=== PATIENT | male | born 1945 | race African-American/Black ===

== ENCOUNTER 2016-03-03 12:49 | Emergency (ER) | payer MEDICARE, OTHER ==
[~2016-03-03] VITALS: Ht 175.3 cm; Wt 78.0 kg
[~2016-03-03 12:49] MED LIST: ACETAMINOPHEN650 M2 ORAL; ATIVAN0.5 MG ORAL; KEPPRA1000 MG ORAL; METOPROLOL SUCC25 MG ORAL; NORCO 10-325 T1 EACH ORAL; XANAX0.25 MG ORAL
[2016-03-03 13:57] VITALS: BP 158/88
[2016-03-03] MEDS ORDERED: NORCO 5-325 TA1 EAC1 ORAL (14:16)
[2016-03-03] MEDS ORDERED: KEPPRA1000 MG ORAL (14:16)
[2016-03-03 14:42] VITALS: BP 158/88
[2016-03-03] MEDS ORDERED: Norco 5mg/325mg tab ORAL ONE (14:45)
--- NOTE | 2016-03-03 19:37 | Emergency Room Report ---
History of Present Illness General Chief Complaint: Pain Source: Patient Present Illness HPI The patient is a 70-year-old male with a history of seizures and chronic right leg pain presenting for medication refill. The patient states that he has run out of medications and is unable to make an appointment with his primary care physician in the meantime. The leg pain is described as a 10 out of 10 dull ache. The patient states that he usually takes [place] for the pain and has run out. The patient denies recent injury. The patient denies any other symptoms including chest pain, shortness of breath , altered level of consciousness, dizziness, blurred vision, headache, nausea, vomiting, numbness or tingling Allergies: Coded Allergies: HALOPERIDOL (Verified Allergy, Mild, 01/13/16) Makes him irritable. THIORIDAZINE (Verified Allergy, Mild, 01/13/16) Makes him violent TRAZODONE (Verified Allergy, Mild, 01/13/16) Too strong; inability to move. Uncoded Allergies: PSYCHOTROPIC MEDICATION (Allergy, Mild, 08/13/14) Patient History Past Medical History: see triage record Pertinent Family History: none Reviewed Nursing Documentation: PMH: Agreed, PSxH: Agreed Nursing Documentation-PMH Hx Cardiac Problems: Yes Hx Hypertension: Yes Hx Cancer: Yes - HX OF PROSTATE Hx Gastrointestinal Problems: No Hx Neurological Problems: Yes Hx Seizures: Yes Review of Systems All Other Systems: negative except mentioned in HPI Physical Exam Vital Signs Date Time Temp Pulse Resp B/P Pulse Ox O2 Delivery O2 Flow Rate FiO2 03/03/16 12:55 97.9 89 20 165/90 100 Room Air Sp02 EP Interpretation: reviewed, normal General Appearance: no apparent distress, alert, GCS 15, non-toxic Head: normocephalic, atraumatic Eyes: bilateral eye PERRL, bilateral eye normal inspection Neck: full range of motion, supple/symm/no masses Respiratory: chest non-tender, lungs clear, normal breath sounds, speaking full sentences Cardiovascular #1: regular rate, rhythm, no edema Musculoskeletal: back normal, normal range of motion, tender - TTP over R hip and knee Neurologic: alert, oriented x3, responsive, motor strength/tone normal, sensory intact, speech normal Psychiatric: judgement/insight normal, memory normal, mood/affect normal, no suicidal/homicidal ideation Skin: normal color, no rash, warm/dry, well hydrated Medical Decision Making PA Attestation Dr. Castaneda is my supervising physician. Patient management was discussed with my supervising physician Diagnostic Impression: Primary Impression: Chronic low back pain Additional Impression: Seizure disorder ER Course The patient is a 70-year-old male with a history of seizures and chronic right leg pain presenting for medication refill. Differential diagnosis considered: Chronic pain, fracture, sprain, contusion Physical exam: The patient is hypertensive. Afebrile. Otherwise vitals within normal limits. No apparent distress There is tenderness to palpation over the entire right hip and knee. Full active range of motion. Slow ambulation. No ecchymosis. No obvious deformity. The patient was given [place] for pain. Patient discharged home with a refill of medications for [place] and Keppra. The patient states that he will walk across the street to make appointment with his primary care physician as discussed. ER precautions given Last Vital Signs Date Time Temp Pulse Resp B/P Pulse Ox O2 Delivery O2 Flow Rate FiO2 03/03/16 14:42 97.9 83 20 158/88 100 Room Air Status: improved Disposition: HOME, SELF-CARE Condition: Improved Scripts Hydrocodone Bit/Acetaminophen 5-325* (NORCO 5-325 TABLET*) 1 Each Tablet 1 TAB ORAL Q6HR Y for For Pain, #15 TAB Prov: ALAN IZAGUIRRE 03/03/16 Levetiracetam (KEPPRA) 1,000 Mg Tablet 1000 MG ORAL BID, #30 TAB 0 Refills Prov: ALAN IZAGUIRRE 03/03/16 Referrals: YU GARZA (PCP) Patient Instructions: Chronic Pain Additional Instructions: I discussed my findings with the patient. All questions and concerns have been answered. Treatment and medication compliance have been addressed. I advised the patient that they need to follow up with PMD in 3-5 days. Return to ED if symptoms worsen, new symptoms arise, or if needed for any reason. Patient verbalized understanding of discharge instructions. The patient is advised he needs to followup with pain management for further care ALAN IZAGUIRRE Mar 03, 2016 19:37
== END 2016-03-03 14:43 | disposition home or self-care (01) ==
LOC: EMR 13:59
DX: M54.5 Low back pain (principal); G89.29 Other chronic pain; Z76.0 Encounter for issue of repeat prescription; G40.909 Epilepsy, unspecified, not intractable, without status epilepticus; I10 Essential (primary) hypertension; Z85.46 Personal history of malignant neoplasm of prostate; Z88.8 Allergy status to other drugs, medicaments and biological substances
CPT/HCPCS: 99282

== ENCOUNTER 2016-03-23 17:14 | Emergency (ER) | payer MEDICARE, OTHER ==
[~2016-03-23] VITALS: Ht 175.3 cm; Wt 77.6 kg
[~2016-03-23 17:14] MED LIST changes: +NORCO 5-325 TA1 EAC1 ORAL
[2016-03-23] MEDS ORDERED: Methocarbamol 750mg tab ORAL ONE (18:30)
[2016-03-23] MEDS ORDERED: ROBAXIN-750750 MG PO (18:30)
[2016-03-23] MEDS ORDERED: Ketorolac 60mg Inj IM ONE (18:30)
--- NOTE | 2016-03-23 18:38 | Emergency Room Report ---
History of Present Illness General Chief Complaint: Pain Source: Patient Present Illness HPI 70 YO M with chronic lower back pain. Pain worse with movement, bending/ stretching. Denies assoc lower extremity weakness, urinary/fecal incontinence, fever/chills, dysuria, history of IVDU or malignancy. Specific request made for [place]. 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 "Nothing else works." Allergies: Coded Allergies: HALOPERIDOL (Verified Allergy, Mild, 01/13/16) Makes him irritable. THIORIDAZINE (Verified Allergy, Mild, 01/13/16) Makes him violent TRAZODONE (Verified Allergy, Mild, 01/13/16) Too strong; inability to move. Uncoded Allergies: PSYCHOTROPIC MEDICATION (Allergy, Mild, 08/13/14) Patient History Past Medical History: none Past Surgical History: none Pertinent Family History: none Social History: Denies: alcohol use, drug use, smoking Immunizations: UTD Reviewed Nursing Documentation: PMH: Agreed, PSxH: Agreed Nursing Documentation-PMH Past Medical History: No History, Except For Hx Cardiac Problems: Yes Hx Hypertension: Yes Hx Cancer: Yes - HX OF PROSTATE Hx Gastrointestinal Problems: No Hx Neurological Problems: Yes Hx Seizures: Yes Review of Systems All Other Systems: negative except mentioned in HPI Physical Exam Vital Signs Date Time Temp Pulse Resp B/P Pulse Ox O2 Delivery O2 Flow Rate FiO2 03/23/16 17:23 98.2 72 19 163/97 98 Room Air Sp02 EP Interpretation: reviewed, normal General Appearance: normal inspection, well appearing, no apparent distress, alert, GCS 15, non-toxic Head: normocephalic, atraumatic Eyes: bilateral eye EOMI, bilateral eye PERRL ENT: normal ENT inspection, hearing grossly normal, normal voice Neck: normal inspection, full range of motion, supple, no bony tend Respiratory: normal inspection, chest non-tender, lungs clear, normal breath sounds Cardiovascular #1: regular rate, rhythm, no edema Gastrointestinal: normal inspection, normal bowel sounds, non tender, soft, no guarding, no hernia Genitourinary: no CVA tenderness Musculoskeletal: normal inspection, back normal, normal range of motion, non- tender, Lilian's Sign negative Neurologic: normal inspection, alert, oriented x3, responsive, turf manager III-XII nml as tested, motor strength/tone normal, speech normal Psychiatric: normal inspection, judgement/insight normal, mood/affect normal Skin: normal inspection, normal color, no rash Lymphatic: normal inspection Medical Decision Making Diagnostic Impression: Primary Impression: Lumbar degenerative disc disease Additional Impressions: Chronic low back pain Qualified Codes: M54.5 - Low back pain; G89.29 - Other chronic pain Drug-seeking behavior ER Course A: low suspicion for cord compression given well appearance, paravertebral ttp, no focal neuro deficits, absence of midline ttp/masses and pain worse with movement with known exacerbating activity IM toradol given in ED DC with Robaxin Advised PMD and Pain Mgmt followup Likely drug seeking behavior Last Vital Signs Date Time Temp Pulse Resp B/P Pulse Ox O2 Delivery O2 Flow Rate FiO2 03/23/16 17:23 98.2 72 19 163/97 98 Room Air Status: improved Disposition: HOME, SELF-CARE Scripts Methocarbamol* (ROBAXIN-750*) 750 Mg Tablet 750 MG PO TID for 30 Days, #60 TAB 0 Refills Prov: STEVE MANUEL M.D. 03/23/16 Patient Instructions: Chronic Pain Additional Instructions: - Take Robaxin as prescribed up to 3x a day - it may take a few days to work. - Followup with the Orthopedist for your right knee as you have been told to do so STEVE MANUEL M.D. Mar 23, 2016 18:38
[2016-03-23 19:11] VITALS: BP 158/95
[2016-03-23 19:25] VITALS: BP 158/95
== END 2016-03-23 19:27 | disposition home or self-care (01) ==
LOC: EMR 18:35
DX: M51.36 Other intervertebral disc degeneration, lumbar region (principal); G89.29 Other chronic pain; Z76.5 Malingerer [conscious simulation]; I10 Essential (primary) hypertension; Z85.46 Personal history of malignant neoplasm of prostate
CPT/HCPCS: 96372; 99283

== ENCOUNTER 2016-05-04 15:19 | Emergency (ER) | payer MEDICARE, OTHER ==
[~2016-05-04] VITALS: Ht 175.3 cm; Wt 78.9 kg
[~2016-05-04 15:19] MED LIST changes: +ROBAXIN-750750 MG PO
[2016-05-04 16:31] VITALS: BP 144/98
[2016-05-04 16:32] VITALS: BP 144/98
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
== END 2016-05-04 18:00 | disposition home or self-care (01) ==
LOC: EMR 17:30
DX: G89.29 Other chronic pain (principal); F41.9 Anxiety disorder, unspecified; Z88.8 Allergy status to other drugs, medicaments and biological substances; I10 Essential (primary) hypertension; Z85.46 Personal history of malignant neoplasm of prostate
CPT/HCPCS: 99282

== ENCOUNTER 2016-07-05 15:30 | Inpatient (IN) | payer MEDICARE, OTHER ==
[~2016-07-05] VITALS: Ht 175.3 cm; Wt 78.9 kg
[2016-07-05 15:49] VITALS: BP 165/96
[2016-07-05] MEDS ORDERED: Famotidine 20 MG/ 2ML VIAL IVP ONE (16:00)
[2016-07-05] MEDS ORDERED: LORazepam Inj 2mg/ml 1ml IV ONE (16:00)
--- NOTE | 2016-07-05 16:13 | Emergency Room Report ---
History of Present Illness General Chief Complaint: General Complaint Source: Patient Present Illness HPI Patient presents with complaints of general body weakness Patient reports that he was recently discharged from [facility] Patient had multiple seizures and describes being intubated He feels some soreness in his throat Denies any chest pain at this time Patient denies any vomiting however he does have increased epigastric burning And reflux sensation Denies any flank pain however he has pain in his upper shoulders pelvic area and lower extremities Denies any focal weakness Allergies: Coded Allergies: HALOPERIDOL (Verified Allergy, Mild, [place] really bad, 07/05/16) Makes him irritable. THIORIDAZINE (Verified Allergy, Mild, [place] really bad, 07/05/16) Makes him violent TRAZODONE (Verified Allergy, Mild, [place] really bad, 07/05/16) Too strong; inability to move. Uncoded Allergies: PSYCHOTROPIC MEDICATION (Allergy, Mild, 08/13/14) Patient History Past Medical History: see triage record Pertinent Family History: none Reviewed Nursing Documentation: PMH: Agreed, PSxH: Agreed Nursing Documentation-PMH Past Medical History: No History, Except For Hx Cardiac Problems: Yes Hx Hypertension: Yes Hx Cancer: Yes - HX OF PROSTATE Hx Gastrointestinal Problems: Yes - reflux Hx Neurological Problems: Yes Hx Seizures: Yes Review of Systems All Other Systems: negative except mentioned in HPI Physical Exam Vital Signs Date Time Temp Pulse Resp B/P Pulse Ox O2 Delivery O2 Flow Rate FiO2 07/05/16 15:36 97.9 82 18 165/96 98 Room Air Sp02 EP Interpretation: reviewed, normal General Appearance: no apparent distress Head: normocephalic, atraumatic Eyes: bilateral eye EOMI, bilateral eye PERRL ENT: hearing grossly normal, normal pharynx, TMs + canals normal, uvula midline Neck: full range of motion, supple, no meningismus, no bony tend Respiratory: lungs clear, normal breath sounds, no rhonchi, no respiratory distress, no retraction, no accessory muscle use Cardiovascular #1: normal peripheral pulses, regular rate, rhythm, no edema, no gallop, no JVD, no murmur Gastrointestinal: normal bowel sounds, non tender, soft, no mass, no organomegaly, non-distended, no guarding, no hernia, no pulsatile mass, no rebound Genitourinary: no CVA tenderness Musculoskeletal: normal inspection Neurologic: oriented x3, responsive, copper plater III-XII nml as tested, motor strength/ tone normal, sensory intact Psychiatric: mood/affect normal Skin: normal color, no rash, warm/dry, palpation normal Lymphatic: normal inspection, no adenopathy Medical Decision Making Diagnostic Impression: Primary Impression: Seizure disorder Additional Impressions: Clonic seizures, intractable Weakness Myalgia ER Course Patient has recent multiple seizures Feels unstable Patient is complex requiring blood work and imaging studies Baseline blood work appear normal thus far Patient continues to feel better At this time requires further inpatient care Labs Test 07/05/16 16:05 White Blood Count 4.0 K/UL (4.8-10.8) Red Blood Count 4.07 M/UL (4.70-6.10) Hemoglobin 12.3 G/DL (14.2-18.0) Hematocrit 37.9 % (42.0-52.0) Mean Corpuscular Volume 93 FL (80-99) Mean Corpuscular Hemoglobin 30.1 PG (27.0-31.0) Mean Corpuscular Hemoglobin Concent 32.4 G/DL (32.0-36.0) Red Cell Distribution Width 21.1 % (11.6-14.8) Platelet Count 238 K/UL (150-450) Mean Platelet Volume 7.0 FL (6.5-10.1) Neutrophils (%) (Auto) 64.7 % (45.0-75.0) Lymphocytes (%) (Auto) 20.5 % (20.0-45.0) Monocytes (%) (Auto) 11.5 % (1.0-10.0) Eosinophils (%) (Auto) 1.4 % (0.0-3.0) Basophils (%) (Auto) 2.0 % (0.0-2.0) Sodium Level 141 mEQ/L (135-145) Potassium Level 3.8 mEQ/L (3.4-4.9) Chloride Level 102 mEQ/L (98-107) Carbon Dioxide Level 24 mEQ/L (20-30) Anion Gap 15 (5-15) Blood Urea Nitrogen 20 mg/dL (7-23) Creatinine 1.4 mg/dL (0.7-1.2) Estimat Glomerular Filtration Rate > 60 mL/min (>60) Glucose Level 101 mg/dL (74-106) Calcium Level 9.4 mg/dL (8.6-10.2) Total Bilirubin 0.5 mg/dL (0.0-1.2) Aspartate Amino Transf (AST/SGOT) 21 U/L (5-40) Alanine Aminotransferase (ALT/SGPT) 15 U/L (3-41) Alkaline Phosphatase 74 U/L (40-129) Total Creatine Kinase 42 U/L (38-174) Creatine Kinase MB < 1.5 ng/mL (< 6.7) Creatine Kinase MB Relative Index Troponin I < 0.30 ng/mL (<=0.30) Total Protein 7.5 g/dL (6.6-8.7) Albumin 4.1 g/dL (3.5-5.2) Globulin 3.4 g/dL Albumin/Globulin Ratio 1.2 (1.0-2.7) Lipase 70 U/L (< 60) Rhythm Strip Diag. Results EP Interpretation: yes Rate: 66 Rhythm: NSR, no PVC's, no ectopy Chest X-Ray Diagnostic Results EP Interpretation: Yes Findings: no consolidation, no effusion, no pneumothorax Number of Views: 1 Last Vital Signs Date Time Temp Pulse Resp B/P Pulse Ox O2 Delivery O2 Flow Rate FiO2 07/05/16 15:49 97.9 18 165/96 98 Room Air 07/05/16 15:36 82 Status: improved Disposition: ADMITTED INPATIENT Condition: Serious LIZ ROCHA D.O. July 05, 2016 16:13
[2016-07-05 16:39] LABS: EOSINOPHILS % (AUTO) 1.4 % (0.0-3.0); LYMPHOCYTES % (AUTO) 20.5 % (20.0-45.0); MEAN CORPUSCULAR HEMOGLOBIN 30.1 PG (27.0-31.0); MEAN CORPUSCULAR HGB CONC 32.4 G/DL (32.0-36.0); MEAN CORPUSCULAR VOLUME 93 FL (80-99); MONOCYTES % (AUTO) 11.5 % (1.0-10.0); NEUTROPHILS % (AUTO) 64.7 % (45.0-75.0); PLATELET COUNT 238 K/UL (150-450); RED BLOOD COUNT 4.07 M/UL (4.70-6.10); RED CELL DISTRIBUTION WIDTH 21.1 % (11.6-14.8)
[2016-07-05 16:50] LABS: TROPONIN I < 0.30 ng/mL (<=0.30)
[2016-07-05 16:51] LABS: ALANINE AMINOTRANSFERASE 15 U/L (3-41); ALBUMIN/GLOBULIN RATIO 1.2 (1.0-2.7); ANION GAP 15 (5-15); ASPARTATE AMINO TRANSFERASE 21 U/L (5-40); CALCIUM 9.4 mg/dL (8.6-10.2); CARBON DIOXIDE 24 mEQ/L (20-30); CHLORIDE 102 mEQ/L (98-107); CREATININE 1.4 mg/dL (0.7-1.2); GLOMERULAR FILTRATION RATE > 60 mL/min (>60); HEMOLYSIS 8; LIPASE 70 U/L (< 60); POTASSIUM 3.8 mEQ/L (3.4-4.9); SODIUM 141 mEQ/L (135-145); TOTAL PROTEIN 7.5 g/dL (6.6-8.7)
[2016-07-05 17:02] LABS: CKMB < 1.5 ng/mL (< 6.7)
[2016-07-05 18:28] VITALS: BP 147/81
[2016-07-05] MEDS ORDERED: XANAX1 MG ORAL (19:00)
[2016-07-05] MEDS ORDERED: KEPPRA750 MG ORAL (19:08)
[2016-07-05] MEDS ORDERED: CARVEDILOL6.25 MG ORAL (19:16)
[2016-07-05] MEDS ORDERED: ATORVASTATIN CA20 MG ORAL (19:16)
[2016-07-05] MEDS ORDERED: LISINOPRIL10 MG ORAL (19:16)
[2016-07-05] MEDS ORDERED: FAMOTIDINE20 MG ORAL (19:16)
[2016-07-05] MEDS ORDERED: OMEPRAZOLE40 M1 ORAL (19:16)
[2016-07-05] MEDS ORDERED: Miralax 17gm pkt ORAL PRN (19:30)
[2016-07-05] MEDS ORDERED: Mylanta II UD 30ml ORAL PRN (19:30)
[2016-07-05] MEDS ORDERED: LORazepam Inj 2mg/ml 1ml IV PRN (19:30)
[2016-07-05 19:54] VITALS: BP 133/88
[2016-07-05] MEDS: Atorvastatin 20mg tab ORAL SCH (20:48)
[2016-07-05] MEDS: Carvedilol 6.25mg Tab ORAL SCH (20:48)
[2016-07-05] MEDS: Heparin 5000 units/ml inj SUBQ SCH (20:55)
[2016-07-05] MEDS: Morphine Sulfate 2mg/ml Inj IVP PRN (21:20)
[2016-07-05 23:59] VITALS: BP 127/82
[2016-07-06 04:00] VITALS: BP 131/74
[2016-07-06] MEDS: Morphine Sulfate 2mg/ml Inj IVP PRN ×3 (05:56→17:51)
[2016-07-06 07:04] LABS: EOSINOPHILS % (AUTO) 0.9 % (0.0-3.0); LYMPHOCYTES % (AUTO) 13.3 % (20.0-45.0); MEAN CORPUSCULAR HEMOGLOBIN 27.8 PG (27.0-31.0); MEAN CORPUSCULAR HGB CONC 31.1 G/DL (32.0-36.0); MEAN CORPUSCULAR VOLUME 89 FL (80-99); MEAN PLATELET VOLUME 7.3 FL (6.5-10.1); MONOCYTES % (AUTO) 10.9 % (1.0-10.0); NEUTROPHILS % (AUTO) 73.9 % (45.0-75.0); PLATELET COUNT 259 K/UL (150-450); RED BLOOD COUNT 4.29 M/UL (4.70-6.10); RED CELL DISTRIBUTION WIDTH 21.6 % (11.6-14.8); WHITE BLOOD COUNT 5.2 K/UL (4.8-10.8)
[2016-07-06 07:26] LABS: ALANINE AMINOTRANSFERASE 17 U/L (3-41); ALBUMIN/GLOBULIN RATIO 1.1 (1.0-2.7); ANION GAP 13 (5-15); ASPARTATE AMINO TRANSFERASE 21 U/L (5-40); CALCIUM 9.2 mg/dL (8.6-10.2); CARBON DIOXIDE 23 mEQ/L (20-30); CHLORIDE 105 mEQ/L (98-107); CREATININE 1.2 mg/dL (0.7-1.2); GLOMERULAR FILTRATION RATE > 60 mL/min (>60); HEMOLYSIS 4; POTASSIUM 3.6 mEQ/L (3.4-4.9); SODIUM 141 mEQ/L (135-145); TOTAL PROTEIN 7.1 g/dL (6.6-8.7)
[2016-07-06 08:03] VITALS: BP 122/73
--- NOTE | 2016-07-06 08:28 | General Progress Note ---
Assessment/Plan Assessment/Plan (1) Lumbar DDD (2) Lumbar Spondylosis (3) Lumbar Radiculopathy (4) Lumbar Herniated disc (5) Multiple Joint OA (6) B/L knee pain Pt will be continued on [place] and Morphine. Pt was d/w Dr. Link and he concurred. Thank you for the courtesy of this consultation. Subjective Date patient seen: July 06, 2016 Time patient seen: 07:30 - am Allergies: Coded Allergies: HALOPERIDOL (Verified Allergy, Mild, [place] really bad, 07/05/16) Makes him irritable. THIORIDAZINE (Verified Allergy, Mild, [place] really bad, 07/05/16) Makes him violent TRAZODONE (Verified Allergy, Mild, [place] really bad, 07/05/16) Too strong; inability to move. Uncoded Allergies: PSYCHOTROPIC MEDICATION (Allergy, Mild, 08/13/14) Subjective Constitutional: Reports: weakness, Denies: chills, diaphoresis, fever, malaise , no symptoms, other HEENT: Denies: blurred vision, double vision, ear discharge, ear pain, eye pain , mouth pain, mouth swelling, no symptoms, nose congestion, nose pain, other, tearing, throat pain, throat swelling Cardiovascular: Denies: chest pain, edema, irregular heart rate, lightheadedness, no symptoms, other, palpitations, syncope Respiratory: Denies: SOB at rest, SOB with excertion, cough, no symptoms, orthopnea, other, shortness of breath, sputum, stridor, wheezing Gastrointestinal/Abdominal: Denies: abdomen distended, abdominal pain, black stools, blood in stool, constipated, diarrhea, difficulty swallowing, nausea, no symptoms, other, poor appetite, poor fluid intake, rectal bleeding, tarry stools, vomiting Genitourinary: Denies: burning, discharge, flank pain, frequency, hematuria, incontinence, no symptoms, other, pain, urgency Neurologic/Psychiatric: Reports: weakness, Denies: anxiety, depressed, emotional problems, headache, no symptoms, numbness, other, paresthesia, pre- existing deficit, seizure, tingling, tremors Endocrine: Denies: excessive sweating, flushing, increased hunger, increased thirst, increased urine, intolerance to cold, intolerance to heat, no symptoms, other, unexplained weight gain, unexplained weight loss Hematologic/Lymphatic: Denies: anemia, easy bleeding, easy bruising, no symptoms, other Subjective Patient has been seen in the past on prior admissions admitted due to seizure. He continues to c/o pain in his back and joints. Started on Morphine and [place]. Objective Last 24 Hour Vital Signs Date Time Temp Pulse Resp B/P Pulse Ox O2 Delivery O2 Flow Rate FiO2 07/06/16 08:03 96.6 66 18 122/73 100 Room Air 07/06/16 04:00 97.9 86 18 131/74 99 Room Air 07/05/16 23:59 98.0 69 18 127/82 100 Room Air 07/05/16 22:14 99.0 07/05/16 20:48 74 133/88 07/05/16 19:54 97.7 74 20 133/88 99 Room Air 07/05/16 18:29 97.9 72 18 147/81 98 Room Air 07/05/16 18:28 72 18 147/81 98 Room Air 07/05/16 15:49 97.9 18 165/96 98 Room Air 07/05/16 15:36 97.9 82 18 165/96 98 Room Air Intake and Output 07/05/16 07/06/16 19:00 07:00 Intake Total 500 ml 200 ml Balance 500 ml 200 ml Intake Oral 0 ml 200 ml IV Total 500 ml # Voids 3 # Bowel Movements 1 1 Laboratory Tests 07/05/16 16:05: White Blood Count 4.0L, Red Blood Count 4.07L, Hemoglobin 12.3L, Hematocrit 37.9L, Mean Corpuscular Volume 93, Mean Corpuscular Hemoglobin 30.1, Mean Corpuscular Hemoglobin Concent 32.4, Red Cell Distribution Width 21.1H, Platelet Count 238, Mean Platelet Volume 7.0, Neutrophils (%) (Auto) 64.7, Lymphocytes (%) (Auto) 20.5, Monocytes (%) (Auto) 11.5H, Eosinophils (%) (Auto) 1.4, Basophils (%) (Auto) 2.0, Sodium Level 141, Potassium Level 3.8, Chloride Level 102, Carbon Dioxide Level 24, Anion Gap 15, Blood Urea Nitrogen 20, Creatinine 1.4H, Estimat Glomerular Filtration Rate > 60, Glucose Level 101, Calcium Level 9.4, Total Bilirubin 0.5, Aspartate Amino Transf (AST/SGOT) 21, Alanine Aminotransferase (ALT/SGPT) 15, Alkaline Phosphatase 74, Total Creatine Kinase 42, Creatine Kinase MB < 1.5, Creatine Kinase MB Relative Index , Troponin I < 0.30, Total Protein 7.5, Albumin 4.1, Globulin 3.4, Albumin/ Globulin Ratio 1.2, Lipase 70H 07/06/16 04:50: White Blood Count 5.2, Red Blood Count 4.29L, Hemoglobin 11.9L, Hematocrit 38.4L , Mean Corpuscular Volume 89, Mean Corpuscular Hemoglobin 27.8, Mean Corpuscular Hemoglobin Concent 31.1L, Red Cell Distribution Width 21.6H, Platelet Count 259, Mean Platelet Volume 7.3, Neutrophils (%) (Auto) 73.9, Lymphocytes (%) (Auto) 13.3L, Monocytes (%) (Auto) 10.9H, Eosinophils (%) (Auto ) 0.9, Basophils (%) (Auto) 1.0, Sodium Level 141, Potassium Level 3.6, Chloride Level 105, Carbon Dioxide Level 23, Anion Gap 13, Blood Urea Nitrogen 18, Creatinine 1.2, Estimat Glomerular Filtration Rate > 60, Glucose Level 97, Calcium Level 9.2, Total Bilirubin 0.3, Aspartate Amino Transf (AST/SGOT) 21, Alanine Aminotransferase (ALT/SGPT) 17, Alkaline Phosphatase 84, Total Protein 7.1, Albumin 3.8, Globulin 3.3, Albumin/Globulin Ratio 1.1 Height (Feet): 5 Height (Inches): 9.00 Weight (Pounds): 174 Objective General Appearance: no apparent distress, alert EENT: PERRL/EOMI, normal ENT inspection Neck: non-tender, normal alignment Cardiovascular: normal rate, regular rhythm Respiratory/Chest: decreased breath sounds Abdomen: non tender, soft Extremities: non-tender Edema: no edema noted Arm (L), no edema noted Arm (R), no edema noted Leg (L), no edema noted Leg (R), no edema noted Pedal (L), no edema noted Pedal (R), no edema noted Generalized Neurologic: alert, oriented x 3 Skin: warm/dry VICTOR M FLORES N. P.Gigi July 06, 2016 08:28
[2016-07-06] MEDS: Carvedilol 6.25mg Tab ORAL SCH ×2 (09:53→20:46)
[2016-07-06] MEDS: Heparin 5000 units/ml inj SUBQ SCH ×2 (09:53→20:54)
[2016-07-06] MEDS: Lisinopril 10mg tab ORAL SCH (09:53)
--- NOTE | 2016-07-06 10:55 | Diagnostic Imaging Report ---
Indication: CP shortness of breath Technique: One view of the chest Comparison: none Findings: Lungs and pleural spaces are clear. Heart size is normal. Again demonstrated is scalloping of the right hemidiaphragm Impression: No acute process
--- NOTE | 2016-07-06 11:30 | Consultation ---
Consult Note Consult Note PODIATRY CONSULTATION DATE OF CONSULTATION: 07/06/16 REASON FOR CONSULT: Right foot pain CONSULTING PHYSICIAN: Jori Sharp DPM COVERING FOR: Edward Wayne DPM HISTORY OF PRESENT ILLNESS: Patient states 3 month history of progressively worsening right foot pain. He states a history of previous bilateral bunion surgery with recurrence of the right foot bunion. He mentions that he has a difficult time finding shoes that are comfortable secondary the bunion deformity. No history of ulceration or drainage noted at the area. No current nausea, vomiting, fevers, or chills reported. Patient has difficulty ambulating secondary to right knee pain. ALLERGIES: Haloperidol, psychotropic medication, thioridazine, and trazodone PAST MEDICAL HISTORY: Prostate cancer, seizure disorder, low back pain, and right knee osteoarthritis SURGICAL HISTORY: Bilateral foot bunionectomy in 2006 and prostate resection SOCIAL HISTORY: Patient states no current tobacco, alcohol, or illicit drug use. Patient states that he quit illicit drug use in his 20s. He is currently homeless. He has one son and 3 daughters. FAMILY HISTORY: Non contributory MEDICATIONS: Reviewed. Please refer to chart for details Last 24 Hour Vital Signs Date Time Temp Pulse Resp B/P Pulse Ox O2 Delivery O2 Flow Rate FiO2 07/06/16 09:53 122/73 07/06/16 09:53 66 122/73 07/06/16 08:03 96.6 66 18 122/73 100 Room Air 07/06/16 04:00 97.9 86 18 131/74 99 Room Air 07/05/16 23:59 98.0 69 18 127/82 100 Room Air 07/05/16 22:14 99.0 07/05/16 20:48 74 133/88 07/05/16 19:54 97.7 74 20 133/88 99 Room Air 07/05/16 18:29 97.9 72 18 147/81 98 Room Air 07/05/16 18:28 72 18 147/81 98 Room Air 07/05/16 15:49 97.9 18 165/96 98 Room Air 07/05/16 15:36 97.9 82 18 165/96 98 Room Air Laboratory Tests Test 07/05/16 16:05 07/06/16 04:50 White Blood Count 4.0 K/UL (4.8-10.8) L 5.2 K/UL (4.8-10.8) Red Blood Count 4.07 M/UL (4.70-6.10) L 4.29 M/UL (4.70-6.10) L Hemoglobin 12.3 G/DL (14.2-18.0) L 11.9 G/DL (14.2-18.0) L Hematocrit 37.9 % (42.0-52.0) L 38.4 % (42.0-52.0) L Mean Corpuscular Volume 93 FL (80-99) 89 FL (80-99) Mean Corpuscular Hemoglobin 30.1 PG (27.0-31.0) 27.8 PG (27.0-31.0) Mean Corpuscular Hemoglobin Concent 32.4 G/DL (32.0-36.0) 31.1 G/DL (32.0-36.0) L Red Cell Distribution Width 21.1 % (11.6-14.8) H 21.6 % (11.6-14.8) H Platelet Count 238 K/UL (150-450) 259 K/UL (150-450) Mean Platelet Volume 7.0 FL (6.5-10.1) 7.3 FL (6.5-10.1) Neutrophils (%) (Auto) 64.7 % (45.0-75.0) 73.9 % (45.0-75.0) Lymphocytes (%) (Auto) 20.5 % (20.0-45.0) 13.3 % (20.0-45.0) L Monocytes (%) (Auto) 11.5 % (1.0-10.0) H 10.9 % (1.0-10.0) H Eosinophils (%) (Auto) 1.4 % (0.0-3.0) 0.9 % (0.0-3.0) Basophils (%) (Auto) 2.0 % (0.0-2.0) 1.0 % (0.0-2.0) Sodium Level 141 mEQ/L (135-145) 141 mEQ/L (135-145) Potassium Level 3.8 mEQ/L (3.4-4.9) 3.6 mEQ/L (3.4-4.9) Chloride Level 102 mEQ/L (98-107) 105 mEQ/L (98-107) Carbon Dioxide Level 24 mEQ/L (20-30) 23 mEQ/L (20-30) Anion Gap 15 (5-15) 13 (5-15) Blood Urea Nitrogen 20 mg/dL (7-23) 18 mg/dL (7-23) Creatinine 1.4 mg/dL (0.7-1.2) H 1.2 mg/dL (0.7-1.2) Estimat Glomerular Filtration Rate > 60 mL/min (>60) > 60 mL/min (>60) Glucose Level 101 mg/dL (74-106) 97 mg/dL (74-106) Calcium Level 9.4 mg/dL (8.6-10.2) 9.2 mg/dL (8.6-10.2) Total Bilirubin 0.5 mg/dL (0.0-1.2) 0.3 mg/dL (0.0-1.2) Aspartate Amino Transf (AST/SGOT) 21 U/L (5-40) 21 U/L (5-40) Alanine Aminotransferase (ALT/SGPT) 15 U/L (3-41) 17 U/L (3-41) Alkaline Phosphatase 74 U/L (40-129) 84 U/L (40-129) Total Creatine Kinase 42 U/L (38-174) Creatine Kinase MB < 1.5 ng/mL (< 6.7) Creatine Kinase MB Relative Index Troponin I < 0.30 ng/mL (<=0.30) Total Protein 7.5 g/dL (6.6-8.7) 7.1 g/dL (6.6-8.7) Albumin 4.1 g/dL (3.5-5.2) 3.8 g/dL (3.5-5.2) Globulin 3.4 g/dL 3.3 g/dL Albumin/Globulin Ratio 1.2 (1.0-2.7) 1.1 (1.0-2.7) Lipase 70 U/L (< 60) H PHYSICAL EXAM: DERM: Hyperkeratosis noted at the medial aspect of the right foot 1st metatarsal head. Pain with palpation of the area and with attempted range of motion of the 1st metatarsophalangeal joint. Surrounding edema present. Old well healed surgical scars of bilateral feet VASC: Pedal pulses palpable NEURO: Sensation in tact to light touch MSK: Right foot hallux valgus with bunion. Hammertoe deformity of toes 3-5 on the left and 2-5 on the right. Muscle strength appropriate for age. Pain with palpation at the medial head of the right foot 1st metatarsal head and with range of motion of the 1st metatarsophalangeal joint . Assessment/Plan - Right foot pain at the medial 1st metatarsal head as well as at the 1st metatarsophalangeal joint. Patient has a bunion with possible bursitis and osteoarthritis. Ordered right foot xray and uric acid levels. Patient to use a post op shoe - Bilateral foot hammertoe deformities. Instructed patient to use shoes that are able to accommodate his foot deformities. Jori Sharp DPM July 06, 2016 11:30
[2016-07-06 11:55] VITALS: BP 127/89
--- NOTE | 2016-07-06 12:16 | Neurology Progress Note ---
Objective Physical Exam Last Vital Signs Date Time Temp Pulse Resp B/P Pulse Ox O2 Delivery O2 Flow Rate FiO2 07/06/16 11:55 97.6 71 18 127/89 100 Room Air Laboratory Tests Test 07/05/16 16:05 07/06/16 04:50 White Blood Count 4.0 K/UL (4.8-10.8) L 5.2 K/UL (4.8-10.8) Red Blood Count 4.07 M/UL (4.70-6.10) L 4.29 M/UL (4.70-6.10) L Hemoglobin 12.3 G/DL (14.2-18.0) L 11.9 G/DL (14.2-18.0) L Hematocrit 37.9 % (42.0-52.0) L 38.4 % (42.0-52.0) L Mean Corpuscular Volume 93 FL (80-99) 89 FL (80-99) Mean Corpuscular Hemoglobin 30.1 PG (27.0-31.0) 27.8 PG (27.0-31.0) Mean Corpuscular Hemoglobin Concent 32.4 G/DL (32.0-36.0) 31.1 G/DL (32.0-36.0) L Red Cell Distribution Width 21.1 % (11.6-14.8) H 21.6 % (11.6-14.8) H Platelet Count 238 K/UL (150-450) 259 K/UL (150-450) Mean Platelet Volume 7.0 FL (6.5-10.1) 7.3 FL (6.5-10.1) Neutrophils (%) (Auto) 64.7 % (45.0-75.0) 73.9 % (45.0-75.0) Lymphocytes (%) (Auto) 20.5 % (20.0-45.0) 13.3 % (20.0-45.0) L Monocytes (%) (Auto) 11.5 % (1.0-10.0) H 10.9 % (1.0-10.0) H Eosinophils (%) (Auto) 1.4 % (0.0-3.0) 0.9 % (0.0-3.0) Basophils (%) (Auto) 2.0 % (0.0-2.0) 1.0 % (0.0-2.0) Sodium Level 141 mEQ/L (135-145) 141 mEQ/L (135-145) Potassium Level 3.8 mEQ/L (3.4-4.9) 3.6 mEQ/L (3.4-4.9) Chloride Level 102 mEQ/L (98-107) 105 mEQ/L (98-107) Carbon Dioxide Level 24 mEQ/L (20-30) 23 mEQ/L (20-30) Anion Gap 15 (5-15) 13 (5-15) Blood Urea Nitrogen 20 mg/dL (7-23) 18 mg/dL (7-23) Creatinine 1.4 mg/dL (0.7-1.2) H 1.2 mg/dL (0.7-1.2) Estimat Glomerular Filtration Rate > 60 mL/min (>60) > 60 mL/min (>60) Glucose Level 101 mg/dL (74-106) 97 mg/dL (74-106) Calcium Level 9.4 mg/dL (8.6-10.2) 9.2 mg/dL (8.6-10.2) Total Bilirubin 0.5 mg/dL (0.0-1.2) 0.3 mg/dL (0.0-1.2) Aspartate Amino Transf (AST/SGOT) 21 U/L (5-40) 21 U/L (5-40) Alanine Aminotransferase (ALT/SGPT) 15 U/L (3-41) 17 U/L (3-41) Alkaline Phosphatase 74 U/L (40-129) 84 U/L (40-129) Total Creatine Kinase 42 U/L (38-174) Creatine Kinase MB < 1.5 ng/mL (< 6.7) Creatine Kinase MB Relative Index Troponin I < 0.30 ng/mL (<=0.30) Total Protein 7.5 g/dL (6.6-8.7) 7.1 g/dL (6.6-8.7) Albumin 4.1 g/dL (3.5-5.2) 3.8 g/dL (3.5-5.2) Globulin 3.4 g/dL 3.3 g/dL Albumin/Globulin Ratio 1.2 (1.0-2.7) 1.1 (1.0-2.7) Lipase 70 U/L (< 60) H Uric Acid 4.6 mg/dL (3.0-7.5) Impression/Recommendations Problems: (1) chronic pain, opiate and benzo dependent (2) exacerbation of seizure d/o 2/2 noncompliance (3) posttraumatic seizure disorder (4) Prostate cancer, primary, 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
--- NOTE | 2016-07-06 14:28 | Diagnostic Imaging Report ---
Indication: Pain Comparison: None Findings: 3 views of the right foot were obtained. The bones are osteopenic. There is a moderate to severe osteoarthrosis of the first MTP joint which is narrowed with osteophytes. Hallux valgus and subluxation noted. This degenerative joint disease also noted within the metatarsal tarsal joints and several interphalangeal joints. There is no fracture or obvious traumatic injury identified. Vascular calcifications are noted. Impression: Degenerative changes as described above.
--- NOTE | 2016-07-06 15:42 | Infectious Diseases Prog Note ---
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 THIORIDAZINE (Verified Allergy, Mild, [place] really bad, 07/05/16) Makes him violent TRAZODONE (Verified Allergy, Mild, [place] really bad, 07/05/16) Too strong; inability to move. Uncoded Allergies: PSYCHOTROPIC MEDICATION (Allergy, Mild, 08/13/14) Objective Vital Signs Last 24 Hour Vital Signs Date Time Temp Pulse Resp B/P Pulse Ox O2 Delivery O2 Flow Rate FiO2 07/06/16 11:55 97.6 71 18 127/89 100 Room Air 07/06/16 09:53 122/73 07/06/16 09:53 66 122/73 07/06/16 08:03 96.6 66 18 122/73 100 Room Air 07/06/16 04:00 97.9 86 18 131/74 99 Room Air 07/05/16 23:59 98.0 69 18 127/82 100 Room Air 07/05/16 22:14 99.0 07/05/16 20:48 74 133/88 07/05/16 19:54 97.7 74 20 133/88 99 Room Air 07/05/16 18:29 97.9 72 18 147/81 98 Room Air 07/05/16 18:28 72 18 147/81 98 Room Air 07/05/16 15:49 97.9 18 165/96 98 Room Air Height (Feet): 5 Height (Inches): 9.00 Weight (Pounds): 174 Laboratory Tests Test 07/05/16 16:05 07/06/16 04:50 White Blood Count 4.0 K/UL (4.8-10.8) L 5.2 K/UL (4.8-10.8) Red Blood Count 4.07 M/UL (4.70-6.10) L 4.29 M/UL (4.70-6.10) L Hemoglobin 12.3 G/DL (14.2-18.0) L 11.9 G/DL (14.2-18.0) L Hematocrit 37.9 % (42.0-52.0) L 38.4 % (42.0-52.0) L Mean Corpuscular Volume 93 FL (80-99) 89 FL (80-99) Mean Corpuscular Hemoglobin 30.1 PG (27.0-31.0) 27.8 PG (27.0-31.0) Mean Corpuscular Hemoglobin Concent 32.4 G/DL (32.0-36.0) 31.1 G/DL (32.0-36.0) L Red Cell Distribution Width 21.1 % (11.6-14.8) H 21.6 % (11.6-14.8) H Platelet Count 238 K/UL (150-450) 259 K/UL (150-450) Mean Platelet Volume 7.0 FL (6.5-10.1) 7.3 FL (6.5-10.1) Neutrophils (%) (Auto) 64.7 % (45.0-75.0) 73.9 % (45.0-75.0) Lymphocytes (%) (Auto) 20.5 % (20.0-45.0) 13.3 % (20.0-45.0) L Monocytes (%) (Auto) 11.5 % (1.0-10.0) H 10.9 % (1.0-10.0) H Eosinophils (%) (Auto) 1.4 % (0.0-3.0) 0.9 % (0.0-3.0) Basophils (%) (Auto) 2.0 % (0.0-2.0) 1.0 % (0.0-2.0) Sodium Level 141 mEQ/L (135-145) 141 mEQ/L (135-145) Potassium Level 3.8 mEQ/L (3.4-4.9) 3.6 mEQ/L (3.4-4.9) Chloride Level 102 mEQ/L (98-107) 105 mEQ/L (98-107) Carbon Dioxide Level 24 mEQ/L (20-30) 23 mEQ/L (20-30) Anion Gap 15 (5-15) 13 (5-15) Blood Urea Nitrogen 20 mg/dL (7-23) 18 mg/dL (7-23) Creatinine 1.4 mg/dL (0.7-1.2) H 1.2 mg/dL (0.7-1.2) Estimat Glomerular Filtration Rate > 60 mL/min (>60) > 60 mL/min (>60) Glucose Level 101 mg/dL (74-106) 97 mg/dL (74-106) Calcium Level 9.4 mg/dL (8.6-10.2) 9.2 mg/dL (8.6-10.2) Total Bilirubin 0.5 mg/dL (0.0-1.2) 0.3 mg/dL (0.0-1.2) Aspartate Amino Transf (AST/SGOT) 21 U/L (5-40) 21 U/L (5-40) Alanine Aminotransferase (ALT/SGPT) 15 U/L (3-41) 17 U/L (3-41) Alkaline Phosphatase 74 U/L (40-129) 84 U/L (40-129) Total Creatine Kinase 42 U/L (38-174) Creatine Kinase MB < 1.5 ng/mL (< 6.7) Creatine Kinase MB Relative Index Troponin I < 0.30 ng/mL (<=0.30) Total Protein 7.5 g/dL (6.6-8.7) 7.1 g/dL (6.6-8.7) Albumin 4.1 g/dL (3.5-5.2) 3.8 g/dL (3.5-5.2) Globulin 3.4 g/dL 3.3 g/dL Albumin/Globulin Ratio 1.2 (1.0-2.7) 1.1 (1.0-2.7) Lipase 70 U/L (< 60) H Uric Acid 4.6 mg/dL (3.0-7.5) Current Medications Medications (Trade) Dose Ordered Sig/Jesi Route PRN Reason Start Time Stop Time Status Last Admin Dose Admin Acetaminophen (Tylenol) 650 mg Q4H PRN ORAL fever 07/05/16 19:30 08/04/16 19:29 Acetaminophen/ Hydrocodone Bitart ([place] 10/325) 1 ea Q4H PRN ORAL Moderate Pain (Pain Scale 4-6) 07/05/16 19:30 07/12/16 19:29 Al Hydroxide/Mg Hydroxide (Mylanta II) 30 ml Q6H PRN ORAL dyspepsia 07/05/16 19:30 08/04/16 19:29 07/06/16 05:29 Atorvastatin Calcium (Lipitor) 20 mg BEDTIME ORAL 07/05/16 21:00 08/04/16 20:59 07/05/16 20:48 Carvedilol (Coreg) 6.25 mg EVERY 12 HOURS ORAL 07/05/16 21:00 08/04/16 20:59 07/06/16 09:53 Dextrose (Dextrose 50%) STAT PRN IV Hypoglycemia 07/05/16 19:30 08/04/16 19:29 Heparin Sodium (Porcine) (Heparin 5000 units/ml) 5,000 units EVERY 12 HOURS SUBQ 07/05/16 21:00 08/04/16 20:59 07/06/16 09:53 Levetiracetam (Keppra) 1,500 mg Q12HR ORAL 07/06/16 21:00 08/05/16 20:59 Lisinopril (Zestril) 10 mg DAILY ORAL 07/06/16 09:00 08/05/16 08:59 07/06/16 09:53 Lorazepam (Ativan 2mg/ml 1ml) 2 mg Q1H PRN IV seizures 07/05/16 19:30 07/12/16 19:29 Morphine Sulfate (Morphine Sulfate) 1 mg Q4H PRN IVP Severe Pain (Pain Scale 7-10) 07/05/16 19:30 07/12/16 19:29 07/06/16 10:40 Ondansetron HCl (Zofran) 4 mg Q6H PRN IVP Nausea & Vomiting 07/05/16 19:30 08/04/16 19:29 Pantoprazole (Protonix) 40 mg EVERY 12 HOURS ORAL 07/06/16 12:00 08/05/16 11:59 07/06/16 11:50 Polyethylene Glycol (Miralax) 17 gm HSPRN PRN ORAL Constipation 07/05/16 19:30 08/04/16 19:29 Zolpidem Tartrate (Ambien) 5 mg HSPRN PRN ORAL Insomnia 07/05/16 19:30 08/04/16 19:29 Lizzy Rothman M.D. July 06, 2016 15:42
[2016-07-06 15:57] VITALS: BP 153/80
[2016-07-06] MEDS ORDERED: FAMOTIDINE20 MG ORAL (17:10)
[2016-07-06] MEDS: Famotidine 20 MG/ 2ML VIAL IVP SCH (17:44)
--- NOTE | 2016-07-06 18:07 | Consultation ---
History of Present Illness General Date patient seen: July 06, 2016 Chief Complaint: General Complaint Referring physician: Dr. Soto Reason for Consultation: inpatient management Present Illness HPI 70 year old male with hx of prostate cancer presented to ER with complaints of general body weakness Patient reports that he was recently discharged from [facility], he had multiple seizures and describes being intubated C/O intractable pain in lower extremities. Allergies: Coded Allergies: HALOPERIDOL (Verified Allergy, Mild, [place] really bad, 07/05/16) Makes him irritable. THIORIDAZINE (Verified Allergy, Mild, [place] really bad, 07/05/16) Makes him violent TRAZODONE (Verified Allergy, Mild, [place] really bad, 07/05/16) Too strong; inability to move. Uncoded Allergies: PSYCHOTROPIC MEDICATION (Allergy, Mild, 08/13/14) Medication History Scheduled Alprazolam* (Xanax*), 1 TAB ORAL TWICE A DAY, (Reported) Atorvastatin Calcium* (Atorvastatin Calcium*), 20 MG ORAL BEDTIME, (Reported) Carvedilol* (Carvedilol*), 6.25 MG ORAL EVERY 12 HOURS, (Reported) Famotidine (Famotidine), 20 MG ORAL TID, (Reported) Levetiracetam (Keppra), 750 MG ORAL TWICE A DAY, (Reported) Lisinopril* (Lisinopril*), 10 MG ORAL DAILY, (Reported) Omeprazole (Omeprazole), 40 MG ORAL DAILY, (Reported) Scheduled PRN Hydrocodone Bit/Acetaminophen 10-325* ([place] 10-325*), 1 TAB ORAL Q4H PRN for For Pain, (Reported) Discontinued Medications Acetaminophen (Acetaminophen 8 Hour), Unknown Dose ORAL Q6H, (Reported) Discontinued Reason: Pt stopped taking med Alprazolam* (Xanax*), Unknown Dose ORAL THREE TIMES A DAY, (Reported) Discontinued Reason: Prescription changed Hydrocodone Bit/Acetaminophen 5-325* ([place] 5-325 Tablet*), 1 TAB ORAL Q6HR PRN for For Pain Discontinued Reason: Pt stopped taking med Levetiracetam (Keppra), 1,000 MG ORAL BID Discontinued Reason: Pt stopped taking med Lorazepam* (Ativan*), MG ORAL for For Anxiety, (Reported) Discontinued Reason: Pt stopped taking med Methocarbamol* (Robaxin-750*), 750 MG PO TID Discontinued Reason: Therapy completed Metoprolol Succinate* (Metoprolol Succinate*), 50 MG ORAL BID, (Reported) Discontinued Reason: Pt stopped taking med Patient History Healthcare decision maker Resuscitation status Full Code Advanced Directive on File Past Medical/Surgical History Past Medical/Surgical History: (1) Drug abuse (2) Lumbar spondylosis (3) Chronic low back pain (4) Prostate cancer, primary, 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 site (5) Chronic pain Review of Systems All Other Systems: negative except mentioned in HPI Physical Exam General Appearance: cachetic Lines, tubes and drains: peripheral HEENT: normocephalic Neck: non-tender, normal alignment, supple Respiratory/Chest: chest wall non-tender, lungs clear Cardiovascular/Chest: normal peripheral pulses, normal rate Last 24 Hour Vital Signs Date Time Temp Pulse Resp B/P Pulse Ox O2 Delivery O2 Flow Rate FiO2 07/06/16 15:57 97.8 57 18 153/80 100 Room Air 07/06/16 11:55 97.6 71 18 127/89 100 Room Air 07/06/16 09:53 122/73 07/06/16 09:53 66 122/73 07/06/16 08:03 96.6 66 18 122/73 100 Room Air 07/06/16 04:00 97.9 86 18 131/74 99 Room Air 07/05/16 23:59 98.0 69 18 127/82 100 Room Air 07/05/16 22:14 99.0 07/05/16 20:48 74 133/88 07/05/16 19:54 97.7 74 20 133/88 99 Room Air 07/05/16 18:29 97.9 72 18 147/81 98 Room Air 07/05/16 18:28 72 18 147/81 98 Room Air Intake and Output 07/05/16 07/06/16 19:00 07:00 Intake Total 500 ml 200 ml Balance 500 ml 200 ml Intake Oral 0 ml 200 ml IV Total 500 ml # Voids 3 # Bowel Movements 1 1 Laboratory Tests Test 07/06/16 04:50 White Blood Count 5.2 K/UL (4.8-10.8) Red Blood Count 4.29 M/UL (4.70-6.10) L Hemoglobin 11.9 G/DL (14.2-18.0) L Hematocrit 38.4 % (42.0-52.0) L Mean Corpuscular Volume 89 FL (80-99) Mean Corpuscular Hemoglobin 27.8 PG (27.0-31.0) Mean Corpuscular Hemoglobin Concent 31.1 G/DL (32.0-36.0) L Red Cell Distribution Width 21.6 % (11.6-14.8) H Platelet Count 259 K/UL (150-450) Mean Platelet Volume 7.3 FL (6.5-10.1) Neutrophils (%) (Auto) 73.9 % (45.0-75.0) Lymphocytes (%) (Auto) 13.3 % (20.0-45.0) L Monocytes (%) (Auto) 10.9 % (1.0-10.0) H Eosinophils (%) (Auto) 0.9 % (0.0-3.0) Basophils (%) (Auto) 1.0 % (0.0-2.0) Sodium Level 141 mEQ/L (135-145) Potassium Level 3.6 mEQ/L (3.4-4.9) Chloride Level 105 mEQ/L (98-107) Carbon Dioxide Level 23 mEQ/L (20-30) Anion Gap 13 (5-15) Blood Urea Nitrogen 18 mg/dL (7-23) Creatinine 1.2 mg/dL (0.7-1.2) Estimat Glomerular Filtration Rate > 60 mL/min (>60) Glucose Level 97 mg/dL (74-106) Uric Acid 4.6 mg/dL (3.0-7.5) Calcium Level 9.2 mg/dL (8.6-10.2) Total Bilirubin 0.3 mg/dL (0.0-1.2) Aspartate Amino Transf (AST/SGOT) 21 U/L (5-40) Alanine Aminotransferase (ALT/SGPT) 17 U/L (3-41) Alkaline Phosphatase 84 U/L (40-129) Total Protein 7.1 g/dL (6.6-8.7) Albumin 3.8 g/dL (3.5-5.2) Globulin 3.3 g/dL Albumin/Globulin Ratio 1.1 (1.0-2.7) Height (Feet): 5 Height (Inches): 9.00 Weight (Pounds): 174 Medications Current Medications Medications (Trade) Dose Ordered Sig/Jesi Route PRN Reason Start Time Stop Time Status Last Admin Dose Admin Acetaminophen (Tylenol) 650 mg Q4H PRN ORAL fever 07/05/16 19:30 08/04/16 19:29 Acetaminophen/ Hydrocodone Bitart ([place] 10/325) 1 ea Q4H PRN ORAL Moderate Pain (Pain Scale 4-6) 07/05/16 19:30 07/12/16 19:29 Al Hydroxide/Mg Hydroxide (Mylanta II) 30 ml Q6H PRN ORAL dyspepsia 07/05/16 19:30 08/04/16 19:29 07/06/16 05:29 Atorvastatin Calcium (Lipitor) 20 mg BEDTIME ORAL 07/05/16 21:00 08/04/16 20:59 07/05/16 20:48 Carvedilol (Coreg) 6.25 mg EVERY 12 HOURS ORAL 07/05/16 21:00 08/04/16 20:59 07/06/16 09:53 Dextrose (Dextrose 50%) STAT PRN IV Hypoglycemia 07/05/16 19:30 08/04/16 19:29 Famotidine (Pepcid I.v.) 20 mg Q12HR IVP 07/06/16 18:00 08/05/16 17:59 07/06/16 17:44 Heparin Sodium (Porcine) (Heparin 5000 units/ml) 5,000 units EVERY 12 HOURS SUBQ 07/05/16 21:00 08/04/16 20:59 07/06/16 09:53 Levetiracetam (Keppra) 1,500 mg Q12HR ORAL 07/06/16 21:00 08/05/16 20:59 Lisinopril (Zestril) 10 mg DAILY ORAL 07/06/16 09:00 08/05/16 08:59 07/06/16 09:53 Lorazepam (Ativan 2mg/ml 1ml) 2 mg Q1H PRN IV seizures 07/05/16 19:30 07/12/16 19:29 Morphine Sulfate (Morphine Sulfate) 1 mg Q4H PRN IVP Severe Pain (Pain Scale 7-10) 07/05/16 19:30 07/12/16 19:29 07/06/16 17:51 Ondansetron HCl (Zofran) 4 mg Q6H PRN IVP Nausea & Vomiting 07/05/16 19:30 08/04/16 19:29 Pantoprazole (Protonix) 40 mg EVERY 12 HOURS ORAL 07/06/16 12:00 08/05/16 11:59 07/06/16 11:50 Polyethylene Glycol (Miralax) 17 gm HSPRN PRN ORAL Constipation 07/05/16 19:30 08/04/16 19:29 Zolpidem Tartrate (Ambien) 5 mg HSPRN PRN ORAL Insomnia 07/05/16 19:30 08/04/16 19:29 Assessment/Plan Problem List: (1) Leg pain ICD Codes: M79.606 - Pain in leg, unspecified SNOMED: 61496551 (2) Prostate cancer, primary, 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
[2016-07-06] MEDS: Atorvastatin 20mg tab ORAL SCH (20:44)
--- NOTE | 2016-07-06 20:46 | Consultation ---
DATE OF CONSULTATION: 07/06/2016 NEUROLOGICAL CONSULTATION CONSULTING PHYSICIAN: Selvin Alonso M.D. REFERRING PHYSICIAN: Bobby Isbell D.O. HISTORY OF PRESENT ILLNESS: The patient is a 70-year-old gentleman who is seen in neurological consultation to evaluate the exacerbation of seizure activities. The patient is known to have chronic seizure disorder. He is successfully maintained on Keppra 1000 mg b.i.d. but five days ago he ran out of the medication, he had five generalized clonic-tonic seizure episodes for which he was taken to [facility] where temporarily was intubated. He was stabilized and was extubated subsequently discharged to the hospital and readmitted to this facility after developing generalized body weakness in right leg, increased epigastric burning, abnormal gait, right knee and left foot pain. Vital signs included blood pressure 165/96. He was afebrile. Imaging studies included chest x-ray revealed no acute process. Lab work was obtained, this revealed a mild anemia, hemoglobin 12.2, hematocrit 37.9. Chemistry panel with creatinine 1.4, otherwise normal including normal troponin. Since admission till present, there was no paroxysmal event noted. The patient has been seen for neurological assessment in December of last year, CAT scan of the brain revealed multiple areas of encephalomalacia including bifrontal, left anterior temporal, left parietal most likely posttraumatic, chronic appearing. The patient has a history of previous multiple head trauma following which he developed seizure disorder. He was maintained on Keppra 1000 mg twice a day, which well controlling his seizures but apparently exacerbation was often. The patient has a history of hypertension, prostate CA with bone metastases, history of chronic pain syndrome, opiate dependent. He is on Xanax 2 mg twice a day for the last year. His most recent EEG study was negative. ALLERGIES: Haldol, trazodone, and some psychotropic medications. MEDICATIONS: Treatment prior to admission also included famotidine, carvedilol, atorvastatin, [place], lisinopril, and omeprazole. FAMILY HISTORY: Noncontributory. SOCIAL HISTORY: Denies alcohol or drug abuse. REVIEW OF SYMPTOMS: Persistent pain in his right knee, left ankle, difficulty ambulation. Denies chest pain or palpitations. No respiratory problems. Denies abdominal pain or discomfort. No urine or bowel incontinence. PHYSICAL EXAMINATION: GENERAL: A well-developed, well-nourished man, no acute distress. VITAL SIGNS: Now stable. Blood pressure was 122/73, temperature 96.6. HEENT: Head, normocephalic. There is no otorrhea. No rhinorrhea. NECK: Supple. No meningeal signs. MUSCULOSKELETAL: Swollen tender right knee Peripheral pulses 1+ symmetric. MENTAL STATUS: The patient is alert and oriented x3 with no evidence of aphasia or apraxia. Cognitive function appropriate although somewhat forgetful on recent events. CRANIAL NERVE II: Pupils both responding to light and accommodation. Extraocular movement intact. No nystagmus. CRANIAL NERVE V: Normal corneal responses. CRANIAL NERVE VII: No facial asymmetry. CRANIAL NERVE VIII: Normal hearing. CRANIAL NERVE IX THROUGH XII: Tongue is in midline. Symmetric palate elevation. MOTOR EXAMINATION: Normal muscle tone. Strength 5/5 in all extremities. No involuntary movement. Deep tendon reflexes 1+ bilaterally symmetric. Plantar response is flexor. Sensory examination normal to pinprick and light touch. Gait limping to the left. IMPRESSION: 1. Posttraumatic chronic seizure disorder exacerbation due to noncompliance. 2. Chronic pain syndrome opiate/benzodiazepine dependent. 3. History of hypertension. 4. History of chronic psychiatric disorder. 5. History of multiple head trauma with traumatic encephalopathy. RECOMMENDATION: 1. Increase Keppra 1500 mg b.i.d. 2. Observe for any paroxysmal events. 3. X-ray of right knee. 4. Psychiatry assessment to address issue of benzodiazepine dependency substituting with antidepressant and antianxiety medications of nonaddictive. Thank you for allowing me to see this interesting patient in neurological consultation. Selvin Alonso M.D. DR: Georgiana JOB#: [id number] CC:
[2016-07-06] MEDS: Zolpidem 5mg tab ORAL PRN (20:55)
[2016-07-06 21:00] VITALS: BP 127/82
--- NOTE | 2016-07-06 21:16 | History and Physical Report ---
DATE OF ADMISSION: 07/06/2016 TIME SEEN: 1 p.m. CONSULTANTS: 1. Isaiah Link M.D. 2. Maria E Shine M.D. 3. Dr. Rodas. 4. Edward Wayne D.P.M. 5. Selvin Alonso M.D. 6. Jj Gill M.D. CHIEF COMPLAINT: History of recurrent seizure, foot wound, and chronic pain, getting worse. BRIEF HISTORY: The patient is a 70-year-old male, who lives at home, presented to [facility] last night with the above-mentioned diagnoses and admitted to medical floor for further treatment. He is slightly anxious, in bed. He complains of general pain. No complaints otherwise. PAST MEDICAL HISTORY: Includes chronic pain, seizure, foot wound, and prostate CA. PAST SURGICAL HISTORY: Bunionectomy and prostate surgery. MEDICATIONS: Keppra, Protonix, Restoril, Lipitor, Coreg, heparin, [place], Mylanta, Ambien, Ativan, and Zofran. ALLERGIES: He stated Haldol, Thorazine, and trazodone. SOCIAL HISTORY: No smoke. Occasional alcohol. No intravenous drug abuse. FAMILY HISTORY: Noncontributory. REVIEW OF SYSTEMS: No chest pain. Slight short of breath. No nausea, vomiting, or diarrhea. PHYSICAL EXAMINATION: GENERAL: Calm in bed, oriented x3, and in no acute distress. VITAL SIGNS: Temperature 97 degrees, pulse 81, respiratory rate 18, and blood pressure 127/89. CARDIOVASCULAR: No murmurs. LUNGS: Distant and clear. ABDOMEN: Bowel sounds positive. Nontender and nondistended. EXTREMITIES: No cyanosis, clubbing, or edema. In ankle area, was 0.5 x 0.5 inch wound, dry and clean. NEUROLOGIC: Cranial nerves II through XII are grossly intact. Deep tendon reflexes 2+/4. Muscle strength 5/5. LABORATORY AND DIAGNOSTIC DATA: Hemoglobin 11.9, otherwise CBC is normal. BMP is normal. ASSESSMENT: 1. History of recurrent seizure. 2. Chronic pain. 3. Anemia. 4. Foot wound. 5. Prostate cancer. PLAN: Continue pre-medications. OT/PT. Dietary followup. Wound care. CBC and BMP in the morning. Seizure and pain control. Resume home medications. Dr. Link, Dr. Shine, Dr. Rodas, Dr. Wayne, Dr. Alonso, and Dr. Gill to consult. We will continue to follow this patient. Bobby Isbell D.O. DR: DOC JOB#: [id number] CC:
--- NOTE | 2016-07-06 21:16 | Consultation ---
DATE OF CONSULTATION: INFECTIOUS DISEASE CONSULTATION REQUESTING PHYSICIAN: Bobby Isbell D.O. REASON FOR CONSULTATION: Bilateral thigh boils, recommendation for antibiotics treatment. HISTORY OF PRESENT ILLNESS: The patient is a 70-year-old male with past medical history of seizure disorder, noncompliance, hypertension and cardiac disease with prostatic cancer and metastases presented to the hospital with recurrent episodes of seizure. The patient is found to have a bilateral thigh boils. He is not sure how they started. Denied any trauma to the thigh. No previous history of skin abscess or skin disease. They started draining on their own. So, he did not seek any medical treatment for his skin lesions and today, he was seen in the emergency room for his recurrent seizure and was found to have boils on both legs. So, I was consulted by the primary provider for antibiotics treatment. PAST MEDICAL HISTORY: Significant for cardiac disease, hypertension, and prostate cancer with metastases. MEDICATIONS: He is on multiple seizure medications. For further details, please refer to the MAR. ALLERGIES: He is allergic to haloperidol, and trazodone. SOCIAL HISTORY: Denied using any drugs, tobacco or alcohol. FAMILY HISTORY: Noncontributory. PHYSICAL EXAMINATION: GENERAL: The patient is a middle age male, up in bed, awake, alert and oriented, not in distress. VITAL SIGNS: Temperature 97.6 degrees, pulse 71, respirations 18, blood pressure 127/89, and saturation 100% on room air. HEENT: Normocephalic and atraumatic. Pupils reactive to light. Dry oral mucosa. NECK: Supple. No lymphadenopathy. CARDIOVASCULAR: Regular rate and rhythm. No murmur. LUNGS: Clear bilaterally. No wheezing or rhonchi. ABDOMEN: Soft, nontender, and nondistended. EXTREMITIES: He had callus on the right foot medial aspect and bilateral thigh boils, some of them dry and open. LABORATORY AND DIAGNOSTIC DATA: Lab showed white count of 5.2, hemoglobin of 11.9, and platelet count of 259,000. BUN of 18 and creatinine of 1.2. Imaging, chest x-ray shows no acute disease. Foot x-ray showed degenerative joint disease. ASSESSMENT AND RECOMMENDATION: 1. Boils of the thigh. The patient will be started on Keflex empiric treatment and continue local wound care. 2. Right foot callus. Grit Removal Operator is following, may need surgical resection. 3. Recurrent seizure due to noncompliance. Continue seizure medications. Neurology is following. Thank you. Lizzy Rothman M.D. DR: JEANNIE JOB#: [id number] CC:
[2016-07-06 23:44] VITALS: BP 132/81
[2016-07-07 04:00] VITALS: BP 129/78
[2016-07-07] MEDS: Norco 10mg/325mg tab ORAL PRN ×2 (05:58→16:13)
[2016-07-07 06:56] LABS: MEAN CORPUSCULAR HEMOGLOBIN 27.7 PG (27.0-31.0); MEAN CORPUSCULAR HGB CONC 31.1 G/DL (32.0-36.0); MEAN CORPUSCULAR VOLUME 89 FL (80-99); MEAN PLATELET VOLUME 7.3 FL (6.5-10.1); PLATELET COUNT 222 K/UL (150-450); RED BLOOD COUNT 4.24 M/UL (4.70-6.10); RED CELL DISTRIBUTION WIDTH 20.5 % (11.6-14.8); WHITE BLOOD COUNT 2.7 K/UL (4.8-10.8)
[2016-07-07 07:15] LABS: ANION GAP 13 (5-15); CALCIUM 9.1 mg/dL (8.6-10.2); CARBON DIOXIDE 25 mEQ/L (20-30); CHLORIDE 102 mEQ/L (98-107); CREATININE 1.2 mg/dL (0.7-1.2); GLOMERULAR FILTRATION RATE > 60 mL/min (>60); HEMOLYSIS 0; POTASSIUM 3.9 mEQ/L (3.4-4.9); SODIUM 140 mEQ/L (135-145)
[2016-07-07 08:08] VITALS: BP 105/76
--- NOTE | 2016-07-07 08:46 | General Progress Note ---
Assessment/Plan Assessment/Plan (1) Lumbar DDD (2) Lumbar Spondylosis (3) Lumbar Radiculopathy (4) Lumbar Herniated disc (5) Multiple Joint OA (6) B/L knee pain Pt will be continued on [place] and Morphine. Pt was d/w Dr. Link and he concurred. Subjective Date patient seen: July 07, 2016 Time patient seen: 07:00 - am Allergies: Coded Allergies: HALOPERIDOL (Verified Allergy, Mild, [place] really bad, 07/05/16) Makes him irritable. THIORIDAZINE (Verified Allergy, Mild, [place] really bad, 07/05/16) Makes him violent TRAZODONE (Verified Allergy, Mild, [place] really bad, 07/05/16) Too strong; inability to move. Uncoded Allergies: PSYCHOTROPIC MEDICATION (Allergy, Mild, 08/13/14) Subjective Constitutional: Reports: weakness, Denies: chills, diaphoresis, fever, malaise , no symptoms, other HEENT: Denies: blurred vision, double vision, ear discharge, ear pain, eye pain , mouth pain, mouth swelling, no symptoms, nose congestion, nose pain, other, tearing, throat pain, throat swelling Cardiovascular: Denies: chest pain, edema, irregular heart rate, lightheadedness, no symptoms, other, palpitations, syncope Respiratory: Denies: SOB at rest, SOB with excertion, cough, no symptoms, orthopnea, other, shortness of breath, sputum, stridor, wheezing Gastrointestinal/Abdominal: Denies: abdomen distended, abdominal pain, black stools, blood in stool, constipated, diarrhea, difficulty swallowing, nausea, no symptoms, other, poor appetite, poor fluid intake, rectal bleeding, tarry stools, vomiting Genitourinary: Denies: burning, discharge, flank pain, frequency, hematuria, incontinence, no symptoms, other, pain, urgency Neurologic/Psychiatric: Reports: weakness, Denies: anxiety, depressed, emotional problems, headache, no symptoms, numbness, other, paresthesia, pre- existing deficit, seizure, tingling, tremors Endocrine: Denies: excessive sweating, flushing, increased hunger, increased thirst, increased urine, intolerance to cold, intolerance to heat, no symptoms, other, unexplained weight gain, unexplained weight loss Hematologic/Lymphatic: Denies: anemia, easy bleeding, easy bruising, no symptoms, other Subjective Pain is stable on the [place] and Morphine as needed. Objective Last 24 Hour Vital Signs Date Time Temp Pulse Resp B/P Pulse Ox O2 Delivery O2 Flow Rate FiO2 07/07/16 08:08 97.5 76 18 105/76 100 Room Air 07/07/16 04:00 97.7 63 18 129/78 99 Room Air 07/06/16 23:44 97.9 65 18 132/81 100 Room Air 07/06/16 21:00 97.7 89 18 127/82 100 Room Air 07/06/16 20:46 89 127/82 07/06/16 15:57 97.8 57 18 153/80 100 Room Air 07/06/16 11:55 97.6 71 18 127/89 100 Room Air 07/06/16 09:53 122/73 07/06/16 09:53 66 122/73 Intake and Output 07/06/16 07/07/16 19:00 07:00 Intake Total 1200 ml 250 ml Balance 1200 ml 250 ml Intake Oral 1200 ml 250 ml # Voids 5 2 Laboratory Tests 07/07/16 05:10: White Blood Count 2.7L, Red Blood Count 4.24L, Hemoglobin 11.7L, Hematocrit 37.7L, Mean Corpuscular Volume 89, Mean Corpuscular Hemoglobin 27.7, Mean Corpuscular Hemoglobin Concent 31.1L, Red Cell Distribution Width 20.5H, Platelet Count 222, Mean Platelet Volume 7.3, Neutrophils (%) (Auto) , Lymphocytes (%) (Auto) , Monocytes (%) (Auto) , Eosinophils (%) (Auto) , Basophils (%) (Auto) , Neutrophils % (Manual) [Pending], Lymphocytes % (Manual) [Pending], Platelet Estimate [Pending], Platelet Morphology [Pending], Sodium Level 140, Potassium Level 3.9, Chloride Level 102, Carbon Dioxide Level 25, Anion Gap 13, Blood Urea Nitrogen 15, Creatinine 1.2, Estimat Glomerular Filtration Rate > 60, Glucose Level 96, Calcium Level 9.1 Height (Feet): 5 Height (Inches): 9.00 Weight (Pounds): 174 Objective General Appearance: no apparent distress, alert EENT: PERRL/EOMI, normal ENT inspection Neck: non-tender, normal alignment Cardiovascular: normal rate, regular rhythm Respiratory/Chest: decreased breath sounds Abdomen: non tender, soft Extremities: non-tender Edema: no edema noted Arm (L), no edema noted Arm (R), no edema noted Leg (L), no edema noted Leg (R), no edema noted Pedal (L), no edema noted Pedal (R), no edema noted Generalized Neurologic: alert, oriented x 3 Skin: warm/dry VICTOR M FLORES July 07, 2016 08:46
[2016-07-07] MEDS: Lisinopril 10mg tab ORAL SCH (09:26)
[2016-07-07] MEDS: Carvedilol 6.25mg Tab ORAL SCH ×2 (09:26→21:00)
[2016-07-07] MEDS: Famotidine 20 MG/ 2ML VIAL IVP SCH ×2 (09:26→21:10)
[2016-07-07] MEDS: Heparin 5000 units/ml inj SUBQ SCH ×2 (09:27→21:06)
[2016-07-07 11:17] LABS: ANISOCYTOSIS 2+; BAND NEUTROPHILS % (MANUAL) 0 % (0-8); BASOPHILS % (MANUAL) 0 % (0-2); EOSINOPHILS % (MANUAL) 2 % (0-3); HYPOCHROMASIA 1+; LYMPHOCYTES % (MANUAL) 41 % (20-45); NEUTROPHILS % (MANUAL) 50 % (45-75); PLATELET ESTIMATE ADEQUATE; PLATELET MORPHOLOGY NORMAL; TOTAL CELLS COUNTED 100
[2016-07-07 12:00] VITALS: BP 117/78
--- NOTE | 2016-07-07 13:01 | General Progress Note ---
Assessment/Plan Problem List: (1) Anemia ICD Codes: D64.9 - Anemia, unspecified SNOMED: 844542519 (2) Left ankle acute pain/numbness/swelling r/o Cellulitis (3) chronic pain, opiate and benzo dependent (4) exacerbation of seizure d/o 2/2 noncompliance Status: stable, progressing, tolerating diet Assessment/Plan ot pt diet pain control wound care cbc bmp am dc plan snf Subjective Constitutional: Reports: weakness Allergies: Coded Allergies: HALOPERIDOL (Verified Allergy, Mild, [place] really bad, 07/05/16) Makes him irritable. THIORIDAZINE (Verified Allergy, Mild, [place] really bad, 07/05/16) Makes him violent TRAZODONE (Verified Allergy, Mild, [place] really bad, 07/05/16) Too strong; inability to move. Uncoded Allergies: PSYCHOTROPIC MEDICATION (Allergy, Mild, 08/13/14) All Systems: reviewed and negative except above Subjective anxious c/o gen pain Objective Last 24 Hour Vital Signs Date Time Temp Pulse Resp B/P Pulse Ox O2 Delivery O2 Flow Rate FiO2 07/07/16 12:00 97.8 68 18 117/78 100 Room Air 07/07/16 09:26 105/76 07/07/16 09:26 76 105/76 07/07/16 08:08 97.5 76 18 105/76 100 Room Air 07/07/16 04:00 97.7 63 18 129/78 99 Room Air 07/06/16 23:44 97.9 65 18 132/81 100 Room Air 07/06/16 21:00 97.7 89 18 127/82 100 Room Air 07/06/16 20:46 89 127/82 07/06/16 15:57 97.8 57 18 153/80 100 Room Air Intake and Output 07/06/16 07/07/16 19:00 07:00 Intake Total 1200 ml 250 ml Balance 1200 ml 250 ml Intake Oral 1200 ml 250 ml # Voids 5 2 Laboratory Tests 07/07/16 05:10: White Blood Count 2.7L, Red Blood Count 4.24L, Hemoglobin 11.7L, Hematocrit 37.7L, Mean Corpuscular Volume 89, Mean Corpuscular Hemoglobin 27.7, Mean Corpuscular Hemoglobin Concent 31.1L, Red Cell Distribution Width 20.5H, Platelet Count 222, Mean Platelet Volume 7.3, Neutrophils (%) (Auto) , Lymphocytes (%) (Auto) , Monocytes (%) (Auto) , Eosinophils (%) (Auto) , Basophils (%) (Auto) , Differential Total Cells Counted 100, Neutrophils % ( Manual) 50, Lymphocytes % (Manual) 41, Monocytes % (Manual) 7, Eosinophils % ( Manual) 2, Basophils % (Manual) 0, Band Neutrophils 0, Platelet Estimate Adequate, Platelet Morphology Normal, Hypochromasia 1+, Anisocytosis 2+, Sodium Level 140, Potassium Level 3.9, Chloride Level 102, Carbon Dioxide Level 25, Anion Gap 13, Blood Urea Nitrogen 15, Creatinine 1.2, Estimat Glomerular Filtration Rate > 60, Glucose Level 96, Calcium Level 9.1 Height (Feet): 5 Height (Inches): 9.00 Weight (Pounds): 174 General Appearance: lethargic EENT: normal ENT inspection Neck: normal alignment Cardiovascular: normal peripheral pulses, normal rate, regular rhythm Respiratory/Chest: chest wall non-tender, lungs clear, normal breath sounds Abdomen: normal bowel sounds, non tender Extremities: normal inspection Edema: no edema noted Arm (L), no edema noted Arm (R), no edema noted Leg (L), no edema noted Leg (R), no edema noted Pedal (L), no edema noted Pedal (R), no edema noted Generalized Neurologic: responsive, motor weakness Skin: normal pigmentation, warm/dry YU GARZA July 07, 2016 13:01
[2016-07-07] MEDS: ALPRAZolam 0.5mg tab ORAL PRN (13:19)
--- NOTE | 2016-07-07 15:12 | Pulmonology Progress Note ---
Assessment/Plan Problems: (1) Leg pain (2) Prostate cancer, primary, 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 site (3) posttraumatic seizure disorder Assessment/Plan pain consult pt/ot anemia w/u creatinine better dc planning Subjective ROS Limited/Unobtainable: No Constitutional: Reports: no symptoms HEENT: Repors: no symptoms Respiratory: Reports: no symptoms Allergies: Coded Allergies: HALOPERIDOL (Verified Allergy, Mild, [place] really bad, 07/05/16) Makes him irritable. THIORIDAZINE (Verified Allergy, Mild, [place] really bad, 07/05/16) Makes him violent TRAZODONE (Verified Allergy, Mild, [place] really bad, 07/05/16) Too strong; inability to move. Uncoded Allergies: PSYCHOTROPIC MEDICATION (Allergy, Mild, 08/13/14) Objective Last 24 Hour Vital Signs Date Time Temp Pulse Resp B/P Pulse Ox O2 Delivery O2 Flow Rate FiO2 07/07/16 12:00 97.8 68 18 117/78 100 Room Air 07/07/16 09:26 105/76 07/07/16 09:26 76 105/76 07/07/16 08:08 97.5 76 18 105/76 100 Room Air 07/07/16 04:00 97.7 63 18 129/78 99 Room Air 07/06/16 23:44 97.9 65 18 132/81 100 Room Air 07/06/16 21:00 97.7 89 18 127/82 100 Room Air 07/06/16 20:46 89 127/82 07/06/16 15:57 97.8 57 18 153/80 100 Room Air Intake and Output 07/06/16 07/07/16 19:00 07:00 Intake Total 1200 ml 250 ml Balance 1200 ml 250 ml Intake Oral 1200 ml 250 ml # Voids 5 2 General Appearance: WD/WN HEENT: normocephalic, atraumatic Respiratory/Chest: chest wall non-tender, lungs clear Cardiovascular: normal peripheral pulses, normal rate Abdomen: normal bowel sounds, soft, non tender Genitourinary: normal external genitalia Extremities: no cyanosis Skin: no rash 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 Complete Laboratory Tests 07/07/16 05:10: White Blood Count 2.7L, Red Blood Count 4.24L, Hemoglobin 11.7L, Hematocrit 37.7L, Mean Corpuscular Volume 89, Mean Corpuscular Hemoglobin 27.7, Mean Corpuscular Hemoglobin Concent 31.1L, Red Cell Distribution Width 20.5H, Platelet Count 222, Mean Platelet Volume 7.3, Neutrophils (%) (Auto) , Lymphocytes (%) (Auto) , Monocytes (%) (Auto) , Eosinophils (%) (Auto) , Basophils (%) (Auto) , Differential Total Cells Counted 100, Neutrophils % ( Manual) 50, Lymphocytes % (Manual) 41, Monocytes % (Manual) 7, Eosinophils % ( Manual) 2, Basophils % (Manual) 0, Band Neutrophils 0, Platelet Estimate Adequate, Platelet Morphology Normal, Hypochromasia 1+, Anisocytosis 2+, Sodium Level 140, Potassium Level 3.9, Chloride Level 102, Carbon Dioxide Level 25, Anion Gap 13, Blood Urea Nitrogen 15, Creatinine 1.2, Estimat Glomerular Filtration Rate > 60, Glucose Level 96, Calcium Level 9.1 Current Medications Medications (Trade) Dose Ordered Sig/Jesi Route PRN Reason Start Time Stop Time Status Last Admin Dose Admin Acetaminophen (Tylenol) 650 mg Q4H PRN ORAL fever 07/05/16 19:30 08/04/16 19:29 Acetaminophen/ Hydrocodone Bitart ([place] 10/325) 1 ea Q4H PRN ORAL Moderate Pain (Pain Scale 4-6) 07/05/16 19:30 07/12/16 19:29 07/07/16 05:58 Al Hydroxide/Mg Hydroxide (Mylanta II) 30 ml Q6H PRN ORAL dyspepsia 07/05/16 19:30 08/04/16 19:29 07/06/16 05:29 Alprazolam (Xanax) 1 mg BID PRN ORAL For Anxiety 07/07/16 10:30 07/14/16 10:29 07/07/16 13:19 Atorvastatin Calcium (Lipitor) 20 mg BEDTIME ORAL 07/05/16 21:00 08/04/16 20:59 07/06/16 20:44 Carvedilol (Coreg) 6.25 mg EVERY 12 HOURS ORAL 07/05/16 21:00 08/04/16 20:59 07/07/16 09:26 Dextrose (Dextrose 50%) STAT PRN IV Hypoglycemia 07/05/16 19:30 08/04/16 19:29 Famotidine (Pepcid I.v.) 20 mg Q12HR IVP 07/06/16 18:00 08/05/16 17:59 07/07/16 09:26 Heparin Sodium (Porcine) (Heparin 5000 units/ml) 5,000 units EVERY 12 HOURS SUBQ 07/05/16 21:00 08/04/16 20:59 07/07/16 09:27 Levetiracetam (Keppra) 1,500 mg Q12HR ORAL 07/06/16 21:00 08/05/16 20:59 07/07/16 09:26 Lisinopril (Zestril) 10 mg DAILY ORAL 07/06/16 09:00 08/05/16 08:59 07/07/16 09:26 Lorazepam (Ativan 2mg/ml 1ml) 2 mg Q1H PRN IV seizures 07/05/16 19:30 07/12/16 19:29 Morphine Sulfate (Morphine Sulfate) 1 mg Q4H PRN IVP Severe Pain (Pain Scale 7-10) 07/05/16 19:30 07/12/16 19:29 07/06/16 17:51 Ondansetron HCl (Zofran) 4 mg Q6H PRN IVP Nausea & Vomiting 07/05/16 19:30 08/04/16 19:29 Pantoprazole (Protonix) 40 mg EVERY 12 HOURS ORAL 07/06/16 12:00 08/05/16 11:59 07/07/16 09:26 Polyethylene Glycol (Miralax) 17 gm HSPRN PRN ORAL Constipation 07/05/16 19:30 08/04/16 19:29 Zolpidem Tartrate (Ambien) 5 mg HSPRN PRN ORAL Insomnia 07/05/16 19:30 08/04/16 19:29 07/06/16 20:55 LAQUITA VZAQUEZ July 07, 2016 15:12
--- NOTE | 2016-07-07 15:14 | Infectious Diseases Prog Note ---
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 THIORIDAZINE (Verified Allergy, Mild, [place] really bad, 07/05/16) Makes him violent TRAZODONE (Verified Allergy, Mild, [place] really bad, 07/05/16) Too strong; inability to move. Uncoded Allergies: PSYCHOTROPIC MEDICATION (Allergy, Mild, 08/13/14) Objective Vital Signs Last 24 Hour Vital Signs Date Time Temp Pulse Resp B/P Pulse Ox O2 Delivery O2 Flow Rate FiO2 07/07/16 12:00 97.8 68 18 117/78 100 Room Air 07/07/16 09:26 105/76 07/07/16 09:26 76 105/76 07/07/16 08:08 97.5 76 18 105/76 100 Room Air 07/07/16 04:00 97.7 63 18 129/78 99 Room Air 07/06/16 23:44 97.9 65 18 132/81 100 Room Air 07/06/16 21:00 97.7 89 18 127/82 100 Room Air 07/06/16 20:46 89 127/82 07/06/16 15:57 97.8 57 18 153/80 100 Room Air Height (Feet): 5 Height (Inches): 9.00 Weight (Pounds): 174 General Appearance: WD/WN, no acute distress HEENT: normocephalic, atraumatic, anicteric, mucous membranes moist Respiratory/Chest: chest wall non-tender, lungs clear, normal breath sounds, no respiratory distress, no accessory muscle use Cardiovascular: normal peripheral pulses, normal rate, regular rhythm, no gallop/murmur, no JVD Abdomen: normal bowel sounds, soft, non tender, no organomegaly, non distended , no mass Extremities: no cyanosis, no clubbing, other - right knee tenderness Skin: no rash, ulcers, other - right foot callus Microbiology Date/Time Source Procedure Growth Status 07/05/16 16:49 Nasal Nares MRSA Culture - Final NO METHICILLIN RESISTANT STAPH AUREUS... Complete Laboratory Tests Test 07/07/16 05:10 White Blood Count 2.7 K/UL (4.8-10.8) L Red Blood Count 4.24 M/UL (4.70-6.10) L Hemoglobin 11.7 G/DL (14.2-18.0) L Hematocrit 37.7 % (42.0-52.0) L Mean Corpuscular Volume 89 FL (80-99) Mean Corpuscular Hemoglobin 27.7 PG (27.0-31.0) Mean Corpuscular Hemoglobin Concent 31.1 G/DL (32.0-36.0) L Red Cell Distribution Width 20.5 % (11.6-14.8) H Platelet Count 222 K/UL (150-450) Mean Platelet Volume 7.3 FL (6.5-10.1) Neutrophils (%) (Auto) % (45.0-75.0) Lymphocytes (%) (Auto) % (20.0-45.0) Monocytes (%) (Auto) % (1.0-10.0) Eosinophils (%) (Auto) % (0.0-3.0) Basophils (%) (Auto) % (0.0-2.0) Differential Total Cells Counted 100 Neutrophils % (Manual) 50 % (45-75) Lymphocytes % (Manual) 41 % (20-45) Monocytes % (Manual) 7 % (1-10) Eosinophils % (Manual) 2 % (0-3) Basophils % (Manual) 0 % (0-2) Band Neutrophils 0 % (0-8) Platelet Estimate Adequate Platelet Morphology Normal Hypochromasia 1+ Anisocytosis 2+ Sodium Level 140 mEQ/L (135-145) Potassium Level 3.9 mEQ/L (3.4-4.9) Chloride Level 102 mEQ/L (98-107) Carbon Dioxide Level 25 mEQ/L (20-30) Anion Gap 13 (5-15) Blood Urea Nitrogen 15 mg/dL (7-23) Creatinine 1.2 mg/dL (0.7-1.2) Estimat Glomerular Filtration Rate > 60 mL/min (>60) Glucose Level 96 mg/dL (74-106) Calcium Level 9.1 mg/dL (8.6-10.2) Current Medications Medications (Trade) Dose Ordered Sig/Jesi Route PRN Reason Start Time Stop Time Status Last Admin Dose Admin Acetaminophen (Tylenol) 650 mg Q4H PRN ORAL fever 07/05/16 19:30 08/04/16 19:29 Acetaminophen/ Hydrocodone Bitart ([place] 10325) 1 ea Q4H PRN ORAL Moderate Pain (Pain Scale 4-6) 07/05/16 19:30 07/12/16 19:29 07/07/16 05:58 Al Hydroxide/Mg Hydroxide (Mylanta II) 30 ml Q6H PRN ORAL dyspepsia 07/05/16 19:30 08/04/16 19:29 07/06/16 05:29 Alprazolam (Xanax) 1 mg BID PRN ORAL For Anxiety 07/07/16 10:30 07/14/16 10:29 07/07/16 13:19 Atorvastatin Calcium (Lipitor) 20 mg BEDTIME ORAL 07/05/16 21:00 08/04/16 20:59 07/06/16 20:44 Carvedilol (Coreg) 6.25 mg EVERY 12 HOURS ORAL 07/05/16 21:00 08/04/16 20:59 07/07/16 09:26 Dextrose (Dextrose 50%) STAT PRN IV Hypoglycemia 07/05/16 19:30 08/04/16 19:29 Famotidine (Pepcid I.v.) 20 mg Q12HR IVP 07/06/16 18:00 08/05/16 17:59 07/07/16 09:26 Heparin Sodium (Porcine) (Heparin 5000 units/ml) 5,000 units EVERY 12 HOURS SUBQ 07/05/16 21:00 08/04/16 20:59 07/07/16 09:27 Levetiracetam (Keppra) 1,500 mg Q12HR ORAL 07/06/16 21:00 08/05/16 20:59 07/07/16 09:26 Lisinopril (Zestril) 10 mg DAILY ORAL 07/06/16 09:00 08/05/16 08:59 07/07/16 09:26 Lorazepam (Ativan 2mg/ml 1ml) 2 mg Q1H PRN IV seizures 07/05/16 19:30 07/12/16 19:29 Morphine Sulfate (Morphine Sulfate) 1 mg Q4H PRN IVP Severe Pain (Pain Scale 7-10) 07/05/16 19:30 07/12/16 19:29 07/06/16 17:51 Ondansetron HCl (Zofran) 4 mg Q6H PRN IVP Nausea & Vomiting 07/05/16 19:30 08/04/16 19:29 Pantoprazole (Protonix) 40 mg EVERY 12 HOURS ORAL 07/06/16 12:00 08/05/16 11:59 07/07/16 09:26 Polyethylene Glycol (Miralax) 17 gm HSPRN PRN ORAL Constipation 07/05/16 19:30 08/04/16 19:29 Zolpidem Tartrate (Ambien) 5 mg HSPRN PRN ORAL Insomnia 07/05/16 19:30 08/04/16 19:29 07/06/16 20:55 Lizzy Rothman M.D. July 07, 2016 15:14
[2016-07-07 16:00] VITALS: BP 156/89
--- NOTE | 2016-07-07 16:32 | Consultation ---
DATE OF CONSULTATION: 07/06/2016 PSYCHOTHERAPY CONSULTATION PROGRESS NOTE CONSULTING PHYSICIAN: Harpal Ledesma M.D. TREATING ATTENDING PHYSICIAN: Bobby Isbell M.D. HISTORY OF PRESENT ILLNESS: This patient is a 70-year-old male patient admitted to the hospital with generalized weakness and intractable seizures. The patient lives independently. The patient has a history of schizophrenia. The patient states that his left him six months ago. The patient states that he has been feeling anxious and depressed as a result. He does not know where she is and he has been feeling very hopeless. The patient still complaining of pain. Due to his feelings of depression, anxiety, major depression, psychotherapy consulted. The patient denies suicidal or homicidal thoughts of ideation. Denies auditory or visual hallucinations, however, states that he is feeling depressed and his . PAST MEDICAL HISTORY: Includes history of seizures, prostate cancer, and chronic pain. ALLERGIES: , Haldol, Thorazine, and trazodone. SUBSTANCE ABUSE HISTORY: The patient denies history of alcohol use or illicit substance use. No smoking. He states that he drinks alcohol occasionally and has no abused alcohol. PSYCHIATRIC HISTORY: The patient has a history of paranoid schizophrenia. He states he has had treatment with psychotropic medications in the past. SOCIAL HISTORY: The patient is a 70-year-old male, who lives independently. Financially sustained through Medicare at this time. MENTAL STATUS EXAMINATION: The patient is alert and oriented x4 to person, place, and time. Mood is anxious. Affect is congruent. Thought process disorganized. The patient has poor attention and concentration. Poor insight, judgment, and impulse control. DIAGNOSES: [place] I Paranoid schizophrenia. [place] II Deferred. [place] III Per History and Physical. [place] IV Problem with social environment. PLAN: This clinician assessed this patient. Provided the patient with supportive psychotherapy, reality orientation, and coping skills. Encouraging the patient to participate in treatment and milieu, anxiety and depression. Continue with medication management and behavioral management. This clinician has reviewed the patient's chart and discussed the treatment with nursing staff. Harpal Ledesma PsyD. DR: Jean Pierre JOB#: [id number] CC:
--- NOTE | 2016-07-07 18:11 | Podiatric Progress Note ---
Assessment/Plan Patient Min Porras Jr is a 70 year old male who was admitted on July 05, 2016 at 16:15 with generalized weakness and seizure disorder Problems: (1) Foot pain, right (2) Foot ulcer with fat layer exposed (3) Callus of foot Assessment/Plan - The patient was consented and a excisional wound debridement was performed down to the level of subcutaneous tissue - Cultures were obtained - Start daily dressing changes - Offload the area with wearing post op shoe Subjective Reason for consult Right foot painful bunion Allergies: Coded Allergies: HALOPERIDOL (Verified Allergy, Mild, [place] really bad, 07/05/16) Makes him irritable. THIORIDAZINE (Verified Allergy, Mild, [place] really bad, 07/05/16) Makes him violent TRAZODONE (Verified Allergy, Mild, [place] really bad, 07/05/16) Too strong; inability to move. Uncoded Allergies: PSYCHOTROPIC MEDICATION (Allergy, Mild, 08/13/14) Subjective No reports of nausea, vomiting, fevers, or chills reported. Patient continues to to have pain on the right foot medial 1st metatarsal head Objective Exam Last 24 Hour Vital Signs Date Time Temp Pulse Resp B/P Pulse Ox O2 Delivery O2 Flow Rate FiO2 07/07/16 16:00 97.9 64 18 156/89 97 Room Air 07/07/16 12:00 97.8 68 18 117/78 100 Room Air 07/07/16 09:26 105/76 07/07/16 09:26 76 105/76 07/07/16 08:08 97.5 76 18 105/76 100 Room Air 07/07/16 04:00 97.7 63 18 129/78 99 Room Air 07/06/16 23:44 97.9 65 18 132/81 100 Room Air 07/06/16 21:00 97.7 89 18 127/82 100 Room Air 07/06/16 20:46 89 127/82 Laboratory Tests Test 07/07/16 05:10 White Blood Count 2.7 K/UL (4.8-10.8) L Red Blood Count 4.24 M/UL (4.70-6.10) L Hemoglobin 11.7 G/DL (14.2-18.0) L Hematocrit 37.7 % (42.0-52.0) L Mean Corpuscular Volume 89 FL (80-99) Mean Corpuscular Hemoglobin 27.7 PG (27.0-31.0) Mean Corpuscular Hemoglobin Concent 31.1 G/DL (32.0-36.0) L Red Cell Distribution Width 20.5 % (11.6-14.8) H Platelet Count 222 K/UL (150-450) Mean Platelet Volume 7.3 FL (6.5-10.1) Neutrophils (%) (Auto) % (45.0-75.0) Lymphocytes (%) (Auto) % (20.0-45.0) Monocytes (%) (Auto) % (1.0-10.0) Eosinophils (%) (Auto) % (0.0-3.0) Basophils (%) (Auto) % (0.0-2.0) Differential Total Cells Counted 100 Neutrophils % (Manual) 50 % (45-75) Lymphocytes % (Manual) 41 % (20-45) Monocytes % (Manual) 7 % (1-10) Eosinophils % (Manual) 2 % (0-3) Basophils % (Manual) 0 % (0-2) Band Neutrophils 0 % (0-8) Platelet Estimate Adequate Platelet Morphology Normal Hypochromasia 1+ Anisocytosis 2+ Sodium Level 140 mEQ/L (135-145) Potassium Level 3.9 mEQ/L (3.4-4.9) Chloride Level 102 mEQ/L (98-107) Carbon Dioxide Level 25 mEQ/L (20-30) Anion Gap 13 (5-15) Blood Urea Nitrogen 15 mg/dL (7-23) Creatinine 1.2 mg/dL (0.7-1.2) Estimat Glomerular Filtration Rate > 60 mL/min (>60) Glucose Level 96 mg/dL (74-106) Calcium Level 9.1 mg/dL (8.6-10.2) Microbiology Date/Time Source Procedure Growth Status 07/05/16 16:49 Nasal Nares MRSA Culture - Final NO METHICILLIN RESISTANT STAPH AUREUS... Complete Exam Narrative Right foot medial 1st metatarsal head with what appears to be a blister surrounded by hyperkeratotic tissue. Pain with palpation. IMAGING STUDIES: Procedure: XRAY Foot Complete R Indication: Pain Comparison: None 07/07/16 Findings: 3 views of the right foot were obtained. The bones are osteopenic. There is a moderate to severe osteoarthrosis of the first MTP joint which is narrowed with osteophytes. Hallux valgus and subluxation noted. This degenerative joint disease also noted within the metatarsal tarsal joints and several interphalangeal joints. There is no fracture or obvious traumatic injury identified. Vascular calcifications are noted. Impression: Degenerative changes as described above. Jori Sharp DPM July 07, 2016 18:11
[2016-07-07] MEDS: Cephalexin 500mg cap ORAL SCH ×2 (18:57→20:59)
[2016-07-07 19:42] VITALS: BP 129/66
[2016-07-07] MEDS: Atorvastatin 20mg tab ORAL SCH (21:00)
[2016-07-07] MEDS: Zolpidem 5mg tab ORAL PRN (21:26)
[2016-07-08] VITALS: BP 138/80
[2016-07-08 04:00] VITALS: BP 142/72
[2016-07-08 07:13] LABS: MEAN CORPUSCULAR HGB CONC 31.7 G/DL (32.0-36.0); MEAN CORPUSCULAR VOLUME 88 FL (80-99); MEAN PLATELET VOLUME 8.1 FL (6.5-10.1); PLATELET COUNT 204 K/UL (150-450); RED BLOOD COUNT 4.02 M/UL (4.70-6.10); RED CELL DISTRIBUTION WIDTH 21.1 % (11.6-14.8); WHITE BLOOD COUNT 2.5 K/UL (4.8-10.8)
[2016-07-08 07:22] LABS: ANION GAP 15 (5-15); CALCIUM 8.9 mg/dL (8.6-10.2); CARBON DIOXIDE 22 mEQ/L (20-30); CHLORIDE 102 mEQ/L (98-107); CREATININE 1.2 mg/dL (0.7-1.2); GLOMERULAR FILTRATION RATE > 60 mL/min (>60); HEMOLYSIS 3; SODIUM 139 mEQ/L (135-145)
[2016-07-08 08:15] VITALS: BP 118/87
[2016-07-08] MEDS: Lisinopril 10mg tab ORAL SCH (08:52)
[2016-07-08] MEDS: Carvedilol 6.25mg Tab ORAL SCH (08:52)
[2016-07-08] MEDS: Cephalexin 500mg cap ORAL SCH ×2 (08:52→14:04)
[2016-07-08] MEDS: Norco 10mg/325mg tab ORAL PRN (08:53)
[2016-07-08] MEDS: Famotidine 20 MG/ 2ML VIAL IVP SCH (08:53)
[2016-07-08] MEDS: ALPRAZolam 0.5mg tab ORAL PRN (08:53)
[2016-07-08] MEDS: Heparin 5000 units/ml inj SUBQ SCH (08:54)
[2016-07-08 09:41] LABS: BAND NEUTROPHILS % (MANUAL) 0 % (0-8); BASOPHILS % (MANUAL) 2 % (0-2); EOSINOPHILS % (MANUAL) 5 % (0-3); LYMPHOCYTES % (MANUAL) 26 % (20-45); NEUTROPHILS % (MANUAL) 61 % (45-75); PLATELET ESTIMATE ADEQUATE; PLATELET MORPHOLOGY NORMAL; TOTAL CELLS COUNTED 100
[2016-07-08 09:42] LABS: ANISOCYTOSIS 1+; HYPOCHROMASIA 1+
--- NOTE | 2016-07-08 10:26 | General Progress Note ---
Assessment/Plan Assessment/Plan (1) Lumbar DDD (2) Lumbar Spondylosis (3) Lumbar Radiculopathy (4) Lumbar Herniated disc (5) Multiple Joint OA (6) B/L knee pain Pt will be continued on [place] and Morphine. Pt was d/w Dr. Link and he concurred. Subjective Date patient seen: July 08, 2016 Time patient seen: 08:45 - am Allergies: Coded Allergies: HALOPERIDOL (Verified Allergy, Mild, [place] really bad, 07/05/16) Makes him irritable. THIORIDAZINE (Verified Allergy, Mild, [place] really bad, 07/05/16) Makes him violent TRAZODONE (Verified Allergy, Mild, [place] really bad, 07/05/16) Too strong; inability to move. Uncoded Allergies: PSYCHOTROPIC MEDICATION (Allergy, Mild, 08/13/14) Subjective Constitutional: Reports: weakness, Denies: chills, diaphoresis, fever, malaise , no symptoms, other HEENT: Denies: blurred vision, double vision, ear discharge, ear pain, eye pain , mouth pain, mouth swelling, no symptoms, nose congestion, nose pain, other, tearing, throat pain, throat swelling Cardiovascular: Denies: chest pain, edema, irregular heart rate, lightheadedness, no symptoms, other, palpitations, syncope Respiratory: Denies: SOB at rest, SOB with excertion, cough, no symptoms, orthopnea, other, shortness of breath, sputum, stridor, wheezing Gastrointestinal/Abdominal: Denies: abdomen distended, abdominal pain, black stools, blood in stool, constipated, diarrhea, difficulty swallowing, nausea, no symptoms, other, poor appetite, poor fluid intake, rectal bleeding, tarry stools, vomiting Genitourinary: Denies: burning, discharge, flank pain, frequency, hematuria, incontinence, no symptoms, other, pain, urgency Neurologic/Psychiatric: Reports: weakness, Denies: anxiety, depressed, emotional problems, headache, no symptoms, numbness, other, paresthesia, pre- existing deficit, seizure, tingling, tremors Endocrine: Denies: excessive sweating, flushing, increased hunger, increased thirst, increased urine, intolerance to cold, intolerance to heat, no symptoms, other, unexplained weight gain, unexplained weight loss Hematologic/Lymphatic: Denies: anemia, easy bleeding, easy bruising, no symptoms, other Subjective He continued to c/o generalized body pain which has been tolerated on the medication. Patient has no new pain complaints. Objective Last 24 Hour Vital Signs Date Time Temp Pulse Resp B/P Pulse Ox O2 Delivery O2 Flow Rate FiO2 07/08/16 08:52 118/87 07/08/16 08:52 130 118/87 07/08/16 08:15 97.7 130 20 118/87 100 Room Air 07/08/16 04:00 97.7 62 20 142/72 98 Room Air 07/08/16 00:00 97.9 59 20 138/80 97 Room Air 07/07/16 21:00 66 129/66 07/07/16 19:42 97.9 66 20 129/66 98 Room Air 07/07/16 16:00 97.9 64 18 156/89 97 Room Air 07/07/16 12:00 97.8 68 18 117/78 100 Room Air Intake and Output 07/07/16 07/08/16 19:00 07:00 Intake Total 1150 ml 240 ml Balance 1150 ml 240 ml Intake Oral 1150 ml 240 ml # Voids 1 # Bowel Movements 2 Laboratory Tests 07/08/16 04:43: Sodium Level 139, Potassium Level 4.0, Chloride Level 102, Carbon Dioxide Level 22, Anion Gap 15, Blood Urea Nitrogen 20, Creatinine 1.2, Estimat Glomerular Filtration Rate > 60, Glucose Level 95, Calcium Level 8.9 07/08/16 04:45: White Blood Count 2.5L, Red Blood Count 4.02L, Hemoglobin 11.2L, Hematocrit 35.5L, Mean Corpuscular Volume 88, Mean Corpuscular Hemoglobin 28.0, Mean Corpuscular Hemoglobin Concent 31.7L, Red Cell Distribution Width 21.1H, Platelet Count 204, Mean Platelet Volume 8.1, Neutrophils (%) (Auto) , Lymphocytes (%) (Auto) , Monocytes (%) (Auto) , Eosinophils (%) (Auto) , Basophils (%) (Auto) , Differential Total Cells Counted 100, Neutrophils % ( Manual) 61, Lymphocytes % (Manual) 26, Monocytes % (Manual) 6, Eosinophils % ( Manual) 5H, Basophils % (Manual) 2, Band Neutrophils 0, Platelet Estimate Adequate, Platelet Morphology Normal, Hypochromasia 1+, Anisocytosis 1+ Height (Feet): 5 Height (Inches): 9.00 Weight (Pounds): 174 Objective General Appearance: no apparent distress, alert EENT: PERRL/EOMI, normal ENT inspection Neck: non-tender, normal alignment Cardiovascular: normal rate, regular rhythm Respiratory/Chest: decreased breath sounds Abdomen: non tender, soft Extremities: non-tender Edema: no edema noted Arm (L), no edema noted Arm (R), no edema noted Leg (L), no edema noted Leg (R), no edema noted Pedal (L), no edema noted Pedal (R), no edema noted Generalized Neurologic: alert, oriented x 3 Skin: warm/dry VICTOR M FLORES July 08, 2016 10:26
[2016-07-08] MEDS: Morphine Sulfate 2mg/ml Inj IVP PRN (11:16)
[2016-07-08] MEDS ORDERED: NUCYNTA75 MG PO (11:47)
[2016-07-08 11:52] VITALS: BP 127/84
--- NOTE | 2016-07-08 13:48 | General Progress Note ---
Assessment/Plan Problem List: (1) Anemia ICD Codes: D64.9 - Anemia, unspecified SNOMED: 381011086 (2) Left ankle acute pain/numbness/swelling r/o Cellulitis (3) chronic pain, opiate and benzo dependent (4) exacerbation of seizure d/o 2/2 noncompliance Status: stable, progressing, tolerating diet Assessment/Plan ot pt diet pain control wound care dc home w Subjective Allergies: Coded Allergies: HALOPERIDOL (Verified Allergy, Mild, [place] really bad, 07/05/16) Makes him irritable. THIORIDAZINE (Verified Allergy, Mild, [place] really bad, 07/05/16) Makes him violent TRAZODONE (Verified Allergy, Mild, [place] really bad, 07/05/16) Too strong; inability to move. Uncoded Allergies: PSYCHOTROPIC MEDICATION (Allergy, Mild, 08/13/14) All Systems: reviewed and negative except above Subjective anxious c/o gen pain Objective Last 24 Hour Vital Signs Date Time Temp Pulse Resp B/P Pulse Ox O2 Delivery O2 Flow Rate FiO2 07/08/16 11:52 98.1 71 20 127/84 100 Room Air 07/08/16 08:52 118/87 07/08/16 08:52 130 118/87 07/08/16 08:15 97.7 98 20 118/87 100 Room Air 07/08/16 04:00 97.7 62 20 142/72 98 Room Air 07/08/16 00:00 97.9 59 20 138/80 97 Room Air 07/07/16 21:00 66 129/66 07/07/16 19:42 97.9 66 20 129/66 98 Room Air 07/07/16 16:00 97.9 64 18 156/89 97 Room Air Intake and Output 07/07/16 07/08/16 19:00 07:00 Intake Total 1150 ml 240 ml Balance 1150 ml 240 ml Intake Oral 1150 ml 240 ml # Voids 1 # Bowel Movements 2 Laboratory Tests 07/08/16 04:43: Sodium Level 139, Potassium Level 4.0, Chloride Level 102, Carbon Dioxide Level 22, Anion Gap 15, Blood Urea Nitrogen 20, Creatinine 1.2, Estimat Glomerular Filtration Rate > 60, Glucose Level 95, Calcium Level 8.9 07/08/16 04:45: White Blood Count 2.5L, Red Blood Count 4.02L, Hemoglobin 11.2L, Hematocrit 35.5L, Mean Corpuscular Volume 88, Mean Corpuscular Hemoglobin 28.0, Mean Corpuscular Hemoglobin Concent 31.7L, Red Cell Distribution Width 21.1H, Platelet Count 204, Mean Platelet Volume 8.1, Neutrophils (%) (Auto) , Lymphocytes (%) (Auto) , Monocytes (%) (Auto) , Eosinophils (%) (Auto) , Basophils (%) (Auto) , Differential Total Cells Counted 100, Neutrophils % ( Manual) 61, Lymphocytes % (Manual) 26, Monocytes % (Manual) 6, Eosinophils % ( Manual) 5H, Basophils % (Manual) 2, Band Neutrophils 0, Platelet Estimate Adequate, Platelet Morphology Normal, Hypochromasia 1+, Anisocytosis 1+ Height (Feet): 5 Height (Inches): 9.00 Weight (Pounds): 174 General Appearance: alert EENT: normal ENT inspection Neck: normal alignment Cardiovascular: normal peripheral pulses, normal rate, regular rhythm Respiratory/Chest: chest wall non-tender, lungs clear, normal breath sounds Abdomen: normal bowel sounds, non tender, soft Extremities: normal inspection Edema: no edema noted Arm (L), no edema noted Arm (R), no edema noted Leg (L), no edema noted Leg (R), no edema noted Pedal (L), no edema noted Pedal (R), no edema noted Generalized Neurologic: responsive, motor weakness Skin: normal pigmentation, warm/dry YU GARZA July 08, 2016 13:48
[2016-07-08] MEDS ORDERED: CEPHALEXIN500 MG ORAL (15:43)
[2016-07-08] MEDS ORDERED: LEVETIRACETAM500 M1 ORAL (15:45)
--- NOTE | 2016-07-08 15:54 | Infectious Diseases Prog Note ---
Assessment/Plan Problems: (1) Boil of lower extremity Assessment & Plan: on keflex for 7 days (2) Callus of foot Assessment & Plan: cigarette seller is following (3) exacerbation of seizure d/o 2/2 noncompliance Assessment & Plan: continue meds, neurology is following Subjective Constitutional: Reports: no symptoms HEENT: Reports: no symptoms Respiratory: Reports: no symptoms Cardiovascular: Reports: no symptoms Gastrointestinal/Abdominal: Reports: no symptoms Genitourinary: Reports: no symptoms Neurologic: Reports: no symptoms Psychiatric: Reports: no symptoms Skin: Reports: other - boils Endocrine: Reports: no symptoms Hematologic: Reports: no symptoms Musculoskeletal: Reports: pain Allergies: Coded Allergies: HALOPERIDOL (Verified Allergy, Mild, [place] really bad, 07/05/16) Makes him irritable. THIORIDAZINE (Verified Allergy, Mild, [place] really bad, 07/05/16) Makes him violent TRAZODONE (Verified Allergy, Mild, [place] really bad, 07/05/16) Too strong; inability to move. Uncoded Allergies: PSYCHOTROPIC MEDICATION (Allergy, Mild, 08/13/14) Objective Vital Signs Last 24 Hour Vital Signs Date Time Temp Pulse Resp B/P Pulse Ox O2 Delivery O2 Flow Rate FiO2 07/08/16 11:52 98.1 71 20 127/84 100 Room Air 07/08/16 08:52 118/87 07/08/16 08:52 130 118/87 07/08/16 08:15 97.7 98 20 118/87 100 Room Air 07/08/16 04:00 97.7 62 20 142/72 98 Room Air 07/08/16 00:00 97.9 59 20 138/80 97 Room Air 07/07/16 21:00 66 129/66 07/07/16 19:42 97.9 66 20 129/66 98 Room Air 07/07/16 16:00 97.9 64 18 156/89 97 Room Air Height (Feet): 5 Height (Inches): 9.00 Weight (Pounds): 174 General Appearance: WD/WN, no acute distress HEENT: normocephalic, atraumatic, anicteric, mucous membranes moist Respiratory/Chest: chest wall non-tender, lungs clear, normal breath sounds, no respiratory distress, no accessory muscle use Cardiovascular: normal peripheral pulses, normal rate, regular rhythm, no gallop/murmur Abdomen: normal bowel sounds, soft, non tender, no organomegaly, no mass, no scars Extremities: no clubbing Skin: no rash Microbiology Date/Time Source Procedure Growth Status 07/05/16 16:49 Nasal Nares MRSA Culture - Final NO METHICILLIN RESISTANT STAPH AUREUS... Complete 07/07/16 17:50 Foot Right Gram Stain - Final Resulted 07/07/16 17:50 Foot Right Wound Culture Pending Resulted Laboratory Tests Test 07/08/16 04:43 07/08/16 04:45 Sodium Level 139 mEQ/L (135-145) Potassium Level 4.0 mEQ/L (3.4-4.9) Chloride Level 102 mEQ/L (98-107) Carbon Dioxide Level 22 mEQ/L (20-30) Anion Gap 15 (5-15) Blood Urea Nitrogen 20 mg/dL (7-23) Creatinine 1.2 mg/dL (0.7-1.2) Estimat Glomerular Filtration Rate > 60 mL/min (>60) Glucose Level 95 mg/dL (74-106) Calcium Level 8.9 mg/dL (8.6-10.2) White Blood Count 2.5 K/UL (4.8-10.8) L Red Blood Count 4.02 M/UL (4.70-6.10) L Hemoglobin 11.2 G/DL (14.2-18.0) L Hematocrit 35.5 % (42.0-52.0) L Mean Corpuscular Volume 88 FL (80-99) Mean Corpuscular Hemoglobin 28.0 PG (27.0-31.0) Mean Corpuscular Hemoglobin Concent 31.7 G/DL (32.0-36.0) L Red Cell Distribution Width 21.1 % (11.6-14.8) H Platelet Count 204 K/UL (150-450) Mean Platelet Volume 8.1 FL (6.5-10.1) Neutrophils (%) (Auto) % (45.0-75.0) Lymphocytes (%) (Auto) % (20.0-45.0) Monocytes (%) (Auto) % (1.0-10.0) Eosinophils (%) (Auto) % (0.0-3.0) Basophils (%) (Auto) % (0.0-2.0) Differential Total Cells Counted 100 Neutrophils % (Manual) 61 % (45-75) Lymphocytes % (Manual) 26 % (20-45) Monocytes % (Manual) 6 % (1-10) Eosinophils % (Manual) 5 % (0-3) H Basophils % (Manual) 2 % (0-2) Band Neutrophils 0 % (0-8) Platelet Estimate Adequate Platelet Morphology Normal Hypochromasia 1+ Anisocytosis 1+ Current Medications Medications (Trade) Dose Ordered Sig/Jesi Route PRN Reason Start Time Stop Time Status Last Admin Dose Admin Acetaminophen (Tylenol) 650 mg Q4H PRN ORAL fever 07/05/16 19:30 08/04/16 19:29 Acetaminophen/ Hydrocodone Bitart ([place] 10/325) 1 ea Q4H PRN ORAL Moderate Pain (Pain Scale 4-6) 07/05/16 19:30 07/12/16 19:29 07/08/16 08:53 Al Hydroxide/Mg Hydroxide (Mylanta II) 30 ml Q6H PRN ORAL dyspepsia 07/05/16 19:30 08/04/16 19:29 07/06/16 05:29 Alprazolam (Xanax) 1 mg BID PRN ORAL For Anxiety 07/07/16 10:30 07/14/16 10:29 07/08/16 08:53 Atorvastatin Calcium (Lipitor) 20 mg BEDTIME ORAL 07/05/16 21:00 08/04/16 20:59 07/07/16 21:00 Carvedilol (Coreg) 6.25 mg EVERY 12 HOURS ORAL 07/05/16 21:00 08/04/16 20:59 07/08/16 08:52 Cephalexin (Keflex) 500 mg FOUR TIMES A DAY ORAL 07/07/16 18:00 07/14/16 17:59 07/08/16 14:04 Dextrose (Dextrose 50%) STAT PRN IV Hypoglycemia 07/05/16 19:30 08/04/16 19:29 Famotidine (Pepcid I.v.) 20 mg Q12HR IVP 07/06/16 18:00 08/05/16 17:59 07/08/16 08:53 Heparin Sodium (Porcine) (Heparin 5000 units/ml) 5,000 units EVERY 12 HOURS SUBQ 07/05/16 21:00 08/04/16 20:59 07/08/16 08:54 Levetiracetam (Keppra) 1,500 mg Q12HR ORAL 07/06/16 21:00 08/05/16 20:59 07/08/16 08:53 Lisinopril (Zestril) 10 mg DAILY ORAL 07/06/16 09:00 08/05/16 08:59 07/08/16 08:52 Lorazepam (Ativan 2mg/ml 1ml) 2 mg Q1H PRN IV seizures 07/05/16 19:30 07/12/16 19:29 Morphine Sulfate (Morphine Sulfate) 1 mg Q4H PRN IVP Severe Pain (Pain Scale 7-10) 07/05/16 19:30 07/12/16 19:29 07/08/16 11:16 Ondansetron HCl (Zofran) 4 mg Q6H PRN IVP Nausea & Vomiting 07/05/16 19:30 08/04/16 19:29 Pantoprazole (Protonix) 40 mg EVERY 12 HOURS ORAL 07/06/16 12:00 08/05/16 11:59 07/08/16 08:52 Polyethylene Glycol (Miralax) 17 gm HSPRN PRN ORAL Constipation 07/05/16 19:30 08/04/16 19:29 Zolpidem Tartrate (Ambien) 5 mg HSPRN PRN ORAL Insomnia 07/05/16 19:30 08/04/16 19:29 07/07/16 21:26 Lizzy Rothman M.D. July 08, 2016 15:54
[2016-07-08 16:02] VITALS: BP 129/79
--- NOTE | 2016-07-08 22:33 | Pulmonology Progress Note ---
Assessment/Plan Problems: (1) Leg pain (2) Prostate cancer, primary, 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 site (3) posttraumatic seizure disorder Assessment/Plan pain consult pt/ot anemia w/u creatinine better dc planning Subjective Allergies: Coded Allergies: HALOPERIDOL (Verified Allergy, Mild, [place] really bad, 07/05/16) Makes him irritable. THIORIDAZINE (Verified Allergy, Mild, [place] really bad, 07/05/16) Makes him violent TRAZODONE (Verified Allergy, Mild, [place] really bad, 07/05/16) Too strong; inability to move. Uncoded Allergies: PSYCHOTROPIC MEDICATION (Allergy, Mild, 08/13/14) Objective Last 24 Hour Vital Signs Date Time Temp Pulse Resp B/P Pulse Ox O2 Delivery O2 Flow Rate FiO2 07/08/16 16:02 97.4 73 20 129/79 100 Room Air 07/08/16 11:52 98.1 71 20 127/84 100 Room Air 07/08/16 08:52 118/87 07/08/16 08:52 130 118/87 07/08/16 08:15 97.7 98 20 118/87 100 Room Air 07/08/16 04:00 97.7 62 20 142/72 98 Room Air 07/08/16 00:00 97.9 59 20 138/80 97 Room Air Intake and Output 07/07/16 07/08/16 19:00 07:00 Intake Total 1150 ml 240 ml Balance 1150 ml 240 ml Intake Oral 1150 ml 240 ml # Voids 1 # Bowel Movements 2 Microbiology Date/Time Source Procedure Growth Status 07/07/16 17:50 Foot Right Gram Stain - Final Resulted 07/07/16 17:50 Foot Right Wound Culture Pending Resulted Laboratory Tests 07/08/16 04:43: Sodium Level 139, Potassium Level 4.0, Chloride Level 102, Carbon Dioxide Level 22, Anion Gap 15, Blood Urea Nitrogen 20, Creatinine 1.2, Estimat Glomerular Filtration Rate > 60, Glucose Level 95, Calcium Level 8.9 07/08/16 04:45: White Blood Count 2.5L, Red Blood Count 4.02L, Hemoglobin 11.2L, Hematocrit 35.5L, Mean Corpuscular Volume 88, Mean Corpuscular Hemoglobin 28.0, Mean Corpuscular Hemoglobin Concent 31.7L, Red Cell Distribution Width 21.1H, Platelet Count 204, Mean Platelet Volume 8.1, Neutrophils (%) (Auto) , Lymphocytes (%) (Auto) , Monocytes (%) (Auto) , Eosinophils (%) (Auto) , Basophils (%) (Auto) , Differential Total Cells Counted 100, Neutrophils % ( Manual) 61, Lymphocytes % (Manual) 26, Monocytes % (Manual) 6, Eosinophils % ( Manual) 5H, Basophils % (Manual) 2, Band Neutrophils 0, Platelet Estimate Adequate, Platelet Morphology Normal, Hypochromasia 1+, Anisocytosis 1+ LAQUITA VAZQUEZ July 08, 2016 22:33
--- NOTE | 2016-07-11 10:30 | Consultation ---
DATE OF CONSULTATION: 07/09/2016 POOR AUDIO QUALITY PSYCHOTHERAPY CONSULTATION PROGRESS NOTE CONSULTING PHYSICIAN: Harpal Ledesma M.D. TREATING ATTENDING PHYSICIAN: Bobby Isbell D.O. History Of Present Illness: The patient is a 70-year-old male patient, who is currently evaluated for 00:23__ poor insight and judgment 00:33 past history of anxiety as well twice. This clinician assessed the patient and provided the patient with supportive psychotherapy, reality orientation, and coping skills. medication management and behavioral management. This clinician has reviewed the patient's chart. Discussed the treatment with nursing staff. 01:02. Harpal Ledesma PsyD. DR: Jean Pierre JOB#: [id number] CC:
--- NOTE | 2016-07-12 13:43 | Discharge Summary ---
Discharge Summary Hospital Course Date of Admission July 05, 2016 at 16:15 Date of Discharge July 08, 2016 at 17:20 Admitting Diagnosis general weakness, intractible seizures HPI Min Porras is a 70 year old male who was admitted on July 05, 2016 at 16:15 for General Weakness,Intractable Seizure Hospital Course dc summary #[id number] Discharge Medications Continued Medications: Alprazolam* (Xanax*) 1 Mg Tablet 1 TAB ORAL TWICE A DAY for For Anxiety, TAB 0 Refills Atorvastatin Calcium* (Atorvastatin Calcium*) 20 Mg Tablet 20 MG ORAL BEDTIME, TAB Carvedilol* (Carvedilol*) 6.25 Mg Tablet 6.25 MG ORAL EVERY 12 HOURS, TAB Cephalexin* (Keflex*) 500 Mg Capsule 500 MG ORAL QID for 5 Days, #14 CAP 0 Refills Hydrocodone Bit/Acetaminophen 10-325* ([place] 10-325*) 1 Each Tablet 1 TAB ORAL Q4H PRN for For Pain, TAB 0 Refills Patient takes it three times a day. Levetiracetam (Levetiracetam) 500 Mg Tab.er.24h 1500 MG ORAL Q12HR, #30 TAB 0 Refills Lisinopril* (Lisinopril*) 10 Mg Tablet 10 MG ORAL DAILY, TAB Omeprazole (Omeprazole) 40 Mg Capsule.dr 40 MG ORAL DAILY, CAP Tapentadol Hcl (Nucynta) 75 Mg Tablet 75 MG PO Q8HR PRN for For Pain, TAB Discontinued Medications: Levetiracetam (Keppra) 750 Mg Tablet 750 MG ORAL TWICE A DAY, TAB Discharge Condition Upon Discharge: stable Discharge Disposition Patient was discharged to Home with Home Health(06) Discharge Diagnoses: Discharge Instructions Discharge Instructions Special Instructions I have been assigned to complete a D/C Summary on this account. I was not involved in the patient management Sharla Mandujano NP ([place]) July 12, 2016 13:43
--- NOTE | 2016-07-13 00:45 | Discharge Summary 2 SIG ---
DATE OF ADMISSION: 07/05/2016 DATE OF DISCHARGE: 07/08/2016 REASON FOR ADMISSION: 70-year-old male with history of prostate cancer with metastasis, chronic pain syndrome and seizure disorder presented with complaint of generalized body weakness. The patient was recently discharged from [facility]. The patient had a history of seizure and required intubation. The patient was noncompliant with medications at home. Workup in the emergency room revealed stable blood work. No leukocytosis. Blood pressure slightly elevated 165/96. Pulse oximetry stable on room air. Stable electrolytes, creatinine -1.4. Troponin negative. LFT stable. Lipase slightly elevated at 70. EKG showed normal sinus rhythm. No ischemic changes. Chest x-ray showed no consolidation, no effusion, and no pneumothorax. The patient admitted. ADMITTING DIAGNOSES: 1. Seizure disorder exacerbation. 2. Intractable chronic seizure. 3. Prostate cancer with metastasis. 4. Right foot bunion pain. 5. Chronic pain syndrome. HOSPITAL COURSE: The patient admitted. Neurology, ID, Podiatry, Pulmonary, Pain management and Psychiatric consults was requested. Per neurologist, Keppra was increased to 1500 mg twice a day. According to neurologist, this patient had a seizure disorder exacerbation secondary to noncompliance along with posttraumatic chronic seizure disorder. The patient also had a chronic pain syndrome, opiate and benzodiazepine dependence. He recommended to remove the patient from opiates and benzodiazepines, pain consult was requested. capital markets specialist seen and evaluated the patient and optimized analgesic regimen. The patient was hydrated. Fall precautions were maintained. The patient started to work with physical and occupational therapists. DVT and GI prophylaxis provided. ID seen the patient for right foot ulcer and boils on the thigh. The patient was on empiric IV antibiotics which changed to oral prior to discharge. Wound culture revealed Staph coagulase-negative. Blood pressure was managed with the beta-michele and MARY inhibitor, and was stable. Statin was continued. Supplemental oxygen and pulmonary toilet provided as needed. Pulse oximetry stable on room air. With intravenous hydration, creatinine down to 1.2. Shaper Set Up Operator seen the patient. The patient undergone debridement of the right foot ulcer. Wound care was done with daily dressing changes. Again, the patient was on antibiotics, which changed to oral upon discharge. Wound care would be done by home health after discharge. For bilateral foot hammertoe deformities, solution consultant recommended to use shoes to accommodate his foot deformity. For the right foot bunion pain, he recommended to use postoperative shoe. Shaper Set Up Operator ordered x-ray to rule out bursitis versus osteoarthritis. X-ray showed chronic degenerative changes, but no evidence of fracture and no other evidence of traumatic injury. Psychologist seen and evaluated the patient, diagnosed with paranoid schizophrenia. The patient was provided with supportive psychotherapy, reality orientation, and copying skills. Psychologist recommended to continue medication management, behavioral management and encouraged the patient to participate in treatment. The patient was stable for discharge home with home health. DISCHARGE DIAGNOSES: 1. Posttraumatic chronic seizure disorder exacerbation secondary to noncompliance. 2. Chronic pain syndrome, opiates and benzodiazepine dependent. 3. Hypertension. 4. Paranoid schizophrenia. 5. History of multiple head trauma with traumatic encephalopathy. 6. Prostate cancer with metastasis. 7. Right foot ulcer 8. Status post ulcer debridement. 9. Bilateral foot hammertoe deformities. 10. Lumbar degenerative disk disease. 11. Lumbar spondylosis. 12. Lumbar radiculopathy. 13. Lumbar herniated disc. 14. Multiple joint osteoarthritis. 15. Bilateral knee pain. 16. Lower extremity boils DISCHARGE MEDICATIONS: See medication reconciliation list. Continue seven more days of Keflex upon discharge. DISCHARGE INSTRUCTIONS: The patient discharged home with home health services for wound care. Follow up with the primary medical doctor. Bobby Isbell D.O. I have been assigned to dictate discharge summary on this account and I was not involved in the patient's management. Sharla GilVassar Brothers Medical Centeradenike N.PKar DR: MANA JOB#: [id number] CC: GEOFF
== END 2016-07-08 17:20 | disposition home health service (06) | DRG 41 ==
LOC: EMR 16:14 → 4E 16:15 → EDBEDREQ 16:21
PROC: 0JBQ0ZZ Excision of Right Foot Subcutaneous Tissue and Fascia, Open Approach (ICD-10-PCS; principal; 2016-07-07)
DX: R56.1 Post traumatic seizures (principal); C79.51 Secondary malignant neoplasm of bone; C61 Malignant neoplasm of prostate; F11.20 Opioid dependence, uncomplicated; F13.20 Sedative, hypnotic or anxiolytic dependence, uncomplicated; L02.429 Furuncle of limb, unspecified; F20.0 Paranoid schizophrenia; I10 Essential (primary) hypertension; D64.9 Anemia, unspecified; Z91.14 Patient's other noncompliance with medication regimen; Z59.0 Homelessness; M20.42 Other hammer toe(s) (acquired), left foot; M20.41 Other hammer toe(s) (acquired), right foot; M20.11 Hallux valgus (acquired), right foot; M21.611 Bunion of right foot; L98.499 Non-pressure chronic ulcer of skin of other sites with unspecified severity; M47.816 Spondylosis without myelopathy or radiculopathy, lumbar region; G89.4 Chronic pain syndrome; L02.426 Furuncle of left lower limb; L02.425 Furuncle of right lower limb; M51.16 Intervertebral disc disorders with radiculopathy, lumbar region; M19.90 Unspecified osteoarthritis, unspecified site; L84 Corns and callosities; Z87.820 Personal history of traumatic brain injury
CPT/HCPCS: 36415; 71010; 80048; 80053; 80299; 82550; 82553; 83690; 84484; 84550; 85007; 85025; 87070; 87081; 87205; 93005; 97803

== ENCOUNTER 2016-08-18 17:35 | Inpatient (IN) | payer MEDICARE, OTHER ==
[~2016-08-18] VITALS: Ht 165.1 cm; Wt 75.7 kg
[~2016-08-18 17:35] MED LIST changes: +ATORVASTATIN CA20 MG ORAL; +CARVEDILOL6.25 MG ORAL; +CEPHALEXIN500 MG ORAL; +FAMOTIDINE20 MG ORAL; +KEPPRA750 MG ORAL; +LEVETIRACETAM500 M1 ORAL; +LISINOPRIL10 MG ORAL; +NUCYNTA75 MG PO; +OMEPRAZOLE40 M1 ORAL; +XANAX1 MG ORAL
[2016-08-18 17:49] VITALS: BP 93/67
--- NOTE | 2016-08-18 18:33 | Emergency Room Report ---
History of Present Illness General Chief Complaint: Seizure Source: Patient, Medical Record, PMD Present Illness HPI 70YOM walk-in with cane with concern for seizures and chronic pain. States last seizure 08/08 at [facility]. Compliant with keppra 1500mg BID - took AM dose. No seizures since. Per PMD Dr Isbell, patient is under chronic pain mgmt. PMD states patient was at clinic and BP was 70/40 so they were unable to provide additional Rx analgesia there. However patient states his doctor "wasnt there" so he came to ED. States ran out of [place]. Multiple requests made for narcotics here and for Rx C/o chronic leg pain, R>L. No recent trauma otherwise denies chest pain, SOB, abd pain, headache, urinary complaints, fever/ chills. Allergies: Coded Allergies: HALOPERIDOL (Verified Allergy, Mild, [place] really bad, 07/05/16) Makes him irritable. THIORIDAZINE (Verified Allergy, Mild, [place] really bad, 07/05/16) Makes him violent TRAZODONE (Verified Allergy, Mild, [place] really bad, 07/05/16) Too strong; inability to move. Uncoded Allergies: PSYCHOTROPIC MEDICATION (Allergy, Mild, 08/13/14) Patient History Past Medical History: seizures Pertinent Family History: none Social History: Denies: alcohol use, drug use, smoking Immunizations: UTD Reviewed Nursing Documentation: PMH: Agreed, PSxH: Agreed Nursing Documentation-PMH Past Medical History: No History, Except For Hx Cardiac Problems: Yes Hx Hypertension: Yes Hx Cancer: Yes Hx Gastrointestinal Problems: Yes Hx Neurological Problems: Yes Hx Seizures: Yes - Last seizure: 07/26/16 Review of Systems All Other Systems: negative except mentioned in HPI Physical Exam Vital Signs Date Time Temp Pulse Resp B/P Pulse Ox O2 Delivery O2 Flow Rate FiO2 08/18/16 17:39 97.5 85 14 93/67 97 Room Air Sp02 EP Interpretation: reviewed, normal General Appearance: normal inspection, well appearing, no apparent distress, alert, GCS 15, non-toxic, other - Well appearing elderly male sitting upright in stretcher Head: normocephalic, atraumatic Eyes: bilateral eye EOMI, bilateral eye PERRL ENT: normal ENT inspection, hearing grossly normal, normal voice Neck: normal inspection, full range of motion, supple, no bony tend Respiratory: normal inspection, lungs clear, normal breath sounds, no respiratory distress, no retraction, no wheezing Cardiovascular #1: regular rate, rhythm, no edema Gastrointestinal: normal inspection, normal bowel sounds, non tender, soft, no guarding, no hernia Genitourinary: no CVA tenderness Musculoskeletal: normal inspection, back normal, normal range of motion, Lilian' s Sign negative Neurologic: normal inspection, alert, oriented x3, responsive, employment office clerk III-XII nml as tested, motor strength/tone normal, speech normal Psychiatric: normal inspection, judgement/insight normal, mood/affect normal Skin: normal inspection, normal color, no rash Lymphatic: normal inspection Medical Decision Making Diagnostic Impression: Primary Impression: Leg pain Qualified Codes: M79.604 - Pain in right leg Additional Impressions: chronic pain, opiate and benzo dependent GERSON (acute kidney injury) Leukocytosis Qualified Codes: D72.829 - Elevated white blood cell count, unspecified Hypotension Qualified Codes: I95.9 - Hypotension, unspecified ER Course Hypotension - Initial BP was 93/67, was done with extra-large adult cuff. Much improved from 70/40 allegedly at PMD's office - Afebrile. No complaints. No signs of sepsis. Very well appearing - Elevated Leuks 12K. Hb also 8.9, acutely low from previous - Blood Cx pending. Empiric Abx given - BP improved with 1L NS - CXR does not show PNA. Patient has not provided urine at time of admission. - Might be multifactorial from infection plus acute blood loss. Not acutely low to warrant transfusion at this time. GERSON - Significant bump in serumCr 5.3 - Also with hypotension, definitely an acute dehdyration component as well Endorsed to Dr Isbell for tele admit at 742pm EKG Diagnostic Results Rate: normal Rhythm: NSR ST Segments: no acute changes ASA given to the pt in ED: No Rhythm Strip Diag. Results EP Interpretation: yes Rate: 70 Rhythm: NSR, no PVC's, no ectopy Chest X-Ray Diagnostic Results Chest X-Ray Diagnostic Results : Chest X-Ray Ordered: Yes # of Views/Limited/Complete: 1 View Indication: Chest Pain EP Interpretation: Yes Interpretation: no consolidation, no effusion, no pneumothorax, no acute cardiopulmonary disease Impression: No acute disease Interpreting ER Provider: Electronically signd by Dr Manuel Last Vital Signs Date Time Temp Pulse Resp B/P Pulse Ox O2 Delivery O2 Flow Rate FiO2 08/18/16 17:50 85 14 Room Air 08/18/16 17:49 97.5 93/67 97 Status: improved Disposition: ADMITTED INPATIENT Condition: Serious STEVE MANUEL M.D. Aug 18, 2016 18:33
[2016-08-18 19:00] VITALS: BP 98/48
[2016-08-18 19:03] LABS: BASOPHILS % (AUTO) 0.8 % (0.0-2.0); EOSINOPHILS % (AUTO) 0.2 % (0.0-3.0); LYMPHOCYTES % (AUTO) 4.7 % (20.0-45.0); MEAN CORPUSCULAR HEMOGLOBIN 28.1 PG (27.0-31.0); MEAN CORPUSCULAR HGB CONC 31.7 G/DL (32.0-36.0); MEAN CORPUSCULAR VOLUME 89 FL (80-99); MEAN PLATELET VOLUME 6.5 FL (6.5-10.1); MONOCYTES % (AUTO) 14.9 % (1.0-10.0); NEUTROPHILS % (AUTO) 79.4 % (45.0-75.0); PLATELET COUNT 197 K/UL (150-450); RED BLOOD COUNT 3.17 M/UL (4.70-6.10); WHITE BLOOD COUNT 12.4 K/UL (4.8-10.8)
[2016-08-18 19:05] VITALS: BP 106/52
[2016-08-18 19:25] LABS: ALBUMIN/GLOBULIN RATIO 1.1 (1.0-2.7); CALCIUM 8.4 mg/dL (8.6-10.2); CREATININE 5.3 mg/dL (0.7-1.2); GLOMERULAR FILTRATION RATE 13.1 mL/min (>60); POTASSIUM 4.9 mEQ/L (3.4-4.9); TOTAL PROTEIN 6.7 g/dL (6.6-8.7)
[2016-08-18 21:44] VITALS: BP 143/72
[2016-08-18 21:47] VITALS: BP 115/63
[2016-08-18] MEDS ORDERED: Miralax 17gm pkt ORAL PRN (22:30)
[2016-08-18] MEDS ORDERED: Zolpidem 5mg tab ORAL PRN (22:30)
[2016-08-18] MEDS ORDERED: Mylanta II UD 30ml ORAL PRN (22:30)
[2016-08-18] MEDS ORDERED: LORazepam Inj 2mg/ml 1ml IV PRN (22:30)
[2016-08-18 23:09] LABS: URIC ACID 8.1 mg/dL (3.0-7.5)
[2016-08-18] MEDS: LORazepam 1mg tab ORAL PRN (23:50)
[2016-08-18 23:54] VITALS: BP 117/64
[2016-08-19] MEDS: Morphine Sulfate 2mg/ml Inj IVP PRN ×2 (03:18→10:00)
[2016-08-19 04:04] VITALS: BP 128/78
[2016-08-19] MEDS ORDERED: CARDIZEM30 M1 PO (05:27)
[2016-08-19] MEDS ORDERED: ALPRAZOLAM1 MG ORAL (05:27)
[2016-08-19] MEDS ORDERED: PANTOPRAZOLE SO20 MG ORAL (05:27)
[2016-08-19] MEDS ORDERED: NAPROXEN500 M2 ORAL (05:27)
[2016-08-19] MEDS ORDERED: LISINOPRIL5 MG ORAL (05:27)
[2016-08-19] MEDS ORDERED: CARAFATE1 G1 ORAL (05:27)
[2016-08-19] MEDS ORDERED: BUSPIRONE HCL10 M1 ORAL (05:27)
[2016-08-19 07:08] LABS: BASOPHILS % (AUTO) 0.4 % (0.0-2.0); EOSINOPHILS % (AUTO) 1.4 % (0.0-3.0); LYMPHOCYTES % (AUTO) 11.8 % (20.0-45.0); MEAN CORPUSCULAR HEMOGLOBIN 28.4 PG (27.0-31.0); MEAN CORPUSCULAR HGB CONC 32.2 G/DL (32.0-36.0); MEAN CORPUSCULAR VOLUME 88 FL (80-99); MEAN PLATELET VOLUME 6.7 FL (6.5-10.1); MONOCYTES % (AUTO) 12.8 % (1.0-10.0); NEUTROPHILS % (AUTO) 73.6 % (45.0-75.0); PLATELET COUNT 179 K/UL (150-450); RED BLOOD COUNT 3.11 M/UL (4.70-6.10); RED CELL DISTRIBUTION WIDTH 16.2 % (11.6-14.8); WHITE BLOOD COUNT 6.3 K/UL (4.8-10.8)
[2016-08-19 07:47] LABS: ALBUMIN/GLOBULIN RATIO 1.2 (1.0-2.7); CALCIUM 8.5 mg/dL (8.6-10.2); CREATININE 2.9 mg/dL (0.7-1.2); GLOMERULAR FILTRATION RATE 26.3 mL/min (>60); TOTAL PROTEIN 6.4 g/dL (6.6-8.7)
[2016-08-19 08:29] LABS: ANISOCYTOSIS 1+; BAND NEUTROPHILS % (MANUAL) 0 % (0-8); BASOPHILS % (MANUAL) 0 % (0-2); EOSINOPHILS % (MANUAL) 0 % (0-3); HYPOCHROMASIA 1+; LYMPHOCYTES % (MANUAL) 20 % (20-45); NEUTROPHILS % (MANUAL) 72 % (45-75); PLATELET ESTIMATE ADEQUATE; PLATELET MORPHOLOGY NORMAL; TOTAL CELLS COUNTED 100
[2016-08-19 08:40] VITALS: BP 103/73
--- NOTE | 2016-08-19 08:47 | General Progress Note ---
Assessment/Plan Assessment/Plan (1) Lumbar DDD (2) Lumbar Spondylosis (3) Lumbar Radiculopathy (4) Lumbar Herniated disc (5) Multiple Joint OA (6) B/L knee pain Pt will be continued on Morphine and we will start [place] 10/325mg PO 1 tab Q4H PRN Moderate pain. Pt was d/w Dr. Link and he concurred. Thank you for the courtesy of this consultation. Subjective Date patient seen: Aug 19, 2016 Time patient seen: 07:00 - am Allergies: Coded Allergies: HALOPERIDOL (Verified Allergy, Mild, [place] really bad, 07/05/16) Makes him irritable. THIORIDAZINE (Verified Allergy, Mild, [place] really bad, 07/05/16) Makes him violent TRAZODONE (Verified Allergy, Mild, [place] really bad, 07/05/16) Too strong; inability to move. Uncoded Allergies: PSYCHOTROPIC MEDICATION (Allergy, Mild, 08/13/14) Subjective Constitutional: Reports: weakness, Denies: chills, diaphoresis, fever, malaise , no symptoms, other HEENT: Denies: blurred vision, double vision, ear discharge, ear pain, eye pain , mouth pain, mouth swelling, no symptoms, nose congestion, nose pain, other, tearing, throat pain, throat swelling Cardiovascular: Denies: chest pain, edema, irregular heart rate, lightheadedness, no symptoms, other, palpitations, syncope Respiratory: Denies: SOB at rest, SOB with excertion, cough, no symptoms, orthopnea, other, shortness of breath, sputum, stridor, wheezing Gastrointestinal/Abdominal: Denies: abdomen distended, abdominal pain, black stools, blood in stool, constipated, diarrhea, difficulty swallowing, nausea, no symptoms, other, poor appetite, poor fluid intake, rectal bleeding, tarry stools, vomiting Genitourinary: Denies: burning, discharge, flank pain, frequency, hematuria, incontinence, no symptoms, other, pain, urgency Neurologic/Psychiatric: Reports: weakness, Denies: anxiety, depressed, emotional problems, headache, no symptoms, numbness, other, paresthesia, pre- existing deficit, seizure, tingling, tremors Endocrine: Denies: excessive sweating, flushing, increased hunger, increased thirst, increased urine, intolerance to cold, intolerance to heat, no symptoms, other, unexplained weight gain, unexplained weight loss Hematologic/Lymphatic: Denies: anemia, easy bleeding, easy bruising, no symptoms, other Subjective Patient is a known patient from prior admissions. He has continued generalized body pain due to arthritis and lower back pain. At this time he was started on Morphine 1mg IV Q4H PRN which has allowed him to tolerate his pain. Objective Last 24 Hour Vital Signs Date Time Temp Pulse Resp B/P Pulse Ox O2 Delivery O2 Flow Rate FiO2 08/19/16 04:04 98.1 86 19 128/78 98 Room Air 08/19/16 04:00 89 08/19/16 00:00 74 08/18/16 23:54 98.6 72 20 117/64 95 Room Air 08/18/16 21:47 97.5 75 20 115/53 96 Room Air 08/18/16 21:47 97.5 75 20 115/63 96 Room Air 08/18/16 21:44 97.5 75 20 143/72 96 Room Air 08/18/16 21:41 77 08/18/16 19:05 97.5 88 14 106/52 97 Room Air 08/18/16 19:00 98/48 08/18/16 17:50 85 14 Room Air 08/18/16 17:49 97.5 14 93/67 97 Room Air 08/18/16 17:39 97.5 85 14 93/67 97 Room Air Intake and Output 08/18/16 08/19/16 19:00 07:00 Intake Total 0 ml Balance 0 ml Intake Oral 0 ml # Voids 2 # Bowel Movements 1 Laboratory Tests 08/18/16 18:45: White Blood Count 12.4H, Red Blood Count 3.17L, Hemoglobin 8.9L, Hematocrit 28.1L, Mean Corpuscular Volume 89, Mean Corpuscular Hemoglobin 28.1, Mean Corpuscular Hemoglobin Concent 31.7L, Red Cell Distribution Width 16.0H, Platelet Count 197, Mean Platelet Volume 6.5, Neutrophils (%) (Auto) 79.4H, Lymphocytes (%) (Auto) 4.7L, Monocytes (%) (Auto) 14.9H, Eosinophils (%) (Auto) 0.2, Basophils (%) (Auto) 0.8, Sodium Level 135, Potassium Level 4.9, Chloride Level 100, Carbon Dioxide Level 20, Anion Gap 15, Blood Urea Nitrogen 53H, Creatinine 5.3H, Estimat Glomerular Filtration Rate 13.1, Glucose Level 115H, Uric Acid 8.1H, Calcium Level 8.4L, Total Bilirubin 0.4, Aspartate Amino Transf (AST/SGOT) 24, Alanine Aminotransferase (ALT/SGPT) 19, Alkaline Phosphatase 76, Total Creatine Kinase 260H, Total Protein 6.7, Albumin 3.6, Globulin 3.1, Albumin/Globulin Ratio 1.1 08/19/16 03:00: Stool Occult Blood [Pending] 08/19/16 05:55: White Blood Count 6.3, Red Blood Count 3.11L, Hemoglobin 8.8L, Hematocrit 27.4L , Mean Corpuscular Volume 88, Mean Corpuscular Hemoglobin 28.4, Mean Corpuscular Hemoglobin Concent 32.2, Red Cell Distribution Width 16.2H, Platelet Count 179, Mean Platelet Volume 6.7, Neutrophils (%) (Auto) 73.6, Lymphocytes (%) (Auto) 11.8L, Monocytes (%) (Auto) 12.8H, Eosinophils (%) (Auto ) 1.4, Basophils (%) (Auto) 0.4, Sodium Level 139, Potassium Level 4.0, Chloride Level 107, Carbon Dioxide Level 20, Anion Gap 12, Blood Urea Nitrogen 45H, Creatinine 2.9H, Estimat Glomerular Filtration Rate 26.3, Glucose Level 92 , Calcium Level 8.5L, Total Bilirubin 0.2, Aspartate Amino Transf (AST/SGOT) 17 , Alanine Aminotransferase (ALT/SGPT) 16, Alkaline Phosphatase 76, Total Protein 6.4L, Albumin 3.5, Globulin 2.9, Albumin/Globulin Ratio 1.2, Differential Total Cells Counted 100, Neutrophils % (Manual) 72, Lymphocytes % ( Manual) 20, Monocytes % (Manual) 8, Eosinophils % (Manual) 0, Basophils % ( Manual) 0, Band Neutrophils 0, Platelet Estimate Adequate, Platelet Morphology Normal, Hypochromasia 1+, Anisocytosis 1+, Erythrocyte Sedimentation Rate [ Pending], Reticulocyte Count [Pending], Prothrombin Time 10.0, Prothromb Time International Ratio 1.0, Activated Partial Thromboplast Time 26, Iron Level 16L , Total Iron Binding Capacity 279, Percent Iron Saturation 6L, Unsaturated Iron Binding 263, Lactate Dehydrogenase 181, Carcinoembryonic Antigen 2.8, Vitamin B12 Level 353, Folate [Pending] Height (Feet): 5 Height (Inches): 9.00 Weight (Pounds): 167 Objective General Appearance: no apparent distress, alert EENT: PERRL/EOMI, normal ENT inspection Neck: non-tender, normal alignment Cardiovascular: normal rate, regular rhythm Respiratory/Chest: decreased breath sounds Abdomen: non tender, soft Extremities: non-tender Edema: no edema noted Arm (L), no edema noted Arm (R), no edema noted Leg (L), no edema noted Leg (R), no edema noted Pedal (L), no edema noted Pedal (R), no edema noted Generalized Neurologic: alert, oriented x 3 Skin: warm/dry VICTOR M FLORES Aug 19, 2016 08:47
[2016-08-19] MEDS ORDERED: Lisinopril 10mg tab ORAL SCH (09:00)
[2016-08-19] MEDS ORDERED: Heparin 5000 units/ml inj SUBQ SCH (09:00)
[2016-08-19] MEDS: LORazepam 1mg tab ORAL PRN (09:55)
--- NOTE | 2016-08-19 09:55 | Diagnostic Imaging Report ---
Indication: Dyspnea Comparison: 07/05/16 A single view chest radiograph was obtained. Findings: Cardiomediastinal appearance is within normal limits for age. Pulmonary vascularity is appropriate. The diaphragmatic contour is smooth and costophrenic angles are sharp. No pleural effusions are identified. The bones are osteopenic. Impression: No acute findings
[2016-08-19 09:58] LABS: ERYTHROCYTE SEDIMENTATION RATE 47 MM/HR (0-20); PATH BLOOD SMEAR/OMC SENT TO PATHOLOGIST; RETICULOCYTE COUNT 0.7 % (0.0-2.0)
[2016-08-19 11:02] LABS: APPEARANCE,URINE CLEAR; KETONES,URINE NEGATIVE (NEGATIVE); LEUKOCYTE ESTERASE ,URINE 1+ (NEGATIVE); NITRITE,URINE NEGATIVE (NEGATIVE); PH,URINE 6.5 (4.5-8.0); PROTEIN,URINE 2+ (NEGATIVE); UROBILINOGEN,URINE NORMAL MG/DL (0.0-1.0)
[2016-08-19 11:24] LABS: RBC,URINE 0-2 /HPF (0 - 0)
[2016-08-19 11:25] LABS: BACTERIA,URINE FEW /HPF; SQUAMOUS EPITHELIAL CELL,UR OCCASIONAL /LPF (NONE/OCC)
[2016-08-19 12:08] VITALS: BP 120/69
--- NOTE | 2016-08-19 12:19 | Neurology Progress Note ---
Objective Physical Exam Last Vital Signs Date Time Temp Pulse Resp B/P Pulse Ox O2 Delivery O2 Flow Rate FiO2 08/19/16 12:08 97.0 68 20 120/69 98 Room Air Laboratory Tests Test 08/18/16 18:45 08/19/16 03:00 08/19/16 05:55 08/19/16 10:40 White Blood Count 12.4 K/UL (4.8-10.8) H 6.3 K/UL (4.8-10.8) Red Blood Count 3.17 M/UL (4.70-6.10) L 3.11 M/UL (4.70-6.10) L Hemoglobin 8.9 G/DL (14.2-18.0) L 8.8 G/DL (14.2-18.0) L Hematocrit 28.1 % (42.0-52.0) L 27.4 % (42.0-52.0) L Mean Corpuscular Volume 89 FL (80-99) 88 FL (80-99) Mean Corpuscular Hemoglobin 28.1 PG (27.0-31.0) 28.4 PG (27.0-31.0) Mean Corpuscular Hemoglobin Concent 31.7 G/DL (32.0-36.0) L 32.2 G/DL (32.0-36.0) Red Cell Distribution Width 16.0 % (11.6-14.8) H 16.2 % (11.6-14.8) H Platelet Count 197 K/UL (150-450) 179 K/UL (150-450) Mean Platelet Volume 6.5 FL (6.5-10.1) 6.7 FL (6.5-10.1) Neutrophils (%) (Auto) 79.4 % (45.0-75.0) H 73.6 % (45.0-75.0) Lymphocytes (%) (Auto) 4.7 % (20.0-45.0) L 11.8 % (20.0-45.0) L Monocytes (%) (Auto) 14.9 % (1.0-10.0) H 12.8 % (1.0-10.0) H Eosinophils (%) (Auto) 0.2 % (0.0-3.0) 1.4 % (0.0-3.0) Basophils (%) (Auto) 0.8 % (0.0-2.0) 0.4 % (0.0-2.0) Sodium Level 135 mEQ/L (135-145) 139 mEQ/L (135-145) Potassium Level 4.9 mEQ/L (3.4-4.9) 4.0 mEQ/L (3.4-4.9) Chloride Level 100 mEQ/L (98-107) 107 mEQ/L (98-107) Carbon Dioxide Level 20 mEQ/L (20-30) 20 mEQ/L (20-30) Anion Gap 15 (5-15) 12 (5-15) Blood Urea Nitrogen 53 mg/dL (7-23) H 45 mg/dL (7-23) H Creatinine 5.3 mg/dL (0.7-1.2) H 2.9 mg/dL (0.7-1.2) H Estimat Glomerular Filtration Rate 13.1 mL/min (>60) 26.3 mL/min (>60) Glucose Level 115 mg/dL (74-106) H 92 mg/dL (74-106) Uric Acid 8.1 mg/dL (3.0-7.5) H Calcium Level 8.4 mg/dL (8.6-10.2) L 8.5 mg/dL (8.6-10.2) L Total Bilirubin 0.4 mg/dL (0.0-1.2) 0.2 mg/dL (0.0-1.2) Aspartate Amino Transf (AST/SGOT) 24 U/L (5-40) 17 U/L (5-40) Alanine Aminotransferase (ALT/SGPT) 19 U/L (3-41) 16 U/L (3-41) Alkaline Phosphatase 76 U/L (40-129) 76 U/L (40-129) Total Creatine Kinase 260 U/L (38-174) H Total Protein 6.7 g/dL (6.6-8.7) 6.4 g/dL (6.6-8.7) L Albumin 3.6 g/dL (3.5-5.2) 3.5 g/dL (3.5-5.2) Globulin 3.1 g/dL 2.9 g/dL Albumin/Globulin Ratio 1.1 (1.0-2.7) 1.2 (1.0-2.7) Stool Occult Blood Positive (NEGATIVE) Differential Total Cells Counted 100 Neutrophils % (Manual) 72 % (45-75) Lymphocytes % (Manual) 20 % (20-45) Monocytes % (Manual) 8 % (1-10) Eosinophils % (Manual) 0 % (0-3) Basophils % (Manual) 0 % (0-2) Band Neutrophils 0 % (0-8) Platelet Estimate Adequate Platelet Morphology Normal Hypochromasia 1+ Anisocytosis 1+ Erythrocyte Sedimentation Rate 47 MM/HR (0-20) H Reticulocyte Count 0.7 % (0.0-2.0) Prothrombin Time 10.0 SEC (9.30-11.50) Prothromb Time International Ratio 1.0 (0.9-1.1) Activated Partial Thromboplast Time 26 SEC (23-33) Iron Level 16 ug/dL (59-158) L Total Iron Binding Capacity 279 ug/dL (250-400) Percent Iron Saturation 6 % (15-50) L Unsaturated Iron Binding 263 ug/dL (112-346) Lactate Dehydrogenase 181 U/L (135-230) Carcinoembryonic Antigen 2.8 ng/mL Vitamin B12 Level 353 pg/mL (211-946) Folate Pending Urine Color Pale yellow Urine Appearance Clear Urine pH 6.5 (4.5-8.0) Urine Specific [place] 1.010 (1.005-1.035) Urine Protein 2+ (NEGATIVE) H Urine Glucose (UA) Negative (NEGATIVE) Urine Ketones Negative (NEGATIVE) Urine Occult Blood 1+ (NEGATIVE) H Urine Nitrite Negative (NEGATIVE) Urine Bilirubin Negative (NEGATIVE) Urine Urobilinogen Normal MG/DL (0.0-1.0) Urine Leukocyte Esterase 1+ (NEGATIVE) H Urine RBC 0-2 /HPF (0 - 0) H Urine WBC 2-4 /HPF (0 - 0) Urine Squamous Epithelial Cells Occasional /LPF Urine Bacteria Few /HPF (NONE) Urine Eosinophils Pending Urine Random Sodium 57 mmol/L Urine Potassium Timed 16 mmol/L Impression/Recommendations Recommendations #[id number] MAMADOU MCALLISTER Aug 19, 2016 12:19
--- NOTE | 2016-08-19 15:07 | Consultation ---
History of Present Illness General Date patient seen: Aug 19, 2016 Chief Complaint: Seizure Referring physician: Dr. Isbell Reason for Consultation: inpatient management Present Illness HPI 70 year old with hx of chronic pain, COPD, seizures walk-in with cane with concern for seizures and chronic pain. He was at a clinic and BP was 70/40 so they were unable to provide additional Rx analgesia there. C/o chronic leg pain , R>L. otherwise denies chest pain, SOB, abd pain, headache, urinary complaints , fever/chills. because of episode of hypotension, he is admitted to telemetry. Allergies: Coded Allergies: HALOPERIDOL (Verified Allergy, Mild, [place] really bad, 07/05/16) Makes him irritable. THIORIDAZINE (Verified Allergy, Mild, [place] really bad, 07/05/16) Makes him violent TRAZODONE (Verified Allergy, Mild, [place] really bad, 07/05/16) Too strong; inability to move. Uncoded Allergies: PSYCHOTROPIC MEDICATION (Allergy, Mild, 08/13/14) Medication History Scheduled Alprazolam* (Xanax*), 1 TAB ORAL TWICE A DAY, (Reported) Atorvastatin Calcium* (Atorvastatin Calcium*), 20 MG ORAL BEDTIME, (Reported) Buspirone Hcl* (Buspirone Hcl*), 10 MG ORAL TWICE A DAY, (Reported) Carvedilol* (Carvedilol*), 6.25 MG ORAL EVERY 12 HOURS, (Reported) Cephalexin* (Keflex*), 500 MG ORAL QID, (Reported) Diltiazem Hcl* (Cardizem*), 30 MG PO TID, (Reported) Levetiracetam (Levetiracetam), 1,500 MG ORAL Q12HR, (Reported) Lisinopril (Lisinopril*), 10 MG ORAL DAILY, (Reported) Lisinopril* (Lisinopril*), 10 MG ORAL DAILY, (Reported) Naproxen* (Naproxen*), 500 MG ORAL TWICE A DAY, (Reported) Omeprazole (Omeprazole), 40 MG ORAL DAILY, (Reported) Pantoprazole (Pantoprazole), 40 MG ORAL DAILY, (Reported) Sucralfate* (Carafate*), 1 GM ORAL QHS, (Reported) Scheduled PRN Alprazolam* (Xanax*), 1 MG ORAL TID PRN for For Anxiety, (Reported) Hydrocodone Bit/Acetaminophen 10-325* ([place] 10-325*), 1 TAB ORAL Q4H PRN for For Pain, (Reported) Tapentadol Hcl (Nucynta), 75 MG PO Q8HR PRN for For Pain, (Reported) Patient History Healthcare decision maker Resuscitation status Full Code Advanced Directive on File Past Medical/Surgical History Past Medical/Surgical History: (1) Prostate cancer (2) Lumbar degenerative disc disease (3) Anxiety (4) posttraumatic seizure disorder Review of Systems All Other Systems: negative except mentioned in HPI Physical Exam General Appearance: cachetic Lines, tubes and drains: peripheral HEENT: normocephalic, atraumatic Neck: non-tender, normal alignment Respiratory/Chest: chest wall non-tender, lungs clear Cardiovascular/Chest: normal peripheral pulses, normal rate Abdomen: normal bowel sounds, soft Genitourinary/Rectal: normal genital exam Extremities: normal range of motion Skin Exam: normal pigmentation 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 Last 24 Hour Vital Signs Date Time Temp Pulse Resp B/P Pulse Ox O2 Delivery O2 Flow Rate FiO2 08/19/16 12:08 97.0 68 20 120/69 98 Room Air 08/19/16 12:00 80 08/19/16 09:45 103/73 08/19/16 08:40 97.0 83 20 103/73 99 Room Air 08/19/16 08:00 74 08/19/16 04:04 98.1 86 19 128/78 98 Room Air 08/19/16 04:00 89 08/19/16 00:00 74 08/18/16 23:54 98.6 72 20 117/64 95 Room Air 08/18/16 21:47 97.5 75 20 115/53 96 Room Air 08/18/16 21:47 97.5 75 20 115/63 96 Room Air 08/18/16 21:44 97.5 75 20 143/72 96 Room Air 08/18/16 21:41 77 08/18/16 19:05 97.5 88 14 106/52 97 Room Air 08/18/16 19:00 98/48 08/18/16 17:50 85 14 Room Air 08/18/16 17:49 97.5 14 93/67 97 Room Air 08/18/16 17:39 97.5 85 14 97 Room Air Intake and Output 08/18/16 08/19/16 19:00 07:00 Intake Total 0 ml Balance 0 ml Intake Oral 0 ml # Voids 2 # Bowel Movements 1 Laboratory Tests Test 08/18/16 18:45 08/19/16 03:00 08/19/16 05:55 08/19/16 10:40 White Blood Count 12.4 K/UL (4.8-10.8) H 6.3 K/UL (4.8-10.8) Red Blood Count 3.17 M/UL (4.70-6.10) L 3.11 M/UL (4.70-6.10) L Hemoglobin 8.9 G/DL (14.2-18.0) L 8.8 G/DL (14.2-18.0) L Hematocrit 28.1 % (42.0-52.0) L 27.4 % (42.0-52.0) L Mean Corpuscular Volume 89 FL (80-99) 88 FL (80-99) Mean Corpuscular Hemoglobin 28.1 PG (27.0-31.0) 28.4 PG (27.0-31.0) Mean Corpuscular Hemoglobin Concent 31.7 G/DL (32.0-36.0) L 32.2 G/DL (32.0-36.0) Red Cell Distribution Width 16.0 % (11.6-14.8) H 16.2 % (11.6-14.8) H Platelet Count 197 K/UL (150-450) 179 K/UL (150-450) Mean Platelet Volume 6.5 FL (6.5-10.1) 6.7 FL (6.5-10.1) Neutrophils (%) (Auto) 79.4 % (45.0-75.0) H 73.6 % (45.0-75.0) Lymphocytes (%) (Auto) 4.7 % (20.0-45.0) L 11.8 % (20.0-45.0) L Monocytes (%) (Auto) 14.9 % (1.0-10.0) H 12.8 % (1.0-10.0) H Eosinophils (%) (Auto) 0.2 % (0.0-3.0) 1.4 % (0.0-3.0) Basophils (%) (Auto) 0.8 % (0.0-2.0) 0.4 % (0.0-2.0) Sodium Level 135 mEQ/L (135-145) 139 mEQ/L (135-145) Potassium Level 4.9 mEQ/L (3.4-4.9) 4.0 mEQ/L (3.4-4.9) Chloride Level 100 mEQ/L (98-107) 107 mEQ/L (98-107) Carbon Dioxide Level 20 mEQ/L (20-30) 20 mEQ/L (20-30) Anion Gap 15 (5-15) 12 (5-15) Blood Urea Nitrogen 53 mg/dL (7-23) H 45 mg/dL (7-23) H Creatinine 5.3 mg/dL (0.7-1.2) H 2.9 mg/dL (0.7-1.2) H Estimat Glomerular Filtration Rate 13.1 mL/min (>60) 26.3 mL/min (>60) Glucose Level 115 mg/dL (74-106) H 92 mg/dL (74-106) Uric Acid 8.1 mg/dL (3.0-7.5) H Calcium Level 8.4 mg/dL (8.6-10.2) L 8.5 mg/dL (8.6-10.2) L Total Bilirubin 0.4 mg/dL (0.0-1.2) 0.2 mg/dL (0.0-1.2) Aspartate Amino Transf (AST/SGOT) 24 U/L (5-40) 17 U/L (5-40) Alanine Aminotransferase (ALT/SGPT) 19 U/L (3-41) 16 U/L (3-41) Alkaline Phosphatase 76 U/L (40-129) 76 U/L (40-129) Total Creatine Kinase 260 U/L (38-174) H Total Protein 6.7 g/dL (6.6-8.7) 6.4 g/dL (6.6-8.7) L Albumin 3.6 g/dL (3.5-5.2) 3.5 g/dL (3.5-5.2) Globulin 3.1 g/dL 2.9 g/dL Albumin/Globulin Ratio 1.1 (1.0-2.7) 1.2 (1.0-2.7) Stool Occult Blood Positive (NEGATIVE) Differential Total Cells Counted 100 Neutrophils % (Manual) 72 % (45-75) Lymphocytes % (Manual) 20 % (20-45) Monocytes % (Manual) 8 % (1-10) Eosinophils % (Manual) 0 % (0-3) Basophils % (Manual) 0 % (0-2) Band Neutrophils 0 % (0-8) Platelet Estimate Adequate Platelet Morphology Normal Hypochromasia 1+ Anisocytosis 1+ Erythrocyte Sedimentation Rate 47 MM/HR (0-20) H Reticulocyte Count 0.7 % (0.0-2.0) Prothrombin Time 10.0 SEC (9.30-11.50) Prothromb Time International Ratio 1.0 (0.9-1.1) Activated Partial Thromboplast Time 26 SEC (23-33) Iron Level 16 ug/dL (59-158) L Total Iron Binding Capacity 279 ug/dL (250-400) Percent Iron Saturation 6 % (15-50) L Unsaturated Iron Binding 263 ug/dL (112-346) Lactate Dehydrogenase 181 U/L (135-230) Carcinoembryonic Antigen 2.8 ng/mL Vitamin B12 Level 353 pg/mL (211-946) Folate Pending Urine Color Pale yellow Urine Appearance Clear Urine pH 6.5 (4.5-8.0) Urine Specific [place] 1.010 (1.005-1.035) Urine Protein 2+ (NEGATIVE) H Urine Glucose (UA) Negative (NEGATIVE) Urine Ketones Negative (NEGATIVE) Urine Occult Blood 1+ (NEGATIVE) H Urine Nitrite Negative (NEGATIVE) Urine Bilirubin Negative (NEGATIVE) Urine Urobilinogen Normal MG/DL (0.0-1.0) Urine Leukocyte Esterase 1+ (NEGATIVE) H Urine RBC 0-2 /HPF (0 - 0) H Urine WBC 2-4 /HPF (0 - 0) Urine Squamous Epithelial Cells Occasional /LPF Urine Bacteria Few /HPF (NONE) Urine Eosinophils None seen Urine Random Sodium 57 mmol/L Urine Potassium Timed 16 mmol/L Height (Feet): 5 Height (Inches): 9.00 Weight (Pounds): 167 Medications Current Medications Medications (Trade) Dose Ordered Sig/Jesi Route PRN Reason Start Time Stop Time Status Last Admin Dose Admin Acetaminophen (Tylenol) 650 mg Q4H PRN ORAL fever 08/18/16 22:30 09/17/16 22:29 Al Hydroxide/Mg Hydroxide (Mylanta II) 30 ml Q6H PRN ORAL dyspepsia 08/18/16 22:30 09/17/16 22:29 Dextrose (Dextrose 50%) STAT PRN IV Hypoglycemia 08/18/16 21:45 09/17/16 21:44 Heparin Sodium (Porcine) (Heparin 5000 units/ml) 5,000 units EVERY 12 HOURS SUBQ 08/19/16 09:00 09/18/16 08:59 08/19/16 09:44 Levetiracetam (Keppra) 1,500 mg Q12HR ORAL 08/18/16 23:00 09/17/16 22:59 08/19/16 09:45 Levetiracetam (Keppra) 1,500 mg STAT ORAL 08/18/16 19:30 09/17/16 19:29 Lisinopril (Zestril) 10 mg DAILY ORAL 08/19/16 09:00 09/18/16 08:59 08/19/16 09:45 Lorazepam (Ativan 2mg/ml 1ml) 2 mg Q1H PRN IV seizures 08/18/16 22:30 08/25/16 22:29 Lorazepam (Ativan) 1 mg Q6H PRN ORAL For Anxiety 08/18/16 23:30 08/25/16 23:29 08/19/16 09:55 Morphine Sulfate (Morphine Sulfate) 1 mg Q4H PRN IVP For Pain 08/18/16 22:30 08/25/16 22:29 08/19/16 10:00 Ondansetron HCl (Zofran) 4 mg Q6H PRN IVP Nausea & Vomiting 08/18/16 22:30 09/17/16 22:29 Polyethylene Glycol (Miralax) 17 gm HSPRN PRN ORAL Constipation 08/18/16 22:30 09/17/16 22:29 Zolpidem Tartrate (Ambien) 5 mg HSPRN PRN ORAL Insomnia 08/18/16 22:30 09/17/16 22:29 Assessment/Plan Problem List: (1) Hypotension ICD Codes: I95.9 - Hypotension, unspecified SNOMED: 65160973, [id number] Qualifiers: Qualified Codes: I95.9 - Hypotension, unspecified (2) GERSON (acute kidney injury) ICD Codes: N17.9 - Acute kidney failure, unspecified SNOMED: 70042141, 383027316 (3) Anemia ICD Codes: D64.9 - Anemia, unspecified SNOMED: 051675195 (4) Prostate cancer ICD Codes: C61 - Prostate cancer SNOMED: 701343083 (5) Chronic low back pain ICD Codes: G89.29 - Other chronic pain; M54.5 - Chronic low back pain SNOMED: 357850043 (6) Seizure disorder ICD Codes: G40.909 - Epilepsy, unspecified, not intractable, without status epilepticus SNOMED: 852865355 Assessment/Plan iv fluids renal w/u check electrolytes pain management dvt prophylaxis LAQUITA VAZQUEZ Aug 19, 2016 15:07
[2016-08-19 16:33] VITALS: BP 99/70
--- NOTE | 2016-08-19 16:38 | Infectious Diseases Prog Note ---
Assessment/Plan Problems: (1) Sepsis Assessment & Plan: with leukocytosis and hypotension, will send blood culture and monitor WBC, no evidence of pneumonia or UTI so will hold off antibiotics for now (2) GERSON (acute kidney injury) Assessment & Plan: due to hypotension and dehydration, continue IVF for hydration, consult renal (3) Prostate cancer, primary, 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 site Assessment & Plan: recommend oncology consult and brain images to rule out mets (4) exacerbation of seizure d/o 2/2 noncompliance Assessment & Plan: continue neuro check , monitor drug level, consult neurology . (5) Hypotension Assessment & Plan: rule out sepsis, send blood culture, monitor vitals, continue hydration (6) Chronic low back pain Assessment & Plan: continue pain management as per primary Subjective Allergies: Coded Allergies: HALOPERIDOL (Verified Allergy, Mild, [place] really bad, 07/05/16) Makes him irritable. THIORIDAZINE (Verified Allergy, Mild, [place] really bad, 07/05/16) Makes him violent TRAZODONE (Verified Allergy, Mild, [place] really bad, 07/05/16) Too strong; inability to move. Uncoded Allergies: PSYCHOTROPIC MEDICATION (Allergy, Mild, 08/13/14) Objective Vital Signs Last 24 Hour Vital Signs Date Time Temp Pulse Resp B/P Pulse Ox O2 Delivery O2 Flow Rate FiO2 08/19/16 12:08 97.0 68 20 120/69 98 Room Air 08/19/16 12:00 80 08/19/16 09:45 103/73 08/19/16 08:40 97.0 83 20 103/73 99 Room Air 08/19/16 08:00 74 08/19/16 04:04 98.1 86 19 128/78 98 Room Air 08/19/16 04:00 89 08/19/16 00:00 74 08/18/16 23:54 98.6 72 20 117/64 95 Room Air 08/18/16 21:47 97.5 75 20 115/53 96 Room Air 08/18/16 21:47 97.5 75 20 115/63 96 Room Air 08/18/16 21:44 97.5 75 20 143/72 96 Room Air 08/18/16 21:41 77 08/18/16 19:05 97.5 88 14 106/52 97 Room Air 08/18/16 19:00 98/48 08/18/16 17:50 85 14 Room Air 08/18/16 17:49 97.5 14 97 Room Air 08/18/16 17:39 97.5 85 14 97 Room Air Height (Feet): 5 Height (Inches): 9.00 Weight (Pounds): 167 Laboratory Tests Test 08/18/16 18:45 08/19/16 03:00 08/19/16 05:55 08/19/16 10:40 White Blood Count 12.4 K/UL (4.8-10.8) H 6.3 K/UL (4.8-10.8) Red Blood Count 3.17 M/UL (4.70-6.10) L 3.11 M/UL (4.70-6.10) L Hemoglobin 8.9 G/DL (14.2-18.0) L 8.8 G/DL (14.2-18.0) L Hematocrit 28.1 % (42.0-52.0) L 27.4 % (42.0-52.0) L Mean Corpuscular Volume 89 FL (80-99) 88 FL (80-99) Mean Corpuscular Hemoglobin 28.1 PG (27.0-31.0) 28.4 PG (27.0-31.0) Mean Corpuscular Hemoglobin Concent 31.7 G/DL (32.0-36.0) L 32.2 G/DL (32.0-36.0) Red Cell Distribution Width 16.0 % (11.6-14.8) H 16.2 % (11.6-14.8) H Platelet Count 197 K/UL (150-450) 179 K/UL (150-450) Mean Platelet Volume 6.5 FL (6.5-10.1) 6.7 FL (6.5-10.1) Neutrophils (%) (Auto) 79.4 % (45.0-75.0) H 73.6 % (45.0-75.0) Lymphocytes (%) (Auto) 4.7 % (20.0-45.0) L 11.8 % (20.0-45.0) L Monocytes (%) (Auto) 14.9 % (1.0-10.0) H 12.8 % (1.0-10.0) H Eosinophils (%) (Auto) 0.2 % (0.0-3.0) 1.4 % (0.0-3.0) Basophils (%) (Auto) 0.8 % (0.0-2.0) 0.4 % (0.0-2.0) Sodium Level 135 mEQ/L (135-145) 139 mEQ/L (135-145) Potassium Level 4.9 mEQ/L (3.4-4.9) 4.0 mEQ/L (3.4-4.9) Chloride Level 100 mEQ/L (98-107) 107 mEQ/L (98-107) Carbon Dioxide Level 20 mEQ/L (20-30) 20 mEQ/L (20-30) Anion Gap 15 (5-15) 12 (5-15) Blood Urea Nitrogen 53 mg/dL (7-23) H 45 mg/dL (7-23) H Creatinine 5.3 mg/dL (0.7-1.2) H 2.9 mg/dL (0.7-1.2) H Estimat Glomerular Filtration Rate 13.1 mL/min (>60) 26.3 mL/min (>60) Glucose Level 115 mg/dL (74-106) H 92 mg/dL (74-106) Uric Acid 8.1 mg/dL (3.0-7.5) H Calcium Level 8.4 mg/dL (8.6-10.2) L 8.5 mg/dL (8.6-10.2) L Total Bilirubin 0.4 mg/dL (0.0-1.2) 0.2 mg/dL (0.0-1.2) Aspartate Amino Transf (AST/SGOT) 24 U/L (5-40) 17 U/L (5-40) Alanine Aminotransferase (ALT/SGPT) 19 U/L (3-41) 16 U/L (3-41) Alkaline Phosphatase 76 U/L (40-129) 76 U/L (40-129) Total Creatine Kinase 260 U/L (38-174) H Total Protein 6.7 g/dL (6.6-8.7) 6.4 g/dL (6.6-8.7) L Albumin 3.6 g/dL (3.5-5.2) 3.5 g/dL (3.5-5.2) Globulin 3.1 g/dL 2.9 g/dL Albumin/Globulin Ratio 1.1 (1.0-2.7) 1.2 (1.0-2.7) Stool Occult Blood Positive (NEGATIVE) Differential Total Cells Counted 100 Neutrophils % (Manual) 72 % (45-75) Lymphocytes % (Manual) 20 % (20-45) Monocytes % (Manual) 8 % (1-10) Eosinophils % (Manual) 0 % (0-3) Basophils % (Manual) 0 % (0-2) Band Neutrophils 0 % (0-8) Platelet Estimate Adequate Platelet Morphology Normal Hypochromasia 1+ Anisocytosis 1+ Erythrocyte Sedimentation Rate 47 MM/HR (0-20) H Reticulocyte Count 0.7 % (0.0-2.0) Prothrombin Time 10.0 SEC (9.30-11.50) Prothromb Time International Ratio 1.0 (0.9-1.1) Activated Partial Thromboplast Time 26 SEC (23-33) Iron Level 16 ug/dL (59-158) L Total Iron Binding Capacity 279 ug/dL (250-400) Percent Iron Saturation 6 % (15-50) L Unsaturated Iron Binding 263 ug/dL (112-346) Lactate Dehydrogenase 181 U/L (135-230) Carcinoembryonic Antigen 2.8 ng/mL Vitamin B12 Level 353 pg/mL (211-946) Folate Pending Urine Color Pale yellow Urine Appearance Clear Urine pH 6.5 (4.5-8.0) Urine Specific [place] 1.010 (1.005-1.035) Urine Protein 2+ (NEGATIVE) H Urine Glucose (UA) Negative (NEGATIVE) Urine Ketones Negative (NEGATIVE) Urine Occult Blood 1+ (NEGATIVE) H Urine Nitrite Negative (NEGATIVE) Urine Bilirubin Negative (NEGATIVE) Urine Urobilinogen Normal MG/DL (0.0-1.0) Urine Leukocyte Esterase 1+ (NEGATIVE) H Urine RBC 0-2 /HPF (0 - 0) H Urine WBC 2-4 /HPF (0 - 0) Urine Squamous Epithelial Cells Occasional /LPF Urine Bacteria Few /HPF (NONE) Urine Eosinophils None seen Urine Random Sodium 57 mmol/L Urine Potassium Timed 16 mmol/L Current Medications Medications (Trade) Dose Ordered Sig/Jesi Route PRN Reason Start Time Stop Time Status Last Admin Dose Admin Acetaminophen (Tylenol) 650 mg Q4H PRN ORAL fever 08/18/16 22:30 09/17/16 22:29 Al Hydroxide/Mg Hydroxide (Mylanta II) 30 ml Q6H PRN ORAL dyspepsia 08/18/16 22:30 09/17/16 22:29 Dextrose (Dextrose 50%) STAT PRN IV Hypoglycemia 08/18/16 21:45 09/17/16 21:44 Heparin Sodium (Porcine) (Heparin 5000 units/ml) 5,000 units EVERY 12 HOURS SUBQ 08/19/16 09:00 09/18/16 08:59 08/19/16 09:44 Levetiracetam (Keppra) 1,500 mg Q12HR ORAL 08/18/16 23:00 09/17/16 22:59 08/19/16 09:45 Levetiracetam (Keppra) 1,500 mg STAT ORAL 08/18/16 19:30 09/17/16 19:29 Lisinopril (Zestril) 10 mg DAILY ORAL 08/19/16 09:00 09/18/16 08:59 08/19/16 09:45 Lorazepam (Ativan 2mg/ml 1ml) 2 mg Q1H PRN IV seizures 08/18/16 22:30 08/25/16 22:29 Lorazepam (Ativan) 1 mg Q6H PRN ORAL For Anxiety 08/18/16 23:30 08/25/16 23:29 08/19/16 09:55 Morphine Sulfate (Morphine Sulfate) 1 mg Q4H PRN IVP For Pain 08/18/16 22:30 08/25/16 22:29 08/19/16 10:00 Ondansetron HCl (Zofran) 4 mg Q6H PRN IVP Nausea & Vomiting 08/18/16 22:30 09/17/16 22:29 Polyethylene Glycol (Miralax) 17 gm HSPRN PRN ORAL Constipation 08/18/16 22:30 09/17/16 22:29 Zolpidem Tartrate (Ambien) 5 mg HSPRN PRN ORAL Insomnia 08/18/16 22:30 09/17/16 22:29 Lizzy Rothman M.D. Aug 19, 2016 16:38
--- NOTE | 2016-08-19 18:05 | Cardiology Progress Note ---
Assessment/Plan Assessment/Plan hypotesnion ? voluem related tachy narro complex resolved anemia arf black stool iron def ivf ekg echo telel [id number] Objective Last 24 Hour Vital Signs Date Time Temp Pulse Resp B/P Pulse Ox O2 Delivery O2 Flow Rate FiO2 08/19/16 16:33 97.0 86 20 99/70 98 Room Air 08/19/16 16:00 82 08/19/16 12:08 97.0 68 20 120/69 98 Room Air 08/19/16 12:00 80 08/19/16 09:45 103/73 08/19/16 08:40 97.0 83 20 103/73 99 Room Air 08/19/16 08:00 74 08/19/16 04:04 98.1 86 19 128/78 98 Room Air 08/19/16 04:00 89 08/19/16 00:00 74 08/18/16 23:54 98.6 72 20 117/64 95 Room Air 08/18/16 21:47 97.5 75 20 115/53 96 Room Air 08/18/16 21:47 97.5 75 20 115/63 96 Room Air 08/18/16 21:44 97.5 75 20 143/72 96 Room Air 08/18/16 21:41 77 08/18/16 19:05 97.5 88 14 106/52 97 Room Air 08/18/16 19:00 98/48 Intake and Output 08/18/16 08/19/16 19:00 07:00 Intake Total 0 ml Balance 0 ml Intake Oral 0 ml # Voids 2 # Bowel Movements 1 Laboratory Tests Test 08/18/16 18:45 08/19/16 03:00 08/19/16 05:55 08/19/16 10:40 White Blood Count 12.4 K/UL (4.8-10.8) H 6.3 K/UL (4.8-10.8) Red Blood Count 3.17 M/UL (4.70-6.10) L 3.11 M/UL (4.70-6.10) L Hemoglobin 8.9 G/DL (14.2-18.0) L 8.8 G/DL (14.2-18.0) L Hematocrit 28.1 % (42.0-52.0) L 27.4 % (42.0-52.0) L Mean Corpuscular Volume 89 FL (80-99) 88 FL (80-99) Mean Corpuscular Hemoglobin 28.1 PG (27.0-31.0) 28.4 PG (27.0-31.0) Mean Corpuscular Hemoglobin Concent 31.7 G/DL (32.0-36.0) L 32.2 G/DL (32.0-36.0) Red Cell Distribution Width 16.0 % (11.6-14.8) H 16.2 % (11.6-14.8) H Platelet Count 197 K/UL (150-450) 179 K/UL (150-450) Mean Platelet Volume 6.5 FL (6.5-10.1) 6.7 FL (6.5-10.1) Neutrophils (%) (Auto) 79.4 % (45.0-75.0) H 73.6 % (45.0-75.0) Lymphocytes (%) (Auto) 4.7 % (20.0-45.0) L 11.8 % (20.0-45.0) L Monocytes (%) (Auto) 14.9 % (1.0-10.0) H 12.8 % (1.0-10.0) H Eosinophils (%) (Auto) 0.2 % (0.0-3.0) 1.4 % (0.0-3.0) Basophils (%) (Auto) 0.8 % (0.0-2.0) 0.4 % (0.0-2.0) Sodium Level 135 mEQ/L (135-145) 139 mEQ/L (135-145) Potassium Level 4.9 mEQ/L (3.4-4.9) 4.0 mEQ/L (3.4-4.9) Chloride Level 100 mEQ/L (98-107) 107 mEQ/L (98-107) Carbon Dioxide Level 20 mEQ/L (20-30) 20 mEQ/L (20-30) Anion Gap 15 (5-15) 12 (5-15) Blood Urea Nitrogen 53 mg/dL (7-23) H 45 mg/dL (7-23) H Creatinine 5.3 mg/dL (0.7-1.2) H 2.9 mg/dL (0.7-1.2) H Estimat Glomerular Filtration Rate 13.1 mL/min (>60) 26.3 mL/min (>60) Glucose Level 115 mg/dL (74-106) H 92 mg/dL (74-106) Uric Acid 8.1 mg/dL (3.0-7.5) H Calcium Level 8.4 mg/dL (8.6-10.2) L 8.5 mg/dL (8.6-10.2) L Total Bilirubin 0.4 mg/dL (0.0-1.2) 0.2 mg/dL (0.0-1.2) Aspartate Amino Transf (AST/SGOT) 24 U/L (5-40) 17 U/L (5-40) Alanine Aminotransferase (ALT/SGPT) 19 U/L (3-41) 16 U/L (3-41) Alkaline Phosphatase 76 U/L (40-129) 76 U/L (40-129) Total Creatine Kinase 260 U/L (38-174) H Total Protein 6.7 g/dL (6.6-8.7) 6.4 g/dL (6.6-8.7) L Albumin 3.6 g/dL (3.5-5.2) 3.5 g/dL (3.5-5.2) Globulin 3.1 g/dL 2.9 g/dL Albumin/Globulin Ratio 1.1 (1.0-2.7) 1.2 (1.0-2.7) Stool Occult Blood Positive (NEGATIVE) Differential Total Cells Counted 100 Neutrophils % (Manual) 72 % (45-75) Lymphocytes % (Manual) 20 % (20-45) Monocytes % (Manual) 8 % (1-10) Eosinophils % (Manual) 0 % (0-3) Basophils % (Manual) 0 % (0-2) Band Neutrophils 0 % (0-8) Platelet Estimate Adequate Platelet Morphology Normal Hypochromasia 1+ Anisocytosis 1+ Erythrocyte Sedimentation Rate 47 MM/HR (0-20) H Reticulocyte Count 0.7 % (0.0-2.0) Prothrombin Time 10.0 SEC (9.30-11.50) Prothromb Time International Ratio 1.0 (0.9-1.1) Activated Partial Thromboplast Time 26 SEC (23-33) Iron Level 16 ug/dL (59-158) L Total Iron Binding Capacity 279 ug/dL (250-400) Percent Iron Saturation 6 % (15-50) L Unsaturated Iron Binding 263 ug/dL (112-346) Lactate Dehydrogenase 181 U/L (135-230) Carcinoembryonic Antigen 2.8 ng/mL Vitamin B12 Level 353 pg/mL (211-946) Folate Pending Urine Color Pale yellow Urine Appearance Clear Urine pH 6.5 (4.5-8.0) Urine Specific [place] 1.010 (1.005-1.035) Urine Protein 2+ (NEGATIVE) H Urine Glucose (UA) Negative (NEGATIVE) Urine Ketones Negative (NEGATIVE) Urine Occult Blood 1+ (NEGATIVE) H Urine Nitrite Negative (NEGATIVE) Urine Bilirubin Negative (NEGATIVE) Urine Urobilinogen Normal MG/DL (0.0-1.0) Urine Leukocyte Esterase 1+ (NEGATIVE) H Urine RBC 0-2 /HPF (0 - 0) H Urine WBC 2-4 /HPF (0 - 0) Urine Squamous Epithelial Cells Occasional /LPF Urine Bacteria Few /HPF (NONE) Urine Eosinophils None seen Urine Random Sodium 57 mmol/L Urine Potassium Timed 16 mmol/L PAN PERDOMO Aug 19, 2016 18:05
[2016-08-19 20:00] VITALS: BP 123/71
[2016-08-19 21:00] VITALS: BP 134/71
[2016-08-19] MEDS ORDERED: LORazepam Inj 2mg/ml 1ml IV PRN (21:06)
[2016-08-19] MEDS ORDERED: Zolpidem 5mg tab ORAL PRN (21:07)
[2016-08-19] MEDS ORDERED: Miralax 17gm pkt ORAL PRN (21:07)
[2016-08-19] MEDS: Heparin 5000 units/ml inj SUBQ SCH (21:48)
--- NOTE | 2016-08-19 23:30 | Consultation ---
DATE OF CONSULTATION: 08/19/2016 NEUROLOGICAL CONSULTATION CONSULTING PHYSICIAN: Selvin Alonso M.D. REQUESTING PHYSICIAN: Bobby Isbell D.O. HISTORY OF PRESENT ILLNESS: This is a 70-year-old man seen in neurological consultation to evaluate the exacerbation of seizure disorder. Now, the patient has a chronic seizure disorder, presumably posttraumatic with a good control of seizures when he was on Keppra 1000 mg daily and since last few months Keppra 1500 mg b.i.d. The patient stated that he ran out of medication that caused this seizures. On arrival to the emergency room, he walked in with a cane expressing concern of having seizures and chronic pain. The patient apparently had hypotension with a blood pressure of 72/40, recommended to undergo reassessment in the emergency department. The patient made several request for having narcotics due to chronic pain. His vital signs on admission included blood pressure 93/67 and temperature 97.5. His imaging studies included a chest x-ray revealing no acute changes. Lab work was obtained with CBC study WBC 12.4, hemoglobin 8.9, hematocrit 28.1, sedimentation rate of 47. Normal coagulation panel. Urinalysis 1 to 2+ protein. Chemistry panel included an elevated BUN of 53, creatinine 5.3 and blood sugar 118 with uric acid elevated at 8.1. Calcium is 8.4. CPK is 260. Repeat study revealed some improvement with BUN down to 45 and creatinine 2.9. Since admission till present, there was no further paroxysmal event. PAST MEDICAL HISTORY: The patient has a history of chronic low back pain related of multiple joint arthritis, lumbar diskogenic disease, and other neuropathies. The patient is opiate dependent. History of hypertension, prostate CA with bone metastasis, and history of anxiety disorder. MEDICATIONS: Treatment prior to admission included Keppra 1500 mg b.i.d., Xanax 1 mg t.i.d. p.r.n. and 1 mg b.i.d. daily, atorvastatin, BuSpar 10 mg b.i.d., carvedilol, diltiazem, lisinopril, Naprosyn, omeprazole, pantoprazole, sucralfate, and Nucynta. ALLERGIES: Haldol, , and trazodone. SOCIAL HISTORY: Denies illicit drug abuse. FAMILY HISTORY: Noncontributory. REVIEW OF SYMPTOMS: Aches and pains in his lower extremities, having seizure activity recurring once in couple of weeks predominantly when running out of medicine. Denies headache or dizziness. No chest pain or palpitations. No respiratory problems. PHYSICAL EXAMINATION: GENERAL: The patient is a well-developed, well-nourished man, found to be asleep but arousable. VITAL SIGNS: Blood pressure 98/62 and respirations 18. HEENT: Head, normocephalic. No evidence of trauma. Eyes, ears, and throat are clear. NECK: Rigid in all directions. MUSCULOSKELETAL EXAMINATION: Arthritic changes in both knees. Peripheral pulses 1+ symmetric. MENTAL STATUS: Oriented x3 with no evidence of aphasia or apraxia. He is forgetful, emotional, labile, but follows command. No perceptional thought abnormalities noted. CRANIAL NERVE II: Pupils 2 mm responding to light and accommodation. Extraocular movement intact. Visual dodd are full to confrontation. Fundi benign. CRANIAL NERVE V: Normal corneal responses. CRANIAL NERVE VII: Minor facial asymmetry. CRANIAL NERVE VIII: Normal hearing. No positional vertigo. CRANIAL NERVE IX THROUGH XII: Normal palate elevation. Tongue is in midline. Normal sternocleidomastoids bilaterally. MOTOR EXAMINATION: Able to lift arms and legs against the gravity. Strength is 5/5. Deep tendon reflexes symmetric 1+ with no pathological responses. SENSORY EXAMINATION: Withdrawing to pin upper and lower extremities. Gait is stable, but with a limp to the left using cane. IMPRESSION: 1. History of posttraumatic chronic seizure disorder, exacerbating due to noncompliance. 2. Chronic pain syndrome, opiate and benzodiazepine dependence. 3. Chronic psychiatric disorder. 4. . 5. Prostate cancer, metastatic. 6. 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 RECOMMENDATION: 1. The patient will be seen by pain management to adjust opiates. 2. Recommend to be seen by psychiatrist to adjust large doses of benzodiazepines and initiate antidepressants. 3. Maintain Keppra 1500 mg b.i.d. 4. The patient has presented with a renal insufficiency. This will be addressed by attending physician. Thank you for allowing me to see this interesting patient in neurological consultation. Selvin Alonos M.D. DR: ANGELICA JOB#: [id number] CC:
[2016-08-20] VITALS: BP 136/68
--- NOTE | 2016-08-20 00:30 | History and Physical Report ---
DATE OF ADMISSION: 08/18/2016 TIME: 2 p.m. CONSULTANTS: 1. Logan Landrum M.D. 2. Maria E Sihne M.D. 3. Isaiah Link M.D. 4. Nilson Lau M.D. 5. Selvin Alonso M.D. 6. Jj Gill M.D. BRIEF HISTORY: This is a 70-year-old male presents to [facility] with history of low blood pressure, seizure, and intractable pain, was admitted for the above, admitted to the telemetry for further care, currently slightly anxious in bed, complaining of general pain, 08/22. PAST MEDICAL HISTORY: Seizure, chronic pain, renal insufficiency, anemia. PAST SURGICAL HISTORY: None. MEDICATIONS: Zestril, Ativan, Keppra, Mylanta, Ambien, Zofran, MiraLAX, morphine, . ALLERGIES: Denies. SOCIAL HISTORY: Positive smoking. Positive alcohol. No intravenous drug abuse. FAMILY HISTORY: Noncontributory. REVIEW OF SYSTEMS: No chest pain/shortness of breath. No nausea, vomiting or diarrhea. PHYSICAL EXAMINATION: GENERAL: Anxious in bed, oriented x3, in no acute distress. VITAL SIGNS: Temperature is 97 degrees, pulse 68, respiratory rate 20, and now blood pressure up to 120/69. CARDIOVASCULAR: No murmur. LUNGS: Distant and clear. ABDOMEN: Bowel sounds positive. Nontender and nondistended. EXTREMITIES: No cyanosis, clubbing, or edema. NEUROLOGIC: The patient moves all extremities, but slightly weak. LABORATORY AND DIAGNOSTIC DATA: White count show yesterday 12, hemoglobin and hematocrit 8 and 27, platelets 179,000. BMP show BUN and creatinine 45 and 2.9 otherwise BMP is normal. INR 1.0. Urinalysis 1+ leukocyte esterase. ASSESSMENT: 1. Weakness. 2. Urinary tract infection. 3. Sepsis. 4. Seizure. 5. Anemia. 6. History of shock. 7. Chronic pain. 8. Renal failure. PLAN: 1. Continue premeds. 2. Antibiotics per Infectious Disease. 3. Blood pressure and seizure control. 4. Dietary followup. 5. Pain control. 6. OT/PT. 7. Dietary evaluation. 8. CBC and BMP in the morning. Bobby Isbell D.O. DR: Christiane JOB#: [id number] CC:
--- NOTE | 2016-08-20 01:45 | Consultation ---
DATE OF CONSULTATION: 08/19/2016 INFECTIOUS DISEASE CONSULTATION CONSULTING PHYSICIAN: Lizzy Rothman M.D. REFERRING PHYSICIAN: Bobby Isbell D.O. REASON FOR CONSULTATION: Possible sepsis with leukocytosis, recommendation for antibiotics treatment. HISTORY OF PRESENT ILLNESS: The patient is a 70-year-old male with past medical history of seizure disorder, noncompliant with his medication, was recently admitted at [facility] august 08 for seizure breakthrough, now presented to [facility] for concern about a breakthrough seizure. The patient was started on Keppra at [facility] and he was admitted that he has been taking it on a regular basis, but he also takes pain medication for chronic pain management and he was found to be hypotensive at the clinic with blood pressure around 70/40. So, he was sent to [facility] emergency room for further evaluation and management of his hypotension. The patient has been on narcotics for long time and he had several requests for treatment and refill. Denied any loss of consciousness or head trauma. Denied any fall. No numbness. Denied any fever or chills. No cough or shortness of breath. No nausea or vomiting. No diarrhea. No dysuria or hematuria. REVIEW OF SYSTEMS: Fourteen points of systems reviewed were all negative apart from the one I mentioned above in my HPI. PAST MEDICAL HISTORY: Significant for coronary artery disease, hypertension, prostate cancer with mets, GERD, and seizure disorder. PAST SURGICAL HISTORY: Negative. FAMILY HISTORY: Noncontributory. ALLERGIES: He is allergic to haloperidol, thioridazine, and trazodone. MEDICATIONS: The patient received levofloxacin in the emergency room. For the rest of his medications, please refer to MAR. LABORATORY DATA: Labs showed white count of 6.3, hemoglobin of 8.8, and platelet count of 179,000. BUN of 45 and creatinine of 2.9. Urinalysis showed leukocyte esterase of +1, and WBC of 2 to 4. IMAGING: Chest x-ray showed no acute infiltration. PHYSICAL EXAMINATION: VITAL SIGNS: Temperature 97, pulse 68, respirations 20, blood pressure 120/69, and saturation 98% on room air. GENERAL: A middle-aged male, comfortable, lying in bed, alert, not in distress. HEENT: Normocephalic and atraumatic. Pupils are reactive to light. Moist oral mucosa. No exudate. NECK: Supple. No lymphadenopathy. CARDIOVASCULAR: Regular rate and rhythm. No murmur or gallop. LUNGS: Clear bilaterally. No wheezing or rhonchi. ABDOMEN: Soft, nontender, and nondistended. Positive bowel sounds. No hepatosplenomegaly or ascites. EXTREMITIES: No edema or cyanosis. SKIN: No rash or hives. NEUROLOGIC: Nonfocal with no sensory changes. ASSESSMENT AND RECOMMENDATIONS: 1. Possible sepsis with leukocytosis and hypotension. We will send blood culture and monitor WBC. The patient had no evidence of pneumonia or urinary tract infection at this point, and his blood pressure improved with hydration. So, we will hold off antibiotics for now pending blood culture results. 2. Acute kidney failure due to hypotension and dehydration. Continue IV fluid for hydration. Monitor urine output. Consult Renal. Monitor kidney function. 3. Prostate cancer with metastases. Recommend Oncology consult and brain image to rule out metastasis. 4. Exacerbation of seizure disorder due to noncompliance. Continue Keppra and neuro check. Monitor drug level. Consult Neurology. 5. Hypotension. Rule out sepsis. We will send blood culture. Continue hydration. Monitor vitals. 6. Chronic low back pain. Continue pain management as per primary. Lizzy Rothman M.D. DR: REYNA JOB#: [id number] CC: GEOFF
[2016-08-20 04:00] VITALS: BP 125/70
--- NOTE | 2016-08-20 04:00 | Consultation ---
DATE OF CONSULTATION: 08/19/2016 CARDIOLOGY CONSULTATION CONSULTING PHYSICIAN: Logan Landrum M.D. REFERRING PHYSICIAN: Bobby Isbell D.O. REASON FOR REFERRAL: Labile blood pressure and renal failure. HISTORY OF PRESENT ILLNESS: This is a middle-aged gentleman, who has history of multiple medical problems. The patient presents to the hospital because of seizure and chronic pain. Apparently, he had seizure back in probably 08/08/2016. He said he is compliant with Keppra. Anyway, he went to Dr. Isbell's office and noted to have a blood pressure of 70/40 and the patient was sent to the emergency room to [facility] and was admitted. At this time, the patient is on fluids . He denies any chest pain. Denies any PND or orthopnea. He has occasional palpitation, occasional dizziness on standing, but really not that ambulatory except for he uses a cane he says. There is no chest pain, pressure, tightness, or heaviness with activity or shortness of breath with activity also. PAST MEDICAL HISTORY: Positive for high blood pressure. Apparently, he has been up and down at times. Borderline diabetes. No heart attack. He has a history of prostate cancer. During resection of that, he had issues with bladder and he has had incontinence he says. He has had no heart attack, no stroke. No hepatitis or tuberculosis. No asthma or emphysema. No ulcers. He has had some renal issues. He has had some kind of thyroid problems before. No arthritis or blood clots or HIV. ALLERGIES: He is not allergic to any medications. SOCIAL HISTORY: He does not drink or use drugs. REVIEW OF SYSTEMS: GASTROINTESTINAL: He has had some nausea, vomiting, diarrhea, and dark stools. GENITOURINARY: Incontinent bladder. PULMONARY: Negative. CONSTITUTIONAL: Negative. No fever, chills, or night sweats. NEUROLOGIC: He is able to walk with a cane. PHYSICAL EXAMINATION: VITAL SIGNS: His blood pressure was documented initially in the emergency room was 93/67, 128/70 subsequently. His heart rate at this time is 86 and his oxygen saturation is 98% to 99% on room air. GENERAL: Shows to be elderly gentleman, in no respiratory distress. HEENT: Unremarkable. NECK: Supple. No jugular venous distention. LUNGS: Clear to auscultation and percussion. CARDIAC: S1 is normal. S2 is normal. Regular rate and rhythm. No heaves, thrills, or gallops noted. ABDOMEN: Soft and nontender. Positive bowel sounds. EXTREMITIES: No edema. No clubbing or cyanosis. NEUROLOGIC: He is awake, alert, responsive, and in no apparent respiratory distress. LABORATORY AND DIAGNOSTIC VALUES: Laboratories, white count of 6.3, down from 12.4 yesterday, hemoglobin 8.8, and a platelet count of 179,000. Those are apparently levels that were similar to yesterday, but lower than they were back in June. Sodium 139, potassium 4.0, chloride 107, bicarb 20, BUN of 45, creatinine 2.9, and a glucose of 92. His BUN was 53 and creatinine of 5.3 yesterday and on 05/08/2016, he had a BUN of 20 and creatinine of 1.2. His uric acid is 8.1. Iron level was low at 16 with 6% saturation. CK of 260. CEA of 2.3, B12 of 353, and albumin of 3.5. His coags, INR 1.2 and PTT of 26. Urinalysis shows 1+ leukocyte esterase, 0 to 2 RBCs, and 2 to 4 WBCs. No cultures are available at this time. His x-rays, chest x-ray shows no acute findings. His telemetry data shows sinus rhythm, that was part of the episode of tachycardia at a rate of 150, however, there are no electrocardiograms for review. ASSESSMENT: 1. Hypotension. 2. Episode of what appears to be supraventricular tachycardia at a rate of 150, spontaneously converted. 3. History of seizure disorder. 4. History of prostate cancer. 5. Anemia. 6. Renal failure. PLAN: Dr. Isbell, this patient was seen in cardiac consultation. The patient should be monitored overnight, continue receiving IV fluids. An echocardiogram has not been performed, so we ordered for evaluation. EKG will also be ordered. His blood tests show a degree of anemia, which he did not have. He is iron deficient as well. He should be continued on IV fluids and may require blood transfusions. The etiology of his iron deficiency as well as anemia should be for possibility of GI bleed. He probably should have stool for occult blood to evaluate it. Logan Landrum M.D. DR: EVA JOB#: [id number] CC:
[2016-08-20 08:00] VITALS: BP 139/85
[2016-08-20] MEDS: Lisinopril 10mg tab ORAL SCH (08:34)
[2016-08-20] MEDS: Heparin 5000 units/ml inj SUBQ SCH ×2 (08:35→20:39)
--- NOTE | 2016-08-20 08:40 | General Progress Note ---
Assessment/Plan Problem List: (1) Chronic pain ICD Codes: G89.29 - Other chronic pain SNOMED: 52036680 (2) GERSON (acute kidney injury) ICD Codes: N17.9 - Acute kidney failure, unspecified SNOMED: 84136094, 210273896 (3) Hypotension ICD Codes: I95.9 - Hypotension, unspecified SNOMED: 23482307, 935269080 Qualifiers: Qualified Codes: I95.9 - Hypotension, unspecified (4) Acute renal failure (ARF) ICD Codes: N17.9 - Acute renal failure (ARF) SNOMED: 80857005 (5) Anxiety ICD Codes: F41.9 - Anxiety disorder, unspecified SNOMED: 76865361 (6) Anemia ICD Codes: D64.9 - Anemia, unspecified SNOMED: 907400482 (7) Seizure disorder ICD Codes: G40.909 - Epilepsy, unspecified, not intractable, without status epilepticus SNOMED: 921442164 Status: stable, progressing, tolerating diet Assessment/Plan ot pt diet bp seizure pain control cbc bmp am Subjective Constitutional: Reports: weakness Allergies: Coded Allergies: HALOPERIDOL (Verified Allergy, Mild, [place] really bad, 07/05/16) Makes him irritable. THIORIDAZINE (Verified Allergy, Mild, [place] really bad, 07/05/16) Makes him violent TRAZODONE (Verified Allergy, Mild, [place] really bad, 07/05/16) Too strong; inability to move. Uncoded Allergies: PSYCHOTROPIC MEDICATION (Allergy, Mild, 08/13/14) All Systems: reviewed and negative except above Subjective sleepy calm Objective Last 24 Hour Vital Signs Date Time Temp Pulse Resp B/P Pulse Ox O2 Delivery O2 Flow Rate FiO2 08/20/16 08:34 139/85 08/20/16 04:00 97.9 60 18 125/70 Room Air 08/20/16 00:00 98.6 67 18 136/68 98 Room Air 08/19/16 21:00 98.1 67 18 134/71 98 Room Air 08/19/16 20:00 98.1 72 20 123/71 Room Air 08/19/16 18:27 75 73 87 08/19/16 16:33 97.0 86 20 99/70 98 Room Air 08/19/16 16:00 82 08/19/16 12:08 97.0 68 20 120/69 98 Room Air 08/19/16 12:00 80 08/19/16 09:45 103/73 08/19/16 08:40 97.0 83 20 103/73 99 Room Air Intake and Output 08/19/16 08/20/16 19:00 07:00 Intake Total 1080 ml 500 ml Output Total 200 ml Balance 880 ml 500 ml Intake Oral 1080 ml 500 ml Output Urine Total 200 ml # Voids 3 3 Laboratory Tests 08/19/16 10:40: Urine Color Pale yellow, Urine Appearance Clear, Urine pH 6.5, Urine Specific [place] 1.010, Urine Protein 2+H, Urine Glucose (UA) Negative, Urine Ketones Negative, Urine Occult Blood 1+H, Urine Nitrite Negative, Urine Bilirubin Negative, Urine Urobilinogen Normal, Urine Leukocyte Esterase 1+H, Urine RBC 0- 2H, Urine WBC 2-4, Urine Squamous Epithelial Cells Occasional, Urine Bacteria Few, Urine Eosinophils None seen, Urine Random Sodium 57, Urine Potassium Timed 16 08/20/16 06:50: White Blood Count [Pending], Red Blood Count [Pending], Hemoglobin [Pending], Hematocrit [Pending], Mean Corpuscular Volume [Pending], Mean Corpuscular Hemoglobin [Pending], Mean Corpuscular Hemoglobin Concent [Pending], Red Cell Distribution Width [Pending], Platelet Count [Pending], Mean Platelet Volume [ Pending], Neutrophils (%) (Auto) [Pending], Lymphocytes (%) (Auto) [Pending], Monocytes (%) (Auto) [Pending], Eosinophils (%) (Auto) [Pending], Basophils (%) (Auto) [Pending], Sodium Level [Pending], Potassium Level [Pending], Chloride Level [Pending], Carbon Dioxide Level [Pending], Blood Urea Nitrogen [Pending], Creatinine [Pending], Estimat Glomerular Filtration Rate [Pending], Glucose Level [Pending], Calcium Level [Pending], Cortisol AM Sample [Pending] Height (Feet): 5 Height (Inches): 9.00 Weight (Pounds): 167 General Appearance: lethargic EENT: normal ENT inspection Neck: normal alignment Cardiovascular: normal peripheral pulses, normal rate, regular rhythm Respiratory/Chest: chest wall non-tender, lungs clear, normal breath sounds Abdomen: normal bowel sounds, non tender, soft Extremities: normal inspection Edema: no edema noted Arm (L), no edema noted Arm (R), no edema noted Leg (L), no edema noted Leg (R), no edema noted Pedal (L), no edema noted Pedal (R), no edema noted Generalized Neurologic: responsive, motor weakness Skin: normal pigmentation, warm/dry YU GARZA Aug 20, 2016 08:40
[2016-08-20] MEDS: LORazepam 1mg tab ORAL PRN ×3 (08:47→22:56)
[2016-08-20 08:53] LABS: BASOPHILS % (AUTO) 0.6 % (0.0-2.0); EOSINOPHILS % (AUTO) 1.6 % (0.0-3.0); LYMPHOCYTES % (AUTO) 17.5 % (20.0-45.0); MEAN CORPUSCULAR HEMOGLOBIN 28.1 PG (27.0-31.0); MEAN CORPUSCULAR HGB CONC 31.9 G/DL (32.0-36.0); MEAN CORPUSCULAR VOLUME 88 FL (80-99); MEAN PLATELET VOLUME 6.8 FL (6.5-10.1); MONOCYTES % (AUTO) 17.9 % (1.0-10.0); NEUTROPHILS % (AUTO) 62.5 % (45.0-75.0); PLATELET COUNT 151 K/UL (150-450); RED BLOOD COUNT 2.97 M/UL (4.70-6.10); RED CELL DISTRIBUTION WIDTH 16.4 % (11.6-14.8); WHITE BLOOD COUNT 4.4 K/UL (4.8-10.8)
[2016-08-20 09:01] LABS: ANION GAP 12 (5-15); CALCIUM 8.8 mg/dL (8.6-10.2); CARBON DIOXIDE 19 mEQ/L (20-30); CHLORIDE 108 mEQ/L (98-107); CREATININE 1.3 mg/dL (0.7-1.2); GLOMERULAR FILTRATION RATE > 60 mL/min (>60); HEMOLYSIS 1; POTASSIUM 4.2 mEQ/L (3.4-4.9); SODIUM 139 mEQ/L (135-145)
[2016-08-20] MEDS: Morphine Sulfate 2mg/ml Inj IVP PRN ×3 (09:09→18:04)
[2016-08-20 12:00] VITALS: BP 147/81
--- NOTE | 2016-08-20 14:26 | Infectious Diseases Prog Note ---
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 (5) Hypotension Assessment & Plan: rule out sepsis, send blood culture, monitor vitals, continue hydration (6) Chronic low back pain Assessment & Plan: continue pain management as per primary Subjective Constitutional: Reports: no symptoms HEENT: Reports: no symptoms Respiratory: Reports: no symptoms Breasts: Reports: no symptoms Cardiovascular: Reports: no symptoms Gastrointestinal/Abdominal: Reports: no symptoms Genitourinary: Reports: no symptoms Neurologic: Reports: no symptoms Psychiatric: Reports: no symptoms Skin: Reports: no symptoms Endocrine: Reports: no symptoms Musculoskeletal: Reports: pain Allergies: Coded Allergies: HALOPERIDOL (Verified Allergy, Mild, [place] really bad, 07/05/16) Makes him irritable. THIORIDAZINE (Verified Allergy, Mild, [place] really bad, 07/05/16) Makes him violent TRAZODONE (Verified Allergy, Mild, [place] really bad, 07/05/16) Too strong; inability to move. Uncoded Allergies: PSYCHOTROPIC MEDICATION (Allergy, Mild, 08/13/14) Objective Vital Signs Last 24 Hour Vital Signs Date Time Temp Pulse Resp B/P Pulse Ox O2 Delivery O2 Flow Rate FiO2 08/20/16 13:40 97.2 08/20/16 12:00 97.2 63 18 147/81 100 Room Air 08/20/16 08:34 139/85 08/20/16 08:00 97.5 72 20 139/85 100 Room Air 08/20/16 04:00 97.9 60 18 125/70 Room Air 08/20/16 00:00 98.6 67 18 136/68 98 Room Air 08/19/16 21:00 98.1 67 18 134/71 98 Room Air 08/19/16 20:00 98.1 72 20 123/71 Room Air 08/19/16 18:27 75 73 87 08/19/16 16:33 97.0 86 20 99/70 98 Room Air 08/19/16 16:00 82 Height (Feet): 5 Height (Inches): 9.00 Weight (Pounds): 167 General Appearance: WD/WN, no acute distress HEENT: normocephalic, atraumatic, anicteric, mucous membranes moist, PERRL, EOMI, pharynx normal, supple Respiratory/Chest: chest wall non-tender, lungs clear, normal breath sounds, no respiratory distress, no accessory muscle use Cardiovascular: normal peripheral pulses, normal rate, regular rhythm, no gallop/murmur, no JVD Abdomen: normal bowel sounds, soft, non tender, no organomegaly, non distended , no mass, no scars Extremities: no cyanosis, no clubbing Skin: no rash, no lesions Lymphatic: no neck adenopathy, no groin adenopathy Musculoskeletal: normal muscle bulk, no effusion Microbiology Date/Time Source Procedure Growth Status 08/19/16 06:10 Blood Blood Culture - Preliminary NO GROWTH AFTER 24 HOURS Resulted 08/19/16 05:55 Blood Blood Culture - Preliminary NO GROWTH AFTER 24 HOURS Resulted 08/18/16 21:30 Nasal Nares MRSA Culture - Final NO METHICILLIN RESISTANT STAPH AUREUS... Complete Laboratory Tests Test 08/20/16 06:50 08/20/16 09:03 White Blood Count 4.4 K/UL (4.8-10.8) L Red Blood Count 2.97 M/UL (4.70-6.10) L Hemoglobin 8.3 G/DL (14.2-18.0) L Hematocrit 26.2 % (42.0-52.0) L Mean Corpuscular Volume 88 FL (80-99) Mean Corpuscular Hemoglobin 28.1 PG (27.0-31.0) Mean Corpuscular Hemoglobin Concent 31.9 G/DL (32.0-36.0) L Red Cell Distribution Width 16.4 % (11.6-14.8) H Platelet Count 151 K/UL (150-450) Mean Platelet Volume 6.8 FL (6.5-10.1) Neutrophils (%) (Auto) 62.5 % (45.0-75.0) Lymphocytes (%) (Auto) 17.5 % (20.0-45.0) L Monocytes (%) (Auto) 17.9 % (1.0-10.0) H Eosinophils (%) (Auto) 1.6 % (0.0-3.0) Basophils (%) (Auto) 0.6 % (0.0-2.0) Sodium Level 139 mEQ/L (135-145) Potassium Level 4.2 mEQ/L (3.4-4.9) Chloride Level 108 mEQ/L (98-107) H Carbon Dioxide Level 19 mEQ/L (20-30) L Anion Gap 12 (5-15) Blood Urea Nitrogen 25 mg/dL (7-23) H Creatinine 1.3 mg/dL (0.7-1.2) #H Estimat Glomerular Filtration Rate > 60 mL/min (>60) Glucose Level 95 mg/dL (74-106) Calcium Level 8.8 mg/dL (8.6-10.2) Cortisol AM Sample 20.3 ug/dL (6.0-20.0) H Urine Opiates Screen Negative (NEGATIVE) Urine Barbiturates Screen Negative (NEGATIVE) Phencyclidine (PCP) Screen Negative (NEGATIVE) Urine Amphetamines Screen Negative (NEGATIVE) Urine Benzodiazepines Screen Negative (NEGATIVE) Urine Cocaine Screen Negative (NEGATIVE) Urine Marijuana (THC) Screen Negative (NEGATIVE) Current Medications Medications (Trade) Dose Ordered Sig/Jesi Route PRN Reason Start Time Stop Time Status Last Admin Dose Admin Acetaminophen (Tylenol) 650 mg Q4H PRN ORAL fever 08/19/16 21:05 09/18/16 21:04 Al Hydroxide/Mg Hydroxide (Mylanta II) 30 ml Q6H PRN ORAL dyspepsia 08/19/16 21:05 09/18/16 21:04 Dextrose (Dextrose 50%) STAT PRN IV Hypoglycemia 08/19/16 21:06 09/18/16 21:05 Heparin Sodium (Porcine) (Heparin 5000 units/ml) 5,000 units EVERY 12 HOURS SUBQ 08/19/16 21:30 09/18/16 21:29 08/20/16 08:35 Levetiracetam (Keppra) 1,500 mg Q12HR ORAL 08/19/16 21:30 09/18/16 21:29 08/20/16 08:33 Lisinopril (Zestril) 10 mg DAILY ORAL 08/20/16 09:00 09/19/16 08:59 08/20/16 08:34 Lorazepam (Ativan 2mg/ml 1ml) 2 mg Q1H PRN IV seizures 08/19/16 21:06 08/26/16 21:05 08/19/16 22:20 Lorazepam (Ativan) 1 mg Q6H PRN ORAL For Anxiety 08/19/16 21:06 08/26/16 21:05 08/20/16 08:47 Morphine Sulfate (Morphine Sulfate) 1 mg Q4H PRN IVP For Pain 08/19/16 21:12 08/26/16 21:11 08/20/16 13:11 Ondansetron HCl (Zofran) 4 mg Q6H PRN IVP Nausea & Vomiting 08/19/16 21:07 09/18/16 21:06 Polyethylene Glycol (Miralax) 17 gm HSPRN PRN ORAL Constipation 08/19/16 21:07 09/18/16 21:06 Sodium Chloride (Sodium Chloride 1000ml bag) 1,000 ml @ 70 mls/hr [id number] IV 08/20/16 14:00 09/19/16 13:59 08/20/16 13:12 Zolpidem Tartrate 5 mg 5 mg HSPRN PRN ORAL Insomnia 08/19/16 21:07 09/18/16 21:06 Lizzy Rothman M.D. Aug 20, 2016 14:26
[2016-08-20 16:00] VITALS: BP 146/83
--- NOTE | 2016-08-20 16:45 | Cardiology Progress Note ---
Assessment/Plan Problem List: (1) Rhabdomyolysis (2) Hypernatremia (3) GERSON (acute kidney injury) (4) Hypotension (5) Seizure disorder Status: doing well, stable Status Narrative Mr. Porras is stable, transferred from telemetry today. No arrhythmia sx. Hx of SVT on adm BP slightly elevated, on lisinopril Assessment/Plan Continue current meds. Would avoid aggressive antihypertensive rx, as pt w/ hx of labile bps, hypotension in past. continue iv hydration - GERSON resolving. Subjective ROS Limited/Unobtainable: No Subjective Cardiology for Dr. Landrum Mr Porras has no c/o CP, palpitations or dyspnea. Objective Last 24 Hour Vital Signs Date Time Temp Pulse Resp B/P Pulse Ox O2 Delivery O2 Flow Rate FiO2 08/20/16 16:00 98.0 64 18 146/83 99 Room Air 08/20/16 13:40 97.2 08/20/16 12:00 97.2 63 18 147/81 100 Room Air 08/20/16 08:34 139/85 08/20/16 08:00 97.5 72 20 139/85 100 Room Air 08/20/16 04:00 97.9 60 18 125/70 Room Air 08/20/16 00:00 98.6 67 18 136/68 98 Room Air 08/19/16 21:00 98.1 67 18 134/71 98 Room Air 08/19/16 20:00 98.1 72 20 123/71 Room Air 08/19/16 18:27 75 73 87 General Appearance: WD/WN, no apparent distress, alert EENT: PERRL/EOMI, pharynx normal Neck: supple, no JVD Rhythm: NSR Cardiovascular: normal rate, regular rhythm, no gallop/murmur Respiratory/Chest: lungs clear Abdomen: non tender, soft Extremities: no swelling Intake and Output 08/19/16 08/20/16 19:00 07:00 Intake Total 1080 ml 500 ml Output Total 200 ml Balance 880 ml 500 ml Intake Oral 1080 ml 500 ml Output Urine Total 200 ml # Voids 3 3 Laboratory Tests Test 08/20/16 06:50 08/20/16 09:03 White Blood Count 4.4 K/UL (4.8-10.8) L Red Blood Count 2.97 M/UL (4.70-6.10) L Hemoglobin 8.3 G/DL (14.2-18.0) L Hematocrit 26.2 % (42.0-52.0) L Mean Corpuscular Volume 88 FL (80-99) Mean Corpuscular Hemoglobin 28.1 PG (27.0-31.0) Mean Corpuscular Hemoglobin Concent 31.9 G/DL (32.0-36.0) L Red Cell Distribution Width 16.4 % (11.6-14.8) H Platelet Count 151 K/UL (150-450) Mean Platelet Volume 6.8 FL (6.5-10.1) Neutrophils (%) (Auto) 62.5 % (45.0-75.0) Lymphocytes (%) (Auto) 17.5 % (20.0-45.0) L Monocytes (%) (Auto) 17.9 % (1.0-10.0) H Eosinophils (%) (Auto) 1.6 % (0.0-3.0) Basophils (%) (Auto) 0.6 % (0.0-2.0) Sodium Level 139 mEQ/L (135-145) Potassium Level 4.2 mEQ/L (3.4-4.9) Chloride Level 108 mEQ/L (98-107) H Carbon Dioxide Level 19 mEQ/L (20-30) L Anion Gap 12 (5-15) Blood Urea Nitrogen 25 mg/dL (7-23) H Creatinine 1.3 mg/dL (0.7-1.2) #H Estimat Glomerular Filtration Rate > 60 mL/min (>60) Glucose Level 95 mg/dL (74-106) Calcium Level 8.8 mg/dL (8.6-10.2) Cortisol AM Sample 20.3 ug/dL (6.0-20.0) H Urine Opiates Screen Negative (NEGATIVE) Urine Barbiturates Screen Negative (NEGATIVE) Phencyclidine (PCP) Screen Negative (NEGATIVE) Urine Amphetamines Screen Negative (NEGATIVE) Urine Benzodiazepines Screen Negative (NEGATIVE) Urine Cocaine Screen Negative (NEGATIVE) Urine Marijuana (THC) Screen Negative (NEGATIVE) Microbiology Date/Time Source Procedure Growth Status 08/19/16 06:10 Blood Blood Culture - Preliminary NO GROWTH AFTER 24 HOURS Resulted 08/19/16 05:55 Blood Blood Culture - Preliminary NO GROWTH AFTER 24 HOURS Resulted 08/18/16 21:30 Nasal Nares MRSA Culture - Final NO METHICILLIN RESISTANT STAPH AUREUS... Complete DENNIS ABDULLAHI Aug 20, 2016 16:45
[2016-08-20] MEDS: BusPIRone 10mg Tab ORAL SCH (18:17)
--- NOTE | 2016-08-20 19:16 | Pulmonology Progress Note ---
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 THIORIDAZINE (Verified Allergy, Mild, [place] really bad, 07/05/16) Makes him violent TRAZODONE (Verified Allergy, Mild, [place] really bad, 07/05/16) Too strong; inability to move. Uncoded Allergies: PSYCHOTROPIC MEDICATION (Allergy, Mild, 08/13/14) Objective Last 24 Hour Vital Signs Date Time Temp Pulse Resp B/P Pulse Ox O2 Delivery O2 Flow Rate FiO2 08/20/16 18:00 98.0 08/20/16 16:00 98.0 64 18 146/83 99 Room Air 08/20/16 12:00 97.2 63 18 147/81 100 Room Air 08/20/16 08:34 139/85 08/20/16 08:00 97.5 72 20 139/85 100 Room Air 08/20/16 04:00 97.9 60 18 125/70 Room Air 08/20/16 00:00 98.6 67 18 136/68 98 Room Air 08/19/16 21:00 98.1 67 18 134/71 98 Room Air 08/19/16 20:00 98.1 72 20 123/71 Room Air Intake and Output 08/19/16 08/20/16 19:00 07:00 Intake Total 1080 ml 500 ml Output Total 200 ml Balance 880 ml 500 ml Intake Oral 1080 ml 500 ml Output Urine Total 200 ml # Voids 3 3 Objective General Appearance: WD/WN HEENT: normocephalic Respiratory/Chest: chest wall non-tender, lungs clear Cardiovascular: normal peripheral pulses, normal rate Abdomen: normal bowel sounds, soft, non tender Extremities: no cyanosis, other - effusion in both knees Skin: no rash Microbiology Date/Time Source Procedure Growth Status 08/19/16 06:10 Blood Blood Culture - Preliminary NO GROWTH AFTER 24 HOURS Resulted 08/19/16 05:55 Blood Blood Culture - Preliminary NO GROWTH AFTER 24 HOURS Resulted 08/18/16 21:30 Nasal Nares MRSA Culture - Final NO METHICILLIN RESISTANT STAPH AUREUS... Complete Laboratory Tests 08/20/16 06:50: White Blood Count 4.4L, Red Blood Count 2.97L, Hemoglobin 8.3L, Hematocrit 26.2L , Mean Corpuscular Volume 88, Mean Corpuscular Hemoglobin 28.1, Mean Corpuscular Hemoglobin Concent 31.9L, Red Cell Distribution Width 16.4H, Platelet Count 151, Mean Platelet Volume 6.8, Neutrophils (%) (Auto) 62.5, Lymphocytes (%) (Auto) 17.5L, Monocytes (%) (Auto) 17.9H, Eosinophils (%) (Auto ) 1.6, Basophils (%) (Auto) 0.6, Sodium Level 139, Potassium Level 4.2, Chloride Level 108H, Carbon Dioxide Level 19L, Anion Gap 12, Blood Urea Nitrogen 25H, Creatinine 1.3#H, Estimat Glomerular Filtration Rate > 60, Glucose Level 95, Calcium Level 8.8, Cortisol AM Sample 20.3H 08/20/16 09:03: Urine Opiates Screen Negative, Urine Barbiturates Screen Negative, Phencyclidine (PCP) Screen Negative, Urine Amphetamines Screen Negative, Urine Benzodiazepines Screen Negative, Urine Cocaine Screen Negative, Urine Marijuana (THC) Screen Negative Current Medications Medications (Trade) Dose Ordered Sig/Jesi Route PRN Reason Start Time Stop Time Status Last Admin Dose Admin Acetaminophen (Tylenol) 650 mg Q4H PRN ORAL fever 08/19/16 21:05 09/18/16 21:04 Al Hydroxide/Mg Hydroxide (Mylanta II) 30 ml Q6H PRN ORAL dyspepsia 08/19/16 21:05 09/18/16 21:04 Alprazolam (Xanax) 2 mg Q12HR ORAL 08/20/16 21:00 08/27/16 20:59 Buspirone HCl (Buspar) 10 mg BID ORAL 08/20/16 18:00 09/19/16 17:59 08/20/16 18:17 Dextrose (Dextrose 50%) STAT PRN IV Hypoglycemia 08/19/16 21:06 09/18/16 21:05 Heparin Sodium (Porcine) (Heparin 5000 units/ml) 5,000 units EVERY 12 HOURS SUBQ 08/19/16 21:30 09/18/16 21:29 08/20/16 08:35 Levetiracetam (Keppra) 1,500 mg Q12HR ORAL 08/19/16 21:30 09/18/16 21:29 08/20/16 08:33 Lisinopril (Zestril) 10 mg DAILY ORAL 08/20/16 09:00 09/19/16 08:59 08/20/16 08:34 Lorazepam (Ativan 2mg/ml 1ml) 2 mg Q1H PRN IV seizures 08/19/16 21:06 08/26/16 21:05 08/19/16 22:20 Lorazepam (Ativan) 1 mg Q6H PRN ORAL For Anxiety 08/19/16 21:06 08/26/16 21:05 08/20/16 15:16 Morphine Sulfate (Morphine Sulfate) 1 mg Q4H PRN IVP For Pain 08/19/16 21:12 08/26/16 21:11 08/20/16 18:04 Ondansetron HCl (Zofran) 4 mg Q6H PRN IVP Nausea & Vomiting 08/19/16 21:07 09/18/16 21:06 Pantoprazole (Protonix) 40 mg DAILY ORAL 08/21/16 09:00 09/20/16 08:59 Polyethylene Glycol (Miralax) 17 gm HSPRN PRN ORAL Constipation 08/19/16 21:07 09/18/16 21:06 Sodium Chloride (Sodium Chloride 1000ml bag) 1,000 ml @ 70 mls/hr [id number] IV 08/20/16 14:00 09/19/16 13:59 08/20/16 13:12 Zolpidem Tartrate 5 mg 5 mg HSPRN PRN ORAL Insomnia 08/19/16 21:07 09/18/16 21:06 LAQUITA VAZQUEZ Aug 20, 2016 19:16
[2016-08-20 20:00] VITALS: BP 131/69
[2016-08-20] MEDS: ALPRAZolam 0.25mg tab ORAL SCH (20:38)
[2016-08-20] MEDS: Mylanta II UD 30ml ORAL PRN (22:56)
[2016-08-21] VITALS: BP 156/92
[2016-08-21 04:00] VITALS: BP 152/95
[2016-08-21 07:28] LABS: MEAN CORPUSCULAR HEMOGLOBIN 27.4 PG (27.0-31.0); MEAN CORPUSCULAR HGB CONC 30.7 G/DL (32.0-36.0); MEAN CORPUSCULAR VOLUME 89 FL (80-99); MEAN PLATELET VOLUME 6.8 FL (6.5-10.1); PLATELET COUNT 171 K/UL (150-450); RED BLOOD COUNT 3.11 M/UL (4.70-6.10); RED CELL DISTRIBUTION WIDTH 16.3 % (11.6-14.8); WHITE BLOOD COUNT 3.1 K/UL (4.8-10.8)
--- NOTE | 2016-08-21 07:31 | General Progress Note ---
Assessment/Plan Problem List: (1) Chronic pain ICD Codes: G89.29 - Other chronic pain SNOMED: 21179786 (2) GERSON (acute kidney injury) ICD Codes: N17.9 - Acute kidney failure, unspecified SNOMED: 44335883, 851120729 (3) Hypotension ICD Codes: I95.9 - Hypotension, unspecified SNOMED: 88264420, 332087106 Qualifiers: Qualified Codes: I95.9 - Hypotension, unspecified (4) Acute renal failure (ARF) ICD Codes: N17.9 - Acute renal failure (ARF) SNOMED: 32906127 (5) Anxiety ICD Codes: F41.9 - Anxiety disorder, unspecified SNOMED: 86304105 (6) Anemia ICD Codes: D64.9 - Anemia, unspecified SNOMED: 189268386 (7) Seizure disorder ICD Codes: G40.909 - Epilepsy, unspecified, not intractable, without status epilepticus SNOMED: 284406256 Status: stable, progressing, tolerating diet Assessment/Plan ot pt diet bp seizure pain control cbc bmp am hh eval Subjective Constitutional: Reports: weakness Allergies: Coded Allergies: HALOPERIDOL (Verified Allergy, Mild, [place] really bad, 07/05/16) Makes him irritable. THIORIDAZINE (Verified Allergy, Mild, [place] really bad, 07/05/16) Makes him violent TRAZODONE (Verified Allergy, Mild, [place] really bad, 07/05/16) Too strong; inability to move. Uncoded Allergies: PSYCHOTROPIC MEDICATION (Allergy, Mild, 08/13/14) All Systems: reviewed and negative except above Subjective anxious c/o sl gen pain Objective Last 24 Hour Vital Signs Date Time Temp Pulse Resp B/P Pulse Ox O2 Delivery O2 Flow Rate FiO2 08/21/16 04:00 97.0 57 20 152/95 100 Room Air 08/21/16 00:00 97.5 64 20 156/92 99 Room Air 08/20/16 20:00 98.1 72 20 131/69 99 Room Air 08/20/16 18:00 98.0 08/20/16 16:00 98.0 64 18 146/83 99 Room Air 08/20/16 12:00 97.2 63 18 147/81 100 Room Air 08/20/16 08:34 139/85 08/20/16 08:00 97.5 72 20 139/85 100 Room Air Intake and Output 08/20/16 08/21/16 19:00 07:00 Intake Total 1220 ml 630 ml Output Total 450 ml Balance 1220 ml 180 ml Intake Oral 800 ml IV Total 420 ml 630 ml Output Urine Total 450 ml # Voids 5 Laboratory Tests 08/20/16 09:03: Urine Opiates Screen Negative, Urine Barbiturates Screen Negative, Phencyclidine (PCP) Screen Negative, Urine Amphetamines Screen Negative, Urine Benzodiazepines Screen Negative, Urine Cocaine Screen Negative, Urine Marijuana (THC) Screen Negative 08/21/16 06:10: White Blood Count [Pending], Red Blood Count [Pending], Hemoglobin [Pending], Hematocrit [Pending], Mean Corpuscular Volume [Pending], Mean Corpuscular Hemoglobin [Pending], Mean Corpuscular Hemoglobin Concent [Pending], Red Cell Distribution Width [Pending], Platelet Count [Pending], Mean Platelet Volume [ Pending], Neutrophils (%) (Auto) [Pending], Lymphocytes (%) (Auto) [Pending], Monocytes (%) (Auto) [Pending], Eosinophils (%) (Auto) [Pending], Basophils (%) (Auto) [Pending], Sodium Level [Pending], Potassium Level [Pending], Chloride Level [Pending], Carbon Dioxide Level [Pending], Blood Urea Nitrogen [Pending], Creatinine [Pending], Estimat Glomerular Filtration Rate [Pending], Glucose Level [Pending], Calcium Level [Pending] Height (Feet): 5 Height (Inches): 9.00 Weight (Pounds): 167 General Appearance: alert EENT: normal ENT inspection Neck: normal alignment Cardiovascular: normal peripheral pulses, normal rate, regular rhythm Respiratory/Chest: chest wall non-tender, lungs clear, normal breath sounds Abdomen: normal bowel sounds, non tender, soft Extremities: normal inspection Edema: no edema noted Arm (L), no edema noted Arm (R), no edema noted Leg (L), no edema noted Leg (R), no edema noted Pedal (L), no edema noted Pedal (R), no edema noted Generalized Neurologic: responsive, motor weakness Skin: normal pigmentation, warm/dry YU GARZA Aug 21, 2016 07:31
[2016-08-21 07:49] LABS: ANION GAP 9 (5-15); CARBON DIOXIDE 23 mEQ/L (20-30); CHLORIDE 109 mEQ/L (98-107); CREATININE 1.2 mg/dL (0.7-1.2); GLOMERULAR FILTRATION RATE > 60 mL/min (>60); HEMOLYSIS 3; SODIUM 141 mEQ/L (135-145)
[2016-08-21 08:00] VITALS: BP 149/79
[2016-08-21] MEDS: ALPRAZolam 0.25mg tab ORAL SCH ×2 (08:27→21:21)
[2016-08-21] MEDS: BusPIRone 10mg Tab ORAL SCH ×2 (08:27→16:57)
[2016-08-21] MEDS: Lisinopril 10mg tab ORAL SCH (08:27)
[2016-08-21] MEDS: Heparin 5000 units/ml inj SUBQ SCH ×2 (08:38→21:24)
[2016-08-21 08:43] LABS: ANISOCYTOSIS 1+; BAND NEUTROPHILS % (MANUAL) 0 % (0-8); BASOPHILS % (MANUAL) 0 % (0-2); EOSINOPHILS % (MANUAL) 6 % (0-3); HYPOCHROMASIA 1+; LYMPHOCYTES % (MANUAL) 24 % (20-45); NEUTROPHILS % (MANUAL) 62 % (45-75); PLATELET ESTIMATE ADEQUATE; PLATELET MORPHOLOGY NORMAL; TOTAL CELLS COUNTED 100
--- NOTE | 2016-08-21 10:41 | Infectious Diseases Prog Note ---
Assessment/Plan Problems: (1) Sepsis Assessment & Plan: less likely, no more leukocytosis and hypotension resolved with hydration, blood culture is negative , monitor WBC, no evidence of pneumonia or UTI, keep off antibiotics for now (2) GERSON (acute kidney injury) Assessment & Plan: improved, due to hypotension and dehydration, continue IVF for hydration (3) Prostate cancer, primary, 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 site Assessment & Plan: recommend oncology consult and brain images to rule out mets (4) exacerbation of seizure d/o 2/2 noncompliance Assessment & Plan: continue neuro check , monitor drug level, follow up with neurology . (5) Chronic low back pain Assessment & Plan: continue pain management as per primary (6) Colonization with VRE (vancomycin-resistant enterococcus) Assessment & Plan: keep in contact isolation Subjective Constitutional: Reports: no symptoms HEENT: Reports: no symptoms Respiratory: Reports: no symptoms Breasts: Reports: no symptoms Cardiovascular: Reports: no symptoms Gastrointestinal/Abdominal: Reports: no symptoms Genitourinary: Reports: no symptoms Neurologic: Reports: no symptoms Psychiatric: Reports: no symptoms Skin: Reports: no symptoms Endocrine: Reports: no symptoms Hematologic: Reports: no symptoms Musculoskeletal: Reports: pain Allergies: Coded Allergies: HALOPERIDOL (Verified Allergy, Mild, [place] really bad, 07/05/16) Makes him irritable. THIORIDAZINE (Verified Allergy, Mild, [place] really bad, 07/05/16) Makes him violent TRAZODONE (Verified Allergy, Mild, [place] really bad, 07/05/16) Too strong; inability to move. Uncoded Allergies: PSYCHOTROPIC MEDICATION (Allergy, Mild, 08/13/14) Objective Vital Signs Last 24 Hour Vital Signs Date Time Temp Pulse Resp B/P Pulse Ox O2 Delivery O2 Flow Rate FiO2 08/21/16 08:27 152/95 08/21/16 08:00 97.7 65 18 149/79 100 Room Air 08/21/16 04:00 97.0 57 20 152/95 100 Room Air 08/21/16 00:00 97.5 64 20 156/92 99 Room Air 08/20/16 20:00 98.1 72 20 131/69 99 Room Air 08/20/16 18:00 98.0 08/20/16 16:00 98.0 64 18 146/83 99 Room Air 08/20/16 12:00 97.2 63 18 147/81 100 Room Air Height (Feet): 5 Height (Inches): 9.00 Weight (Pounds): 167 General Appearance: WD/WN, no acute distress HEENT: normocephalic, atraumatic, anicteric, mucous membranes moist, PERRL Respiratory/Chest: chest wall non-tender, lungs clear, normal breath sounds, no respiratory distress, no accessory muscle use Cardiovascular: normal peripheral pulses, normal rate, regular rhythm, no gallop/murmur, no JVD Abdomen: normal bowel sounds, soft, non tender, no organomegaly, non distended , no mass Extremities: no cyanosis, no clubbing Skin: no rash, no lesions Neurologic/Psychiatric: alert, oriented x 3 Lymphatic: no neck adenopathy, no groin adenopathy Microbiology Date/Time Source Procedure Growth Status 08/19/16 06:10 Blood Blood Culture - Preliminary NO GROWTH AFTER 48 HOURS Resulted 08/19/16 05:55 Blood Blood Culture - Preliminary NO GROWTH AFTER 48 HOURS Resulted 08/18/16 21:30 Nasal Nares MRSA Culture - Final NO METHICILLIN RESISTANT STAPH AUREUS... Complete Laboratory Tests Test 08/21/16 06:10 White Blood Count 3.1 K/UL (4.8-10.8) L Red Blood Count 3.11 M/UL (4.70-6.10) L Hemoglobin 8.5 G/DL (14.2-18.0) L Hematocrit 27.8 % (42.0-52.0) L Mean Corpuscular Volume 89 FL (80-99) Mean Corpuscular Hemoglobin 27.4 PG (27.0-31.0) Mean Corpuscular Hemoglobin Concent 30.7 G/DL (32.0-36.0) L Red Cell Distribution Width 16.3 % (11.6-14.8) H Platelet Count 171 K/UL (150-450) Mean Platelet Volume 6.8 FL (6.5-10.1) Neutrophils (%) (Auto) % (45.0-75.0) Lymphocytes (%) (Auto) % (20.0-45.0) Monocytes (%) (Auto) % (1.0-10.0) Eosinophils (%) (Auto) % (0.0-3.0) Basophils (%) (Auto) % (0.0-2.0) Differential Total Cells Counted 100 Neutrophils % (Manual) 62 % (45-75) Lymphocytes % (Manual) 24 % (20-45) Monocytes % (Manual) 8 % (1-10) Eosinophils % (Manual) 6 % (0-3) H Basophils % (Manual) 0 % (0-2) Band Neutrophils 0 % (0-8) Platelet Estimate Adequate Platelet Morphology Normal Hypochromasia 1+ Anisocytosis 1+ Sodium Level 141 mEQ/L (135-145) Potassium Level 4.0 mEQ/L (3.4-4.9) Chloride Level 109 mEQ/L (98-107) H Carbon Dioxide Level 23 mEQ/L (20-30) Anion Gap 9 (5-15) Blood Urea Nitrogen 17 mg/dL (7-23) Creatinine 1.2 mg/dL (0.7-1.2) Estimat Glomerular Filtration Rate > 60 mL/min (>60) Glucose Level 112 mg/dL (74-106) H Calcium Level 9.0 mg/dL (8.6-10.2) Current Medications Medications (Trade) Dose Ordered Sig/Jesi Route PRN Reason Start Time Stop Time Status Last Admin Dose Admin Acetaminophen (Tylenol) 650 mg Q4H PRN ORAL fever 08/19/16 21:05 09/18/16 21:04 Al Hydroxide/Mg Hydroxide (Mylanta II) 30 ml Q6H PRN ORAL dyspepsia 08/19/16 21:05 09/18/16 21:04 08/20/16 22:56 Alprazolam (Xanax) 2 mg Q12HR ORAL 08/20/16 21:00 08/27/16 20:59 08/21/16 08:27 Bisacodyl 20 mg 20 mg ONCE ONCE ORAL 08/21/16 12:00 08/21/16 12:01 Buspirone HCl (Buspar) 10 mg BID ORAL 08/20/16 18:00 09/19/16 17:59 08/21/16 08:27 Dextrose (Dextrose 50%) STAT PRN IV Hypoglycemia 08/19/16 21:06 09/18/16 21:05 Heparin Sodium (Porcine) (Heparin 5000 units/ml) 5,000 units EVERY 12 HOURS SUBQ 08/19/16 21:30 09/18/16 21:29 08/20/16 20:39 Iron Sucrose/ Sodium Chloride (Venofer/Sodium Chloride) 60 ml @ 240 mls/hr BEDTIME IVPB 08/21/16 21:00 08/25/16 21:14 Levetiracetam (Keppra) 1,500 mg Q12HR ORAL 08/19/16 21:30 09/18/16 21:29 08/21/16 08:28 Lisinopril (Zestril) 10 mg DAILY ORAL 08/20/16 09:00 09/19/16 08:59 08/21/16 08:27 Lorazepam (Ativan 2mg/ml 1ml) 2 mg Q1H PRN IV seizures 08/19/16 21:06 08/26/16 21:05 08/19/16 22:20 Lorazepam (Ativan) 1 mg Q6H PRN ORAL For Anxiety 08/19/16 21:06 08/26/16 21:05 08/20/16 22:56 Morphine Sulfate (Morphine Sulfate) 1 mg Q4H PRN IVP For Pain 08/19/16 21:12 08/26/16 21:11 08/20/16 18:04 Ondansetron HCl (Zofran) 4 mg Q6H PRN IVP Nausea & Vomiting 08/19/16 21:07 09/18/16 21:06 Pantoprazole (Protonix) 40 mg EVERY 12 HOURS ORAL 08/21/16 09:00 09/20/16 08:59 08/21/16 08:35 Polyethylene Glycol (Miralax) 17 gm HSPRN PRN ORAL Constipation 08/19/16 21:07 09/18/16 21:06 Polyethylene Glycol/ Electrolytes (Nulytely) 4,000 ml ONCE ONCE ORAL 08/21/16 15:00 08/21/16 15:01 Sodium Chloride (Sodium Chloride 1000ml bag) 1,000 ml @ 70 mls/hr [id number] IV 08/20/16 14:00 09/19/16 13:59 08/21/16 08:36 Zolpidem Tartrate 5 mg 5 mg HSPRN PRN ORAL Insomnia 08/19/16 21:07 09/18/16 21:06 08/20/16 22:56 Lizzy Rothman M.D. Aug 21, 2016 10:41
--- NOTE | 2016-08-21 10:50 | Nephrology Progress Note ---
Assessment/Plan Problem List: (1) GERSON (acute kidney injury) (2) Hypotension (3) Prostate cancer, primary, 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 site (4) exacerbation of seizure d/o 2/2 noncompliance (5) Chronic pain Plan cont IVF for now. monitor closely. check bladder scan for PVR. d/w Dr. Lau. Will follow. thanks. Subjective Subjective started on IVF yesterday. urinating ok. does c/o abdominal discomfort. Objective Objective Last 24 Hour Vital Signs Date Time Temp Pulse Resp B/P Pulse Ox O2 Delivery O2 Flow Rate FiO2 08/21/16 08:27 152/95 08/21/16 08:00 97.7 65 18 149/79 100 Room Air 08/21/16 04:00 97.0 57 20 152/95 100 Room Air 08/21/16 00:00 97.5 64 20 156/92 99 Room Air 08/20/16 20:00 98.1 72 20 131/69 99 Room Air 08/20/16 18:00 98.0 08/20/16 16:00 98.0 64 18 146/83 99 Room Air 08/20/16 12:00 97.2 63 18 147/81 100 Room Air Intake and Output 08/20/16 08/21/16 19:00 07:00 Intake Total 1220 ml 630 ml Output Total 450 ml Balance 1220 ml 180 ml Intake Oral 800 ml IV Total 420 ml 630 ml Output Urine Total 450 ml # Voids 5 Laboratory Tests 08/21/16 06:10: White Blood Count 3.1L, Red Blood Count 3.11L, Hemoglobin 8.5L, Hematocrit 27.8L , Mean Corpuscular Volume 89, Mean Corpuscular Hemoglobin 27.4, Mean Corpuscular Hemoglobin Concent 30.7L, Red Cell Distribution Width 16.3H, Platelet Count 171, Mean Platelet Volume 6.8, Neutrophils (%) (Auto) , Lymphocytes (%) (Auto) , Monocytes (%) (Auto) , Eosinophils (%) (Auto) , Basophils (%) (Auto) , Differential Total Cells Counted 100, Neutrophils % ( Manual) 62, Lymphocytes % (Manual) 24, Monocytes % (Manual) 8, Eosinophils % ( Manual) 6H, Basophils % (Manual) 0, Band Neutrophils 0, Platelet Estimate Adequate, Platelet Morphology Normal, Hypochromasia 1+, Anisocytosis 1+, Sodium Level 141, Potassium Level 4.0, Chloride Level 109H, Carbon Dioxide Level 23, Anion Gap 9, Blood Urea Nitrogen 17, Creatinine 1.2, Estimat Glomerular Filtration Rate > 60, Glucose Level 112H, Calcium Level 9.0 Height (Feet): 5 Height (Inches): 9.00 Weight (Pounds): 167 General Appearance: no apparent distress Cardiovascular: normal rate, regular rhythm Respiratory/Chest: lungs clear Abdomen: non tender, soft, no organomegaly Extremities: non-pitting Neurologic: alert, oriented x 3 RO HUTTON Aug 21, 2016 10:50
--- NOTE | 2016-08-21 11:18 | General Progress Note ---
Assessment/Plan Assessment/Plan (1) Lumbar DDD (2) Lumbar Spondylosis (3) Lumbar Radiculopathy (4) Lumbar Herniated disc (5) Multiple Joint OA (6) B/L knee pain Pt will be continued on Morphine and [place]. Pt was d/w Dr. Link and he concurred. Subjective Date patient seen: Aug 21, 2016 Time patient seen: 10:00 - am Allergies: Coded Allergies: HALOPERIDOL (Verified Allergy, Mild, [place] really bad, 07/05/16) Makes him irritable. THIORIDAZINE (Verified Allergy, Mild, [place] really bad, 07/05/16) Makes him violent TRAZODONE (Verified Allergy, Mild, [place] really bad, 07/05/16) Too strong; inability to move. Uncoded Allergies: PSYCHOTROPIC MEDICATION (Allergy, Mild, 08/13/14) Subjective Constitutional: Reports: weakness, Denies: chills, diaphoresis, fever, malaise , no symptoms, other HEENT: Denies: blurred vision, double vision, ear discharge, ear pain, eye pain , mouth pain, mouth swelling, no symptoms, nose congestion, nose pain, other, tearing, throat pain, throat swelling Cardiovascular: Denies: chest pain, edema, irregular heart rate, lightheadedness, no symptoms, other, palpitations, syncope Respiratory: Denies: SOB at rest, SOB with excertion, cough, no symptoms, orthopnea, other, shortness of breath, sputum, stridor, wheezing Gastrointestinal/Abdominal: Denies: abdomen distended, abdominal pain, black stools, blood in stool, constipated, diarrhea, difficulty swallowing, nausea, no symptoms, other, poor appetite, poor fluid intake, rectal bleeding, tarry stools, vomiting Genitourinary: Denies: burning, discharge, flank pain, frequency, hematuria, incontinence, no symptoms, other, pain, urgency Neurologic/Psychiatric: Reports: weakness, Denies: anxiety, depressed, emotional problems, headache, no symptoms, numbness, other, paresthesia, pre- existing deficit, seizure, tingling, tremors Endocrine: Denies: excessive sweating, flushing, increased hunger, increased thirst, increased urine, intolerance to cold, intolerance to heat, no symptoms, other, unexplained weight gain, unexplained weight loss Hematologic/Lymphatic: Denies: anemia, easy bleeding, easy bruising, no symptoms, other Subjective Patient is laying in bed no signs of pain or distress. His pain has been tolerated on the Morphine and [place]. Objective Last 24 Hour Vital Signs Date Time Temp Pulse Resp B/P Pulse Ox O2 Delivery O2 Flow Rate FiO2 08/21/16 08:27 152/95 08/21/16 08:00 97.7 65 18 149/79 100 Room Air 08/21/16 04:00 97.0 57 20 152/95 100 Room Air 08/21/16 00:00 97.5 64 20 156/92 99 Room Air 08/20/16 20:00 98.1 72 20 131/69 99 Room Air 08/20/16 18:00 98.0 08/20/16 16:00 98.0 64 18 146/83 99 Room Air 08/20/16 12:00 97.2 63 18 147/81 100 Room Air Intake and Output 08/20/16 08/21/16 19:00 07:00 Intake Total 1220 ml 630 ml Output Total 450 ml Balance 1220 ml 180 ml Intake Oral 800 ml IV Total 420 ml 630 ml Output Urine Total 450 ml # Voids 5 Laboratory Tests 08/21/16 06:10: White Blood Count 3.1L, Red Blood Count 3.11L, Hemoglobin 8.5L, Hematocrit 27.8L , Mean Corpuscular Volume 89, Mean Corpuscular Hemoglobin 27.4, Mean Corpuscular Hemoglobin Concent 30.7L, Red Cell Distribution Width 16.3H, Platelet Count 171, Mean Platelet Volume 6.8, Neutrophils (%) (Auto) , Lymphocytes (%) (Auto) , Monocytes (%) (Auto) , Eosinophils (%) (Auto) , Basophils (%) (Auto) , Differential Total Cells Counted 100, Neutrophils % ( Manual) 62, Lymphocytes % (Manual) 24, Monocytes % (Manual) 8, Eosinophils % ( Manual) 6H, Basophils % (Manual) 0, Band Neutrophils 0, Platelet Estimate Adequate, Platelet Morphology Normal, Hypochromasia 1+, Anisocytosis 1+, Sodium Level 141, Potassium Level 4.0, Chloride Level 109H, Carbon Dioxide Level 23, Anion Gap 9, Blood Urea Nitrogen 17, Creatinine 1.2, Estimat Glomerular Filtration Rate > 60, Glucose Level 112H, Calcium Level 9.0 Height (Feet): 5 Height (Inches): 9.00 Weight (Pounds): 167 Objective General Appearance: no apparent distress, alert EENT: PERRL/EOMI, normal ENT inspection Neck: non-tender, normal alignment Cardiovascular: normal rate, regular rhythm Respiratory/Chest: decreased breath sounds Abdomen: non tender, soft Extremities: non-tender Edema: no edema noted Arm (L), no edema noted Arm (R), no edema noted Leg (L), no edema noted Leg (R), no edema noted Pedal (L), no edema noted Pedal (R), no edema noted Generalized Neurologic: alert, oriented x 3 Skin: warm/dry VICTOR M FLORES Aug 21, 2016 11:18
[2016-08-21] MEDS ORDERED: Norco 10mg/325mg tab ORAL PRN (11:30)
[2016-08-21 12:00] VITALS: BP 142/79
[2016-08-21] MEDS ORDERED: Bisacodyl EC 5mg tab ORAL ONE (12:00)
[2016-08-21] MEDS: Mylanta II UD 30ml ORAL PRN (12:18)
[2016-08-21] MEDS: Morphine Sulfate 2mg/ml Inj IVP PRN (13:23)
[2016-08-21] MEDS: LORazepam 1mg tab ORAL PRN (14:22)
[2016-08-21] MEDS ORDERED: Nulytely 4L ORAL ONE (15:00)
--- NOTE | 2016-08-21 15:38 | Pulmonology Progress Note ---
Assessment/Plan Problems: (1) Hypotension (2) GERSON (acute kidney injury) (3) Anemia (4) Prostate cancer (5) Chronic low back pain (6) Seizure disorder Assessment/Plan GI w/u in [place] check electrolytes pain management pt/ot social insurance specialist all notes and labs reviewed renal function improving Subjective ROS Limited/Unobtainable: No Allergies: Coded Allergies: HALOPERIDOL (Verified Allergy, Mild, [place] really bad, 07/05/16) Makes him irritable. THIORIDAZINE (Verified Allergy, Mild, [place] really bad, 07/05/16) Makes him violent TRAZODONE (Verified Allergy, Mild, [place] really bad, 07/05/16) Too strong; inability to move. Uncoded Allergies: PSYCHOTROPIC MEDICATION (Allergy, Mild, 08/13/14) Objective Last 24 Hour Vital Signs Date Time Temp Pulse Resp B/P Pulse Ox O2 Delivery O2 Flow Rate FiO2 08/21/16 13:53 98.0 08/21/16 12:00 98.0 68 18 142/79 100 Room Air 08/21/16 08:27 152/95 08/21/16 08:00 97.7 65 18 149/79 100 Room Air 08/21/16 04:00 97.0 57 20 152/95 100 Room Air 08/21/16 00:00 97.5 64 20 156/92 99 Room Air 08/20/16 20:00 98.1 72 20 131/69 99 Room Air 08/20/16 18:00 98.0 08/20/16 16:00 98.0 64 18 146/83 99 Room Air Intake and Output 08/20/16 08/21/16 19:00 07:00 Intake Total 1220 ml 630 ml Output Total 450 ml Balance 1220 ml 180 ml Intake Oral 800 ml IV Total 420 ml 630 ml Output Urine Total 450 ml # Voids 5 Objective General Appearance: WD/WN HEENT: normocephalic Respiratory/Chest: chest wall non-tender, lungs clear Cardiovascular: normal peripheral pulses, normal rate Abdomen: normal bowel sounds, soft, non tender Extremities: no cyanosis, other - effusion in both knees Skin: no rash Microbiology Date/Time Source Procedure Growth Status 08/19/16 06:10 Blood Blood Culture - Preliminary NO GROWTH AFTER 48 HOURS Resulted 08/19/16 05:55 Blood Blood Culture - Preliminary NO GROWTH AFTER 48 HOURS Resulted 08/18/16 21:30 Nasal Nares MRSA Culture - Final NO METHICILLIN RESISTANT STAPH AUREUS... Complete 08/18/16 21:30 Rectum VRE Culture - Final Enterococcus Faecium - Vre Complete Laboratory Tests 08/21/16 06:10: White Blood Count 3.1L, Red Blood Count 3.11L, Hemoglobin 8.5L, Hematocrit 27.8L , Mean Corpuscular Volume 89, Mean Corpuscular Hemoglobin 27.4, Mean Corpuscular Hemoglobin Concent 30.7L, Red Cell Distribution Width 16.3H, Platelet Count 171, Mean Platelet Volume 6.8, Neutrophils (%) (Auto) , Lymphocytes (%) (Auto) , Monocytes (%) (Auto) , Eosinophils (%) (Auto) , Basophils (%) (Auto) , Differential Total Cells Counted 100, Neutrophils % ( Manual) 62, Lymphocytes % (Manual) 24, Monocytes % (Manual) 8, Eosinophils % ( Manual) 6H, Basophils % (Manual) 0, Band Neutrophils 0, Platelet Estimate Adequate, Platelet Morphology Normal, Hypochromasia 1+, Anisocytosis 1+, Sodium Level 141, Potassium Level 4.0, Chloride Level 109H, Carbon Dioxide Level 23, Anion Gap 9, Blood Urea Nitrogen 17, Creatinine 1.2, Estimat Glomerular Filtration Rate > 60, Glucose Level 112H, Calcium Level 9.0 Current Medications Medications (Trade) Dose Ordered Sig/Jesi Route PRN Reason Start Time Stop Time Status Last Admin Dose Admin Acetaminophen (Tylenol) 650 mg Q4H PRN ORAL fever 08/19/16 21:05 09/18/16 21:04 Acetaminophen/ Hydrocodone Bitart ([place] 10/325) 1 ea Q4H PRN ORAL For moderate Pain 08/21/16 11:30 08/28/16 11:29 Al Hydroxide/Mg Hydroxide (Mylanta II) 30 ml Q6H PRN ORAL dyspepsia 08/19/16 21:05 09/18/16 21:04 08/21/16 12:18 Alprazolam (Xanax) 2 mg Q12HR ORAL 08/20/16 21:00 08/27/16 20:59 08/21/16 08:27 Buspirone HCl 10 mg 10 mg BID ORAL 08/20/16 18:00 09/19/16 17:59 08/21/16 08:27 Dextrose (Dextrose 50%) STAT PRN IV Hypoglycemia 08/19/16 21:06 09/18/16 21:05 Heparin Sodium (Porcine) (Heparin 5000 units/ml) 5,000 units EVERY 12 HOURS SUBQ 08/19/16 21:30 09/18/16 21:29 08/20/16 20:39 Iron Sucrose/ Sodium Chloride (Venofer/Sodium Chloride) 60 ml @ 240 mls/hr BEDTIME IVPB 08/21/16 21:00 08/25/16 21:14 Levetiracetam (Keppra) 1,500 mg Q12HR ORAL 08/19/16 21:30 09/18/16 21:29 08/21/16 08:28 Lisinopril (Zestril) 10 mg DAILY ORAL 08/20/16 09:00 09/19/16 08:59 08/21/16 08:27 Lorazepam (Ativan 2mg/ml 1ml) 2 mg Q1H PRN IV seizures 08/19/16 21:06 08/26/16 21:05 08/19/16 22:20 Lorazepam (Ativan) 1 mg Q6H PRN ORAL For Anxiety 08/19/16 21:06 08/26/16 21:05 08/21/16 14:22 Morphine Sulfate (Morphine Sulfate) 1 mg Q4H PRN IVP For severe Pain 08/21/16 13:12 08/28/16 13:11 08/21/16 13:23 Ondansetron HCl (Zofran) 4 mg Q6H PRN IVP Nausea & Vomiting 08/19/16 21:07 09/18/16 21:06 Pantoprazole (Protonix) 40 mg EVERY 12 HOURS ORAL 08/21/16 09:00 09/20/16 08:59 08/21/16 08:35 Polyethylene Glycol (Miralax) 17 gm HSPRN PRN ORAL Constipation 08/19/16 21:07 09/18/16 21:06 Sodium Chloride (Sodium Chloride 1000ml bag) 1,000 ml @ 70 mls/hr [id number] IV 08/20/16 14:00 09/19/16 13:59 08/21/16 08:36 Zolpidem Tartrate 5 mg 5 mg HSPRN PRN ORAL Insomnia 08/19/16 21:07 09/18/16 21:06 08/20/16 22:56 LAQUITA VAZQUEZ Aug 21, 2016 15:38
[2016-08-21 16:00] VITALS: BP 142/79
--- NOTE | 2016-08-21 16:20 | Cardiology Progress Note ---
Assessment/Plan Problem List: (1) Rhabdomyolysis (2) Hypernatremia (3) GERSON (acute kidney injury) (4) Hypotension (5) Seizure disorder Status: stable, progressing Status Narrative Mr. Porras is stable, transferred from telemetry on 08/20 No arrhythmia sx. Hx of SVT on adm remains hypertensive Renal parameters improved w/ hydration Assessment/Plan Continue current meds. Would avoid aggressive antihypertensive rx, as pt w/ hypotension in past poss causing azotemia continue iv hydration Subjective ROS Limited/Unobtainable: No Subjective Cardiology for Dr. Landrum Mr Porras has no c/o CP, palpitations or dyspnea. Objective Last 24 Hour Vital Signs Date Time Temp Pulse Resp B/P Pulse Ox O2 Delivery O2 Flow Rate FiO2 08/21/16 13:53 98.0 08/21/16 12:00 98.0 68 18 142/79 100 Room Air 08/21/16 08:27 152/95 08/21/16 08:00 97.7 65 18 149/79 100 Room Air 08/21/16 04:00 97.0 57 20 152/95 100 Room Air 08/21/16 00:00 97.5 64 20 156/92 99 Room Air 08/20/16 20:00 98.1 72 20 131/69 99 Room Air 08/20/16 18:00 98.0 General Appearance: WD/WN, no apparent distress, alert Neck: no JVD Rhythm: NSR Cardiovascular: normal rate, regular rhythm, no gallop/murmur Respiratory/Chest: lungs clear Abdomen: non tender, soft, no mass Extremities: no swelling Intake and Output 08/20/16 08/21/16 19:00 07:00 Intake Total 1220 ml 630 ml Output Total 450 ml Balance 1220 ml 180 ml Intake Oral 800 ml IV Total 420 ml 630 ml Output Urine Total 450 ml # Voids 5 Laboratory Tests Test 08/21/16 06:10 White Blood Count 3.1 K/UL (4.8-10.8) L Red Blood Count 3.11 M/UL (4.70-6.10) L Hemoglobin 8.5 G/DL (14.2-18.0) L Hematocrit 27.8 % (42.0-52.0) L Mean Corpuscular Volume 89 FL (80-99) Mean Corpuscular Hemoglobin 27.4 PG (27.0-31.0) Mean Corpuscular Hemoglobin Concent 30.7 G/DL (32.0-36.0) L Red Cell Distribution Width 16.3 % (11.6-14.8) H Platelet Count 171 K/UL (150-450) Mean Platelet Volume 6.8 FL (6.5-10.1) Neutrophils (%) (Auto) % (45.0-75.0) Lymphocytes (%) (Auto) % (20.0-45.0) Monocytes (%) (Auto) % (1.0-10.0) Eosinophils (%) (Auto) % (0.0-3.0) Basophils (%) (Auto) % (0.0-2.0) Differential Total Cells Counted 100 Neutrophils % (Manual) 62 % (45-75) Lymphocytes % (Manual) 24 % (20-45) Monocytes % (Manual) 8 % (1-10) Eosinophils % (Manual) 6 % (0-3) H Basophils % (Manual) 0 % (0-2) Band Neutrophils 0 % (0-8) Platelet Estimate Adequate Platelet Morphology Normal Hypochromasia 1+ Anisocytosis 1+ Sodium Level 141 mEQ/L (135-145) Potassium Level 4.0 mEQ/L (3.4-4.9) Chloride Level 109 mEQ/L (98-107) H Carbon Dioxide Level 23 mEQ/L (20-30) Anion Gap 9 (5-15) Blood Urea Nitrogen 17 mg/dL (7-23) Creatinine 1.2 mg/dL (0.7-1.2) Estimat Glomerular Filtration Rate > 60 mL/min (>60) Glucose Level 112 mg/dL (74-106) H Calcium Level 9.0 mg/dL (8.6-10.2) Microbiology Date/Time Source Procedure Growth Status 08/19/16 06:10 Blood Blood Culture - Preliminary NO GROWTH AFTER 48 HOURS Resulted 08/19/16 05:55 Blood Blood Culture - Preliminary NO GROWTH AFTER 48 HOURS Resulted 08/18/16 21:30 Nasal Nares MRSA Culture - Final NO METHICILLIN RESISTANT STAPH AUREUS... Complete 08/18/16 21:30 Rectum VRE Culture - Final Enterococcus Faecium - Vre Complete DENNIS ABDULLAHI Aug 21, 2016 16:20
--- NOTE | 2016-08-21 17:05 | Cardiology Report ---
APPROVED REPORT EXAM: Two-dimensional and M-mode echocardiogram with Doppler and color Doppler. INDICATION Chest Pain M-Mode DIMENSIONS IVSd1.0 (0.7-1.1cm)Left Atrium (MM)4.3 (1.6-4.0cm) LVDd5.4 (3.5-5.6cm)Aortic Root3.0 (2.0-3.7cm) PWd1.2 (0.7-1.1cm)Aortic Cusp Exc.1.7 (1.5-2.0cm) LVDs3.6 (2.5-4.0cm) PWs1.3 cm Normal left ventricular chamber size, systolic function and wall motion. Left ventricular ejection fraction estimated to be 55-60%. No evidence of left ventricular hypertrophy. No evidence of pericardial fat or effusion. Mild bi-atrial enlargement by 2D. Mild focal aortic valve sclerosis with adequate cusp excursion Thickened mitral valve leaflets with normal excursion. Mitral annulus and aortic root calcification. Pulmonic valve is well visualized. Normal tricuspid valve structure. IVC is normal in size with physiologic collapse. A color flow and spectral Doppler study was performed and revealed: Trace aortic regurgitation. No mitral regurgitation. Normal left ventricular diastolic function. Mild tricuspid regurgitation. Tricuspid systolic velocities suggests peak right ventricular systolic pressure of 38 mmHg Consistent with mild pulmonary hypertension. Pulmonic regurgitation present.
--- NOTE | 2016-08-21 17:54 | Cardiology Report ---
APPROVED REPORT EKG Measurement Heart [id number] Normal sinus rhythm Anterior infarct, age undetermined Abnormal ECG
[2016-08-21 20:00] VITALS: BP 151/79
[2016-08-21] MEDS ORDERED: Iron Sucrose 100 MG in NS 55 ML IVPB SCH (21:00)
[2016-08-22] VITALS (10 sets, daily range): BP systolic 122–178; BP diastolic 73–91
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
[2016-08-22 07:25] LABS: MEAN CORPUSCULAR HEMOGLOBIN 27.3 PG (27.0-31.0); MEAN CORPUSCULAR VOLUME 88 FL (80-99); MEAN PLATELET VOLUME 6.8 FL (6.5-10.1); PLATELET COUNT 193 K/UL (150-450); RED BLOOD COUNT 3.26 M/UL (4.70-6.10); RED CELL DISTRIBUTION WIDTH 16.2 % (11.6-14.8); WHITE BLOOD COUNT 2.7 K/UL (4.8-10.8)
[2016-08-22 07:46] LABS: ANION GAP 11 (5-15); CALCIUM 9.3 mg/dL (8.6-10.2); CARBON DIOXIDE 22 mEQ/L (20-30); CHLORIDE 107 mEQ/L (98-107); CREATININE 1.1 mg/dL (0.7-1.2); GLOMERULAR FILTRATION RATE > 60 mL/min (>60); HEMOLYSIS 6; POTASSIUM 3.9 mEQ/L (3.4-4.9); SODIUM 140 mEQ/L (135-145)
--- NOTE | 2016-08-22 08:30 | General Progress Note ---
Assessment/Plan Assessment/Plan (1) Lumbar DDD (2) Lumbar Spondylosis (3) Lumbar Radiculopathy (4) Lumbar Herniated disc (5) Multiple Joint OA (6) B/L knee pain Pt will be continued on Morphine and Morgan. A RX for Morgan 10/325mg 20 tabs was written for patient in anticipation for discharge. Pt was d/w Dr. Link and he concurred. Subjective Date patient seen: Aug 22, 2016 Time patient seen: 06:15 - am Allergies: Coded Allergies: HALOPERIDOL (Verified Allergy, Mild, [place] really bad, 07/05/16) Makes him irritable. THIORIDAZINE (Verified Allergy, Mild, [place] really bad, 07/05/16) Makes him violent TRAZODONE (Verified Allergy, Mild, [place] really bad, 07/05/16) Too strong; inability to move. Uncoded Allergies: PSYCHOTROPIC MEDICATION (Allergy, Mild, 08/13/14) Subjective Constitutional: Reports: weakness, Denies: chills, diaphoresis, fever, malaise , no symptoms, other HEENT: Denies: blurred vision, double vision, ear discharge, ear pain, eye pain , mouth pain, mouth swelling, no symptoms, nose congestion, nose pain, other, tearing, throat pain, throat swelling Cardiovascular: Denies: chest pain, edema, irregular heart rate, lightheadedness, no symptoms, other, palpitations, syncope Respiratory: Denies: SOB at rest, SOB with excertion, cough, no symptoms, orthopnea, other, shortness of breath, sputum, stridor, wheezing Gastrointestinal/Abdominal: Denies: abdomen distended, abdominal pain, black stools, blood in stool, constipated, diarrhea, difficulty swallowing, nausea, no symptoms, other, poor appetite, poor fluid intake, rectal bleeding, tarry stools, vomiting Genitourinary: Denies: burning, discharge, flank pain, frequency, hematuria, incontinence, no symptoms, other, pain, urgency Neurologic/Psychiatric: Reports: weakness, Denies: anxiety, depressed, emotional problems, headache, no symptoms, numbness, other, paresthesia, pre- existing deficit, seizure, tingling, tremors Endocrine: Denies: excessive sweating, flushing, increased hunger, increased thirst, increased urine, intolerance to cold, intolerance to heat, no symptoms, other, unexplained weight gain, unexplained weight loss Hematologic/Lymphatic: Denies: anemia, easy bleeding, easy bruising, no symptoms, other Subjective Patient is reporting that his pain has been tolerated on the medication and is looking forward to being discharged home later today 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 Objective Last 24 Hour Vital Signs Date Time Temp Pulse Resp B/P Pulse Ox O2 Delivery O2 Flow Rate FiO2 08/22/16 07:58 97.4 56 19 146/82 98 Room Air 08/22/16 04:00 97.5 52 18 178/87 Room Air 08/22/16 00:00 97.7 63 18 135/79 100 Room Air 08/21/16 20:00 97.9 59 18 151/79 Room Air 08/21/16 16:00 98.0 70 18 142/79 99 Room Air 08/21/16 13:53 98.0 08/21/16 12:00 98.0 68 18 142/79 100 Room Air Bad tableLaboratory Tests 08/22/16 06:00: White Blood Count 2.7L, Red Blood Count 3.26L, Hemoglobin 8.9L, Hematocrit 28.8L , Mean Corpuscular Volume 88, Mean Corpuscular Hemoglobin 27.3, Mean Corpuscular Hemoglobin Concent 31.0L, Red Cell Distribution Width 16.2H, Platelet Count 193, Mean Platelet Volume 6.8, Neutrophils (%) (Auto) , Lymphocytes (%) (Auto) , Monocytes (%) (Auto) , Eosinophils (%) (Auto) , Basophils (%) (Auto) , Neutrophils % (Manual) [Pending], Lymphocytes % (Manual) [Pending], Platelet Estimate [Pending], Platelet Morphology [Pending], Sodium Level 140, Potassium Level 3.9, Chloride Level 107, Carbon Dioxide Level 22, Anion Gap 11, Blood Urea Nitrogen 12, Creatinine 1.1, Estimat Glomerular Filtration Rate > 60, Glucose Level 91, Calcium Level 9.3 Height (Feet): 5 Height (Inches): 5.00 Weight (Pounds): 167 Objective General Appearance: no apparent distress, alert EENT: PERRL/EOMI, normal ENT inspection Neck: non-tender, normal alignment Cardiovascular: normal rate, regular rhythm Respiratory/Chest: decreased breath sounds Abdomen: non tender, soft Extremities: non-tender Edema: no edema noted Arm (L), no edema noted Arm (R), no edema noted Leg (L), no edema noted Leg (R), no edema noted Pedal (L), no edema noted Pedal (R), no edema noted Generalized Neurologic: alert, oriented x 3 Skin: warm/dry VICTOR M FLORES Aug 22, 2016 08:30
[2016-08-22] MEDS: ALPRAZolam 0.25mg tab ORAL SCH (08:36)
[2016-08-22] MEDS: Lisinopril 10mg tab ORAL SCH (08:36)
[2016-08-22] MEDS: BusPIRone 10mg Tab ORAL SCH ×2 (08:36→18:15)
--- NOTE | 2016-08-22 08:39 | Diagnostic Imaging Report ---
Indications: Elevated renal function tests, acute renal failure Technique: Transabdominal real-time grayscale and duplex Doppler imaging of the kidneys, retroperitoneum, and urinary bladder was performed Findings: Comparison: None Right kidney measures 9.8 cm in length. Normal contour, echotexture, cortical thickness. The millimeters circumscribed anechoic focus lower pole cortex. Suggestion of small linear echogenic non-shadowing focus lower pole cortical that sinus junction. No additional focal lesions, hydronephrosis, or obvious perinephric abnormalities. Left kidney measures 10.1 cm in length. Normal contour, echotexture, cortical thickness. No stones, other focal lesions, hydronephrosis, or obvious perinephric abnormalities. The intrahepatic portion of inferior vena cava is patent and normal caliber. The urinary bladder is moderately distended. Prostate heterogeneous, estimated volume 71 mL.. IMPRESSION: Small right renal cortical cyst Questionable small right renal nonobstructing, non-shadowing stone versus other nonspecific specular reflector Otherwise sonographically unremarkable kidneys Prostate gland enlargement
[2016-08-22] MEDS: Heparin 5000 units/ml inj SUBQ SCH (09:00)
--- NOTE | 2016-08-22 09:15 | Consultation ---
DATE OF CONSULTATION: 08/19/2016 HISTORY OF PRESENT ILLNESS: This is a 70-year-old male patient, who was admitted to the hospital at [facility]. This patient was admitted to the hospital secondary to acute renal failure. However, the patient also has low blood pressure, intractable pain, and seizure disorder. He is actually seen in bed and he has seizure disorder, chronic renal insufficiency, but mostly low blood pressure, seizure disorder, and intractable pain was reason for admission. However, the patient is being psychiatric consultation requested. MEDICAL HISTORY: Seizure disorder, renal insufficiency, and anemia. ALLERGIES: No known drug allergies. SOCIAL HISTORY: The patient is financially supported by [employer] and Medicare. SUBSTANCE ABUSE HISTORY: He has history of alcohol use, but denies drug use. MENTAL STATUS EXAMINATION: The patient is a 70-year-old male with psychomotor agitation. Mood is irritable and agitated. Affect is guarded and restricted. Thought process is disorganized and logical. He . He denies any homicidal ideations. Insight and judgment is poor. DIAGNOSIS: Major depressive disorder, rule out generalized anxiety disorder. PLAN: Plan for this patient is to treat him with psychotropic medication regimen of Neurontin 300 mg three times a day as well as BuSpar 10 mg twice a day and Xanax 2 mg q.6 h. as needed. BuSpar and Ativan as needed and continued to be followed by Psychiatry throughout his hospital course. Chart is reviewed and discussed with staff. The patient is seen and assessed at bedside. I would like to thank, Dr. Bobby Isbell, for this interesting consultation. Chart reviewed and discussed with staff. Jj Gill M.D. DR: KENDRICK JOB#: [id number] CC:
--- NOTE | 2016-08-22 10:00 | Progress Note ---
DATE: 08/22/2016 SUBJECTIVE: The patient has clinically hypertension, pain disorder, and seizure disorder. Continue treatment with BuSpar 10 mg twice a day, Xanax 2 mg twice a day to reduce anxiety, but irritation. I am also going to add a dose of Neurontin 300 mg three times a day to reduce the patient's anxiety and also provide some pain prophylaxis and continued to be followed by Psychiatry throughout his hospital course. Chart reviewed and discussed with staff. Seen and assessed at the bedside. I would like to thank, Dr. Bobby Isbell, for this interesting consultation. . Jj Gill M.D. DR: KENDRICK JOB#: [id number] CC:
--- NOTE | 2016-08-22 10:00 | Progress Note ---
DATE: 08/20/2016 SUBJECTIVE: The patient has renal failure, hypertension, and pain disorder. Continue treatment with BuSpar 10 mg twice a day and Xanax 2 mg q.12 h. Chart is reviewed and discussed with staff. He was seen and assessed at bedside. Supportive therapy provided. Jj Gill M.D. DR: KENDRICK JOB#: [id number] CC:
[2016-08-22 10:04] LABS: ANISOCYTOSIS 1+; BAND NEUTROPHILS % (MANUAL) 0 % (0-8); BASOPHILS % (MANUAL) 0 % (0-2); EOSINOPHILS % (MANUAL) 2 % (0-3); HYPOCHROMASIA 1+; LYMPHOCYTES % (MANUAL) 30 % (20-45); NEUTROPHILS % (MANUAL) 61 % (45-75); PLATELET ESTIMATE ADEQUATE; PLATELET MORPHOLOGY NORMAL; TOTAL CELLS COUNTED 100
--- NOTE | 2016-08-22 10:30 | Progress Note ---
DATE: 08/21/2016 SUBJECTIVE: The patient has renal failure, hypertension, pain disorder, seizure disorder. Still has generalized anxiety. PLAN: Plan is to continue BuSpar 10 mg twice a day and Xanax 2 mg q.12 h. He was seen and assessed at bedside. Chart is reviewed and discussed with staff. Supportive therapy provided. Jj Gill M.D. DR: BRIE JOB#: [id number] CC:
--- NOTE | 2016-08-22 10:41 | Pre-Procedure Note/Attestation ---
Pre-Procedure Note/Attestation Complete Prior to Procedure Planned Procedure: not applicable Procedure Narrative: egd/colon Indications for Procedure Pre-Operative Diagnosis: anemia Attestation I attest that I discussed the nature of the procedure; its benefits; risks and complications; and alternatives (and the risks and benefits of such alternatives ), prior to the procedure, with the patient (or the patient's legal operations representative). I attest that, if there was a reasonable possibility of needing a blood transfusion, the patient (or the patient's legal operations representative) was given the [facility] standardized written summary, pursuant to the [place] Blood Safety Act ([place] Health and Safety Code # 1645, as amended). I attest that I re-evaluated the patient just prior to the surgery and that there has been no change in the patient's H&P, except as documented below: CHRIS TAO Aug 22, 2016 10:41
--- NOTE | 2016-08-22 11:16 | Anethesia Preoperative Eval ---
Anesthesia Pre-op PMH/ROS General Date of Evaluation: Aug 22, 2016 Time of Evaluation: 06:45 Anesthesiologist: janell ASA Score: ASA 3 Mallampati Score Class I : Soft palate, uvula, fauces, pillars visible Class II: Soft palate, uvula, fauces visible Class III: Soft palate, base of uvula visible Class IV: Only hard plate visible Mallampati Classification: Class II Surgeon: sherrell Diagnosis: anemia Surgical Procedure: egd/colonoscopy Anesthesia History: none Social History: smoking - nonsmoker Family History: no anesthesia problems Allergies: Coded Allergies: HALOPERIDOL (Verified Allergy, Mild, [place] really bad, 07/05/16) Makes him irritable. THIORIDAZINE (Verified Allergy, Mild, [place] really bad, 07/05/16) Makes him violent TRAZODONE (Verified Allergy, Mild, [place] really bad, 07/05/16) Too strong; inability to move. Uncoded Allergies: PSYCHOTROPIC MEDICATION (Allergy, Mild, 08/13/14) Medications: see eMAR Past Medical History Cardiovascular: Reports: HTN Pulmonary: Reports: asthma Gastrointestinal/Genitourinary: Reports: GERD Neurologic/Psychiatric: Reports: depression/anxiety, other - seizures Hematology/Immune: Reports: anemia Anesthesia Pre-op Phys. Exam Physician Exam Last Vital Signs Date Time Temp Pulse Resp B/P Pulse Ox O2 Delivery O2 Flow Rate FiO2 08/22/16 08:36 146/82 08/22/16 07:58 97.4 56 19 98 Room Air Constitutional: NAD Neurologic: other Cardiovascular: RRR Respiratory: CTA Gastrointestinal: S/NT/ND Airway Exam Mallampati Score: Class II MO: full Neck: supple TMD: 3fb ROM: full Teeth: intact Anesthesia Pre-op A/P Labs Hematology Test 08/22/16 06:00 White Blood Count 2.7 K/UL (4.8-10.8) L Red Blood Count 3.26 M/UL (4.70-6.10) L Hemoglobin 8.9 G/DL (14.2-18.0) L Hematocrit 28.8 % (42.0-52.0) L Mean Corpuscular Volume 88 FL (80-99) Mean Corpuscular Hemoglobin 27.3 PG (27.0-31.0) Mean Corpuscular Hemoglobin Concent 31.0 G/DL (32.0-36.0) L Red Cell Distribution Width 16.2 % (11.6-14.8) H Platelet Count 193 K/UL (150-450) Mean Platelet Volume 6.8 FL (6.5-10.1) Neutrophils (%) (Auto) % (45.0-75.0) Lymphocytes (%) (Auto) % (20.0-45.0) Monocytes (%) (Auto) % (1.0-10.0) Eosinophils (%) (Auto) % (0.0-3.0) Basophils (%) (Auto) % (0.0-2.0) Differential Total Cells Counted 100 Neutrophils % (Manual) 61 % (45-75) Lymphocytes % (Manual) 30 % (20-45) Monocytes % (Manual) 7 % (1-10) Eosinophils % (Manual) 2 % (0-3) Basophils % (Manual) 0 % (0-2) Band Neutrophils 0 % (0-8) Platelet Estimate Adequate Platelet Morphology Normal Hypochromasia 1+ Anisocytosis 1+ Chemistry Test 08/22/16 06:00 Sodium Level 140 mEQ/L (135-145) Potassium Level 3.9 mEQ/L (3.4-4.9) Chloride Level 107 mEQ/L (98-107) Carbon Dioxide Level 22 mEQ/L (20-30) Anion Gap 11 (5-15) Blood Urea Nitrogen 12 mg/dL (7-23) Creatinine 1.1 mg/dL (0.7-1.2) Estimat Glomerular Filtration Rate > 60 mL/min (>60) Glucose Level 91 mg/dL (74-106) Calcium Level 9.3 mg/dL (8.6-10.2) Risk Assessment & Plan Assessment: anemia Plan: egd/colonoscopy Status Change Before Surgery: No Pre-Antibiotics Drug: YANA Mcneil Aug 22, 2016 11:16
[2016-08-22] MEDS ORDERED: DiphenhydrAMINE 50mg/ml Inj IVP PRN (11:30)
[2016-08-22] MEDS ORDERED: Atropine Inj 1mg/10ml Syr IV PRN (11:30)
[2016-08-22] MEDS ORDERED: Hydromorphone 0.5mg/0.5ml inj IVP PRN (11:30)
[2016-08-22] MEDS ORDERED: Midazolam 2mg/2ml Inj IVP PRN (11:30)
--- NOTE | 2016-08-22 12:03 | Cardiology Report ---
APPROVED REPORT EKG Measurement Heart [id number] Normal sinus rhythm Normal ECG
--- NOTE | 2016-08-22 12:08 | Immediate Post-Op Evaluation ---
Immediate Post-Op Evalulation Immediate Post-Op Evalulation Procedure: egd/colonoscopy Date of Evaluation: Aug 22, 2016 Time of Evaluation: 11:45 IV Fluids: 0.9ns 150ml Blood Products: none Estimated Blood Loss: negligible Blood Pressure Systolic: 169 Blood Pressure Diastolic: 87 Pulse Rate: 48 Respiratory Rate: 18 O2 Sat by Pulse Oximetry: 100 Temperature (Fahrenheit): 97.4 Pain Score (1-10): 0 Nausea: No Vomiting: No Complications none Patient Status: awake, reacts, patent Hydration Status: adequate Drug: YANA Mcneil Aug 22, 2016 12:08
--- NOTE | 2016-08-22 12:54 | Endoscopy Procedure Note ---
Endoscopy Procedure Note Indication for Procedure: anemia Procedures Performed: EGD, colonoscopy Operative Findings/Diagnosis: gastritis, esophagitis Specimen: yes Pt Tolerated Procedure Well: Yes Estimated Blood Loss: none Anesthesiologist: fariba Anesthesia: MAC Implant(s) used?: No 50 yrs or older w/o bx or poly: Not Applicable 10yrs. F/U not recommended: Not Applicable CHRIS TAO Aug 22, 2016 12:54
[2016-08-22] MEDS: Sucralfate 1gm tab ORAL SCH ×2 (13:25→18:15)
[2016-08-22] MEDS: Morphine Sulfate 2mg/ml Inj IVP PRN (13:26)
--- NOTE | 2016-08-22 14:51 | Pulmonology Progress Note ---
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 THIORIDAZINE (Verified Allergy, Mild, [place] really bad, 07/05/16) Makes him violent TRAZODONE (Verified Allergy, Mild, [place] really bad, 07/05/16) Too strong; inability to move. Uncoded Allergies: PSYCHOTROPIC MEDICATION (Allergy, Mild, 08/13/14) Objective Last 24 Hour Vital Signs Date Time Temp Pulse Resp B/P Pulse Ox O2 Delivery O2 Flow Rate FiO2 08/22/16 12:20 97.8 68 20 150/86 97 Room Air 08/22/16 12:08 48 18 100 08/22/16 11:50 98.0 53 20 170/85 100 Room Air 08/22/16 11:48 48 20 169/87 100 Room Air 08/22/16 11:39 58 20 163/90 100 Nasal Cannula 3.0 08/22/16 11:34 58 20 141/86 100 Nasal Cannula 3.0 08/22/16 11:29 97.4 58 20 142/91 100 Nasal Cannula 3.0 08/22/16 08:36 146/82 08/22/16 07:58 97.4 56 19 146/82 98 Room Air 08/22/16 04:00 97.5 52 18 178/87 Room Air 08/22/16 00:00 97.7 63 18 135/79 100 Room Air 08/21/16 20:00 97.9 59 18 151/79 Room Air 08/21/16 16:00 98.0 70 18 142/79 99 Room Air Bad tableObjective General Appearance: WD/WN HEENT: normocephalic Respiratory/Chest: chest wall non-tender, lungs clear Cardiovascular: normal peripheral pulses, normal rate Abdomen: normal bowel sounds, soft, non tender Extremities: no cyanosis, other - effusion in both knees Skin: no rash Laboratory Tests 08/22/16 06:00: White Blood Count 2.7L, Red Blood Count 3.26L, Hemoglobin 8.9L, Hematocrit 28.8L , Mean Corpuscular Volume 88, Mean Corpuscular Hemoglobin 27.3, Mean Corpuscular Hemoglobin Concent 31.0L, Red Cell Distribution Width 16.2H, Platelet Count 193, Mean Platelet Volume 6.8, Neutrophils (%) (Auto) , Lymphocytes (%) (Auto) , Monocytes (%) (Auto) , Eosinophils (%) (Auto) , Basophils (%) (Auto) , Differential Total Cells Counted 100, Neutrophils % ( Manual) 61, Lymphocytes % (Manual) 30, Monocytes % (Manual) 7, Eosinophils % ( Manual) 2, Basophils % (Manual) 0, Band Neutrophils 0, Platelet Estimate Adequate, Platelet Morphology Normal, Hypochromasia 1+, Anisocytosis 1+, Sodium Level 140, Potassium Level 3.9, Chloride Level 107, Carbon Dioxide Level 22, Anion Gap 11, Blood Urea Nitrogen 12, Creatinine 1.1, Estimat Glomerular Filtration Rate > 60, Glucose Level 91, Calcium Level 9.3 Current Medications Medications (Trade) Dose Ordered Sig/Jesi Route PRN Reason Start Time Stop Time Status Last Admin Dose Admin Acetaminophen (Tylenol) 650 mg Q4H PRN ORAL fever 08/19/16 21:05 09/18/16 21:04 Acetaminophen/ Hydrocodone Bitart ([place] 10/325) 1 ea Q4H PRN ORAL For moderate Pain 08/21/16 11:30 08/28/16 11:29 Al Hydroxide/Mg Hydroxide (Mylanta II) 30 ml Q6H PRN ORAL dyspepsia 08/19/16 21:05 09/18/16 21:04 08/21/16 12:18 Al Hydroxide/Mg Hydroxide (Mylanta) 15 ml Q1H PRN ORAL gi upset 08/22/16 11:30 08/22/16 18:00 Alprazolam (Xanax) 2 mg Q12HR ORAL 08/20/16 21:00 08/27/16 20:59 08/22/16 08:36 Atropine Sulfate (Atropine) 0.5 mg Q5M PRN IV bpm less than 45 08/22/16 11:30 08/22/16 18:00 Buspirone HCl 10 mg 10 mg BID ORAL 08/20/16 18:00 09/19/16 17:59 08/22/16 08:36 Dextrose (Dextrose 50%) STAT PRN IV Hypoglycemia 08/19/16 21:06 09/18/16 21:05 Diphenhydramine HCl (Benadryl) 25 mg Q15M PRN IVP Itching 08/22/16 11:30 08/22/16 18:00 Gabapentin 300 mg 300 mg THREE TIMES A DAY ORAL 08/22/16 09:00 09/21/16 08:59 08/22/16 13:13 Heparin Sodium (Porcine) (Heparin 5000 units/ml) 5,000 units EVERY 12 HOURS SUBQ 08/19/16 21:30 09/18/16 21:29 08/21/16 21:24 Hydralazine HCl (Apresoline) 5 mg Q30M PRN IV SBP>160 OR___/DBP>90 OR___ 08/22/16 11:30 08/22/16 18:00 Hydromorphone HCl (Dilaudid) 0.5 mg Q15M PRN IVP Severe Pain (Pain Scale 7-10) 08/22/16 11:30 08/22/16 18:00 Iron Sucrose/ Sodium Chloride (Venofer/Sodium Chloride) 60 ml @ 240 mls/hr BEDTIME IVPB 08/21/16 21:00 08/25/16 21:14 08/21/16 21:19 Levetiracetam (Keppra) 1,500 mg Q12HR ORAL 08/19/16 21:30 09/18/16 21:29 08/22/16 08:36 Lisinopril (Zestril) 10 mg DAILY ORAL 08/20/16 09:00 09/19/16 08:59 08/22/16 08:36 Lorazepam (Ativan 2mg/ml 1ml) 2 mg Q1H PRN IV seizures 08/19/16 21:06 08/26/16 21:05 08/19/16 22:20 Lorazepam (Ativan) 1 mg Q6H PRN ORAL For Anxiety 08/19/16 21:06 08/26/16 21:05 08/21/16 14:22 Midazolam HCl (Versed 2mg/2ml vial) 1 mg Q15M PRN IVP For Anxiety 08/22/16 11:30 08/22/16 18:00 Morphine Sulfate (Morphine Sulfate) 1 mg Q4H PRN IVP For severe Pain 08/21/16 13:12 08/28/16 13:11 08/22/16 13:26 Ondansetron HCl (Zofran) 4 mg Q1H PRN IVP Nausea & Vomiting 08/22/16 11:30 08/22/16 18:00 Ondansetron HCl (Zofran) 4 mg Q6H PRN IVP Nausea & Vomiting 08/19/16 21:07 09/18/16 21:06 Pantoprazole (Protonix) 40 mg EVERY 12 HOURS ORAL 08/21/16 09:00 09/20/16 08:59 08/22/16 13:12 Polyethylene Glycol (Miralax) 17 gm HSPRN PRN ORAL Constipation 08/19/16 21:07 09/18/16 21:06 Sodium Chloride (Sodium Chloride 1000ml bag) 1,000 ml @ 10 mls/hr Q24H IVLG 08/22/16 13:00 08/22/16 18:00 Sodium Chloride (Sodium Chloride 1000ml bag) 1,000 ml @ 70 mls/hr [id number] IV 08/20/16 14:00 09/19/16 13:59 08/22/16 13:14 Sucralfate (Carafate) 1 gm FOUR TIMES A DAY ORAL 08/22/16 13:30 09/21/16 13:29 08/22/16 13:25 Zolpidem Tartrate 5 mg 5 mg HSPRN PRN ORAL Insomnia 08/19/16 21:07 09/18/16 21:06 08/20/16 22:56 LAQUITA VAZQUEZ Aug 22, 2016 14:51
--- NOTE | 2016-08-22 15:14 | General Progress Note ---
Assessment/Plan Problem List: (1) Chronic pain ICD Codes: G89.29 - Other chronic pain SNOMED: 75798159 (2) GERSON (acute kidney injury) ICD Codes: N17.9 - Acute kidney failure, unspecified SNOMED: 88939743, 588123141 (3) Hypotension ICD Codes: I95.9 - Hypotension, unspecified SNOMED: 31594136, 389037455 Qualifiers: Qualified Codes: I95.9 - Hypotension, unspecified (4) Acute renal failure (ARF) ICD Codes: N17.9 - Acute renal failure (ARF) SNOMED: 78516616 (5) Anxiety ICD Codes: F41.9 - Anxiety disorder, unspecified SNOMED: 70886098 (6) Anemia ICD Codes: D64.9 - Anemia, unspecified SNOMED: 112035053 (7) Seizure disorder ICD Codes: G40.909 - Epilepsy, unspecified, not intractable, without status epilepticus SNOMED: 868906430 Status: stable, progressing, tolerating diet Assessment/Plan ot pt diet bp seizure pain control cbc bmp am dc w hh Subjective Constitutional: Reports: weakness Allergies: Coded Allergies: HALOPERIDOL (Verified Allergy, Mild, [place] really bad, 07/05/16) Makes him irritable. THIORIDAZINE (Verified Allergy, Mild, [place] really bad, 07/05/16) Makes him violent TRAZODONE (Verified Allergy, Mild, [place] really bad, 07/05/16) Too strong; inability to move. Uncoded Allergies: PSYCHOTROPIC MEDICATION (Allergy, Mild, 08/13/14) All Systems: reviewed and negative except above Subjective anxious c/o sl gen pain Objective Last 24 Hour Vital Signs Date Time Temp Pulse Resp B/P Pulse Ox O2 Delivery O2 Flow Rate FiO2 08/22/16 12:20 97.8 68 20 150/86 97 Room Air 08/22/16 12:08 48 18 100 08/22/16 11:50 98.0 53 20 170/85 100 Room Air 08/22/16 11:48 48 20 169/87 100 Room Air 08/22/16 11:39 58 20 163/90 100 Nasal Cannula 3.0 08/22/16 11:34 58 20 141/86 100 Nasal Cannula 3.0 08/22/16 11:29 97.4 58 20 142/91 100 Nasal Cannula 3.0 08/22/16 08:36 146/82 08/22/16 07:58 97.4 56 19 146/82 98 Room Air 08/22/16 04:00 97.5 52 18 178/87 Room Air 08/22/16 00:00 97.7 63 18 135/79 100 Room Air 08/21/16 20:00 97.9 59 18 151/79 Room Air 08/21/16 16:00 98.0 70 18 142/79 99 Room Air Bad tableLaboratory Tests 08/22/16 06:00: White Blood Count 2.7L, Red Blood Count 3.26L, Hemoglobin 8.9L, Hematocrit 28.8L , Mean Corpuscular Volume 88, Mean Corpuscular Hemoglobin 27.3, Mean Corpuscular Hemoglobin Concent 31.0L, Red Cell Distribution Width 16.2H, Platelet Count 193, Mean Platelet Volume 6.8, Neutrophils (%) (Auto) , Lymphocytes (%) (Auto) , Monocytes (%) (Auto) , Eosinophils (%) (Auto) , Basophils (%) (Auto) , Differential Total Cells Counted 100, Neutrophils % ( Manual) 61, Lymphocytes % (Manual) 30, Monocytes % (Manual) 7, Eosinophils % ( Manual) 2, Basophils % (Manual) 0, Band Neutrophils 0, Platelet Estimate Adequate, Platelet Morphology Normal, Hypochromasia 1+, Anisocytosis 1+, Sodium Level 140, Potassium Level 3.9, Chloride Level 107, Carbon Dioxide Level 22, Anion Gap 11, Blood Urea Nitrogen 12, Creatinine 1.1, Estimat Glomerular Filtration Rate > 60, Glucose Level 91, Calcium Level 9.3 Height (Feet): 5 Height (Inches): 5.00 Weight (Pounds): 167 General Appearance: lethargic EENT: normal ENT inspection Neck: normal alignment Cardiovascular: normal peripheral pulses, normal rate, regular rhythm Respiratory/Chest: chest wall non-tender, lungs clear, normal breath sounds Abdomen: normal bowel sounds, non tender, soft Extremities: normal inspection Edema: no edema noted Arm (L), no edema noted Arm (R), no edema noted Leg (L), no edema noted Leg (R), no edema noted Pedal (L), no edema noted Pedal (R), no edema noted Generalized Neurologic: motor weakness Skin: normal pigmentation, warm/dry GARZAYU Aug 22, 2016 15:14
[2016-08-22] MEDS ORDERED: Lisinopril 2.5mg tab ORAL ONE (15:15)
--- NOTE | 2016-08-22 15:18 | Infectious Diseases Prog Note ---
Assessment/Plan Problems: (1) Sepsis Assessment & Plan: less likely, no more leukocytosis and hypotension resolved with hydration, blood culture is negative , monitor WBC, no evidence of pneumonia or UTI, keep off antibiotics for now (2) GERSON (acute kidney injury) Assessment & Plan: improved, due to hypotension and dehydration, continue IVF for hydration (3) Prostate cancer, primary, 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 site Assessment & Plan: recommend oncology consult and brain images to rule out mets (4) exacerbation of seizure d/o 2/2 noncompliance Assessment & Plan: continue neuro check , monitor drug level, follow up with neurology . (5) Chronic low back pain Assessment & Plan: continue pain management as per primary (6) Colonization with VRE (vancomycin-resistant enterococcus) Assessment & Plan: keep in contact isolation Subjective Constitutional: Reports: no symptoms HEENT: Reports: no symptoms Respiratory: Reports: no symptoms Breasts: Reports: no symptoms Cardiovascular: Reports: no symptoms Gastrointestinal/Abdominal: Reports: no symptoms Genitourinary: Reports: no symptoms Neurologic: Reports: no symptoms Psychiatric: Reports: no symptoms Skin: Reports: no symptoms Endocrine: Reports: no symptoms Hematologic: Reports: no symptoms Allergies: Coded Allergies: HALOPERIDOL (Verified Allergy, Mild, [place] really bad, 07/05/16) Makes him irritable. THIORIDAZINE (Verified Allergy, Mild, [place] really bad, 07/05/16) Makes him violent TRAZODONE (Verified Allergy, Mild, [place] really bad, 07/05/16) Too strong; inability to move. Uncoded Allergies: PSYCHOTROPIC MEDICATION (Allergy, Mild, 08/13/14) Objective Vital Signs Last 24 Hour Vital Signs Date Time Temp Pulse Resp B/P Pulse Ox O2 Delivery O2 Flow Rate FiO2 08/22/16 12:20 97.8 68 20 150/86 97 Room Air 08/22/16 12:08 48 18 100 08/22/16 11:50 98.0 53 20 170/85 100 Room Air 08/22/16 11:48 48 20 169/87 100 Room Air 08/22/16 11:39 58 20 163/90 100 Nasal Cannula 3.0 08/22/16 11:34 58 20 141/86 100 Nasal Cannula 3.0 08/22/16 11:29 97.4 58 20 142/91 100 Nasal Cannula 3.0 08/22/16 08:36 146/82 08/22/16 07:58 97.4 56 19 146/82 98 Room Air 08/22/16 04:00 97.5 52 18 178/87 Room Air 08/22/16 00:00 97.7 63 18 135/79 100 Room Air 08/21/16 20:00 97.9 59 18 151/79 Room Air 08/21/16 16:00 98.0 70 18 142/79 99 Room Air Height (Feet): 5 Height (Inches): 5.00 Weight (Pounds): 167 General Appearance: WD/WN, no acute distress HEENT: normocephalic, atraumatic, anicteric, mucous membranes moist, PERRL, supple, no JVD Respiratory/Chest: chest wall non-tender, lungs clear, normal breath sounds, no respiratory distress, no accessory muscle use Cardiovascular: normal peripheral pulses, normal rate, regular rhythm, no gallop/murmur, no JVD Abdomen: normal bowel sounds, soft, non tender, no organomegaly, non distended , no mass, no scars Extremities: no cyanosis, no clubbing Skin: no rash, no lesions, no ulcers Neurologic/Psychiatric: alert, oriented x 3 Lymphatic: no neck adenopathy, no groin adenopathy Musculoskeletal: normal muscle bulk Laboratory Tests Test 08/22/16 06:00 White Blood Count 2.7 K/UL (4.8-10.8) L Red Blood Count 3.26 M/UL (4.70-6.10) L Hemoglobin 8.9 G/DL (14.2-18.0) L Hematocrit 28.8 % (42.0-52.0) L Mean Corpuscular Volume 88 FL (80-99) Mean Corpuscular Hemoglobin 27.3 PG (27.0-31.0) Mean Corpuscular Hemoglobin Concent 31.0 G/DL (32.0-36.0) L Red Cell Distribution Width 16.2 % (11.6-14.8) H Platelet Count 193 K/UL (150-450) Mean Platelet Volume 6.8 FL (6.5-10.1) Neutrophils (%) (Auto) % (45.0-75.0) Lymphocytes (%) (Auto) % (20.0-45.0) Monocytes (%) (Auto) % (1.0-10.0) Eosinophils (%) (Auto) % (0.0-3.0) Basophils (%) (Auto) % (0.0-2.0) Differential Total Cells Counted 100 Neutrophils % (Manual) 61 % (45-75) Lymphocytes % (Manual) 30 % (20-45) Monocytes % (Manual) 7 % (1-10) Eosinophils % (Manual) 2 % (0-3) Basophils % (Manual) 0 % (0-2) Band Neutrophils 0 % (0-8) Platelet Estimate Adequate Platelet Morphology Normal Hypochromasia 1+ Anisocytosis 1+ Sodium Level 140 mEQ/L (135-145) Potassium Level 3.9 mEQ/L (3.4-4.9) Chloride Level 107 mEQ/L (98-107) Carbon Dioxide Level 22 mEQ/L (20-30) Anion Gap 11 (5-15) Blood Urea Nitrogen 12 mg/dL (7-23) Creatinine 1.1 mg/dL (0.7-1.2) Estimat Glomerular Filtration Rate > 60 mL/min (>60) Glucose Level 91 mg/dL (74-106) Calcium Level 9.3 mg/dL (8.6-10.2) Current Medications Medications (Trade) Dose Ordered Sig/Jesi Route PRN Reason Start Time Stop Time Status Last Admin Dose Admin Acetaminophen (Tylenol) 650 mg Q4H PRN ORAL fever 08/19/16 21:05 09/18/16 21:04 Acetaminophen/ Hydrocodone Bitart ([place] 10/325) 1 ea Q4H PRN ORAL For moderate Pain 08/21/16 11:30 08/28/16 11:29 Al Hydroxide/Mg Hydroxide (Mylanta II) 30 ml Q6H PRN ORAL dyspepsia 08/19/16 21:05 09/18/16 21:04 08/21/16 12:18 Al Hydroxide/Mg Hydroxide (Mylanta) 15 ml Q1H PRN ORAL gi upset 08/22/16 11:30 08/22/16 18:00 Alprazolam (Xanax) 2 mg Q12HR ORAL 08/20/16 21:00 08/27/16 20:59 08/22/16 08:36 Atropine Sulfate (Atropine) 0.5 mg Q5M PRN IV bpm less than 45 08/22/16 11:30 7/10/17 18:00 Buspirone HCl 10 mg 10 mg BID ORAL 08/20/16 18:00 09/19/16 17:59 08/22/16 08:36 Dextrose (Dextrose 50%) STAT PRN IV Hypoglycemia 08/19/16 21:06 09/18/16 21:05 Diphenhydramine HCl (Benadryl) 25 mg Q15M PRN IVP Itching 08/22/16 11:30 08/22/16 18:00 Gabapentin 300 mg 300 mg THREE TIMES A DAY ORAL 08/22/16 09:00 09/21/16 08:59 08/22/16 13:13 Heparin Sodium (Porcine) (Heparin 5000 units/ml) 5,000 units EVERY 12 HOURS SUBQ 08/19/16 21:30 09/18/16 21:29 08/21/16 21:24 Hydralazine HCl (Apresoline) 5 mg Q30M PRN IV SBP>160 OR___/DBP>90 OR___ 08/22/16 11:30 08/22/16 18:00 Hydromorphone HCl (Dilaudid) 0.5 mg Q15M PRN IVP Severe Pain (Pain Scale 7-10) 08/22/16 11:30 08/22/16 18:00 Iron Sucrose/ Sodium Chloride (Venofer/Sodium Chloride) 60 ml @ 240 mls/hr BEDTIME IVPB 08/21/16 21:00 08/25/16 21:14 08/21/16 21:19 Levetiracetam (Keppra) 1,500 mg Q12HR ORAL 08/19/16 21:30 09/18/16 21:29 08/22/16 08:36 Lisinopril (Zestril) 5 mg STAT ONCE ORAL 08/22/16 15:15 08/22/16 15:16 Lisinopril (Zestril) 15 mg DAILY ORAL 08/23/16 09:00 09/22/16 08:59 Lorazepam (Ativan 2mg/ml 1ml) 2 mg Q1H PRN IV seizures 08/19/16 21:06 08/26/16 21:05 08/19/16 22:20 Lorazepam (Ativan) 1 mg Q6H PRN ORAL For Anxiety 08/19/16 21:06 08/26/16 21:05 08/21/16 14:22 Midazolam HCl (Versed 2mg/2ml vial) 1 mg Q15M PRN IVP For Anxiety 08/22/16 11:30 08/22/16 18:00 Morphine Sulfate (Morphine Sulfate) 1 mg Q4H PRN IVP For severe Pain 08/21/16 13:12 08/28/16 13:11 08/22/16 13:26 Ondansetron HCl (Zofran) 4 mg Q1H PRN IVP Nausea & Vomiting 08/22/16 11:30 08/22/16 18:00 Ondansetron HCl (Zofran) 4 mg Q6H PRN IVP Nausea & Vomiting 08/19/16 21:07 09/18/16 21:06 Pantoprazole (Protonix) 40 mg EVERY 12 HOURS ORAL 08/21/16 09:00 09/20/16 08:59 08/22/16 13:12 Polyethylene Glycol (Miralax) 17 gm HSPRN PRN ORAL Constipation 08/19/16 21:07 09/18/16 21:06 Sodium Chloride (Sodium Chloride 1000ml bag) 1,000 ml @ 10 mls/hr Q24H IVLG 08/22/16 13:00 08/22/16 18:00 Sodium Chloride (Sodium Chloride 1000ml bag) 1,000 ml @ 70 mls/hr [id number] 08/20/16 14:00 09/19/16 13:59 08/22/16 13:14 Sucralfate (Carafate) 1 gm FOUR TIMES A DAY ORAL 08/22/16 13:30 09/21/16 13:29 08/22/16 13:25 Zolpidem Tartrate 5 mg 5 mg HSPRN PRN ORAL Insomnia 08/19/16 21:07 09/18/16 21:06 08/20/16 22:56 Lizzy Rothman M.D. Aug 22, 2016 15:18
[2016-08-22] MEDS ORDERED: Docusate 100mg cap ORAL PRN (18:30)
[2016-08-22] MEDS ORDERED: BUSPAR10 MG ORAL (18:52)
[2016-08-22] MEDS ORDERED: FERROUS SULFAT325 MG ORAL (18:53)
[2016-08-22] MEDS ORDERED: NEURONTIN100 MG ORAL (18:56)
[2016-08-22] MEDS ORDERED: HEPARIN SO5000 UNIT2 SUBQ (18:56)
[2016-08-22] MEDS ORDERED: CARAFATE1 G1 ORAL (18:59)
[2016-08-22] MEDS ORDERED: PROTONIX40 MG ORAL (18:59)
[2016-08-22] MEDS ORDERED: XANAX2 MG ORAL (19:01)
[2016-08-22] MEDS ORDERED: ACETAMINOPHEN325 M1 ORAL (19:03)
[2016-08-22] MEDS ORDERED: MAALOX MAXIMUM355 M1 PO (19:10)
[2016-08-22] MEDS ORDERED: ZOFRAN4 M3 ORAL (19:11)
[2016-08-22] MEDS ORDERED: COLACE100 MG ORAL (19:11)
[2016-08-22] MEDS ORDERED: MIRALAX17 G2 ORAL (19:12)
[2016-08-22] MEDS ORDERED: SENNA8.6 M2 PO (19:12)
[2016-08-22] MEDS ORDERED: NORCO 10-325 T1 EACH ORAL (19:13)
[2016-08-22] MEDS ORDERED: AMBIEN5 MG ORAL (19:15)
[2016-08-22] MEDS ORDERED: ATIVAN1 MG ORAL (19:15)
[2016-08-22] MEDS ORDERED: Propofol 10mg/ml 20ml IV ONE (19:59)
[2016-08-22] MEDS ORDERED: Lidocaine 1% MPF 10mg/ml 5ml ONE (19:59)
--- NOTE | 2016-08-22 20:45 | Procedure Note ---
PROCEDURE: Upper endoscopy with biopsy and colonoscopy. SURGEON: Mu Rubin M.D. ANESTHESIOLOGIST: Magdalena Jennings M.D. INSTRUMENT: Olympus adult flexible upper endoscope and colonoscope. INDICATION: Anemia. REASON FOR PROCEDURE: The procedure, risks, benefits, and possible consequences, including hemorrhage, aspiration, perforation and infection, and alternative treatments, were explained to the patient/legal guardian by Dr. Mu Rubin and the patient/legal guardian understood and accepted these risks. PROCEDURE: After informed consent was obtained and the patient was adequately sedated, Olympus upper endoscope was advanced from the mouth into the second portion of the duodenum and retroflexion was performed in the stomach. The patient has evidence of distal esophagitis with a little bit of narrowing at the GE junction from the esophagitis. The patient has color changes at the GE junction suspicious for either Hernandez's versus severe esophagitis, which was biopsied. The patient also had evidence of 3 cm hiatal hernia. In the stomach, there was diffuse gastritis. Random biopsy from antrum was obtained to rule out H. pylori infection. At this time, the upper endoscope was retrieved and the patient was turned over for colonoscopy. First, a rectal exam was performed, which was normal. Then, the scope was advanced from the rectum into the cecum the appendiceal orifice, ileocecal valve, and upper quadrant palpation. Quality of prep was fair. The patient had few diverticuli in the right and left colon. There was some evidence of inflammatory changes in the ascending colon and transverse colon of unknown significance, may be resolving ischemic colitis. These areas were biopsied. The rest of the examination grossly within normal limits. Retroflexion of rectum showed evidence of internal hemorrhoids. SUMMARY FINDINGS: 1. Esophagitis. 2. Hiatal hernia. 3. Gastritis. 4. Diverticulosis. 5. Internal hemorrhoids. 6. Nonischemic colitis. RECOMMENDATIONS: Followup biopsy results and treat accordingly. I want to thank, Dr. Bobby Isbell for this kind referral. Mu Rubin M.D. DR: MAURO JOB#: [id number] CC: Bobby Isbell D.O.
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
[2016-08-23] MEDS ORDERED: Lisinopril 10mg tab ORAL SCH (09:00)
--- NOTE | 2016-08-23 11:03 | Discharge Summary ---
Discharge Summary Hospital Course Date of Admission Aug 18, 2016 at 19:38 Date of Discharge Aug 22, 2016 at 20:00 Admitting Diagnosis renal failure HPI Min Porras Jr is a 70 year old male who was admitted on Aug 18, 2016 at 19:38 for Renal Failure Hospital Course dc summary #[id number] Discharge Medications Continued Medications: Acetaminophen* (Acetaminophen 325MG Tablet*) 325 Mg Tablet 650 MG ORAL Q4H PRN for Mild Pain/Temp > 100.5, TAB Alprazolam* (Xanax*) 2 Mg Tablet 2 MG ORAL EVERY 12 HOURS, #30 TAB 0 Refills Buspirone Hcl* (Buspar*) 10 Mg Tablet 10 MG ORAL BID, #15 TAB 0 Refills Docusate Sodium* (Colace*) 100 Mg Capsule 100 MG ORAL THREE TIMES A DAY PRN for Constipation, CAP Ferrous Sulfate* (Ferrous Sulfate*) 325 Mg Tablet 325 MG ORAL TWICE A DAY for 60 Days, #60 TAB 0 Refills Gabapentin* (Neurontin*) 100 Mg Capsule 300 MG ORAL THREE TIMES A DAY, #15 CAP 0 Refills Levetiracetam (Levetiracetam) 500 Mg Tab.er.24h 1500 MG ORAL Q12HR, #30 TAB 0 Refills Lisinopril (Lisinopril*) 5 Mg Tablet 10 MG ORAL DAILY, TAB Lorazepam* (Ativan*) 1 Mg Tablet 1 MG ORAL EVERY 6 HOURS PRN for For Anxiety, TAB Mag Hydrox/Al Hydrox/Simeth (Maalox Maximum Strength Susp) 355 Ml Oral.susp 30 ML PO EVERY 6 HOURS PRN for Abdominal cramps, ML Ondansetron* (Zofran*) 4 Mg Tablet 4 MG ORAL Q6H PRN for Nausea & Vomiting, TAB Polyethylene Glycol 3350* (Miralax*) 17 Gm Powd.pack 17 GM ORAL QHS PRN for Constipation, PACKET Sennosides (Senna) 8.6 Mg Tablet 8.6 MG PO DAILY PRN for Constipation, TAB Zolpidem Tartrate* (Ambien*) 5 Mg Tablet 5 MG ORAL BEDTIME PRN for Insomnia, TAB Discontinued Medications: Alprazolam* (Xanax*) 1 Mg Tablet 1 TAB ORAL TWICE A DAY for For Anxiety, TAB 0 Refills Alprazolam* (Xanax*) 1 Mg Tablet 1 MG ORAL TID PRN for For Anxiety, TAB Atorvastatin Calcium* (Atorvastatin Calcium*) 20 Mg Tablet 20 MG ORAL BEDTIME, TAB Carvedilol* (Carvedilol*) 6.25 Mg Tablet 6.25 MG ORAL EVERY 12 HOURS, TAB Cephalexin* (Keflex*) 500 Mg Capsule 500 MG ORAL QID for 5 Days, #14 CAP 0 Refills Diltiazem Hcl* (Cardizem*) 30 Mg Tablet 30 MG PO TID, TAB Heparin Sod (Porcine) (Heparin Sodium*) 5 000/1 Ml Vial 5000 UNITS SUBQ EVERY 12 HOURS, VIAL Lisinopril* (Lisinopril*) 10 Mg Tablet 10 MG ORAL DAILY, TAB Naproxen* (Naproxen*) 500 Mg Tablet 500 MG ORAL TWICE A DAY, TAB Omeprazole (Omeprazole) 40 Mg Capsule.dr 40 MG ORAL DAILY, CAP Discharge Condition Upon Discharge: stable Discharge Disposition Patient was discharged to Home with Home Health(06) Discharge Diagnoses: Discharge Instructions Discharge Instructions Special Instructions I have been assigned to complete a D/C Summary on this account. I was not involved in the patient management Sharla Mandujano NP (Vanchtein) Aug 23, 2016 11:03
--- NOTE | 2016-08-23 21:00 | Discharge Summary 2 SIG ---
DATE OF ADMISSION: 08/18/2016 DATE OF DISCHARGE: 08/22/2016 REASON FOR ADMISSION: 70 years old male with history of seizure disorder, chronic back and leg pain, hypertension, prostate cancer, presented to emergency room for evaluation. According to the patient, last seizure episode was last month and no seizure episode since then. The patient reported increased chronic pain of the low back and bilateral legs. The patient apparently ran out of the [place], but unable to get any prescription for medications since his blood pressure at that time was 70/40 , and the patient was sent to the emergency room for evaluation. In the emergency department, at this time, blood pressure was 93/63. The patient given IV fluids with improvement and the blood pressure improved even better. WBC-12.4, hemoglobin -8.9, and hematocrit - 28.1. Chest x-ray revealed no acute cardiopulmonary disease. Creatinine was -5.3. EKG revealed normal sinus rate. No acute ischemic changes. The patient was admitted for further management. ADMITTING DIAGNOSES: 1. Acute renal failure. 2. Dehydration. 3. Hypotension. 4. Anemia. 5. Seizure disorder exacerbation. 6. Prostate cancer. 7. Chronic low back and leg pain. 8. Chronic pain syndrome, opiate and benzodiazepine dependence. 9. Possible sepsis with leukocytosis HOSPITAL STAY: The patient admitted. Cardiology, GI, Nephrology and ID consults were requested. Blood culture came back negative. Leukocytosis resolved. Urinalysis with no evidence of urinary tract infection. Chest x-ray with no evidence of infection, sepsis was ruled out. Supplemental oxygen and pulmonary toilet provided as needed. Pulse oximetry was stable on room air. Neurologist seen and evaluated the patient. According to neurologist, the patient had posttraumatic chronic seizure disorder exacerbating due to the noncompliance. He recommended to be seen by interventional pain physician to adjust his analgesics along with the psychiatrist to adjust large doses of benzodiazepine and initiate antidepressant. The patient was kept on seizure precaution. Keppra increased to 1500 mg twice a day. The patient started initially on the IV fluids. Renal parameters and electrolytes were closely monitored. Nephrotoxics were avoided. Hospital Laboratory Technician followed. Renal ultrasound revealed enlarged prostate, questionable small right renal nonobstructive stones, otherwise sonographically unremarkable kidney. Urine toxicology screen was negative. Creatinine down to 1.1, prior to discharge. Acute renal failure likely precipitated by dehydration, resolved. Echocardiogram revealed ejection fraction of 55% to 60% and right ventricular systolic pressure of 38 consistent with mild pulmonary hypertension. Hemoglobin and hematocrit were closely monitored. GI consult was requested. Stool for occult blood was positive x1. The patient subsequently had undergone EGD and colonoscopy with finding of gastritis, s/p biopsy, esophagitis, hiatal hernia, diverticulosis, internal hemorrhoids, and nonischemic colitis. GI recommended to follow up with the biopsy and treat accordingly and start diet as tolerated. Monitor hemoglobin and hematocrit and treat symptomatically. Hematology consult was requested. Athletic Shoe Designer seen the patient and stated that the patient had anemia secondary to GI bleeding as well as anemia of iron deficiency. Peripheral blood smear review revealed normocytic normochromic anemia. No bands. No blasts. No specific morphological changes. Athletic Shoe Designer recommended to start iron sulfate as outpatient for replacement of iron. Blood pressure improved. DVT prophylaxis provided. Pain management was addressed. Pain specialist had seen the patient. Pain medication adjusted as per pain specialist recommendation. GI prophylaxis provided. Psychiatrist seen the patient and optimized psychiatric medication regimen. The patient was stable to discharge home with home health services. DISCHARGE DIAGNOSES: 1. Chronic seizure disorder exacerbation secondary to noncompliance. 2. Chronic low back and bilateral lower extremity pain. 3. Chronic pain syndrome, opiate and benzodiazepine dependent. 4. Acute renal failure secondary to dehydration, resolved. 5. Dehydration. 6. Hypotension, resolved. 7. Anemia secondary to gastrointestinal bleeding, 8. Iron deficiency anemia. 9. Status post EGD and colonoscopy. 10. Gastritis. 11. Esophagitis. 12. Diverticulosis. 13. Internal hemorrhoids. 14. Nonischemic colitis. DISCHARGE INSTRUCTIONS: The patient discharged home with home health services. Follow up with the primary medical doctor. DISCHARGE MEDICATIONS: See medication reconciliation list. Bobby Isbell D.O. I have been assigned to dictate discharge summary on this account and I was not involved in the patient's management. Sharla Mandujano (Vanchtein) N.P. DR: SAEID JOB#: [id number] CC: GEOFF
== END 2016-08-22 20:00 | disposition home or self-care (01) | DRG 683 ==
LOC: EMR 18:20 → 2E 19:38 → EDBEDREQ 19:40 → 2E 22:33 → 4E 08-19 21:28
PROC: 0DBK8ZX Excision of Ascending Colon, Via Natural or Artificial Opening Endoscopic, Diagnostic (ICD-10-PCS; principal; 2016-08-22 10:53)
PROC: 0DB68ZX Excision of Stomach, Via Natural or Artificial Opening Endoscopic, Diagnostic (ICD-10-PCS; principal; 2016-08-22 10:53)
PROC: 0DB58ZX Excision of Esophagus, Via Natural or Artificial Opening Endoscopic, Diagnostic (ICD-10-PCS; principal; 2016-08-22 10:53)
PROC: 0DBL8ZX Excision of Transverse Colon, Via Natural or Artificial Opening Endoscopic, Diagnostic (ICD-10-PCS; principal; 2016-08-22 10:53)
DX: N17.9 Acute kidney failure, unspecified (principal); M62.82 Rhabdomyolysis; E87.0 Hyperosmolality and hypernatremia; I27.2 Other secondary pulmonary hypertension; C79.9 Secondary malignant neoplasm of unspecified site; I95.9 Hypotension, unspecified; F11.20 Opioid dependence, uncomplicated; C61 Malignant neoplasm of prostate; K92.2 Gastrointestinal hemorrhage, unspecified; I47.1 Supraventricular tachycardia; N39.0 Urinary tract infection, site not specified; K20.9 Esophagitis, unspecified; G40.909 Epilepsy, unspecified, not intractable, without status epilepticus; G89.4 Chronic pain syndrome; K29.70 Gastritis, unspecified, without bleeding; F41.9 Anxiety disorder, unspecified; E86.0 Dehydration; Z91.14 Patient's other noncompliance with medication regimen; D50.0 Iron deficiency anemia secondary to blood loss (chronic); D50.9 Iron deficiency anemia, unspecified; K57.90 Diverticulosis of intestine, part unspecified, without perforation or abscess without bleeding; K64.8 Other hemorrhoids; K52.89 Other specified noninfective gastroenteritis and colitis; Z88.6 Allergy status to analgesic agent; Z88.8 Allergy status to other drugs, medicaments and biological substances; M51.36 Other intervertebral disc degeneration, lumbar region; F43.10 Post-traumatic stress disorder, unspecified; M19.90 Unspecified osteoarthritis, unspecified site; F32.9 Major depressive disorder, single episode, unspecified; I25.10 Atherosclerotic heart disease of native coronary artery without angina pectoris; K44.9 Diaphragmatic hernia without obstruction or gangrene; I10 Essential (primary) hypertension; M54.16 Radiculopathy, lumbar region; Z22.39 Carrier of other specified bacterial diseases; Z16.22 Resistance to vancomycin related antibiotics
CPT/HCPCS: 36415; 71010; 76775; 80048; 80053; 80299; 80300; 81001; 82270; 82378; 82533; 82550; 82607; 82746; 83540; 83550; 83615; 84133; 84300; 84550; 85007; 85025; 85044; 85060; 85610; 85651; 85730; 87040; 87081; 89050; 93005; 93306; 94003; 94150; 97803

== ENCOUNTER 2016-09-06 14:49 | Inpatient (IN) | payer MEDICARE, OTHER ==
[2016-09-06] VITALS: BP 150/69
[~2016-09-06] VITALS: Ht 175.3 cm; Wt 72.6 kg
[~2016-09-06 14:49] MED LIST changes: +ACETAMINOPHEN325 M1 ORAL; +ALPRAZOLAM1 MG ORAL; +AMBIEN5 MG ORAL; +ATIVAN1 MG ORAL; +BUSPAR10 MG ORAL; +BUSPIRONE HCL10 M1 ORAL; +CARAFATE1 G1 ORAL; +CARDIZEM30 M1 PO; +COLACE100 MG ORAL; +FERROUS SULFAT325 MG ORAL; +HEPARIN SO5000 UNIT2 SUBQ; +LISINOPRIL5 MG ORAL; +MAALOX MAXIMUM355 M1 PO; +MIRALAX17 G2 ORAL; +NAPROXEN500 M2 ORAL; +NEURONTIN100 MG ORAL; +PANTOPRAZOLE SO20 MG ORAL; +PROTONIX40 MG ORAL; +SENNA8.6 M2 PO; +XANAX2 MG ORAL; +ZOFRAN4 M3 ORAL
[2016-09-06] MEDS ORDERED: Morphine Sulfate 4mg/ml Inj IVP ONE (16:30)
[2016-09-06] MEDS ORDERED: Miralax 17gm pkt ORAL PRN (16:30)
[2016-09-06] MEDS ORDERED: Norco 10mg/325mg tab ORAL PRN (16:30)
[2016-09-06] MEDS ORDERED: Mylanta II UD 30ml ORAL PRN (16:30)
[2016-09-06] MEDS ORDERED: LORazepam Inj 2mg/ml 1ml IV PRN (16:30)
[2016-09-06] MEDS ORDERED: Zolpidem 5mg tab ORAL PRN (16:30)
[2016-09-06 16:45] LABS: EOSINOPHILS % (AUTO) 2.8 % (0.0-3.0); LYMPHOCYTES % (AUTO) 15.1 % (20.0-45.0); MEAN CORPUSCULAR HEMOGLOBIN 25.8 PG (27.0-31.0); MEAN CORPUSCULAR HGB CONC 29.6 G/DL (32.0-36.0); MEAN CORPUSCULAR VOLUME 87 FL (80-99); MEAN PLATELET VOLUME 5.5 FL (6.5-10.1); NEUTROPHILS % (AUTO) 67.1 % (45.0-75.0); PLATELET COUNT 479 K/UL (150-450); RED CELL DISTRIBUTION WIDTH 16.7 % (11.6-14.8); WHITE BLOOD COUNT 4.4 K/UL (4.8-10.8)
[2016-09-06 16:54] LABS: PROTHROMBIN TIME 10.4 SEC (9.30-11.50)
[2016-09-06 16:56] LABS: ACETAMINOPHEN < 10 ug/mL (10-30); ALANINE AMINOTRANSFERASE 55 U/L (3-41); ALBUMIN/GLOBULIN RATIO 1.2 (1.0-2.7); ALCOHOL < 10 mg/dL; ANION GAP 12 (5-15); ASPARTATE AMINO TRANSFERASE 34 U/L (5-40); CALCIUM 9.5 mg/dL (8.6-10.2); CARBON DIOXIDE 23 mEQ/L (20-30); CHLORIDE 108 mEQ/L (98-107); CREATININE 1.2 mg/dL (0.7-1.2); GLOMERULAR FILTRATION RATE > 60 mL/min (>60); HEMOLYSIS 1; SODIUM 143 mEQ/L (135-145); TOTAL PROTEIN 7.2 g/dL (6.6-8.7)
--- NOTE | 2016-09-06 17:38 | Emergency Room Report ---
History of Present Illness General Chief Complaint: General Complaint Source: Patient Present Illness HPI The patient is a 70 yo M with a history of metastatic prostate CA, seizure disorder and chronic back pain presenting for pain and recent seizure. The patient states he had 2 seizures last week and came to this ER for evaluation. When he was DC'ed home, he was unable to fill his prescription for Keppra due to insurance and financial issues. He denies a seizure since he was last seen. Pain described as a 10/10 dull ache to the mid lower back and radiates to the R leg. Worse with movement. He denies recent injury to this area. He denies any other symptoms including N, V, F, chills, abd pain, CP, SOB Allergies: Coded Allergies: HALOPERIDOL (Verified Allergy, Mild, [place] really bad, 07/05/16) Makes him irritable. THIORIDAZINE (Verified Allergy, Mild, [place] really bad, 07/05/16) Makes him violent TRAZODONE (Verified Allergy, Mild, [place] really bad, 07/05/16) Too strong; inability to move. Uncoded Allergies: PSYCHOTROPIC MEDICATION (Allergy, Mild, 08/13/14) Patient History Past Medical History: see triage record Pertinent Family History: none Reviewed Nursing Documentation: PMH: Agreed, PSxH: Agreed Nursing Documentation-PMH Hx Cardiac Problems: Yes Hx Hypertension: Yes Hx Asthma: Yes Hx Cancer: Yes Hx Gastrointestinal Problems: Yes Hx Neurological Problems: Yes Hx Seizures: Yes - Last seizure: 07/26/16 Review of Systems All Other Systems: negative except mentioned in HPI Physical Exam Vital Signs Date Time Temp Pulse Resp B/P Pulse Ox O2 Delivery O2 Flow Rate FiO2 09/06/16 14:55 97.9 82 18 136/79 100 Room Air Sp02 EP Interpretation: reviewed, normal General Appearance: no apparent distress, alert, GCS 15, non-toxic Head: normocephalic, atraumatic Eyes: bilateral eye PERRL, bilateral eye normal inspection ENT: hearing grossly normal, normal pharynx, no angioedema, normal voice Neck: full range of motion, supple/symm/no masses Respiratory: chest non-tender, lungs clear, normal breath sounds, no wheezing, speaking full sentences Cardiovascular #1: regular rate, rhythm, no edema Musculoskeletal: tender - diffusely over the lumbar spine Neurologic: alert, oriented x3, responsive, motor strength/tone normal, sensory intact, speech normal Psychiatric: judgement/insight normal, memory normal, mood/affect normal, no suicidal/homicidal ideation Skin: normal color, no rash, warm/dry, well hydrated Lymphatic: no adenopathy Medical Decision Making PA Attestation Dr. Terrell is my supervising physician. Patient management was discussed with my supervising physician Diagnostic Impression: Primary Impression: Chronic low back pain Qualified Codes: M54.5 - Low back pain; G89.29 - Other chronic pain Additional Impressions: Anemia Qualified Codes: D64.9 - Anemia, unspecified Seizure disorder ER Course The patient is a 70 yo M presenting for seizure disorder and chronic pain DDx considered but not limited to: seizure disorder, chronic pain, disc herniation, sciatica, noncompliance, among others PE: vitals WNL. NAD PERRL. EOMI. Normal mentation. RRR. No MRG Lungs CTA bilat Abdomen: Normal appearance. Non distended. No ecchymosis. Normal BS. Non TTP. Skin is warm and dry, no rashes. TTP diffusely to the lower back lumbar region. Blood work unremarkable for acute findings. Largely unchanged from recent visits. He is given morphine for pain with good relief and a dose of Keppra. I have spoken with Dr. Yu Garza who will be admitting this patient. The patient agrees with this plan. He is in stable condition. Laboratory Tests Test 09/06/16 16:10 White Blood Count 4.4 K/UL (4.8-10.8) L Red Blood Count 3.40 M/UL (4.70-6.10) L Hemoglobin 8.8 G/DL (14.2-18.0) L Hematocrit 29.6 % (42.0-52.0) L Mean Corpuscular Volume 87 FL (80-99) Mean Corpuscular Hemoglobin 25.8 PG (27.0-31.0) L Mean Corpuscular Hemoglobin Concent 29.6 G/DL (32.0-36.0) L Red Cell Distribution Width 16.7 % (11.6-14.8) H Platelet Count 479 K/UL (150-450) H Mean Platelet Volume 5.5 FL (6.5-10.1) L Neutrophils (%) (Auto) 67.1 % (45.0-75.0) Lymphocytes (%) (Auto) 15.1 % (20.0-45.0) L Monocytes (%) (Auto) 13.0 % (1.0-10.0) H Eosinophils (%) (Auto) 2.8 % (0.0-3.0) Basophils (%) (Auto) 2.0 % (0.0-2.0) Prothrombin Time 10.4 SEC (9.30-11.50) Prothrombin Time INR 1.0 (0.9-1.1) PTT 24 SEC (23-33) Sodium Level 143 mEQ/L (135-145) Potassium Level 4.0 mEQ/L (3.4-4.9) Chloride Level 108 mEQ/L (98-107) H Carbon Dioxide Level 23 mEQ/L (20-30) Anion Gap 12 (5-15) Blood Urea Nitrogen 26 mg/dL (7-23) H Creatinine 1.2 mg/dL (0.7-1.2) Estimate Glomerular Filtration Rate > 60 mL/min (>60) Glucose Level 100 mg/dL (74-106) Calcium Level 9.5 mg/dL (8.6-10.2) Total Bilirubin 0.3 mg/dL (0.0-1.2) Aspartate Amino Transferase (AST) 34 U/L (5-40) Alanine Aminotransferase (ALT) 55 U/L (3-41) H Alkaline Phosphatase 154 U/L (40-129) H Total Protein 7.2 g/dL (6.6-8.7) Albumin 4.0 g/dL (3.5-5.2) Globulin 3.2 g/dL Albumin/Globulin Ratio 1.2 (1.0-2.7) Salicylates Level < 1 mg/dL (10-30) L Urine Opiates Screen Negative (NEGATIVE) Acetaminophen Level < 10 ug/mL (10-30) L Urine Barbiturates Screen Negative (NEGATIVE) Levetiracetam Level Pending Phencyclidine (PCP) Screen Negative (NEGATIVE) Urine Amphetamines Screen Negative (NEGATIVE) Urine Benzodiazepines Screen Negative (NEGATIVE) Urine Cocaine Screen Negative (NEGATIVE) Urine Marijuana (THC) Screen Negative (NEGATIVE) Serum Alcohol < 10 mg/dL Lab Results Impression No leukocytosis. There is anemia unchanged from previous labs. CMP unremarkable. Last Vital Signs Date Time Temp Pulse Resp B/P Pulse Ox O2 Delivery O2 Flow Rate FiO2 09/06/16 14:55 97.9 82 18 136/79 100 Room Air Status: improved Disposition: ADMITTED INPATIENT Condition: Stable Referrals: YU GARZA (PCP) ALAN IZAGUIRRE Sep 06, 2016 17:38
[2016-09-06] MEDS ORDERED: DILTIAZEM HCL30 MG PO (18:18)
[2016-09-06 18:39] VITALS: BP 161/98
[2016-09-06] MEDS: BusPIRone 10mg Tab ORAL SCH (19:56)
[2016-09-06] MEDS: Heparin 5000 units/ml inj SUBQ SCH (19:57)
[2016-09-06 20:00] VITALS: BP 146/76
--- NOTE | 2016-09-06 23:11 | Pulmonology Progress Note ---
Assessment/Plan Problems: (1) UTI (urinary tract infection) (2) Sepsis (3) Iron deficiency anemia (4) Chronic pain (5) Seizure disorder Assessment/Plan lawson culture f/u urie pain management dvt prophylaxis all notes and meds reviewed Subjective ROS Limited/Unobtainable: No Allergies: Coded Allergies: HALOPERIDOL (Verified Allergy, Mild, [place] really bad, 07/05/16) Makes him irritable. THIORIDAZINE (Verified Allergy, Mild, [place] really bad, 07/05/16) Makes him violent TRAZODONE (Verified Allergy, Mild, [place] really bad, 07/05/16) Too strong; inability to move. Uncoded Allergies: PSYCHOTROPIC MEDICATION (Allergy, Mild, 08/13/14) Objective Last 24 Hour Vital Signs Date Time Temp Pulse Resp B/P Pulse Ox O2 Delivery O2 Flow Rate FiO2 09/06/16 20:00 97.3 71 16 146/76 96 Room Air 09/06/16 18:39 98.2 70 16 161/98 98 Room Air 09/06/16 18:39 70 16 161/98 98 Room Air 09/06/16 17:50 98.2 09/06/16 14:55 97.9 82 18 136/79 100 Room Air Objective General Appearance: WD/WN HEENT: normocephalic Respiratory/Chest: chest wall non-tender, lungs clear Breasts: no masses Cardiovascular: normal peripheral pulses Abdomen: normal bowel sounds, soft, non tender Genitourinary: normal external genitalia Skin: no rash Laboratory Tests 09/06/16 16:10: White Blood Count 4.4L, Red Blood Count 3.40L, Hemoglobin 8.8L, Hematocrit 29.6L , Mean Corpuscular Volume 87, Mean Corpuscular Hemoglobin 25.8L, Mean Corpuscular Hemoglobin Concent 29.6L, Red Cell Distribution Width 16.7H, Platelet Count 479H, Mean Platelet Volume 5.5L, Neutrophils (%) (Auto) 67.1, Lymphocytes (%) (Auto) 15.1L, Monocytes (%) (Auto) 13.0H, Eosinophils (%) (Auto ) 2.8, Basophils (%) (Auto) 2.0, Prothrombin Time 10.4, Prothromb Time International Ratio 1.0, Activated Partial Thromboplast Time 24, Sodium Level 143, Potassium Level 4.0, Chloride Level 108H, Carbon Dioxide Level 23, Anion Gap 12, Blood Urea Nitrogen 26H, Creatinine 1.2, Estimat Glomerular Filtration Rate > 60, Glucose Level 100, Calcium Level 9.5, Total Bilirubin 0.3, Aspartate Amino Transf (AST/SGOT) 34, Alanine Aminotransferase (ALT/SGPT) 55H, Alkaline Phosphatase 154H, Total Protein 7.2, Albumin 4.0, Globulin 3.2, Albumin/ Globulin Ratio 1.2, Salicylates Level < 1L, Urine Opiates Screen Negative, Acetaminophen Level < 10L, Urine Barbiturates Screen Negative, Levetiracetam ( Keppra) Level [Pending], Phencyclidine (PCP) Screen Negative, Urine Amphetamines Screen Negative, Urine Benzodiazepines Screen Negative, Urine Cocaine Screen Negative, Urine Marijuana (THC) Screen Negative, Serum Alcohol < 10 Current Medications Medications (Trade) Dose Ordered Sig/Jesi Route PRN Reason Start Time Stop Time Status Last Admin Dose Admin Acetaminophen (Tylenol) 650 mg Q4H PRN ORAL fever 09/06/16 16:30 10/06/16 16:29 Acetaminophen/ Hydrocodone Bitart ([place] 10/325) 1 ea Q4H PRN ORAL For Pain 4-6 09/06/16 16:30 09/13/16 16:29 Al Hydroxide/Mg Hydroxide (Mylanta II) 30 ml Q6H PRN ORAL dyspepsia 09/06/16 16:30 10/06/16 16:29 Buspirone HCl (Buspar) 10 mg TWICE A DAY ORAL 09/06/16 18:30 10/06/16 18:29 09/06/16 19:56 Dextrose (Dextrose 50%) STAT PRN IV Hypoglycemia 09/06/16 16:30 10/06/16 16:29 Gabapentin (Neurontin) 300 mg THREE TIMES A DAY ORAL 09/06/16 18:30 10/06/16 18:29 09/06/16 19:56 Heparin Sodium (Porcine) (Heparin 5000 units/ml) 5,000 units EVERY 12 HOURS SUBQ 09/06/16 21:00 10/06/16 20:59 09/06/16 19:57 Lisinopril (Zestril) 10 mg DAILY ORAL 09/07/16 09:00 10/07/16 08:59 Lorazepam (Ativan 2mg/ml 1ml) 2 mg Q1H PRN IV seizures 09/06/16 16:30 09/13/16 16:29 Morphine Sulfate (Morphine Sulfate) 1 mg Q4H PRN IVP For Pain -09/06/16 16:30 09/13/16 16:29 Ondansetron HCl (Zofran) 4 mg Q6H PRN IVP Nausea & Vomiting 09/06/16 16:30 10/06/16 16:29 Polyethylene Glycol (Miralax) 17 gm HSPRN PRN ORAL Constipation 09/06/16 16:30 10/06/16 16:29 Zolpidem Tartrate (Ambien) 5 mg HSPRN PRN ORAL Insomnia 09/06/16 16:30 10/06/16 16:29 LAQUITA VAZQUEZ Sep 06, 2016 23:11
[2016-09-07 00:01] VITALS: BP 137/90
[2016-09-07 04:14] VITALS: BP 124/78
[2016-09-07 06:51] LABS: BASOPHILS % (AUTO) 1.2 % (0.0-2.0); EOSINOPHILS % (AUTO) 4.5 % (0.0-3.0); LYMPHOCYTES % (AUTO) 26.1 % (20.0-45.0); MEAN CORPUSCULAR HEMOGLOBIN 26.6 PG (27.0-31.0); MEAN CORPUSCULAR HGB CONC 30.8 G/DL (32.0-36.0); MEAN CORPUSCULAR VOLUME 87 FL (80-99); MEAN PLATELET VOLUME 5.4 FL (6.5-10.1); MONOCYTES % (AUTO) 11.6 % (1.0-10.0); NEUTROPHILS % (AUTO) 56.5 % (45.0-75.0); PLATELET COUNT 421 K/UL (150-450); RED BLOOD COUNT 3.24 M/UL (4.70-6.10); RED CELL DISTRIBUTION WIDTH 16.2 % (11.6-14.8); WHITE BLOOD COUNT 4.2 K/UL (4.8-10.8)
[2016-09-07 07:08] LABS: ALANINE AMINOTRANSFERASE 43 U/L (3-41); ANION GAP 12 (5-15); ASPARTATE AMINO TRANSFERASE 23 U/L (5-40); CALCIUM 9.1 mg/dL (8.6-10.2); CARBON DIOXIDE 21 mEQ/L (20-30); CHLORIDE 110 mEQ/L (98-107); CREATININE 1.2 mg/dL (0.7-1.2); GLOMERULAR FILTRATION RATE > 60 mL/min (>60); HEMOLYSIS 0; SODIUM 143 mEQ/L (135-145); TOTAL PROTEIN 7.1 g/dL (6.6-8.7)
[2016-09-07 08:00] VITALS: BP 115/73
--- NOTE | 2016-09-07 08:18 | General Progress Note ---
Progress Note Progress Note [id number] full note dictated NATHANAEL ANN Sep 07, 2016 08:18
--- NOTE | 2016-09-07 08:30 | General Progress Note ---
Assessment/Plan Assessment/Plan (1) Lumbar DDD (2) Lumbar Spondylosis (3) Lumbar Radiculopathy (4) Lumbar Herniated disc (5) Multiple Joint OA (6) B/L knee pain Pt will be continued on Morphine 1mg IV Q4H PRN severe pain and [place] 10/325mg PO 1 tab Q4H PRN moderate pain .. Pt was d/w Dr. Link and he concurred. Subjective Date patient seen: Sep 07, 2016 Time patient seen: 07:15 - am Allergies: Coded Allergies: HALOPERIDOL (Verified Allergy, Mild, [place] really bad, 07/05/16) Makes him irritable. THIORIDAZINE (Verified Allergy, Mild, [place] really bad, 07/05/16) Makes him violent TRAZODONE (Verified Allergy, Mild, [place] really bad, 07/05/16) Too strong; inability to move. Uncoded Allergies: PSYCHOTROPIC MEDICATION (Allergy, Mild, 08/13/14) Subjective Constitutional: Reports: weakness, Denies: chills, diaphoresis, fever, malaise , no symptoms, other HEENT: Denies: blurred vision, double vision, ear discharge, ear pain, eye pain , mouth pain, mouth swelling, no symptoms, nose congestion, nose pain, other, tearing, throat pain, throat swelling Cardiovascular: Denies: chest pain, edema, irregular heart rate, lightheadedness, no symptoms, other, palpitations, syncope Respiratory: Denies: SOB at rest, SOB with excertion, cough, no symptoms, orthopnea, other, shortness of breath, sputum, stridor, wheezing Gastrointestinal/Abdominal: Denies: abdomen distended, abdominal pain, black stools, blood in stool, constipated, diarrhea, difficulty swallowing, nausea, no symptoms, other, poor appetite, poor fluid intake, rectal bleeding, tarry stools, vomiting Genitourinary: Denies: burning, discharge, flank pain, frequency, hematuria, incontinence, no symptoms, other, pain, urgency Neurologic/Psychiatric: Reports: weakness, Denies: anxiety, depressed, emotional problems, headache, no symptoms, numbness, other, paresthesia, pre- existing deficit, seizure, tingling, tremors Endocrine: Denies: excessive sweating, flushing, increased hunger, increased thirst, increased urine, intolerance to cold, intolerance to heat, no symptoms, other, unexplained weight gain, unexplained weight loss Hematologic/Lymphatic: Denies: anemia, easy bleeding, easy bruising, no symptoms, other Subjective Patient is a known patient from prior admission and returned due seizure disorder under the care of Dr Isbell and has continued pain. We were consulted so patient has adequate pain control while here in the hospital. Objective Last 24 Hour Vital Signs Date Time Temp Pulse Resp B/P Pulse Ox O2 Delivery O2 Flow Rate FiO2 09/07/16 08:00 97.9 92 19 115/73 95 Room Air 09/07/16 04:14 97.3 71 16 124/78 96 Room Air 09/07/16 00:01 97.3 70 16 137/90 96 Room Air 09/06/16 20:00 97.3 71 16 146/76 96 Room Air 09/06/16 18:39 98.2 70 16 161/98 98 Room Air 09/06/16 18:39 70 16 161/98 98 Room Air 09/06/16 17:50 98.2 09/06/16 14:55 97.9 82 18 136/79 100 Room Air Intake and Output 09/06/16 09/07/16 19:00 07:00 Output Total 200 ml 500 ml Balance -200 ml -500 ml Output Urine Total 200 ml 500 ml Laboratory Tests 09/06/16 16:10: White Blood Count 4.4L, Red Blood Count 3.40L, Hemoglobin 8.8L, Hematocrit 29.6L , Mean Corpuscular Volume 87, Mean Corpuscular Hemoglobin 25.8L, Mean Corpuscular Hemoglobin Concent 29.6L, Red Cell Distribution Width 16.7H, Platelet Count 479H, Mean Platelet Volume 5.5L, Neutrophils (%) (Auto) 67.1, Lymphocytes (%) (Auto) 15.1L, Monocytes (%) (Auto) 13.0H, Eosinophils (%) (Auto ) 2.8, Basophils (%) (Auto) 2.0, Prothrombin Time 10.4, Prothromb Time International Ratio 1.0, Activated Partial Thromboplast Time 24, Sodium Level 143, Potassium Level 4.0, Chloride Level 108H, Carbon Dioxide Level 23, Anion Gap 12, Blood Urea Nitrogen 26H, Creatinine 1.2, Estimat Glomerular Filtration Rate > 60, Glucose Level 100, Calcium Level 9.5, Total Bilirubin 0.3, Aspartate Amino Transf (AST/SGOT) 34, Alanine Aminotransferase (ALT/SGPT) 55H, Alkaline Phosphatase 154H, Total Protein 7.2, Albumin 4.0, Globulin 3.2, Albumin/ Globulin Ratio 1.2, Salicylates Level < 1L, Urine Opiates Screen Negative, Acetaminophen Level < 10L, Urine Barbiturates Screen Negative, Levetiracetam ( Keppra) Level [Pending], Phencyclidine (PCP) Screen Negative, Urine Amphetamines Screen Negative, Urine Benzodiazepines Screen Negative, Urine Cocaine Screen Negative, Urine Marijuana (THC) Screen Negative, Serum Alcohol < 10 09/07/16 04:40: White Blood Count 4.2L, Red Blood Count 3.24L, Hemoglobin 8.6L, Hematocrit 28.1L , Mean Corpuscular Volume 87, Mean Corpuscular Hemoglobin 26.6L, Mean Corpuscular Hemoglobin Concent 30.8L, Red Cell Distribution Width 16.2H, Platelet Count 421, Mean Platelet Volume 5.4L, Neutrophils (%) (Auto) 56.5, Lymphocytes (%) (Auto) 26.1, Monocytes (%) (Auto) 11.6H, Eosinophils (%) (Auto) 4.5H, Basophils (%) (Auto) 1.2, Sodium Level 143, Potassium Level 4.0, Chloride Level 110H, Carbon Dioxide Level 21, Anion Gap 12, Blood Urea Nitrogen 21, Creatinine 1.2, Estimat Glomerular Filtration Rate > 60, Glucose Level 95, Calcium Level 9.1, Total Bilirubin 0.3, Aspartate Amino Transf (AST/SGOT) 23, Alanine Aminotransferase (ALT/SGPT) 43H, Alkaline Phosphatase 140H, Total Protein 7.1, Albumin 3.6, Globulin 3.5, Albumin/Globulin Ratio 1.0 Height (Feet): 5 Height (Inches): 9.00 Weight (Pounds): 160 Objective General Appearance: no apparent distress, alert EENT: PERRL/EOMI, normal ENT inspection Neck: non-tender, normal alignment Cardiovascular: normal rate, regular rhythm Respiratory/Chest: decreased breath sounds Abdomen: non tender, soft Extremities: non-tender Edema: no edema noted Arm (L), no edema noted Arm (R), no edema noted Leg (L), no edema noted Leg (R), no edema noted Pedal (L), no edema noted Pedal (R), no edema noted Generalized Neurologic: alert, oriented x 3 Skin: warm/dry VICTOR M FLORES Sep 07, 2016 08:30
[2016-09-07] MEDS ORDERED: Lisinopril 10mg tab ORAL SCH (09:00)
[2016-09-07] MEDS: BusPIRone 10mg Tab ORAL SCH ×2 (09:21→17:46)
[2016-09-07] MEDS: Lisinopril 20mg tab ORAL SCH (09:22)
[2016-09-07] MEDS: Heparin 5000 units/ml inj SUBQ SCH ×2 (09:24→20:36)
--- NOTE | 2016-09-07 11:02 | Consultation ---
DATE OF CONSULTATION: 09/07/2016 NEPHROLOGY CONSULTATION REFERRING PHYSICIAN: Bobby Isbell D.O. REASON FOR CONSULTATION: Acute renal failure and hypertension. HISTORY OF PRESENT ILLNESS: The patient is a 70-year-old male with past medical history significant for history of seizure disorder. He was diagnosed about a year ago and he had been taking Keppra 1000 mg twice a day. Apparently, the patient ran out of medication and came to the emergency room, filled his medication for a couple of days, but went home and had an acute tonic-clonic grand mal seizure. He was sent back home and was admitted in the surgical unit. I was called for management of renal disease and electrolyte imbalance. PAST MEDICAL HISTORY: 1. History of acute renal failure in the past. 2. History of seizure disorder. 3. History of chronic pain. 4. History of hypertension. PAST SURGICAL HISTORY: None. MEDICATIONS: Home medications are includin. Zestril. 2. Ativan. 3. Keppra. 4. Zofran. 5. Maalox. 6. Morphine. ALLERGIES: The patient is allergic to haloperidol, trazodone, and thioridazine. SOCIAL HISTORY: Denies any history of current tobacco, alcohol, or drug use. FAMILY HISTORY: Significant for history of diabetes and malignancy in first-degree relatives. REVIEW OF SYSTEMS: General: He complained of generalized weakness. Denies any fever, chills, or night sweats. Head And Neck: Denies any dysphagia, odynophagia, blurry vision, headache, or neck stiffness. Pulmonary: No shortness of breath, cough, or sputum. Cardiovascular: Complained of chest pain, but is mostly bone pain. Gastrointestinal: Denies any nausea, vomiting, diarrhea, hematemesis, or hematochezia. Genitourinary: Denies any dysuria, frequency, or hematuria. Musculoskeletal: He complained of generalized weakness and generalized pain all over his body. Otherwise, denies any localized weakness or numbness. PHYSICAL EXAMINATION: VITAL SIGNS: The patient had temperature of 98, blood pressure is 160/98, pulse rate of 98, and respiratory rate of 18. HEAD AND NECK: No JVP. No LAD. No thyromegaly. Extraocular movement intact. Pupils are reactive to light and accommodation. LUNGS: Clear to auscultation. CARDIAC: Regular rate and rhythm. S1 and S2. No murmur. No rub. ABDOMEN: Soft, nontender, and nondistended. EXTREMITIES: No edema. No clubbing. No cyanosis. LABORATORY VALUES: The patient has sodium of 143, potassium 4, 108 chloride, 23 bicarb, BUN of 26, creatinine of 1.2, glucose of 100, and calcium of 9.5. AST of 34, ALT of 55, and alkaline phosphatase of 154. Total protein of 7.2. CBC reveal WBC count of 4.2, hemoglobin of 8.6, hematocrit of 28, and platelet count of 421,000. There is no UA. ASSESSMENT: 1. Acute renal failure, prerenal azotemia. 2. Breakthrough seizure, most likely due to noncompliant with medication. 3. Anemia. 4. Uncontrolled hypertension. PLAN: Plan for the patient is to increase lisinopril to 20 mg. Obtain UA. Check the random urine protein creatinine ratio to calculate the proteinuria. Goal of blood pressure less than 130/75. Avoid any NSAID or nephrotoxic. Check the CPK level for possible rhabdo due to grand mal seizure. Again, I would like to thank Dr. Bobby Isbell, for allowing me to participate in the care of this patient. Claire Diaz JOB#: [id number] CC:
[2016-09-07 11:52] VITALS: BP 134/80
--- NOTE | 2016-09-07 12:29 | Neurology Progress Note ---
Objective Physical Exam Last Vital Signs Date Time Temp Pulse Resp B/P Pulse Ox O2 Delivery O2 Flow Rate FiO2 09/07/16 11:52 97.6 65 20 134/80 100 Room Air Laboratory Tests Test 09/06/16 16:10 09/07/16 04:40 White Blood Count 4.4 K/UL (4.8-10.8) L 4.2 K/UL (4.8-10.8) L Red Blood Count 3.40 M/UL (4.70-6.10) L 3.24 M/UL (4.70-6.10) L Hemoglobin 8.8 G/DL (14.2-18.0) L 8.6 G/DL (14.2-18.0) L Hematocrit 29.6 % (42.0-52.0) L 28.1 % (42.0-52.0) L Mean Corpuscular Volume 87 FL (80-99) 87 FL (80-99) Mean Corpuscular Hemoglobin 25.8 PG (27.0-31.0) L 26.6 PG (27.0-31.0) L Mean Corpuscular Hemoglobin Concent 29.6 G/DL (32.0-36.0) L 30.8 G/DL (32.0-36.0) L Red Cell Distribution Width 16.7 % (11.6-14.8) H 16.2 % (11.6-14.8) H Platelet Count 479 K/UL (150-450) H 421 K/UL (150-450) Mean Platelet Volume 5.5 FL (6.5-10.1) L 5.4 FL (6.5-10.1) L Neutrophils (%) (Auto) 67.1 % (45.0-75.0) 56.5 % (45.0-75.0) Lymphocytes (%) (Auto) 15.1 % (20.0-45.0) L 26.1 % (20.0-45.0) Monocytes (%) (Auto) 13.0 % (1.0-10.0) H 11.6 % (1.0-10.0) H Eosinophils (%) (Auto) 2.8 % (0.0-3.0) 4.5 % (0.0-3.0) H Basophils (%) (Auto) 2.0 % (0.0-2.0) 1.2 % (0.0-2.0) Prothrombin Time 10.4 SEC (9.30-11.50) Prothromb Time International Ratio 1.0 (0.9-1.1) Activated Partial Thromboplast Time 24 SEC (23-33) Sodium Level 143 mEQ/L (135-145) 143 mEQ/L (135-145) Potassium Level 4.0 mEQ/L (3.4-4.9) 4.0 mEQ/L (3.4-4.9) Chloride Level 108 mEQ/L (98-107) H 110 mEQ/L (98-107) H Carbon Dioxide Level 23 mEQ/L (20-30) 21 mEQ/L (20-30) Anion Gap 12 (5-15) 12 (5-15) Blood Urea Nitrogen 26 mg/dL (7-23) H 21 mg/dL (7-23) Creatinine 1.2 mg/dL (0.7-1.2) 1.2 mg/dL (0.7-1.2) Estimat Glomerular Filtration Rate > 60 mL/min (>60) > 60 mL/min (>60) Glucose Level 100 mg/dL (74-106) 95 mg/dL (74-106) Calcium Level 9.5 mg/dL (8.6-10.2) 9.1 mg/dL (8.6-10.2) Total Bilirubin 0.3 mg/dL (0.0-1.2) 0.3 mg/dL (0.0-1.2) Aspartate Amino Transf (AST/SGOT) 34 U/L (5-40) 23 U/L (5-40) Alanine Aminotransferase (ALT/SGPT) 55 U/L (3-41) H 43 U/L (3-41) H Alkaline Phosphatase 154 U/L (40-129) H 140 U/L (40-129) H Total Protein 7.2 g/dL (6.6-8.7) 7.1 g/dL (6.6-8.7) Albumin 4.0 g/dL (3.5-5.2) 3.6 g/dL (3.5-5.2) Globulin 3.2 g/dL 3.5 g/dL Albumin/Globulin Ratio 1.2 (1.0-2.7) 1.0 (1.0-2.7) Salicylates Level < 1 mg/dL (10-30) L Urine Opiates Screen Negative (NEGATIVE) Acetaminophen Level < 10 ug/mL (10-30) L Urine Barbiturates Screen Negative (NEGATIVE) Levetiracetam (Keppra) Level Pending Phencyclidine (PCP) Screen Negative (NEGATIVE) Urine Amphetamines Screen Negative (NEGATIVE) Urine Benzodiazepines Screen Negative (NEGATIVE) Urine Cocaine Screen Negative (NEGATIVE) Urine Marijuana (THC) Screen Negative (NEGATIVE) Serum Alcohol < 10 mg/dL Impression/Recommendations Recommendations #[id number] MAMADOU MCALLISTER Sep 07, 2016 12:29
[2016-09-07] MEDS: Morphine Sulfate 2mg/ml Inj IVP PRN ×2 (13:00→17:46)
[2016-09-07 16:07] VITALS: BP 130/75
--- NOTE | 2016-09-07 17:01 | Consultation ---
DATE OF CONSULTATION: 09/07/2016 NEUROLOGICAL CONSULTATION CONSULTING PHYSICIAN: Selvin Alonso M.D. REQUESTING PHYSICIAN: Bobby Isbell D.O. HISTORY OF PRESENT ILLNESS: This is a 70-year-old man, who was seen in neurological consultation two months ago for exacerbation of seizures caused by not being able to take on time medications. At this time, the patient is admitted for similar issues. He was not able to obtain his prescribed previously Keppra 1000 b.i.d. due to insurance and different financial issues. As a result, he developed two generalized seizures. He was seen initially in the emergency room and also presenting with severe pain, which he stated as 10/10. Pain in his sternum region, right knee, and right ankle region. The patient was brought and he was admitted to this facility. His vital signs were stable. Blood pressure 136/79. He was afebrile. Laboratory work was obtained with evidence of anemia, hemoglobin 8.8 and hematocrit 29.6. Coagulation panel was normal. Toxicology panel was negative. Chemistry panel with BUN of 26 and creatinine 1.2. ALT 55 and alkaline phosphatase 154. The patient has chronic seizure disorder, which is apparently well controlled when he is on Keppra 1000 mg b.i.d. Exacerbation of seizures occur when he is off medication. He has a history of chronic pain syndrome, which is opiate dependent, history of anxiety disorder, prostate CA with bone metastasis, chronic anemia, and lumbar spondylosis with radiculopathic pain. The patient has a history of head trauma in the past with the previous CT of the brain revealing several areas of chronic encephalomalacia. He has a history of hypertension. MEDICATIONS: The patient's reconcile list of medications included BuSpar 10 mg b.i.d., diltiazem, gabapentin 300 mg t.i.d., and [place] 10 mg q.4 p.r.n. He is on Keppra 1000 b.i.d., lisinopril, and pantoprazole. Currently, morphine sulfate was added to the regimen to be given p.r.n. ALLERGIES: Haldol, psychotropic medications, thioridazine, and trazodone. SOCIAL HISTORY: The patient lives with his brother in [facility]. He denies alcohol or drug abuse. FAMILY HISTORY: Unavailable. REVIEW OF SYMPTOMS: Severe pain in his sternal region, upper back, right knee, and right foot. The patient indicated recently seen by Orthopedic surgery, who recommended him to undergo right knee surgery. No headache. No dizziness. No respiratory problems. No urine or bowel incontinence. PHYSICAL EXAMINATION: GENERAL: A well-developed and well-nourished man, not in acute distress, sitting at the bedside, and having his lunch. VITAL SIGNS: Now, stable. HEENT: Head normocephalic. No evidence of acute injury. No otorrhea. No rhinorrhea. NECK: Supple. No meningeal signs. MUSCULOSKELETAL EXAMINATION: He has deformities of right knee and right ankle. There is a palpable tenderness in the sternal region. Peripheral pulses 1+ symmetric. MENTAL STATUS: Fully alert and oriented x3 with no evidence of aphasia or apraxia. Cognitive function normal. CRANIAL NERVE II: Pupils both responding to light and accommodation. Extraocular movement intact. No nystagmus. CRANIAL NERVE V: Normal corneal responses. CRANIAL NERVE VII: No facial asymmetry. CRANIAL NERVE VIII: Normal hearing. CRANIAL NERVES IX THROUGH XII: Within normal limits. MOTOR EXAMINATION: Normal muscle tone. Able to move arms and legs against the gravity. Peripheral pulses 1+ symmetric. SENSORY EXAM: Normal to pinprick and light touch. GAIT: Limping. IMPRESSION: 1. Chronic seizure disorder exacerbation due to noncompliance. 2. Chronic pain syndrome, opiate dependent. 3. Prostate cancer, metastatic. 4. Anxiety syndrome. RECOMMENDATIONS: 1. Restart on Keppra 1000 mg b.i.d. 2. Pain management. 3. Increase Neurontin up to 600 mg t.i.d. 4. client services vice president for placement. Thank you for allowing me to see this interesting patient in neurological consultation. Selvin Alonso M.D. DR: EDEL JOB#: [id number] CC:
[2016-09-07 17:20] LABS: APPEARANCE,URINE CLOUDY; KETONES,URINE NEGATIVE (NEGATIVE); LEUKOCYTE ESTERASE ,URINE 3+ (NEGATIVE); NITRITE,URINE NEGATIVE (NEGATIVE); PH,URINE 9 (4.5-8.0); PROTEIN,URINE 3+ (NEGATIVE); UROBILINOGEN,URINE NORMAL MG/DL (0.0-1.0)
[2016-09-07 17:30] LABS: BACTERIA,URINE MANY /HPF; RBC,URINE 15-20 /HPF (0 - 0); WBC,URINE 20-30 /HPF (0 - 0)
[2016-09-07 17:31] LABS: AMORPHOUS SEDIMENT,UR FEW /LPF
[2016-09-07 17:32] LABS: CREATININE, RANDOM URINE 73.7 mg/dL
[2016-09-07 20:00] VITALS: BP 124/79
--- NOTE | 2016-09-07 22:16 | History and Physical Report ---
DATE OF ADMISSION: 09/07/2016 TIME SEEN: 2 p.m. CONSULTANTS: 1. Maria E Shine M.D. 2. Isaiah Link M.D. 3. Selvin Alonso M.D. 4. Ginna Ware M.D. 5. Jj Gill M.D. CHIEF COMPLAINT: Recurrent seizure, chronic pain, renal failure, and encephalopathy. HISTORY OF PRESENT ILLNESS: This is a 70-year-old male, who currently is homeless, came to my office with the above-mentioned diagnoses, transferred to [facility], diagnosed with the above, and admitted to [facility] floor for further treatment. Currently, slightly anxious in bed and complaining of general pain, 6/10. No complaint. PAST MEDICAL HISTORY: Includes seizure, chronic pain, encephalopathy, and renal failure. PAST SURGICAL HISTORY: The patient denies. MEDICATIONS: Include Neurontin, Keppra, Prinivil, heparin, BuSpar, Fred, dextrose, Mylanta, Ambien, Ativan, and Zofran. ALLERGIES: The patient is allergic to Haldol, thioridazine, and trazodone. SOCIAL HISTORY: No smoking. No alcohol. No intravenous drug abuse. FAMILY HISTORY: Noncontributory. REVIEW OF SYSTEMS: No chest pain. No shortness of breath. No nausea, vomiting, or diarrhea. PHYSICAL EXAMINATION: GENERAL: Slightly anxious in bed, oriented x3, in no acute distress. VITAL SIGNS: Show temperature is 97 degrees, pulse 65, respiratory rate 20, and blood pressure 134/80. CARDIOVASCULAR: No murmurs. LUNGS: Distant and clear. ABDOMEN: Bowel sound positive. Nontender and nondistended. EXTREMITIES: No cyanosis, clubbing, or edema. NEUROLOGIC: The patient moves all extremities, but slightly weak. LABORATORY AND DIAGNOSTIC DATA: Lab exam show white count 4.2, hemoglobin and hematocrit 8.6 and 28, and platelets 421,000. Chloride 110. ALT 43 and alkaline phosphatase 140. Otherwise, CMP is normal. INR is 1.0 and PTT is 24. Urine tox is, salicylate less than 1 and Tylenol less than 10, others are negative. ASSESSMENT: 1. Seizure. 2. Chronic pain. 3. Anemia. 4. Encephalopathy. 5. Renal failure. PLAN: 1. Continue premedications. 2. Pain control. 3. Nephrology followup. 4. Seizure control. 5. OT, PT, and dietary evaluation. 6. CBC and BMP in the morning. 7. Discharge plan to SNF when the patient clears. 8. We will continue to follow this patient. Bobby Isbell D.O. DR: DOC JOB#: [id number] CC:
[2016-09-08] VITALS (7 sets, daily range): BP systolic 88–141; BP diastolic 55–83
[2016-09-08 07:21] LABS: LYMPHOCYTES % (AUTO) 30.4 % (20.0-45.0); MEAN CORPUSCULAR HEMOGLOBIN 26.3 PG (27.0-31.0); MEAN CORPUSCULAR HGB CONC 30.1 G/DL (32.0-36.0); MEAN CORPUSCULAR VOLUME 87 FL (80-99); MEAN PLATELET VOLUME 5.7 FL (6.5-10.1); MONOCYTES % (AUTO) 13.2 % (1.0-10.0); NEUTROPHILS % (AUTO) 50.4 % (45.0-75.0); PLATELET COUNT 443 K/UL (150-450); RED BLOOD COUNT 3.49 M/UL (4.70-6.10); RED CELL DISTRIBUTION WIDTH 16.4 % (11.6-14.8); WHITE BLOOD COUNT 3.5 K/UL (4.8-10.8)
[2016-09-08 07:38] LABS: ANION GAP 10 (5-15); CALCIUM 9.6 mg/dL (8.6-10.2); CARBON DIOXIDE 21 mEQ/L (20-30); CHLORIDE 109 mEQ/L (98-107); GLOMERULAR FILTRATION RATE > 60 mL/min (>60); HEMOLYSIS 2; POTASSIUM 4.2 mEQ/L (3.4-4.9); SODIUM 140 mEQ/L (135-145)
[2016-09-08] MEDS: Lisinopril 20mg tab ORAL SCH (08:09)
[2016-09-08] MEDS: BusPIRone 10mg Tab ORAL SCH ×2 (08:09→17:29)
[2016-09-08] MEDS: Heparin 5000 units/ml inj SUBQ SCH ×2 (08:10→20:38)
[2016-09-08] MEDS: Morphine Sulfate 2mg/ml Inj IVP PRN (08:11)
--- NOTE | 2016-09-08 08:40 | General Progress Note ---
Assessment/Plan Assessment/Plan (1) Lumbar DDD (2) Lumbar Spondylosis (3) Lumbar Radiculopathy (4) Lumbar Herniated disc (5) Multiple Joint OA (6) B/L knee pain Pt will be continued on Morphine and [place]. Pt was d/w Dr. Link and he concurred. Subjective Date patient seen: Sep 08, 2016 Time patient seen: 07:30 - am Allergies: Coded Allergies: HALOPERIDOL (Verified Allergy, Mild, [place] really bad, 07/05/16) Makes him irritable. THIORIDAZINE (Verified Allergy, Mild, [place] really bad, 07/05/16) Makes him violent TRAZODONE (Verified Allergy, Mild, [place] really bad, 07/05/16) Too strong; inability to move. Uncoded Allergies: PSYCHOTROPIC MEDICATION (Allergy, Mild, 08/13/14) Subjective Constitutional: Reports: weakness, Denies: chills, diaphoresis, fever, malaise , no symptoms, other HEENT: Denies: blurred vision, double vision, ear discharge, ear pain, eye pain , mouth pain, mouth swelling, no symptoms, nose congestion, nose pain, other, tearing, throat pain, throat swelling Cardiovascular: Denies: chest pain, edema, irregular heart rate, lightheadedness, no symptoms, other, palpitations, syncope Respiratory: Denies: SOB at rest, SOB with excertion, cough, no symptoms, orthopnea, other, shortness of breath, sputum, stridor, wheezing Gastrointestinal/Abdominal: Denies: abdomen distended, abdominal pain, black stools, blood in stool, constipated, diarrhea, difficulty swallowing, nausea, no symptoms, other, poor appetite, poor fluid intake, rectal bleeding, tarry stools, vomiting Genitourinary: Denies: burning, discharge, flank pain, frequency, hematuria, incontinence, no symptoms, other, pain, urgency Neurologic/Psychiatric: Reports: weakness, Denies: anxiety, depressed, emotional problems, headache, no symptoms, numbness, other, paresthesia, pre- existing deficit, seizure, tingling, tremors Endocrine: Denies: excessive sweating, flushing, increased hunger, increased thirst, increased urine, intolerance to cold, intolerance to heat, no symptoms, other, unexplained weight gain, unexplained weight loss Hematologic/Lymphatic: Denies: anemia, easy bleeding, easy bruising, no symptoms, other Subjective Pt is in bed no signs of distress or pain at this time. He reports that the pain is reduced on the Morphine and [place]. Objective Last 24 Hour Vital Signs Date Time Temp Pulse Resp B/P Pulse Ox O2 Delivery O2 Flow Rate FiO2 09/08/16 08:09 113/87 09/08/16 04:00 97.2 65 20 141/65 100 Room Air 09/08/16 00:00 97.7 78 18 121/75 99 Room Air 09/07/16 20:00 97.0 75 20 124/79 99 Room Air 09/07/16 16:07 98.0 70 20 130/75 100 Room Air 09/07/16 11:52 97.6 65 20 134/80 100 Room Air 09/07/16 09:22 115/73 Intake and Output 09/07/16 09/08/16 19:00 07:00 Intake Total 1320 ml Output Total 1150 ml 450 ml Balance 170 ml -450 ml Intake Oral 1320 ml Output Urine Total 1150 ml 450 ml # Voids 1 Laboratory Tests 09/07/16 13:30: Urine Color Pale yellow, Urine Appearance Cloudy, Urine pH 9, Urine Specific [place] 1.015, Urine Protein 3+H, Urine Glucose (UA) Negative, Urine Ketones Negative, Urine Occult Blood 4+H, Urine Nitrite Negative, Urine Bilirubin Negative, Urine Urobilinogen Normal, Urine Leukocyte Esterase 3+H, Urine RBC 15- 20H, Urine WBC 20-30H, Urine Squamous Epithelial Cells None, Urine Amorphous Sediment FewH, Urine Bacteria ManyH, Urine Eosinophils None seen, Urine Random Creatinine [Pending], Urine Random Microalbumin [Pending], Urine Random Total Protein 95, Urine Creatinine 73.7, Urine Microalbumin/Creatinine Ratio [Pending] 09/08/16 05:40: White Blood Count 3.5L, Red Blood Count 3.49L, Hemoglobin 9.2L, Hematocrit 30.4L , Mean Corpuscular Volume 87, Mean Corpuscular Hemoglobin 26.3L, Mean Corpuscular Hemoglobin Concent 30.1L, Red Cell Distribution Width 16.4H, Platelet Count 443, Mean Platelet Volume 5.7L, Neutrophils (%) (Auto) 50.4, Lymphocytes (%) (Auto) 30.4, Monocytes (%) (Auto) 13.2H, Eosinophils (%) (Auto) 5.0H, Basophils (%) (Auto) 1.0, Sodium Level 140, Potassium Level 4.2, Chloride Level 109H, Carbon Dioxide Level 21, Anion Gap 10, Blood Urea Nitrogen 15, Creatinine 1.0, Estimat Glomerular Filtration Rate > 60, Glucose Level 87, Calcium Level 9.6 Height (Feet): 5 Height (Inches): 9.00 Weight (Pounds): 160 Objective General Appearance: no apparent distress, alert EENT: PERRL/EOMI, normal ENT inspection Neck: non-tender, normal alignment Cardiovascular: normal rate, regular rhythm Respiratory/Chest: decreased breath sounds Abdomen: non tender, soft Extremities: non-tender Edema: no edema noted Arm (L), no edema noted Arm (R), no edema noted Leg (L), no edema noted Leg (R), no edema noted Pedal (L), no edema noted Pedal (R), no edema noted Generalized Neurologic: alert, oriented x 3 Skin: warm/dry VICTOR M FLORES PSonny Sep 08, 2016 08:40
--- NOTE | 2016-09-08 09:44 | Nephrology Progress Note ---
Assessment/Plan Assessment 1. Acute renal failure, prerenal azotemia. 2. Breakthrough seizure, most likely due to noncompliant with medication. 3. Anemia. 4. Uncontrolled hypertension. Plan plan to continue current meds pain management bp now is under controlled Subjective Constitutional: Reports: no symptoms HEENT: Reports: no symptoms Genitourinary: Reports: no symptoms Neurologic/Psychiatric: Reports: no symptoms Subjective alert and awake no seizure c/o body pain Objective Objective Last 24 Hour Vital Signs Date Time Temp Pulse Resp B/P Pulse Ox O2 Delivery O2 Flow Rate FiO2 09/08/16 08:15 97.2 87 14 113/60 100 09/08/16 08:09 113/87 09/08/16 04:00 97.2 65 20 141/65 100 Room Air 09/08/16 00:00 97.7 78 18 121/75 99 Room Air 09/07/16 20:00 97.0 75 20 124/79 99 Room Air 09/07/16 16:07 98.0 70 20 130/75 100 Room Air 09/07/16 11:52 97.6 65 20 134/80 100 Room Air Intake and Output 09/07/16 09/08/16 19:00 07:00 Intake Total 1320 ml Output Total 1150 ml 450 ml Balance 170 ml -450 ml Intake Oral 1320 ml Output Urine Total 1150 ml 450 ml # Voids 1 Laboratory Tests 09/07/16 13:30: Urine Color Pale yellow, Urine Appearance Cloudy, Urine pH 9, Urine Specific [place] 1.015, Urine Protein 3+H, Urine Glucose (UA) Negative, Urine Ketones Negative, Urine Occult Blood 4+H, Urine Nitrite Negative, Urine Bilirubin Negative, Urine Urobilinogen Normal, Urine Leukocyte Esterase 3+H, Urine RBC 15- 20H, Urine WBC 20-30H, Urine Squamous Epithelial Cells None, Urine Amorphous Sediment FewH, Urine Bacteria ManyH, Urine Eosinophils None seen, Urine Random Creatinine [Pending], Urine Random Microalbumin [Pending], Urine Random Total Protein 95, Urine Creatinine 73.7, Urine Microalbumin/Creatinine Ratio [Pending] 09/08/16 05:40: White Blood Count 3.5L, Red Blood Count 3.49L, Hemoglobin 9.2L, Hematocrit 30.4L , Mean Corpuscular Volume 87, Mean Corpuscular Hemoglobin 26.3L, Mean Corpuscular Hemoglobin Concent 30.1L, Red Cell Distribution Width 16.4H, Platelet Count 443, Mean Platelet Volume 5.7L, Neutrophils (%) (Auto) 50.4, Lymphocytes (%) (Auto) 30.4, Monocytes (%) (Auto) 13.2H, Eosinophils (%) (Auto) 5.0H, Basophils (%) (Auto) 1.0, Sodium Level 140, Potassium Level 4.2, Chloride Level 109H, Carbon Dioxide Level 21, Anion Gap 10, Blood Urea Nitrogen 15, Creatinine 1.0, Estimat Glomerular Filtration Rate > 60, Glucose Level 87, Calcium Level 9.6 Height (Feet): 5 Height (Inches): 9.00 Weight (Pounds): 160 Objective HEAD AND NECK: No JVP. No LAD. No thyromegaly. Extraocular movement intact. Pupils are reactive to light and accommodation. LUNGS: Clear to auscultation. CARDIAC: Regular rate and rhythm. S1 and S2. No murmur. No rub. ABDOMEN: Soft, nontender, and nondistended. EXTREMITIES: No edema. No clubbing. No cyanosis. NATHANAEL ANN Sep 08, 2016 09:44
--- NOTE | 2016-09-08 12:08 | General Progress Note ---
Assessment/Plan Problem List: (1) UTI (urinary tract infection) ICD Codes: N39.0 - Urinary tract infection, site not specified SNOMED: 26397882 (2) Renal insufficiency ICD Codes: N28.9 - Disorder of kidney and ureter, unspecified SNOMED: 489287953, 438919942 (3) Chronic pain ICD Codes: G89.29 - Other chronic pain SNOMED: 40383602 (4) Anemia ICD Codes: D64.9 - Anemia, unspecified SNOMED: 231875837 Qualifiers: Qualified Codes: D64.9 - Anemia, unspecified (5) Seizure disorder ICD Codes: G40.909 - Epilepsy, unspecified, not intractable, without status epilepticus SNOMED: 970159341 (6) Chronic low back pain ICD Codes: G89.29 - Other chronic pain; M54.5 - Chronic low back pain SNOMED: 960877900 Qualifiers: Qualified Codes: M54.5 - Low back pain; G89.29 - Other chronic pain Status: stable, progressing, tolerating diet Assessment/Plan ot pt abx pain seizure control cbc bmp am snf eval Subjective Constitutional: Reports: weakness Allergies: Coded Allergies: HALOPERIDOL (Verified Allergy, Mild, [place] really bad, 07/05/16) Makes him irritable. THIORIDAZINE (Verified Allergy, Mild, [place] really bad, 07/05/16) Makes him violent TRAZODONE (Verified Allergy, Mild, [place] really bad, 07/05/16) Too strong; inability to move. Uncoded Allergies: PSYCHOTROPIC MEDICATION (Allergy, Mild, 08/13/14) All Systems: reviewed and negative except above Subjective al anxious c/o gen pain Objective Last 24 Hour Vital Signs Date Time Temp Pulse Resp B/P Pulse Ox O2 Delivery O2 Flow Rate FiO2 09/08/16 08:15 97.2 87 14 113/60 100 09/08/16 08:09 113/87 09/08/16 04:00 97.2 65 20 141/65 100 Room Air 09/08/16 00:00 97.7 78 18 121/75 99 Room Air 09/07/16 20:00 97.0 75 20 124/79 99 Room Air 09/07/16 16:07 98.0 70 20 130/75 100 Room Air Intake and Output 09/07/16 09/08/16 19:00 07:00 Intake Total 1320 ml Output Total 1150 ml 450 ml Balance 170 ml -450 ml Intake Oral 1320 ml Output Urine Total 1150 ml 450 ml # Voids 1 Laboratory Tests 09/07/16 13:30: Urine Color Pale yellow, Urine Appearance Cloudy, Urine pH 9, Urine Specific [facility] 1.015, Urine Protein 3+H, Urine Glucose (UA) Negative, Urine Ketones Negative, Urine Occult Blood 4+H, Urine Nitrite Negative, Urine Bilirubin Negative, Urine Urobilinogen Normal, Urine Leukocyte Esterase 3+H, Urine RBC 15- 20H, Urine WBC 20-30H, Urine Squamous Epithelial Cells None, Urine Amorphous Sediment FewH, Urine Bacteria ManyH, Urine Eosinophils None seen, Urine Random Creatinine [Pending], Urine Random Microalbumin [Pending], Urine Random Total Protein 95, Urine Creatinine 73.7, Urine Microalbumin/Creatinine Ratio [Pending] 09/08/16 05:40: White Blood Count 3.5L, Red Blood Count 3.49L, Hemoglobin 9.2L, Hematocrit 30.4L , Mean Corpuscular Volume 87, Mean Corpuscular Hemoglobin 26.3L, Mean Corpuscular Hemoglobin Concent 30.1L, Red Cell Distribution Width 16.4H, Platelet Count 443, Mean Platelet Volume 5.7L, Neutrophils (%) (Auto) 50.4, Lymphocytes (%) (Auto) 30.4, Monocytes (%) (Auto) 13.2H, Eosinophils (%) (Auto) 5.0H, Basophils (%) (Auto) 1.0, Sodium Level 140, Potassium Level 4.2, Chloride Level 109H, Carbon Dioxide Level 21, Anion Gap 10, Blood Urea Nitrogen 15, Creatinine 1.0, Estimat Glomerular Filtration Rate > 60, Glucose Level 87, Calcium Level 9.6 Height (Feet): 5 Height (Inches): 9.00 Weight (Pounds): 160 General Appearance: lethargic EENT: normal ENT inspection Neck: normal alignment Cardiovascular: normal peripheral pulses, normal rate, regular rhythm Respiratory/Chest: chest wall non-tender, lungs clear, normal breath sounds Abdomen: normal bowel sounds, non tender, soft Extremities: normal inspection Edema: no edema noted Arm (L), no edema noted Arm (R), no edema noted Leg (L), no edema noted Leg (R), no edema noted Pedal (L), no edema noted Pedal (R), no edema noted Generalized Neurologic: responsive, motor weakness Skin: normal pigmentation, warm/dry YU GARZA Sep 08, 2016 12:08
[2016-09-08 12:17] LABS: CREATININE RANDOM URINE 67.1 mg/dL (Not Estab.); MICROALBUMIN/CREATININE RATIO 118.8 mg/g creat (0.0-30.0)
--- NOTE | 2016-09-08 12:40 | Neurology Progress Note ---
Interim History Interim History ROS Limited/Unobtainable: No Complaints: pain chest ,R knee/foot, urine incontinence Events: stable Objective Physical Exam Last Vital Signs Date Time Temp Pulse Resp B/P Pulse Ox O2 Delivery O2 Flow Rate FiO2 09/08/16 12:15 93.7 67 11 132/83 100 Room Air Laboratory Tests Test 09/07/16 13:30 09/08/16 05:40 Urine Color Pale yellow Urine Appearance Cloudy Urine pH 9 (4.5-8.0) Urine Specific [place] 1.015 (1.005-1.035) Urine Protein 3+ (NEGATIVE) H Urine Glucose (UA) Negative (NEGATIVE) Urine Ketones Negative (NEGATIVE) Urine Occult Blood 4+ (NEGATIVE) H Urine Nitrite Negative (NEGATIVE) Urine Bilirubin Negative (NEGATIVE) Urine Urobilinogen Normal MG/DL (0.0-1.0) Urine Leukocyte Esterase 3+ (NEGATIVE) H Urine RBC 15-20 /HPF (0 - 0) H Urine WBC 20-30 /HPF (0 - 0) H Urine Squamous Epithelial Cells None /LPF (NONE/OCC) Urine Amorphous Sediment Few /LPF (NONE) H Urine Bacteria Many /HPF (NONE) H Urine Eosinophils None seen Urine Random Creatinine 67.1 mg/dL (Not Estab.) Urine Random Microalbumin 79.7 ug/mL (Not Estab.) Urine Random Total Protein 95 mg/dL Urine Creatinine 73.7 mg/dL Urine Microalbumin/Creatinine Ratio 118.8 mg/g creat White Blood Count 3.5 K/UL (4.8-10.8) L Red Blood Count 3.49 M/UL (4.70-6.10) L Hemoglobin 9.2 G/DL (14.2-18.0) L Hematocrit 30.4 % (42.0-52.0) L Mean Corpuscular Volume 87 FL (80-99) Mean Corpuscular Hemoglobin 26.3 PG (27.0-31.0) L Mean Corpuscular Hemoglobin Concent 30.1 G/DL (32.0-36.0) L Red Cell Distribution Width 16.4 % (11.6-14.8) H Platelet Count 443 K/UL (150-450) Mean Platelet Volume 5.7 FL (6.5-10.1) L Neutrophils (%) (Auto) 50.4 % (45.0-75.0) Lymphocytes (%) (Auto) 30.4 % (20.0-45.0) Monocytes (%) (Auto) 13.2 % (1.0-10.0) H Eosinophils (%) (Auto) 5.0 % (0.0-3.0) H Basophils (%) (Auto) 1.0 % (0.0-2.0) Sodium Level 140 mEQ/L (135-145) Potassium Level 4.2 mEQ/L (3.4-4.9) Chloride Level 109 mEQ/L (98-107) H Carbon Dioxide Level 21 mEQ/L (20-30) Anion Gap 10 (5-15) Blood Urea Nitrogen 15 mg/dL (7-23) Creatinine 1.0 mg/dL (0.7-1.2) Estimat Glomerular Filtration Rate > 60 mL/min (>60) Glucose Level 87 mg/dL (74-106) Calcium Level 9.6 mg/dL (8.6-10.2) General: well developed, well nourished, no acute distress Head: normocophalic, atraumatic Neck: no rigidity Neurologic Exam Mental Status: awake, alert, oriented x4, normal cognition, good mathematical skills, normal recent memory, normal remote memory, preserved visuospatial function Speech: normal speech, no dysarthia Language: normal language, no aphasia Cranial Nerve II: fundus normal, visual dodd, no papilledema Cranial Nerves III, IV, : PERRLA, EOMI, pupils Cranial Nerve V: normal facial sensations, temporales function normal, masseters function normal, pterygoids function normal Cranial Nerve VII: no facial asymmetry, normal facial expressions Cranial Nerve VIII: normal hearing, no nystagmus Cranial Nerve IX: normal palate elevation, gag response Cranial Nerve X: no voice hoarseness Cranial Nerve XI: SCM symmetric, trapezii function normal Cranial Nerve XII: tongue midline, no tongue atrophy/fasciculations Motor System: normal muscle tone, no involuntary movement, no muscle wasting Sensory: normal pinprick, normal light touch, normal position sense Coordination: normal finger to nose bilaterally, normal heel to escalante bilaterally Deep Tendon Reflexes: 0 ankle (L), 0 ankle (R), 0 bicep (L), 0 bicep (R), 0 brachioradialis (L), 0 brachioradialis (R), 0 knee (L), 0 knee (R), 0 tricep (L) , 0 tricep (R) Reflexes: mute plantar (L), mute plantar (R) Stance: normal Gait: stable, normal regular, heel + toe gait Impression/Recommendations Problems: (1) Seizure disorder (2) exacerbation of seizure d/o 2/2 noncompliance (3) Anxiety (4) chronic pain, opiate and benzo dependent Status: stable, progressing, tolerating diet Recommendations #[id number] cont present rx placement MAMADOU MCALLISTER Sep 08, 2016 12:40
--- NOTE | 2016-09-08 15:17 | Infectious Diseases Prog Note ---
Assessment/Plan Problems: (1) UTI (urinary tract infection) Assessment & Plan: will start ceftriaxon and send urine culture (2) Prostate cancer, primary, 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 site Assessment & Plan: recommend oncology consult for evaluation and management (3) Acute renal failure (ARF) Assessment & Plan: suspect dehydration, continue ivf, consult renal (4) Colonization with VRE (vancomycin-resistant enterococcus) Assessment & Plan: keep in contact isolation (5) Seizure disorder Assessment & Plan: on keppra, continue neuro check (6) Chronic low back pain Assessment & Plan: continue pain meds Subjective Allergies: Coded Allergies: HALOPERIDOL (Verified Allergy, Mild, [place] really bad, 07/05/16) Makes him irritable. THIORIDAZINE (Verified Allergy, Mild, [place] really bad, 07/05/16) Makes him violent TRAZODONE (Verified Allergy, Mild, [place] really bad, 07/05/16) Too strong; inability to move. Uncoded Allergies: PSYCHOTROPIC MEDICATION (Allergy, Mild, 08/13/14) Objective Vital Signs Last 24 Hour Vital Signs Date Time Temp Pulse Resp B/P Pulse Ox O2 Delivery O2 Flow Rate FiO2 09/08/16 12:15 93.7 67 11 132/83 100 Room Air 09/08/16 08:15 97.2 87 14 113/60 100 09/08/16 08:09 113/87 09/08/16 04:00 97.2 65 20 141/65 100 Room Air 09/08/16 00:00 97.7 78 18 121/75 99 Room Air 09/07/16 20:00 97.0 75 20 124/79 99 Room Air 09/07/16 16:07 98.0 70 20 130/75 100 Room Air Height (Feet): 5 Height (Inches): 9.00 Weight (Pounds): 160 Microbiology Date/Time Source Procedure Growth Status 09/07/16 13:30 Urine,Clean Catch Urine Culture - Preliminary Gram Negative Bacillus 1 Resulted Laboratory Tests Test 09/08/16 05:40 White Blood Count 3.5 K/UL (4.8-10.8) L Red Blood Count 3.49 M/UL (4.70-6.10) L Hemoglobin 9.2 G/DL (14.2-18.0) L Hematocrit 30.4 % (42.0-52.0) L Mean Corpuscular Volume 87 FL (80-99) Mean Corpuscular Hemoglobin 26.3 PG (27.0-31.0) L Mean Corpuscular Hemoglobin Concent 30.1 G/DL (32.0-36.0) L Red Cell Distribution Width 16.4 % (11.6-14.8) H Platelet Count 443 K/UL (150-450) Mean Platelet Volume 5.7 FL (6.5-10.1) L Neutrophils (%) (Auto) 50.4 % (45.0-75.0) Lymphocytes (%) (Auto) 30.4 % (20.0-45.0) Monocytes (%) (Auto) 13.2 % (1.0-10.0) H Eosinophils (%) (Auto) 5.0 % (0.0-3.0) H Basophils (%) (Auto) 1.0 % (0.0-2.0) Sodium Level 140 mEQ/L (135-145) Potassium Level 4.2 mEQ/L (3.4-4.9) Chloride Level 109 mEQ/L (98-107) H Carbon Dioxide Level 21 mEQ/L (20-30) Anion Gap 10 (5-15) Blood Urea Nitrogen 15 mg/dL (7-23) Creatinine 1.0 mg/dL (0.7-1.2) Estimat Glomerular Filtration Rate > 60 mL/min (>60) Glucose Level 87 mg/dL (74-106) Calcium Level 9.6 mg/dL (8.6-10.2) Current Medications Medications (Trade) Dose Ordered Sig/Jesi Route PRN Reason Start Time Stop Time Status Last Admin Dose Admin Acetaminophen (Tylenol) 650 mg Q4H PRN ORAL fever 09/06/16 16:30 10/06/16 16:29 Acetaminophen/ Hydrocodone Bitart ([place] 10/325) 1 ea Q6H PRN ORAL For breakthrough pain 09/08/16 14:30 09/15/16 14:29 Al Hydroxide/Mg Hydroxide (Mylanta II) 30 ml Q6H PRN ORAL dyspepsia 09/06/16 16:30 10/06/16 16:29 Buspirone HCl (Buspar) 10 mg TWICE A DAY ORAL 09/06/16 18:30 10/06/16 18:29 09/08/16 08:09 Ceftriaxone Sodium/Dextrose (Rocephin/D5W) 55 ml @ 110 mls/hr Q24H IVPB 09/08/16 15:00 09/15/16 14:59 Dextrose (Dextrose 50%) STAT PRN IV Hypoglycemia 09/06/16 16:30 10/06/16 16:29 Gabapentin (Neurontin) 400 mg THREE TIMES A DAY ORAL 09/07/16 14:00 10/07/16 13:59 09/08/16 12:35 Heparin Sodium (Porcine) (Heparin 5000 units/ml) 5,000 units EVERY 12 HOURS SUBQ 09/06/16 21:00 10/06/16 20:59 09/08/16 08:10 Levetiracetam (Keppra) 1,500 mg Q12HR ORAL 09/07/16 14:00 10/07/16 13:59 09/08/16 08:09 Lisinopril (Prinivil) 20 mg DAILY ORAL 09/07/16 09:00 10/07/16 08:59 09/08/16 08:09 Lorazepam (Ativan 2mg/ml 1ml) 2 mg Q1H PRN IV seizures 09/06/16 16:30 09/13/16 16:29 Memantine 5 mg 5 mg BID ORAL 09/08/16 18:00 10/08/16 17:59 Morphine Sulfate (Morphine Sulfate) 1 mg Q4H PRN IVP For Pain 7-09/06/16 16:30 09/13/16 16:29 09/08/16 08:11 Ondansetron HCl (Zofran) 4 mg Q6H PRN IVP Nausea & Vomiting 09/06/16 16:30 10/06/16 16:29 Polyethylene Glycol (Miralax) 17 gm HSPRN PRN ORAL Constipation 09/06/16 16:30 10/06/16 16:29 Zolpidem Tartrate (Ambien) 5 mg HSPRN PRN ORAL Insomnia 09/06/16 16:30 10/06/16 16:29 Lizzy Rothman M.D. Sep 08, 2016 15:17
[2016-09-08] MEDS: cefTRIAXone 1 GM in D5W 55 ML IVPB SCH (15:22)
--- NOTE | 2016-09-08 16:16 | Consultation ---
DATE OF CONSULTATION: 09/07/2016 INITIAL PSYCHIATRIC CONSULTATION HISTORY OF PRESENT ILLNESS: This is a male patient, who continues to be confused and disorganized, poor cognition secondary to the progression of his medical illness. This patient came on to the unit, he came here with anxiety, generalized pain, seizure disorder, and he has no logical plan for his own self-care. He came with recurrent seizure and chronic pain, but he also has altered mental status secondary to the progression of his medical illness. Psychiatric consultation requested for this patient. Seen and assessed at bedside, he was confused and disorganized. MEDICAL HISTORY: Includes renal failure, chronic pain, and seizure disorder. ALLERGIES: Haldol, Navane, and trazodone. SOCIAL HISTORY: Financially supported by [employer] and Medicare. SUBSTANCE ABUSE HISTORY: Denies drug or alcohol use. SOCIAL HISTORY: The patient is homeless, but financially supported by [employer] and Medicare. MENTAL STATUS EXAMINATION: This is a 70-year-old male with psychomotor retardation. Mood is depressed. Affect guarded and restricted. Thought process disorganized and logical. Insight and judgment is poor. DIAGNOSIS: Paranoid schizophrenia with acute exacerbation. PLAN: My plan for this patient is I am going to treat this patient with psychotropic medication regimen consisting of Neurontin 300 mg three times a day, BuSpar 10 mg twice a day to control his anxiety, and Namenda 5 mg twice a day to prevent any decline in his cognition. He will continue to be followed by Psychiatry throughout hospital course. Chart reviewed and discussed with staff. The patient was seen and assessed at bedside. I would like to thank, Dr. Bobby Isbell, for this interesting consultation. Jj Gill M.D. DR: JOSE JOB#: [id number] CC:
--- NOTE | 2016-09-08 17:16 | Consultation ---
DATE OF CONSULTATION: 09/07/2016 PSYCHIATRIC CONSULTATION HISTORY OF PRESENT ILLNESS: This is a a male patient, who was admitted to the hospital at [facility]. He has seizure disorder, chronic pain, irritability, agitation, and mood lability. He has got no logical plan for his own self-care. Plan for this patient is to treat him with Neurontin 400 mg twice a day, BuSpar 10 mg twice a day, and Namenda 5 mg twice a day. He came in to the hospital because of seizures, chronic pain, metabolic encephalopathy. At home, he is very irritable, agitated, confused, and disorganized. That is why, there was a psychiatric consultation, but his cognition has declined below baseline. ALLERGIES: As far as his allergy history, he is allergic to Haldol, Navane, and trazodone. SOCIAL HISTORY: Currently homeless. Financially supported by [employer] and Medicare. SUBSTANCE ABUSE HISTORY: Denies drug and alcohol use. MENTAL STATUS EXAMINATION: The patient is a 70-year-old male with psychomotor retardation. Mood is depressed. Affect guarded and restricted. Thought process is disorganized and illogical. Denies any current suicidal or homicidal thoughts. Insight and judgment is poor. DIAGNOSIS: Paranoid schizophrenia with acute exacerbation. Rule out dementia with psychosis. PLAN: Treat him with Neurontin 400 mg three times a day, BuSpar 10 mg twice a day for anxiety, and Namenda 5 mg twice a day to prevent any further decline in his cognition. Chart reviewed and discussed with staff. Jj Gill M.D. DR: JIGNA JOB#: [id number] CC:
[2016-09-08] MEDS: Memantine 5 MG TAB ORAL SCH (17:29)
--- NOTE | 2016-09-08 18:46 | Cardiology Progress Note ---
Assessment/Plan Assessment/Plan The patient is seen and examined, full consult note is dictated. Objective Last 24 Hour Vital Signs Date Time Temp Pulse Resp B/P Pulse Ox O2 Delivery O2 Flow Rate FiO2 09/08/16 18:40 112/65 09/08/16 16:00 97.9 85 19 88/55 100 Room Air 09/08/16 12:15 93.7 67 11 132/83 100 Room Air 09/08/16 08:15 97.2 87 14 113/60 100 09/08/16 08:09 113/87 09/08/16 04:00 97.2 65 20 141/65 100 Room Air 09/08/16 00:00 97.7 78 18 121/75 99 Room Air 09/07/16 20:00 97.0 75 20 124/79 99 Room Air Intake and Output 09/07/16 09/08/16 19:00 07:00 Intake Total 1320 ml Output Total 1150 ml 450 ml Balance 170 ml -450 ml Intake Oral 1320 ml Output Urine Total 1150 ml 450 ml # Voids 1 Laboratory Tests Test 09/08/16 05:40 White Blood Count 3.5 K/UL (4.8-10.8) L Red Blood Count 3.49 M/UL (4.70-6.10) L Hemoglobin 9.2 G/DL (14.2-18.0) L Hematocrit 30.4 % (42.0-52.0) L Mean Corpuscular Volume 87 FL (80-99) Mean Corpuscular Hemoglobin 26.3 PG (27.0-31.0) L Mean Corpuscular Hemoglobin Concent 30.1 G/DL (32.0-36.0) L Red Cell Distribution Width 16.4 % (11.6-14.8) H Platelet Count 443 K/UL (150-450) Mean Platelet Volume 5.7 FL (6.5-10.1) L Neutrophils (%) (Auto) 50.4 % (45.0-75.0) Lymphocytes (%) (Auto) 30.4 % (20.0-45.0) Monocytes (%) (Auto) 13.2 % (1.0-10.0) H Eosinophils (%) (Auto) 5.0 % (0.0-3.0) H Basophils (%) (Auto) 1.0 % (0.0-2.0) Sodium Level 140 mEQ/L (135-145) Potassium Level 4.2 mEQ/L (3.4-4.9) Chloride Level 109 mEQ/L (98-107) H Carbon Dioxide Level 21 mEQ/L (20-30) Anion Gap 10 (5-15) Blood Urea Nitrogen 15 mg/dL (7-23) Creatinine 1.0 mg/dL (0.7-1.2) Estimat Glomerular Filtration Rate > 60 mL/min (>60) Glucose Level 87 mg/dL (74-106) Calcium Level 9.6 mg/dL (8.6-10.2) Microbiology Date/Time Source Procedure Growth Status 09/07/16 13:30 Urine,Clean Catch Urine Culture - Preliminary Gram Negative Bacillus 1 Resulted ALEXIS YANG Sep 08, 2016 18:46
--- NOTE | 2016-09-08 19:01 | Consultation ---
DATE OF CONSULTATION: INFECTIOUS DISEASE CONSULTATION REQUESTING PHYSICIAN: Bobby Isbell D.O. REASON FOR CONSULTATION: Urinary tract infection, recommendation for antibiotics therapy. HISTORY OF PRESENT ILLNESS: The patient is a 70-year-old male with metastatic prostate cancer, seizure disorder, and chronic back pain, who presented to the hospital for possible recurrent seizure episode and persistent low back pain. The patient was admitted two weeks ago to the emergency room with seizure disorder. He was started on Keppra and discharged home. He was unable to fill his prescription for Keppra due to insurance issue, so he was referred back to the emergency room by his primary care physician to be admitted again and to be continued on seizure medication and said he is able to obtain his outpatient medication from the pharmacy to prevent recurrent seizure. The patient is incontinent and complain of dysuria, but no hematuria. His urinalysis at the emergency room showed evidence of infection, so I was consulted by the primary provider for antibiotics treatment and further management. REVIEW OF SYSTEMS: A 12-point of system reviews were all negative apart from the one I mentioned above in my History and Physical. PAST MEDICAL HISTORY: Significant for coronary artery disease, hypertension, asthma, cancer, gastroesophageal reflux disease, and seizure disorder. PAST SURGICAL HISTORY: Negative. FAMILY HISTORY: Noncontributory. SOCIAL HISTORY: The patient is homeless, lives with his daughter sometimes. Denied using any drugs, tobacco, or alcohol. MEDICATIONS: He is on memantine, hydrocodone, gabapentin, Keppra, Prinivil, heparin, BuSpar, Mylanta, Ambien, Ativan, Zofran, MiraLax, and Tylenol. ALLERGIES: He is allergic thioridazine, and trazodone. LABORATORY DATA: Labs showed white count of 3.5 and hemoglobin of 9.2. BUN of 15 and creatinine of 1. Urinalysis showed +3 leukocyte esterase, WBC 20 to 50, and urine bacteria many. MICROBIOLOGY: Urine culture showed gram-negative bacillus. IMAGING: Not available at this point. PHYSICAL EXAMINATION: GENERAL: Middle-aged male, lying in bed, awake, alert, not in distress. VITAL SIGNS: Temperature is 93.7 degrees, pulse 67, respiration 11, blood pressure 132/83, and saturation 100% on room air. HEENT: Normocephalic and atraumatic. Pupils are reactive to light. Moist oral mucosa. No exudate. NECK: Supple. No lymphadenopathy. CARDIOVASCULAR: Regular rate and rhythm. No murmur or gallop. LUNGS: Clear bilaterally. No wheezing or rhonchi. ABDOMEN: Soft, nontender, and nondistended. Positive bowel sounds. No hepatosplenomegaly. EXTREMITIES: No edema or cyanosis. Degenerative joint disease in both knee joints. ASSESSMENT AND RECOMMENDATION: 1. Urinary tract infection. We will start the patient on ceftriaxone, empiric treatment, and send urine culture. 2. Seizure disorder, possible breakthrough. Continue Keppra. Continue neuro checks. Neurology is following. 3. Metastatic prostate cancer. Consult oncology for followup and management. 4. Coronary artery disease. Continue cardiac medications. Continue to monitor. Follow up with cardiology. 5. Asthma. Continue inhaler and oxygen treatment as needed. Lizzy Rothman M.D. DR: THALIA JOB#: [id number] CC:
[2016-09-08 19:08] LABS: TROPONIN I < 0.30 ng/mL (<=0.30)
--- NOTE | 2016-09-08 19:30 | Pulmonology Progress Note ---
Assessment/Plan Problems: (1) UTI (urinary tract infection) (2) Renal insufficiency (3) Chronic pain (4) Anemia Assessment/Plan [facility] cultures abx pain management check electrolytes all labs and notes reviewed. Subjective Interval Events: late note 09/07 Constitutional: Reports: no symptoms HEENT: Repors: no symptoms Respiratory: Reports: no symptoms Allergies: Coded Allergies: HALOPERIDOL (Verified Allergy, Mild, [place] really bad, 07/05/16) Makes him irritable. THIORIDAZINE (Verified Allergy, Mild, [place] really bad, 07/05/16) Makes him violent TRAZODONE (Verified Allergy, Mild, [place] really bad, 07/05/16) Too strong; inability to move. Uncoded Allergies: PSYCHOTROPIC MEDICATION (Allergy, Mild, 08/13/14) Objective Last 24 Hour Vital Signs Date Time Temp Pulse Resp B/P Pulse Ox O2 Delivery O2 Flow Rate FiO2 09/08/16 18:40 112/65 09/08/16 16:00 97.9 85 19 88/55 100 Room Air 09/08/16 12:15 93.7 67 11 132/83 100 Room Air 09/08/16 08:15 97.2 87 14 113/60 100 09/08/16 08:09 113/87 09/08/16 04:00 97.2 65 20 141/65 100 Room Air 09/08/16 00:00 97.7 78 18 121/75 99 Room Air 09/07/16 20:00 97.0 75 20 124/79 99 Room Air Intake and Output 09/07/16 09/08/16 19:00 07:00 Intake Total 1320 ml Output Total 1150 ml 450 ml Balance 170 ml -450 ml Intake Oral 1320 ml Output Urine Total 1150 ml 450 ml # Voids 1 Objective General Appearance: WD/WN HEENT: normocephalic, atraumatic Respiratory/Chest: chest wall non-tender, lungs clear Cardiovascular: normal peripheral pulses, normal rate Abdomen: normal bowel sounds, soft, non tender Extremities: no cyanosis, no clubbing Microbiology Date/Time Source Procedure Growth Status 09/07/16 13:30 Urine,Clean Catch Urine Culture - Preliminary Gram Negative Bacillus 1 Resulted Laboratory Tests 09/08/16 05:40: White Blood Count 3.5L, Red Blood Count 3.49L, Hemoglobin 9.2L, Hematocrit 30.4L , Mean Corpuscular Volume 87, Mean Corpuscular Hemoglobin 26.3L, Mean Corpuscular Hemoglobin Concent 30.1L, Red Cell Distribution Width 16.4H, Platelet Count 443, Mean Platelet Volume 5.7L, Neutrophils (%) (Auto) 50.4, Lymphocytes (%) (Auto) 30.4, Monocytes (%) (Auto) 13.2H, Eosinophils (%) (Auto) 5.0H, Basophils (%) (Auto) 1.0, Sodium Level 140, Potassium Level 4.2, Chloride Level 109H, Carbon Dioxide Level 21, Anion Gap 10, Blood Urea Nitrogen 15, Creatinine 1.0, Estimat Glomerular Filtration Rate > 60, Glucose Level 87, Calcium Level 9.6 09/08/16 18:15: Troponin I < 0.30 Current Medications Medications (Trade) Dose Ordered Sig/Jesi Route PRN Reason Start Time Stop Time Status Last Admin Dose Admin Acetaminophen (Tylenol) 650 mg Q4H PRN ORAL fever 09/06/16 16:30 10/06/16 16:29 Acetaminophen/ Hydrocodone Bitart ([place] 10/325) 1 ea Q6H PRN ORAL For breakthrough pain 09/08/16 14:30 09/15/16 14:29 Al Hydroxide/Mg Hydroxide (Mylanta II) 30 ml Q6H PRN ORAL dyspepsia 09/06/16 16:30 10/06/16 16:29 Buspirone HCl (Buspar) 10 mg TWICE A DAY ORAL 09/06/16 18:30 10/06/16 18:29 09/08/16 17:29 Ceftriaxone Sodium/Dextrose (Rocephin/D5W) 55 ml @ 110 mls/hr Q24H IVPB 09/08/16 15:00 09/15/16 14:59 09/08/16 15:22 Dextrose (Dextrose 50%) STAT PRN IV Hypoglycemia 09/06/16 16:30 10/06/16 16:29 Gabapentin (Neurontin) 400 mg THREE TIMES A DAY ORAL 09/07/16 14:00 10/07/16 13:59 09/08/16 17:29 Heparin Sodium (Porcine) (Heparin 5000 units/ml) 5,000 units EVERY 12 HOURS SUBQ 09/06/16 21:00 10/06/16 20:59 09/08/16 08:10 Levetiracetam (Keppra) 1,500 mg Q12HR ORAL 09/07/16 14:00 10/07/16 13:59 09/08/16 08:09 Lisinopril (Prinivil) 20 mg DAILY ORAL 09/07/16 09:00 10/07/16 08:59 09/08/16 08:09 Lorazepam (Ativan 2mg/ml 1ml) 2 mg Q1H PRN IV seizures 09/06/16 16:30 09/13/16 16:29 Memantine 5 mg 5 mg BID ORAL 09/08/16 18:00 10/08/16 17:59 09/08/16 17:29 Morphine Sulfate (Morphine Sulfate) 1 mg Q4H PRN IVP For Pain -09/06/16 16:30 09/13/16 16:29 09/08/16 08:11 Ondansetron HCl (Zofran) 4 mg Q6H PRN IVP Nausea & Vomiting 09/06/16 16:30 10/06/16 16:29 Polyethylene Glycol (Miralax) 17 gm HSPRN PRN ORAL Constipation 09/06/16 16:30 10/06/16 16:29 Zolpidem Tartrate (Ambien) 5 mg HSPRN PRN ORAL Insomnia 09/06/16 16:30 10/06/16 16:29 LAQUITA VAZQUEZ Sep 08, 2016 19:30
--- NOTE | 2016-09-08 19:31 | Pulmonology Progress Note ---
Assessment/Plan Problems: (1) UTI (urinary tract infection) (2) Renal insufficiency (3) Chronic pain (4) Anemia Assessment[facility] check electrolytes all labs and notes reviewed. Subjective ROS Limited/Unobtainable: No Constitutional: Reports: no symptoms HEENT: Repors: no symptoms Respiratory: Reports: no symptoms Cardiovascular: Reports: no symptoms Allergies: Coded Allergies: HALOPERIDOL (Verified Allergy, Mild, [place] really bad, 07/05/16) Makes him irritable. THIORIDAZINE (Verified Allergy, Mild, [place] really bad, 07/05/16) Makes him violent TRAZODONE (Verified Allergy, Mild, [place] really bad, 07/05/16) Too strong; inability to move. Uncoded Allergies: PSYCHOTROPIC MEDICATION (Allergy, Mild, 08/13/14) Objective Last 24 Hour Vital Signs Date Time Temp Pulse Resp B/P Pulse Ox O2 Delivery O2 Flow Rate FiO2 09/08/16 18:40 112/65 09/08/16 16:00 97.9 85 19 88/55 100 Room Air 09/08/16 12:15 93.7 67 11 132/83 100 Room Air 09/08/16 08:15 97.2 87 14 113/60 100 09/08/16 08:09 113/87 09/08/16 04:00 97.2 65 20 141/65 100 Room Air 09/08/16 00:00 97.7 78 18 121/75 99 Room Air 09/07/16 20:00 97.0 75 20 124/79 99 Room Air Intake and Output 09/07/16 09/08/16 19:00 07:00 Intake Total 1320 ml Output Total 1150 ml 450 ml Balance 170 ml -450 ml Intake Oral 1320 ml Output Urine Total 1150 ml 450 ml # Voids 1 Objective General Appearance: WD/WN HEENT: normocephalic, atraumatic Respiratory/Chest: chest wall non-tender, lungs clear Cardiovascular: normal peripheral pulses, normal rate Abdomen: normal bowel sounds, soft, non tender Extremities: no cyanosis, no clubbing Microbiology Date/Time Source Procedure Growth Status 09/07/16 13:30 Urine,Clean Catch Urine Culture - Preliminary Gram Negative Bacillus 1 Resulted Laboratory Tests 09/08/16 05:40: White Blood Count 3.5L, Red Blood Count 3.49L, Hemoglobin 9.2L, Hematocrit 30.4L , Mean Corpuscular Volume 87, Mean Corpuscular Hemoglobin 26.3L, Mean Corpuscular Hemoglobin Concent 30.1L, Red Cell Distribution Width 16.4H, Platelet Count 443, Mean Platelet Volume 5.7L, Neutrophils (%) (Auto) 50.4, Lymphocytes (%) (Auto) 30.4, Monocytes (%) (Auto) 13.2H, Eosinophils (%) (Auto) 5.0H, Basophils (%) (Auto) 1.0, Sodium Level 140, Potassium Level 4.2, Chloride Level 109H, Carbon Dioxide Level 21, Anion Gap 10, Blood Urea Nitrogen 15, Creatinine 1.0, Estimat Glomerular Filtration Rate > 60, Glucose Level 87, Calcium Level 9.6 09/08/16 18:15: Troponin I < 0.30 Current Medications Medications (Trade) Dose Ordered Sig/Jesi Route PRN Reason Start Time Stop Time Status Last Admin Dose Admin Acetaminophen (Tylenol) 650 mg Q4H PRN ORAL fever 09/06/16 16:30 10/06/16 16:29 Acetaminophen/ Hydrocodone Bitart ([place] 10/325) 1 ea Q6H PRN ORAL For breakthrough pain 09/08/16 14:30 09/15/16 14:29 Al Hydroxide/Mg Hydroxide (Mylanta II) 30 ml Q6H PRN ORAL dyspepsia 09/06/16 16:30 10/06/16 16:29 Buspirone HCl (Buspar) 10 mg TWICE A DAY ORAL 09/06/16 18:30 10/06/16 18:29 09/08/16 17:29 Ceftriaxone Sodium/Dextrose (Rocephin/D5W) 55 ml @ 110 mls/hr Q24H IVPB 09/08/16 15:00 09/15/16 14:59 09/08/16 15:22 Dextrose (Dextrose 50%) STAT PRN IV Hypoglycemia 09/06/16 16:30 10/06/16 16:29 Gabapentin (Neurontin) 400 mg THREE TIMES A DAY ORAL 09/07/16 14:00 10/07/16 13:59 09/08/16 17:29 Heparin Sodium (Porcine) (Heparin 5000 units/ml) 5,000 units EVERY 12 HOURS SUBQ 09/06/16 21:00 10/06/16 20:59 09/08/16 08:10 Levetiracetam (Keppra) 1,500 mg Q12HR ORAL 09/07/16 14:00 10/07/16 13:59 09/08/16 08:09 Lisinopril (Prinivil) 20 mg DAILY ORAL 09/07/16 09:00 10/07/16 08:59 09/08/16 08:09 Lorazepam (Ativan 2mg/ml 1ml) 2 mg Q1H PRN IV seizures 09/06/16 16:30 09/13/16 16:29 Memantine 5 mg 5 mg BID ORAL 09/08/16 18:00 10/08/16 17:59 09/08/16 17:29 Morphine Sulfate (Morphine Sulfate) 1 mg Q4H PRN IVP For Pain 7-09/06/16 16:30 09/13/16 16:29 09/08/16 08:11 Ondansetron HCl (Zofran) 4 mg Q6H PRN IVP Nausea & Vomiting 09/06/16 16:30 10/06/16 16:29 Polyethylene Glycol (Miralax) 17 gm HSPRN PRN ORAL Constipation 09/06/16 16:30 10/06/16 16:29 Zolpidem Tartrate (Ambien) 5 mg HSPRN PRN ORAL Insomnia 09/06/16 16:30 10/06/16 16:29 LAQUITA VAZQUEZ Sep 08, 2016 19:31
[2016-09-09 00:10] VITALS: BP 122/68
[2016-09-09 04:16] VITALS: BP 130/70
[2016-09-09 07:44] LABS: ANION GAP 12 (5-15); CALCIUM 9.4 mg/dL (8.6-10.2); CARBON DIOXIDE 21 mEQ/L (20-30); CHLORIDE 107 mEQ/L (98-107); GLOMERULAR FILTRATION RATE > 60 mL/min (>60); HEMOLYSIS 0; POTASSIUM 4.2 mEQ/L (3.4-4.9); SODIUM 140 mEQ/L (135-145)
[2016-09-09 07:48] LABS: BASOPHILS % (AUTO) 1.5 % (0.0-2.0); LYMPHOCYTES % (AUTO) 27.5 % (20.0-45.0); MEAN CORPUSCULAR HEMOGLOBIN 26.6 PG (27.0-31.0); MEAN CORPUSCULAR HGB CONC 30.8 G/DL (32.0-36.0); MEAN CORPUSCULAR VOLUME 87 FL (80-99); MONOCYTES % (AUTO) 10.6 % (1.0-10.0); NEUTROPHILS % (AUTO) 56.4 % (45.0-75.0); PLATELET COUNT 479 K/UL (150-450); RED CELL DISTRIBUTION WIDTH 16.2 % (11.6-14.8); WHITE BLOOD COUNT 3.7 K/UL (4.8-10.8)
[2016-09-09 08:13] LABS: LACTATE DEHYDROGENASE 147 U/L (135-230)
[2016-09-09 08:28] LABS: HEMOLYSIS 2; IRON 12 ug/dL (59-158); TOTAL IRON BINDING CAPACITY 313 ug/dL (250-400)
[2016-09-09 08:33] VITALS: BP 99/56
[2016-09-09] MEDS: Memantine 5 MG TAB ORAL SCH ×2 (08:52→17:39)
[2016-09-09] MEDS: BusPIRone 10mg Tab ORAL SCH ×2 (08:52→17:39)
[2016-09-09] MEDS: Heparin 5000 units/ml inj SUBQ SCH ×2 (08:53→20:30)
--- NOTE | 2016-09-09 08:53 | General Progress Note ---
Assessment/Plan Assessment/Plan (1) Lumbar DDD (2) Lumbar Spondylosis (3) Lumbar Radiculopathy (4) Lumbar Herniated disc (5) Multiple Joint OA (6) B/L knee pain Pt will be continued on Morphine and Lula. Rx for [place] 10/325mg 20 tabs was written for the patient. Pt was d/w Dr. Link and he concurred. Subjective Date patient seen: Sep 09, 2016 Time patient seen: 07:00 - am Allergies: Coded Allergies: HALOPERIDOL (Verified Allergy, Mild, [place] really bad, 07/05/16) Makes him irritable. THIORIDAZINE (Verified Allergy, Mild, [place] really bad, 07/05/16) Makes him violent TRAZODONE (Verified Allergy, Mild, [place] really bad, 07/05/16) Too strong; inability to move. Uncoded Allergies: PSYCHOTROPIC MEDICATION (Allergy, Mild, 08/13/14) Subjective Constitutional: Reports: weakness, Denies: chills, diaphoresis, fever, malaise , no symptoms, other HEENT: Denies: blurred vision, double vision, ear discharge, ear pain, eye pain , mouth pain, mouth swelling, no symptoms, nose congestion, nose pain, other, tearing, throat pain, throat swelling Cardiovascular: Denies: chest pain, edema, irregular heart rate, lightheadedness, no symptoms, other, palpitations, syncope Respiratory: Denies: SOB at rest, SOB with excertion, cough, no symptoms, orthopnea, other, shortness of breath, sputum, stridor, wheezing Gastrointestinal/Abdominal: Denies: abdomen distended, abdominal pain, black stools, blood in stool, constipated, diarrhea, difficulty swallowing, nausea, no symptoms, other, poor appetite, poor fluid intake, rectal bleeding, tarry stools, vomiting Genitourinary: Denies: burning, discharge, flank pain, frequency, hematuria, incontinence, no symptoms, other, pain, urgency Neurologic/Psychiatric: Reports: weakness, Denies: anxiety, depressed, emotional problems, headache, no symptoms, numbness, other, paresthesia, pre- existing deficit, seizure, tingling, tremors Endocrine: Denies: excessive sweating, flushing, increased hunger, increased thirst, increased urine, intolerance to cold, intolerance to heat, no symptoms, other, unexplained weight gain, unexplained weight loss Hematologic/Lymphatic: Denies: anemia, easy bleeding, easy bruising, no symptoms, other Subjective Pt continues to c/o body pain which as been tolerated on the medications. Objective Last 24 Hour Vital Signs Date Time Temp Pulse Resp B/P Pulse Ox O2 Delivery O2 Flow Rate FiO2 09/09/16 08:33 97.2 60 19 99/56 100 Room Air 09/09/16 04:16 98.1 80 19 130/70 96 Room Air 09/09/16 00:10 98.2 75 18 122/68 97 Room Air 09/08/16 20:21 98.1 74 18 105/58 100 Room Air 09/08/16 18:40 112/65 09/08/16 16:00 97.9 85 19 88/55 100 Room Air 09/08/16 12:15 93.7 67 11 132/83 100 Room Air Intake and Output 09/08/16 09/09/16 19:00 07:00 Intake Total 535 ml 240 ml Output Total 400 ml Balance 135 ml 240 ml Intake Oral 480 ml 240 ml IV Total 55 ml Output Urine Total 400 ml # Voids 3 Laboratory Tests 09/08/16 18:15: Troponin I < 0.30 09/09/16 05:15: White Blood Count 3.7L, Red Blood Count 3.50L, Hemoglobin 9.3L, Hematocrit 30.2L , Mean Corpuscular Volume 87, Mean Corpuscular Hemoglobin 26.6L, Mean Corpuscular Hemoglobin Concent 30.8L, Red Cell Distribution Width 16.2H, Platelet Count 479H, Mean Platelet Volume 6.0L, Neutrophils (%) (Auto) 56.4, Lymphocytes (%) (Auto) 27.5, Monocytes (%) (Auto) 10.6H, Eosinophils (%) (Auto) 4.0H, Basophils (%) (Auto) 1.5, Erythrocyte Sedimentation Rate [Pending], Reticulocyte Count [Pending], Prothrombin Time 10.0, Prothromb Time International Ratio 1.0, Activated Partial Thromboplast Time 26, Sodium Level 140, Potassium Level 4.2, Chloride Level 107, Carbon Dioxide Level 21, Anion Gap 12, Blood Urea Nitrogen 16, Creatinine 1.0, Estimat Glomerular Filtration Rate > 60, Glucose Level 88, Calcium Level 9.4, Iron Level 12L, Total Iron Binding Capacity 313, Percent Iron Saturation 4L, Unsaturated Iron Binding 301, Lactate Dehydrogenase 147, Carcinoembryonic Antigen 2.5, Vitamin B12 Level 439, Folate [Pending] Height (Feet): 5 Height (Inches): 9.00 Weight (Pounds): 160 Objective General Appearance: no apparent distress, alert EENT: PERRL/EOMI, normal ENT inspection Neck: non-tender, normal alignment Cardiovascular: normal rate, regular rhythm Respiratory/Chest: decreased breath sounds Abdomen: non tender, soft Extremities: non-tender Edema: no edema noted Arm (L), no edema noted Arm (R), no edema noted Leg (L), no edema noted Leg (R), no edema noted Pedal (L), no edema noted Pedal (R), no edema noted Generalized Neurologic: alert, oriented x 3 Skin: warm/dry VICTOR M FLORES Sep 09, 2016 08:53
[2016-09-09] MEDS: Lisinopril 20mg tab ORAL SCH (08:56)
[2016-09-09 09:17] LABS: ERYTHROCYTE SEDIMENTATION RATE 51 MM/HR (0-20)
[2016-09-09 10:22] LABS: PATH BLOOD SMEAR/OMC SENT TO PATHOLOGIST; RETICULOCYTE COUNT 0.7 % (0.0-2.0)
[2016-09-09 12:00] VITALS: BP 112/70
--- NOTE | 2016-09-09 12:16 | Nephrology Progress Note ---
Assessment/Plan Assessment 1. Acute renal failure, prerenal azotemia.resolved 2. Breakthrough seizure, most likely due to noncompliant with medication. 3. Anemia. iron deficiency 4. hypertension.now is better Plan plan to continue current meds pain management bp now is under controlled Subjective Constitutional: Reports: no symptoms HEENT: Reports: no symptoms Genitourinary: Reports: no symptoms Neurologic/Psychiatric: Reports: no symptoms Subjective alert and awake no seizure c/o body pain Objective Objective Last 24 Hour Vital Signs Date Time Temp Pulse Resp B/P Pulse Ox O2 Delivery O2 Flow Rate FiO2 09/09/16 08:56 99/56 09/09/16 08:33 97.2 60 19 99/56 100 Room Air 09/09/16 04:16 98.1 80 19 130/70 96 Room Air 09/09/16 00:10 98.2 75 18 122/68 97 Room Air 09/08/16 20:21 98.1 74 18 105/58 100 Room Air 09/08/16 18:40 112/65 09/08/16 16:00 97.9 85 19 88/55 100 Room Air Intake and Output 09/08/16 09/09/16 19:00 07:00 Intake Total 535 ml 240 ml Output Total 400 ml Balance 135 ml 240 ml Intake Oral 480 ml 240 ml IV Total 55 ml Output Urine Total 400 ml # Voids 3 Laboratory Tests 09/08/16 18:15: Troponin I < 0.30 09/09/16 05:15: White Blood Count 3.7L, Red Blood Count 3.50L, Hemoglobin 9.3L, Hematocrit 30.2L , Mean Corpuscular Volume 87, Mean Corpuscular Hemoglobin 26.6L, Mean Corpuscular Hemoglobin Concent 30.8L, Red Cell Distribution Width 16.2H, Platelet Count 479H, Mean Platelet Volume 6.0L, Neutrophils (%) (Auto) 56.4, Lymphocytes (%) (Auto) 27.5, Monocytes (%) (Auto) 10.6H, Eosinophils (%) (Auto) 4.0H, Basophils (%) (Auto) 1.5, Erythrocyte Sedimentation Rate 51H, Reticulocyte Count 0.7, Prothrombin Time 10.0, Prothromb Time International Ratio 1.0, Activated Partial Thromboplast Time 26, Sodium Level 140, Potassium Level 4.2, Chloride Level 107, Carbon Dioxide Level 21, Anion Gap 12, Blood Urea Nitrogen 16, Creatinine 1.0, Estimat Glomerular Filtration Rate > 60, Glucose Level 88, Calcium Level 9.4, Iron Level 12L, Total Iron Binding Capacity 313, Percent Iron Saturation 4L, Unsaturated Iron Binding 301, Lactate Dehydrogenase 147, Carcinoembryonic Antigen 2.5, Vitamin B12 Level 439, Folate [ Pending] Height (Feet): 5 Height (Inches): 9.00 Weight (Pounds): 160 Objective HEAD AND NECK: No JVP. No LAD. No thyromegaly. Extraocular movement intact. Pupils are reactive to light and accommodation. LUNGS: Clear to auscultation. CARDIAC: Regular rate and rhythm. S1 and S2. No murmur. No rub. ABDOMEN: Soft, nontender, and nondistended. EXTREMITIES: No edema. No clubbing. No cyanosis. NATHANAEL ANN Sep 09, 2016 12:16
--- NOTE | 2016-09-09 13:20 | General Progress Note ---
Assessment/Plan Problem List: (1) UTI (urinary tract infection) ICD Codes: N39.0 - Urinary tract infection, site not specified SNOMED: 73193823 (2) Renal insufficiency ICD Codes: N28.9 - Disorder of kidney and ureter, unspecified SNOMED: 911553115, 217593646 (3) Chronic pain ICD Codes: G89.29 - Other chronic pain SNOMED: 00538619 (4) Anemia ICD Codes: D64.9 - Anemia, unspecified SNOMED: 970645960 Qualifiers: Qualified Codes: D64.9 - Anemia, unspecified (5) Seizure disorder ICD Codes: G40.909 - Epilepsy, unspecified, not intractable, without status epilepticus SNOMED: 321559617 (6) Chronic low back pain ICD Codes: G89.29 - Other chronic pain; M54.5 - Chronic low back pain SNOMED: 552634319 Qualifiers: Qualified Codes: M54.5 - Low back pain; G89.29 - Other chronic pain Status: stable, progressing, tolerating diet Assessment/Plan ot pt abx pain seizure control dc to snf Subjective Constitutional: Reports: weakness Allergies: Coded Allergies: HALOPERIDOL (Verified Allergy, Mild, [place] really bad, 07/05/16) Makes him irritable. THIORIDAZINE (Verified Allergy, Mild, [place] really bad, 07/05/16) Makes him violent TRAZODONE (Verified Allergy, Mild, [place] really bad, 07/05/16) Too strong; inability to move. Uncoded Allergies: PSYCHOTROPIC MEDICATION (Allergy, Mild, 08/13/14) All Systems: reviewed and negative except above Subjective al anxious c/o gen pain Objective Last 24 Hour Vital Signs Date Time Temp Pulse Resp B/P Pulse Ox O2 Delivery O2 Flow Rate FiO2 09/09/16 08:56 99/56 09/09/16 08:33 97.2 60 19 99/56 100 Room Air 09/09/16 04:16 98.1 80 19 130/70 96 Room Air 09/09/16 00:10 98.2 75 18 122/68 97 Room Air 09/08/16 20:21 98.1 74 18 105/58 100 Room Air 09/08/16 18:40 112/65 09/08/16 16:00 97.9 85 19 88/55 100 Room Air Intake and Output 09/08/16 09/09/16 19:00 07:00 Intake Total 535 ml 240 ml Output Total 400 ml Balance 135 ml 240 ml Intake Oral 480 ml 240 ml IV Total 55 ml Output Urine Total 400 ml # Voids 3 Laboratory Tests 09/08/16 18:15: Troponin I < 0.30 09/09/16 05:15: White Blood Count 3.7L, Red Blood Count 3.50L, Hemoglobin 9.3L, Hematocrit 30.2L , Mean Corpuscular Volume 87, Mean Corpuscular Hemoglobin 26.6L, Mean Corpuscular Hemoglobin Concent 30.8L, Red Cell Distribution Width 16.2H, Platelet Count 479H, Mean Platelet Volume 6.0L, Neutrophils (%) (Auto) 56.4, Lymphocytes (%) (Auto) 27.5, Monocytes (%) (Auto) 10.6H, Eosinophils (%) (Auto) 4.0H, Basophils (%) (Auto) 1.5, Erythrocyte Sedimentation Rate 51H, Reticulocyte Count 0.7, Prothrombin Time 10.0, Prothromb Time International Ratio 1.0, Activated Partial Thromboplast Time 26, Sodium Level 140, Potassium Level 4.2, Chloride Level 107, Carbon Dioxide Level 21, Anion Gap 12, Blood Urea Nitrogen 16, Creatinine 1.0, Estimat Glomerular Filtration Rate > 60, Glucose Level 88, Calcium Level 9.4, Iron Level 12L, Total Iron Binding Capacity 313, Percent Iron Saturation 4L, Unsaturated Iron Binding 301, Lactate Dehydrogenase 147, Carcinoembryonic Antigen 2.5, Vitamin B12 Level 439, Folate [ Pending] Height (Feet): 5 Height (Inches): 9.00 Weight (Pounds): 160 YU GARZA Sep 09, 2016 13:20
[2016-09-09] MEDS ORDERED: NAMENDA5 MG ORAL (13:40)
[2016-09-09] MEDS ORDERED: NORCO 10-325 T1 EACH ORAL (13:40)
[2016-09-09] MEDS ORDERED: NEURONTIN400 MG ORAL (13:41)
[2016-09-09] MEDS ORDERED: KEPPRA1000 MG ORAL (13:41)
[2016-09-09] MEDS ORDERED: LISINOPRIL20 MG ORAL (13:41)
[2016-09-09] MEDS ORDERED: HEPARIN SO5000 UNIT2 SUBQ (13:41)
[2016-09-09] MEDS ORDERED: BUSPAR10 MG ORAL (13:41)
[2016-09-09] MEDS ORDERED: AMBIEN5 MG ORAL (13:42)
[2016-09-09] MEDS ORDERED: MYLANTA30 M1 ORAL (13:42)
[2016-09-09] MEDS ORDERED: LORAZEPAM2 MG IV (13:43)
[2016-09-09] MEDS ORDERED: ZOFRAN 4 MG4 MG/2 ML IV (13:43)
[2016-09-09] MEDS ORDERED: MORPHINE 22 MG/1 ML IV (13:44)
[2016-09-09] MEDS ORDERED: MIRALAX17 G2 ORAL (13:44)
[2016-09-09] MEDS ORDERED: TYLENOL EXTRA500 MG ORAL (13:44)
[2016-09-09] MEDS ORDERED: LEVAQUIN250 M1 ORAL (14:09)
[2016-09-09] MEDS ORDERED: LORAZEPAM2 MG ORAL (14:34)
--- NOTE | 2016-09-09 14:49 | GI Initial Consult Note ---
History of Present Illness General Date patient seen: Sep 09, 2016 Time patient seen: 14:42 Reason for Hospitalization: General Complaint Referring physician: YU GARZA Reason for Consultation: GERD Present Illness HPI The patient is a 70 yo M with a history of metastatic prostate CA, seizure disorder and chronic back pain presenting for pain and recent seizure. The patient states he had 2 seizures last week and came to this ER for evaluation. When he was DC'ed home, he was unable to fill his prescription for Keppra due to insurance and financial issues. He denies a seizure since he was last seen. Pain described as a 10/10 dull ache to the mid lower back and radiates to the R leg. Worse with movement. He denies recent injury to this area. He denies any other symptoms including N, V, F, chills, abd pain, CP, SOB GI consult. HPI as noted above. Gi consulted for c/o of GERD. Pt seen on floor, awake A&Ox4 NAD with no active s/sx of N/V/D. Presents today c/o of acid reflux requesting for prevacid to be ordered. Patient recently underwent an upper endoscopy and colonoscopy 2 weeks ago, see summary below. Presents today with anemia and iron deficiency. Endoscopy Procedure Note Indication for Procedure: anemia Procedures Performed: EGD, colonoscopy Operative Findings/Diagnosis: gastritis, esophagitis CHRIS TAO Aug 22, 2016 12:54 Home Meds Reported Medications Lorazepam* (LORAZEPAM*) 2 Mg Tablet, 2 MG ORAL Q1HR Y for seizures, TAB 09/09/16 Levofloxacin* (LEVAQUIN*) 250 Mg Tablet, 250 MG ORAL DAILY for 5 Days, TAB 09/09/16 Acetaminophen* (TYLENOL EXTRA STRENGTH*) 500 Mg Tablet, 500 MG ORAL Q6H Y for Mild Pain/Temp > 100.5, TAB 0 Refills 09/09/16 Polyethylene Glycol 3350* (MIRALAX*) 17 Gm Powd.pack, 17 GM ORAL DAILY Y for Constipation, PACKET 09/09/16 Ondansetron* (ZOFRAN*) 4 Mg/2 Ml Vial, 4 MG IV Q6H Y for Nausea & Vomiting, VIAL 09/09/16 Zolpidem Tartrate* (AMBIEN*) 5 Mg Tablet, 5 MG ORAL BEDTIME Y for Insomnia, TAB 09/09/16 Al Hydroxide/mg Hydroxide (Mag-Al Liquid) 30 Ml Oral.susp, 30 ML ORAL Y for gi upset, ML 09/09/16 Buspirone Hcl* (BUSPAR*) 10 Mg Tablet, 10 MG ORAL BID, #15 TAB 0 Refills 09/09/16 Heparin Sod (Porcine) (HEPARIN SODIUM*) 5 000/1 Ml Vial, 5000 UNITS SUBQ EVERY 12 HOURS, VIAL 09/09/16 Lisinopril (LISINOPRIL*) 20 Mg Tablet, 20 MG ORAL DAILY, TAB 09/09/16 Levetiracetam (KEPPRA) 1,000 Mg Tablet, 1500 MG ORAL Q12HR, #30 TAB 0 Refills 09/09/16 Gabapentin* (NEURONTIN*) 400 Mg Capsule, 400 MG ORAL THREE TIMES A DAY, #15 CAP 0 Refills 09/09/16 Hydrocodone Bit/Acetaminophen 10-325* ([place] 10-325*) 1 Each Tablet, 1 TAB ORAL Q6H Y for For Pain, #10 TAB 0 Refills PRN PAIN 09/09/16 Memantine Hcl* (NAMENDA*) 5 Mg Tablet, 5 MG ORAL TWICE A DAY, TAB 09/09/16 Buspirone Hcl* (BUSPIRONE HCL*) 10 Mg Tablet, 10 MG ORAL TWICE A DAY, #60 TAB 0 Refills 08/19/16 Discontinued Reported Medications Morphine Sulfate* (MORPHINE SULFATE*) 2 Mg/1 Ml Cartridge, 1 MG IV Q4HR Y for Pain Scale (6-10), EA 09/09/16 Lorazepam* (LORAZEPAM*) 2 Mg Tablet, 2 MG IV Q1HR Y for post seizure, TAB 09/09/16 Diltiazem Hcl (DILTIAZEM HCL) 30 Mg Tablet, 30 MG PO THREE TIMES A DAY, TAB 09/06/16 Hydrocodone Bit/Acetaminophen 10-325* ([place] 10-325*) 1 Each Tablet, 1 TAB ORAL Q4H Y for For Pain, TAB 0 Refills PRN PAIN 08/22/16 Gabapentin* (NEURONTIN*) 100 Mg Capsule, 300 MG ORAL THREE TIMES A DAY, #15 CAP 0 Refills 08/22/16 Buspirone Hcl* (BUSPAR*) 10 Mg Tablet, 10 MG ORAL BID, #15 TAB 0 Refills 08/22/16 Lisinopril (LISINOPRIL*) 5 Mg Tablet, 10 MG ORAL DAILY, TAB 08/19/16 Pantoprazole (PANTOPRAZOLE) 20 Mg Tablet.dr, 40 MG ORAL DAILY, #10 TAB 0 Refills 08/19/16 Levetiracetam (LEVETIRACETAM) 500 Mg Tab.er.24h, 2000 MG ORAL Q12HR, #30 TAB 0 Refills 07/08/16 Zolpidem Tartrate* (AMBIEN*) 5 Mg Tablet, 5 MG ORAL BEDTIME Y for Insomnia, TAB 08/22/16 Lorazepam* (ATIVAN*) 1 Mg Tablet, 1 MG ORAL EVERY 6 HOURS Y for For Anxiety, TAB 08/22/16 Sennosides (SENNA) 8.6 Mg Tablet, 8.6 MG PO DAILY Y for Constipation, TAB 08/22/16 Polyethylene Glycol 3350* (MIRALAX*) 17 Gm Powd.pack, 17 GM ORAL QHS Y for Constipation, PACKET 08/22/16 Ondansetron* (ZOFRAN*) 4 Mg Tablet, 4 MG ORAL Q6H Y for Nausea & Vomiting, TAB 08/22/16 Docusate Sodium* (COLACE*) 100 Mg Capsule, 100 MG ORAL THREE TIMES A DAY Y for Constipation, CAP 08/22/16 Mag Hydrox/Al Hydrox/Simeth (MAALOX MAXIMUM STRENGTH SUSP) 355 Ml Oral.susp, 30 ML PO EVERY 6 HOURS Y for Abdominal cramps, ML 08/22/16 Acetaminophen* (ACETAMINOPHEN 325MG TABLET*) 325 Mg Tablet, 650 MG ORAL Q4H Y for Mild Pain/Temp > 100.5, TAB 08/22/16 Alprazolam* (XANAX*) 2 Mg Tablet, 2 MG ORAL EVERY 12 HOURS, #30 TAB 0 Refills 08/22/16 Ferrous Sulfate* (FERROUS SULFATE*) 325 Mg Tablet, 325 MG ORAL TWICE A DAY for 60 Days, #60 TAB 0 Refills 08/22/16 Sucralfate* (CARAFATE*) 1 Gm Tablet, 1 GM ORAL QHS, TAB 08/19/16 Tapentadol Hcl (NUCYNTA) 75 Mg Tablet, 75 MG PO Q8HR Y for For Pain, TAB 07/08/16 Med list reviewed/reconciled: Yes Allergies: Coded Allergies: HALOPERIDOL (Verified Allergy, Mild, [place] really bad, 07/05/16) Makes him irritable. THIORIDAZINE (Verified Allergy, Mild, [place] really bad, 07/05/16) Makes him violent TRAZODONE (Verified Allergy, Mild, [place] really bad, 07/05/16) Too strong; inability to move. Uncoded Allergies: PSYCHOTROPIC MEDICATION (Allergy, Mild, 08/13/14) Patient History History Provided By: Patient, Medical Record PMH Narrative Past Medical History: see triage record Pertinent Family History: none Reviewed Nursing Documentation: PMH: Agreed, PSxH: Agreed Nursing Documentation-PMH Hx Cardiac Problems: Yes Hx Hypertension: Yes Hx Asthma: Yes Hx Cancer: Yes Hx Gastrointestinal Problems: Yes Hx Neurological Problems: Yes Hx Seizures: Yes - Last seizure: 07/26/16 Review of Systems All Other Systems: negative except mentioned in HPI Physical Exam Vital Signs Date Time Temp Pulse Resp B/P Pulse Ox O2 Delivery O2 Flow Rate FiO2 09/06/16 00:00 98.0 70 20 150/69 97 Room Air Sp02 EP Interpretation: reviewed Labs Laboratory Tests Test 09/08/16 18:15 09/09/16 05:15 Troponin I < 0.30 ng/mL (<=0.30) White Blood Count 3.7 K/UL (4.8-10.8) L Red Blood Count 3.50 M/UL (4.70-6.10) L Hemoglobin 9.3 G/DL (14.2-18.0) L Hematocrit 30.2 % (42.0-52.0) L Mean Corpuscular Volume 87 FL (80-99) Mean Corpuscular Hemoglobin 26.6 PG (27.0-31.0) L Mean Corpuscular Hemoglobin Concent 30.8 G/DL (32.0-36.0) L Red Cell Distribution Width 16.2 % (11.6-14.8) H Platelet Count 479 K/UL (150-450) H Mean Platelet Volume 6.0 FL (6.5-10.1) L Neutrophils (%) (Auto) 56.4 % (45.0-75.0) Lymphocytes (%) (Auto) 27.5 % (20.0-45.0) Monocytes (%) (Auto) 10.6 % (1.0-10.0) H Eosinophils (%) (Auto) 4.0 % (0.0-3.0) H Basophils (%) (Auto) 1.5 % (0.0-2.0) Erythrocyte Sedimentation Rate 51 MM/HR (0-20) H Reticulocyte Count 0.7 % (0.0-2.0) Prothrombin Time 10.0 SEC (9.30-11.50) Prothromb Time International Ratio 1.0 (0.9-1.1) Activated Partial Thromboplast Time 26 SEC (23-33) Sodium Level 140 mEQ/L (135-145) Potassium Level 4.2 mEQ/L (3.4-4.9) Chloride Level 107 mEQ/L (98-107) Carbon Dioxide Level 21 mEQ/L (20-30) Anion Gap 12 (5-15) Blood Urea Nitrogen 16 mg/dL (7-23) Creatinine 1.0 mg/dL (0.7-1.2) Estimat Glomerular Filtration Rate > 60 mL/min (>60) Glucose Level 88 mg/dL (74-106) Calcium Level 9.4 mg/dL (8.6-10.2) Iron Level 12 ug/dL (59-158) L Total Iron Binding Capacity 313 ug/dL (250-400) Percent Iron Saturation 4 % (15-50) L Unsaturated Iron Binding 301 ug/dL (112-346) Lactate Dehydrogenase 147 U/L (135-230) Carcinoembryonic Antigen 2.5 ng/mL Vitamin B12 Level 439 pg/mL (211-946) Folate Pending General Appearance: well appearing, no apparent distress, alert Head: normocephalic EENT: normal ENT inspection Neck: supple Respiratory: normal breath sounds, no rhonchi Cardiovascular: normal rate Gastrointestinal: normal inspection, non tender, soft Genitourinary: no CVA tenderness Musculoskeletal: normal inspection, back normal Neurologic: normal inspection, alert, oriented x3, responsive Psychiatric: normal inspection, judgement/insight normal, memory normal Skin: normal inspection, normal color, no rash, warm/dry Lymphatic: normal inspection, no adenopathy Current Medications Current Medications Medications (Trade) Dose Ordered Sig/Jesi Route PRN Reason Start Time Stop Time Status Last Admin Dose Admin Acetaminophen (Tylenol) 650 mg Q4H PRN ORAL fever 09/06/16 16:30 10/06/16 16:29 Acetaminophen/ Hydrocodone Bitart ([place] 10/325) 1 ea Q6H PRN ORAL For breakthrough pain 09/08/16 14:30 09/15/16 14:29 Al Hydroxide/Mg Hydroxide (Mylanta II) 30 ml Q6H PRN ORAL dyspepsia 09/06/16 16:30 10/06/16 16:29 09/09/16 10:44 Buspirone HCl (Buspar) 10 mg TWICE A DAY ORAL 09/06/16 18:30 10/06/16 18:29 09/09/16 08:52 Ceftriaxone Sodium/Dextrose (Rocephin/D5W) 55 ml @ 110 mls/hr Q24H IVPB 09/08/16 15:00 09/15/16 14:59 09/08/16 15:22 Dextrose (Dextrose 50%) STAT PRN IV Hypoglycemia 09/06/16 16:30 10/06/16 16:29 Gabapentin (Neurontin) 400 mg THREE TIMES A DAY ORAL 09/07/16 14:00 10/07/16 13:59 09/09/16 13:38 Heparin Sodium (Porcine) (Heparin 5000 units/ml) 5,000 units EVERY 12 HOURS SUBQ 09/06/16 21:00 10/06/16 20:59 09/09/16 08:53 Lansoprazole (Prevacid) 30 mg DAILY ORAL 09/09/16 16:00 10/09/16 15:59 Levetiracetam (Keppra) 1,500 mg Q12HR ORAL 09/07/16 14:00 10/07/16 13:59 09/09/16 08:52 Lisinopril (Prinivil) 20 mg DAILY ORAL 09/07/16 09:00 10/07/16 08:59 09/08/16 08:09 Lorazepam (Ativan 2mg/ml 1ml) 2 mg Q1H PRN IV seizures 09/06/16 16:30 09/13/16 16:29 Memantine 5 mg 5 mg BID ORAL 09/08/16 18:00 10/08/16 17:59 09/09/16 08:52 Morphine Sulfate (Morphine Sulfate) 1 mg Q4H PRN IVP For Pain 7-09/06/16 16:30 09/13/16 16:29 09/08/16 08:11 Ondansetron HCl (Zofran) 4 mg Q6H PRN IVP Nausea & Vomiting 09/06/16 16:30 10/06/16 16:29 Polyethylene Glycol (Miralax) 17 gm HSPRN PRN ORAL Constipation 09/06/16 16:30 10/06/16 16:29 Zolpidem Tartrate (Ambien) 5 mg HSPRN PRN ORAL Insomnia 09/06/16 16:30 10/06/16 16:29 GI: Plan Problems: (1) Gastritis (2) Esophagitis (3) Anemia (4) Iron deficiency anemia Plan Endoscopy Procedure Note Indication for Procedure: anemia Procedures Performed: EGD, colonoscopy Operative Findings/Diagnosis: gastritis, esophagitis CHRIS TAO - Aug 22, 2016 12:54 symptomatic treatment at this time regular diet PPI, consider H2B qhs if patient continues to c/o of reflux iron deficiency >> venofer prn transfusions bowel regime fu labs Discussed with Dr. Tao. Thank you for referring this patient, we will follow. Vero Verdin N.P. Sep 09, 2016 14:49
[2016-09-09] MEDS: cefTRIAXone 1 GM in D5W 55 ML IVPB SCH (15:29)
[2016-09-09 16:00] VITALS: BP 152/77
--- NOTE | 2016-09-09 17:50 | Infectious Diseases Prog Note ---
Assessment/Plan Problems: (1) UTI (urinary tract infection) Assessment & Plan: will start ceftriaxon and send urine culture (2) Prostate cancer, primary, 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 site Assessment & Plan: recommend oncology consult for evaluation and management (3) Acute renal failure (ARF) Assessment & Plan: suspect dehydration, continue ivf, consult renal (4) Colonization with VRE (vancomycin-resistant enterococcus) Assessment & Plan: keep in contact isolation (5) Seizure disorder Assessment & Plan: on keppra, continue neuro check (6) Chronic low back pain Assessment & Plan: continue pain meds Subjective Allergies: Coded Allergies: HALOPERIDOL (Verified Allergy, Mild, [place] really bad, 07/05/16) Makes him irritable. THIORIDAZINE (Verified Allergy, Mild, [place] really bad, 07/05/16) Makes him violent TRAZODONE (Verified Allergy, Mild, [place] really bad, 07/05/16) Too strong; inability to move. Uncoded Allergies: PSYCHOTROPIC MEDICATION (Allergy, Mild, 08/13/14) Objective Vital Signs Last 24 Hour Vital Signs Date Time Temp Pulse Resp B/P Pulse Ox O2 Delivery O2 Flow Rate FiO2 09/09/16 16:00 97.9 73 20 152/77 99 Room Air 09/09/16 12:00 97.7 73 19 112/70 98 Room Air 09/09/16 08:56 99/56 09/09/16 08:33 97.2 60 19 99/56 100 Room Air 09/09/16 04:16 98.1 80 19 130/70 96 Room Air 09/09/16 00:10 98.2 75 18 122/68 97 Room Air 09/08/16 20:21 98.1 74 18 105/58 100 Room Air 09/08/16 18:40 112/65 Height (Feet): 5 Height (Inches): 9.00 Weight (Pounds): 160 Microbiology Date/Time Source Procedure Growth Status 09/06/16 17:54 Nasal Nares MRSA Culture - Final NO METHICILLIN RESISTANT STAPH AUREUS... Complete 09/07/16 13:30 Urine,Clean Catch Urine Culture - Final Proteus Mirabilis Complete 09/06/16 17:54 Rectum VRE Culture - Final NO VANCOMYCIN RESISTANT ENTEROCOCCUS ... Complete Laboratory Tests Test 09/08/16 18:15 09/09/16 05:15 Troponin I < 0.30 ng/mL (<=0.30) White Blood Count 3.7 K/UL (4.8-10.8) L Red Blood Count 3.50 M/UL (4.70-6.10) L Hemoglobin 9.3 G/DL (14.2-18.0) L Hematocrit 30.2 % (42.0-52.0) L Mean Corpuscular Volume 87 FL (80-99) Mean Corpuscular Hemoglobin 26.6 PG (27.0-31.0) L Mean Corpuscular Hemoglobin Concent 30.8 G/DL (32.0-36.0) L Red Cell Distribution Width 16.2 % (11.6-14.8) H Platelet Count 479 K/UL (150-450) H Mean Platelet Volume 6.0 FL (6.5-10.1) L Neutrophils (%) (Auto) 56.4 % (45.0-75.0) Lymphocytes (%) (Auto) 27.5 % (20.0-45.0) Monocytes (%) (Auto) 10.6 % (1.0-10.0) H Eosinophils (%) (Auto) 4.0 % (0.0-3.0) H Basophils (%) (Auto) 1.5 % (0.0-2.0) Erythrocyte Sedimentation Rate 51 MM/HR (0-20) H Reticulocyte Count 0.7 % (0.0-2.0) Prothrombin Time 10.0 SEC (9.30-11.50) Prothromb Time International Ratio 1.0 (0.9-1.1) Activated Partial Thromboplast Time 26 SEC (23-33) Sodium Level 140 mEQ/L (135-145) Potassium Level 4.2 mEQ/L (3.4-4.9) Chloride Level 107 mEQ/L (98-107) Carbon Dioxide Level 21 mEQ/L (20-30) Anion Gap 12 (5-15) Blood Urea Nitrogen 16 mg/dL (7-23) Creatinine 1.0 mg/dL (0.7-1.2) Estimat Glomerular Filtration Rate > 60 mL/min (>60) Glucose Level 88 mg/dL (74-106) Calcium Level 9.4 mg/dL (8.6-10.2) Iron Level 12 ug/dL (59-158) L Total Iron Binding Capacity 313 ug/dL (250-400) Percent Iron Saturation 4 % (15-50) L Unsaturated Iron Binding 301 ug/dL (112-346) Lactate Dehydrogenase 147 U/L (135-230) Carcinoembryonic Antigen 2.5 ng/mL Vitamin B12 Level 439 pg/mL (211-946) Folate Pending Current Medications Medications (Trade) Dose Ordered Sig/Jesi Route PRN Reason Start Time Stop Time Status Last Admin Dose Admin Acetaminophen (Tylenol) 650 mg Q4H PRN ORAL fever 09/06/16 16:30 10/06/16 16:29 Acetaminophen/ Hydrocodone Bitart ([place] 10/325) 1 ea Q6H PRN ORAL For breakthrough pain 09/08/16 14:30 09/15/16 14:29 Al Hydroxide/Mg Hydroxide (Mylanta II) 30 ml Q6H PRN ORAL dyspepsia 09/06/16 16:30 10/06/16 16:29 09/09/16 10:44 Buspirone HCl (Buspar) 10 mg TWICE A DAY ORAL 09/06/16 18:30 10/06/16 18:29 09/09/16 17:39 Ceftriaxone Sodium/Dextrose (Rocephin/D5W) 55 ml @ 110 mls/hr Q24H IVPB 09/08/16 15:00 09/15/16 14:59 09/09/16 15:29 Dextrose (Dextrose 50%) STAT PRN IV Hypoglycemia 09/06/16 16:30 10/06/16 16:29 Gabapentin (Neurontin) 400 mg THREE TIMES A DAY ORAL 09/07/16 14:00 10/07/16 13:59 09/09/16 17:39 Heparin Sodium (Porcine) (Heparin 5000 units/ml) 5,000 units EVERY 12 HOURS SUBQ 09/06/16 21:00 10/06/16 20:59 09/09/16 08:53 Iron Sucrose/ Sodium Chloride (Venofer/Sodium Chloride) 60 ml @ 240 mls/hr BEDTIME IVPB 09/09/16 21:00 09/11/16 21:14 Lansoprazole 30 mg 30 mg DAILY ORAL 09/09/16 16:00 10/09/16 15:59 09/09/16 15:29 Levetiracetam (Keppra) 1,500 mg Q12HR ORAL 09/07/16 14:00 10/07/16 13:59 09/09/16 08:52 Lisinopril (Prinivil) 20 mg DAILY ORAL 09/07/16 09:00 10/07/16 08:59 09/08/16 08:09 Lorazepam (Ativan 2mg/ml 1ml) 2 mg Q1H PRN IV seizures 09/06/16 16:30 09/13/16 16:29 Memantine 5 mg 5 mg BID ORAL 09/08/16 18:00 10/08/16 17:59 09/09/16 17:39 Morphine Sulfate (Morphine Sulfate) 1 mg Q4H PRN IVP For Pain -09/06/16 16:30 09/13/16 16:29 09/08/16 08:11 Ondansetron HCl (Zofran) 4 mg Q6H PRN IVP Nausea & Vomiting 09/06/16 16:30 10/06/16 16:29 Polyethylene Glycol (Miralax) 17 gm HSPRN PRN ORAL Constipation 09/06/16 16:30 10/06/16 16:29 Zolpidem Tartrate (Ambien) 5 mg HSPRN PRN ORAL Insomnia 09/06/16 16:30 10/06/16 16:29 Lizzy Rothman M.D. Sep 09, 2016 17:50
[2016-09-09 20:00] VITALS: BP 129/81
--- NOTE | 2016-09-09 20:07 | Pulmonology Progress Note ---
Assessment/Plan Problems: (1) UTI (urinary tract infection) (2) Sepsis (3) Iron deficiency anemia (4) Chronic pain (5) Seizure disorder Assessment/Plan lawson culture f/u urie pain management dvt prophylaxis all notes and meds reviewed dc planning soon Subjective ROS Limited/Unobtainable: No Constitutional: Reports: no symptoms HEENT: Repors: no symptoms Respiratory: Reports: no symptoms Cardiovascular: Reports: no symptoms Gastrointestinal/Abdominal: Reports: no symptoms Genitourinary: Reports: no symptoms Allergies: Coded Allergies: HALOPERIDOL (Verified Allergy, Mild, [place] really bad, 07/05/16) Makes him irritable. THIORIDAZINE (Verified Allergy, Mild, [place] really bad, 07/05/16) Makes him violent TRAZODONE (Verified Allergy, Mild, [place] really bad, 07/05/16) Too strong; inability to move. Uncoded Allergies: PSYCHOTROPIC MEDICATION (Allergy, Mild, 08/13/14) Objective Last 24 Hour Vital Signs Date Time Temp Pulse Resp B/P Pulse Ox O2 Delivery O2 Flow Rate FiO2 09/09/16 16:00 97.9 73 20 152/77 99 Room Air 09/09/16 12:00 97.7 73 19 112/70 98 Room Air 09/09/16 08:56 99/56 09/09/16 08:33 97.2 60 19 99/56 100 Room Air 09/09/16 04:16 98.1 80 19 130/70 96 Room Air 09/09/16 00:10 98.2 75 18 122/68 97 Room Air 09/08/16 20:21 98.1 74 18 105/58 100 Room Air Intake and Output 09/08/16 09/09/16 19:00 07:00 Intake Total 535 ml 240 ml Output Total 400 ml Balance 135 ml 240 ml Intake Oral 480 ml 240 ml IV Total 55 ml Output Urine Total 400 ml # Voids 3 Objective General Appearance: WD/WN HEENT: normocephalic Respiratory/Chest: chest wall non-tender, lungs clear Breasts: no masses Cardiovascular: normal peripheral pulses Abdomen: normal bowel sounds, soft, non tender Genitourinary: normal external genitalia Skin: no rash Microbiology Date/Time Source Procedure Growth Status 09/07/16 13:30 Urine,Clean Catch Urine Culture - Final Proteus Mirabilis Complete Laboratory Tests 09/09/16 05:15: White Blood Count 3.7L, Red Blood Count 3.50L, Hemoglobin 9.3L, Hematocrit 30.2L , Mean Corpuscular Volume 87, Mean Corpuscular Hemoglobin 26.6L, Mean Corpuscular Hemoglobin Concent 30.8L, Red Cell Distribution Width 16.2H, Platelet Count 479H, Mean Platelet Volume 6.0L, Neutrophils (%) (Auto) 56.4, Lymphocytes (%) (Auto) 27.5, Monocytes (%) (Auto) 10.6H, Eosinophils (%) (Auto) 4.0H, Basophils (%) (Auto) 1.5, Erythrocyte Sedimentation Rate 51H, Reticulocyte Count 0.7, Prothrombin Time 10.0, Prothromb Time International Ratio 1.0, Activated Partial Thromboplast Time 26, Sodium Level 140, Potassium Level 4.2, Chloride Level 107, Carbon Dioxide Level 21, Anion Gap 12, Blood Urea Nitrogen 16, Creatinine 1.0, Estimat Glomerular Filtration Rate > 60, Glucose Level 88, Calcium Level 9.4, Iron Level 12L, Total Iron Binding Capacity 313, Percent Iron Saturation 4L, Unsaturated Iron Binding 301, Lactate Dehydrogenase 147, Carcinoembryonic Antigen 2.5, Vitamin B12 Level 439, Folate [ Pending] Current Medications Medications (Trade) Dose Ordered Sig/Jesi Route PRN Reason Start Time Stop Time Status Last Admin Dose Admin Acetaminophen (Tylenol) 650 mg Q4H PRN ORAL fever 09/06/16 16:30 10/06/16 16:29 Acetaminophen/ Hydrocodone Bitart ([place] 10/325) 1 ea Q6H PRN ORAL For breakthrough pain 09/08/16 14:30 09/15/16 14:29 Al Hydroxide/Mg Hydroxide (Mylanta II) 30 ml Q6H PRN ORAL dyspepsia 09/06/16 16:30 10/06/16 16:29 09/09/16 10:44 Buspirone HCl (Buspar) 10 mg TWICE A DAY ORAL 09/06/16 18:30 10/06/16 18:29 09/09/16 17:39 Ceftriaxone Sodium/Dextrose (Rocephin/D5W) 55 ml @ 110 mls/hr Q24H IVPB 09/08/16 15:00 09/15/16 14:59 09/09/16 15:29 Dextrose (Dextrose 50%) STAT PRN IV Hypoglycemia 09/06/16 16:30 10/06/16 16:29 Gabapentin (Neurontin) 400 mg THREE TIMES A DAY ORAL 09/07/16 14:00 10/07/16 13:59 09/09/16 17:39 Heparin Sodium (Porcine) (Heparin 5000 units/ml) 5,000 units EVERY 12 HOURS SUBQ 09/06/16 21:00 10/06/16 20:59 09/09/16 08:53 Iron Sucrose/ Sodium Chloride (Venofer/Sodium Chloride) 60 ml @ 240 mls/hr BEDTIME IVPB 09/09/16 21:00 09/11/16 21:14 Lansoprazole 30 mg 30 mg DAILY ORAL 09/09/16 16:00 10/09/16 15:59 09/09/16 15:29 Levetiracetam (Keppra) 1,500 mg Q12HR ORAL 09/07/16 14:00 10/07/16 13:59 09/09/16 08:52 Lisinopril (Prinivil) 20 mg DAILY ORAL 09/07/16 09:00 10/07/16 08:59 09/08/16 08:09 Lorazepam (Ativan 2mg/ml 1ml) 2 mg Q1H PRN IV seizures 09/06/16 16:30 09/13/16 16:29 Memantine 5 mg 5 mg BID ORAL 09/08/16 18:00 10/08/16 17:59 09/09/16 17:39 Morphine Sulfate (Morphine Sulfate) 1 mg Q4H PRN IVP For Pain 7-09/06/16 16:30 09/13/16 16:29 09/08/16 08:11 Ondansetron HCl (Zofran) 4 mg Q6H PRN IVP Nausea & Vomiting 09/06/16 16:30 10/06/16 16:29 Polyethylene Glycol (Miralax) 17 gm HSPRN PRN ORAL Constipation 09/06/16 16:30 10/06/16 16:29 Zolpidem Tartrate (Ambien) 5 mg HSPRN PRN ORAL Insomnia 09/06/16 16:30 10/06/16 16:29 LAQUITA VAZQUEZ Sep 09, 2016 20:07
[2016-09-09] MEDS: Norco 10mg/325mg tab ORAL PRN (20:33)
[2016-09-09] MEDS ORDERED: Iron Sucrose 100 MG in NS 55 ML IVPB SCH (21:00)
[2016-09-10] VITALS: BP 127/77
[2016-09-10 04:00] VITALS: BP 130/69
[2016-09-10 07:56] LABS: ANION GAP 10 (5-15); CALCIUM 9.2 mg/dL (8.6-10.2); CARBON DIOXIDE 23 mEQ/L (20-30); CHLORIDE 106 mEQ/L (98-107); CREATININE 1.1 mg/dL (0.7-1.2); GLOMERULAR FILTRATION RATE > 60 mL/min (>60); HEMOLYSIS 2; POTASSIUM 4.1 mEQ/L (3.4-4.9); SODIUM 139 mEQ/L (135-145)
[2016-09-10 08:01] LABS: BASOPHILS % (AUTO) 1.3 % (0.0-2.0); EOSINOPHILS % (AUTO) 2.8 % (0.0-3.0); LYMPHOCYTES % (AUTO) 26.8 % (20.0-45.0); MEAN CORPUSCULAR HEMOGLOBIN 26.9 PG (27.0-31.0); MEAN CORPUSCULAR HGB CONC 31.6 G/DL (32.0-36.0); MEAN CORPUSCULAR VOLUME 85 FL (80-99); MEAN PLATELET VOLUME 5.5 FL (6.5-10.1); MONOCYTES % (AUTO) 11.7 % (1.0-10.0); NEUTROPHILS % (AUTO) 57.4 % (45.0-75.0); PLATELET COUNT 461 K/UL (150-450); RED BLOOD COUNT 3.45 M/UL (4.70-6.10); RED CELL DISTRIBUTION WIDTH 16.3 % (11.6-14.8); WHITE BLOOD COUNT 3.9 K/UL (4.8-10.8)
[2016-09-10] MEDS: Memantine 5 MG TAB ORAL SCH (08:49)
[2016-09-10] MEDS: Lisinopril 20mg tab ORAL SCH (08:50)
[2016-09-10] MEDS: BusPIRone 10mg Tab ORAL SCH (08:50)
[2016-09-10] MEDS: Norco 10mg/325mg tab ORAL PRN (08:51)
[2016-09-10 08:54] VITALS: BP 104/63
[2016-09-10] MEDS: Heparin 5000 units/ml inj SUBQ SCH (08:55)
[2016-09-10] MEDS ORDERED: NS 275ml ONE (09:44)
[2016-09-10] MEDS ORDERED: Tubing IV Secondary IV ONE (09:44)
--- NOTE | 2016-09-12 03:30 | Progress Note ---
DATE: 09/09/2016 SUBJECTIVE: He has seizure disorder. He is a 70-year-old male. He also has altered mental status. PLAN: Treat him with Neurontin 400 mg three times a day to reduce anxiety and neuropathy, also BuSpar 10 mg twice a day to reduce anxiety, and Namenda 5 mg twice a day to prevent any further decline in his cognition. Seen and assessed at bedside. Chart reviewed and discussed with staff. Jj Gill M.D. DR: MARCEL JOB#: [id number] CC:
--- NOTE | 2016-09-13 07:42 | Discharge Summary ---
Discharge Summary Hospital Course Date of Admission Sep 06, 2016 at 15:52 Date of Discharge Sep 10, 2016 at 11:21 Admitting Diagnosis seizure disorders, chronic pain HPI Min Porras is a 70 year old male who was admitted on Sep 06, 2016 at 15:52 for Seizure Disorders,Chronic Pain Hospital Course dc summary #[id number] Discharge Medications Continued Medications: Acetaminophen* (Tylenol Extra Strength*) 500 Mg Tablet 500 MG ORAL Q6H PRN for Mild Pain/Temp > 100.5, TAB 0 Refills Al Hydroxide/mg Hydroxide (Mag-Al Liquid) 30 Ml Oral.susp 30 ML ORAL PRN for gi upset, ML Buspirone Hcl* (Buspirone Hcl*) 10 Mg Tablet 10 MG ORAL TWICE A DAY, #60 TAB 0 Refills Buspirone Hcl* (Buspar*) 10 Mg Tablet 10 MG ORAL BID, #15 TAB 0 Refills Gabapentin* (Neurontin*) 400 Mg Capsule 400 MG ORAL THREE TIMES A DAY, #15 CAP 0 Refills Heparin Sod (Porcine) (Heparin Sodium*) 5 000/1 Ml Vial 5000 UNITS SUBQ EVERY 12 HOURS, VIAL Hydrocodone Bit/Acetaminophen 10-325* ([place] 10-325*) 1 Each Tablet 1 TAB ORAL Q6H PRN for For Pain, #10 TAB 0 Refills PRN PAIN Levetiracetam (Keppra) 1,000 Mg Tablet 1500 MG ORAL Q12HR, #30 TAB 0 Refills Levofloxacin* (Levaquin*) 250 Mg Tablet 250 MG ORAL DAILY for 5 Days, TAB Lisinopril (Lisinopril*) 20 Mg Tablet 20 MG ORAL DAILY, TAB Lorazepam* (Lorazepam*) 2 Mg Tablet 2 MG ORAL Q1HR PRN for seizures, TAB Memantine Hcl* (Namenda*) 5 Mg Tablet 5 MG ORAL TWICE A DAY, TAB Ondansetron* (Zofran*) 4 Mg/2 Ml Vial 4 MG IV Q6H PRN for Nausea & Vomiting, VIAL Polyethylene Glycol 3350* (Miralax*) 17 Gm Powd.pack 17 GM ORAL DAILY PRN for Constipation, PACKET Zolpidem Tartrate* (Ambien*) 5 Mg Tablet 5 MG ORAL BEDTIME PRN for Insomnia, TAB Discontinued Medications: Buspirone Hcl* (Buspar*) 10 Mg Tablet 10 MG ORAL BID, #15 TAB 0 Refills Diltiazem Hcl (Diltiazem Hcl) 30 Mg Tablet 30 MG PO THREE TIMES A DAY, TAB Gabapentin* (Neurontin*) 100 Mg Capsule 300 MG ORAL THREE TIMES A DAY, #15 CAP 0 Refills Hydrocodone Bit/Acetaminophen 10-325* ([place] 10-325*) 1 Each Tablet 1 TAB ORAL Q4H PRN for For Pain, TAB 0 Refills PRN PAIN Levetiracetam (Levetiracetam) 500 Mg Tab.er.24h 2000 MG ORAL Q12HR, #30 TAB 0 Refills Lisinopril (Lisinopril*) 5 Mg Tablet 10 MG ORAL DAILY, TAB Lorazepam* (Lorazepam*) 2 Mg Tablet 2 MG IV Q1HR PRN for post seizure, TAB Morphine Sulfate* (Morphine Sulfate*) 2 Mg/1 Ml Cartridge 1 MG IV Q4HR PRN for Pain Scale (6-10), EA Pantoprazole (Pantoprazole) 20 Mg Tablet.dr 40 MG ORAL DAILY, #10 TAB 0 Refills Discharge Condition Upon Discharge: stable Discharge Disposition Patient was discharged to [facility] (04) Discharge Diagnoses: Discharge Instructions Discharge Instructions Special Instructions I have been assigned to complete a D/C Summary on this account. I was not involved in the patient management Sharla Mandujano NP ([facility]) Sep 13, 2016 07:42
--- NOTE | 2016-09-13 12:31 | Discharge Summary 2 SIG ---
DATE OF ADMISSION: 09/06/2016 DATE OF DISCHARGE: 09/10/2016 CONSULTANTS: 1. Maria E Shine M.D., Pulmonary Care and Critical Care. 2. Isaiah Link M.D., pain specialist. 3. Selvin Alonso M.D., neurologist. 4. Ginna Ware M.D., corporate specialist. 5. Jj Gill M.D., psychiatrist. 6. Mu Rubin M.D., GI. REASON FOR ADMISSION: 70-year-old male with metastatic prostate cancer, seizure disorder, chronic back pain, hypertension, and asthma, presented to emergency room complaining of recent seizures last week. He was unable to fill the prescription for Keppra due to insurance and financial issues and was not on any antiseizure medication. The patient also reported back pain with radiation to right leg. Described as a 10/10, dull, aching, worse with movement. He denied any recent injury or trauma. There was no chest pain. No shortness of breath. No nausea. No vomiting. No fever. No chills. Workup in the emergency room revealed no fever, no leukocytosis. BUN -26 and creatinine -1.2. Urine tox screen was negative. Hemoglobin - 8.8 and hematocrit-29.6. ADMITTING DIAGNOSIS: 1.Chronic seizure disease exacerbation 2.Acute renal failure 3.Anemia 4.Chronic back pain syndrome. BRIEF HOSPITAL STAY: Patient was admitted. Neurologist had seen and evaluated the patient. According to neurologist, the patient had chronic seizure disease exacerbation secondary to noncompliance. Keppra restarted, dose of Neurontin increased as per neurologist recommendations. No further seizure activity while in the hospital. GI specialist had seen and evaluated the patient and recommended symptomatic treatment at that time. The patient had a recent EGD and colonoscopy, which revealed gastritis and esophagitis. GI recommended to advance diet as tolerated, symptomatic treatment, and started patient on PPI , recommended to consider H2 michele at nighttime if the patient continued to complain of the reflux. Anemia workup revealed iron-deficiency anemia. Venofer given. Hemoglobin and hematocrit were closely monitored, at baseline, no need for transfusion, goal to keep hemoglobin above 7. Bowel regimen was instituted. CEA within normal limits 2.5. Pain specialist had seen and evaluated the patient. The patient had a known history of lumbar degenerative disk disease and lumbar radiculopathy. Pain management provided as per pain specialist recommendation. Pain management was addressed and managed. Pain was controlled. Preforms Laminator had seen and evaluated the patient secondary to acute renal failure, present on admission with creatinine -1.2. According to corporate specialist, the patient had prerenal azotemia. Acute renal failure resolved with IV hydration. Blood pressure initially was not well controlled. Antihypertensive medications regimen was optimized, with the goal for to keep blood pressure below 130/75. Renal parameters and electrolytes were closely monitored and replaced as needed. Preforms Laminator recommended to avoid nephrotoxics, particularly nonsteroid anti-inflammatory drugs. ID followed the patient. The patient was found to have UTI. Urine culture grew Proteus. The patient was on antibiotics. Psychiatrist had seen and evaluated the patient and diagnosed the patient with paranoid schizophrenia with acute exacerbation. Psychiatrist optimized psychiatric medication regimen. The patient mood was well controlled. Social service was found the placement at a alf facility. The patient was stable for discharge. The patient was discharged to [facility]. DISCHARGE DIAGNOSES: 1. Chronic seizure disorder exacerbation secondary to noncompliance. 2. Acute renal failure, resolved. 3. Iron-deficiency anemia. 4. Metastatic prostate cancer. 5. Urinary tract infection with Proteus mirabilis. 6. Chronic back pain syndrome, opiate dependent. 7. Lumbar degenerative disk disease. 8. Lumbar radiculopathy. 9. Paranoid schizophrenia with acute exacerbation. 10. Gastritis. 11. Esophagitis. DISCHARGE MEDICATIONS: See medication reconciliation list. DISCHARGE INSTRUCTIONS: The patient was discharged to alf facility. FOLLOWUP: Follow up with medical doctor at the facility. Bobby Isbell D.O. I have been assigned to dictate discharge summary on this account and I was not involved in the patient's management. Sharla Mandujano (Vanchtein) N.PKar DR: SAEID JOB#: [id number] CC: GEOFF
== END 2016-09-10 11:21 | DRG 101 ==
LOC: EMR 15:51 → 4W 15:52 → EDBEDREQ 16:50
DX: G40.909 Epilepsy, unspecified, not intractable, without status epilepticus (principal); N17.9 Acute kidney failure, unspecified; C79.51 Secondary malignant neoplasm of bone; N39.0 Urinary tract infection, site not specified; F11.20 Opioid dependence, uncomplicated; C61 Malignant neoplasm of prostate; B96.4 Proteus (mirabilis) (morganii) as the cause of diseases classified elsewhere; F20.0 Paranoid schizophrenia; I10 Essential (primary) hypertension; Z88.8 Allergy status to other drugs, medicaments and biological substances; Z91.14 Patient's other noncompliance with medication regimen; D50.9 Iron deficiency anemia, unspecified; G89.4 Chronic pain syndrome; M51.16 Intervertebral disc disorders with radiculopathy, lumbar region; K29.70 Gastritis, unspecified, without bleeding; K20.9 Esophagitis, unspecified; F41.9 Anxiety disorder, unspecified; Z59.0 Homelessness; I25.10 Atherosclerotic heart disease of native coronary artery without angina pectoris; M15.9 Polyosteoarthritis, unspecified; M47.896 Other spondylosis, lumbar region; R41.82 Altered mental status, unspecified; J45.909 Unspecified asthma, uncomplicated; K21.9 Gastro-esophageal reflux disease without esophagitis
CPT/HCPCS: 36415; 80048; 80053; 80299; 80300; 80329; 81001; 82043; 82044; 82378; 82570; 82607; 82746; 83540; 83550; 83615; 84484; 85025; 85044; 85060; 85610; 85651; 85730; 87081; 87086; 87181; 89050; 97803; J2405

== ENCOUNTER 2018-07-12 22:27 | Inpatient (IN) | payer MEDICARE, OTHER ==
[~2018-07-12] VITALS: Ht 182.9 cm; Wt 77.6 kg
[~2018-07-12 22:27] MED LIST changes: +DILTIAZEM HCL30 MG PO; +LEVAQUIN250 M1 ORAL; +LISINOPRIL20 MG ORAL; +LORAZEPAM2 MG IV; +LORAZEPAM2 MG ORAL; +MORPHINE 22 MG/1 ML IV; +MYLANTA30 M1 ORAL; +NAMENDA5 MG ORAL; +NEURONTIN400 MG ORAL; +TYLENOL EXTRA500 MG ORAL; +ZOFRAN 4 MG4 MG/2 ML IV
[2018-07-13] VITALS (31 sets, daily range): BP systolic 94–155; BP diastolic 59–90
--- NOTE | 2018-07-13 00:30 | NUR ---
NURSE NOTES: Patient received as direct admit transfer from [facility] ER. Patient is oral intubated 7.0/23cm at lower lip, AC 20, 600, 50% FiO2, peep 5. Patient has NGT connected to low intermittent suction. Blood glucose is 106 on admission. HR is 85 SR, BP is 130/90, 98.8F. Patient is restless and agitated at this time, bilateral soft wrist restraints applied. Patient has Sims and NGT already present from transferring hospital. L UA 22G and R EJ 18G both SL. NAD at this time.
--- NOTE | 2018-07-13 00:40 | NUR ---
RESPIRATORY NOTE: Called for this pt that's direct admit from [facility]. Pt arrived intubated w/ ETT 7.0 @ 23cm lipline, secured by anchorfast, connected to transport vent. Pt placed on ventilator w/ same settings: AC 20, 600VT, 50%, PEEP +5. MD Alfonzo ordered ABG to be drawn in AM. Pt currently on sedation, still responding to stimuli. B/S juan. rhonchi, sxn minimal amounts of thick, white secretions. Bite block in place as pt tends to bite down ETT. Both hands on soft restraints to prevent pt from self-extubation. Vent plugged into red outlet, ambubag at bedside. Pt in no apparent distress at this time. Will continue to monitor.
--- NOTE | 2018-07-13 00:45 | NUR ---
NURSE NOTES: Elizabeth Douglas @ Addendum: 07/13/18 at 0118 by OSCAR ROJAS RN was told that this is the wrong number
--- NOTE | 2018-07-13 01:00 | NUR ---
NURSE NOTES: Called Dr. Mejía for admission orders. Ordered for morning labs. Morning CXR, and ABG in the morning. ordered for Ativan gtt for sedation and seizures. intermittent suctioning ordered. NS with 20 mEq KCl at 75ml/hr. Seizure precautions.
--- NOTE | 2018-07-13 01:25 | Consultation ---
History of Present Illness General Date patient seen: July 13, 2018 Chief Complaint: AMS Referring physician: Dr. Will Mejía Present Illness HPI Min Porras Jr is a 72-year-old male with history of traumatic brain injury, seizure disorder, COPD, DMT2, CVA, GERD, renal failure and HTN is being admitted to [facility] ICU for chief complaint of intractable seizures. He is a resident of [facility] where he began to have uncontrolled seizure activity on July 12, 2018. He was first admitted to [facility] and has now been transferred to [facility] due to insurance coverage issues. PAST MEDICAL HISTORY: 1. Traumatic brain injury as above. 2. Seizure disorder. 3. Chronic obstructive pulmonary disease. 4. Metabolic encephalopathy. 5. Diabetes type 2. 6. Renal failure. 7. Hypertension. 8. Gastroesophageal reflux disease. 9. Coronary artery disease. 10. Anemia. 11. History of gastrointestinal hemorrhage. 12. Hypercholesterolemia. 13. Dysphagia, status post PEG placement. 14. Cerebrovascular disease, status post cerebrovascular accident. PAST SURGICAL HISTORY: Significant for PEG placement. CURRENT MEDICATIONS: From [facility]: 1. Cymbalta 30 mg p.o. daily. 2. Depakote 500 mg per G-tube daily. 3. Dilantin extended release 180 mg 1 per G-tube daily. 4. Keppra 750 mg per G-tube 2 tablets per G-tube twice daily. 5. Lipitor 20 mg per G-tube at bedtime. 6. Metoprolol 25 mg per G-tube twice daily. 7. [place] 10/325 mg one tablet p.o. q.6 h. p.r.n. 8. Tylenol 650 mg per G-tube q.4 h. p.r.n. 9. Vimpat 150 mg per G-tube twice daily. 10. Zantac 150 mg per G-tube at bedtime. Allergies: Coded Allergies: HALOPERIDOL (Verified Allergy, Mild, [place] really bad, 07/05/16) Makes him irritable. THIORIDAZINE (Verified Allergy, Mild, [place] really bad, 07/05/16) Makes him violent TRAZODONE (Verified Allergy, Mild, [place] really bad, 07/05/16) Too strong; inability to move. Uncoded Allergies: PSYCHOTROPIC MEDICATION (Allergy, Mild, 7/1/15) Medication History Scheduled Buspirone Hcl* (Buspirone Hcl*), 10 MG ORAL TWICE A DAY, (Reported) Buspirone Hcl* (Buspar*), 10 MG ORAL BID, (Reported) Gabapentin* (Neurontin*), 400 MG ORAL THREE TIMES A DAY, (Reported) Heparin Sod (Porcine) (Heparin Sodium*), 5,000 UNITS SUBQ EVERY 12 HOURS, ( Reported) Levetiracetam (Keppra), 1,500 MG ORAL Q12HR, (Reported) Levofloxacin* (Levaquin*), 250 MG ORAL DAILY, (Reported) Lisinopril (Lisinopril*), 20 MG ORAL DAILY, (Reported) Memantine Hcl* (Namenda*), 5 MG ORAL TWICE A DAY, (Reported) Scheduled PRN Acetaminophen* (Tylenol Extra Strength*), 500 MG ORAL Q6H PRN for Mild Pain/ Temp > 100.5, (Reported) Al Hydroxide/mg Hydroxide (Mag-Al Liquid), 30 ML ORAL for gi upset, (Reported) Hydrocodone Bit/Acetaminophen 10-325* ([place] 10-325*), 1 TAB ORAL Q6H PRN for For Pain, (Reported) Lorazepam* (Lorazepam*), 2 MG ORAL Q1HR PRN for seizures, (Reported) Ondansetron* (Zofran*), 4 MG IV Q6H PRN for Nausea & Vomiting, (Reported) Polyethylene Glycol 3350* (Miralax*), 17 GM ORAL DAILY PRN for Constipation, ( Reported) Zolpidem Tartrate* (Ambien*), 5 MG ORAL BEDTIME PRN for Insomnia, (Reported) Patient History Healthcare decision maker Resuscitation status Full Code Advanced Directive on File Review of Systems All Other Systems: negative except mentioned in HPI ROS Narrative Unable to obtain due to patient's LOC Physical Exam General Appearance: WD/WN, no apparent distress, other Lines, tubes and drains: peripheral, endotracheal tube HEENT: normocephalic, atraumatic, anicteric, mucous membranes moist, PERRL, EOMI, pharynx normal, supple, no JVD Neck: non-tender, normal alignment, supple, normal inspection Respiratory/Chest: no respiratory distress, no accessory muscle use Cardiovascular/Chest: normal rate, no JVD Extremities: non-pitting, no edema, no cyanosis Skin Exam: normal pigmentation, warm/dry, no diaphoresis Neurologic: disoriented, unresponsiveness, other Musculoskeletal: normal muscle bulk, no effusion Physical Exam Narrative Patient is intubated and does not open eyes to voice - he KAT x4 spontaneously - does not follow commands - W/D to noxious stimuli x 4- Pupils are briskly reactive and PERRL - His exam is non focal Last 24 Hour Vital Signs Date Time Temp Pulse Resp B/P (MAP) Pulse Ox O2 Delivery O2 Flow Rate FiO2 07/13/18 00:35 90 20 100 Mechanical Ventilator 50 07/13/18 00:33 90 20 50 Height (Feet): 6 Weight (Pounds): 177 Medications Current Medications Medications (Trade) Dose Ordered Sig/Jesi Route PRN Reason Start Time Stop Time Status Last Admin Dose Admin Dextrose (Dextrose 50%) 25 ml Q30M PRN IV Hypoglycemia 07/13/18 01:15 08/12/18 01:14 Dextrose (Dextrose 50%) 50 ml Q30M PRN IV Hypoglycemia 07/13/18 01:15 08/12/18 01:14 Famotidine (Pepcid I.v.) 20 mg Q12HR IVP 07/13/18 09:00 08/12/18 08:59 Insulin Aspart (NovoLOG) EVERY 6 HOURS SUBQ 07/13/18 06:00 08/12/18 05:59 Lorazepam 20 mg/ Sodium Chloride 100 ml @ 0 mls/hr Q24H IV 07/13/18 00:45 07/20/18 00:44 Potassium Chloride/Sodium Chloride 1,000 ml @ 75 mls/hr [id number] IV 07/13/18 02:00 08/12/18 01:59 Assessment/Plan Problem List: (1) Acute metabolic encephalopathy ICD Codes: G93.41 - Metabolic encephalopathy SNOMED: 97710186, 191345540 (2) Drug abuse ICD Codes: F19.10 - Drug abuse SNOMED: 37963503 (3) COPD (chronic obstructive pulmonary disease) ICD Codes: J44.9 - Chronic obstructive pulmonary disease, unspecified SNOMED: 20267953 (4) Anemia ICD Codes: D64.9 - Anemia, unspecified SNOMED: 646723848 (5) Diabetes mellitus ICD Codes: E11.9 - Type 2 diabetes mellitus without complications SNOMED: 98051367 (6) Acute respiratory failure ICD Codes: J96.00 - Acute respiratory failure, unspecified whether with hypoxia or hypercapnia SNOMED: 55304466 (7) Seizure disorder ICD Codes: G40.909 - Epilepsy, unspecified, not intractable, without status epilepticus SNOMED: 036351837 (8) UTI (urinary tract infection) ICD Codes: N39.0 - Urinary tract infection, site not specified SNOMED: 72828450 (9) Prostate cancer, primary, 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 site ICD Codes: C61 - Prostate cancer, primary, 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 site SNOMED: 957497457 (10) Iron deficiency anemia ICD Codes: D50.9 - Iron deficiency anemia SNOMED: 63000201 (11) Acute renal failure (ARF) ICD Codes: N17.9 - Acute renal failure (ARF) SNOMED: 69729791 Status: stable Assessment/Plan: Q2 Neuro Obs - report any seizure activity 1-2 mg Ativan IV PRN for seizure activity Check drug serum levels Keppra Consider addition of second AED if 1500mg BID Keppra dose and other neuroleptics on aren't suppressing seizure activity. EEG inpatient when able Na 135-145 Maintain Normothermia Maintain normoglycemia with ISS PEG tube feeding to start immediately Kenia Pompa N.P. July 13, 2018 01:25
--- NOTE | 2018-07-13 01:30 | NUR ---
NURSE NOTES: MRSA, VRE and CRE swabs done
[2018-07-13] MEDS ORDERED: LORazepam Inj 2mg/ml 1ml ONE ×5 (01:35→04:51)
[2018-07-13] MEDS: LORazepam 20 MG in NS 90 ML IV SCH ×5 (01:51→18:09)
[2018-07-13] MEDS: NS w/KCl 20mEq 1000ml 1,000 ML IV SCH ×2 (01:52→17:00)
--- NOTE | 2018-07-13 02:00 | NUR ---
NURSE NOTES: Ativan gtt was started earlier, patient continues to be agitated, restless and uncooperative. Need to increase Ativan gtt rate.
--- NOTE | 2018-07-13 04:00 | NUR ---
NURSE NOTES: Patient still restless and agitated. Ativan running at 10mg/hr. HR and BP remains stable even at this rate. No fever. Will continue to monitor.
--- NOTE | 2018-07-13 04:14 | NUR ---
NURSE NOTES: Called and left message for Aletha RAYMOND in regards to dosage for Keppra. Dosage needs to be clarified by
--- NOTE | 2018-07-13 04:16 | NUR ---
NURSE NOTES: Kenia Pompa called back with dosage to be 1500 mg of Keppra to me given
[2018-07-13] MEDS ORDERED: levETIRAcetam 1,000mg/NS100ml 100 ML IVPB SCH (05:00)
[2018-07-13] MEDS ORDERED: levETIRAcetam 500mg/NS100ml 100 ML IVPB SCH (05:00)
--- NOTE | 2018-07-13 05:30 | NUR ---
NURSE NOTES: Otilio FURNACE ERECTOR at bedside assessing patient/.
[2018-07-13 05:45] LABS: BASOPHILS % (AUTO) 0.4 % (0.0-2.0); HEMATOCRIT 36.5 % (42.0-52.0); HEMOGLOBIN 12.2 G/DL (14.2-18.0); LYMPHOCYTES % (AUTO) 9.6 % (20.0-45.0); MEAN CORPUSCULAR VOLUME 90 FL (80-99); NEUTROPHILS % (AUTO) 80.1 % (45.0-75.0); PLATELET COUNT 165 K/UL (150-450); RED BLOOD COUNT 4.08 M/UL (4.70-6.10); RED CELL DISTRIBUTION WIDTH 13.2 % (11.6-14.8)
[2018-07-13] MEDS: NovoLOG Insulin Flexpen SUBQ SCH ×5 (06:00→23:27)
[2018-07-13 06:09] LABS: ANION GAP 10 mmol/L (5-15); BLOOD UREA NITROGEN 19 mg/dL (7-18); CALCIUM 8.7 MG/DL (8.5-10.1); CARBON DIOXIDE 25 MMOL/L (21-32); CHLORIDE 106 MMOL/L (98-107); CREATININE 1.1 MG/DL (0.55-1.30); POTASSIUM 3.7 MMOL/L (3.5-5.1); SODIUM 141 MMOL/L (136-145)
--- NOTE | 2018-07-13 06:41 | NUR ---
RESPIRATORY NOTE: Received pt on AC 20-600ml-40%- PEEP 5. Pt is orally intubated with ETT size 7.0 @23cm lips line, secured by anchor fast. pt is sedated with Ativan drips due to agitation, is resting comfortably in the bed, no SOB or resp distress noted at this time. Walt rhonchi heard upon auscultation, suctioned small amount of thick clear white secretions without incidents. Bite block in place to prevent tube biting, walt soft wrist restraints to prevent self extubation. Alarms are set and audible, vent circuits and sxn tub are secured and out of the way, vent is plugged into the red outlet, ambu bag is at bedside. Will continue to monitor pt.
--- NOTE | 2018-07-13 08:02 | NUR ---
NURSE NOTES: Patient report received from RONI Meza. Patient received awake and restless.ETT 09/04 AC 20 Vt 600 FiO2 40% Peep 5.On Ativan drip at 10mg/hr. On seizure and fall precaution.Siderails pads. Low grade fever at this time and cooling measure applied.Bladder scan done and 403cc retained.F/C in place and flushed with return of 275cc.Will continue to monitor. NPO at this time, abdomen soft and non distended.Mouth care done,suctioned as tolerated, kept clean and dry. Will continue to monitor.
--- NOTE | 2018-07-13 08:44 | NUR ---
RADIOLOGY DEPT., CHEST AND ABDOMEN X-RAYS COMPLETED.-P.DYE
--- NOTE | 2018-07-13 09:21 | NUR ---
NURSE NOTES: Called Dr Mejía regarding the Mg and ABG level.Order to consult with Dr Shine.Noted and carried out
--- NOTE | 2018-07-13 09:25 | NUR ---
NURSE NOTES: ABG and Mg level relayed to Dr Shine, awaiting new order
--- NOTE | 2018-07-13 10:11 | NUR ---
NURSE NOTES: Remains on heparin drip,easily arousal tactile stimuli.Ativan drip running still noted with restless.Will continue to monitor
--- NOTE | 2018-07-13 11:05 | NUR ---
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
--- NOTE | 2018-07-13 11:08 | Diagnostic Imaging Report ---
Indication: Cough Comparison: 08/18/2016 A single view chest radiograph was obtained. Findings: Endotracheal tube is a about 2 cm above the saji in good position. There is an NG tube present which is in good position. The lungs are clear. Heart size is normal. IMPRESSION: No acute findings. Tubes satisfactory in position
--- NOTE | 2018-07-13 11:09 | Diagnostic Imaging Report ---
Indication: NG tube Comparison: None Single view of the abdomen obtained Findings: NG tube is present. The proximal and distal ports are projected over the stomach. Bowel gas pattern is nonobstructive. IMPRESSION: NG tube in good position
--- NOTE | 2018-07-13 11:40 | Pulmonolgy Critical Care Note ---
Critical Care - Asmt/Plan Problems: (1) Acute metabolic encephalopathy (2) Acute respiratory failure (3) Seizure disorder (4) COPD (chronic obstructive pulmonary disease) (5) Diabetes mellitus (6) Prostate cancer, primary, 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 site (7) Chronic low back pain Respiratory: monitor respiratory rate, adjust FIO2, CXR Cardiac: continue to monitor HR/BP Renal: F/U I&O, keep IV fluid, check electrolytes Infectious Disease: check cultures Gastrointestinal: continue feedings/current rate Endocrine: monitor blood sugar, check HgA1C Hematologic: monitor H/H, transfuse if hgb<8.5 Neurologic: PRN Ativan, PRN Morphine, keep patient comfortable Affect: PRN ativan Prophylaxis: Protonix, Heparin Time Spent (Minutes): 40 Notes Reviewed: machinist mechanic, cardio, renal Discussed with: nurses, consultants, case packer and sealervisual display manager - Objective Last 24 Hour Vital Signs Date Time Temp Pulse Resp B/P (MAP) Pulse Ox O2 Delivery O2 Flow Rate FiO2 07/13/18 11:13 87 21 30 07/13/18 11:10 83 18 104/71 100 Mechanical Ventilator 40 07/13/18 10:00 20 Mechanical Ventilator 30 07/13/18 10:00 85 20 106/68 100 Mechanical Ventilator 40 07/13/18 09:02 87 20 30 07/13/18 09:00 87 20 104/65 100 Mechanical Ventilator 40 07/13/18 09:00 16 Mechanical Ventilator 30 07/13/18 08:00 Mechanical Ventilator 07/13/18 08:00 89 07/13/18 08:00 20 Mechanical Ventilator 40 07/13/18 08:00 88 20 94/67 100 Mechanical Ventilator 40 07/13/18 08:00 40 07/13/18 07:00 99.6 89 20 109/78 100 Mechanical Ventilator 40 07/13/18 06:41 92 20 40 07/13/18 06:00 93 20 95/71 100 Mechanical Ventilator 40 07/13/18 06:00 20 Mechanical Ventilator 40 07/13/18 05:30 97 20 110/79 100 Mechanical Ventilator 40 07/13/18 05:14 100 20 40 07/13/18 05:02 20 Mechanical Ventilator 40 07/13/18 05:00 20 Mechanical Ventilator 40 07/13/18 05:00 97 21 110/69 100 Mechanical Ventilator 40 07/13/18 04:30 99 20 102/72 100 Mechanical Ventilator 40 07/13/18 04:00 Mechanical Ventilator 07/13/18 04:00 20 Mechanical Ventilator 40 07/13/18 04:00 40 07/13/18 04:00 103 07/13/18 04:00 99.1 101 20 121/77 100 Mechanical Ventilator 40 07/13/18 03:30 89 20 155/90 100 Mechanical Ventilator 40 07/13/18 03:11 95 24 40 07/13/18 03:00 20 Mechanical Ventilator 40 07/13/18 03:00 93 20 123/81 100 Mechanical Ventilator 40 07/13/18 02:30 96 20 136/89 100 Mechanical Ventilator 40 07/13/18 02:00 20 Mechanical Ventilator 40 07/13/18 02:00 50 07/13/18 02:00 93 19 129/77 100 Mechanical Ventilator 40 07/13/18 01:51 20 Mechanical Ventilator 50 07/13/18 01:30 91 19 132/83 99 Mechanical Ventilator 50 07/13/18 01:13 Mechanical Ventilator 07/13/18 01:00 98.5 90 20 141/89 100 Mechanical Ventilator 50 07/13/18 00:35 90 20 100 Mechanical Ventilator 50 07/13/18 00:33 90 20 50 07/13/18 00:30 85 Status: awake Condition: critical Neck: full ROM Lungs: clear, chest wall tender Abdomen: soft Extremities: no C/C/E Decubiti: location, stage Accucheck: 96 Critical Care - Subjective ROS Limited/Unobtainable: Yes ICU Day: 1 Intubation Day: 1 Interval Events: 72 year old male with hx of DM, COPD, prostate cancer, seizure disorder was taken to [facility] with seizures and respiratory failure. He was intubated in their ER and [place] [facility] [place]. FI02: 30 Vent Support Breath Rate: 20 Vent Support Mode: AC Vent Tidal Volume: 600 Sputum Amount: Scant PEEP: 5.0 PIP: 27 I&O: Intake and Output 07/12/18 07/13/18 19:00 07:00 Intake Total 775 ml Output Total 330 ml Balance 445 ml Intake IV Total 775 ml Output Urine Total 330 ml CXR: ET in good position ET-Tube: 7.0 ET Position: 23 Labs: Laboratory Tests Test 07/13/18 04:35 07/13/18 07:13 07/13/18 08:40 White Blood Count 10.0 K/UL (4.8-10.8) Red Blood Count 4.08 M/UL (4.70-6.10) L Hemoglobin 12.2 G/DL (14.2-18.0) L Hematocrit 36.5 % (42.0-52.0) L Mean Corpuscular Volume 90 FL (80-99) Mean Corpuscular Hemoglobin 29.9 PG (27.0-31.0) Mean Corpuscular Hemoglobin Concent 33.3 G/DL (32.0-36.0) Red Cell Distribution Width 13.2 % (11.6-14.8) Platelet Count 165 K/UL (150-450) Mean Platelet Volume 6.6 FL (6.5-10.1) Neutrophils (%) (Auto) 80.1 % (45.0-75.0) H Lymphocytes (%) (Auto) 9.6 % (20.0-45.0) L Monocytes (%) (Auto) 10.0 % (1.0-10.0) Eosinophils (%) (Auto) 0.0 % (0.0-3.0) Basophils (%) (Auto) 0.4 % (0.0-2.0) Activated Partial Thromboplast Time 27 SEC (23-33) Sodium Level 141 MMOL/L (136-145) Potassium Level 3.7 MMOL/L (3.5-5.1) Chloride Level 106 MMOL/L (98-107) Carbon Dioxide Level 25 MMOL/L (21-32) Anion Gap 10 mmol/L (5-15) Blood Urea Nitrogen 19 mg/dL (7-18) H Creatinine 1.1 MG/DL (0.55-1.30) Estimat Glomerular Filtration Rate mL/min (>60) Glucose Level 107 MG/DL (74-106) H Hemoglobin A1c 5.6 % (4.3-6.0) Calcium Level 8.7 MG/DL (8.5-10.1) Magnesium Level 1.6 MG/DL (1.8-2.4) L Levetiracetam (Keppra) Level Pending Arterial Blood pH 7.560 (7.350-7.450) Arterial Blood Partial Pressure CO2 24.2 mmHg (35.0-45.0) *L Arterial Blood Partial Pressure O2 202.6 mmHg (75.0-100.0) H Arterial Blood HCO3 21.2 mmol/L (22.0-26.0) L Arterial Blood Oxygen Saturation 99.1 % (95-100) Arterial Blood Base Excess 0.2 (-2-2) Sudhakar Test Positive Maria E Shine MD July 13, 2018 11:39
--- NOTE | 2018-07-13 11:46 | NUR ---
RD ASSESSMENT & RECOMMENDATIONS SEE CARE ACTIVITY FOR COMPLETE ASSESSMENT DAILY ESTIMATED NEEDS: Needs based on Critical care, 80kg 22-28 kcals/kg 1979-1026 total kcals 1-2 g protein/kg 80-160 g total protein 25-30 mL/kg 8427-4429 total fluid mLs NUTRITION DIAGNOSIS: Swallowing difficulty R/T respiratory status as evidenced by pt is orally intubated, currently NPO w/ NGT to LIS. CURRENT TF:NPO PO DIET RECOMMENDATIONS: PRECIPITATE WASHER evaluation post extubation ENTERAL NUTRITION RECOMMENDATIONS: [WHEN ABLE TO FEED VIA GI] Vital AF 1.2 @ 60ml/hr x 24 hrs to provide 1440ml, 1728kcal, 105g prot, 1167ml free water * WHEN ABLE TO FEED VIA GI AND MEDICALLY APPROPRIATE (PT W/ NGT TO LIS AT THIS TIME) -> Initiate Vital AF 1.2 @ 10ml/hr x 6 hrs, advance 10ml q 4-6 hrs as tolerated to goal rate. * HOB over 30 degrees/ water flush per MD ADDITIONAL RECOMMENDATIONS: * Obtain calibrated bedscale wt for accurate CBW * Monitor NPO status, ability to feed: w/ NGT to LIS at this time * Monitor lytes, replete as needed (low mag) .
--- NOTE | 2018-07-13 11:50 | NUR ---
NURSE NOTES: Seen by Dr Shine with new order and order to start feeding.Noted and carried out. Per Dr Shine follow up with neuro regarding Ativan .
--- NOTE | 2018-07-13 12:00 | NUR ---
NURSE NOTES: Message left for Jorje Verdin regarding EEG order
--- NOTE | 2018-07-13 12:17 | NUR ---
NURSE NOTES: Relayed to Dr Shine venous duplex result acute right leg dvt, start heparin drip.Noted and carried out
--- NOTE | 2018-07-13 12:17 | NUR ---
NURSE NOTES: Dr. Torres"s office notified of consult
--- NOTE | 2018-07-13 12:41 | NUR ---
NURSE NOTES: ABG relayed to Dr Shine with order to decrease AC to 14, order noted and carried out
--- NOTE | 2018-07-13 12:54 | NUR ---
RESPIRATORY NOTE: Changed the RR to [address] Shine's order. Pt is mercedes well the set. RONI Valdez made aware. Will continue to monitor.
[2018-07-13] MEDS ORDERED: Heparin 5000 units/ml inj IV SCH (13:00)
[2018-07-13] MEDS ORDERED: Heparin 25,000u/D5W 500ml 500 ML IV SCH (13:00)
[2018-07-13 13:21] LABS: BASOPHILS % (AUTO) 0.7 % (0.0-2.0); EOSINOPHILS % (AUTO) 1.1 % (0.0-3.0); HEMATOCRIT 36.1 % (42.0-52.0); HEMOGLOBIN 11.9 G/DL (14.2-18.0); LYMPHOCYTES % (AUTO) 14.5 % (20.0-45.0); MEAN CORPUSCULAR VOLUME 89 FL (80-99); MONOCYTES % (AUTO) 14.9 % (1.0-10.0); NEUTROPHILS % (AUTO) 68.8 % (45.0-75.0); PLATELET COUNT 128 K/UL (150-450); RED BLOOD COUNT 4.07 M/UL (4.70-6.10); RED CELL DISTRIBUTION WIDTH 13.1 % (11.6-14.8)
--- NOTE | 2018-07-13 14:02 | NUR ---
NURSE NOTES: Turned and repositioned.Heparin drip and feeding started.GT placement checked and intact , flushed as tolerated.Keeep HOB elevated at 35 degree to prevent aspiration.Will continue to monitor
--- NOTE | 2018-07-13 15:04 | NUR ---
Social Work This Sw met with patient who is currently sedated, intubated. Patient is from [facility]. Patient is know to this Sw from previous admissions and was homeless prior. This Sw contacted medical records at [facility] who will fax the POLST to ICU (stating POLST was signed by patient, requesting full code, full treatment). This Sw spoke with the Head Shipper, Delma @ [facility] who explained they had been in contact with patients brother, Giovanny Beck (cell: [phone] or [phone]) within the last six months, had visited patient in the halfway. This Sw made an attempt to locate brother. Cell phone was no longer in service, while [phone] rings , with no answer or voicemail available. SW to follow further, to locate family, as needed.
--- NOTE | 2018-07-13 16:04 | NUR ---
NURSE NOTES: Patient turned and repositioned.Mouth care done,kept clean dry and comfortable.Will continue to monitor
[2018-07-13] MEDS ORDERED: DEXTROSE IV SCH (17:00)
[2018-07-13] MEDS ORDERED: LEVETIRACETAM IV SCH (17:00)
--- NOTE | 2018-07-13 18:01 | NUR ---
NURSE NOTES: ADLS DONE, MOUTH CARE PREFORM ,TURNED AND REPOSITIONED.HOB ELEVATED TO PREVENT ASPIRATION.
[2018-07-13] MEDS: Morphine Sulfate 4mg/ml Inj (IV USE ONLY) IVP PRN (18:09)
--- NOTE | 2018-07-13 19:08 | NUR ---
HAND-OFF: Report given to RONI Meza.
--- NOTE | 2018-07-13 19:09 | NUR ---
RESPIRATORY NOTE: Received pt on AC 14, 600VT, 30%, PEEP +5. Pt intubated w/ ETT 7.0 @ 23cm lipline, secured by anchorfast. Pt currently sedated. B/S aminata segura minimal amounts of thick, gonzáles-brown secretions w/ occasional blood. Vent plugged into red outlet, ambubag at bedside. Pt in no apparent distress at this time. Will continue to monitor pt. Addendum: 07/13/18 at 1916 by ALTAF SAUCEDO RT Bite block in place as pt tends to bite down ETT. Both hands on soft restraints to prevent pt from self-extubation.
--- NOTE | 2018-07-13 19:18 | History & Physical ---
History and Physical History & Physicial Dictated for Int med-Dr Mejía no. [id number]. ICU Michael Rojo MD July 13, 2018 19:18
[2018-07-13] MEDS: Heparin 25,000u/D5W 500ml 500 ML IV SCH (19:36)
--- NOTE | 2018-07-13 20:00 | NUR ---
NURSE NOTES: Patient report received from RONI Valdez. Patient received awake and restless. ETT 09/04 AC 20 Vt 600 FiO2 30% Peep 5.On Ativan drip at 10mg/hr. On seizure and fall precaution.Siderails pads. Low grade fever at this time and cooling measure applied.F/C in place and flushed with return of 275cc.Will continue to monitor. NPO at this time, abdomen soft and non distended.Mouth care done,suctioned as tolerated, kept clean and dry. Will continue to monitor.
--- NOTE | 2018-07-13 20:30 | NUR ---
NURSE NOTES: Patients left upper arm IV line infiltrated. Only access right now is the Right EJ. Patient is a hard stick. Will continue to try to get a new IV access. Patient right now is calm and well sedated. Ativan gtt has been switched to Versed gtt. No acute distress at this time. BP has been sustaining within normal parameters and HR has been in the 90s SR. Oral care was done. Alot of oral clear secretions noted.
[2018-07-13] MEDS: Versed 50mg/D5W 100ml 100 ML IV PRN (21:13)
--- NOTE | 2018-07-13 22:00 | NUR ---
NURSE NOTES: Patient repositioned. Were still trying to get a new IV access, patient is a hard stick. Multiple attempts from different staff nurses have tried inserting an IV but was unsuccessful. BP and HR remains stable, patient was suctioned. Will continue to monitor.
--- NOTE | 2018-07-13 23:15 | History and Physical Report ---
DATE OF ADMISSION: 07/13/2018 CHIEF COMPLAINT: The patient is a 72-year-old male with history of traumatic brain injury and seizure disorder who is admitted with chief complaint of intractable seizures. HISTORY OF PRESENT ILLNESS: The patient is a resident of [facility]. The patient began to have seizure activity yesterday, 07/12/2018. The patient was initially transported to [facility]. The patient is transferred to [facility] for insurance purposes. The patient is admitted with intractable breakthrough seizure. REVIEW OF SYSTEMS: Unable to assess secondary to the patient's mental status. PAST MEDICAL HISTORY: 1. Traumatic brain injury as above. 2. Seizure disorder. 3. Chronic obstructive pulmonary disease. 4. Metabolic encephalopathy. 5. Diabetes type 2. 6. Renal failure. 7. Hypertension. 8. Gastroesophageal reflux disease. 9. Coronary artery disease. 10. Anemia. 11. History of gastrointestinal hemorrhage. 12. Hypercholesterolemia. 13. Dysphagia, status post PEG placement. 14. Cerebrovascular disease, status post cerebrovascular accident. PAST SURGICAL HISTORY: Significant for PEG placement. CURRENT MEDICATIONS: From [place]: 1. Cymbalta 30 mg p.o. daily. 2. Depakote 500 mg per G-tube daily. 3. Dilantin extended release 180 mg 1 per G-tube daily. 4. Keppra 750 mg per G-tube 2 tablets per G-tube twice daily. 5. Lipitor 20 mg per G-tube at bedtime. 6. Metoprolol 25 mg per G-tube twice daily. 7. [place] 10/325 mg one tablet p.o. q.6 h. p.r.n. 8. Tylenol 650 mg per G-tube q.4 h. p.r.n. 9. Vimpat 150 mg per G-tube twice daily. 10. Zantac 150 mg per G-tube at bedtime. ALLERGIES: No known drug allergies. PHYSICAL EXAMINATION: VITAL SIGNS: Temperature 98.2, respirations 16 to 18, pulse 89, and blood pressure 120/60. GENERAL: The patient is a thin-appearing male, in no apparent distress. The patient is intubated and sedated. HEENT: Eyes, pupils are equal and responsive to light and accommodation. Extraocular movements are intact. NECK: Supple. No lymphadenopathy. CHEST: Few expiratory wheezes bilaterally. Otherwise, without crackles or rales. CARDIOVASCULAR: Tachycardic, regular rate. S1 and S2 are normal without murmurs, rubs, or gallops. ABDOMEN: Soft, nontender, and nondistended. Positive bowel sounds. No evidence of hepatosplenomegaly. Currently, no rebound or guarding noted. EXTREMITIES: Negative for clubbing, cyanosis, or edema. RECTAL/GENITAL: Not performed. NEUROLOGICALLY: Unable to assess secondary to the patient's mental status. LABORATORY STUDIES: Sodium 139, potassium 4.2, chloride 104, CO2 29, BUN 20, creatinine 0.96, and glucose 113. WBC 4.4, hemoglobin 14.2, hematocrit 42.2, and platelets 164,000. A chest x-ray revealed increased haziness in the right upper lobe. ASSESSMENT: This is a 72-year-old male. 1. Intractable seizures. 2. Respiratory failure. 3. Probable pneumonia of the right upper lobe. 4. History of seizure disorder. 5. Chronic obstructive pulmonary disease. 6. Diabetes type 2. 7. Hypertension. 8. Metabolic encephalopathy. 9. Chronic obstructive pulmonary disease. 10. Chronic renal failure. 11. Traumatic brain injury. 12. Gastroesophageal reflux disease. 13. Coronary artery disease. 14. Anemia. 15. History of gastrointestinal hemorrhage. 16. Hypercholesteremia. 17. Cerebrovascular disease, status post cerebrovascular accident. 18. Dysphagia. TREATMENT: 1. Intractable seizure. A Neurology consultation has been obtained. The patient has been started on Ativan intravenously. We will follow recommendations of Neurology. Continue Keppra, Dilantin, and Depakote as above. 2. Respiratory failure. Pulmonary consultation has been obtained with Dr. Maria E Shine. The patient is currently intubated in the intensive care unit. We will follow recommendations of Pulmonary. 3. Chronic obstructive pulmonary disease. As above, a Pulmonary consultation has been obtained with Dr. Maria E Shine. 4. Diabetes type 2. The patient has been placed on a NovoLog sliding scale. 5. Hypertension. The patient is currently hypotensive. 6. Metabolic encephalopathy. 7. Renal failure. 8. Traumatic brain injury. 9. Gastroesophageal reflux disease. 10. Coronary artery disease. 11. Anemia. 12. Gastrointestinal hemorrhage. 13. Hypercholesterolemia. 14. Cerebrovascular disease. 15. Dysphagia, status post PEG placement. Michael Claire Rojo DR: ALIYA JOB#: [id number] CC:
[2018-07-14] VITALS (34 sets, daily range): BP systolic 93–152; BP diastolic 53–86
--- NOTE | 2018-07-14 00:25 | NUR ---
NURSE NOTES: Message left for Aletha RAYMOND at this time. Abnormal EEG reading. Awaiting call back.
[2018-07-14] MEDS ORDERED: Valproate Sodium INJ 1,000 MG in D5W 55 ML IV SCH (01:00)
--- NOTE | 2018-07-14 01:51 | NUR ---
NURSE NOTES: Aletha here to see the patient notified her that patient has only one IV access at this time. Heparin can not be stopped and Valporic sodium can not be given. Aletha ADVERTISING ACCOUNT REPRESENTATIVE said its okay to insert IV on left leg until central line is obtained, aware that patient has DVT on right leg.
--- NOTE | 2018-07-14 02:00 | NUR ---
NURSE NOTES: Patient repositioned and given oral care. Patient remains sedated. No agitated or combativeness. Oral secretions suctioned. BP remains stable, HR remains stable. No new changes.
--- NOTE | 2018-07-14 04:00 | NUR ---
NURSE NOTES: Patient was cleaned and repositioned. Versed gtt ongoing, maintenance fluids ongoing, feeds ongoing, no residual. Will continue to monitor.
[2018-07-14] MEDS: NS w/KCl 20mEq 1000ml 1,000 ML IV SCH ×2 (04:50→12:53)
[2018-07-14 05:41] LABS: BASOPHILS % (AUTO) 0.5 % (0.0-2.0); HEMATOCRIT 40.3 % (42.0-52.0); HEMOGLOBIN 13.3 G/DL (14.2-18.0); LYMPHOCYTES % (AUTO) 13.3 % (20.0-45.0); MEAN CORPUSCULAR VOLUME 92 FL (80-99); MONOCYTES % (AUTO) 13.3 % (1.0-10.0); PLATELET COUNT 130 K/UL (150-450); RED CELL DISTRIBUTION WIDTH 13.8 % (11.6-14.8); WHITE BLOOD COUNT 6.2 K/UL (4.8-10.8)
[2018-07-14] MEDS: NovoLOG Insulin Flexpen SUBQ SCH ×3 (06:00→17:17)
--- NOTE | 2018-07-14 06:00 | NUR ---
NURSE NOTES: Repositioned patient and given oral care. Hung new bag of heparin gtt. Vitals remains stable at this time, Accucheck this morning is 105. No BM the whole night.
[2018-07-14] MEDS: Heparin 25,000u/D5W 500ml 500 ML IV SCH (06:02)
[2018-07-14 06:13] LABS: ALANINE AMINOTRANSFERASE 109 U/L (12-78); ALBUMIN 3.1 G/DL (3.4-5.0); ALBUMIN/GLOBULIN RATIO 0.7 (1.0-2.7); ALKALINE PHOSPHATASE 179 U/L (46-116); ANION GAP 12 mmol/L (5-15); ASPARTATE AMINO TRANSFERASE 86 U/L (15-37); BILIRUBIN,TOTAL 0.5 MG/DL (0.2-1.0); BLOOD UREA NITROGEN 13 mg/dL (7-18); CALCIUM 8.8 MG/DL (8.5-10.1); CARBON DIOXIDE 22 MMOL/L (21-32); CHLORIDE 108 MMOL/L (98-107); CREATININE 1.1 MG/DL (0.55-1.30); POTASSIUM 3.9 MMOL/L (3.5-5.1); SODIUM 142 MMOL/L (136-145)
--- NOTE | 2018-07-14 07:01 | NUR ---
RESPIRATORY NOTE: Received patient on ordered vent settings. Airway is patent and secured. No resp distress noted. Suctioned patient PRN. Vent alarms are on and audible. Vent is plugged into red outlet. Will monitor patient progress.
--- NOTE | 2018-07-14 07:29 | NUR ---
NURSE NOTES: Report received Derrick TAMAYO. Pt is sleepy but arousable, confused and forgetful. Pt on monitoring manager, SR. Pt orally intubated ETT 7, 23 cm at the lipline, Ac 16, TV 400, 30% fiO2, PEEP 5. Right nare NGT noted and intact connected to glucerna 1.2 at 30 cc/hr . Sims noted and intact draining clear, yellow urine to gravity. Right EJ and Left foot IVs noted and intact. Versed drip at 4mg/hr. Heparin at 16u/kg/hr and D5NS + 20K at 75 cc/hr. Safety measures in place with bed locked and in lowest position, side rails x 3 up and bed alarm on. Will continue to monitor and continue plan of care.
--- NOTE | 2018-07-14 07:58 | Pulmonolgy Critical Care Note ---
Critical Care - Asmt/Plan Assessment/Plan: ASSESSMENT Acute respiratory failure requiring intubation Acute metabolic encephalopathy Acute DVT RLE COPD Seizure disorder with breakthrough episode ( prior to admission) Hx of traumatic brain injury Diabetes mellitus ? Prostate cancer Hypomagnesemia Anemia Transaminitis Hx of CVA PLAN OF CARE ICU heparin gtt venous duplex BLE with acute DVT RLE CF to popliteal veins Vent support pulmonary toilet f/up p with ABG and chest x-ray optimize settings as needed EEG neuro follows. seizure precaution, continue Keppra IV Mg replaced GI prophylaxis Versed gtt BS management with sliding scale /sensitive of insulin , hemoglobin A1c - 5.6 monitor H&H we will goal to keep hemoglobin above trend LFT, supportive care case discussed and evaluated by supervising physician Critical Care - Objective Last 24 Hour Vital Signs Date Time Temp Pulse Resp B/P (MAP) Pulse Ox O2 Delivery O2 Flow Rate FiO2 07/14/18 07:01 81 14 30 07/14/18 07:00 84 14 108/61 100 Mechanical Ventilator 30 07/14/18 06:00 86 14 104/61 100 Mechanical Ventilator 30 07/14/18 05:30 80 14 98/56 100 Mechanical Ventilator 30 07/14/18 05:15 85 14 30 07/14/18 05:00 82 14 101/61 100 Mechanical Ventilator 30 07/14/18 05:00 14 Mechanical Ventilator 30 07/14/18 04:30 87 14 109/65 100 Mechanical Ventilator 30 07/14/18 04:00 30 07/14/18 04:00 99.0 78 14 93/53 100 Mechanical Ventilator 30 07/14/18 04:00 14 Mechanical Ventilator 30 07/14/18 04:00 Mechanical Ventilator 07/14/18 04:00 77 07/14/18 03:30 82 14 112/63 100 Mechanical Ventilator 30 07/14/18 03:15 101 18 30 07/14/18 03:00 14 Mechanical Ventilator 30 07/14/18 03:00 98 14 109/73 100 Mechanical Ventilator 30 07/14/18 02:00 100.0 104 14 106/65 100 Mechanical Ventilator 30 07/14/18 02:00 14 Mechanical Ventilator 30 07/14/18 01:30 97 14 102/78 100 Mechanical Ventilator 30 07/14/18 01:05 98 19 30 07/14/18 01:00 99 14 121/63 100 Mechanical Ventilator 30 07/14/18 00:30 105 14 136/86 100 Mechanical Ventilator 30 07/14/18 00:00 105 07/14/18 00:00 99.7 101 14 120/70 100 Mechanical Ventilator 30 07/14/18 00:00 30 07/14/18 00:00 Mechanical Ventilator 07/13/18 23:04 99 14 30 07/13/18 23:00 14 Mechanical Ventilator 30 07/13/18 23:00 93 14 116/64 100 Mechanical Ventilator 30 07/13/18 22:30 101 14 102/59 100 Mechanical Ventilator 30 07/13/18 22:00 14 Mechanical Ventilator 30 07/13/18 22:00 100 15 114/61 100 Mechanical Ventilator 30 07/13/18 21:30 98 16 120/67 100 Mechanical Ventilator 30 07/13/18 21:13 14 Mechanical Ventilator 30 07/13/18 21:08 98 14 30 07/13/18 21:00 97 15 116/66 100 Mechanical Ventilator 30 07/13/18 20:30 93 14 102/62 100 Mechanical Ventilator 30 07/13/18 20:00 99.3 94 15 117/71 100 Mechanical Ventilator 30 07/13/18 20:00 30 07/13/18 20:00 97 07/13/18 20:00 Mechanical Ventilator 07/13/18 19:06 95 14 30 07/13/18 19:00 14 Mechanical Ventilator 30 07/13/18 19:00 90 14 122/64 100 Mechanical Ventilator 40 07/13/18 18:39 98.2 07/13/18 18:09 20 Mechanical Ventilator 30 07/13/18 18:00 16 Mechanical Ventilator 30 07/13/18 18:00 100 14 121/65 100 Mechanical Ventilator 40 07/13/18 17:00 95 14 129/66 100 Mechanical Ventilator 40 07/13/18 17:00 16 Mechanical Ventilator 30 07/13/18 16:43 94 16 30 07/13/18 16:00 87 07/13/18 16:00 30 07/13/18 16:00 18 Mechanical Ventilator 30 07/13/18 16:00 98.2 89 16 128/60 100 Mechanical Ventilator 40 07/13/18 16:00 Mechanical Ventilator 07/13/18 15:00 88 16 120/70 100 Mechanical Ventilator 40 07/13/18 15:00 14 Mechanical Ventilator 30 07/13/18 14:42 81 14 30 07/13/18 14:00 16 Mechanical Ventilator 30 07/13/18 14:00 79 18 108/62 100 Mechanical Ventilator 40 07/13/18 13:01 16 Mechanical Ventilator 30 07/13/18 13:00 85 18 102/65 100 Mechanical Ventilator 40 07/13/18 12:53 84 14 30 07/13/18 12:23 20 Mechanical Ventilator 30 07/13/18 12:00 30 07/13/18 12:00 Mechanical Ventilator 07/13/18 12:00 98.3 81 20 129/79 100 Mechanical Ventilator 40 07/13/18 12:00 87 07/13/18 11:13 87 21 30 07/13/18 11:10 83 18 104/71 100 Mechanical Ventilator 40 07/13/18 11:00 20 Mechanical Ventilator 30 07/13/18 10:00 20 Mechanical Ventilator 30 07/13/18 10:00 85 20 106/68 100 Mechanical Ventilator 40 07/13/18 09:02 87 20 30 07/13/18 09:00 87 20 104/65 100 Mechanical Ventilator 40 07/13/18 09:00 16 Mechanical Ventilator 30 07/13/18 08:00 Mechanical Ventilator 07/13/18 08:00 89 07/13/18 08:00 20 Mechanical Ventilator 40 07/13/18 08:00 88 20 94/67 100 Mechanical Ventilator 40 07/13/18 08:00 40 Status: sedated, other - intubated on Vent 600-14-30% Condition: critical HEENT: atraumatic, normocephalic, other - NGT with TF, secretions scant amount , gonzáles color, thick consistency , OP with ET in place, intact Lungs: clear Heart: HR/BP stable Abdomen: soft - mild distention, old healed abdominal scars, non-tender, active bowel sounds Extremities: no C/C/E Micro: Microbiology Date/Time Source Procedure Growth Status 07/13/18 04:00 Sputum Gram Stain - Final Resulted 07/13/18 04:00 Sputum Sputum Culture - Preliminary NORMAL UPPER RESPIRATORY TAI AT 24 ... Resulted 07/13/18 04:00 Straight Cath Urine Culture - Preliminary Staphylococcus Species Resulted Accucheck: 105 Critical Care - Subjective ROS Limited/Unobtainable: Yes Interval Events: remains intubated, no signs of respiratory distress on current settings afebrile, no leukocytosis Venous Duplex + acute DVT, on heparin gtt Condition: critical IV Access: peripheral EKG Rhythm: Sinus Rhythm FI02: 30 Vent Support Breath Rate: 14 Vent Support Mode: AC Vent Tidal Volume: 600 Sputum Amount: Scant PEEP: 5.0 PIP: 23 Fluids: NS + 20 KCL at 75 Drips: Versed gtt at 2 mg/hr, Heparin gtt per pharmacy dosing Tube Feeding Amount: 30 I&O: Intake and Output 07/13/18 07/14/18 18:59 06:59 Intake Total 1944.565 ml 1420.613 ml Output Total 785 ml 320 ml Balance 1159.565 ml 1100.613 ml Intake Free Water 200 ml 90 ml IV Total 1654.565 ml 940.613 ml Tube Feeding 90 ml 390 ml Output Urine Total 785 ml 320 ml CXR: CXR 07/14 - Lungs: Lungs are mildly hypoinflated. No definite airspace consolidation. Pleural spaces: Unremarkable. No pneumothorax. Heart: Cardiac silhouette is within normal limits. Mediastinum: Endotracheal tube unchanged in position with the tip approximately 2.8 cm above the saji. Enteric tube again seen with tip in the gastric lumen. Bones: Unremarkable. No acute fracture. ET-Tube: 7.0 ET Position: 23 Sharla Mandujano NP Jul 14, 2018 07:58
[2018-07-14] MEDS ORDERED: LEVETIRACETAM IV SCH ×2 (08:00→09:00)
[2018-07-14] MEDS ORDERED: DEXTROSE IV SCH ×2 (08:00→09:00)
[2018-07-14] MEDS ORDERED: Lidocaine 1% Plain 30 ml INJ PRN (08:48)
--- NOTE | 2018-07-14 09:03 | Diagnostic Imaging Report ---
EXAM: XR Chest, 1 View. CLINICAL HISTORY: DYSPNEA TECHNIQUE: Frontal view of the chest. COMPARISON: 07/13/18 at 0802 hrs. FINDINGS: Lungs: Lungs are mildly hypoinflated. No definite airspace consolidation. Pleural spaces: Unremarkable. No pneumothorax. Heart: Cardiac silhouette is within normal limits. Mediastinum: Endotracheal tube unchanged in position with the tip approximately 2.8 cm above the saji. Enteric tube again seen with tip in the gastric lumen. Bones: Unremarkable. No acute fracture. IMPRESSION: Stable exam.
--- NOTE | 2018-07-14 09:59 | NUR ---
NURSE NOTES: Sharla RAYMOND came to see pt on behalf of Dr Shine. PICC line insertion ordered. Obtained consent from of pt. VSS. Will continue to monitor.
[2018-07-14] MEDS ORDERED: NS 275ml ONE (10:10)
[2018-07-14] MEDS: Versed 50mg/D5W 100ml 100 ML IV PRN ×4 (10:36→22:14)
--- NOTE | 2018-07-14 11:30 | NUR ---
NURSE NOTES: Turned and repositioned pt. Suctioned pt. VSS. Will continue to monitor.
[2018-07-14] MEDS: Valproate Sodium INJ 1,000 MG in D5W 55 ML IV SCH (13:31)
[2018-07-14] MEDS: LORazepam Inj 2mg/ml 1ml IV PRN (13:41)
--- NOTE | 2018-07-14 13:43 | NUR ---
NURSE NOTES: Pt given ativan IV prn anxiety. Versed drip also increased. VSS. Will continue to monitor.
--- NOTE | 2018-07-14 14:14 | Internal Med Progress Note ---
Subjective Date of Service: Jul 14, 2018 Physician Name Michael Rojo Attending Physician Will Mejía MD Current Medications Medications (Trade) Dose Ordered Sig/Jesi Route PRN Reason Start Time Stop Time Status Last Admin Dose Admin Chlorhexidine Gluconate (Candie-Hex 2%) 1 applic DAILY@2000 TOPIC 07/14/18 20:00 08/13/18 19:59 Dextrose (Dextrose 50%) 25 ml Q30M PRN IV Hypoglycemia 07/13/18 01:15 08/12/18 01:14 Dextrose (Dextrose 50%) 50 ml Q30M PRN IV Hypoglycemia 07/13/18 01:15 08/12/18 01:14 Famotidine (Pepcid I.v.) 20 mg Q12HR IVP 07/13/18 09:00 08/12/18 08:59 07/14/18 08:09 Heparin Sodium/ Dextrose 500 ml @ 25.7 mls/hr ADJUST PER PROTOCOL IV 07/13/18 19:30 08/12/18 19:29 07/14/18 06:02 Insulin Aspart (NovoLOG) EVERY 6 HOURS SUBQ 07/14/18 00:00 08/12/18 12:29 Levetiracetam 1500 mg/Dextrose 110 ml @ 440 mls/hr Q12HR IV 07/14/18 09:00 08/13/18 08:59 07/14/18 08:09 Lidocaine HCl (Xylocaine 1% 30ml) 30 ml ONCE PRN INJ picc 07/14/18 08:48 07/14/18 23:59 Lorazepam (Ativan 2mg/ml 1ml) 2 mg Q4H PRN IV For Anxiety 07/13/18 11:45 07/20/18 11:44 07/14/18 13:41 Midazolam HCl 100 ml @ 0 mls/hr Q24H PRN IV Agitation 07/13/18 19:15 07/20/18 19:14 07/14/18 10:36 Morphine Sulfate (Morphine Sulfate) 4 mg Q4H PRN IVP For Pain 07/13/18 12:00 07/20/18 11:59 07/13/18 18:09 Potassium Chloride/Sodium Chloride 1,000 ml @ 75 mls/hr [id number] IV 07/13/18 02:00 08/12/18 01:59 07/14/18 12:53 Valproate Sodium 1000 mg/Dextrose 65 ml @ 32.5 mls/hr Q12HR@0100,1300 IV 07/14/18 13:00 08/13/18 12:59 07/14/18 13:31 Allergies: Coded Allergies: HALOPERIDOL (Verified Allergy, Mild, [place] really bad, 07/05/16) Makes him irritable. THIORIDAZINE (Verified Allergy, Mild, [place] really bad, 07/05/16) Makes him violent TRAZODONE (Verified Allergy, Mild, [place] really bad, 07/05/16) Too strong; inability to move. Uncoded Allergies: PSYCHOTROPIC MEDICATION (Allergy, Mild, 08/13/14) ROS Limited/Unobtainable: Yes Subjective 72 YO M admitted with breakthrough seizure. Now respiratory failure. Intubated and sedated. Cover for Int Connor-Dr Mejía Objective Last Vital Signs Date Time Temp Pulse Resp B/P (MAP) Pulse Ox O2 Delivery O2 Flow Rate FiO2 07/14/18 14:00 97 14 117/70 100 Mechanical Ventilator 30 07/14/18 12:00 98.0 Laboratory Tests Test 07/13/18 18:40 07/14/18 01:35 07/14/18 04:00 Activated Partial Thromboplast Time 100 SEC (23-33) H 66 SEC (23-33) H White Blood Count 6.2 K/UL (4.8-10.8) Red Blood Count 4.40 M/UL (4.70-6.10) L Hemoglobin 13.3 G/DL (14.2-18.0) L Hematocrit 40.3 % (42.0-52.0) L Mean Corpuscular Volume 92 FL (80-99) Mean Corpuscular Hemoglobin 30.2 PG (27.0-31.0) Mean Corpuscular Hemoglobin Concent 33.0 G/DL (32.0-36.0) Red Cell Distribution Width 13.8 % (11.6-14.8) Platelet Count 130 K/UL (150-450) L Mean Platelet Volume 7.4 FL (6.5-10.1) Neutrophils (%) (Auto) 72.0 % (45.0-75.0) Lymphocytes (%) (Auto) 13.3 % (20.0-45.0) L Monocytes (%) (Auto) 13.3 % (1.0-10.0) H Eosinophils (%) (Auto) 1.0 % (0.0-3.0) Basophils (%) (Auto) 0.5 % (0.0-2.0) Sodium Level 142 MMOL/L (136-145) Potassium Level 3.9 MMOL/L (3.5-5.1) Chloride Level 108 MMOL/L (98-107) H Carbon Dioxide Level 22 MMOL/L (21-32) Anion Gap 12 mmol/L (5-15) Blood Urea Nitrogen 13 mg/dL (7-18) Creatinine 1.1 MG/DL (0.55-1.30) Estimat Glomerular Filtration Rate mL/min (>60) Glucose Level 105 MG/DL (74-106) Calcium Level 8.8 MG/DL (8.5-10.1) Total Bilirubin 0.5 MG/DL (0.2-1.0) Aspartate Amino Transf (AST/SGOT) 86 U/L (15-37) H Alanine Aminotransferase (ALT/SGPT) 109 U/L (12-78) H Alkaline Phosphatase 179 U/L (46-116) H Total Protein 7.3 G/DL (6.4-8.2) Albumin 3.1 G/DL (3.4-5.0) L Globulin 4.2 g/dL Albumin/Globulin Ratio 0.7 (1.0-2.7) L Microbiology Date/Time Source Procedure Growth Status 07/13/18 04:00 Sputum Gram Stain - Final Resulted 07/13/18 04:00 Sputum Sputum Culture - Preliminary NORMAL UPPER RESPIRATORY TAI AT 24 ... Resulted 07/13/18 04:00 Straight Cath Urine Culture - Preliminary Staphylococcus Species Resulted Intake and Output 07/13/18 07/14/18 19:00 07:00 Intake Total 2058.478 ml 1236.7 ml Output Total 840 ml 250 ml Balance 1218.478 ml 986.7 ml Intake Free Water 200 ml 90 ml IV Total 1708.478 ml 786.7 ml Tube Feeding 150 ml 360 ml Output Urine Total 840 ml 250 ml Objective PHYSICAL EXAMINATION: GENERAL: The patient is a thin-appearing male, in no apparent distress. The patient is intubated and sedated. HEENT: Eyes, pupils are equal and responsive to light and accommodation. Extraocular movements are intact. NECK: Supple. No lymphadenopathy. CHEST: Mech vent; Few expiratory wheezes bilaterally. Otherwise, without crackles or rales. CARDIOVASCULAR: Tachycardic, regular rate. S1 and S2 are normal without murmurs, rubs, or gallops. ABDOMEN: Soft, nontender, and nondistended. Positive bowel sounds. No evidence of hepatosplenomegaly. Currently, no rebound or guarding noted. EXTREMITIES: Negative for clubbing, cyanosis, or edema. RECTAL/GENITAL: Not performed. NEUROLOGICALLY: Unable to assess secondary to the patient's mental status. Assessment/Plan Assessment/Plan ASSESSMENT: This is a 72-year-old male. 1. Intractable seizures. 2. Respiratory failure. 3. Probable pneumonia of the right upper lobe. 4. History of seizure disorder. 5. Chronic obstructive pulmonary disease. 6. Diabetes type 2. 7. Hypertension. 8. Metabolic encephalopathy. 9. Chronic obstructive pulmonary disease. 10. Chronic renal failure. 11. Traumatic brain injury. 12. Gastroesophageal reflux disease. 13. Coronary artery disease. 14. Anemia. 15. History of gastrointestinal hemorrhage. 16. Hypercholesteremia. 17. Cerebrovascular disease, status post cerebrovascular accident. 18. Dysphagia. 19. Prostate cancer with mets 20. UTI=staph species TREATMENT: 1. Intractable seizure. A Neurology consultation has been obtained. The patient has been started on Ativan intravenously. We will follow recommendations of Neurology. Continue Keppra, Dilantin, and Depakote as above. 2. Respiratory failure. Pulmonary consultation has been obtained with Dr. Maria E Shine. The patient is currently intubated in the intensive care unit. We will follow recommendations of Pulmonary. 3. Chronic obstructive pulmonary disease. As above, a Pulmonary consultation has been obtained with Dr. Maria E Shine. 4. Diabetes type 2. The patient has been placed on a NovoLog sliding scale. 5. Hypertension. The patient is currently hypotensive. 6. Metabolic encephalopathy. 7. Renal failure. 8. Traumatic brain injury. 9. Gastroesophageal reflux disease. 10. Coronary artery disease. 11. Anemia. 12. Gastrointestinal hemorrhage. 13. Hypercholesterolemia. 14. Cerebrovascular disease. 15. Dysphagia, status post PEG placement. 16. Start vanco for staph UTI; start zosyn for peumonia-await urine and sputum cultures 17. ID consult=Michael Caballero MD Jul 14, 2018 14:14
--- NOTE | 2018-07-14 15:13 | NUR ---
NURSE NOTES: Dr Rojo here to see pt. Dr marlee ramirez and vi. Dr also called Dr Torres to see pt. No acute distress. Will continue to monitor.
[2018-07-14] MEDS: Piperacillin/Tazobactam 3.375 GM in NS 110 ML IVPB SCH (16:15)
--- NOTE | 2018-07-14 17:07 | NUR ---
NURSE NOTES: P200 mattress put on bed. Pt suctioned. VSS. Will continue to monitor.
[2018-07-14] MEDS: Vancomycin 1gm/D5W 275ml IVPB SCH ×2 (18:01)
--- NOTE | 2018-07-14 19:15 | NUR ---
HAND-OFF: Report given to Shauna TAMAYO.
--- NOTE | 2018-07-14 19:30 | NUR ---
NURSE NOTES: Received report from Sahara TAMAYO. Pt is sleepy but arousable, confused and forgetful. Pt on patient monitor, SR. Pt orally intubated ETT 7, 23 cm at the lip line, Ac 16, TV 400, 30% fiO2, PEEP 5. Right nare NGT noted and intact connected to Glucerna 1.2 at 30 cc/hr . HOB elevated. Sims noted and intact draining clear, yellow urine to gravity. Right EJ and Left foot IVs noted and intact. Versed drip at 16mg/hr. Heparin at 16u/kg/hr and D5NS + 20K at 75 cc/hr. Safety measures in place with bed locked and in lowest position, side rails x 3 up and bed alarm on.Bilateral wrist restraint checked, pat with episode of pulling out tubing. Seizure precaution maintained and observed. Will continue to monitor and continue plan of care.
[2018-07-14] MEDS: Dyna-Hex 2% Top Sol 2oz TOPIC SCH ×2 (20:00→20:43)
[2018-07-14] MEDS ORDERED: levETIRAcetam 500mg/NS100ml IVPB SCH (20:15)
[2018-07-14] MEDS: Morphine Sulfate 4mg/ml Inj (IV USE ONLY) IVP PRN (20:49)
[2018-07-14] MEDS: levETIRAcetam 1,000mg/NS100ml IVPB SCH (20:58)
--- NOTE | 2018-07-14 21:30 | NUR ---
NURSE NOTES: Patient with episode of restlessness and moaning and facial grimaces, repositioned nad pillow support provided not effective. Morphine IVP given for pain effective. Seen and examined by Aletha RAYMOND.
[2018-07-14] MEDS: levETIRAcetam 500mg/NS100ml IVPB SCH (21:38)
--- NOTE | 2018-07-14 23:30 | NUR ---
NURSE NOTES: Patient in bed with episodes of sliding self down from the bed and pulling out tubing despite of bilateral soft wrist restraint. Reality orientation provided. No s/s of hypo/hyperglycemia. No bleeding. No episode of seizure. will continue plan of care.
--- NOTE | 2018-07-14 23:45 | Electroencephalogram ---
DATE OF PROCEDURE: 07/14/2018 REQUESTING PHYSICIAN: Dr. Abad East DATE OF TRACIN07/14/2018 HISTORY: This EEG was performed on a 72-year-old gentleman with a history of seizure disorder and an altered mental state. The purpose of this EEG was to evaluate the patient for the degree and type of cerebral dysfunction and to exclude ongoing ictal or interictal phenomena. TECHNICAL NOTE: This EEG was performed on a [employer] with electrodes placed on the scalp according to the International 10-20 system. [id number] and [id number] montages were used. The EEG was technically satisfactory and was performed while the patient was in a sedated sleep state with Versed and Ativan given to her. OBSERVATIONS: In the sedated state, the background activity consisted of low-amplitude theta and delta frequencies. A moderate amount of superimposed 16-18 Hz beta activity was also seen. Interspersed FP1-F3 sharp and slow wave discharges were seen and less frequent FP2-F4 sharp discharges were seen. No electrographic or clinical seizures were noted. IMPRESSION: This is an abnormal EEG characterized by: 1. Low-amplitude slow activity in the theta and delta range with superimposed fast beta activity. 2. Interspersed FP1-F3 and FP2-F4 sharp and slow wave discharges seen throughout the tracing with the left-sided discharges being more frequent. COMMENT: This study is consistent with: 1. A moderately severe encephalopathy with a definite toxic component as evidenced by the abundance of beta activity. 2. Left more active than right frontal polar and frontal epileptogenic foci. Clinical correlation is recommended. Jori Donahue M.D., M.S.P.H. DR: JAKUB JOB#: [id number] [facility]OSPITALDejan
[2018-07-15] VITALS (44 sets, daily range): BP systolic 36–145; BP diastolic 56–82
[2018-07-15] MEDS: Valproate Sodium INJ 1,000 MG in D5W 55 ML IV SCH ×2 (00:49→12:21)
[2018-07-15] MEDS: Piperacillin/Tazobactam 3.375 GM in NS 110 ML IVPB SCH ×2 (00:49→08:14)
[2018-07-15] MEDS: Versed 50mg/D5W 100ml 100 ML IV PRN ×7 (01:14→22:02)
[2018-07-15] MEDS: NS w/KCl 20mEq 1000ml 1,000 ML IV SCH ×2 (01:15→17:09)
[2018-07-15] MEDS: Heparin 25,000u/D5W 500ml 500 ML IV SCH ×2 (01:20→20:14)
--- NOTE | 2018-07-15 01:30 | NUR ---
NURSE NOTES: Pt is sleepy but arousable, confused and forgetful. Pt on rn cardiac cath, SR HR 89. Pt orally intubated ETT 7, 23 cm at the lip line, Ac 16, TV 400, 30% fiO2, PEEP 5. Right nare NGT noted and intact connected to Glucerna 1.2 at 30 cc/hr . HOB elevated. Sims noted and intact draining clear, yellow urine to gravity. Right EJ and Left foot IVs noted and intact. Versed drip at 16mg/hr. Heparin at 16u/kg/hr and D5NS + 20K at 75 cc/hr. No episode of seizure. will continue plan of care.
--- NOTE | 2018-07-15 03:30 | NUR ---
NURSE NOTES: Bed bath given. Right EJ and Left foot IVs noted and intact. Versed drip at 16mg/hr. Heparin at 16u/kg/hr and D5NS + 20 at 75 cc/hr. No episode of seizure. will continue plan of care.
[2018-07-15 04:55] LABS: BASOPHILS % (AUTO) 0.8 % (0.0-2.0); EOSINOPHILS % (AUTO) 2.1 % (0.0-3.0); HEMATOCRIT 30.3 % (42.0-52.0); HEMOGLOBIN 10.1 G/DL (14.2-18.0); MEAN CORPUSCULAR VOLUME 89 FL (80-99); MONOCYTES % (AUTO) 10.4 % (1.0-10.0); NEUTROPHILS % (AUTO) 71.9 % (45.0-75.0); PLATELET COUNT 128 K/UL (150-450); RED CELL DISTRIBUTION WIDTH 13.3 % (11.6-14.8); WHITE BLOOD COUNT 7.4 K/UL (4.8-10.8)
--- NOTE | 2018-07-15 05:20 | NUR ---
NURSE NOTES: PTT still pending will follow up
[2018-07-15 05:27] LABS: ALANINE AMINOTRANSFERASE 128 U/L (12-78); ALBUMIN 2.3 G/DL (3.4-5.0); ALBUMIN/GLOBULIN RATIO 0.6 (1.0-2.7); ALKALINE PHOSPHATASE 178 U/L (46-116); ANION GAP 9 mmol/L (5-15); ASPARTATE AMINO TRANSFERASE 86 U/L (15-37); BILIRUBIN,TOTAL 0.6 MG/DL (0.2-1.0); BLOOD UREA NITROGEN 7 mg/dL (7-18); CALCIUM 8.4 MG/DL (8.5-10.1); CARBON DIOXIDE 23 MMOL/L (21-32); CHLORIDE 112 MMOL/L (98-107); CREATININE 0.9 MG/DL (0.55-1.30); POTASSIUM 3.9 MMOL/L (3.5-5.1); SODIUM 144 MMOL/L (136-145)
--- NOTE | 2018-07-15 05:56 | NUR ---
NURSE NOTES: PTT result 87 will follow Heparin protocol, timed PTT 07/16 at 0400.
[2018-07-15] MEDS: NovoLOG Insulin Flexpen SUBQ SCH ×5 (06:00→23:21)
--- NOTE | 2018-07-15 07:06 | NUR ---
RESPIRATORY NOTE: Patient received mechanically ventilated on PB 840 with current ordered vent settings. Patient is orally intubated with ETT tube size 7.0 with 23cm at the lip line. There is an ambu bag available at the bedside and the vent is connected to a red outlet. Vent alarms are functional and audible. There are no signs/symptoms of respiratory distress or shortness of breath noted. Will continue to monitor.
--- NOTE | 2018-07-15 07:15 | NUR ---
HAND-OFF: Report given to Gabriela TAMAYO.
--- NOTE | 2018-07-15 07:40 | NUR ---
NURSE NOTES: Received report from RONI Villatoro. Pt is sedated, on versed, RASS -2. Patient is orally intubated ETT size 7.0, 23cm at lip line, vent settings: AC 16, TV 400, FIO2 30%, PEEP 5, O2 sat 100%. No acute distress noted. SR noted on the court recording monitor. Right nare NGT intact, running Glucerna 1.2 at 30ml/hr. HOB kept elevated. Sims cath intact, draining jolly urine by gravity. Right EJ 18G intact, running Heparin drip at 16units/kg/hr and versed at 16mg/hr, and Left foot 20G Intact, running D5NS with 20meq KCl at 75ml/hr. Patient on bilateral soft wrist restraints. No skin breakdown noted, pulses present. Bed in lowest position, locked, side rails upx3. On seizure precaution, Side rails are padded. Bed alarm on. Will continue to monitor. Addendum: 07/15/18 at 1238 by JULIA GARDINER RN vent setting: AC14
[2018-07-15] MEDS: Vancomycin 1gm/D5W 275ml IVPB SCH ×2 (08:06)
[2018-07-15] MEDS: levETIRAcetam 1,000mg/NS100ml IVPB SCH ×2 (08:13→20:13)
[2018-07-15] MEDS: levETIRAcetam 500mg/NS100ml IVPB SCH ×2 (08:14→20:12)
[2018-07-15] MEDS: LORazepam Inj 2mg/ml 1ml IV PRN (08:34)
--- NOTE | 2018-07-15 08:35 | Diagnostic Imaging Report ---
EXAM: XR Chest, 1 View CLINICAL HISTORY: SOB TECHNIQUE: Frontal view of the chest. COMPARISON: Chest x-ray, 07/14/18 808 FINDINGS: Lungs: Mild interstitial prominence. No focal infiltrate or consolidation. Pleural space: Unremarkable. No pneumothorax. Heart: Cardiomegaly. Mediastinum: Unremarkable. Bones/joints: Unremarkable. Tubes, lines and devices: Endotracheal tube and NG tube stable. IMPRESSION: 1. Endotracheal tube and NG tube stable. 2. Stable lungs. Mild interstitial prominence. No focal infiltrate or consolidation.
--- NOTE | 2018-07-15 08:50 | Pulmonolgy Critical Care Note ---
Critical Care - Asmt/Plan Assessment/Plan: ASSESSMENT Acute respiratory failure requiring intubation Acute metabolic encephalopathy Acute DVT RLE bacteriuria, possible UTI COPD Seizure disorder with breakthrough episode ( on admission to [facility]) Hx of traumatic brain injury Diabetes mellitus ? prostate Ca Hypomagnesemia Anemia Transaminitis Hx of CVA PLAN OF CARE ICU heparin gtt per pharmacy venous duplex BLE with acute DVT RLE CF to popliteal veins Vent support, pulmonary toilet f/up p with ABG and chest x-ray optimize settings as needed stable ABG this am empiric abx, sputum cx negative, urine cx + Staph haemolyticus , no UA prior collected, doubt UTI, probably bacteriuria, ID consult this am EEG neuro follows. seizure precaution, continue Keppra IV GI prophylaxis Versed gtt BS management with sliding scale /sensitive of insulin , hemoglobin A1c - 5.6 monitor H&H we will goal to keep hemoglobin above trend LFT, remain elevated hepatitis panel, abdominal US will get PSA in lieu of questionable hx of prostate Ca supportive care case discussed and evaluated by supervising physician Critical Care - Objective Last 24 Hour Vital Signs Date Time Temp Pulse Resp B/P (MAP) Pulse Ox O2 Delivery O2 Flow Rate FiO2 07/15/18 07:01 83 22 30 07/15/18 07:00 78 14 109/62 100 Endotracheal Tube 30 07/15/18 07:00 14 Endotracheal Tube 30 07/15/18 06:30 75 14 100/57 100 Endotracheal Tube 30 07/15/18 06:00 14 Endotracheal Tube 30 07/15/18 06:00 85 14 99/61 100 Endotracheal Tube 30 07/15/18 05:30 87 15 121/66 100 Endotracheal Tube 30 07/15/18 05:00 14 Endotracheal Tube 30 07/15/18 05:00 78 14 111/62 100 Endotracheal Tube 30 07/15/18 04:56 80 14 30 07/15/18 04:55 98.2 07/15/18 04:30 79 14 100/60 100 Endotracheal Tube 30 07/15/18 04:25 14 Endotracheal Tube 30 07/15/18 04:24 14 Endotracheal Tube 30 07/15/18 04:00 Mechanical Ventilator 07/15/18 04:00 30 07/15/18 04:00 14 Endotracheal Tube 30 07/15/18 04:00 98.2 79 14 97/60 100 Mechanical Ventilator 30 07/15/18 04:00 79 07/15/18 03:30 81 14 114/66 100 Mechanical Ventilator 30 07/15/18 03:20 84 16 30 07/15/18 03:00 14 Endotracheal Tube 30 07/15/18 03:00 79 14 91/62 100 Mechanical Ventilator 30 07/15/18 02:30 78 14 101/65 100 Mechanical Ventilator 30 07/15/18 02:01 79 14 92/60 100 Mechanical Ventilator 30 07/15/18 02:00 14 Endotracheal Tube 30 07/15/18 01:30 75 15 30 07/15/18 01:30 80 14 91/58 100 Mechanical Ventilator 30 07/15/18 01:14 14 Endotracheal Tube 30 07/15/18 01:00 14 Endotracheal Tube 30 07/15/18 01:00 75 14 98/66 100 Mechanical Ventilator 30 07/15/18 00:30 83 15 108/65 Mechanical Ventilator 30 07/15/18 00:00 Mechanical Ventilator 07/15/18 00:00 30 07/15/18 00:00 14 Endotracheal Tube 30 07/15/18 00:00 98.2 83 15 108/65 Mechanical Ventilator 30 07/15/18 00:00 83 07/14/18 23:30 81 14 116/68 Mechanical Ventilator 30 07/14/18 23:01 84 14 119/68 Mechanical Ventilator 30 07/14/18 23:00 14 Endotracheal Tube 30 07/14/18 22:57 77 14 30 07/14/18 22:30 82 14 96/56 100 Mechanical Ventilator 30 07/14/18 22:14 14 Endotracheal Tube 30 07/14/18 22:00 80 14 98/60 100 Mechanical Ventilator 30 07/14/18 22:00 14 Endotracheal Tube 30 07/14/18 21:30 87 14 101/58 100 Mechanical Ventilator 30 07/14/18 21:28 92 16 30 07/14/18 21:19 98.2 07/14/18 21:00 14 Endotracheal Tube 30 07/14/18 21:00 94 14 97/57 100 Mechanical Ventilator 30 07/14/18 20:30 97 14 102/60 100 Mechanical Ventilator 30 07/14/18 20:00 30 07/14/18 20:00 14 Endotracheal Tube 30 07/14/18 20:00 89 07/14/18 20:00 Mechanical Ventilator 07/14/18 20:00 94 16 130/62 100 Mechanical Ventilator 30 07/14/18 19:30 98.8 93 17 111/67 100 Mechanical Ventilator 30 07/14/18 19:29 95 16 30 07/14/18 19:00 93 17 101/61 100 Mechanical Ventilator 30 07/14/18 19:00 14 Endotracheal Tube 30 07/14/18 18:15 14 07/14/18 18:00 92 14 106/57 100 Mechanical Ventilator 30 07/14/18 17:00 14 Endotracheal Tube 07/14/18 17:00 93 14 126/73 100 Mechanical Ventilator 30 07/14/18 16:45 89 16 30 07/14/18 16:00 98.2 88 15 117/67 100 Mechanical Ventilator 30 07/14/18 16:00 91 07/14/18 16:00 Mechanical Ventilator 07/14/18 16:00 30 07/14/18 16:00 14 Endotracheal Tube 07/14/18 15:00 89 14 100/63 100 Mechanical Ventilator 30 07/14/18 15:00 16 Endotracheal Tube 07/14/18 14:58 92 16 30 07/14/18 14:49 14 Endotracheal Tube 07/14/18 14:00 97 14 117/70 100 Mechanical Ventilator 30 07/14/18 14:00 16 Endotracheal Tube 07/14/18 13:00 14 Endotracheal Tube 07/14/18 13:00 94 21 152/66 100 Mechanical Ventilator 30 07/14/18 12:49 91 16 30 07/14/18 12:00 Mechanical Ventilator 07/14/18 12:00 98.0 91 16 122/65 100 Mechanical Ventilator 07/14/18 12:00 93 07/14/18 12:00 30 07/14/18 12:00 16 Endotracheal Tube 07/14/18 11:00 82 14 117/68 100 Mechanical Ventilator 30 07/14/18 10:48 88 20 30 07/14/18 10:36 15 Endotracheal Tube 07/14/18 10:00 81 14 117/65 100 Mechanical Ventilator 30 07/14/18 09:12 92 18 30 07/14/18 09:00 97.9 89 14 100/62 100 Mechanical Ventilator 30 Objective: Status: sedated, intubated on Vent 600-14-30% Condition: critical HEENT: atraumatic, normocephalic, OP with ET in place, intact, NGT with TF, secretions scant amount, gonzáles color, thick consistency Lungs: clear Heart: HR/BP stable Abdomen: soft, mild distention, old healed abdominal scars, non-tender, active bowel sounds Extremities: no C/C/E Micro: Microbiology Date/Time Source Procedure Growth Status 07/13/18 04:00 Sputum Gram Stain - Final Complete 07/13/18 04:00 Sputum Sputum Culture - Final NORMAL UPPER RESPIRATORY TAI PRESENT Complete 07/13/18 04:00 Straight Cath Urine Culture - Final Staphylococcus Haemolyticus Complete 07/13/18 04:00 Rectum - Final NO CARBAPENEM-RESISTANT ENTEROBACTERI... Complete 07/13/18 04:00 Rectum VRE Culture - Final NO VANCOMYCIN RESISTANT ENTEROCOCCUS ... Complete Accucheck: 105 Critical Care - Subjective ROS Limited/Unobtainable: Yes Interval Events: sedated, intubated, no signs of resp distress on current vent settings remains afebrile,no leukocytosis, no further seizure activity Condition: critical EKG Rhythm: Sinus Rhythm FI02: 30 Vent Support Breath Rate: 14 Vent Support Mode: AC Vent Tidal Volume: 600 Sputum Amount: Scant PEEP: 5.0 PIP: 31 Fluids: NS+ 20 KCL at 75 Drips: Versed gtt heparin gtt Tube Feeding Amount: 30 I&O: Intake and Output 07/14/18 07/15/18 18:59 06:59 Intake Total 1741.0 ml 2382.74 ml Output Total 600 ml 1685 ml Balance 1141.0 ml 697.74 ml Intake Free Water 100 ml IV Total 1381.0 ml 1922.74 ml Tube Feeding 360 ml 360 ml Output Urine Total 600 ml 1685 ml CXR: CXR 07/15 - 1. Endotracheal tube and NG tube stable. 2. Stable lungs. Mild interstitial prominence. No focal infiltrate or consolidation. ET-Tube: 7.0 ET Position: 23 Sharla Mandujano NP Jul 15, 2018 08:49
[2018-07-15] MEDS ORDERED: Albuterol/Ipratropium 3ml neb HHN PRN (09:00)
--- NOTE | 2018-07-15 10:00 | NUR ---
NURSE NOTES: Patient was turned and repositioned. Patient kept clean and dry.
[2018-07-15] MEDS ORDERED: Tubing IV Secondary IV ONE ×3 (10:11→16:56)
[2018-07-15] MEDS ORDERED: NS 275ml ONE (10:13)
--- NOTE | 2018-07-15 10:59 | Consultation ---
History of Present Illness General Date patient seen: Jul 15, 2018 Reason for Consultation: PNA Present Illness HPI Mr. Porras is a 72 yomnale with PMHx of TBI, Seizure disorder, COPD, Encephalopathy, DM, HTN, CVA, Renal failure, CAD and Dysphagia s/p Peg who was fidencio to the ED on 07/12/18 with intractable seizures. On admission he was intubated and has been on a vent not following. He was afebrile and has had no leukocytosis. His CXR shows some mild interstitial prominence but no infiltrates or consolidations. History was obtained from the chart. ID consulted for PNA PMHx/PSHx TBI Seizure disorder COPD Encephalopathy DM HTN CVA Renal failure CAD Dysphagia s/p Peg SocHx Unable to obtain as patient intubated FamHx Unable to obtain as patient intubated Allergies: Coded Allergies: HALOPERIDOL (Verified Allergy, Mild, [place] really bad, 07/05/16) Makes him irritable. THIORIDAZINE (Verified Allergy, Mild, [place] really bad, 07/05/16) Makes him violent TRAZODONE (Verified Allergy, Mild, [place] really bad, 07/05/16) Too strong; inability to move. Uncoded Allergies: PSYCHOTROPIC MEDICATION (Allergy, Mild, 08/13/14) Medication History Scheduled Buspirone Hcl* (Buspirone Hcl*), 10 MG ORAL TWICE A DAY, (Reported) Buspirone Hcl* (Buspar*), 10 MG ORAL BID, (Reported) Gabapentin* (Neurontin*), 400 MG ORAL THREE TIMES A DAY, (Reported) Heparin Sod (Porcine) (Heparin Sodium*), 5,000 UNITS SUBQ EVERY 12 HOURS, ( Reported) Levetiracetam (Keppra), 1,500 MG ORAL Q12HR, (Reported) Levofloxacin* (Levaquin*), 250 MG ORAL DAILY, (Reported) Lisinopril (Lisinopril*), 20 MG ORAL DAILY, (Reported) Memantine Hcl* (Namenda*), 5 MG ORAL TWICE A DAY, (Reported) Scheduled PRN Acetaminophen* (Tylenol Extra Strength*), 500 MG ORAL Q6H PRN for Mild Pain/ Temp > 100.5, (Reported) Al Hydroxide/mg Hydroxide (Mag-Al Liquid), 30 ML ORAL for gi upset, (Reported) Hydrocodone Bit/Acetaminophen 10-325* ([place] 10-325*), 1 TAB ORAL Q6H PRN for For Pain, (Reported) Lorazepam* (Lorazepam*), 2 MG ORAL Q1HR PRN for seizures, (Reported) Ondansetron* (Zofran*), 4 MG IV Q6H PRN for Nausea & Vomiting, (Reported) Polyethylene Glycol 3350* (Miralax*), 17 GM ORAL DAILY PRN for Constipation, ( Reported) Zolpidem Tartrate* (Ambien*), 5 MG ORAL BEDTIME PRN for Insomnia, (Reported) Patient History Healthcare decision maker Resuscitation status Full Code Advanced Directive on File Review of Systems ROS Narrative Unable to obtain as patient intubated Physical Exam Last 24 Hour Vital Signs Date Time Temp Pulse Resp B/P (MAP) Pulse Ox O2 Delivery O2 Flow Rate FiO2 07/15/18 10:00 78 16 130/82 100 Endotracheal Tube 30 07/15/18 09:30 78 14 105/61 100 Endotracheal Tube 30 07/15/18 09:00 71 14 107/60 100 Endotracheal Tube 30 07/15/18 09:00 14 Endotracheal Tube 30 07/15/18 08:53 78 14 30 07/15/18 08:30 77 20 118/70 100 Endotracheal Tube 30 07/15/18 08:00 30 07/15/18 08:00 14 Endotracheal Tube 30 07/15/18 08:00 Mechanical Ventilator 07/15/18 08:00 98.9 80 15 114/69 100 Endotracheal Tube 30 07/15/18 07:01 83 22 30 07/15/18 07:00 78 14 109/62 100 Endotracheal Tube 30 07/15/18 07:00 14 Endotracheal Tube 30 07/15/18 06:30 75 14 100/57 100 Endotracheal Tube 30 07/15/18 06:00 14 Endotracheal Tube 30 07/15/18 06:00 85 14 99/61 100 Endotracheal Tube 30 07/15/18 05:30 87 15 121/66 100 Endotracheal Tube 30 07/15/18 05:00 14 Endotracheal Tube 30 07/15/18 05:00 78 14 111/62 100 Endotracheal Tube 30 07/15/18 04:56 80 14 30 07/15/18 04:55 98.2 07/15/18 04:30 79 14 100/60 100 Endotracheal Tube 30 07/15/18 04:25 14 Endotracheal Tube 30 07/15/18 04:24 14 Endotracheal Tube 30 07/15/18 04:00 Mechanical Ventilator 07/15/18 04:00 30 07/15/18 04:00 14 Endotracheal Tube 30 07/15/18 04:00 98.2 79 14 97/60 100 Mechanical Ventilator 30 07/15/18 04:00 79 07/15/18 03:30 81 14 114/66 100 Mechanical Ventilator 30 07/15/18 03:20 84 16 30 07/15/18 03:00 14 Endotracheal Tube 30 07/15/18 03:00 79 14 91/62 100 Mechanical Ventilator 30 07/15/18 02:30 78 14 101/65 100 Mechanical Ventilator 30 07/15/18 02:01 79 14 92/60 100 Mechanical Ventilator 30 07/15/18 02:00 14 Endotracheal Tube 30 07/15/18 01:30 75 15 30 07/15/18 01:30 80 14 91/58 100 Mechanical Ventilator 30 07/15/18 01:14 14 Endotracheal Tube 30 07/15/18 01:00 14 Endotracheal Tube 30 07/15/18 01:00 75 14 98/66 100 Mechanical Ventilator 30 07/15/18 00:30 83 15 108/65 Mechanical Ventilator 30 07/15/18 00:00 Mechanical Ventilator 07/15/18 00:00 30 07/15/18 00:00 14 Endotracheal Tube 30 07/15/18 00:00 98.2 83 15 108/65 Mechanical Ventilator 30 07/15/18 00:00 83 07/14/18 23:30 81 14 116/68 Mechanical Ventilator 30 07/14/18 23:01 84 14 119/68 Mechanical Ventilator 30 07/14/18 23:00 14 Endotracheal Tube 30 07/14/18 22:57 77 14 30 07/14/18 22:30 82 14 96/56 100 Mechanical Ventilator 30 07/14/18 22:14 14 Endotracheal Tube 30 07/14/18 22:00 80 14 98/60 100 Mechanical Ventilator 30 07/14/18 22:00 14 Endotracheal Tube 30 07/14/18 21:30 87 14 101/58 100 Mechanical Ventilator 30 07/14/18 21:28 92 16 30 07/14/18 21:19 98.2 07/14/18 21:00 14 Endotracheal Tube 30 07/14/18 21:00 94 14 97/57 100 Mechanical Ventilator 30 07/14/18 20:30 97 14 102/60 100 Mechanical Ventilator 30 07/14/18 20:00 30 07/14/18 20:00 14 Endotracheal Tube 30 07/14/18 20:00 89 07/14/18 20:00 Mechanical Ventilator 07/14/18 20:00 94 16 130/62 100 Mechanical Ventilator 30 07/14/18 19:30 98.8 93 17 111/67 100 Mechanical Ventilator 30 07/14/18 19:29 95 16 30 07/14/18 19:00 93 17 101/61 100 Mechanical Ventilator 30 07/14/18 19:00 14 Endotracheal Tube 30 07/14/18 18:15 14 07/14/18 18:00 92 14 106/57 100 Mechanical Ventilator 30 07/14/18 17:00 14 Endotracheal Tube 07/14/18 17:00 93 14 126/73 100 Mechanical Ventilator 30 07/14/18 16:45 89 16 30 07/14/18 16:00 98.2 88 15 117/67 100 Mechanical Ventilator 30 07/14/18 16:00 91 07/14/18 16:00 Mechanical Ventilator 07/14/18 16:00 30 07/14/18 16:00 14 Endotracheal Tube 07/14/18 15:00 89 14 100/63 100 Mechanical Ventilator 30 07/14/18 15:00 16 Endotracheal Tube 07/14/18 14:58 92 16 30 07/14/18 14:49 14 Endotracheal Tube 07/14/18 14:00 97 14 117/70 100 Mechanical Ventilator 30 07/14/18 14:00 16 Endotracheal Tube 07/14/18 13:00 14 Endotracheal Tube 07/14/18 13:00 94 21 152/66 100 Mechanical Ventilator 30 07/14/18 12:49 91 16 30 07/14/18 12:00 Mechanical Ventilator 07/14/18 12:00 98.0 91 16 122/65 100 Mechanical Ventilator 30 07/14/18 12:00 93 07/14/18 12:00 30 07/14/18 12:00 16 Endotracheal Tube 07/14/18 11:00 82 14 117/68 100 Mechanical Ventilator 30 Intake and Output 07/14/18 07/15/18 18:59 06:59 Intake Total 1741.0 ml 2382.74 ml Output Total 600 ml 1685 ml Balance 1141.0 ml 697.74 ml Intake Free Water 100 ml IV Total 1381.0 ml 1922.74 ml Tube Feeding 360 ml 360 ml Output Urine Total 600 ml 1685 ml Laboratory Tests Test 07/15/18 04:45 07/15/18 07:58 White Blood Count 7.4 K/UL (4.8-10.8) Red Blood Count 3.40 M/UL (4.70-6.10) L Hemoglobin 10.1 G/DL (14.2-18.0) L Hematocrit 30.3 % (42.0-52.0) L Mean Corpuscular Volume 89 FL (80-99) Mean Corpuscular Hemoglobin 29.8 PG (27.0-31.0) Mean Corpuscular Hemoglobin Concent 33.4 G/DL (32.0-36.0) Red Cell Distribution Width 13.3 % (11.6-14.8) Platelet Count 128 K/UL (150-450) L Mean Platelet Volume 6.8 FL (6.5-10.1) Neutrophils (%) (Auto) 71.9 % (45.0-75.0) Lymphocytes (%) (Auto) 15.0 % (20.0-45.0) L Monocytes (%) (Auto) 10.4 % (1.0-10.0) H Eosinophils (%) (Auto) 2.1 % (0.0-3.0) Basophils (%) (Auto) 0.8 % (0.0-2.0) Activated Partial Thromboplast Time 87 SEC (23-33) H Sodium Level 144 MMOL/L (136-145) Potassium Level 3.9 MMOL/L (3.5-5.1) Chloride Level 112 MMOL/L (98-107) H Carbon Dioxide Level 23 MMOL/L (21-32) Anion Gap 9 mmol/L (5-15) Blood Urea Nitrogen 7 mg/dL (7-18) Creatinine 0.9 MG/DL (0.55-1.30) Estimat Glomerular Filtration Rate mL/min (>60) Glucose Level 115 MG/DL (74-106) H Calcium Level 8.4 MG/DL (8.5-10.1) L Total Bilirubin 0.6 MG/DL (0.2-1.0) Aspartate Amino Transf (AST/SGOT) 86 U/L (15-37) H Alanine Aminotransferase (ALT/SGPT) 128 U/L (12-78) H Alkaline Phosphatase 178 U/L (46-116) H Total Protein 6.0 G/DL (6.4-8.2) L Albumin 2.3 G/DL (3.4-5.0) L Globulin 3.7 g/dL Albumin/Globulin Ratio 0.6 (1.0-2.7) L Arterial Blood pH 7.486 (7.350-7.450) Arterial Blood Partial Pressure CO2 28.1 mmHg (35.0-45.0) L Arterial Blood Partial Pressure O2 137.5 mmHg (75.0-100.0) H Arterial Blood HCO3 20.7 mmol/L (22.0-26.0) L Arterial Blood Oxygen Saturation 98.4 % (95-100) Arterial Blood Base Excess -1.7 (-2-2) Sudhakar Test Positive Height (Feet): 6 Weight (Pounds): 175 Medications Current Medications Medications (Trade) Dose Ordered Sig/Jesi Route PRN Reason Start Time Stop Time Status Last Admin Dose Admin Albuterol/ Ipratropium (Albuterol/ Ipratropium) 3 ml Q4H PRN HHN sob 07/15/18 09:00 07/20/18 08:59 Chlorhexidine Gluconate (Candie-Hex 2%) 1 applic DAILY@2000 TOPIC 07/14/18 20:00 08/13/18 19:59 Dextrose (Dextrose 50%) 25 ml Q30M PRN IV Hypoglycemia 07/13/18 01:15 08/12/18 01:14 Dextrose (Dextrose 50%) 50 ml Q30M PRN IV Hypoglycemia 07/13/18 01:15 08/12/18 01:14 Famotidine (Pepcid I.v.) 20 mg Q12HR IVP 07/13/18 09:00 08/12/18 08:59 07/15/18 08:12 Heparin Sodium/ Dextrose 500 ml @ 25.7 mls/hr ADJUST PER PROTOCOL IV 07/13/18 19:30 08/12/18 19:29 07/15/18 01:20 Insulin Aspart (NovoLOG) EVERY 6 HOURS SUBQ 07/14/18 00:00 08/12/18 12:29 Levetiracetam 100 ml @ 400 mls/hr Q12H IVPB 07/14/18 21:15 08/13/18 21:14 07/15/18 08:14 Levetiracetam 100 ml @ 400 mls/hr Q12HR IVPB 07/14/18 21:00 08/13/18 20:59 07/15/18 08:13 Lorazepam (Ativan 2mg/ml 1ml) 2 mg Q4H PRN IV For Anxiety 07/13/18 11:45 07/20/18 11:44 07/15/18 08:34 Midazolam HCl 100 ml @ 0 mls/hr Q24H PRN IV Agitation 07/13/18 19:15 07/20/18 19:14 07/15/18 09:00 Morphine Sulfate (Morphine Sulfate) 4 mg Q4H PRN IVP For Pain 07/13/18 12:00 07/20/18 11:59 07/14/18 20:49 Piperacillin Sod/ Tazobactam Sod 3.375 gm/Sodium Chloride 110 ml @ 27.5 mls/hr Q8H IVPB 07/14/18 16:00 07/21/18 15:59 07/15/18 08:14 Potassium Chloride/Sodium Chloride 1,000 ml @ 75 mls/hr [id number] IV 07/13/18 02:00 08/12/18 01:59 07/15/18 01:15 Valproate Sodium 1000 mg/Dextrose 65 ml @ 32.5 mls/hr Q12HR@0100,1300 IV 07/14/18 13:00 08/13/18 12:59 07/15/18 00:49 Vancomycin HCl (Vanco rx to dose) 1 ea DAILY PRN MISC Per rx protocol 07/14/18 14:15 08/13/18 14:14 Vancomycin HCl 1 gm/Dextrose 275 ml @ 183.708 mls/hr Q12HR@0700,1900 IVPB 07/14/18 19:00 07/19/18 18:59 07/15/18 08:06 Objective Narrative Gen: NAD, Intuabted on vent HEENT: DMM, PERRL, No Oral lesion, no scleral icterus NECK: supple, No LAD, No JVD LUNGS: CTAB, No W/C CARDS: RRR, S1, S2, No M/R/G, ABD: Soft, NT, ND, No R/G, + BS, No HSM, No Masses : Deferred Ext: C/C/E, Pulses 2+ B/L (DP, Rad): NEURO: Intubated on vent SKIN: Warm/dry, No rashes Assessment/Plan Diagnosis [place] I: 72 yo male with PMHx of TBI, Seizure disorder, COPD, Encephalopathy, DM, HTN, CVA, Renal failure, CAD and Dysphagia s/p Peg who was brought to the ED on with intractable seizures. Respiratory failure Most probably due to seizures Active PNA unlikely Sputum Cx 07/12/18 - NF Bacteriuria UTI unlikely UCx - Staph h. S/P 2 days Vancomycin DVT right leg On Heparin TBI Seizure disorder COPD Encephalopathy DM HTN CVA Renal failure CAD Dysphagia s/p Peg PLAN - Monitor off abx 07/15/18 S/P Vancomcyin and Zosyn #2 - Supportive care - Monitor CBC and Temps Thank you for this consult. We will continue to follow the patient during this hospitalization. Matteo Hunt MD Jul 15, 2018 10:59
--- NOTE | 2018-07-15 12:00 | NUR ---
NURSE NOTES: Suctioned, moderate white secretion noted. Oral care and hunter care provided. Patient tolerating tube feeding, no residual. HOB kept elevated.
--- NOTE | 2018-07-15 12:30 | NUR ---
NURSE NOTES: Pt tried to remove ETT, reinforced the restraints, no skin breakdown noted. IV versed bag was changed.
--- NOTE | 2018-07-15 14:30 | NUR ---
NURSE NOTES: Patient is resting in bed comfortably. No acute distress noted. VSS, afebrile. patient is sedated, on versed, RASS -2. Will continue to monitor.
--- NOTE | 2018-07-15 14:45 | Internal Med Progress Note ---
Subjective Date of Service: Jul 15, 2018 Physician Name Rojo,Michael Attending Physician Will Mejía MD Current Medications Medications (Trade) Dose Ordered Sig/Jesi Route PRN Reason Start Time Stop Time Status Last Admin Dose Admin Albuterol/ Ipratropium (Albuterol/ Ipratropium) 3 ml Q4H PRN HHN sob 07/15/18 09:00 07/20/18 08:59 Chlorhexidine Gluconate (Candie-Hex 2%) 1 applic DAILY@2000 TOPIC 07/14/18 20:00 08/13/18 19:59 Dextrose (Dextrose 50%) 25 ml Q30M PRN IV Hypoglycemia 07/13/18 01:15 08/12/18 01:14 Dextrose (Dextrose 50%) 50 ml Q30M PRN IV Hypoglycemia 07/13/18 01:15 08/12/18 01:14 Famotidine (Pepcid I.v.) 20 mg Q12HR IVP 07/13/18 09:00 08/12/18 08:59 07/15/18 08:12 Heparin Sodium/ Dextrose 500 ml @ 25.7 mls/hr ADJUST PER PROTOCOL IV 07/13/18 19:30 08/12/18 19:29 07/15/18 01:20 Insulin Aspart (NovoLOG) EVERY 6 HOURS SUBQ 07/14/18 00:00 08/12/18 12:29 Levetiracetam 100 ml @ 400 mls/hr Q12H IVPB 07/14/18 21:15 08/13/18 21:14 07/15/18 08:14 Levetiracetam 100 ml @ 400 mls/hr Q12HR IVPB 07/14/18 21:00 08/13/18 20:59 07/15/18 08:13 Lorazepam (Ativan 2mg/ml 1ml) 2 mg Q4H PRN IV For Anxiety 07/13/18 11:45 07/20/18 11:44 07/15/18 08:34 Midazolam HCl 100 ml @ 0 mls/hr Q24H PRN IV Agitation 07/13/18 19:15 07/20/18 19:14 07/15/18 12:20 Morphine Sulfate (Morphine Sulfate) 4 mg Q4H PRN IVP For Pain 07/13/18 12:00 07/20/18 11:59 07/14/18 20:49 Potassium Chloride/Sodium Chloride 1,000 ml @ 75 mls/hr [id number] IV 07/13/18 02:00 08/12/18 01:59 07/15/18 01:15 Valproate Sodium 1000 mg/Dextrose 65 ml @ 32.5 mls/hr Q12HR@0100,1300 IV 07/14/18 13:00 08/13/18 12:59 07/15/18 12:21 Allergies: Coded Allergies: HALOPERIDOL (Verified Allergy, Mild, [place] really bad, 07/05/16) Makes him irritable. THIORIDAZINE (Verified Allergy, Mild, [place] really bad, 07/05/16) Makes him violent TRAZODONE (Verified Allergy, Mild, [place] really bad, 07/05/16) Too strong; inability to move. Uncoded Allergies: PSYCHOTROPIC MEDICATION (Allergy, Mild, 08/13/14) ROS Limited/Unobtainable: Yes Subjective 72 YO M admitted with breakthrough seizure. Now respiratory failure. Intubated and sedated. Cover for Int Med-Dr Mejía. ICU Objective Last Vital Signs Date Time Temp Pulse Resp B/P (MAP) Pulse Ox O2 Delivery O2 Flow Rate FiO2 07/15/18 14:00 14 Mechanical Ventilator 30 07/15/18 14:00 76 93/56 100 07/15/18 12:00 98.6 Laboratory Tests Test 07/15/18 04:45 07/15/18 07:58 White Blood Count 7.4 K/UL (4.8-10.8) Red Blood Count 3.40 M/UL (4.70-6.10) L Hemoglobin 10.1 G/DL (14.2-18.0) L Hematocrit 30.3 % (42.0-52.0) L Mean Corpuscular Volume 89 FL (80-99) Mean Corpuscular Hemoglobin 29.8 PG (27.0-31.0) Mean Corpuscular Hemoglobin Concent 33.4 G/DL (32.0-36.0) Red Cell Distribution Width 13.3 % (11.6-14.8) Platelet Count 128 K/UL (150-450) L Mean Platelet Volume 6.8 FL (6.5-10.1) Neutrophils (%) (Auto) 71.9 % (45.0-75.0) Lymphocytes (%) (Auto) 15.0 % (20.0-45.0) L Monocytes (%) (Auto) 10.4 % (1.0-10.0) H Eosinophils (%) (Auto) 2.1 % (0.0-3.0) Basophils (%) (Auto) 0.8 % (0.0-2.0) Activated Partial Thromboplast Time 87 SEC (23-33) H Sodium Level 144 MMOL/L (136-145) Potassium Level 3.9 MMOL/L (3.5-5.1) Chloride Level 112 MMOL/L (98-107) H Carbon Dioxide Level 23 MMOL/L (21-32) Anion Gap 9 mmol/L (5-15) Blood Urea Nitrogen 7 mg/dL (7-18) Creatinine 0.9 MG/DL (0.55-1.30) Estimat Glomerular Filtration Rate mL/min (>60) Glucose Level 115 MG/DL (74-106) H Calcium Level 8.4 MG/DL (8.5-10.1) L Total Bilirubin 0.6 MG/DL (0.2-1.0) Aspartate Amino Transf (AST/SGOT) 86 U/L (15-37) H Alanine Aminotransferase (ALT/SGPT) 128 U/L (12-78) H Alkaline Phosphatase 178 U/L (46-116) H Total Protein 6.0 G/DL (6.4-8.2) L Albumin 2.3 G/DL (3.4-5.0) L Globulin 3.7 g/dL Albumin/Globulin Ratio 0.6 (1.0-2.7) L Arterial Blood pH 7.486 (7.350-7.450) Arterial Blood Partial Pressure CO2 28.1 mmHg (35.0-45.0) L Arterial Blood Partial Pressure O2 137.5 mmHg (75.0-100.0) H Arterial Blood HCO3 20.7 mmol/L (22.0-26.0) L Arterial Blood Oxygen Saturation 98.4 % (95-100) Arterial Blood Base Excess -1.7 (-2-2) Sudhakar Test Positive Microbiology Date/Time Source Procedure Growth Status 07/13/18 04:00 Nasal Nares MRSA Culture - Final NO METHICILLIN RESISTANT STAPH AUREUS... Complete 07/13/18 04:00 Sputum Gram Stain - Final Complete 07/13/18 04:00 Sputum Sputum Culture - Final NORMAL UPPER RESPIRATORY TAI PRESENT Complete 07/13/18 04:00 Straight Cath Urine Culture - Final Staphylococcus Haemolyticus Complete 07/13/18 04:00 Rectum - Final NO CARBAPENEM-RESISTANT ENTEROBACTERI... Complete 07/13/18 04:00 Rectum VRE Culture - Final NO VANCOMYCIN RESISTANT ENTEROCOCCUS ... Complete Intake and Output 07/14/18 07/15/18 19:00 07:00 Intake Total 1873.7 ml 2382.74 ml Output Total 680 ml 1735 ml Balance 1193.7 ml 647.74 ml Intake Free Water 100 ml IV Total 1513.7 ml 1922.74 ml Tube Feeding 360 ml 360 ml Output Urine Total 680 ml 1735 ml Objective PHYSICAL EXAMINATION: GENERAL: The patient is a thin-appearing male, in no apparent distress. The patient is intubated and sedated. HEENT: Eyes, pupils are equal and responsive to light and accommodation. Extraocular movements are intact. NECK: Supple. No lymphadenopathy. CHEST: Mech vent; Few expiratory wheezes bilaterally. Otherwise, without crackles or rales. CARDIOVASCULAR: Tachycardic, regular rate. S1 and S2 are normal without murmurs, rubs, or gallops. ABDOMEN: Soft, nontender, and nondistended. Positive bowel sounds. No evidence of hepatosplenomegaly. Currently, no rebound or guarding noted. EXTREMITIES: Negative for clubbing, cyanosis, or edema. RECTAL/GENITAL: Not performed. NEUROLOGICALLY: Unable to assess secondary to the patient's mental status. Assessment/Plan Assessment/Plan ASSESSMENT: This is a 72-year-old male. 1. Intractable seizures. 2. Respiratory failure. 3. Probable pneumonia of the right upper lobe. 4. History of seizure disorder. 5. Chronic obstructive pulmonary disease. 6. Diabetes type 2. 7. Hypertension. 8. Metabolic encephalopathy. 9. Chronic obstructive pulmonary disease. 10. Chronic renal failure. 11. Traumatic brain injury. 12. Gastroesophageal reflux disease. 13. Coronary artery disease. 14. Anemia. 15. History of gastrointestinal hemorrhage. 16. Hypercholesteremia. 17. Cerebrovascular disease, status post cerebrovascular accident. 18. Dysphagia. 19. Prostate cancer with mets 20. UTI=staph haemolyticus TREATMENT: 1. Intractable seizure. A Neurology consultation has been obtained. The patient has been started on Ativan intravenously. We will follow recommendations of Neurology. Continue Keppra, Dilantin, and Depakote as above. 2. Respiratory failure. Pulmonary consultation has been obtained with Dr. Maria E Shine. The patient is currently intubated in the intensive care unit. We will follow recommendations of Pulmonary. 3. Chronic obstructive pulmonary disease. As above, a Pulmonary consultation has been obtained with Dr. Maria E Shine. 4. Diabetes type 2. The patient has been placed on a NovoLog sliding scale. 5. Hypertension. The patient is currently hypotensive. 6. Metabolic encephalopathy. 7. Renal failure. 8. Traumatic brain injury. 9. Gastroesophageal reflux disease. 10. Coronary artery disease. 11. Anemia. 12. Gastrointestinal hemorrhage. 13. Hypercholesterolemia. 14. Cerebrovascular disease. 15. Dysphagia, status post PEG placement. 16. D/C vanco for staph UTI; D/C zosyn for peumonia-await urine and sputum cultures 17. ID consult=Michael Land MD Jul 15, 2018 14:45
--- NOTE | 2018-07-15 16:50 | NUR ---
NURSE NOTES: Patient was turned and repositioned. No seizure activity during this shift. Patient was kept clean and dry. VSS. Sims draining light jolly urine. Heparin drip running at 16unit/kg/hr. No active bleeding noted.
--- NOTE | 2018-07-15 19:00 | NUR ---
NURSE NOTES: Received report from RONI Morrow. Pt is sedated, on versed, RASS -2. Patient is orally intubated ETT size 7.0, 23cm at lip line, vent settings: AC 14, TV 400, FIO2 30%, PEEP 5, O2 sat 100%. No acute distress noted. SR noted on the surveillance system monitor. Right nare NGT intact, running Glucerna 1.2 at 30ml/hr. HOB kept elevated. Sims cath intact, draining jolly urine by gravity. Right EJ 18G intact, running Heparin drip at 16units/kg/hr and versed at 16mg/hr, and Left foot 20G Intact, running D5NS with 20meq KCl at 75ml/hr. Patient on bilateral soft wrist restraints. No skin breakdown noted, pulses present. Bed in lowest position, locked, side rails upx3. On seizure precaution, Side rails are padded. Bed alarm on. Will continue to monitor.
--- NOTE | 2018-07-15 19:05 | NUR ---
HAND-OFF: Report given to RONI Meza.
--- NOTE | 2018-07-15 20:00 | NUR ---
NURSE NOTES: Patient repositioned and given oral care. BP remains stable, HR at SR, afebrile. Patient is calm and collective at this time.
[2018-07-15] MEDS: Morphine Sulfate 4mg/ml Inj (IV USE ONLY) IVP PRN (20:12)
[2018-07-15] MEDS: Dyna-Hex 2% Top Sol 2oz TOPIC SCH (20:13)
--- NOTE | 2018-07-15 21:18 | Diagnostic Imaging Report ---
APPROVED REPORT CPT Code: 61383 Present Symptoms Shortness of breath RIGHT LEG: Venous imaging reveals acute thrombus in the common femoral to popliteal veins. Large collateral vein noted anterior to the superficial femoral artery. Remainder of the deep venous system within normal limits. No evidence of thrombus in the calf veins. Greater saphenous vein also within normal limits. LEFT LEG: Venous imaging reveals a patent deep venous system. There is no evidence of thrombus within the femoral, popliteal or tibial segments. Doppler indicates normal spontaneous flow within these segments. RONI Lucia was notified of abnormal results at 1200 hours.
--- NOTE | 2018-07-15 22:00 | NUR ---
NURSE NOTES: Patient repositioned. NAD at this time. BP remains stable and HR remains stable at this time. Patient has alot of oral secretions. Oral suctioning around the clock and PRN. Patient is slightly awake, still able to follow simple commands but sedated at the same time. IV lines remain working, asymptomatic. Will continue to monitor.
[2018-07-16] VITALS (29 sets, daily range): BP systolic 112–161; BP diastolic 62–101
--- NOTE | 2018-07-16 | Neurology Progress Note ---
Interim History Interim History ROS Limited/Unobtainable: Yes Complaints: AMS Events: Remains intubated in ICU Interim History This visit was performed on July 14, [address] Abad Iniguez. Review of Systems Neuro Review of Systems More alert today on exam but still not following commands. KAT x 4 spontaneously - need for increased stimuli on right side of body - possible sensory deficit. Seizures also noted by staff today - could not describe activity specifically but rhythmic motions were observed . Objective Physical Exam Last Vital Signs Date Time Temp Pulse Resp B/P (MAP) Pulse Ox O2 Delivery O2 Flow Rate FiO2 07/15/18 23:00 80 15 141/81 100 Mechanical Ventilator 30 07/15/18 20:00 99.5 Laboratory Tests Test 07/15/18 04:45 07/15/18 07:58 White Blood Count 7.4 K/UL (4.8-10.8) Red Blood Count 3.40 M/UL (4.70-6.10) L Hemoglobin 10.1 G/DL (14.2-18.0) L Hematocrit 30.3 % (42.0-52.0) L Mean Corpuscular Volume 89 FL (80-99) Mean Corpuscular Hemoglobin 29.8 PG (27.0-31.0) Mean Corpuscular Hemoglobin Concent 33.4 G/DL (32.0-36.0) Red Cell Distribution Width 13.3 % (11.6-14.8) Platelet Count 128 K/UL (150-450) L Mean Platelet Volume 6.8 FL (6.5-10.1) Neutrophils (%) (Auto) 71.9 % (45.0-75.0) Lymphocytes (%) (Auto) 15.0 % (20.0-45.0) L Monocytes (%) (Auto) 10.4 % (1.0-10.0) H Eosinophils (%) (Auto) 2.1 % (0.0-3.0) Basophils (%) (Auto) 0.8 % (0.0-2.0) Activated Partial Thromboplast Time 87 SEC (23-33) H Sodium Level 144 MMOL/L (136-145) Potassium Level 3.9 MMOL/L (3.5-5.1) Chloride Level 112 MMOL/L (98-107) H Carbon Dioxide Level 23 MMOL/L (21-32) Anion Gap 9 mmol/L (5-15) Blood Urea Nitrogen 7 mg/dL (7-18) Creatinine 0.9 MG/DL (0.55-1.30) Estimat Glomerular Filtration Rate mL/min (>60) Glucose Level 115 MG/DL (74-106) H Calcium Level 8.4 MG/DL (8.5-10.1) L Total Bilirubin 0.6 MG/DL (0.2-1.0) Aspartate Amino Transf (AST/SGOT) 86 U/L (15-37) H Alanine Aminotransferase (ALT/SGPT) 128 U/L (12-78) H Alkaline Phosphatase 178 U/L (46-116) H Total Protein 6.0 G/DL (6.4-8.2) L Albumin 2.3 G/DL (3.4-5.0) L Globulin 3.7 g/dL Albumin/Globulin Ratio 0.6 (1.0-2.7) L Arterial Blood pH 7.486 (7.350-7.450) Arterial Blood Partial Pressure CO2 28.1 mmHg (35.0-45.0) L Arterial Blood Partial Pressure O2 137.5 mmHg (75.0-100.0) H Arterial Blood HCO3 20.7 mmol/L (22.0-26.0) L Arterial Blood Oxygen Saturation 98.4 % (95-100) Arterial Blood Base Excess -1.7 (-2-2) Sudhakar Test Positive General: well developed, well nourished Head: normocophalic Neck: no rigidity EENT: benign Neurologic Exam Mental Status: other Speech: other Language: other Cranial Nerve II: fundus normal, visual dodd, no papilledema Cranial Nerves III, IV, : EOMI Cranial Nerve V: other Cranial Nerve VII: no facial asymmetry Cranial Nerve VIII: no nystagmus Cranial Nerve IX: gag response Cranial Nerve XI: other Cranial Nerve XII: other Motor System: normal muscle tone, no involuntary movement, no muscle wasting Sensory: other Coordination: other Deep Tendon Reflexes: 0 bicep (R), 0 tricep (R), 0 knee (R), 0 ankle (R); 1+ bicep (L), 1+ tricep (L), 1+ brachioradialis (L), 1+ knee (L), 1+ ankle (L) Reflexes: flexor plantar (L), flexor plantar (R); extensor plantar (L), extensor plantar (R) Objective Patient is intubated and does not open eyes to voice - he KAT x4 spontaneously - does not follow commands - W/D to noxious stimuli x 4- Pupils are briskly reactive and PERRL - His exam is non focal Impression/Recommendations Problems: (1) Acute metabolic encephalopathy (2) Acute encephalopathy (3) Drug abuse (4) COPD (chronic obstructive pulmonary disease) (5) Diabetes mellitus (6) Anemia (7) Acute respiratory failure (8) Seizure disorder (9) UTI (urinary tract infection) (10) Prostate cancer, primary, 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 site (11) Iron deficiency anemia (12) Acute renal failure (ARF) Status: stable Recommendations Abx as per ID EEG Done today Valproate 1000mg BID added to regimen for seizure control May continue with Ativan 1mg as eeded for seizure Kenia Pompa N.P. Jul 16, 2018 00:00
--- NOTE | 2018-07-16 | NUR ---
NURSE NOTES: Patient remains a bit agitated at times. increased sedation a bit to achieve RASS -2. Patient BP and HR remains stable. No fevers. Maintenance fluids ongoing. No new changes other than being restless and agitated at times. Oral care performed and repositioned to comfort. Will continue to monitor.
--- NOTE | 2018-07-16 | Neurology Progress Note ---
Interim History Interim History ROS Limited/Unobtainable: Yes Complaints: AMS Events: Remains intubated in ICU Interim History This visit was performed on July 15, 2018 with Abad Iniguez MD Objective Physical Exam Last Vital Signs Date Time Temp Pulse Resp B/P (MAP) Pulse Ox O2 Delivery O2 Flow Rate FiO2 07/15/18 23:00 80 15 141/81 100 Mechanical Ventilator 30 07/15/18 20:00 99.5 Laboratory Tests Test 07/15/18 04:45 07/15/18 07:58 White Blood Count 7.4 K/UL (4.8-10.8) Red Blood Count 3.40 M/UL (4.70-6.10) L Hemoglobin 10.1 G/DL (14.2-18.0) L Hematocrit 30.3 % (42.0-52.0) L Mean Corpuscular Volume 89 FL (80-99) Mean Corpuscular Hemoglobin 29.8 PG (27.0-31.0) Mean Corpuscular Hemoglobin Concent 33.4 G/DL (32.0-36.0) Red Cell Distribution Width 13.3 % (11.6-14.8) Platelet Count 128 K/UL (150-450) L Mean Platelet Volume 6.8 FL (6.5-10.1) Neutrophils (%) (Auto) 71.9 % (45.0-75.0) Lymphocytes (%) (Auto) 15.0 % (20.0-45.0) L Monocytes (%) (Auto) 10.4 % (1.0-10.0) H Eosinophils (%) (Auto) 2.1 % (0.0-3.0) Basophils (%) (Auto) 0.8 % (0.0-2.0) Activated Partial Thromboplast Time 87 SEC (23-33) H Sodium Level 144 MMOL/L (136-145) Potassium Level 3.9 MMOL/L (3.5-5.1) Chloride Level 112 MMOL/L (98-107) H Carbon Dioxide Level 23 MMOL/L (21-32) Anion Gap 9 mmol/L (5-15) Blood Urea Nitrogen 7 mg/dL (7-18) Creatinine 0.9 MG/DL (0.55-1.30) Estimat Glomerular Filtration Rate mL/min (>60) Glucose Level 115 MG/DL (74-106) H Calcium Level 8.4 MG/DL (8.5-10.1) L Total Bilirubin 0.6 MG/DL (0.2-1.0) Aspartate Amino Transf (AST/SGOT) 86 U/L (15-37) H Alanine Aminotransferase (ALT/SGPT) 128 U/L (12-78) H Alkaline Phosphatase 178 U/L (46-116) H Total Protein 6.0 G/DL (6.4-8.2) L Albumin 2.3 G/DL (3.4-5.0) L Globulin 3.7 g/dL Albumin/Globulin Ratio 0.6 (1.0-2.7) L Arterial Blood pH 7.486 (7.350-7.450) Arterial Blood Partial Pressure CO2 28.1 mmHg (35.0-45.0) L Arterial Blood Partial Pressure O2 137.5 mmHg (75.0-100.0) H Arterial Blood HCO3 20.7 mmol/L (22.0-26.0) L Arterial Blood Oxygen Saturation 98.4 % (95-100) Arterial Blood Base Excess -1.7 (-2-2) Sudhakar Test Positive Kenia Pompa N.PKar Jul 16, 2018 00:00
--- NOTE | 2018-07-16 00:01 | Neurology Progress Note ---
Interim History Interim History ROS Limited/Unobtainable: Yes Complaints: AMS Events: Remains intubated in ICU Interim History This visit was performed on July 16, [address] Abad Iniguez. Objective Physical Exam Last Vital Signs Date Time Temp Pulse Resp B/P (MAP) Pulse Ox O2 Delivery O2 Flow Rate FiO2 07/15/18 23:00 80 15 141/81 100 Mechanical Ventilator 30 07/15/18 20:00 99.5 Laboratory Tests Test 07/15/18 04:45 07/15/18 07:58 White Blood Count 7.4 K/UL (4.8-10.8) Red Blood Count 3.40 M/UL (4.70-6.10) L Hemoglobin 10.1 G/DL (14.2-18.0) L Hematocrit 30.3 % (42.0-52.0) L Mean Corpuscular Volume 89 FL (80-99) Mean Corpuscular Hemoglobin 29.8 PG (27.0-31.0) Mean Corpuscular Hemoglobin Concent 33.4 G/DL (32.0-36.0) Red Cell Distribution Width 13.3 % (11.6-14.8) Platelet Count 128 K/UL (150-450) L Mean Platelet Volume 6.8 FL (6.5-10.1) Neutrophils (%) (Auto) 71.9 % (45.0-75.0) Lymphocytes (%) (Auto) 15.0 % (20.0-45.0) L Monocytes (%) (Auto) 10.4 % (1.0-10.0) H Eosinophils (%) (Auto) 2.1 % (0.0-3.0) Basophils (%) (Auto) 0.8 % (0.0-2.0) Activated Partial Thromboplast Time 87 SEC (23-33) H Sodium Level 144 MMOL/L (136-145) Potassium Level 3.9 MMOL/L (3.5-5.1) Chloride Level 112 MMOL/L (98-107) H Carbon Dioxide Level 23 MMOL/L (21-32) Anion Gap 9 mmol/L (5-15) Blood Urea Nitrogen 7 mg/dL (7-18) Creatinine 0.9 MG/DL (0.55-1.30) Estimat Glomerular Filtration Rate mL/min (>60) Glucose Level 115 MG/DL (74-106) H Calcium Level 8.4 MG/DL (8.5-10.1) L Total Bilirubin 0.6 MG/DL (0.2-1.0) Aspartate Amino Transf (AST/SGOT) 86 U/L (15-37) H Alanine Aminotransferase (ALT/SGPT) 128 U/L (12-78) H Alkaline Phosphatase 178 U/L (46-116) H Total Protein 6.0 G/DL (6.4-8.2) L Albumin 2.3 G/DL (3.4-5.0) L Globulin 3.7 g/dL Albumin/Globulin Ratio 0.6 (1.0-2.7) L Arterial Blood pH 7.486 (7.350-7.450) Arterial Blood Partial Pressure CO2 28.1 mmHg (35.0-45.0) L Arterial Blood Partial Pressure O2 137.5 mmHg (75.0-100.0) H Arterial Blood HCO3 20.7 mmol/L (22.0-26.0) L Arterial Blood Oxygen Saturation 98.4 % (95-100) Arterial Blood Base Excess -1.7 (-2-2) Sudhakar Test Positive Kenia Pompa N.Patric Jul 16, 2018 00:01
[2018-07-16] MEDS: Versed 50mg/D5W 100ml 100 ML IV PRN ×3 (01:17→10:03)
[2018-07-16] MEDS: Valproate Sodium INJ 1,000 MG in D5W 55 ML IV SCH ×2 (01:17→13:21)
[2018-07-16] MEDS: Morphine Sulfate 4mg/ml Inj (IV USE ONLY) IVP PRN ×3 (01:18→18:12)
[2018-07-16] MEDS: LORazepam Inj 2mg/ml 1ml IV PRN ×2 (01:22→18:12)
--- NOTE | 2018-07-16 02:00 | NUR ---
NURSE NOTES: hung new Versed bag, patient remains stable at this time, no acute changes. lots of oral secretions suctioned. Oral care performed.
--- NOTE | 2018-07-16 04:00 | NUR ---
NURSE NOTES: PTT 90, repeat next PTT 07/17/18 @ 7916
--- NOTE | 2018-07-16 04:00 | NUR ---
NURSE NOTES: Patient repositioned and given oral care. Patient given bed bath and suctioned. No acute distress at this time. PTT was drawn and sent to lab. BP and HR stable, no fevers.
[2018-07-16 04:52] LABS: BASOPHILS % (AUTO) 0.6 % (0.0-2.0); EOSINOPHILS % (AUTO) 2.5 % (0.0-3.0); HEMATOCRIT 31.5 % (42.0-52.0); HEMOGLOBIN 10.4 G/DL (14.2-18.0); LYMPHOCYTES % (AUTO) 17.9 % (20.0-45.0); MEAN CORPUSCULAR VOLUME 90 FL (80-99); MONOCYTES % (AUTO) 11.5 % (1.0-10.0); NEUTROPHILS % (AUTO) 67.4 % (45.0-75.0); PLATELET COUNT 131 K/UL (150-450); RED CELL DISTRIBUTION WIDTH 13.6 % (11.6-14.8); WHITE BLOOD COUNT 5.6 K/UL (4.8-10.8)
[2018-07-16] MEDS: NovoLOG Insulin Flexpen SUBQ SCH ×3 (05:16→18:00)
[2018-07-16 05:51] LABS: ALANINE AMINOTRANSFERASE 119 U/L (12-78); ALBUMIN 2.4 G/DL (3.4-5.0); ALBUMIN/GLOBULIN RATIO 0.6 (1.0-2.7); ALKALINE PHOSPHATASE 199 U/L (46-116); ANION GAP 8 mmol/L (5-15); ASPARTATE AMINO TRANSFERASE 62 U/L (15-37); BILIRUBIN,TOTAL 0.4 MG/DL (0.2-1.0); BLOOD UREA NITROGEN 6 mg/dL (7-18); CALCIUM 8.4 MG/DL (8.5-10.1); CARBON DIOXIDE 24 MMOL/L (21-32); CHLORIDE 112 MMOL/L (98-107); CREATININE 0.8 MG/DL (0.55-1.30); POTASSIUM 3.6 MMOL/L (3.5-5.1); SODIUM 144 MMOL/L (136-145)
--- NOTE | 2018-07-16 06:00 | NUR ---
NURSE NOTES: Patient repositioned. Remains sedated, RASS -2. Patient BP and HR have remains stable for PM shift. Versed ongoing.
[2018-07-16] MEDS: NS w/KCl 20mEq 1000ml 1,000 ML IV SCH (06:30)
--- NOTE | 2018-07-16 07:26 | NUR ---
HAND-OFF: Report given to Courtney TAMAYO.
--- NOTE | 2018-07-16 08:02 | NUR ---
NURSE NOTES: Patient report received from RONI Meza. Awake when received with episode of drowsiness.Afebrile and ETT 09/04 AC 14 Vt 600 FiO2 30% Peep 5.On Versed drip at 16mg/hr. On seizure and fall precaution. Siderails pads.NPO at this time pending US abd.Abdomen soft and non distended.Mouth care done,large amount secretion thin and clear, suctioned as tolerated, kept clean and dry. Will continue to monitor.
[2018-07-16] MEDS ORDERED: Heparin1,000 units/500ml Premix(Conc:2 units/ml) IV PRN (08:30)
[2018-07-16] MEDS ORDERED: Lidocaine 1% Plain 30 ml INJ PRN (08:30)
--- NOTE | 2018-07-16 08:35 | NUR ---
RADIOLOGY DEPT. , CHEST X-RAY DONE.-P.DYE
[2018-07-16] MEDS: levETIRAcetam 1,000mg/NS100ml IVPB SCH ×2 (08:41→20:37)
[2018-07-16] MEDS: levETIRAcetam 500mg/NS100ml IVPB SCH ×2 (08:47→21:11)
--- NOTE | 2018-07-16 10:19 | Pulmonolgy Critical Care Note ---
Critical Care - Asmt/Plan Problems: (1) Acute metabolic encephalopathy (2) Acute respiratory failure (3) Seizure disorder (4) COPD (chronic obstructive pulmonary disease) (5) Diabetes mellitus (6) Prostate cancer, primary, 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 site (7) Chronic low back pain Respiratory: monitor respiratory rate, adjust FIO2, CXR Cardiac: continue pressors, continue to monitor HR/BP Renal: F/U I&O, check electrolytes Infectious Disease: check cultures, continue antibiotics Gastrointestinal: hold feedings Endocrine: monitor blood sugar, check TSH, check HgA1C Hematologic: transfuse if hgb<8.5 Neurologic: keep patient comfortable Prophylaxis: Protonix, Heparin Time Spent (Minutes): 40 Notes Reviewed: cardio, renal Discussed with: nurses, consultants, case management rnmanager regional - Objective Last 24 Hour Vital Signs Date Time Temp Pulse Resp B/P (MAP) Pulse Ox O2 Delivery O2 Flow Rate FiO2 07/16/18 10:03 15 Mechanical Ventilator 30 07/16/18 10:00 76 14 138/69 100 Mechanical Ventilator 30 07/16/18 09:00 74 14 148/72 100 Mechanical Ventilator 30 07/16/18 08:00 73 14 150/73 100 Mechanical Ventilator 30 07/16/18 07:30 71 14 30 07/16/18 07:00 98.2 74 14 127/62 100 Mechanical Ventilator 30 07/16/18 07:00 14 Mechanical Ventilator 30 07/16/18 06:00 71 14 112/68 100 Mechanical Ventilator 30 07/16/18 06:00 14 Mechanical Ventilator 30 07/16/18 05:30 78 14 136/70 100 Mechanical Ventilator 30 07/16/18 05:17 14 30 07/16/18 05:00 98.0 74 14 130/70 100 Mechanical Ventilator 30 07/16/18 05:00 14 Mechanical Ventilator 30 07/16/18 04:50 69 14 30 07/16/18 04:30 74 14 135/79 100 Mechanical Ventilator 30 07/16/18 04:00 69 07/16/18 04:00 75 14 115/101 100 Mechanical Ventilator 30 07/16/18 04:00 14 Mechanical Ventilator 30 07/16/18 04:00 Mechanical Ventilator 07/16/18 04:00 30 07/16/18 03:30 85 17 118/73 100 Mechanical Ventilator 30 07/16/18 03:08 77 17 30 07/16/18 03:00 72 15 161/85 100 Mechanical Ventilator 30 07/16/18 03:00 14 Mechanical Ventilator 30 07/16/18 02:30 66 14 122/66 100 Mechanical Ventilator 30 07/16/18 02:00 14 Mechanical Ventilator 30 07/16/18 02:00 67 14 124/68 100 Mechanical Ventilator 30 07/16/18 01:30 74 14 154/93 100 Mechanical Ventilator 30 07/16/18 01:17 16 Mechanical Ventilator 30 07/16/18 01:10 76 14 30 07/16/18 01:00 14 Mechanical Ventilator 30 07/16/18 01:00 77 15 147/75 100 Mechanical Ventilator 30 07/16/18 00:30 75 14 118/73 100 Mechanical Ventilator 30 07/16/18 00:00 73 07/16/18 00:00 99.0 76 21 150/81 100 Mechanical Ventilator 30 07/16/18 00:00 14 Mechanical Ventilator 30 07/16/18 00:00 30 07/16/18 00:00 Mechanical Ventilator 07/15/18 23:00 80 15 141/81 100 Mechanical Ventilator 30 07/15/18 23:00 Mechanical Ventilator 30 07/15/18 22:52 77 17 30 07/15/18 22:30 79 16 136/76 100 Mechanical Ventilator 30 07/15/18 22:02 Mechanical Ventilator 30 07/15/18 22:00 80 16 136/76 100 Endotracheal Tube 30 07/15/18 22:00 14 Mechanical Ventilator 30 07/15/18 21:00 85 15 117/66 100 Endotracheal Tube 30 07/15/18 21:00 14 Mechanical Ventilator 30 07/15/18 20:54 76 16 30 07/15/18 20:30 79 15 145/77 100 Endotracheal Tube 30 07/15/18 20:12 14 Mechanical Ventilator 30 07/15/18 20:00 99.5 71 15 124/66 100 Endotracheal Tube 30 07/15/18 20:00 75 07/15/18 20:00 30 07/15/18 20:00 Mechanical Ventilator 07/15/18 19:20 78 17 30 07/15/18 19:00 15 Mechanical Ventilator 30 07/15/18 19:00 80 15 124/66 100 Endotracheal Tube 30 07/15/18 18:30 74 15 101/61 100 Endotracheal Tube 30 07/15/18 18:22 14 Mechanical Ventilator 30 07/15/18 18:21 14 Mechanical Ventilator 35 07/15/18 18:00 73 14 96/58 100 Endotracheal Tube 30 07/15/18 18:00 14 Mechanical Ventilator 30 07/15/18 17:30 75 14 108/65 100 Endotracheal Tube 30 07/15/18 17:00 14 Mechanical Ventilator 30 07/15/18 17:00 79 14 131/69 100 Endotracheal Tube 30 07/15/18 16:58 82 16 30 07/15/18 16:30 69 14 116/67 100 Endotracheal Tube 30 07/15/18 16:00 98.6 65 14 103/64 100 Endotracheal Tube 30 07/15/18 16:00 14 Mechanical Ventilator 30 07/15/18 16:00 30 07/15/18 16:00 63 07/15/18 16:00 Mechanical Ventilator 07/15/18 15:30 65 14 122/71 100 Endotracheal Tube 30 07/15/18 15:25 14 Endotracheal Tube 30 07/15/18 15:24 15 Mechanical Ventilator 30 07/15/18 15:01 66 14 30 07/15/18 15:00 69 14 93/67 100 Endotracheal Tube 30 07/15/18 15:00 14 Endotracheal Tube 30 07/15/18 14:30 74 14 94/61 100 Endotracheal Tube 30 07/15/18 14:00 14 Mechanical Ventilator 30 07/15/18 14:00 76 14 93/56 100 Endotracheal Tube 30 07/15/18 13:30 80 14 111/64 100 Endotracheal Tube 30 07/15/18 13:04 81 14 30 07/15/18 13:00 15 Mechanical Ventilator 30 07/15/18 13:00 77 14 115/66 100 Endotracheal Tube 30 07/15/18 12:30 77 14 116/67 100 Endotracheal Tube 30 07/15/18 12:20 16 Endotracheal Tube 30 07/15/18 12:19 14 Mechanical Ventilator 30 07/15/18 12:00 98.6 83 18 136/56 100 Endotracheal Tube 30 07/15/18 12:00 14 Mechanical Ventilator 30 07/15/18 12:00 30 07/15/18 12:00 76 07/15/18 12:00 Mechanical Ventilator 07/15/18 11:30 81 14 100/61 100 Endotracheal Tube 30 07/15/18 11:00 83 18 137/69 100 Endotracheal Tube 30 07/15/18 11:00 14 Mechanical Ventilator 30 07/15/18 10:43 76 14 30 07/15/18 10:30 72 14 100/59 100 Endotracheal Tube 30 Status: awake Condition: critical HEENT: atraumatic Lungs: clear Heart: HR/BP stable Abdomen: soft, non-tender Extremities: no C/C/E Decubiti: location Accucheck: 98 Critical Care - Subjective ROS Limited/Unobtainable: Yes Condition: critical EKG Rhythm: Sinus Rhythm FI02: 30 Vent Support Breath Rate: 14 Vent Support Mode: AC Vent Tidal Volume: 600 Sputum Amount: Small PEEP: 5.0 PIP: 27 Tube Feeding Amount: 30 I&O: Intake and Output 07/15/18 07/16/18 18:59 06:59 Intake Total 2570.050 ml 2265.42 ml Output Total 1590 ml 1195 ml Balance 980.050 ml 1070.42 ml Intake Free Water 200 ml 120 ml IV Total 2010.050 ml 1935.42 ml Tube Feeding 360 ml 210 ml Output Urine Total 1590 ml 1195 ml CXR: clear ET-Tube: 7.0 ET Position: 23 Labs: Laboratory Tests Test 07/16/18 04:00 White Blood Count 5.6 K/UL (4.8-10.8) Red Blood Count 3.50 M/UL (4.70-6.10) L Hemoglobin 10.4 G/DL (14.2-18.0) L Hematocrit 31.5 % (42.0-52.0) L Mean Corpuscular Volume 90 FL (80-99) Mean Corpuscular Hemoglobin 29.6 PG (27.0-31.0) Mean Corpuscular Hemoglobin Concent 32.9 G/DL (32.0-36.0) Red Cell Distribution Width 13.6 % (11.6-14.8) Platelet Count 131 K/UL (150-450) L Mean Platelet Volume 6.7 FL (6.5-10.1) Neutrophils (%) (Auto) 67.4 % (45.0-75.0) Lymphocytes (%) (Auto) 17.9 % (20.0-45.0) L Monocytes (%) (Auto) 11.5 % (1.0-10.0) H Eosinophils (%) (Auto) 2.5 % (0.0-3.0) Basophils (%) (Auto) 0.6 % (0.0-2.0) Activated Partial Thromboplast Time 90 SEC (23-33) H Sodium Level 144 MMOL/L (136-145) Potassium Level 3.6 MMOL/L (3.5-5.1) Chloride Level 112 MMOL/L (98-107) H Carbon Dioxide Level 24 MMOL/L (21-32) Anion Gap 8 mmol/L (5-15) Blood Urea Nitrogen 6 mg/dL (7-18) L Creatinine 0.8 MG/DL (0.55-1.30) Estimat Glomerular Filtration Rate mL/min (>60) Glucose Level 98 MG/DL (74-106) Calcium Level 8.4 MG/DL (8.5-10.1) L Total Bilirubin 0.4 MG/DL (0.2-1.0) Aspartate Amino Transf (AST/SGOT) 62 U/L (15-37) H Alanine Aminotransferase (ALT/SGPT) 119 U/L (12-78) H Alkaline Phosphatase 199 U/L (46-116) H Total Protein 6.5 G/DL (6.4-8.2) Albumin 2.4 G/DL (3.4-5.0) L Globulin 4.1 g/dL Albumin/Globulin Ratio 0.6 (1.0-2.7) L Prostate Specific Antigen < 0.10 ng/mL (0.13-4.0) L Free Prostate Specific Antigen Pending Percent Free Prostate Specific Ag Pending Prostate Specific Antigen Total Pending Hepatitis A IgM Antibody Pending Hepatitis B Surface Antigen Pending Hepatitis B Core IgM Antibody Pending Hepatitis C Antibody Pending Maria E Shine MD Jul 16, 2018 10:19
--- NOTE | 2018-07-16 10:32 | NUR ---
NURSE NOTES: Abd US done,turned and repositioned.Kept clean and dry.HOB elevated to prevent aspiration
--- NOTE | 2018-07-16 10:37 | NUR ---
RD ASSESSMENT & RECOMMENDATIONS SEE CARE ACTIVITY FOR COMPLETE ASSESSMENT DAILY ESTIMATED NEEDS: Needs based on Critical care, 80kg 22-28 kcals/kg 8650-8812 total kcals 1-2 g protein/kg 80-160 g total protein 25-30 mL/kg 9528-8527 total fluid mLs NUTRITION DIAGNOSIS: Swallowing difficulty R/T respiratory status as evidenced by pt is orally intubated, on NGT feeds. (CURRENT TF: Glucerna 1.2 @30) ENTERAL NUTRITION RECOMMENDATIONS: TF CHANGE-> GLUCERNA 1.5 @50ml/hr x 24 hrs to provide 1200ml, 1800kcal, 99g prot, 911ml free water * REC TF CHANGE TO GLUCERNA 1.5 FOR LESS FREE FLUID AND TO BETTER MEET EST KCAL/PRO NEEDS -> Initiate GLUCERNA 1.5 @ 20ml/hr x 6 hrs, advance 10ml q 4-6 hrs as tolerated to goal rate. * HOB over 30 degrees/ water flush per MD ADDITIONAL RECOMMENDATIONS: * Obtain calibrated bedscale wt for accurate CBW * TF RECS ABOVE, REC CHANGE TO 1.5 FORMULA FOR LESS FREE FLUID D/T ELEV SECRETIONS * Lytes daily, replete as needed
--- NOTE | 2018-07-16 11:42 | Diagnostic Imaging Report ---
Indication: Chest pain Comparison: July 15, 2018 A single view chest radiograph was obtained. Findings: Mild vascular congestion suspected. The right hilum is prominent but is likely vascular. Heart size is normal. Endotracheal tube and nasogastric tubes in good position. IMPRESSION: Mild pulmonary vascular congestion suspected
--- NOTE | 2018-07-16 12:11 | NUR ---
NURSE NOTES: Seen by Holli,[employer] will follow up with new order.Turned and repositioned.Mouth care done,HOB elevated to prevent aspiration.GT feeding started Glucerna 1.5 @20, goal 50. Tolerate well at this time.GT placement checked and intact, with no residual at this time.
--- NOTE | 2018-07-16 12:46 | NUR ---
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 ACUTE METABOLIC ENCEPHALOPATHY VS: BP 150/73, P 73, T 98.2, RR 14, SpO2 100 ON VENT AC 14, TV 600, PEEP 5.0, FiO2 30 RBC 3.50, H&H 10.4/31.5, Plt. Count 131, BUN 6, AST 62, ALT 119, ALK.PHOS 199 CXR:Mild pulmonary vascular congestion suspected IS:MORPHINE 4mg IVP MIDAZOLAM 100ml IV LEVETIRACETAM 100ml IVPB POTASSIUM CHLORIDE x1L IV VALPROATE SODIUM 65ml IV ICU STATUS
--- NOTE | 2018-07-16 13:35 | Diagnostic Imaging Report ---
Indication: Abdominal pain Technique: Grayscale and duplex Doppler imaging of the abdomen performed. Comparison: None Findings: The liver is unremarkable. Doppler interrogation of the main portal vein shows patency with hepatopedal, monophasic flow. There is no biliary ductal dilitation identified. The CBD measures 7 mm.. Gallstone noted. No wall thickening is present. Sonographic Pratt's is negative per technologist. The demonstrated part of the pancreas, aorta and IVC show no abnormalities. Kidneys are echogenic. There is no hydronephrosis. There are small bilateral renal cysts. Spleen is prominent measuring 14 cm. There is no free fluid identified. IMPRESSION: Cholelithiasis. Medical renal disease. Splenomegaly Bilateral renal cysts
--- NOTE | 2018-07-16 14:10 | Diagnostic Imaging Report ---
Indication: long term care pharmacist venous access Findings: After the indications, procedure, risks, complications, and alternatives of the procedure were explained, written informed consent was obtained. The left upper extremity was prepped with alcohol. All elements of maximal sterile barrier technique were followed including usage of a cap, mask, sterile gown, sterile gloves, hand hygiene and a large sterile sheet. Sonographic evaluation of the upper extremity was performed demonstrating a patent and compressible brachial vein. Access was obtained under real-time ultrasound guidance (with utilization of sterile gel and sterile probe cover) and digital image was saved and archived. An .018 wire was introduced. Needle exchanged for a 5 [place] peel-away sheath. Measurements were obtained. A 5 [place] dual-lumen Power PICC line catheter was cut to 38 cm and introduced over the wire. Peel-away sheath and wire were removed.Catheter was secured to the skin using 2-0 Prolene suture. Both ports aspirate and flush easily. Post procedure chest x-ray demonstrates good position of the PICC line catheter within the SVC. Impression: Successful placement of an upper extremity PICC line catheter
--- NOTE | 2018-07-16 14:35 | NUR ---
NURSE NOTES: Turned and repositioned.HOB elevated at 35 degree.Kept on close monitoring Addendum: 07/16/18 at 1436 by Courtney Lazcano RN KAMILLA picc line placed, double lumen
[2018-07-16] MEDS: Heparin 25,000u/D5W 500ml 500 ML IV SCH (16:03)
--- NOTE | 2018-07-16 16:15 | NUR ---
NURSE NOTES: Turned and repositioned, mouth care done,suctioned as tolerated.Kept clean dry and comfortable.HOB elevated at 35 degree to prevent aspiration.
--- NOTE | 2018-07-16 17:52 | Infectious Diseases Prog Note ---
Assessment/Plan Assessment/Plan 72 yo male with PMHx of TBI, Seizure disorder, COPD, Encephalopathy, DM, HTN, CVA, Renal failure, CAD and Dysphagia s/p Peg who was brought to the ED on with intractable seizures. Respiratory failure Most probably due to seizures Active PNA unlikely Sputum Cx 07/12/18 - NF Bacteriuria UTI unlikely UCx - Staph h. S/P 2 days Vancomycin DVT right leg On Heparin TBI Seizure disorder COPD Encephalopathy DM HTN CVA Renal failure CAD Dysphagia s/p Peg PLAN - Monitor off abx 07/15/18 S/P Vancomcyin and Zosyn #2 - Supportive care - Monitor CBC and Temps Subjective Allergies: Coded Allergies: HALOPERIDOL (Verified Allergy, Mild, [place] really bad, 07/05/16) Makes him irritable. THIORIDAZINE (Verified Allergy, Mild, [place] really bad, 07/05/16) Makes him violent TRAZODONE (Verified Allergy, Mild, [place] really bad, 07/05/16) Too strong; inability to move. Uncoded Allergies: PSYCHOTROPIC MEDICATION (Allergy, Mild, 08/13/14) Subjective in ICU Objective Vital Signs Last 24 Hour Vital Signs Date Time Temp Pulse Resp B/P (MAP) Pulse Ox O2 Delivery O2 Flow Rate FiO2 07/16/18 16:44 87 14 30 07/16/18 16:00 Mechanical Ventilator 07/16/18 16:00 84 07/16/18 16:00 98.6 89 14 115/70 100 Mechanical Ventilator 30 07/16/18 16:00 30 07/16/18 14:45 88 16 30 07/16/18 14:00 83 14 130/67 100 Mechanical Ventilator 30 07/16/18 13:00 78 14 148/77 100 Mechanical Ventilator 30 07/16/18 12:00 Mechanical Ventilator 07/16/18 12:00 98.4 76 14 136/71 100 Mechanical Ventilator 30 07/16/18 12:00 30 07/16/18 12:00 78 07/16/18 11:13 78 16 30 07/16/18 11:00 75 14 117/67 100 Mechanical Ventilator 30 07/16/18 11:00 14 Mechanical Ventilator 30 07/16/18 11:00 14 Mechanical Ventilator 30 07/16/18 11:00 14 Mechanical Ventilator 30 07/16/18 10:33 98.4 07/16/18 10:33 98.4 07/16/18 10:03 15 Mechanical Ventilator 30 07/16/18 10:00 14 Mechanical Ventilator 30 07/16/18 10:00 76 14 138/69 100 Mechanical Ventilator 30 07/16/18 09:30 73 14 30 07/16/18 09:00 14 Mechanical Ventilator 30 07/16/18 09:00 74 14 148/72 100 Mechanical Ventilator 30 07/16/18 08:00 30 07/16/18 08:00 73 14 150/73 100 Mechanical Ventilator 30 07/16/18 08:00 14 Mechanical Ventilator 30 07/16/18 08:00 Mechanical Ventilator 07/16/18 08:00 66 07/16/18 07:30 71 14 30 07/16/18 07:00 98.2 74 14 127/62 100 Mechanical Ventilator 30 07/16/18 07:00 14 Mechanical Ventilator 30 07/16/18 06:00 71 14 112/68 100 Mechanical Ventilator 30 07/16/18 06:00 14 Mechanical Ventilator 30 07/16/18 05:30 78 14 136/70 100 Mechanical Ventilator 30 07/16/18 05:17 14 30 07/16/18 05:00 98.0 74 14 130/70 100 Mechanical Ventilator 30 07/16/18 05:00 14 Mechanical Ventilator 30 07/16/18 04:50 69 14 30 07/16/18 04:30 74 14 135/79 100 Mechanical Ventilator 30 07/16/18 04:00 69 07/16/18 04:00 75 14 115/101 100 Mechanical Ventilator 30 07/16/18 04:00 14 Mechanical Ventilator 30 07/16/18 04:00 Mechanical Ventilator 07/16/18 04:00 30 07/16/18 03:30 85 17 118/73 100 Mechanical Ventilator 30 07/16/18 03:08 77 17 30 07/16/18 03:00 72 15 161/85 100 Mechanical Ventilator 30 07/16/18 03:00 14 Mechanical Ventilator 30 07/16/18 02:30 66 14 122/66 100 Mechanical Ventilator 30 07/16/18 02:00 14 Mechanical Ventilator 30 07/16/18 02:00 67 14 124/68 100 Mechanical Ventilator 30 07/16/18 01:30 74 14 154/93 100 Mechanical Ventilator 30 07/16/18 01:17 16 Mechanical Ventilator 30 07/16/18 01:10 76 14 30 07/16/18 01:00 14 Mechanical Ventilator 30 07/16/18 01:00 77 15 147/75 100 Mechanical Ventilator 30 07/16/18 00:30 75 14 118/73 100 Mechanical Ventilator 30 07/16/18 00:00 73 07/16/18 00:00 99.0 76 21 150/81 100 Mechanical Ventilator 30 07/16/18 00:00 14 Mechanical Ventilator 30 07/16/18 00:00 30 07/16/18 00:00 Mechanical Ventilator 07/15/18 23:00 80 15 141/81 100 Mechanical Ventilator 30 07/15/18 23:00 Mechanical Ventilator 30 07/15/18 22:52 77 17 30 07/15/18 22:30 79 16 136/76 100 Mechanical Ventilator 30 07/15/18 22:02 Mechanical Ventilator 30 07/15/18 22:00 80 16 136/76 100 Endotracheal Tube 30 07/15/18 22:00 14 Mechanical Ventilator 30 07/15/18 21:00 85 15 117/66 100 Endotracheal Tube 30 07/15/18 21:00 14 Mechanical Ventilator 30 07/15/18 20:54 76 16 30 07/15/18 20:30 79 15 145/77 100 Endotracheal Tube 30 07/15/18 20:12 14 Mechanical Ventilator 30 07/15/18 20:00 99.5 71 15 124/66 100 Endotracheal Tube 30 07/15/18 20:00 75 07/15/18 20:00 30 07/15/18 20:00 Mechanical Ventilator 07/15/18 19:20 78 17 30 07/15/18 19:00 15 Mechanical Ventilator 30 07/15/18 19:00 80 15 124/66 100 Endotracheal Tube 30 07/15/18 18:30 74 15 101/61 100 Endotracheal Tube 30 07/15/18 18:22 14 Mechanical Ventilator 30 07/15/18 18:21 14 Mechanical Ventilator 35 07/15/18 18:00 73 14 96/58 100 Endotracheal Tube 30 07/15/18 18:00 14 Mechanical Ventilator 30 Height (Feet): 6 Weight (Pounds): 168 HEENT: anicteric Respiratory/Chest: lungs clear Cardiovascular: normal rate Abdomen: soft, non tender Laboratory Tests Test 07/16/18 04:00 07/16/18 11:26 White Blood Count 5.6 K/UL (4.8-10.8) Red Blood Count 3.50 M/UL (4.70-6.10) L Hemoglobin 10.4 G/DL (14.2-18.0) L Hematocrit 31.5 % (42.0-52.0) L Mean Corpuscular Volume 90 FL (80-99) Mean Corpuscular Hemoglobin 29.6 PG (27.0-31.0) Mean Corpuscular Hemoglobin Concent 32.9 G/DL (32.0-36.0) Red Cell Distribution Width 13.6 % (11.6-14.8) Platelet Count 131 K/UL (150-450) L Mean Platelet Volume 6.7 FL (6.5-10.1) Neutrophils (%) (Auto) 67.4 % (45.0-75.0) Lymphocytes (%) (Auto) 17.9 % (20.0-45.0) L Monocytes (%) (Auto) 11.5 % (1.0-10.0) H Eosinophils (%) (Auto) 2.5 % (0.0-3.0) Basophils (%) (Auto) 0.6 % (0.0-2.0) Activated Partial Thromboplast Time 90 SEC (23-33) H Sodium Level 144 MMOL/L (136-145) Potassium Level 3.6 MMOL/L (3.5-5.1) Chloride Level 112 MMOL/L (98-107) H Carbon Dioxide Level 24 MMOL/L (21-32) Anion Gap 8 mmol/L (5-15) Blood Urea Nitrogen 6 mg/dL (7-18) L Creatinine 0.8 MG/DL (0.55-1.30) Estimat Glomerular Filtration Rate mL/min (>60) Glucose Level 98 MG/DL (74-106) Calcium Level 8.4 MG/DL (8.5-10.1) L Total Bilirubin 0.4 MG/DL (0.2-1.0) Aspartate Amino Transf (AST/SGOT) 62 U/L (15-37) H Alanine Aminotransferase (ALT/SGPT) 119 U/L (12-78) H Alkaline Phosphatase 199 U/L (46-116) H Total Protein 6.5 G/DL (6.4-8.2) Albumin 2.4 G/DL (3.4-5.0) L Globulin 4.1 g/dL Albumin/Globulin Ratio 0.6 (1.0-2.7) L Prostate Specific Antigen < 0.10 ng/mL (0.13-4.0) L Free Prostate Specific Antigen Pending Percent Free Prostate Specific Ag Pending Prostate Specific Antigen Total Pending Hepatitis A IgM Antibody Pending Hepatitis B Surface Antigen Pending Hepatitis B Core IgM Antibody Pending Hepatitis C Antibody Pending Arterial Blood pH 7.457 (7.350-7.450) Arterial Blood Partial Pressure CO2 31.0 mmHg (35.0-45.0) L Arterial Blood Partial Pressure O2 116.9 mmHg (75.0-100.0) H Arterial Blood HCO3 21.4 mmol/L (22.0-26.0) L Arterial Blood Oxygen Saturation 97.9 % (95-100) Arterial Blood Base Excess -1.7 (-2-2) Sudhakar Test Positive Current Medications Medications (Trade) Dose Ordered Sig/Jesi Route PRN Reason Start Time Stop Time Status Last Admin Dose Admin Albuterol/ Ipratropium (Albuterol/ Ipratropium) 3 ml Q4H PRN HHN sob 07/15/18 09:00 07/20/18 08:59 Chlorhexidine Gluconate (Candie-Hex 2%) 1 applic DAILY@2000 TOPIC 07/16/18 20:00 08/15/18 19:59 Dextrose (Dextrose 50%) 25 ml Q30M PRN IV Hypoglycemia 07/13/18 01:15 08/12/18 01:14 Dextrose (Dextrose 50%) 50 ml Q30M PRN IV Hypoglycemia 07/13/18 01:15 08/12/18 01:14 Famotidine (Pepcid I.v.) 20 mg Q12HR IVP 07/13/18 09:00 08/12/18 08:59 07/16/18 08:40 Heparin Sodium/ Dextrose 500 ml @ 25.7 mls/hr ADJUST PER PROTOCOL IV 07/13/18 19:30 08/12/18 19:29 07/16/18 16:03 Heparin Sodium/ Sodium Chloride (Heparin 1000 units/500ml Premix) 1,000 unit ONCE PRN IV picc line placement 07/16/18 08:30 07/17/18 08:29 Insulin Aspart (NovoLOG) EVERY 6 HOURS SUBQ 07/14/18 00:00 08/12/18 12:29 Levetiracetam 100 ml @ 400 mls/hr Q12H IVPB 07/14/18 21:15 08/13/18 21:14 07/16/18 08:47 Levetiracetam 100 ml @ 400 mls/hr Q12HR IVPB 07/14/18 21:00 08/13/18 20:59 07/16/18 08:41 Lidocaine HCl (Xylocaine 1% 30ml) 30 ml ONCE PRN INJ picc line placement 07/16/18 08:30 07/17/18 08:29 Lorazepam (Ativan 2mg/ml 1ml) 2 mg Q4H PRN IV For Anxiety 07/13/18 11:45 07/20/18 11:44 07/16/18 01:22 Morphine Sulfate (Morphine Sulfate) 4 mg Q4H PRN IVP For Pain 07/13/18 12:00 07/20/18 11:59 07/16/18 10:04 Valproate Sodium 1000 mg/Dextrose 65 ml @ 32.5 mls/hr Q12HR@0100,1300 IV 07/14/18 13:00 08/13/18 12:59 07/16/18 13:21 Catrachito Torres MD Jul 16, 2018 17:52
--- NOTE | 2018-07-16 18:05 | NUR ---
NURSE NOTES: ADLs done,turned and repositioned.Mouth care performed,HOB elevated to prevent aspiration.Kept clean dry and comfortable.
--- NOTE | 2018-07-16 19:06 | Internal Med Progress Note ---
Subjective Date of Service: Jul 16, 2018 Physician Name Michael Rojo Attending Physician Will Mejía MD Current Medications Medications (Trade) Dose Ordered Sig/Jesi Route PRN Reason Start Time Stop Time Status Last Admin Dose Admin Albuterol/ Ipratropium (Albuterol/ Ipratropium) 3 ml Q4H PRN HHN sob 07/15/18 09:00 07/20/18 08:59 Chlorhexidine Gluconate (Candie-Hex 2%) 1 applic DAILY@2000 TOPIC 07/16/18 20:00 08/15/18 19:59 Dextrose (Dextrose 50%) 25 ml Q30M PRN IV Hypoglycemia 07/13/18 01:15 08/12/18 01:14 Dextrose (Dextrose 50%) 50 ml Q30M PRN IV Hypoglycemia 07/13/18 01:15 08/12/18 01:14 Famotidine (Pepcid I.v.) 20 mg Q12HR IVP 07/13/18 09:00 08/12/18 08:59 07/16/18 08:40 Heparin Sodium/ Dextrose 500 ml @ 25.7 mls/hr ADJUST PER PROTOCOL IV 07/13/18 19:30 08/12/18 19:29 07/16/18 16:03 Heparin Sodium/ Sodium Chloride (Heparin 1000 units/500ml Premix) 1,000 unit ONCE PRN IV picc line placement 07/16/18 08:30 07/17/18 08:29 Insulin Aspart (NovoLOG) EVERY 6 HOURS SUBQ 07/14/18 00:00 08/12/18 12:29 Levetiracetam 100 ml @ 400 mls/hr Q12H IVPB 07/14/18 21:15 08/13/18 21:14 07/16/18 08:47 Levetiracetam 100 ml @ 400 mls/hr Q12HR IVPB 07/14/18 21:00 08/13/18 20:59 07/16/18 08:41 Lidocaine HCl (Xylocaine 1% 30ml) 30 ml ONCE PRN INJ picc line placement 07/16/18 08:30 07/17/18 08:29 Lorazepam (Ativan 2mg/ml 1ml) 2 mg Q4H PRN IV For Anxiety 07/13/18 11:45 07/20/18 11:44 07/16/18 18:12 Morphine Sulfate (Morphine Sulfate) 4 mg Q4H PRN IVP For Pain 07/13/18 12:00 07/20/18 11:59 07/16/18 18:12 Valproate Sodium 1000 mg/Dextrose 65 ml @ 32.5 mls/hr Q12HR@0100,1300 IV 07/14/18 13:00 08/13/18 12:59 07/16/18 13:21 Allergies: Coded Allergies: HALOPERIDOL (Verified Allergy, Mild, [place] really bad, 07/05/16) Makes him irritable. THIORIDAZINE (Verified Allergy, Mild, [place] really bad, 07/05/16) Makes him violent TRAZODONE (Verified Allergy, Mild, [place] really bad, 07/05/16) Too strong; inability to move. Uncoded Allergies: PSYCHOTROPIC MEDICATION (Allergy, Mild, 08/13/14) ROS Limited/Unobtainable: Yes Subjective 72 YO M admitted with breakthrough seizure. Now respiratory failure. Intubated and sedated. Cover for Int Connor-Dr Mejía. ICU Objective Last Vital Signs Date Time Temp Pulse Resp B/P (MAP) Pulse Ox O2 Delivery O2 Flow Rate FiO2 07/16/18 18:42 98.2 07/16/18 18:00 94 14 122/74 100 Mechanical Ventilator 30 Laboratory Tests Test 07/16/18 04:00 07/16/18 11:26 White Blood Count 5.6 K/UL (4.8-10.8) Red Blood Count 3.50 M/UL (4.70-6.10) L Hemoglobin 10.4 G/DL (14.2-18.0) L Hematocrit 31.5 % (42.0-52.0) L Mean Corpuscular Volume 90 FL (80-99) Mean Corpuscular Hemoglobin 29.6 PG (27.0-31.0) Mean Corpuscular Hemoglobin Concent 32.9 G/DL (32.0-36.0) Red Cell Distribution Width 13.6 % (11.6-14.8) Platelet Count 131 K/UL (150-450) L Mean Platelet Volume 6.7 FL (6.5-10.1) Neutrophils (%) (Auto) 67.4 % (45.0-75.0) Lymphocytes (%) (Auto) 17.9 % (20.0-45.0) L Monocytes (%) (Auto) 11.5 % (1.0-10.0) H Eosinophils (%) (Auto) 2.5 % (0.0-3.0) Basophils (%) (Auto) 0.6 % (0.0-2.0) Activated Partial Thromboplast Time 90 SEC (23-33) H Sodium Level 144 MMOL/L (136-145) Potassium Level 3.6 MMOL/L (3.5-5.1) Chloride Level 112 MMOL/L (98-107) H Carbon Dioxide Level 24 MMOL/L (21-32) Anion Gap 8 mmol/L (5-15) Blood Urea Nitrogen 6 mg/dL (7-18) L Creatinine 0.8 MG/DL (0.55-1.30) Estimat Glomerular Filtration Rate mL/min (>60) Glucose Level 98 MG/DL (74-106) Calcium Level 8.4 MG/DL (8.5-10.1) L Total Bilirubin 0.4 MG/DL (0.2-1.0) Aspartate Amino Transf (AST/SGOT) 62 U/L (15-37) H Alanine Aminotransferase (ALT/SGPT) 119 U/L (12-78) H Alkaline Phosphatase 199 U/L (46-116) H Total Protein 6.5 G/DL (6.4-8.2) Albumin 2.4 G/DL (3.4-5.0) L Globulin 4.1 g/dL Albumin/Globulin Ratio 0.6 (1.0-2.7) L Prostate Specific Antigen < 0.10 ng/mL (0.13-4.0) L Free Prostate Specific Antigen Pending Percent Free Prostate Specific Ag Pending Prostate Specific Antigen Total Pending Hepatitis A IgM Antibody Pending Hepatitis B Surface Antigen Pending Hepatitis B Core IgM Antibody Pending Hepatitis C Antibody Pending Arterial Blood pH 7.457 (7.350-7.450) Arterial Blood Partial Pressure CO2 31.0 mmHg (35.0-45.0) L Arterial Blood Partial Pressure O2 116.9 mmHg (75.0-100.0) H Arterial Blood HCO3 21.4 mmol/L (22.0-26.0) L Arterial Blood Oxygen Saturation 97.9 % (95-100) Arterial Blood Base Excess -1.7 (-2-2) Sudhakar Test Positive Intake and Output 07/15/18 07/16/18 19:00 07:00 Intake Total 2658.050 ml 2151.42 ml Output Total 1540 ml 1155 ml Balance 1118.050 ml 996.42 ml Intake Free Water 300 ml 20 ml IV Total 1998.050 ml 1951.42 ml Tube Feeding 360 ml 180 ml Output Urine Total 1540 ml 1155 ml Objective PHYSICAL EXAMINATION: GENERAL: The patient is a thin-appearing male, in no apparent distress. The patient is intubated and sedated. HEENT: Eyes, pupils are equal and responsive to light and accommodation. Extraocular movements are intact. NECK: Supple. No lymphadenopathy. CHEST: Mech vent; Few expiratory wheezes bilaterally. Otherwise, without crackles or rales. CARDIOVASCULAR: Tachycardic, regular rate. S1 and S2 are normal without murmurs, rubs, or gallops. ABDOMEN: Soft, nontender, and nondistended. Positive bowel sounds. No evidence of hepatosplenomegaly. Currently, no rebound or guarding noted. EXTREMITIES: Negative for clubbing, cyanosis, or edema. RECTAL/GENITAL: Not performed. NEUROLOGICALLY: Unable to assess secondary to the patient's mental status. Assessment/Plan Assessment/Plan ASSESSMENT: This is a 72-year-old male. 1. Intractable seizures. 2. Respiratory failure. 3. Probable pneumonia of the right upper lobe. 4. History of seizure disorder. 5. Chronic obstructive pulmonary disease. 6. Diabetes type 2. 7. Hypertension. 8. Metabolic encephalopathy. 9. Chronic obstructive pulmonary disease. 10. Chronic renal failure. 11. Traumatic brain injury. 12. Gastroesophageal reflux disease. 13. Coronary artery disease. 14. Anemia. 15. History of gastrointestinal hemorrhage. 16. Hypercholesteremia. 17. Cerebrovascular disease, status post cerebrovascular accident. 18. Dysphagia. 19. Prostate cancer with mets 20. UTI=staph haemolyticus TREATMENT: 1. Intractable seizure. A Neurology consultation has been obtained. The patient has been started on Ativan intravenously. We will follow recommendations of Neurology. Continue Keppra, Dilantin, and Depakote as above. 2. Respiratory failure. Pulmonary consultation has been obtained with Dr. Maria E Shine. The patient is currently intubated in the intensive care unit. We will follow recommendations of Pulmonary. 3. Chronic obstructive pulmonary disease. As above, a Pulmonary consultation has been obtained with Dr. Maria E Shine. 4. Diabetes type 2. The patient has been placed on a NovoLog sliding scale. 5. Hypertension. The patient is currently hypotensive. 6. Metabolic encephalopathy. 7. Renal failure. 8. Traumatic brain injury. 9. Gastroesophageal reflux disease. 10. Coronary artery disease. 11. Anemia. 12. Gastrointestinal hemorrhage. 13. Hypercholesterolemia. 14. Cerebrovascular disease. 15. Dysphagia, status post PEG placement. 16. D/C vanco for staph UTI; D/C zosyn for peumonia-await urine and sputum cultures per ID 17. ID consult=Michael Land MD Jul 16, 2018 19:06
--- NOTE | 2018-07-16 19:08 | NUR ---
HAND-OFF: Report given to RONI Irizarry.
--- NOTE | 2018-07-16 19:09 | NUR ---
NURSE NOTES: Endorsement received from RONI Valdez. Patient drowsy, opens eyes to name and light touch. Orally intubated with ET 7.0, 23 lipline. AC 14, 600, 30% FiO2, PEEP 5. NGT at left nare. Patent and intact. Rechecked placement per auscultation. Receiving Glucerna 1.5 at 30 ml/hr with goal of 50ml/hr. Residual checked, 200ml of undigested feeding. Feeding turned off. Sims catheter draining to urimeter. Left upper arm PICC. On heparin drip 16 units/kg/hr. Bilateral heels off loaded. Seizure precautions. Head of bed elevated. Bed locked and in low position. Bed alarm on.
--- NOTE | 2018-07-16 19:13 | NUR ---
RESPIRATORY NOTE: Received pt on AC 14, 600VT, 30%, PEEP +5. Pt intubated w/ ETT 7.0 @ 23cm lipline, secured w/ anchorfast. Pt currently sedated. Bite block in place as pt tends to have his teeth clenched. B/S juan rhonchi, sxn small amounts of thick, pink-gonzáles yellow secretions w/ occasional blood clots. Both hands on soft restraints to prevent pt from self-extubation. Vent plugged into red outlet, ambubag at bedside. Pt in no apparent distress at this time. Will continue to monitor pt.
[2018-07-16] MEDS: Dyna-Hex 2% Top Sol 2oz TOPIC SCH (19:59)
--- NOTE | 2018-07-16 21:00 | NUR ---
NURSE NOTES: Secretions suctioned. Noted with thick small amount red secretions from ETT, copious amount of clear white secretions from mouth.
--- NOTE | 2018-07-16 23:00 | NUR ---
NURSE NOTES: Patient asleep, arousable per name and light touch. Calm. No sign of discomfort.
[2018-07-17] VITALS (24 sets, daily range): BP systolic 113–159; BP diastolic 73–100
--- NOTE | 2018-07-17 | NUR ---
NURSE NOTES: Endorsed to Sharla for continuity of care
[2018-07-17] MEDS: Valproate Sodium INJ 1,000 MG in D5W 55 ML IV SCH ×2 (01:17→12:23)
--- NOTE | 2018-07-17 02:48 | NUR ---
NURSE NOTES: Pt received from RONI Magdaleno. Patient opens eyes to name. Orally intubated with ET 7.0, 23 lipline. AC 14, 600, 30% FiO2, PEEP 5. NGT at left nare. Patent and intact. Receiving Glucerna 1.5 at 30 ml/hr with goal of 50ml/hr. No residual noted. Sims catheter patent and draining. Left upper arm PICC. On heparin drip 16 units/kg/hr. Bilateral heels off loaded. Seizure precautions. Head of bed elevated. Bed locked and in low position. Bed alarm on. Will continue to monitor.
[2018-07-17 05:11] LABS: BASOPHILS % (AUTO) 0.6 % (0.0-2.0); EOSINOPHILS % (AUTO) 2.2 % (0.0-3.0); HEMATOCRIT 34.4 % (42.0-52.0); HEMOGLOBIN 11.4 G/DL (14.2-18.0); LYMPHOCYTES % (AUTO) 10.9 % (20.0-45.0); MEAN CORPUSCULAR VOLUME 89 FL (80-99); MONOCYTES % (AUTO) 11.7 % (1.0-10.0); NEUTROPHILS % (AUTO) 74.6 % (45.0-75.0); PLATELET COUNT 155 K/UL (150-450); RED BLOOD COUNT 3.85 M/UL (4.70-6.10); RED CELL DISTRIBUTION WIDTH 13.4 % (11.6-14.8); WHITE BLOOD COUNT 5.7 K/UL (4.8-10.8)
[2018-07-17 05:41] LABS: ALANINE AMINOTRANSFERASE 85 U/L (12-78); ALBUMIN 2.3 G/DL (3.4-5.0); ALBUMIN/GLOBULIN RATIO 0.5 (1.0-2.7); ALKALINE PHOSPHATASE 222 U/L (46-116); ANION GAP 9 mmol/L (5-15); ASPARTATE AMINO TRANSFERASE 31 U/L (15-37); BILIRUBIN,TOTAL 0.6 MG/DL (0.2-1.0); BLOOD UREA NITROGEN 7 mg/dL (7-18); CALCIUM 8.8 MG/DL (8.5-10.1); CARBON DIOXIDE 24 MMOL/L (21-32); CHLORIDE 108 MMOL/L (98-107); CREATININE 0.9 MG/DL (0.55-1.30); PHOSPHORUS 3.4 MG/DL (2.5-4.9); POTASSIUM 3.3 MMOL/L (3.5-5.1); SODIUM 141 MMOL/L (136-145)
[2018-07-17] MEDS: NovoLOG Insulin Flexpen SUBQ SCH ×4 (06:00→17:18)
[2018-07-17] MEDS ORDERED: Heparin 5000 units/ml inj IV SCH ×2 (06:15→13:45)
[2018-07-17] MEDS: Heparin 25,000u/D5W 500ml 500 ML IV SCH ×3 (06:26→21:18)
--- NOTE | 2018-07-17 07:05 | NUR ---
RESPIRATORY NOTE: received pt orally intubated on current vent settings. ETT size 7.0 placed 23 cm at the lip. ETT secured via anchor fast with no redness or visible skin tears on face, mouth or neck area. vent is plugged into the red outlet with alarms set and audible. ambu bag at bedside. will attempt to wean later this morning and cont to monitor.
--- NOTE | 2018-07-17 07:20 | NUR ---
HAND-OFF: Report given to Love Webb RN. Pt. in bed resting. Stable at hand-off.
--- NOTE | 2018-07-17 07:40 | NUR ---
NURSE NOTES: Received report from RONI Camacho. Pt is asleep, arousable to light pain, drowsy. Patient is orally intubated ETT size 7.0, 23cm at lip line, vent settings: AC 14, TV 600, FIO2 30%, PEEP 5, O2 sat 100%. No acute distress noted. SR noted on the gambling monitor. Right nare NGT intact, running Glucerna 1.2 at 50ml/hr. HOB kept elevated. Sims cath intact, draining jolly urine by gravity. left upper arm double lumen PICC intact, running Heparin drip at 18units/kg/hr. No active bleeding noted. Patient on bilateral soft wrist restraints. No skin breakdown noted, pulses present. Bed in lowest position, locked, side rails upx3. Patient on P200. On seizure precaution, Side rails are padded. Bed alarm on. Will continue to monitor.
[2018-07-17] MEDS: levETIRAcetam 1,000mg/NS100ml IVPB SCH ×2 (08:45→20:25)
[2018-07-17] MEDS: levETIRAcetam 500mg/NS100ml IVPB SCH ×2 (08:45→21:20)
--- NOTE | 2018-07-17 09:24 | NUR ---
RADIOLOGY DEPT., CHEST X-RAY DONE.-P.DYE
--- NOTE | 2018-07-17 09:44 | Pulmonolgy Critical Care Note ---
Critical Care - Asmt/Plan Problems: (1) Acute metabolic encephalopathy (2) Acute respiratory failure (3) Seizure disorder (4) COPD (chronic obstructive pulmonary disease) (5) Diabetes mellitus (6) Prostate cancer, primary, 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 site (7) Chronic low back pain Respiratory: monitor respiratory rate, adjust FIO2, CXR Cardiac: continue to monitor HR/BP Renal: F/U I&O, keep IV fluid, decrease IV fluid, check electrolytes Infectious Disease: check cultures Endocrine: monitor blood sugar, check TSH, continue sliding scale insulin Hematologic: monitor H/H, transfuse if hgb<8.5 Neurologic: PRN Ativan, keep patient comfortable Affect: PRN ativan Prophylaxis: Protonix Notes Reviewed: renal Discussed with: nurses, consultants, case manager specialistabattoir manager - Objective Last 24 Hour Vital Signs Date Time Temp Pulse Resp B/P (MAP) Pulse Ox O2 Delivery O2 Flow Rate FiO2 07/17/18 09:13 100 07/17/18 09:07 86 17 30 07/17/18 09:00 99 16 134/79 100 Mechanical Ventilator 30 07/17/18 09:00 94 07/17/18 08:00 30 07/17/18 08:00 98.3 94 16 135/78 99 Mechanical Ventilator 30 07/17/18 08:00 Mechanical Ventilator 07/17/18 07:02 92 14 30 07/17/18 07:00 94 16 128/77 100 Mechanical Ventilator 30 07/17/18 06:00 93 17 125/81 100 Mechanical Ventilator 30 95 07/17/18 05:24 95 14 30 07/17/18 05:00 99 13 113/81 99 Mechanical Ventilator 30 95 07/17/18 04:00 Mechanical Ventilator 07/17/18 04:00 30 07/17/18 04:00 97 07/17/18 04:00 98.9 93 14 130/77 100 Mechanical Ventilator 30 96 07/17/18 03:06 92 16 30 07/17/18 03:00 82 15 156/78 100 Mechanical Ventilator 30 95 07/17/18 02:00 87 16 133/75 100 Mechanical Ventilator 30 83 07/17/18 01:14 86 21 30 07/17/18 01:00 79 14 159/85 100 Mechanical Ventilator 30 85 07/17/18 00:00 90 07/17/18 00:00 Mechanical Ventilator 07/17/18 00:00 99.7 90 14 142/77 99 Mechanical Ventilator 30 07/16/18 23:35 81 14 30 07/16/18 23:00 97 14 140/76 99 Mechanical Ventilator 30 07/16/18 22:00 90 14 118/76 99 Mechanical Ventilator 30 07/16/18 21:08 85 24 30 07/16/18 21:00 83 14 140/82 100 Mechanical Ventilator 30 07/16/18 20:00 99.1 90 16 150/84 100 Mechanical Ventilator 07/16/18 20:00 Mechanical Ventilator 07/16/18 20:00 30 07/16/18 19:11 90 14 30 07/16/18 19:00 89 14 116/77 100 Mechanical Ventilator 30 07/16/18 18:42 98.2 07/16/18 18:00 94 14 122/74 100 Mechanical Ventilator 30 07/16/18 17:00 83 14 130/72 100 Mechanical Ventilator 30 07/16/18 16:44 87 14 30 07/16/18 16:00 Mechanical Ventilator 07/16/18 16:00 84 07/16/18 16:00 98.6 89 14 115/70 100 Mechanical Ventilator 30 07/16/18 16:00 30 07/16/18 14:45 88 16 30 07/16/18 14:00 83 14 130/67 100 Mechanical Ventilator 30 07/16/18 13:00 78 14 148/77 100 Mechanical Ventilator 30 07/16/18 12:00 Mechanical Ventilator 07/16/18 12:00 98.4 76 14 136/71 100 Mechanical Ventilator 07/16/18 12:00 30 07/16/18 12:00 78 07/16/18 11:13 78 16 30 07/16/18 11:00 75 14 117/67 100 Mechanical Ventilator 30 07/16/18 11:00 14 Mechanical Ventilator 30 07/16/18 11:00 14 Mechanical Ventilator 30 07/16/18 11:00 14 Mechanical Ventilator 30 07/16/18 10:33 98.4 07/16/18 10:03 15 Mechanical Ventilator 30 07/16/18 10:00 14 Mechanical Ventilator 30 07/16/18 10:00 76 14 138/69 100 Mechanical Ventilator 30 Status: awake Condition: critical HEENT: atraumatic Neck: full ROM Lungs: chest wall tender Heart: HR/BP stable Abdomen: soft, non-tender Extremities: no C/C/E, edema Accucheck: 108 Critical Care - Subjective ROS Limited/Unobtainable: Yes Condition: critical EKG Rhythm: Sinus Rhythm FI02: 30 Vent Support Breath Rate: 14 Vent Support Mode: CPAP Vent Tidal Volume: 600 Sputum Amount: Small PEEP: 5.0 PIP: 13 Tube Feeding Amount: 50 I&O: Intake and Output 07/16/18 07/17/18 19:00 07:00 Intake Total 1296.40 ml 1427.0 ml Output Total 2490 ml 950 ml Balance -1193.60 ml 477.0 ml Intake Free Water 200 ml 20 ml IV Total 926.40 ml 1057.0 ml Tube Feeding 170 ml 350 ml Output Urine Total 2490 ml 950 ml CXR: CT chest done, results pending ET-Tube: 7.0 ET Position: 23 Labs: Laboratory Tests Test 07/16/18 11:26 07/17/18 04:35 07/17/18 08:47 Arterial Blood pH 7.457 (7.350-7.450) 7.480 (7.350-7.450) Arterial Blood Partial Pressure CO2 31.0 mmHg (35.0-45.0) L 31.7 mmHg (35.0-45.0) L Arterial Blood Partial Pressure O2 116.9 mmHg (75.0-100.0) H 125.2 mmHg (75.0-100.0) H Arterial Blood HCO3 21.4 mmol/L (22.0-26.0) L 23.1 mmol/L (22.0-26.0) Arterial Blood Oxygen Saturation 97.9 % (95-100) 98.3 % (95-100) Arterial Blood Base Excess -1.7 (-2-2) 0.2 (-2-2) Sudhakar Test Positive Positive White Blood Count 5.7 K/UL (4.8-10.8) Red Blood Count 3.85 M/UL (4.70-6.10) L Hemoglobin 11.4 G/DL (14.2-18.0) L Hematocrit 34.4 % (42.0-52.0) L Mean Corpuscular Volume 89 FL (80-99) Mean Corpuscular Hemoglobin 29.4 PG (27.0-31.0) Mean Corpuscular Hemoglobin Concent 33.0 G/DL (32.0-36.0) Red Cell Distribution Width 13.4 % (11.6-14.8) Platelet Count 155 K/UL (150-450) Mean Platelet Volume 6.8 FL (6.5-10.1) Neutrophils (%) (Auto) 74.6 % (45.0-75.0) Lymphocytes (%) (Auto) 10.9 % (20.0-45.0) L Monocytes (%) (Auto) 11.7 % (1.0-10.0) H Eosinophils (%) (Auto) 2.2 % (0.0-3.0) Basophils (%) (Auto) 0.6 % (0.0-2.0) Activated Partial Thromboplast Time 58 SEC (23-33) H Sodium Level 141 MMOL/L (136-145) Potassium Level 3.3 MMOL/L (3.5-5.1) L Chloride Level 108 MMOL/L (98-107) H Carbon Dioxide Level 24 MMOL/L (21-32) Anion Gap 9 mmol/L (5-15) Blood Urea Nitrogen 7 mg/dL (7-18) Creatinine 0.9 MG/DL (0.55-1.30) Estimat Glomerular Filtration Rate mL/min (>60) Glucose Level 110 MG/DL (74-106) H Calcium Level 8.8 MG/DL (8.5-10.1) Phosphorus Level 3.4 MG/DL (2.5-4.9) Magnesium Level 1.5 MG/DL (1.8-2.4) L Total Bilirubin 0.6 MG/DL (0.2-1.0) Aspartate Amino Transf (AST/SGOT) 31 U/L (15-37) Alanine Aminotransferase (ALT/SGPT) 85 U/L (12-78) H Alkaline Phosphatase 222 U/L (46-116) H Total Protein 7.0 G/DL (6.4-8.2) Albumin 2.3 G/DL (3.4-5.0) L Globulin 4.7 g/dL Albumin/Globulin Ratio 0.5 (1.0-2.7) L Maria E Shine MD Jul 17, 2018 09:44
--- NOTE | 2018-07-17 10:00 | NUR ---
NURSE NOTES: Oral care and hunter care provided. Patient was turned and repositioned. vss.
--- NOTE | 2018-07-17 10:54 | Infectious Diseases Prog Note ---
Assessment/Plan Assessment/Plan 72 yo male with PMHx of TBI, Seizure disorder, COPD, Encephalopathy, DM, HTN, CVA, Renal failure, CAD and Dysphagia s/p Peg who was brought to the ED on with intractable seizures. Respiratory failure Most probably due to seizures Active PNA unlikely Sputum Cx 07/12/18 - NF Bacteriuria UTI unlikely UCx - Staph h. S/P 2 days Vancomycin DVT right leg On Heparin TBI Seizure disorder COPD Encephalopathy DM HTN CVA Renal failure CAD Dysphagia s/p Peg PLAN - Continue to monitor off abx 07/15/18 S/P Vancomcyin and Zosyn #2 - Supportive care - Monitor CBC and Temps Subjective Allergies: Coded Allergies: HALOPERIDOL (Verified Allergy, Mild, [place] really bad, 07/05/16) Makes him irritable. THIORIDAZINE (Verified Allergy, Mild, [place] really bad, 07/05/16) Makes him violent TRAZODONE (Verified Allergy, Mild, [place] really bad, 07/05/16) Too strong; inability to move. Uncoded Allergies: PSYCHOTROPIC MEDICATION (Allergy, Mild, 08/13/14) Subjective Afebrile On Vent 30% O2 No Leukocytosis Objective Vital Signs Last 24 Hour Vital Signs Date Time Temp Pulse Resp B/P (MAP) Pulse Ox O2 Delivery O2 Flow Rate FiO2 07/17/18 10:40 100 22 30 07/17/18 10:00 98 20 133/79 100 Mechanical Ventilator 30 07/17/18 09:13 100 07/17/18 09:07 86 17 30 07/17/18 09:00 99 16 134/79 100 Mechanical Ventilator 30 07/17/18 09:00 94 07/17/18 08:00 30 07/17/18 08:00 98.3 94 16 135/78 99 Mechanical Ventilator 30 07/17/18 08:00 Mechanical Ventilator 07/17/18 07:02 92 14 30 07/17/18 07:00 94 16 128/77 100 Mechanical Ventilator 30 07/17/18 06:00 93 17 125/81 100 Mechanical Ventilator 30 95 07/17/18 05:24 95 14 30 07/17/18 05:00 99 13 113/81 99 Mechanical Ventilator 30 95 07/17/18 04:00 Mechanical Ventilator 07/17/18 04:00 30 07/17/18 04:00 97 07/17/18 04:00 98.9 93 14 130/77 100 Mechanical Ventilator 30 96 07/17/18 03:06 92 16 30 07/17/18 03:00 82 15 156/78 100 Mechanical Ventilator 30 95 07/17/18 02:00 87 16 133/75 100 Mechanical Ventilator 30 83 07/17/18 01:14 86 21 30 07/17/18 01:00 79 14 159/85 100 Mechanical Ventilator 30 85 07/17/18 00:00 90 07/17/18 00:00 Mechanical Ventilator 07/17/18 00:00 99.7 90 14 142/77 99 Mechanical Ventilator 30 07/16/18 23:35 81 14 30 07/16/18 23:00 97 14 140/76 99 Mechanical Ventilator 30 07/16/18 22:00 90 14 118/76 99 Mechanical Ventilator 30 07/16/18 21:08 85 24 30 07/16/18 21:00 83 14 140/82 100 Mechanical Ventilator 30 07/16/18 20:00 99.1 90 16 150/84 100 Mechanical Ventilator 30 07/16/18 20:00 Mechanical Ventilator 07/16/18 20:00 30 07/16/18 19:11 90 14 30 07/16/18 19:00 89 14 116/77 100 Mechanical Ventilator 30 07/16/18 18:42 98.2 07/16/18 18:00 94 14 122/74 100 Mechanical Ventilator 30 07/16/18 17:00 83 14 130/72 100 Mechanical Ventilator 30 07/16/18 16:44 87 14 30 07/16/18 16:00 Mechanical Ventilator 07/16/18 16:00 84 07/16/18 16:00 98.6 89 14 115/70 100 Mechanical Ventilator 30 07/16/18 16:00 30 07/16/18 14:45 88 16 30 07/16/18 14:00 83 14 130/67 100 Mechanical Ventilator 30 07/16/18 13:00 78 14 148/77 100 Mechanical Ventilator 30 07/16/18 12:00 Mechanical Ventilator 07/16/18 12:00 98.4 76 14 136/71 100 Mechanical Ventilator 30 07/16/18 12:00 30 07/16/18 12:00 78 07/16/18 11:13 78 16 30 07/16/18 11:00 75 14 117/67 100 Mechanical Ventilator 30 07/16/18 11:00 14 Mechanical Ventilator 30 07/16/18 11:00 14 Mechanical Ventilator 30 07/16/18 11:00 14 Mechanical Ventilator 30 Height (Feet): 6 Weight (Pounds): 175 Objective Gen: NAD, Intuabted on vent HEENT: DMM, PERRL LUNGS: CTAB, No W/C CARDS: RRR, S1, S2, ABD: Soft, ND SKIN: Warm/dry, No rashes Laboratory Tests Test 07/16/18 11:26 07/17/18 04:35 07/17/18 08:47 Arterial Blood pH 7.457 (7.350-7.450) 7.480 (7.350-7.450) Arterial Blood Partial Pressure CO2 31.0 mmHg (35.0-45.0) L 31.7 mmHg (35.0-45.0) L Arterial Blood Partial Pressure O2 116.9 mmHg (75.0-100.0) H 125.2 mmHg (75.0-100.0) H Arterial Blood HCO3 21.4 mmol/L (22.0-26.0) L 23.1 mmol/L (22.0-26.0) Arterial Blood Oxygen Saturation 97.9 % (95-100) 98.3 % (95-100) Arterial Blood Base Excess -1.7 (-2-2) 0.2 (-2-2) Sudhakar Test Positive Positive White Blood Count 5.7 K/UL (4.8-10.8) Red Blood Count 3.85 M/UL (4.70-6.10) L Hemoglobin 11.4 G/DL (14.2-18.0) L Hematocrit 34.4 % (42.0-52.0) L Mean Corpuscular Volume 89 FL (80-99) Mean Corpuscular Hemoglobin 29.4 PG (27.0-31.0) Mean Corpuscular Hemoglobin Concent 33.0 G/DL (32.0-36.0) Red Cell Distribution Width 13.4 % (11.6-14.8) Platelet Count 155 K/UL (150-450) Mean Platelet Volume 6.8 FL (6.5-10.1) Neutrophils (%) (Auto) 74.6 % (45.0-75.0) Lymphocytes (%) (Auto) 10.9 % (20.0-45.0) L Monocytes (%) (Auto) 11.7 % (1.0-10.0) H Eosinophils (%) (Auto) 2.2 % (0.0-3.0) Basophils (%) (Auto) 0.6 % (0.0-2.0) Activated Partial Thromboplast Time 58 SEC (23-33) H Sodium Level 141 MMOL/L (136-145) Potassium Level 3.3 MMOL/L (3.5-5.1) L Chloride Level 108 MMOL/L (98-107) H Carbon Dioxide Level 24 MMOL/L (21-32) Anion Gap 9 mmol/L (5-15) Blood Urea Nitrogen 7 mg/dL (7-18) Creatinine 0.9 MG/DL (0.55-1.30) Estimat Glomerular Filtration Rate mL/min (>60) Glucose Level 110 MG/DL (74-106) H Calcium Level 8.8 MG/DL (8.5-10.1) Phosphorus Level 3.4 MG/DL (2.5-4.9) Magnesium Level 1.5 MG/DL (1.8-2.4) L Total Bilirubin 0.6 MG/DL (0.2-1.0) Aspartate Amino Transf (AST/SGOT) 31 U/L (15-37) Alanine Aminotransferase (ALT/SGPT) 85 U/L (12-78) H Alkaline Phosphatase 222 U/L (46-116) H Total Protein 7.0 G/DL (6.4-8.2) Albumin 2.3 G/DL (3.4-5.0) L Globulin 4.7 g/dL Albumin/Globulin Ratio 0.5 (1.0-2.7) L Current Medications Medications (Trade) Dose Ordered Sig/Jesi Route PRN Reason Start Time Stop Time Status Last Admin Dose Admin Albuterol/ Ipratropium (Albuterol/ Ipratropium) 3 ml Q4H PRN HHN sob 07/15/18 09:00 07/20/18 08:59 Chlorhexidine Gluconate (Candie-Hex 2%) 1 applic DAILY@1999 TOPIC 07/16/18 20:00 08/15/18 19:59 07/16/18 19:59 Dextrose (Dextrose 50%) 25 ml Q30M PRN IV Hypoglycemia 07/13/18 01:15 08/12/18 01:14 Dextrose (Dextrose 50%) 50 ml Q30M PRN IV Hypoglycemia 07/13/18 01:15 08/12/18 01:14 Famotidine (Pepcid I.v.) 20 mg Q12HR IVP 07/13/18 09:00 08/12/18 08:59 07/17/18 08:45 Heparin Sodium/ Dextrose 500 ml @ 28.913 mls/ hr ADJUST PER PROTOCOL IV 07/17/18 06:15 08/12/18 19:29 07/17/18 06:26 Insulin Aspart (NovoLOG) EVERY 6 HOURS SUBQ 07/14/18 00:00 08/12/18 12:29 Levetiracetam 100 ml @ 400 mls/hr Q12H IVPB 07/14/18 21:15 08/13/18 21:14 07/17/18 08:45 Levetiracetam 100 ml @ 400 mls/hr Q12HR IVPB 07/14/18 21:00 08/13/18 20:59 07/17/18 08:45 Lorazepam (Ativan 2mg/ml 1ml) 2 mg Q4H PRN IV For Anxiety 07/13/18 11:45 07/20/18 11:44 07/16/18 18:12 Magnesium Sulfate 100 ml @ 100 mls/hr Q1H IVPB 07/17/18 12:45 07/17/18 14:44 Morphine Sulfate (Morphine Sulfate) 4 mg Q4H PRN IVP For Pain 07/13/18 12:00 07/20/18 11:59 07/16/18 18:12 Potassium Chloride (K-Dur) 40 meq ONCE ORAL 07/17/18 12:30 07/17/18 13:30 Valproate Sodium 1000 mg/Dextrose 65 ml @ 32.5 mls/hr Q12HR@0100,1300 IV 07/14/18 13:00 08/13/18 12:59 07/17/18 01:17 Matteo Hunt MD Jul 17, 2018 10:54
--- NOTE | 2018-07-17 11:57 | Diagnostic Imaging Report ---
Indication: Dyspnea Technique: One view of the chest Comparison: 07/16/2018 Findings: Stable satisfactory positions of endotracheal and nasogastric tubes. The heart size is normal. Previously demonstrated right perihilar opacity is again demonstrated. Mild interstitial congestive changes are stable. Findings are unchanged Impression: Unchanged, over one day, findings as above.
--- NOTE | 2018-07-17 12:00 | NUR ---
NURSE NOTES: Sims cath draining jolly urine by gravity. Suctioned, pickish secretion noted. sputum sent for cx.
--- NOTE | 2018-07-17 12:30 | NUR ---
NURSE NOTES: Patient able to tolerate weaning, CPAP PS 8 for 3.5hrs. Back to AC mode.
[2018-07-17] MEDS ORDERED: Heparin 25,000u/D5W 500ml 500 ML IV SCH (14:00)
--- NOTE | 2018-07-17 14:00 | NUR ---
NURSE NOTES: Patient is awake, opens eyes spontaneously, able to follow simple commands. Patient tolerating tube feeding, HOB kept elevated. PICC line dressing clean and dry.
--- NOTE | 2018-07-17 14:33 | NUR ---
Social Service Note SW following up on locating next of kin or an emergency contact. Message left for Freya Orellana [phone] STEPHANIE to determine patient's Elizabeth Porras's capacity to be involved with the plan of care of patient. No return call at this time. Follow up calls placed to Giovanny Mahajan noted patient's brother at [facility] [phone] continue to be out of service. STEPHANIE spoke with a woman at [phone] who states she doesn't know an Giovanny Beck or Min Vern. She states she has had this phone number for 15 years. Also she stated she has spoken to patient several times explaining that this number isn't associated with Giovanny Beck. STEPHANIE completed a skip trace and was unable to locate next of kin. Bioethics available if required. to provide consents at this time. Will continue to monitor.
[2018-07-17] MEDS: LORazepam Inj 2mg/ml 1ml IV PRN (15:57)
--- NOTE | 2018-07-17 16:00 | NUR ---
NURSE NOTES: Patient was awake, confused, restless and tried to get out bed. PRN Ativan given. VSS.
--- NOTE | 2018-07-17 17:49 | NUR ---
NURSE NOTES: Patient had soft brown BMx1. Patient kept clean and dry. Patient was turned and repositioned. Tolerating tube feeding, HOB kept elevated.
--- NOTE | 2018-07-17 18:41 | Internal Med Progress Note ---
Subjective Date of Service: Jul 17, 2018 Physician Name Michael Rojo Attending Physician Will Mejía MD Current Medications Medications (Trade) Dose Ordered Sig/Jesi Route PRN Reason Start Time Stop Time Status Last Admin Dose Admin Albuterol/ Ipratropium (Albuterol/ Ipratropium) 3 ml Q4H PRN HHN sob 07/15/18 09:00 07/20/18 08:59 Chlorhexidine Gluconate (Candie-Hex 2%) 1 applic DAILY@2000 TOPIC 07/16/18 20:00 08/15/18 19:59 07/16/18 19:59 Dextrose (Dextrose 50%) 25 ml Q30M PRN IV Hypoglycemia 07/13/18 01:15 08/12/18 01:14 Dextrose (Dextrose 50%) 50 ml Q30M PRN IV Hypoglycemia 07/13/18 01:15 08/12/18 01:14 Famotidine (Pepcid I.v.) 20 mg Q12HR IVP 07/13/18 09:00 08/12/18 08:59 07/17/18 08:45 Heparin Sodium/ Dextrose 500 ml @ 32.126 mls/ hr ADJUST PER PROTOCOL IV 07/17/18 14:00 08/16/18 13:59 07/17/18 13:52 Insulin Aspart (NovoLOG) EVERY 6 HOURS SUBQ 07/14/18 00:00 08/12/18 12:29 Levetiracetam 100 ml @ 400 mls/hr Q12H IVPB 07/14/18 21:15 08/13/18 21:14 07/17/18 08:45 Levetiracetam 100 ml @ 400 mls/hr Q12HR IVPB 07/14/18 21:00 08/13/18 20:59 07/17/18 08:45 Lorazepam (Ativan 2mg/ml 1ml) 2 mg Q4H PRN IV For Anxiety 07/13/18 11:45 07/20/18 11:44 07/17/18 15:57 Morphine Sulfate (Morphine Sulfate) 4 mg Q4H PRN IVP For Pain 07/13/18 12:00 07/20/18 11:59 07/16/18 18:12 Valproate Sodium 1000 mg/Dextrose 65 ml @ 32.5 mls/hr Q12HR@0100,1300 IV 07/14/18 13:00 08/13/18 12:59 07/17/18 12:23 Allergies: Coded Allergies: HALOPERIDOL (Verified Allergy, Mild, [place] really bad, 07/05/16) Makes him irritable. THIORIDAZINE (Verified Allergy, Mild, [place] really bad, 07/05/16) Makes him violent TRAZODONE (Verified Allergy, Mild, [place] really bad, 07/05/16) Too strong; inability to move. Uncoded Allergies: PSYCHOTROPIC MEDICATION (Allergy, Mild, 08/13/14) ROS Limited/Unobtainable: Yes Subjective 72 YO M admitted with breakthrough seizure. Now respiratory failure. Intubated and sedated. Cover for Int Med-Dr Mejía. ICU Objective Last Vital Signs Date Time Temp Pulse Resp B/P (MAP) Pulse Ox O2 Delivery O2 Flow Rate FiO2 07/17/18 18:00 97 15 119/79 100 Mechanical Ventilator 30 07/17/18 16:00 98.5 Laboratory Tests Test 07/17/18 04:35 07/17/18 08:47 07/17/18 12:35 White Blood Count 5.7 K/UL (4.8-10.8) Red Blood Count 3.85 M/UL (4.70-6.10) L Hemoglobin 11.4 G/DL (14.2-18.0) L Hematocrit 34.4 % (42.0-52.0) L Mean Corpuscular Volume 89 FL (80-99) Mean Corpuscular Hemoglobin 29.4 PG (27.0-31.0) Mean Corpuscular Hemoglobin Concent 33.0 G/DL (32.0-36.0) Red Cell Distribution Width 13.4 % (11.6-14.8) Platelet Count 155 K/UL (150-450) Mean Platelet Volume 6.8 FL (6.5-10.1) Neutrophils (%) (Auto) 74.6 % (45.0-75.0) Lymphocytes (%) (Auto) 10.9 % (20.0-45.0) L Monocytes (%) (Auto) 11.7 % (1.0-10.0) H Eosinophils (%) (Auto) 2.2 % (0.0-3.0) Basophils (%) (Auto) 0.6 % (0.0-2.0) Activated Partial Thromboplast Time 58 SEC (23-33) H 51 SEC (23-33) H Sodium Level 141 MMOL/L (136-145) Potassium Level 3.3 MMOL/L (3.5-5.1) L Chloride Level 108 MMOL/L (98-107) H Carbon Dioxide Level 24 MMOL/L (21-32) Anion Gap 9 mmol/L (5-15) Blood Urea Nitrogen 7 mg/dL (7-18) Creatinine 0.9 MG/DL (0.55-1.30) Estimat Glomerular Filtration Rate mL/min (>60) Glucose Level 110 MG/DL (74-106) H Calcium Level 8.8 MG/DL (8.5-10.1) Phosphorus Level 3.4 MG/DL (2.5-4.9) Magnesium Level 1.5 MG/DL (1.8-2.4) L Total Bilirubin 0.6 MG/DL (0.2-1.0) Aspartate Amino Transf (AST/SGOT) 31 U/L (15-37) Alanine Aminotransferase (ALT/SGPT) 85 U/L (12-78) H Alkaline Phosphatase 222 U/L (46-116) H Total Protein 7.0 G/DL (6.4-8.2) Albumin 2.3 G/DL (3.4-5.0) L Globulin 4.7 g/dL Albumin/Globulin Ratio 0.5 (1.0-2.7) L Arterial Blood pH 7.480 (7.350-7.450) Arterial Blood Partial Pressure CO2 31.7 mmHg (35.0-45.0) L Arterial Blood Partial Pressure O2 125.2 mmHg (75.0-100.0) H Arterial Blood HCO3 23.1 mmol/L (22.0-26.0) Arterial Blood Oxygen Saturation 98.3 % (95-100) Arterial Blood Base Excess 0.2 (-2-2) Sudhakar Test Positive Intake and Output 07/16/18 07/17/18 18:59 06:59 Intake Total 1387.40 ml 1422.7 ml Output Total 2380 ml 1050 ml Balance -992.60 ml 372.7 ml Intake Free Water 200 ml 20 ml IV Total 1037.40 ml 1082.7 ml Tube Feeding 150 ml 320 ml Output Urine Total 2380 ml 1050 ml Objective PHYSICAL EXAMINATION: GENERAL: The patient is a thin-appearing male, in no apparent distress. The patient is intubated and sedated. HEENT: Eyes, pupils are equal and responsive to light and accommodation. Extraocular movements are intact. NECK: Supple. No lymphadenopathy. CHEST: Mech vent; Few expiratory wheezes bilaterally. Otherwise, without crackles or rales. CARDIOVASCULAR: Tachycardic, regular rate. S1 and S2 are normal without murmurs, rubs, or gallops. ABDOMEN: Soft, nontender, and nondistended. Positive bowel sounds. No evidence of hepatosplenomegaly. Currently, no rebound or guarding noted. EXTREMITIES: Negative for clubbing, cyanosis, or edema. RECTAL/GENITAL: Not performed. NEUROLOGICALLY: Unable to assess secondary to the patient's mental status. Assessment/Plan Assessment/Plan ASSESSMENT: This is a 72-year-old male. 1. Intractable seizures. 2. Respiratory failure. 3. Probable pneumonia of the right upper lobe. 4. History of seizure disorder. 5. Chronic obstructive pulmonary disease. 6. Diabetes type 2. 7. Hypertension. 8. Metabolic encephalopathy. 9. Chronic obstructive pulmonary disease. 10. Chronic renal failure. 11. Traumatic brain injury. 12. Gastroesophageal reflux disease. 13. Coronary artery disease. 14. Anemia. 15. History of gastrointestinal hemorrhage. 16. Hypercholesteremia. 17. Cerebrovascular disease, status post cerebrovascular accident. 18. Dysphagia. 19. Prostate cancer with mets 20. UTI=staph haemolyticus TREATMENT: 1. Intractable seizure. A Neurology consultation has been obtained. The patient has been started on Ativan intravenously. We will follow recommendations of Neurology. Continue Keppra, Dilantin, and Depakote as above. 2. Respiratory failure. Pulmonary consultation has been obtained with Dr. Maria E Shine. The patient is currently intubated in the intensive care unit. We will follow recommendations of Pulmonary. 3. Chronic obstructive pulmonary disease. As above, a Pulmonary consultation has been obtained with Dr. Maria E Shine. 4. Diabetes type 2. The patient has been placed on a NovoLog sliding scale. 5. Hypertension. The patient is currently hypotensive. 6. Metabolic encephalopathy. 7. Renal failure. 8. Traumatic brain injury. 9. Gastroesophageal reflux disease. 10. Coronary artery disease. 11. Anemia. 12. Gastrointestinal hemorrhage. 13. Hypercholesterolemia. 14. Cerebrovascular disease. 15. Dysphagia, status post PEG placement. 16. D/C vanco for staph UTI; D/C zosyn for peumonia-await urine and sputum cultures per ID 17. ID consult=Michael Land MD Jul 17, 2018 18:41
--- NOTE | 2018-07-17 19:29 | NUR ---
HAND-OFF: Report given to RONI Irizarry.
--- NOTE | 2018-07-17 19:30 | NUR ---
NURSE NOTES: Endorsement received from Love Asif RN. Patient opens eyes spontaneously. Orally intubated with ET 7.0, 23 lipline. AC 14, 600, 30% FiO2, PEEP 5. NGT at right nare. Patent and intact. Rechecked placement per auscultation. Receiving Glucerna 1.5 at 50ml/hr. No residual. Sims catheter draining to urimeter. Left upper arm PICC. On heparin drip 20 units/kg/hr. Bilateral soft wrist restraints present for attempting to pull out tubes. Bilateral heels off loaded. Seizure precautions. Head of bed elevated. Bed locked and in low position. Bed alarm on.
[2018-07-17] MEDS: Dyna-Hex 2% Top Sol 2oz TOPIC SCH (20:25)
--- NOTE | 2018-07-17 21:18 | NUR ---
NURSE NOTES: PTT results available. Heparin on hold for 30 minutes. Restarted at 17units/kg/hr and next PTT at 0320H.
[2018-07-17] MEDS: Morphine Sulfate 4mg/ml Inj (IV USE ONLY) IVP PRN (21:29)
--- NOTE | 2018-07-17 21:29 | NUR ---
NURSE NOTES: Patient awake, restless and keeps on shifting positions. Repositioned for comfort. PRN morphine given
--- NOTE | 2018-07-17 23:00 | NUR ---
NURSE NOTES: Patient asleep at this time. No signs of pain or discomfort.
--- NOTE | 2018-07-17 23:52 | Neurology Progress Note ---
Interim History Interim History ROS Limited/Unobtainable: Yes Complaints: AMS Events: Remains intubated in ICU Interim History No significant changes in MS. Visit performed on July 17, [address] Iniguez. Objective Physical Exam Last Vital Signs Date Time Temp Pulse Resp B/P (MAP) Pulse Ox O2 Delivery O2 Flow Rate FiO2 07/17/18 23:00 81 14 130/76 100 Mechanical Ventilator 30 07/17/18 22:31 98.5 Laboratory Tests Test 07/17/18 04:35 07/17/18 08:47 07/17/18 12:35 07/17/18 19:50 White Blood Count 5.7 K/UL (4.8-10.8) Red Blood Count 3.85 M/UL (4.70-6.10) L Hemoglobin 11.4 G/DL (14.2-18.0) L Hematocrit 34.4 % (42.0-52.0) L Mean Corpuscular Volume 89 FL (80-99) Mean Corpuscular Hemoglobin 29.4 PG (27.0-31.0) Mean Corpuscular Hemoglobin Concent 33.0 G/DL (32.0-36.0) Red Cell Distribution Width 13.4 % (11.6-14.8) Platelet Count 155 K/UL (150-450) Mean Platelet Volume 6.8 FL (6.5-10.1) Neutrophils (%) (Auto) 74.6 % (45.0-75.0) Lymphocytes (%) (Auto) 10.9 % (20.0-45.0) L Monocytes (%) (Auto) 11.7 % (1.0-10.0) H Eosinophils (%) (Auto) 2.2 % (0.0-3.0) Basophils (%) (Auto) 0.6 % (0.0-2.0) Activated Partial Thromboplast Time 58 SEC (23-33) H 51 SEC (23-33) H 109 SEC (23-33) H Sodium Level 141 MMOL/L (136-145) Potassium Level 3.3 MMOL/L (3.5-5.1) L Chloride Level 108 MMOL/L (98-107) H Carbon Dioxide Level 24 MMOL/L (21-32) Anion Gap 9 mmol/L (5-15) Blood Urea Nitrogen 7 mg/dL (7-18) Creatinine 0.9 MG/DL (0.55-1.30) Estimat Glomerular Filtration Rate mL/min (>60) Glucose Level 110 MG/DL (74-106) H Calcium Level 8.8 MG/DL (8.5-10.1) Phosphorus Level 3.4 MG/DL (2.5-4.9) Magnesium Level 1.5 MG/DL (1.8-2.4) L Total Bilirubin 0.6 MG/DL (0.2-1.0) Aspartate Amino Transf (AST/SGOT) 31 U/L (15-37) Alanine Aminotransferase (ALT/SGPT) 85 U/L (12-78) H Alkaline Phosphatase 222 U/L (46-116) H Total Protein 7.0 G/DL (6.4-8.2) Albumin 2.3 G/DL (3.4-5.0) L Globulin 4.7 g/dL Albumin/Globulin Ratio 0.5 (1.0-2.7) L Arterial Blood pH 7.480 (7.350-7.450) Arterial Blood Partial Pressure CO2 31.7 mmHg (35.0-45.0) L Arterial Blood Partial Pressure O2 125.2 mmHg (75.0-100.0) H Arterial Blood HCO3 23.1 mmol/L (22.0-26.0) Arterial Blood Oxygen Saturation 98.3 % (95-100) Arterial Blood Base Excess 0.2 (-2-2) Sudhakar Test Positive General: well developed, well nourished Head: normocophalic Neck: no rigidity EENT: benign Neurologic Exam Mental Status: other Speech: other Language: other Cranial Nerve II: fundus normal, visual dodd, no papilledema Cranial Nerves III, IV, : EOMI Cranial Nerve V: other Cranial Nerve VII: no facial asymmetry Cranial Nerve VIII: no nystagmus Cranial Nerve IX: gag response Cranial Nerve XI: other Cranial Nerve XII: other Motor System: normal muscle tone, no involuntary movement, no muscle wasting Sensory: other Coordination: other Deep Tendon Reflexes: 0 bicep (R), 0 tricep (R), 0 knee (R), 0 ankle (R); 1+ bicep (L), 1+ tricep (L), 1+ brachioradialis (L), 1+ knee (L), 1+ ankle (L) Reflexes: flexor plantar (L), flexor plantar (R); extensor plantar (L), extensor plantar (R) Objective Patient is intubated and does not open eyes to voice - he KAT x4 spontaneously - does not follow commands - W/D to noxious stimuli x 4- Pupils are briskly reactive and PERRL - His exam is non focal Impression/Recommendations Problems: (1) Acute metabolic encephalopathy (2) Acute encephalopathy (3) Drug abuse (4) COPD (chronic obstructive pulmonary disease) (5) Diabetes mellitus (6) Anemia (7) Acute respiratory failure (8) Seizure disorder (9) UTI (urinary tract infection) (10) Prostate cancer, primary, 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 site (11) Iron deficiency anemia (12) Acute renal failure (ARF) Status: stable Recommendations Abx as per ID EEG Done today Valproate 1000mg BID added to regimen for seizure control May continue with Ativan 1mg as eeded for seizure Kenia Pompa N.P. Jul 17, 2018 23:52
[2018-07-18] VITALS (24 sets, daily range): BP systolic 103–179; BP diastolic 50–104
[2018-07-18] MEDS: Valproate Sodium INJ 1,000 MG in D5W 55 ML IV SCH ×2 (00:18→14:12)
--- NOTE | 2018-07-18 01:00 | NUR ---
NURSE NOTES: Tolerating feeding. No signs of any bleeding. Clear secretions form mouth and ET. HOB kept elevated. No seizure activity
--- NOTE | 2018-07-18 02:00 | NUR ---
NURSE NOTES: Sleeping. Vital signs stable.
[2018-07-18] MEDS: Morphine Sulfate 4mg/ml Inj (IV USE ONLY) IVP PRN (02:49)
--- NOTE | 2018-07-18 04:00 | NUR ---
NURSE NOTES: Bed bath, oral care, change of linens done.
[2018-07-18] MEDS: Heparin 25,000u/D5W 500ml 500 ML IV SCH (04:11)
[2018-07-18 04:28] LABS: HEMOGLOBIN 9.9 G/DL (14.2-18.0); RED BLOOD COUNT 3.34 M/UL (4.70-6.10); WHITE BLOOD COUNT 4.6 K/UL (4.8-10.8)
[2018-07-18 04:29] LABS: BASOPHILS % (AUTO) 0.6 % (0.0-2.0); MEAN CORPUSCULAR VOLUME 90 FL (80-99); MONOCYTES % (AUTO) 16.6 % (1.0-10.0); NEUTROPHILS % (AUTO) 64.9 % (45.0-75.0); PLATELET COUNT 168 K/UL (150-450); RED CELL DISTRIBUTION WIDTH 13.4 % (11.6-14.8)
[2018-07-18 05:01] LABS: ALANINE AMINOTRANSFERASE 70 U/L (12-78); ALBUMIN 2.2 G/DL (3.4-5.0); ALBUMIN/GLOBULIN RATIO 0.5 (1.0-2.7); ALKALINE PHOSPHATASE 225 U/L (46-116); ANION GAP 7 mmol/L (5-15); ASPARTATE AMINO TRANSFERASE 33 U/L (15-37); BILIRUBIN,TOTAL 0.4 MG/DL (0.2-1.0); BLOOD UREA NITROGEN 10 mg/dL (7-18); CALCIUM 8.9 MG/DL (8.5-10.1); CARBON DIOXIDE 26 MMOL/L (21-32); CHLORIDE 110 MMOL/L (98-107); CREATININE 0.8 MG/DL (0.55-1.30); PHOSPHORUS 2.8 MG/DL (2.5-4.9); POTASSIUM 3.5 MMOL/L (3.5-5.1); SODIUM 143 MMOL/L (136-145)
[2018-07-18] MEDS ORDERED: Heparin 25,000u/D5W 500ml 500 ML IV SCH ×4 (05:15→20:40)
[2018-07-18] MEDS ORDERED: Heparin 5000 units/ml inj IV ONE (05:15)
--- NOTE | 2018-07-18 05:47 | NUR ---
NURSE NOTES: PTT results available. Bolus dose given, increased rate to 19 units/kg/hr as ordered. Unable to scan barcode at this time due to sheet fed printer malfunction. RN lathing supervisor, charge nurse aware. PTT at 1145H ordered.
[2018-07-18] MEDS: NovoLOG Insulin Flexpen SUBQ SCH ×4 (05:59→18:00)
--- NOTE | 2018-07-18 07:43 | NUR ---
HAND-OFF: Report given to RONI Soliz per SBAR.
--- NOTE | 2018-07-18 07:52 | NUR ---
RESPIRATORY NOTE: Received patient on ordered vent settings. Airway is patent and secured. Suctioned patient prn. Vent alarms are on and audible. Vent is plugged into red outlet. BVM at bedside. Will monitor patient progress.
--- NOTE | 2018-07-18 08:00 | NUR ---
NURSE NOTES: REC,D BED SIDE REPORT FROM [employer] INSPECTOR SOLDERING STAFF.PT RECEIVED WITH HOB ELEVATED 45 DEGREE ,OPENS EYES SPONTANEOUSLY, ORAL INTUBATED WITH ET 7.0, 23 LIPLINE .PT TOLERATING WELL CURRENTS VENT SETTINGS AC=14,TV 600,FIO2 30%,PEEP 5.RENDERED ORAL CARE AND SX,D MOD AMT OF PALE YELLOWISH SECRETIONS.KAMILLA WITH PICC-LINE PATENT CONNECTED TO HEPARIN DRIP 19UNITS/KG/HRS INFUSING WELL. PT WITH BILAT SOFT WRIST RESTRAINTS IN PLACE RELEASED AND PROVIDE PROM TO UPPER EXT,S AND REPOSITIONED IN BED TO PROVIDE COMFORT AND TO PREVENT SKIN BREAK DOWN.PT RECEIVING GLUCERNA 1.2 @ 50ML/HRS CONNECTED TO GTF, TOLERATING WELL ,NO RESIDUAL NOTED AT THIS TIME.BED LOCKED & IN LOW POSITION AND BED ARM ON. WILL CONT TO MONITOR.
--- NOTE | 2018-07-18 08:22 | NUR ---
NURSE NOTES: Still trying to obtain ABG from patient, difficult to obtain. Addendum: 07/18/18 at 1751 by Martínez Vidales RN wrong patient charting
[2018-07-18] MEDS: levETIRAcetam 500mg/NS100ml IVPB SCH ×2 (09:12→20:50)
--- NOTE | 2018-07-18 09:21 | NUR ---
RADIOLOGY DEPT., CHEST X-RAY DONE.-P.DYE
[2018-07-18] MEDS: levETIRAcetam 1,000mg/NS100ml IVPB SCH ×2 (09:23→20:49)
--- NOTE | 2018-07-18 10:22 | Pulmonolgy Critical Care Note ---
Critical Care - Asmt/Plan Problems: (1) Acute metabolic encephalopathy (2) Acute respiratory failure (3) Seizure disorder (4) COPD (chronic obstructive pulmonary disease) (5) Diabetes mellitus (6) Prostate cancer, primary, 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 site (7) Chronic low back pain Respiratory: monitor respiratory rate Renal: check electrolytes Infectious Disease: check cultures Gastrointestinal: continue feedings/current rate Endocrine: monitor blood sugar Hematologic: monitor H/H Neurologic: PRN Morphine Prophylaxis: Protonix Notes Reviewed: cardio, renal Discussed with: nurses, consultants, adult protective caseworkersystems analysis manager - Objective Last 24 Hour Vital Signs Date Time Temp Pulse Resp B/P (MAP) Pulse Ox O2 Delivery O2 Flow Rate FiO2 07/18/18 08:20 30 07/18/18 08:00 83 14 103/70 100 Mechanical Ventilator 30 07/18/18 07:51 75 8 30 30 07/18/18 07:00 98.9 82 15 132/92 100 Mechanical Ventilator 30 07/18/18 06:00 79 15 139/86 100 Mechanical Ventilator 30 07/18/18 05:01 85 14 30 30 07/18/18 05:00 85 12 115/50 100 Mechanical Ventilator 30 07/18/18 04:09 97.9 07/18/18 04:00 Mechanical Ventilator 07/18/18 04:00 97.8 79 14 108/73 100 Mechanical Ventilator 30 07/18/18 04:00 81 07/18/18 04:00 30 07/18/18 03:00 82 14 118/71 100 Mechanical Ventilator 30 07/18/18 02:56 79 14 30 30 07/18/18 02:00 83 14 123/82 100 Mechanical Ventilator 30 07/18/18 01:00 91 21 143/104 100 Mechanical Ventilator 30 07/18/18 00:50 74 14 30 30 07/18/18 00:50 74 14 100 Mechanical Ventilator 30 07/18/18 00:00 Mechanical Ventilator 07/18/18 00:00 30 07/18/18 00:00 80 07/18/18 00:00 97.9 73 14 115/72 100 Mechanical Ventilator 30 07/17/18 23:00 81 14 130/76 100 Mechanical Ventilator 30 07/17/18 22:43 81 15 30 30 07/17/18 22:00 82 14 122/75 100 Mechanical Ventilator 30 07/17/18 21:00 87 14 123/74 100 Mechanical Ventilator 30 07/17/18 20:58 89 15 30 30 07/17/18 20:00 89 07/17/18 20:00 Mechanical Ventilator 07/17/18 20:00 30 07/17/18 20:00 97.9 87 14 126/83 100 Mechanical Ventilator 30 07/17/18 19:00 99 16 143/78 100 Mechanical Ventilator 30 07/17/18 19:00 90 15 30 30 07/17/18 18:00 97 15 119/79 100 Mechanical Ventilator 30 07/17/18 17:00 94 15 126/76 100 Mechanical Ventilator 30 07/17/18 16:46 96 15 30 07/17/18 16:00 30 07/17/18 16:00 99 07/17/18 16:00 98.5 98 15 121/74 100 Mechanical Ventilator 30 07/17/18 16:00 Mechanical Ventilator 07/17/18 15:00 97 14 129/82 100 Mechanical Ventilator 30 07/17/18 14:54 98 16 30 07/17/18 14:00 104 14 134/80 100 Mechanical Ventilator 30 07/17/18 13:00 108 22 147/100 100 Mechanical Ventilator 30 07/17/18 12:35 101 20 30 07/17/18 12:00 99 07/17/18 12:00 Mechanical Ventilator 07/17/18 12:00 30 07/17/18 12:00 98.6 102 19 132/79 100 Mechanical Ventilator 30 07/17/18 11:00 100 20 137/73 100 Mechanical Ventilator 30 07/17/18 10:40 100 22 30 Status: awake Condition: critical HEENT: atraumatic Lungs: clear Heart: HR/BP stable, regular Abdomen: non-tender Extremities: no C/C/E Decubiti: location Accucheck: 90 Critical Care - Subjective ROS Limited/Unobtainable: Yes Interval Events: awake, comfortable Condition: critical FI02: 30 Vent Support Breath Rate: 14 Vent Support Mode: AC Vent Tidal Volume: 600 Sputum Amount: Scant PEEP: 5.0 PIP: 16 Tube Feeding Amount: 50 I&O: Intake and Output 07/17/18 07/18/18 19:00 07:00 Intake Total 2054.084 ml 991.535 ml Output Total 615 ml 825 ml Balance 1439.084 ml 166.535 ml Intake Free Water 80 ml 90 ml IV Total 1374.084 ml 301.535 ml Tube Feeding 600 ml 600 ml Output Urine Total 615 ml 825 ml # Bowel Movements 2 CXR: no change ET-Tube: 7.0 ET Position: 23 Labs: Laboratory Tests Test 07/17/18 12:35 07/17/18 19:50 07/18/18 03:15 07/18/18 08:40 Activated Partial Thromboplast Time 51 SEC (23-33) H 109 SEC (23-33) H 59 SEC (23-33) H White Blood Count 4.6 K/UL (4.8-10.8) L Red Blood Count 3.34 M/UL (4.70-6.10) L Hemoglobin 9.9 G/DL (14.2-18.0) L Hematocrit 30.0 % (42.0-52.0) L Mean Corpuscular Volume 90 FL (80-99) Mean Corpuscular Hemoglobin 29.6 PG (27.0-31.0) Mean Corpuscular Hemoglobin Concent 33.0 G/DL (32.0-36.0) Red Cell Distribution Width 13.4 % (11.6-14.8) Platelet Count 168 K/UL (150-450) Mean Platelet Volume 7.3 FL (6.5-10.1) Neutrophils (%) (Auto) 64.9 % (45.0-75.0) Lymphocytes (%) (Auto) 15.0 % (20.0-45.0) L Monocytes (%) (Auto) 16.6 % (1.0-10.0) H Eosinophils (%) (Auto) 3.0 % (0.0-3.0) Basophils (%) (Auto) 0.6 % (0.0-2.0) Sodium Level 143 MMOL/L (136-145) Potassium Level 3.5 MMOL/L (3.5-5.1) Chloride Level 110 MMOL/L (98-107) H Carbon Dioxide Level 26 MMOL/L (21-32) Anion Gap 7 mmol/L (5-15) Blood Urea Nitrogen 10 mg/dL (7-18) Creatinine 0.8 MG/DL (0.55-1.30) Estimat Glomerular Filtration Rate mL/min (>60) Glucose Level 108 MG/DL (74-106) H Calcium Level 8.9 MG/DL (8.5-10.1) Phosphorus Level 2.8 MG/DL (2.5-4.9) Magnesium Level 2.0 MG/DL (1.8-2.4) Total Bilirubin 0.4 MG/DL (0.2-1.0) Aspartate Amino Transf (AST/SGOT) 33 U/L (15-37) Alanine Aminotransferase (ALT/SGPT) 70 U/L (12-78) Alkaline Phosphatase 225 U/L (46-116) H Total Protein 6.6 G/DL (6.4-8.2) Albumin 2.2 G/DL (3.4-5.0) L Globulin 4.4 g/dL Albumin/Globulin Ratio 0.5 (1.0-2.7) L Arterial Blood pH 7.478 (7.350-7.450) Arterial Blood Partial Pressure CO2 35.4 mmHg (35.0-45.0) Arterial Blood Partial Pressure O2 140.2 mmHg (75.0-100.0) H Arterial Blood HCO3 25.7 mmol/L (22.0-26.0) Arterial Blood Oxygen Saturation 98.5 % (95-100) Arterial Blood Base Excess 2.3 (-2-2) H Sudhakar Test Positive Maira E Shine MD Jul 18, 2018 10:22
--- NOTE | 2018-07-18 11:34 | Internal Med Progress Note ---
Subjective Date of Service: Jul 18, 2018 Physician Name Michael Rojo Attending Physician Will Mejía MD Current Medications Medications (Trade) Dose Ordered Sig/Jesi Route PRN Reason Start Time Stop Time Status Last Admin Dose Admin Albuterol/ Ipratropium (Albuterol/ Ipratropium) 3 ml Q4H PRN HHN sob 07/15/18 09:00 07/20/18 08:59 Chlorhexidine Gluconate (Cadnie-Hex 2%) 1 applic DAILY@2000 TOPIC 07/16/18 20:00 08/15/18 19:59 07/17/18 20:25 Dextrose (Dextrose 50%) 25 ml Q30M PRN IV Hypoglycemia 07/13/18 01:15 08/12/18 01:14 Dextrose (Dextrose 50%) 50 ml Q30M PRN IV Hypoglycemia 07/13/18 01:15 08/12/18 01:14 Famotidine (Pepcid I.v.) 20 mg Q12HR IVP 07/13/18 09:00 08/12/18 08:59 07/18/18 09:12 Heparin Sodium/ Dextrose 500 ml @ 30.218 mls/ hr ADJUST PER PROTOCOL IV 07/18/18 09:15 08/17/18 05:14 07/18/18 09:37 Insulin Aspart (NovoLOG) EVERY 6 HOURS SUBQ 07/14/18 00:00 08/12/18 12:29 Levetiracetam 100 ml @ 400 mls/hr Q12H IVPB 07/14/18 21:15 08/13/18 21:14 07/18/18 09:12 Levetiracetam 100 ml @ 400 mls/hr Q12HR IVPB 07/14/18 21:00 08/13/18 20:59 07/18/18 09:23 Lorazepam (Ativan 2mg/ml 1ml) 2 mg Q4H PRN IV For Anxiety 07/13/18 11:45 07/20/18 11:44 07/17/18 15:57 Morphine Sulfate (Morphine Sulfate) 4 mg Q4H PRN IVP For Pain 07/13/18 12:00 07/20/18 11:59 07/18/18 02:49 Valproate Sodium 1000 mg/Dextrose 65 ml @ 32.5 mls/hr Q12HR@0100,1300 IV 07/14/18 13:00 08/13/18 12:59 07/18/18 00:18 Allergies: Coded Allergies: HALOPERIDOL (Verified Allergy, Mild, Gooding really bad, 07/05/16) Makes him irritable. THIORIDAZINE (Verified Allergy, Mild, Gooding really bad, 07/05/16) Makes him violent TRAZODONE (Verified Allergy, Mild, Gooding really bad, 07/05/16) Too strong; inability to move. Uncoded Allergies: PSYCHOTROPIC MEDICATION (Allergy, Mild, 08/13/14) ROS Limited/Unobtainable: Yes Subjective 72 YO M admitted with breakthrough seizure. Now respiratory failure. Intubated and sedated. Cover for Int Med-Dr Mejía. ICU Objective Last Vital Signs Date Time Temp Pulse Resp B/P (MAP) Pulse Ox O2 Delivery O2 Flow Rate FiO2 07/18/18 09:13 100 07/18/18 09:13 81 14 30 07/18/18 08:00 103/70 Mechanical Ventilator 07/18/18 07:00 98.9 Laboratory Tests Test 07/17/18 12:35 07/17/18 19:50 07/18/18 03:15 07/18/18 08:40 Activated Partial Thromboplast Time 51 SEC (23-33) H 109 SEC (23-33) H 59 SEC (23-33) H White Blood Count 4.6 K/UL (4.8-10.8) L Red Blood Count 3.34 M/UL (4.70-6.10) L Hemoglobin 9.9 G/DL (14.2-18.0) L Hematocrit 30.0 % (42.0-52.0) L Mean Corpuscular Volume 90 FL (80-99) Mean Corpuscular Hemoglobin 29.6 PG (27.0-31.0) Mean Corpuscular Hemoglobin Concent 33.0 G/DL (32.0-36.0) Red Cell Distribution Width 13.4 % (11.6-14.8) Platelet Count 168 K/UL (150-450) Mean Platelet Volume 7.3 FL (6.5-10.1) Neutrophils (%) (Auto) 64.9 % (45.0-75.0) Lymphocytes (%) (Auto) 15.0 % (20.0-45.0) L Monocytes (%) (Auto) 16.6 % (1.0-10.0) H Eosinophils (%) (Auto) 3.0 % (0.0-3.0) Basophils (%) (Auto) 0.6 % (0.0-2.0) Sodium Level 143 MMOL/L (136-145) Potassium Level 3.5 MMOL/L (3.5-5.1) Chloride Level 110 MMOL/L (98-107) H Carbon Dioxide Level 26 MMOL/L (21-32) Anion Gap 7 mmol/L (5-15) Blood Urea Nitrogen 10 mg/dL (7-18) Creatinine 0.8 MG/DL (0.55-1.30) Estimat Glomerular Filtration Rate mL/min (>60) Glucose Level 108 MG/DL (74-106) H Calcium Level 8.9 MG/DL (8.5-10.1) Phosphorus Level 2.8 MG/DL (2.5-4.9) Magnesium Level 2.0 MG/DL (1.8-2.4) Total Bilirubin 0.4 MG/DL (0.2-1.0) Aspartate Amino Transf (AST/SGOT) 33 U/L (15-37) Alanine Aminotransferase (ALT/SGPT) 70 U/L (12-78) Alkaline Phosphatase 225 U/L (46-116) H Total Protein 6.6 G/DL (6.4-8.2) Albumin 2.2 G/DL (3.4-5.0) L Globulin 4.4 g/dL Albumin/Globulin Ratio 0.5 (1.0-2.7) L Arterial Blood pH 7.478 (7.350-7.450) Arterial Blood Partial Pressure CO2 35.4 mmHg (35.0-45.0) Arterial Blood Partial Pressure O2 140.2 mmHg (75.0-100.0) H Arterial Blood HCO3 25.7 mmol/L (22.0-26.0) Arterial Blood Oxygen Saturation 98.5 % (95-100) Arterial Blood Base Excess 2.3 (-2-2) H Sudhakar Test Positive Intake and Output 07/17/18 07/18/18 19:00 07:00 Intake Total 2054.084 ml 991.535 ml Output Total 615 ml 825 ml Balance 1439.084 ml 166.535 ml Intake Free Water 80 ml 90 ml IV Total 1374.084 ml 301.535 ml Tube Feeding 600 ml 600 ml Output Urine Total 615 ml 825 ml # Bowel Movements 2 Objective PHYSICAL EXAMINATION: GENERAL: The patient is a thin-appearing male, in no apparent distress. The patient is intubated and sedated. HEENT: Eyes, pupils are equal and responsive to light and accommodation. Extraocular movements are intact. NECK: Supple. No lymphadenopathy. CHEST: Mech vent; Few expiratory wheezes bilaterally. Otherwise, without crackles or rales. CARDIOVASCULAR: Tachycardic, regular rate. S1 and S2 are normal without murmurs, rubs, or gallops. ABDOMEN: Soft, nontender, and nondistended. Positive bowel sounds. No evidence of hepatosplenomegaly. Currently, no rebound or guarding noted. EXTREMITIES: Negative for clubbing, cyanosis, or edema. RECTAL/GENITAL: Not performed. NEUROLOGICALLY: Unable to assess secondary to the patient's mental status. Assessment/Plan Assessment/Plan ASSESSMENT: This is a 72-year-old male. 1. Intractable seizures. 2. Respiratory failure. 3. Probable pneumonia of the right upper lobe. 4. History of seizure disorder. 5. Chronic obstructive pulmonary disease. 6. Diabetes type 2. 7. Hypertension. 8. Metabolic encephalopathy. 9. Chronic obstructive pulmonary disease. 10. Chronic renal failure. 11. Traumatic brain injury. 12. Gastroesophageal reflux disease. 13. Coronary artery disease. 14. Anemia. 15. History of gastrointestinal hemorrhage. 16. Hypercholesteremia. 17. Cerebrovascular disease, status post cerebrovascular accident. 18. Dysphagia. 19. Prostate cancer with mets 20. UTI=staph haemolyticus TREATMENT: 1. Intractable seizure. A Neurology consultation has been obtained. The patient has been started on Ativan intravenously. We will follow recommendations of Neurology. Continue Keppra, Dilantin, and Depakote as above. 2. Respiratory failure. Pulmonary consultation has been obtained with Dr. Maria E Shine. The patient is currently intubated in the intensive care unit. We will follow recommendations of Pulmonary. 3. Chronic obstructive pulmonary disease. As above, a Pulmonary consultation has been obtained with Dr. Maria E Shine. 4. Diabetes type 2. The patient has been placed on a NovoLog sliding scale. 5. Hypertension. The patient is currently hypotensive. 6. Metabolic encephalopathy. 7. Renal failure. 8. Traumatic brain injury. 9. Gastroesophageal reflux disease. 10. Coronary artery disease. 11. Anemia. 12. Gastrointestinal hemorrhage. 13. Hypercholesterolemia. 14. Cerebrovascular disease. 15. Dysphagia, status post PEG placement. 16. D/C vanco for staph UTI; D/C zosyn for peumonia-await urine and sputum cultures per ID 17. ID consult=Michael Land MD Jul 18, 2018 11:34
--- NOTE | 2018-07-18 12:00 | NUR ---
NURSE NOTES: Patient remains calm and comfortable in bed. No complains at this time. Respirations even and unlabored. Restraints remain in place, patient is impulsive, tries to remove ET tube.
--- NOTE | 2018-07-18 12:43 | Diagnostic Imaging Report ---
Indication: Dyspnea Comparison: 07/17/2018 A single view chest radiograph was obtained. Findings: Central vessels in the hilar regions appear prominent. Endotracheal tube is in good position as is the nasogastric tube. Heart size is stable. IMPRESSION: No change from the prior exam
[2018-07-18] MEDS ORDERED: Heparin 5000 units/ml inj IV SCH ×2 (12:45→20:30)
--- NOTE | 2018-07-18 14:00 | NUR ---
NURSE NOTES: Patient resting in bed, restraints in place. Respirations even and unlabored. No acute distress. Oral care provided. Patient drools in large amounts. Changed gown. HOB elevated.
--- NOTE | 2018-07-18 14:03 | Infectious Diseases Prog Note ---
Assessment/Plan Assessment/Plan 72 yo male with PMHx of TBI, Seizure disorder, COPD, Encephalopathy, DM, HTN, CVA, Renal failure, CAD and Dysphagia s/p Peg who was brought to the ED on with intractable seizures. Respiratory failure Most probably due to seizures Active PNA unlikely Sputum Cx 07/12/18 - NF Bacteriuria UTI unlikely UCx - Staph h. S/P 2 days Vancomycin DVT right leg On Heparin TBI Seizure disorder COPD Encephalopathy DM HTN CVA Renal failure CAD Dysphagia s/p Peg PLAN - Monitor off abx 07/15/18 S/P Vancomcyin and Zosyn #2 - Supportive care - Monitor CBC and Temps Subjective Allergies: Coded Allergies: HALOPERIDOL (Verified Allergy, Mild, [place] really bad, 07/05/16) Makes him irritable. THIORIDAZINE (Verified Allergy, Mild, [place] really bad, 07/05/16) Makes him violent TRAZODONE (Verified Allergy, Mild, [place] really bad, 07/05/16) Too strong; inability to move. Uncoded Allergies: PSYCHOTROPIC MEDICATION (Allergy, Mild, 08/13/14) Subjective MARIANA Afebrile On Vent 30% O2 No Leukocytosis Objective Vital Signs Last 24 Hour Vital Signs Date Time Temp Pulse Resp B/P (MAP) Pulse Ox O2 Delivery O2 Flow Rate FiO2 07/18/18 13:00 92 15 127/83 100 Mechanical Ventilator 30 07/18/18 12:42 85 14 30 30 07/18/18 12:00 Mechanical Ventilator 07/18/18 12:00 97.7 89 14 148/86 100 Mechanical Ventilator 30 07/18/18 12:00 87 07/18/18 12:00 30 07/18/18 11:00 87 14 138/87 100 Mechanical Ventilator 30 07/18/18 10:44 78 18 30 07/18/18 10:00 94 14 121/71 100 Mechanical Ventilator 30 07/18/18 09:13 100 07/18/18 09:13 81 14 30 07/18/18 09:00 85 15 179/82 100 Mechanical Ventilator 30 07/18/18 08:20 30 07/18/18 08:00 83 14 103/70 100 Mechanical Ventilator 30 07/18/18 08:00 85 07/18/18 08:00 Mechanical Ventilator 07/18/18 07:51 75 8 30 30 07/18/18 07:00 98.9 82 15 132/92 100 Mechanical Ventilator 30 07/18/18 06:00 79 15 139/86 100 Mechanical Ventilator 30 07/18/18 05:01 85 14 30 30 07/18/18 05:00 85 12 115/50 100 Mechanical Ventilator 30 07/18/18 04:09 97.9 6 04:00 Mechanical Ventilator 07/18/18 04:00 97.8 79 14 108/73 100 Mechanical Ventilator 30 07/18/18 04:00 81 07/18/18 04:00 30 07/18/18 03:00 82 14 118/71 100 Mechanical Ventilator 30 07/18/18 02:56 79 14 30 30 07/18/18 02:00 83 14 123/82 100 Mechanical Ventilator 30 07/18/18 01:00 91 21 143/104 100 Mechanical Ventilator 30 07/18/18 00:50 74 14 30 30 07/18/18 00:50 74 14 100 Mechanical Ventilator 30 07/18/18 00:00 Mechanical Ventilator 07/18/18 00:00 30 07/18/18 00:00 80 07/18/18 00:00 97.9 73 14 115/72 100 Mechanical Ventilator 30 07/17/18 23:00 81 14 130/76 100 Mechanical Ventilator 30 07/17/18 22:43 81 15 30 30 07/17/18 22:00 82 14 122/75 100 Mechanical Ventilator 30 07/17/18 21:00 87 14 123/74 100 Mechanical Ventilator 30 07/17/18 20:58 89 15 30 30 07/17/18 20:00 89 07/17/18 20:00 Mechanical Ventilator 07/17/18 20:00 30 07/17/18 20:00 97.9 87 14 126/83 100 Mechanical Ventilator 30 07/17/18 19:00 99 16 143/78 100 Mechanical Ventilator 30 07/17/18 19:00 90 15 30 30 07/17/18 18:00 97 15 119/79 100 Mechanical Ventilator 30 07/17/18 17:00 94 15 126/76 100 Mechanical Ventilator 30 07/17/18 16:46 96 15 30 07/17/18 16:00 30 07/17/18 16:00 99 07/17/18 16:00 98.5 98 15 121/74 100 Mechanical Ventilator 30 07/17/18 16:00 Mechanical Ventilator 07/17/18 15:00 97 14 129/82 100 Mechanical Ventilator 30 07/17/18 14:54 98 16 30 Height (Feet): 6 Weight (Pounds): 170 Objective Gen: NAD, Intuabted on vent, Awake HEENT: DMM, PERRL LUNGS: CTAB, No W/C CARDS: RRR, S1, S2, ABD: Soft, ND SKIN: Warm/dry, No rashes Laboratory Tests Test 07/17/18 19:50 07/18/18 03:15 07/18/18 08:40 07/18/18 11:45 Activated Partial Thromboplast Time 109 SEC (23-33) H 59 SEC (23-33) H 58 SEC (23-33) H White Blood Count 4.6 K/UL (4.8-10.8) L Red Blood Count 3.34 M/UL (4.70-6.10) L Hemoglobin 9.9 G/DL (14.2-18.0) L Hematocrit 30.0 % (42.0-52.0) L Mean Corpuscular Volume 90 FL (80-99) Mean Corpuscular Hemoglobin 29.6 PG (27.0-31.0) Mean Corpuscular Hemoglobin Concent 33.0 G/DL (32.0-36.0) Red Cell Distribution Width 13.4 % (11.6-14.8) Platelet Count 168 K/UL (150-450) Mean Platelet Volume 7.3 FL (6.5-10.1) Neutrophils (%) (Auto) 64.9 % (45.0-75.0) Lymphocytes (%) (Auto) 15.0 % (20.0-45.0) L Monocytes (%) (Auto) 16.6 % (1.0-10.0) H Eosinophils (%) (Auto) 3.0 % (0.0-3.0) Basophils (%) (Auto) 0.6 % (0.0-2.0) Sodium Level 143 MMOL/L (136-145) Potassium Level 3.5 MMOL/L (3.5-5.1) Chloride Level 110 MMOL/L (98-107) H Carbon Dioxide Level 26 MMOL/L (21-32) Anion Gap 7 mmol/L (5-15) Blood Urea Nitrogen 10 mg/dL (7-18) Creatinine 0.8 MG/DL (0.55-1.30) Estimat Glomerular Filtration Rate mL/min (>60) Glucose Level 108 MG/DL (74-106) H Calcium Level 8.9 MG/DL (8.5-10.1) Phosphorus Level 2.8 MG/DL (2.5-4.9) Magnesium Level 2.0 MG/DL (1.8-2.4) Total Bilirubin 0.4 MG/DL (0.2-1.0) Aspartate Amino Transf (AST/SGOT) 33 U/L (15-37) Alanine Aminotransferase (ALT/SGPT) 70 U/L (12-78) Alkaline Phosphatase 225 U/L (46-116) H Total Protein 6.6 G/DL (6.4-8.2) Albumin 2.2 G/DL (3.4-5.0) L Globulin 4.4 g/dL Albumin/Globulin Ratio 0.5 (1.0-2.7) L Arterial Blood pH 7.478 (7.350-7.450) Arterial Blood Partial Pressure CO2 35.4 mmHg (35.0-45.0) Arterial Blood Partial Pressure O2 140.2 mmHg (75.0-100.0) H Arterial Blood HCO3 25.7 mmol/L (22.0-26.0) Arterial Blood Oxygen Saturation 98.5 % (95-100) Arterial Blood Base Excess 2.3 (-2-2) H Sudhakar Test Positive Current Medications Medications (Trade) Dose Ordered Sig/Jesi Route PRN Reason Start Time Stop Time Status Last Admin Dose Admin Albuterol/ Ipratropium (Albuterol/ Ipratropium) 3 ml Q4H PRN HHN sob 07/15/18 09:00 07/20/18 08:59 Chlorhexidine Gluconate (Candie-Hex 2%) 1 applic DAILY@1999 TOPIC 07/16/18 20:00 08/15/18 19:59 07/17/18 20:25 Dextrose (Dextrose 50%) 25 ml Q30M PRN IV Hypoglycemia 07/13/18 01:15 08/12/18 01:14 Dextrose (Dextrose 50%) 50 ml Q30M PRN IV Hypoglycemia 07/13/18 01:15 08/12/18 01:14 Famotidine (Pepcid I.v.) 20 mg Q12HR IVP 07/13/18 09:00 08/12/18 08:59 07/18/18 09:12 Heparin Sodium (Porcine) (Heparin 5000 units/ml) 3,000 units ONCE IV 07/18/18 12:45 07/18/18 14:25 07/18/18 13:59 Heparin Sodium/ Dextrose 500 ml @ 33.398 mls/ hr ADJUST PER PROTOCOL IV 07/18/18 12:45 08/17/18 05:14 Insulin Aspart (NovoLOG) EVERY 6 HOURS SUBQ 07/14/18 00:00 08/12/18 12:29 Levetiracetam 100 ml @ 400 mls/hr Q12H IVPB 07/14/18 21:15 08/13/18 21:14 07/18/18 09:12 Levetiracetam 100 ml @ 400 mls/hr Q12HR IVPB 07/14/18 21:00 08/13/18 20:59 07/18/18 09:23 Lorazepam (Ativan 2mg/ml 1ml) 2 mg Q4H PRN IV For Anxiety 07/13/18 11:45 07/20/18 11:44 07/17/18 15:57 Morphine Sulfate (Morphine Sulfate) 4 mg Q4H PRN IVP For Pain 07/13/18 12:00 07/20/18 11:59 07/18/18 02:49 Valproate Sodium 1000 mg/Dextrose 65 ml @ 32.5 mls/hr Q12HR@0100,1300 IV 07/14/18 13:00 08/13/18 12:59 07/18/18 00:18 Matteo Hunt MD Jul 18, 2018 14:03
[2018-07-18] MEDS: LORazepam Inj 2mg/ml 1ml IV PRN (14:42)
[2018-07-18] MEDS ORDERED: Tubing IV Secondary IV ONE (15:30)
--- NOTE | 2018-07-18 16:00 | NUR ---
NURSE NOTES: Patient comfortable in bed. HOB elevated for aspiration precaution. No signs or complains of pain noted. Extremities elevated.
--- NOTE | 2018-07-18 19:12 | NUR ---
RESPIRATORY NOTE: Received pt on AC 14, 600VT, 30%, PEEP +5. Pt intubated w/ ETT 7.0 @ 23cm lipline, secured by anchorfast. Pt alert/awake, follows commands. B/S juan. rhonchi, sxn small to moderate amounts of thick, gonzáles-brown secretions w/ occasional blood/red specks. Both hands on soft restraints to prevent pt from self-extubation. Vent plugged into red outlet, ambubag at bedside. Pt in no apparent distress at this time. Will continue to monitor pt.
--- NOTE | 2018-07-18 19:14 | NUR ---
HAND-OFF: Report given to RONI Burgess.
[2018-07-18] MEDS: Dyna-Hex 2% Top Sol 2oz TOPIC SCH (20:35)
--- NOTE | 2018-07-18 23:12 | NUR ---
HAND-OFF: Report given to .fouzia pulido using sbar
--- NOTE | 2018-07-18 23:41 | Neurology Progress Note ---
Interim History Interim History ROS Limited/Unobtainable: Yes Complaints: AMS Events: Remains intubated in ICU Interim History This visit was performed on July 21, [address] Abad Iniguez Objective Physical Exam Last Vital Signs Date Time Temp Pulse Resp B/P (MAP) Pulse Ox O2 Delivery O2 Flow Rate FiO2 07/18/18 23:05 88 15 30 30 07/18/18 22:00 127/77 100 Mechanical Ventilator 07/18/18 20:00 98.6 Laboratory Tests Test 07/18/18 03:15 07/18/18 08:40 07/18/18 11:45 07/18/18 19:57 White Blood Count 4.6 K/UL (4.8-10.8) L Red Blood Count 3.34 M/UL (4.70-6.10) L Hemoglobin 9.9 G/DL (14.2-18.0) L Hematocrit 30.0 % (42.0-52.0) L Mean Corpuscular Volume 90 FL (80-99) Mean Corpuscular Hemoglobin 29.6 PG (27.0-31.0) Mean Corpuscular Hemoglobin Concent 33.0 G/DL (32.0-36.0) Red Cell Distribution Width 13.4 % (11.6-14.8) Platelet Count 168 K/UL (150-450) Mean Platelet Volume 7.3 FL (6.5-10.1) Neutrophils (%) (Auto) 64.9 % (45.0-75.0) Lymphocytes (%) (Auto) 15.0 % (20.0-45.0) L Monocytes (%) (Auto) 16.6 % (1.0-10.0) H Eosinophils (%) (Auto) 3.0 % (0.0-3.0) Basophils (%) (Auto) 0.6 % (0.0-2.0) Activated Partial Thromboplast Time 59 SEC (23-33) H 58 SEC (23-33) H 62 SEC (23-33) H Sodium Level 143 MMOL/L (136-145) Potassium Level 3.5 MMOL/L (3.5-5.1) Chloride Level 110 MMOL/L (98-107) H Carbon Dioxide Level 26 MMOL/L (21-32) Anion Gap 7 mmol/L (5-15) Blood Urea Nitrogen 10 mg/dL (7-18) Creatinine 0.8 MG/DL (0.55-1.30) Estimat Glomerular Filtration Rate mL/min (>60) Glucose Level 108 MG/DL (74-106) H Calcium Level 8.9 MG/DL (8.5-10.1) Phosphorus Level 2.8 MG/DL (2.5-4.9) Magnesium Level 2.0 MG/DL (1.8-2.4) Total Bilirubin 0.4 MG/DL (0.2-1.0) Aspartate Amino Transf (AST/SGOT) 33 U/L (15-37) Alanine Aminotransferase (ALT/SGPT) 70 U/L (12-78) Alkaline Phosphatase 225 U/L (46-116) H Total Protein 6.6 G/DL (6.4-8.2) Albumin 2.2 G/DL (3.4-5.0) L Globulin 4.4 g/dL Albumin/Globulin Ratio 0.5 (1.0-2.7) L Arterial Blood pH 7.478 (7.350-7.450) Arterial Blood Partial Pressure CO2 35.4 mmHg (35.0-45.0) Arterial Blood Partial Pressure O2 140.2 mmHg (75.0-100.0) H Arterial Blood HCO3 25.7 mmol/L (22.0-26.0) Arterial Blood Oxygen Saturation 98.5 % (95-100) Arterial Blood Base Excess 2.3 (-2-2) H Sudhakar Test Positive General: well developed, well nourished Head: normocophalic Neck: no rigidity EENT: benign Neurologic Exam Mental Status: other Speech: other Language: other Cranial Nerve II: fundus normal, visual dodd, no papilledema Cranial Nerves III, IV, : EOMI Cranial Nerve V: other Cranial Nerve VII: no facial asymmetry Cranial Nerve VIII: no nystagmus Cranial Nerve IX: gag response Cranial Nerve XI: other Cranial Nerve XII: other Motor System: normal muscle tone, no involuntary movement, no muscle wasting Sensory: other Coordination: other Deep Tendon Reflexes: 0 bicep (R), 0 tricep (R), 0 knee (R), 0 ankle (R); 1+ bicep (L), 1+ tricep (L), 1+ brachioradialis (L), 1+ knee (L), 1+ ankle (L) Reflexes: flexor plantar (L), flexor plantar (R); extensor plantar (L), extensor plantar (R) Objective Patient is intubated and does not open eyes to voice - he KAT x4 spontaneously - does not follow commands - W/D to noxious stimuli x 4- Pupils are briskly reactive and PERRL - His exam is non focal Impression/Recommendations Problems: (1) Acute metabolic encephalopathy (2) Acute encephalopathy (3) Drug abuse (4) COPD (chronic obstructive pulmonary disease) (5) Diabetes mellitus (6) Anemia (7) Acute respiratory failure (8) Seizure disorder (9) UTI (urinary tract infection) (10) Prostate cancer, primary, 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 site (11) Iron deficiency anemia (12) Acute renal failure (ARF) Status: stable Recommendations Abx as per ID EEG Done today Valproate 1000mg BID added to regimen for seizure control May continue with Ativan 1mg as eeded for seizure Kenia Pompa N.P. Jul 18, 2018 23:41
[2018-07-19] VITALS (25 sets, daily range): BP systolic 94–171; BP diastolic 32–114
[2018-07-19] MEDS: Valproate Sodium INJ 1,000 MG in D5W 55 ML IV SCH ×2 (00:32→13:36)
[2018-07-19] MEDS: LORazepam Inj 2mg/ml 1ml IV PRN ×2 (00:32→17:42)
--- NOTE | 2018-07-19 00:33 | NUR ---
NURSE NOTES:Ativan 2mg ivp given due to pts anxiety and agitation.
--- NOTE | 2018-07-19 04:00 | NUR ---
NURSE NOTES:PTT 115, hold heparin drip for 30 min(per pipeline pharm) then decrease by 3units .
--- NOTE | 2018-07-19 04:30 | NUR ---
NURSE NOTES:Heparin drip now at 20u/kg/hr.
[2018-07-19] MEDS: Heparin 25,000u/D5W 500ml 500 ML IV SCH ×2 (04:39→11:52)
[2018-07-19 05:15] LABS: EOSINOPHILS % (AUTO) 2.4 % (0.0-3.0); HEMATOCRIT 31.1 % (42.0-52.0); HEMOGLOBIN 10.1 G/DL (14.2-18.0); LYMPHOCYTES % (AUTO) 17.9 % (20.0-45.0); MEAN CORPUSCULAR VOLUME 89 FL (80-99); MONOCYTES % (AUTO) 12.5 % (1.0-10.0); NEUTROPHILS % (AUTO) 66.2 % (45.0-75.0); PLATELET COUNT 170 K/UL (150-450); RED BLOOD COUNT 3.48 M/UL (4.70-6.10); RED CELL DISTRIBUTION WIDTH 13.8 % (11.6-14.8); WHITE BLOOD COUNT 5.7 K/UL (4.8-10.8)
--- NOTE | 2018-07-19 05:30 | NUR ---
NURSE NOTES:Pt had x2 lg soft yellowish stool. Cleaned up pt.
[2018-07-19 05:47] LABS: ALANINE AMINOTRANSFERASE 73 U/L (12-78); ALBUMIN 2.2 G/DL (3.4-5.0); ALBUMIN/GLOBULIN RATIO 0.5 (1.0-2.7); ALKALINE PHOSPHATASE 253 U/L (46-116); ANION GAP 10 mmol/L (5-15); ASPARTATE AMINO TRANSFERASE 43 U/L (15-37); BILIRUBIN,TOTAL 0.3 MG/DL (0.2-1.0); BLOOD UREA NITROGEN 13 mg/dL (7-18); CALCIUM 8.9 MG/DL (8.5-10.1); CARBON DIOXIDE 24 MMOL/L (21-32); CHLORIDE 107 MMOL/L (98-107); CREATININE 0.9 MG/DL (0.55-1.30); POTASSIUM 3.5 MMOL/L (3.5-5.1); SODIUM 141 MMOL/L (136-145)
[2018-07-19] MEDS: NovoLOG Insulin Flexpen SUBQ SCH ×4 (06:00→17:18)
--- NOTE | 2018-07-19 07:01 | NUR ---
Respiratory Note - Received patient on ventilator settings of ACVC+ 14, VT 600, iTime 1.0, FIO2 30%, PEEP +5. Patient intubated with 7.0 ETT at 23 cm at the lip, secured with anchorfast. Bilateral rhonchi breath sounds noted. Suction minimal amounts of thin white secretions. Patient alert but drowsy. Vent plugged into red outlet. Alarms are on and audible. Will continue to closely monitor throughout the day.
--- NOTE | 2018-07-19 07:27 | NUR ---
HAND-OFF: Report given to Ana TAMAYO.
--- NOTE | 2018-07-19 07:30 | NUR ---
NURSE NOTES: Report received from Anastasiya TAMAYO. Pt alert and oriented x1-2, follows simple commands. Pt SR on cafeteria monitor. Pt orally intubated ETT 7, 23 cm at the lipline, AC 14, TV 600, 30% fiO2, PEEP 5. NGT to glucerna 1.5 at 50 cc/hr. Sims noted and intact with clear, yellow urine to gravity. KAMILLA PICC with Heparin 20u/kg/hr. Safety measures in place with bed locked and in lowest position, side rails x3 up and bed alarm on. Will continue to monitor and continue plan of care.
[2018-07-19] MEDS: levETIRAcetam 500mg/NS100ml IVPB SCH ×2 (08:29→21:37)
[2018-07-19] MEDS: levETIRAcetam 1,000mg/NS100ml IVPB SCH ×2 (08:34→21:06)
--- NOTE | 2018-07-19 09:10 | Infectious Diseases Prog Note ---
Assessment/Plan Assessment/Plan 72 yo male with PMHx of TBI, Seizure disorder, COPD, Encephalopathy, DM, HTN, CVA, Renal failure, CAD and Dysphagia s/p Peg who was brought to the ED on with intractable seizures. Respiratory failure Most probably due to seizures Active PNA unlikely Sputum Cx 07/12/18 - NF Bacteriuria UTI unlikely UCx - Staph h. S/P 2 days Vancomycin DVT right leg On Heparin TBI Seizure disorder COPD Encephalopathy DM HTN CVA Renal failure CAD Dysphagia s/p Peg PLAN - Continue to monitor off abx 07/15/18 S/P Vancomycin and Zosyn #2 - Supportive care - Monitor CBC and Temps Subjective Allergies: Coded Allergies: HALOPERIDOL (Verified Allergy, Mild, [place] really bad, 07/05/16) Makes him irritable. THIORIDAZINE (Verified Allergy, Mild, [place] really bad, 07/05/16) Makes him violent TRAZODONE (Verified Allergy, Mild, [place] really bad, 07/05/16) Too strong; inability to move. Uncoded Allergies: PSYCHOTROPIC MEDICATION (Allergy, Mild, 08/13/14) Subjective Awake on vent Afebrile No Leukocytosis Objective Vital Signs Last 24 Hour Vital Signs Date Time Temp Pulse Resp B/P (MAP) Pulse Ox O2 Delivery O2 Flow Rate FiO2 07/19/18 09:04 75 15 30 30 07/19/18 09:02 75 15 30 30 07/19/18 08:00 30 07/19/18 08:00 99.6 73 14 98/65 100 Mechanical Ventilator 30 07/19/18 08:00 Mechanical Ventilator 07/19/18 08:00 70 07/19/18 07:00 77 15 99/61 98 Mechanical Ventilator 30 07/19/18 06:38 74 14 30 07/19/18 06:00 78 15 103/62 98 Mechanical Ventilator 30 07/19/18 05:21 81 14 30 07/19/18 05:00 81 15 102/62 98 Mechanical Ventilator 30 07/19/18 04:00 88 07/19/18 04:00 Mechanical Ventilator 07/19/18 04:00 30 07/19/18 04:00 84 15 120/70 98 Mechanical Ventilator 30 07/19/18 03:22 86 14 30 07/19/18 03:00 83 15 140/86 98 Mechanical Ventilator 30 07/19/18 02:00 84 14 98/62 98 Mechanical Ventilator 30 07/19/18 01:15 90 14 30 6 01:00 89 14 98/62 98 Mechanical Ventilator 30 07/19/18 00:00 90 07/19/18 00:00 Mechanical Ventilator 07/19/18 00:00 100.0 89 14 94/62 100 Mechanical Ventilator 30 07/19/18 00:00 30 07/18/18 23:05 88 15 30 07/18/18 23:00 90 14 130/77 100 Mechanical Ventilator 30 07/18/18 22:00 30 07/18/18 22:00 96 14 127/77 100 Mechanical Ventilator 30 07/18/18 21:10 97 19 30 07/18/18 21:00 98 14 150/82 100 Mechanical Ventilator 30 07/18/18 20:00 98.6 99 14 130/81 100 Mechanical Ventilator 30 07/18/18 20:00 Mechanical Ventilator 07/18/18 20:00 88 07/18/18 19:10 99 15 30 30 07/18/18 19:00 101 14 112/74 100 Mechanical Ventilator 30 07/18/18 18:00 98 16 125/79 100 Mechanical Ventilator 30 07/18/18 17:00 100 16 116/77 100 Mechanical Ventilator 30 07/18/18 16:53 82 14 30 30 07/18/18 16:00 30 07/18/18 16:00 98.6 120 19 166/75 99 Mechanical Ventilator 30 07/18/18 16:00 120 07/18/18 16:00 Mechanical Ventilator 07/18/18 15:00 115 17 148/92 100 Mechanical Ventilator 30 07/18/18 14:54 80 14 30 30 07/18/18 14:00 112 15 179/73 100 Mechanical Ventilator 30 07/18/18 13:00 92 15 127/83 100 Mechanical Ventilator 30 07/18/18 12:42 85 14 30 30 07/18/18 12:00 Mechanical Ventilator 07/18/18 12:00 97.7 89 14 148/86 100 Mechanical Ventilator 30 07/18/18 12:00 87 07/18/18 12:00 30 07/18/18 11:00 87 14 138/87 100 Mechanical Ventilator 30 07/18/18 10:44 78 18 30 07/18/18 10:00 94 14 121/71 100 Mechanical Ventilator 30 07/18/18 09:13 100 07/18/18 09:13 81 14 30 Height (Feet): 6 Weight (Pounds): 169 Objective Gen: NAD, Intuabted on vent HEENT: DMM, PERRL LUNGS: CTAB, No W/C CARDS: RRR, S1, S2, ABD: Soft, ND SKIN: Warm/dry, No rashes Microbiology Date/Time Source Procedure Growth Status 07/17/18 10:45 Sputum Induced Gram Stain - Final Resulted 07/17/18 10:45 Sputum Culture - Preliminary Gram Positive Cocci Resulted Laboratory Tests Test 07/18/18 11:45 07/18/18 19:57 07/19/18 02:30 07/19/18 04:30 Activated Partial Thromboplast Time 58 SEC (23-33) H 62 SEC (23-33) H 115 SEC (23-33) H White Blood Count 5.7 K/UL (4.8-10.8) Red Blood Count 3.48 M/UL (4.70-6.10) L Hemoglobin 10.1 G/DL (14.2-18.0) L Hematocrit 31.1 % (42.0-52.0) L Mean Corpuscular Volume 89 FL (80-99) Mean Corpuscular Hemoglobin 29.2 PG (27.0-31.0) Mean Corpuscular Hemoglobin Concent 32.6 G/DL (32.0-36.0) Red Cell Distribution Width 13.8 % (11.6-14.8) Platelet Count 170 K/UL (150-450) Mean Platelet Volume 5.9 FL (6.5-10.1) L Neutrophils (%) (Auto) 66.2 % (45.0-75.0) Lymphocytes (%) (Auto) 17.9 % (20.0-45.0) L Monocytes (%) (Auto) 12.5 % (1.0-10.0) H Eosinophils (%) (Auto) 2.4 % (0.0-3.0) Basophils (%) (Auto) 1.0 % (0.0-2.0) Sodium Level 141 MMOL/L (136-145) Potassium Level 3.5 MMOL/L (3.5-5.1) Chloride Level 107 MMOL/L (98-107) Carbon Dioxide Level 24 MMOL/L (21-32) Anion Gap 10 mmol/L (5-15) Blood Urea Nitrogen 13 mg/dL (7-18) Creatinine 0.9 MG/DL (0.55-1.30) Estimat Glomerular Filtration Rate mL/min (>60) Glucose Level 105 MG/DL (74-106) Calcium Level 8.9 MG/DL (8.5-10.1) Phosphorus Level 3.0 MG/DL (2.5-4.9) Magnesium Level 1.9 MG/DL (1.8-2.4) Total Bilirubin 0.3 MG/DL (0.2-1.0) Aspartate Amino Transf (AST/SGOT) 43 U/L (15-37) H Alanine Aminotransferase (ALT/SGPT) 73 U/L (12-78) Alkaline Phosphatase 253 U/L (46-116) H Total Protein 6.8 G/DL (6.4-8.2) Albumin 2.2 G/DL (3.4-5.0) L Globulin 4.6 g/dL Albumin/Globulin Ratio 0.5 (1.0-2.7) L Test 07/19/18 07:36 Arterial Blood pH 7.455 (7.350-7.450) Arterial Blood Partial Pressure CO2 36.7 mmHg (35.0-45.0) Arterial Blood Partial Pressure O2 113.1 mmHg (75.0-100.0) H Arterial Blood HCO3 25.2 mmol/L (22.0-26.0) Arterial Blood Oxygen Saturation 97.9 % (95-100) Arterial Blood Base Excess 1.5 (-2-2) Sudhakar Test Positive Current Medications Medications (Trade) Dose Ordered Sig/Jesi Route PRN Reason Start Time Stop Time Status Last Admin Dose Admin Albuterol/ Ipratropium (Albuterol/ Ipratropium) 3 ml Q4H PRN HHN sob 07/15/18 09:00 07/20/18 08:59 Chlorhexidine Gluconate (Candie-Hex 2%) 1 applic DAILY@199907/16/18 20:00 08/15/18 19:59 07/18/18 20:35 Dextrose (Dextrose 50%) 25 ml Q30M PRN IV Hypoglycemia 07/13/18 01:15 08/12/18 01:14 Dextrose (Dextrose 50%) 50 ml Q30M PRN IV Hypoglycemia 07/13/18 01:15 08/12/18 01:14 Famotidine (Pepcid I.v.) 20 mg Q12HR IVP 07/13/18 09:00 08/12/18 08:59 07/19/18 08:29 Heparin Sodium/ Dextrose 500 ml @ 31.808 mls/ hr ADJUST PER PROTOCOL IV 07/19/18 04:30 08/18/18 04:29 07/19/18 04:39 Insulin Aspart (NovoLOG) EVERY 6 HOURS SUBQ 07/14/18 00:00 08/12/18 12:29 Levetiracetam 100 ml @ 400 mls/hr Q12H IVPB 07/14/18 21:15 08/13/18 21:14 07/19/18 08:29 Levetiracetam 100 ml @ 400 mls/hr Q12HR IVPB 07/14/18 21:00 08/13/18 20:59 07/19/18 08:34 Lorazepam (Ativan 2mg/ml 1ml) 2 mg Q4H PRN IV For Anxiety 07/13/18 11:45 07/20/18 11:44 07/19/18 00:32 Morphine Sulfate (Morphine Sulfate) 4 mg Q4H PRN IVP For Pain 07/13/18 12:00 07/20/18 11:59 07/18/18 02:49 Valproate Sodium 1000 mg/Dextrose 65 ml @ 32.5 mls/hr Q12HR@0100,1300 IV 07/14/18 13:00 08/13/18 12:59 07/19/18 00:32 Matteo Hunt MD Jul 19, 2018 09:10
--- NOTE | 2018-07-19 09:20 | NUR ---
NURSE NOTES: Pt currently being weaned. Tolerating so far RR 20 and saturation 100%. Dr Hunt here to see pt, no new orders. No acute distress. Will continue to monitor.
--- NOTE | 2018-07-19 09:52 | NUR ---
RD ASSESSMENT & RECOMMENDATIONS SEE CARE ACTIVITY FOR COMPLETE ASSESSMENT DAILY ESTIMATED NEEDS: Needs based on Critical care, 80kg 22-28 kcals/kg 7948-7650 total kcals 1-2 g protein/kg 80-160 g total protein 25-30 mL/kg 7381-5460 total fluid mLs NUTRITION DIAGNOSIS: Swallowing difficulty R/T respiratory status as evidenced by pt is orally intubated, on NGT feeds. PO DIET RECOMMENDATIONS: [employer] evaluation post extubation ENTERAL NUTRITION RECOMMENDATIONS: GLUCERNA 1.5 @50ml/hr x 24 hrs to provide 1200ml, 1800kcal, 99g prot, 911ml free water * REC TF CHANGE TO GLUCERNA 1.5 FOR LESS FREE FLUID AND TO BETTER MEET EST KCAL/PRO NEEDS * Maintain GLUCERNA 1.5 @ 50ml/hr goal rate * HOB over 30 degrees/ water flush per MD ADDITIONAL RECOMMENDATIONS: * Obtain calibrated bedscale wt for accurate CBW -> pt now w/ added P200 mattress + pump * TF RECS ABOVE, REC CHANGE TO 1.5 FORMULA FOR LESS FREE FLUID D/T ELEV SECRETIONS * Lytes daily, replete as needed (k, phos, mg all wnl 07/19) * Feed w/ hemodynamic stability
--- NOTE | 2018-07-19 10:01 | NUR ---
Social Service Note SW followed up with [facility]rell[facility] regarding patient's [facility]. Per SN[facility] has never been a resident in there facility. Patient was their resident in 2017. Facility had a alternative phone number for brother Giovanny Beck [phone], this number is not inservice.
--- NOTE | 2018-07-19 10:37 | Pulmonolgy Critical Care Note ---
Critical Care - Asmt/Plan Problems: (1) Acute metabolic encephalopathy (2) Acute respiratory failure (3) Seizure disorder (4) COPD (chronic obstructive pulmonary disease) (5) Diabetes mellitus (6) Prostate cancer, primary, 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 site (7) Chronic low back pain Respiratory: monitor respiratory rate, adjust FIO2 Cardiac: continue pressors, continue to monitor HR/BP Renal: F/U I&O, check electrolytes Infectious Disease: check cultures, continue antibiotics Gastrointestinal: continue feedings/current rate Endocrine: monitor blood sugar, continue sliding scale insulin Hematologic: monitor H/H, transfuse if hgb<8.5 Neurologic: PRN Ativan, PRN Morphine, keep patient comfortable Disposition: keep in ICU Notes Reviewed: spring fitter helper, cardio Discussed with: nurses, consultants, clinical case managermanufacturing quality manager - Objective Last 24 Hour Vital Signs Date Time Temp Pulse Resp B/P (MAP) Pulse Ox O2 Delivery O2 Flow Rate FiO2 07/19/18 10:00 78 15 145/80 100 Mechanical Ventilator 30 07/19/18 09:04 75 15 30 30 07/19/18 09:02 75 15 30 30 07/19/18 09:00 76 16 137/69 100 Mechanical Ventilator 30 07/19/18 08:00 30 07/19/18 08:00 99.6 73 14 98/65 100 Mechanical Ventilator 30 07/19/18 08:00 Mechanical Ventilator 07/19/18 08:00 70 07/19/18 07:00 77 15 99/61 98 Mechanical Ventilator 30 07/19/18 06:38 74 14 30 07/19/18 06:00 78 15 103/62 98 Mechanical Ventilator 30 07/19/18 05:21 81 14 30 07/19/18 05:00 81 15 102/62 98 Mechanical Ventilator 30 07/19/18 04:00 88 07/19/18 04:00 Mechanical Ventilator 07/19/18 04:00 30 07/19/18 04:00 84 15 120/70 98 Mechanical Ventilator 30 07/19/18 03:22 86 14 30 07/19/18 03:00 83 15 140/86 98 Mechanical Ventilator 30 07/19/18 02:00 84 14 98/62 98 Mechanical Ventilator 30 07/19/18 01:15 90 14 30 07/19/18 01:00 89 14 98/62 98 Mechanical Ventilator 30 07/19/18 00:00 90 07/19/18 00:00 Mechanical Ventilator 07/19/18 00:00 100.0 89 14 94/62 100 Mechanical Ventilator 30 07/19/18 00:00 30 07/18/18 23:05 88 15 30 07/18/18 23:00 90 14 130/77 100 Mechanical Ventilator 30 07/18/18 22:00 30 07/18/18 22:00 96 14 127/77 100 Mechanical Ventilator 30 07/18/18 21:10 97 19 30 07/18/18 21:00 98 14 150/82 100 Mechanical Ventilator 30 07/18/18 20:00 98.6 99 14 130/81 100 Mechanical Ventilator 30 07/18/18 20:00 Mechanical Ventilator 07/18/18 20:00 88 07/18/18 19:10 99 15 30 30 07/18/18 19:00 101 14 112/74 100 Mechanical Ventilator 30 07/18/18 18:00 98 16 125/79 100 Mechanical Ventilator 30 07/18/18 17:00 100 16 116/77 100 Mechanical Ventilator 30 07/18/18 16:53 82 14 30 30 07/18/18 16:00 30 07/18/18 16:00 98.6 120 19 166/75 99 Mechanical Ventilator 30 07/18/18 16:00 120 07/18/18 16:00 Mechanical Ventilator 07/18/18 15:00 115 17 148/92 100 Mechanical Ventilator 30 07/18/18 14:54 80 14 30 30 07/18/18 14:00 112 15 179/73 100 Mechanical Ventilator 30 07/18/18 13:00 92 15 127/83 100 Mechanical Ventilator 07/18/18 12:42 85 14 30 30 07/18/18 12:00 Mechanical Ventilator 07/18/18 12:00 97.7 89 14 148/86 100 Mechanical Ventilator 30 07/18/18 12:00 87 07/18/18 12:00 30 07/18/18 11:00 87 14 138/87 100 Mechanical Ventilator 30 07/18/18 10:44 78 18 30 Status: sedated, somnolent Condition: critical HEENT: atraumatic Lungs: clear Heart: HR/BP stable Abdomen: soft, non-tender Extremities: no C/C/E, edema Micro: Microbiology Date/Time Source Procedure Growth Status 07/17/18 10:45 Sputum Induced Gram Stain - Final Resulted 07/17/18 10:45 Sputum Culture - Preliminary Gram Positive Cocci Resulted Accucheck: 105 Critical Care - Subjective ROS Limited/Unobtainable: No Condition: critical EKG Rhythm: Sinus Rhythm FI02: 30 Vent Support Breath Rate: 14 Vent Support Mode: CPAP Vent Tidal Volume: 600 Sputum Amount: Small PEEP: 5.0 PIP: 13 Tube Feeding Amount: 50 I&O: Intake and Output 07/18/18 07/19/18 19:00 07:00 Intake Total 1160.118 ml 1741.058 ml Output Total 520 ml 960 ml Balance 640.118 ml 781.058 ml Intake Free Water 100 ml 200 ml IV Total 510.118 ml 891.058 ml Tube Feeding 550 ml 650 ml Output Urine Total 520 ml 960 ml # Bowel Movements 2 CXR: ET in good position ET-Tube: 7.0 ET Position: 23 Labs: Laboratory Tests Test 07/18/18 11:45 07/18/18 19:57 07/19/18 02:30 07/19/18 04:30 Activated Partial Thromboplast Time 58 SEC (23-33) H 62 SEC (23-33) H 115 SEC (23-33) H White Blood Count 5.7 K/UL (4.8-10.8) Red Blood Count 3.48 M/UL (4.70-6.10) L Hemoglobin 10.1 G/DL (14.2-18.0) L Hematocrit 31.1 % (42.0-52.0) L Mean Corpuscular Volume 89 FL (80-99) Mean Corpuscular Hemoglobin 29.2 PG (27.0-31.0) Mean Corpuscular Hemoglobin Concent 32.6 G/DL (32.0-36.0) Red Cell Distribution Width 13.8 % (11.6-14.8) Platelet Count 170 K/UL (150-450) Mean Platelet Volume 5.9 FL (6.5-10.1) L Neutrophils (%) (Auto) 66.2 % (45.0-75.0) Lymphocytes (%) (Auto) 17.9 % (20.0-45.0) L Monocytes (%) (Auto) 12.5 % (1.0-10.0) H Eosinophils (%) (Auto) 2.4 % (0.0-3.0) Basophils (%) (Auto) 1.0 % (0.0-2.0) Sodium Level 141 MMOL/L (136-145) Potassium Level 3.5 MMOL/L (3.5-5.1) Chloride Level 107 MMOL/L (98-107) Carbon Dioxide Level 24 MMOL/L (21-32) Anion Gap 10 mmol/L (5-15) Blood Urea Nitrogen 13 mg/dL (7-18) Creatinine 0.9 MG/DL (0.55-1.30) Estimat Glomerular Filtration Rate mL/min (>60) Glucose Level 105 MG/DL (74-106) Calcium Level 8.9 MG/DL (8.5-10.1) Phosphorus Level 3.0 MG/DL (2.5-4.9) Magnesium Level 1.9 MG/DL (1.8-2.4) Total Bilirubin 0.3 MG/DL (0.2-1.0) Aspartate Amino Transf (AST/SGOT) 43 U/L (15-37) H Alanine Aminotransferase (ALT/SGPT) 73 U/L (12-78) Alkaline Phosphatase 253 U/L (46-116) H Total Protein 6.8 G/DL (6.4-8.2) Albumin 2.2 G/DL (3.4-5.0) L Globulin 4.6 g/dL Albumin/Globulin Ratio 0.5 (1.0-2.7) L Test 07/19/18 07:36 Arterial Blood pH 7.455 (7.350-7.450) Arterial Blood Partial Pressure CO2 36.7 mmHg (35.0-45.0) Arterial Blood Partial Pressure O2 113.1 mmHg (75.0-100.0) H Arterial Blood HCO3 25.2 mmol/L (22.0-26.0) Arterial Blood Oxygen Saturation 97.9 % (95-100) Arterial Blood Base Excess 1.5 (-2-2) Sudhakar Test Positive Maria E Shine MD Jul 19, 2018 10:37
--- NOTE | 2018-07-19 11:02 | NUR ---
NURSE NOTES: Dr Shine here to see pt. Dr vincent pt can be extubated today. ABG drawn while weaning. Will continue to monitor.
--- NOTE | 2018-07-19 11:18 | NUR ---
Respiratory Note- Extubated Patient at 1118. Passed weaning criteria and ABG drawn. Stridor noted post extubation. Placed on CA 10LPM 35%fio2. RN made aware of stridor, awaiting racemic epi order.
--- NOTE | 2018-07-19 11:34 | NUR ---
RADIOLOGY DEPT., CHEST X-RAY DONE.-P.DYE
[2018-07-19] MEDS ORDERED: Racemic EPINEPHrine 2.25% 0.5ml HHN SCH ×2 (11:45→12:45)
[2018-07-19] MEDS ORDERED: Solu-MEDROL 125mg Inj IVP SCH (12:41)
--- NOTE | 2018-07-19 13:08 | NUR ---
NURSE NOTES: Pt having stridor post extubation. Dr Shine ordered epi inhilation and also solumedrol IVP. Will continue to monitor.
--- NOTE | 2018-07-19 15:13 | NUR ---
NURSE NOTES: Pt suctioned NT by RT, thick mucus secretions. Will continue to monitor.
--- NOTE | 2018-07-19 16:11 | NUR ---
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 VS: BP 150/75, P 103, T 99.2, RR 28, SpO2 94 on VENT RBC 3.48, H&H 10.1/31.1, AST 43, ALK PHOS 253 IS:VALPROATE SODIUM 65ml IV RACEPINEPHRINE 0.5ml HHN SOLU-MEDROL 125mg HEPARIN 500mL IV LEVETIRACETAM 100ml IVPB EXTUBATED 07/19 BUT PLACED BACK ON VENTILATOR WITH FiO2 OF 30 ICU STATUS
--- NOTE | 2018-07-19 19:32 | NUR ---
HAND-OFF: Report given to Shauna TAMAYO.
--- NOTE | 2018-07-19 19:33 | NUR ---
NURSE NOTES: Received report from [facility]. Received patient with HR 177 Patient congested called RT and suctioned patient by RT, thick mucus secretions and placed BIPAP 25/5 Fi02 35 Will do ABG in 1 hour. Per [facility] RN Pt post extubation had stridor Dr Shine ordered epi inhalation and also Solumedrol IVP. Patient awake,alert able to make needs known to staff. Denies any pain or discomfort. HOB elevated. Sims draining. Bilateral soft wrist restraint checked. Will continue to monitor patient. On Seizure precaution.
--- NOTE | 2018-07-19 19:35 | NUR ---
Left upper PICC line intact running Heparin drip 2 20units/kg/hr
--- NOTE | 2018-07-19 20:02 | Internal Med Progress Note ---
Subjective Date of Service: Jul 19, 2018 Physician Name Michael Rojo Attending Physician Will Mejía MD Current Medications Medications (Trade) Dose Ordered Sig/Jesi Route PRN Reason Start Time Stop Time Status Last Admin Dose Admin Albuterol/ Ipratropium (Albuterol/ Ipratropium) 3 ml Q4H PRN HHN sob 07/15/18 09:00 07/20/18 08:59 Chlorhexidine Gluconate (Candie-Hex 2%) 1 applic DAILY@2000 TOPIC 07/16/18 20:00 08/15/18 19:59 07/18/18 20:35 Dextrose (Dextrose 50%) 25 ml Q30M PRN IV Hypoglycemia 07/13/18 01:15 08/12/18 01:14 Dextrose (Dextrose 50%) 50 ml Q30M PRN IV Hypoglycemia 07/13/18 01:15 08/12/18 01:14 Famotidine (Pepcid I.v.) 20 mg Q12HR IVP 07/13/18 09:00 08/12/18 08:59 07/19/18 08:29 Heparin Sodium/ Dextrose 500 ml @ 31.808 mls/ hr ADJUST PER PROTOCOL IV 07/19/18 04:30 08/18/18 04:29 07/19/18 11:52 Insulin Aspart (NovoLOG) EVERY 6 HOURS SUBQ 07/14/18 00:00 08/12/18 12:29 Levetiracetam 100 ml @ 400 mls/hr Q12H IVPB 07/14/18 21:15 08/13/18 21:14 07/19/18 08:29 Levetiracetam 100 ml @ 400 mls/hr Q12HR IVPB 07/14/18 21:00 08/13/18 20:59 07/19/18 08:34 Lorazepam (Ativan 2mg/ml 1ml) 2 mg Q4H PRN IV For Anxiety 07/13/18 11:45 07/20/18 11:44 07/19/18 17:42 Morphine Sulfate (Morphine Sulfate) 4 mg Q4H PRN IVP For Pain 07/13/18 12:00 07/20/18 11:59 07/18/18 02:49 Valproate Sodium 1000 mg/Dextrose 65 ml @ 32.5 mls/hr Q12HR@0100,1300 IV 07/14/18 13:00 08/13/18 12:59 07/19/18 13:36 Allergies: Coded Allergies: HALOPERIDOL (Verified Allergy, Mild, [place] really bad, 07/05/16) Makes him irritable. THIORIDAZINE (Verified Allergy, Mild, [place] really bad, 07/05/16) Makes him violent TRAZODONE (Verified Allergy, Mild, [place] really bad, 07/05/16) Too strong; inability to move. Uncoded Allergies: PSYCHOTROPIC MEDICATION (Allergy, Mild, 08/13/14) ROS Limited/Unobtainable: Yes Subjective 72 YO M admitted with breakthrough seizure. Now respiratory failure. Extubated 07/19/18; tolerating venturi mask. Cover for Int Connor-Dr Mejía. ICU Objective Last Vital Signs Date Time Temp Pulse Resp B/P (MAP) Pulse Ox O2 Delivery O2 Flow Rate FiO2 07/19/18 19:41 155 30 94 Facial 60 07/19/18 19:00 109/61 07/19/18 18:43 10.0 07/19/18 16:00 98.6 Laboratory Tests Test 07/19/18 02:30 07/19/18 04:30 07/19/18 07:36 07/19/18 10:42 Activated Partial Thromboplast Time 115 SEC (23-33) H 72 SEC (23-33) H White Blood Count 5.7 K/UL (4.8-10.8) Red Blood Count 3.48 M/UL (4.70-6.10) L Hemoglobin 10.1 G/DL (14.2-18.0) L Hematocrit 31.1 % (42.0-52.0) L Mean Corpuscular Volume 89 FL (80-99) Mean Corpuscular Hemoglobin 29.2 PG (27.0-31.0) Mean Corpuscular Hemoglobin Concent 32.6 G/DL (32.0-36.0) Red Cell Distribution Width 13.8 % (11.6-14.8) Platelet Count 170 K/UL (150-450) Mean Platelet Volume 5.9 FL (6.5-10.1) L Neutrophils (%) (Auto) 66.2 % (45.0-75.0) Lymphocytes (%) (Auto) 17.9 % (20.0-45.0) L Monocytes (%) (Auto) 12.5 % (1.0-10.0) H Eosinophils (%) (Auto) 2.4 % (0.0-3.0) Basophils (%) (Auto) 1.0 % (0.0-2.0) Sodium Level 141 MMOL/L (136-145) Potassium Level 3.5 MMOL/L (3.5-5.1) Chloride Level 107 MMOL/L (98-107) Carbon Dioxide Level 24 MMOL/L (21-32) Anion Gap 10 mmol/L (5-15) Blood Urea Nitrogen 13 mg/dL (7-18) Creatinine 0.9 MG/DL (0.55-1.30) Estimat Glomerular Filtration Rate mL/min (>60) Glucose Level 105 MG/DL (74-106) Calcium Level 8.9 MG/DL (8.5-10.1) Phosphorus Level 3.0 MG/DL (2.5-4.9) Magnesium Level 1.9 MG/DL (1.8-2.4) Total Bilirubin 0.3 MG/DL (0.2-1.0) Aspartate Amino Transf (AST/SGOT) 43 U/L (15-37) H Alanine Aminotransferase (ALT/SGPT) 73 U/L (12-78) Alkaline Phosphatase 253 U/L (46-116) H Total Protein 6.8 G/DL (6.4-8.2) Albumin 2.2 G/DL (3.4-5.0) L Globulin 4.6 g/dL Albumin/Globulin Ratio 0.5 (1.0-2.7) L Arterial Blood pH 7.455 (7.350-7.450) Arterial Blood Partial Pressure CO2 36.7 mmHg (35.0-45.0) Arterial Blood Partial Pressure O2 113.1 mmHg (75.0-100.0) H Arterial Blood HCO3 25.2 mmol/L (22.0-26.0) Arterial Blood Oxygen Saturation 97.9 % (95-100) Arterial Blood Base Excess 1.5 (-2-2) Sudhakar Test Positive Test 07/19/18 10:50 Arterial Blood pH 7.439 (7.350-7.450) Arterial Blood Partial Pressure CO2 38.5 mmHg (35.0-45.0) Arterial Blood Partial Pressure O2 105.8 mmHg (75.0-100.0) H Arterial Blood HCO3 25.5 mmol/L (22.0-26.0) Arterial Blood Oxygen Saturation 97.5 % (95-100) Arterial Blood Base Excess 1.4 (-2-2) Sudhakar Test Positive Microbiology Date/Time Source Procedure Growth Status 07/17/18 10:45 Sputum Induced Gram Stain - Final Resulted 07/17/18 10:45 Sputum Culture - Preliminary Gram Positive Cocci Resulted Intake and Output 07/18/18 07/19/18 19:00 07:00 Intake Total 1160.118 ml 1741.058 ml Output Total 520 ml 960 ml Balance 640.118 ml 781.058 ml Intake Free Water 100 ml 200 ml IV Total 510.118 ml 891.058 ml Tube Feeding 550 ml 650 ml Output Urine Total 520 ml 960 ml # Bowel Movements 2 Objective PHYSICAL EXAMINATION: GENERAL: The patient is a thin-appearing male, in no apparent distress. The patient is intubated and sedated. HEENT: Eyes, pupils are equal and responsive to light and accommodation. Extraocular movements are intact. NECK: Supple. No lymphadenopathy. CHEST: venturi mask; Few expiratory wheezes bilaterally. Otherwise, without crackles or rales. CARDIOVASCULAR: Tachycardic, regular rate. S1 and S2 are normal without murmurs, rubs, or gallops. ABDOMEN: Soft, nontender, and nondistended. Positive bowel sounds. No evidence of hepatosplenomegaly. Currently, no rebound or guarding noted. EXTREMITIES: Negative for clubbing, cyanosis, or edema. RECTAL/GENITAL: Not performed. NEUROLOGICALLY: Unable to assess secondary to the patient's mental status. Assessment/Plan Assessment/Plan ASSESSMENT: This is a 72-year-old male. 1. Intractable seizures. 2. Respiratory failure. 3. Probable pneumonia of the right upper lobe. 4. History of seizure disorder. 5. Chronic obstructive pulmonary disease. 6. Diabetes type 2. 7. Hypertension. 8. Metabolic encephalopathy. 9. Chronic obstructive pulmonary disease. 10. Chronic renal failure. 11. Traumatic brain injury. 12. Gastroesophageal reflux disease. 13. Coronary artery disease. 14. Anemia. 15. History of gastrointestinal hemorrhage. 16. Hypercholesteremia. 17. Cerebrovascular disease, status post cerebrovascular accident. 18. Dysphagia. 19. Prostate cancer with mets 20. UTI=staph haemolyticus TREATMENT: 1. Intractable seizure. A Neurology consultation has been obtained. The patient has been started on Ativan intravenously. We will follow recommendations of Neurology. Continue Keppra, Dilantin, and Depakote as above. 2. Respiratory failure. Pulmonary consultation has been obtained with Dr. Maria E Shine. The patient is S/P extubation 07/19/18.i We will follow recommendations of Pulmonary. 3. Chronic obstructive pulmonary disease. As above, a Pulmonary consultation has been obtained with Dr. Maria E Shine. 4. Diabetes type 2. The patient has been placed on a NovoLog sliding scale. 5. Hypertension. The patient is currently hypotensive. 6. Metabolic encephalopathy. 7. Renal failure. 8. Traumatic brain injury. 9. Gastroesophageal reflux disease. 10. Coronary artery disease. 11. Anemia. 12. Gastrointestinal hemorrhage. 13. Hypercholesterolemia. 14. Cerebrovascular disease. 15. Dysphagia, status post PEG placement. 16. D/C vanco for staph UTI; D/C zosyn for peumonia-await urine and sputum cultures per ID 17. ID consult=Michael Land MD Jul 19, 2018 20:02
[2018-07-19] MEDS: Dyna-Hex 2% Top Sol 2oz TOPIC SCH (21:06)
--- NOTE | 2018-07-19 21:27 | NUR ---
NURSE NOTES: pt still with HR 150's left message to Dr. Shine
[2018-07-19] MEDS: Morphine Sulfate 4mg/ml Inj (IV USE ONLY) IVP PRN (21:38)
--- NOTE | 2018-07-19 21:46 | NUR ---
NURSE NOTES: EKG done SVT 150's Dr Shine made aware per MD give Cardizem 10mg IVP noted and carried out. Charge nurse aware.
[2018-07-19] MEDS ORDERED: dilTIAZem HCl 25mg/5ml Inj IVP SCH (22:00)
--- NOTE | 2018-07-19 22:05 | NUR ---
NURSE NOTES: HR SVT 150 after Cardizem 10mg IVP given patient converted back to SR HR 81 will continue to monitor patient. aware.
[2018-07-20] VITALS (24 sets, daily range): BP systolic 97–155; BP diastolic 62–86
--- NOTE | 2018-07-20 | NUR ---
NURSE NOTES: Patient in bed sleeping comfortably. On BIPAP 25/5 fi02 35% satting 98%. HOB elevated. Continue on Heparin drip 2 20units/kg/hr. SR on monitor tech HR 81. Seizure precaution maintained and observed. Will continue plan of acre.
--- NOTE | 2018-07-20 00:03 | Neurology Progress Note ---
Interim History Interim History ROS Limited/Unobtainable: Yes Complaints: AMS Events: Extubated Today Interim History This visit was performed on July 19, [address] Abad Iniguez. Review of Systems Neuro Review of Systems KAT x 4 and Following some commands, able to stand following extubation. Objective Physical Exam Last Vital Signs Date Time Temp Pulse Resp B/P (MAP) Pulse Ox O2 Delivery O2 Flow Rate FiO2 07/19/18 22:33 88 27 90 Facial 40 07/19/18 22:08 99.3 07/19/18 22:01 109/83 07/19/18 18:43 10.0 Laboratory Tests Test 07/19/18 02:30 07/19/18 04:30 07/19/18 07:36 07/19/18 10:42 Activated Partial Thromboplast Time 115 SEC (23-33) H 72 SEC (23-33) H White Blood Count 5.7 K/UL (4.8-10.8) Red Blood Count 3.48 M/UL (4.70-6.10) L Hemoglobin 10.1 G/DL (14.2-18.0) L Hematocrit 31.1 % (42.0-52.0) L Mean Corpuscular Volume 89 FL (80-99) Mean Corpuscular Hemoglobin 29.2 PG (27.0-31.0) Mean Corpuscular Hemoglobin Concent 32.6 G/DL (32.0-36.0) Red Cell Distribution Width 13.8 % (11.6-14.8) Platelet Count 170 K/UL (150-450) Mean Platelet Volume 5.9 FL (6.5-10.1) L Neutrophils (%) (Auto) 66.2 % (45.0-75.0) Lymphocytes (%) (Auto) 17.9 % (20.0-45.0) L Monocytes (%) (Auto) 12.5 % (1.0-10.0) H Eosinophils (%) (Auto) 2.4 % (0.0-3.0) Basophils (%) (Auto) 1.0 % (0.0-2.0) Sodium Level 141 MMOL/L (136-145) Potassium Level 3.5 MMOL/L (3.5-5.1) Chloride Level 107 MMOL/L (98-107) Carbon Dioxide Level 24 MMOL/L (21-32) Anion Gap 10 mmol/L (5-15) Blood Urea Nitrogen 13 mg/dL (7-18) Creatinine 0.9 MG/DL (0.55-1.30) Estimat Glomerular Filtration Rate mL/min (>60) Glucose Level 105 MG/DL (74-106) Calcium Level 8.9 MG/DL (8.5-10.1) Phosphorus Level 3.0 MG/DL (2.5-4.9) Magnesium Level 1.9 MG/DL (1.8-2.4) Total Bilirubin 0.3 MG/DL (0.2-1.0) Aspartate Amino Transf (AST/SGOT) 43 U/L (15-37) H Alanine Aminotransferase (ALT/SGPT) 73 U/L (12-78) Alkaline Phosphatase 253 U/L (46-116) H Total Protein 6.8 G/DL (6.4-8.2) Albumin 2.2 G/DL (3.4-5.0) L Globulin 4.6 g/dL Albumin/Globulin Ratio 0.5 (1.0-2.7) L Arterial Blood pH 7.455 (7.350-7.450) Arterial Blood Partial Pressure CO2 36.7 mmHg (35.0-45.0) Arterial Blood Partial Pressure O2 113.1 mmHg (75.0-100.0) H Arterial Blood HCO3 25.2 mmol/L (22.0-26.0) Arterial Blood Oxygen Saturation 97.9 % (95-100) Arterial Blood Base Excess 1.5 (-2-2) Sudhakar Test Positive Test 07/19/18 10:50 07/19/18 20:30 Arterial Blood pH 7.439 (7.350-7.450) 7.432 (7.350-7.450) Arterial Blood Partial Pressure CO2 38.5 mmHg (35.0-45.0) 36.0 mmHg (35.0-45.0) Arterial Blood Partial Pressure O2 105.8 mmHg (75.0-100.0) H 248.5 mmHg (75.0-100.0) H Arterial Blood HCO3 25.5 mmol/L (22.0-26.0) 23.5 mmol/L (22.0-26.0) Arterial Blood Oxygen Saturation 97.5 % (95-100) 99.2 % (95-100) Arterial Blood Base Excess 1.4 (-2-2) -0.4 (-2-2) Sudhakar Test Positive Positive General: well developed, well nourished Head: normocophalic Neck: no rigidity EENT: benign Neurologic Exam Mental Status: awake, alert, other Speech: other Language: other Cranial Nerve II: fundus normal, visual dodd, no papilledema Cranial Nerves III, IV, : EOMI Cranial Nerve V: normal facial sensations, masseters function normal, pterygoids function normal, other Cranial Nerve VII: no facial asymmetry, normal facial expressions Cranial Nerve VIII: normal hearing, no nystagmus Cranial Nerve IX: normal palate elevation, gag response Cranial Nerve XI: SCM symmetric, other Cranial Nerve XII: tongue midline, no tongue atrophy/fasciculations, other Motor System: normal muscle tone, strength 5/5, no involuntary movement, no muscle wasting Sensory: normal pinprick, normal light touch, other Coordination: other Deep Tendon Reflexes: 1+ bicep (L), 1+ bicep (R), 1+ tricep (L), 1+ tricep (R) , 1+ brachioradialis (L), 1+ brachioradialis (R), 1+ knee (L), 1+ knee (R), 1+ ankle (L), 1+ ankle (R) Reflexes: flexor plantar (L), flexor plantar (R); extensor plantar (L), extensor plantar (R) Stance: normal Objective Extubated with eyes open, tracking with eyes- he He is KAT x 4 and some to command with full strength- Pupils are briskly reactive and PERRL - His exam is non focal Impression/Recommendations Problems: (1) Acute metabolic encephalopathy (2) Acute encephalopathy (3) Drug abuse (4) COPD (chronic obstructive pulmonary disease) (5) Diabetes mellitus (6) Anemia (7) Acute respiratory failure (8) Seizure disorder (9) UTI (urinary tract infection) (10) Prostate cancer, primary, 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 site (11) Iron deficiency anemia (12) Acute renal failure (ARF) Status: stable Recommendations Abx as per ID Valproate 1000mg BID to continue for seizure control Swallow eval and determination regarding method of oral delivery for conversion of meds following extubation. Continue with Q2 Neuro Obs while in ICU or step down to monitor for seizure activity. PT EVAL, patient is strong and non focal . May continue with Ativan 1mg as eeded for seizure Kenai Pompa N.P. Jul 20, 2018 00:03
--- NOTE | 2018-07-20 00:04 | Neurology Progress Note ---
Interim History Interim History ROS Limited/Unobtainable: Yes Complaints: AMS Events: Extubated Yesterday Interim History This visit was performed on July 20, [address] Abad Iniguez. Review of Systems Neuro Review of Systems Extubated on BIPAP mask, following commands, confused. Objective Physical Exam Last Vital Signs Date Time Temp Pulse Resp B/P (MAP) Pulse Ox O2 Delivery O2 Flow Rate FiO2 07/19/18 22:33 88 27 90 Facial 40 07/19/18 22:08 99.3 07/19/18 22:01 109/83 07/19/18 18:43 10.0 Laboratory Tests Test 07/19/18 02:30 07/19/18 04:30 07/19/18 07:36 07/19/18 10:42 Activated Partial Thromboplast Time 115 SEC (23-33) H 72 SEC (23-33) H White Blood Count 5.7 K/UL (4.8-10.8) Red Blood Count 3.48 M/UL (4.70-6.10) L Hemoglobin 10.1 G/DL (14.2-18.0) L Hematocrit 31.1 % (42.0-52.0) L Mean Corpuscular Volume 89 FL (80-99) Mean Corpuscular Hemoglobin 29.2 PG (27.0-31.0) Mean Corpuscular Hemoglobin Concent 32.6 G/DL (32.0-36.0) Red Cell Distribution Width 13.8 % (11.6-14.8) Platelet Count 170 K/UL (150-450) Mean Platelet Volume 5.9 FL (6.5-10.1) L Neutrophils (%) (Auto) 66.2 % (45.0-75.0) Lymphocytes (%) (Auto) 17.9 % (20.0-45.0) L Monocytes (%) (Auto) 12.5 % (1.0-10.0) H Eosinophils (%) (Auto) 2.4 % (0.0-3.0) Basophils (%) (Auto) 1.0 % (0.0-2.0) Sodium Level 141 MMOL/L (136-145) Potassium Level 3.5 MMOL/L (3.5-5.1) Chloride Level 107 MMOL/L (98-107) Carbon Dioxide Level 24 MMOL/L (21-32) Anion Gap 10 mmol/L (5-15) Blood Urea Nitrogen 13 mg/dL (7-18) Creatinine 0.9 MG/DL (0.55-1.30) Estimat Glomerular Filtration Rate mL/min (>60) Glucose Level 105 MG/DL (74-106) Calcium Level 8.9 MG/DL (8.5-10.1) Phosphorus Level 3.0 MG/DL (2.5-4.9) Magnesium Level 1.9 MG/DL (1.8-2.4) Total Bilirubin 0.3 MG/DL (0.2-1.0) Aspartate Amino Transf (AST/SGOT) 43 U/L (15-37) H Alanine Aminotransferase (ALT/SGPT) 73 U/L (12-78) Alkaline Phosphatase 253 U/L (46-116) H Total Protein 6.8 G/DL (6.4-8.2) Albumin 2.2 G/DL (3.4-5.0) L Globulin 4.6 g/dL Albumin/Globulin Ratio 0.5 (1.0-2.7) L Arterial Blood pH 7.455 (7.350-7.450) Arterial Blood Partial Pressure CO2 36.7 mmHg (35.0-45.0) Arterial Blood Partial Pressure O2 113.1 mmHg (75.0-100.0) H Arterial Blood HCO3 25.2 mmol/L (22.0-26.0) Arterial Blood Oxygen Saturation 97.9 % (95-100) Arterial Blood Base Excess 1.5 (-2-2) Sudhakar Test Positive Test 07/19/18 10:50 07/19/18 20:30 Arterial Blood pH 7.439 (7.350-7.450) 7.432 (7.350-7.450) Arterial Blood Partial Pressure CO2 38.5 mmHg (35.0-45.0) 36.0 mmHg (35.0-45.0) Arterial Blood Partial Pressure O2 105.8 mmHg (75.0-100.0) H 248.5 mmHg (75.0-100.0) H Arterial Blood HCO3 25.5 mmol/L (22.0-26.0) 23.5 mmol/L (22.0-26.0) Arterial Blood Oxygen Saturation 97.5 % (95-100) 99.2 % (95-100) Arterial Blood Base Excess 1.4 (-2-2) -0.4 (-2-2) Sudhakar Test Positive Positive General: well developed, well nourished Head: normocophalic Neck: no rigidity EENT: benign Neurologic Exam Mental Status: awake, alert, other Speech: other Language: other Cranial Nerve II: fundus normal, visual dodd, no papilledema Cranial Nerves III, IV, : PERRLA, EOMI Cranial Nerve V: normal facial sensations, temporales function normal, masseters function normal, pterygoids function normal, other Cranial Nerve VII: no facial asymmetry, normal facial expressions Cranial Nerve VIII: normal hearing, no nystagmus Cranial Nerve IX: normal palate elevation, gag response Cranial Nerve XI: SCM symmetric, other Cranial Nerve XII: tongue midline, no tongue atrophy/fasciculations, other Motor System: normal muscle tone, strength 5/5, no involuntary movement, no muscle wasting Sensory: normal pinprick, normal light touch, other Coordination: other Deep Tendon Reflexes: 1+ bicep (L), 1+ bicep (R), 1+ tricep (L), 1+ tricep (R) , 1+ brachioradialis (L), 1+ brachioradialis (R), 1+ knee (L), 1+ knee (R), 1+ ankle (L), 1+ ankle (R) Reflexes: flexor plantar (L), flexor plantar (R); extensor plantar (L), extensor plantar (R) Stance: normal Objective Extubated with eyes open, tracking with eyes- he He is KAT x 4 and some to command with full strength- Pupils are briskly reactive and PERRL - His exam is non focal Has BIPAP mask on now Impression/Recommendations Problems: (1) Acute metabolic encephalopathy (2) Acute encephalopathy (3) Drug abuse (4) COPD (chronic obstructive pulmonary disease) (5) Diabetes mellitus (6) Anemia (7) Acute respiratory failure (8) Seizure disorder (9) UTI (urinary tract infection) (10) Prostate cancer, primary, 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 site (11) Iron deficiency anemia (12) Acute renal failure (ARF) Status: stable Recommendations Abx as per ID Valproate 1000mg BID to continue for seizure control Swallow eval and determination regarding method of oral delivery for conversion of meds following extubation. Continue with Q2 Neuro Obs while in ICU or step down to monitor for seizure activity. PT EVAL, patient is strong and non focal . May continue with Ativan 1mg as eeded for seizure Kenia Pompa N.P. Jul 20, 2018 00:04
[2018-07-20] MEDS: Valproate Sodium INJ 1,000 MG in D5W 55 ML IV SCH ×2 (01:31→12:36)
[2018-07-20] MEDS: Heparin 25,000u/D5W 500ml 500 ML IV SCH ×3 (01:43→17:08)
--- NOTE | 2018-07-20 02:00 | NUR ---
NURSE NOTES: Patient in bed sleeping comfortably. On BIPAP 25/5 fi02 35% satting 98%. HOB elevated. Continue on Heparin drip 20units/kg/hr. SR on nuclear monitoring technician HR 89. Seizure precaution maintained and observed. Will continue plan of acre.
--- NOTE | 2018-07-20 04:00 | NUR ---
NURSE NOTES: Bed bath given tolerated well. Patient with episode of large soft brown bowel movement, kept clean and dry. No s/s of acute distress noted. Timed PTT done will follow up result.
[2018-07-20 04:52] LABS: BASOPHILS % (AUTO) 0.9 % (0.0-2.0); EOSINOPHILS % (AUTO) 0.1 % (0.0-3.0); HEMATOCRIT 33.4 % (42.0-52.0); LYMPHOCYTES % (AUTO) 8.1 % (20.0-45.0); MEAN CORPUSCULAR VOLUME 90 FL (80-99); MONOCYTES % (AUTO) 16.4 % (1.0-10.0); NEUTROPHILS % (AUTO) 74.6 % (45.0-75.0); PLATELET COUNT 200 K/UL (150-450); RED BLOOD COUNT 3.71 M/UL (4.70-6.10); RED CELL DISTRIBUTION WIDTH 13.3 % (11.6-14.8)
--- NOTE | 2018-07-20 05:18 | NUR ---
NURSE NOTES: PTT 61 send message to pipeline pharmacist
[2018-07-20 05:21] LABS: ALANINE AMINOTRANSFERASE 65 U/L (12-78); ALBUMIN 2.3 G/DL (3.4-5.0); ALBUMIN/GLOBULIN RATIO 0.5 (1.0-2.7); ALKALINE PHOSPHATASE 240 U/L (46-116); ANION GAP 9 mmol/L (5-15); ASPARTATE AMINO TRANSFERASE 28 U/L (15-37); BILIRUBIN,TOTAL 0.4 MG/DL (0.2-1.0); BLOOD UREA NITROGEN 14 mg/dL (7-18); CALCIUM 9.4 MG/DL (8.5-10.1); CARBON DIOXIDE 25 MMOL/L (21-32); CHLORIDE 106 MMOL/L (98-107); CREATININE 0.9 MG/DL (0.55-1.30); PHOSPHORUS 2.9 MG/DL (2.5-4.9); POTASSIUM 3.7 MMOL/L (3.5-5.1); SODIUM 140 MMOL/L (136-145)
[2018-07-20] MEDS ORDERED: Heparin 5000 units/ml inj IV SCH (05:30)
--- NOTE | 2018-07-20 05:37 | NUR ---
NURSE NOTES: Will Follow Heparin protocol new order Heparin 22units/kg/hr. Next timed PTT 1130. Charge nurse aware.
[2018-07-20] MEDS: NovoLOG Insulin Flexpen SUBQ SCH ×4 (06:00→17:32)
[2018-07-20] MEDS ORDERED: Tubing IV Secondary IV ONE (06:17)
[2018-07-20] MEDS ORDERED: Sterile Water Irrig 1000ml IRRIG ONE (06:17)
[2018-07-20] MEDS ORDERED: NS 275ml ONE (06:17)
--- NOTE | 2018-07-20 07:15 | NUR ---
RESPIRATORY NOTE: Received pt on Bipap with the same order settings. Pt is awake, alert and tolerating well. Walt rales B/S heard upon auscultation, nasotracheal suctioned large amount of thick small clots white/gonzáles/red specks secretions without incidents. Alarms are set and audible, Bipap is plugged into the red outlet, ambu bag is at bedside. Will continue to monitor.
--- NOTE | 2018-07-20 07:15 | NUR ---
HAND-OFF: Report given to Nadeen TAMAYO.
--- NOTE | 2018-07-20 07:16 | NUR ---
NURSE NOTES: RECEIVED PATIENT IS LYING IN BED, ASLEEP. HOOKED TO NURSING ASSISTANTS TEACHER. ON BIPAP 25/5, FiO2 AT 35%. NO SIGNS OF DISTRESS. NGT ON L NARE, GTF GLUCERNA 1.5 AT 50ML/HR. NOTED STARKS CONNECTED TO BAG, PATENT AND DRAINING URINE. RESTRAINTS ON BILATERAL WRIST. WITH L UA PICC WITH HEPARIN DRIP AT 22"U"/KG/HR. SCHEDULED TIMED PTT. FOLLOWING HOSPITAL PROTOCOL ON HEP DRIP. CALL LIGHT WITHIN REACH. SIDE RAILS UP. BED AT LOWEST POSITION. WILL CONTINUE TO MONITOR.
--- NOTE | 2018-07-20 08:55 | NUR ---
RADIOLOGY DEPT., CHEST X-RAY DONE.-P.DYE
[2018-07-20] MEDS: levETIRAcetam 500mg/NS100ml IVPB SCH ×4 (09:28→21:59)
--- NOTE | 2018-07-20 09:30 | NUR ---
NURSE NOTES: PATIENT PLACED ON VENTI MASK 10L AT FiO2 AT 35%. NO SIGNS OF DISTRESS. WILL CONTINUE TO MONITOR.
--- NOTE | 2018-07-20 10:08 | NUR ---
RESPIRATORY NOTE: Took pt off Bipap and placed on cool aerosol 8L 35%FiO2, pt is tolerating well, no SOB or resp distress noted. Will continue to monitor.
--- NOTE | 2018-07-20 10:52 | Pulmonolgy Critical Care Note ---
Critical Care - Asmt/Plan Problems: (1) Acute metabolic encephalopathy (2) Acute respiratory failure (3) Seizure disorder (4) COPD (chronic obstructive pulmonary disease) (5) Diabetes mellitus (6) Prostate cancer, primary, 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 site (7) Chronic low back pain Respiratory: monitor respiratory rate, adjust FIO2, CXR Cardiac: continue to monitor HR/BP Renal: F/U I&O, increase IV fluid Infectious Disease: check cultures Gastrointestinal: continue feedings/current rate Endocrine: monitor blood sugar, check TSH Hematologic: transfuse if hgb<8.5 Neurologic: PRN Ativan, PRN Morphine, keep patient comfortable Prophylaxis: Protonix Notes 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, renal Discussed with: nurses, consultants, 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 - Objective Last 24 Hour Vital Signs Date Time Temp Pulse Resp B/P (MAP) Pulse Ox O2 Delivery O2 Flow Rate FiO2 07/20/18 10:08 107 26 100 07/20/18 09:15 95 27 97 Facial 35 07/20/18 09:00 104 23 132/79 97 Bi-pap 35 07/20/18 08:00 99.1 102 25 146/74 100 Bi-pap 35 07/20/18 08:00 100 07/20/18 08:00 35 07/20/18 07:15 104 26 99 Facial 35 07/20/18 07:15 Bi-pap 35 07/20/18 07:00 103 20 147/74 96 Bi-pap 35 07/20/18 06:00 96 20 133/70 96 Bi-pap 35 07/20/18 05:00 92 20 111/62 96 Bi-pap 35 07/20/18 04:53 91 19 96 Facial 35 07/20/18 04:00 35 07/20/18 04:00 98.1 96 21 139/76 100 Bi-pap 35 07/20/18 04:00 92 07/20/18 04:00 Mechanical Ventilator Venturi Mask 07/20/18 03:00 73 24 133/77 100 Bi-pap 35 07/20/18 02:40 87 21 97 Bi-pap 35 07/20/18 02:39 87 21 96 Facial 35 07/20/18 02:00 83 24 138/76 100 Bi-pap 35 07/20/18 01:10 77 20 100 Facial 40 07/20/18 01:00 78 24 152/77 100 Bi-pap 40 07/20/18 00:00 40 07/20/18 00:00 Mechanical Ventilator Bi-pap 07/20/18 00:00 99.3 80 21 113/67 100 Bi-pap 40 07/19/18 23:21 88 07/19/18 23:00 87 24 115/76 100 Bi-pap 40 07/19/18 22:33 88 27 90 Facial 40 07/19/18 22:08 99.3 07/19/18 22:01 152 109/83 07/19/18 22:00 88 24 113/71 95 Bi-pap 40 07/19/18 22:00 80 07/19/18 21:57 153 07/19/18 21:56 148 25 109/83 96 Bi-pap 40 07/19/18 21:00 151 28 110/76 98 Bi-pap 40 07/19/18 20:57 152 26 99 40 07/19/18 20:00 Mechanical Ventilator Venturi Mask 07/19/18 20:00 99.0 153 27 109/83 99 Bi-pap 35 07/19/18 20:00 35 07/19/18 19:41 155 30 94 Facial 60 07/19/18 19:00 152 22 109/61 97 Venturi Mask 30 07/19/18 18:59 153 07/19/18 18:43 95 Venturi Mask 10.0 35 07/19/18 18:00 155 27 171/32 94 Venturi Mask 30 07/19/18 17:00 102 19 127/72 100 Mechanical Ventilator 30 07/19/18 16:00 104 07/19/18 16:00 35 07/19/18 16:00 Mechanical Ventilator Venturi Mask 07/19/18 16:00 98.6 103 27 163/84 99 Mechanical Ventilator 30 07/19/18 15:00 103 19 161/114 100 Venturi Mask 30 07/19/18 14:00 101 24 144/83 94 Venturi Mask 30 07/19/18 13:36 100 Venturi Mask 10.0 35 07/19/18 13:28 99 28 100 Venturi Mask 10.0 35 07/19/18 13:14 36 07/19/18 13:14 100 28 97 Venturi Mask 10.0 35 07/19/18 13:00 97 22 150/75 96 Venturi Mask 30 07/19/18 12:12 91 22 100 Venturi Mask 10.0 35 07/19/18 12:02 36 07/19/18 12:02 100 26 100 Venturi Mask 10.0 35 07/19/18 12:00 Mechanical Ventilator Venturi Mask 07/19/18 12:00 99.2 85 21 155/72 100 Venturi Mask 30 07/19/18 12:00 35 07/19/18 12:00 99 07/19/18 11:22 Venturi Mask 10.0 35 07/19/18 11:00 80 22 136/74 100 Mechanical Ventilator 30 Status: somnolent Condition: critical HEENT: atraumatic Lungs: rales, rhonchi Heart: HR/BP stable Abdomen: soft, feeding tube Extremities: no C/C/E Decubiti: location Accucheck: 89 Critical Care - Subjective ROS Limited/Unobtainable: Yes Interval Events: off bipap FI02: 35 Vent Support Breath Rate: 14 Vent Support Mode: BiLevel Vent Tidal Volume: 600 Sputum Amount: Large PEEP: 5.0 PIP: 13 Tube Feeding Amount: 50 I&O: Intake and Output 07/19/18 07/20/18 19:00 07:00 Intake Total 1251.432 ml 1158.12 ml Output Total 875 ml 690 ml Balance 376.432 ml 468.12 ml Intake Free Water 50 ml IV Total 651.432 ml 658.12 ml Tube Feeding 600 ml 450 ml Output Urine Total 875 ml 690 ml # Bowel Movements 2 CXR: no new infiltrate ET-Tube: 7.0 ET Position: 23 Labs: Laboratory Tests Test 07/19/18 20:30 07/20/18 04:00 07/20/18 09:20 Arterial Blood pH 7.432 (7.350-7.450) 7.452 (7.350-7.450) Arterial Blood Partial Pressure CO2 36.0 mmHg (35.0-45.0) 35.4 mmHg (35.0-45.0) Arterial Blood Partial Pressure O2 248.5 mmHg (75.0-100.0) H 86.5 mmHg (75.0-100.0) Arterial Blood HCO3 23.5 mmol/L (22.0-26.0) 24.2 mmol/L (22.0-26.0) Arterial Blood Oxygen Saturation 99.2 % (95-100) 96.3 % (95-100) Arterial Blood Base Excess -0.4 (-2-2) 0.6 (-2-2) Sudhakar Test Positive Positive White Blood Count 7.0 K/UL (4.8-10.8) Red Blood Count 3.71 M/UL (4.70-6.10) L Hemoglobin 11.0 G/DL (14.2-18.0) L Hematocrit 33.4 % (42.0-52.0) L Mean Corpuscular Volume 90 FL (80-99) Mean Corpuscular Hemoglobin 29.6 PG (27.0-31.0) Mean Corpuscular Hemoglobin Concent 32.9 G/DL (32.0-36.0) Red Cell Distribution Width 13.3 % (11.6-14.8) Platelet Count 200 K/UL (150-450) Mean Platelet Volume 6.0 FL (6.5-10.1) L Neutrophils (%) (Auto) 74.6 % (45.0-75.0) Lymphocytes (%) (Auto) 8.1 % (20.0-45.0) L Monocytes (%) (Auto) 16.4 % (1.0-10.0) H Eosinophils (%) (Auto) 0.1 % (0.0-3.0) Basophils (%) (Auto) 0.9 % (0.0-2.0) Activated Partial Thromboplast Time 61 SEC (23-33) H Sodium Level 140 MMOL/L (136-145) Potassium Level 3.7 MMOL/L (3.5-5.1) Chloride Level 106 MMOL/L (98-107) Carbon Dioxide Level 25 MMOL/L (21-32) Anion Gap 9 mmol/L (5-15) Blood Urea Nitrogen 14 mg/dL (7-18) Creatinine 0.9 MG/DL (0.55-1.30) Estimat Glomerular Filtration Rate mL/min (>60) Glucose Level 122 MG/DL (74-106) H Calcium Level 9.4 MG/DL (8.5-10.1) Phosphorus Level 2.9 MG/DL (2.5-4.9) Magnesium Level 1.9 MG/DL (1.8-2.4) Total Bilirubin 0.4 MG/DL (0.2-1.0) Aspartate Amino Transf (AST/SGOT) 28 U/L (15-37) Alanine Aminotransferase (ALT/SGPT) 65 U/L (12-78) Alkaline Phosphatase 240 U/L (46-116) H Total Protein 7.4 G/DL (6.4-8.2) Albumin 2.3 G/DL (3.4-5.0) L Globulin 5.1 g/dL Albumin/Globulin Ratio 0.5 (1.0-2.7) L Maria E Shine MD Jul 20, 2018 10:52
[2018-07-20] MEDS: levETIRAcetam 1,000mg/NS100ml IVPB SCH ×3 (11:24→21:37)
[2018-07-20] MEDS ORDERED: Acetaminophen 650mg/20.3ml NG PRN (11:30)
--- NOTE | 2018-07-20 12:14 | NUR ---
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 99.1 HR 106 RR 27 B/P 125/70 BIPAP 25/5 FIO2 30% PTT 76, ALK PHOS 240 IS: HEPARIN GTT VALPROIC ACID IV KEPPRA IV ICU STATUS
--- NOTE | 2018-07-20 12:30 | NUR ---
NURSE NOTES: NOTED LOOSE BM. KEPT CLEAN AND DRY. WILL CONTINUE TO MONITOR.
--- NOTE | 2018-07-20 13:00 | NUR ---
NURSE NOTES: PATIENT PULLED NGT OFF. SUCTIONED SECRETIONS. TOLERATING VENTI MASK. WILL CONTINUE TO MONITOR.
--- NOTE | 2018-07-20 13:15 | Infectious Diseases Prog Note ---
Assessment/Plan Assessment/Plan 72 yo male with PMHx of TBI, Seizure disorder, COPD, Encephalopathy, DM, HTN, CVA, Renal failure, CAD and Dysphagia s/p Peg who was brought to the ED on with intractable seizures. Respiratory failure Most probably due to seizures Active PNA unlikely Sputum Cx 07/12/18 - NF Bacteriuria UTI unlikely UCx - Staph h. S/P 2 days Vancomycin DVT right leg On Heparin TBI Seizure disorder COPD Encephalopathy DM HTN CVA Renal failure CAD Dysphagia s/p Peg Extubated 07/19/18 PLAN - Continue to monitor off abx 07/15/18 S/P Vancomycin and Zosyn #2 - Supportive care - Monitor CBC and Temps Subjective Allergies: Coded Allergies: HALOPERIDOL (Verified Allergy, Mild, [place] really bad, 07/05/16) Makes him irritable. THIORIDAZINE (Verified Allergy, Mild, [place] really bad, 07/05/16) Makes him violent TRAZODONE (Verified Allergy, Mild, [place] really bad, 07/05/16) Too strong; inability to move. Uncoded Allergies: PSYCHOTROPIC MEDICATION (Allergy, Mild, 08/13/14) Subjective Extubated not on VM Afebrile No Leukocytosis Objective Vital Signs Last 24 Hour Vital Signs Date Time Temp Pulse Resp B/P (MAP) Pulse Ox O2 Delivery O2 Flow Rate FiO2 07/20/18 12:23 99.2 07/20/18 12:00 101.0 95 24 128/78 100 Bi-pap 35 07/20/18 12:00 Venturi Mask Venturi Mask 07/20/18 11:00 106 15 138/77 100 Bi-pap 35 07/20/18 10:08 107 26 100 07/20/18 10:00 106 24 125/70 100 Bi-pap 35 07/20/18 09:15 95 27 97 Facial 35 07/20/18 09:00 104 23 132/79 97 Bi-pap 35 07/20/18 08:00 99.1 102 25 146/74 100 Bi-pap 35 07/20/18 08:00 100 07/20/18 08:00 35 07/20/18 08:00 Mechanical Ventilator Venturi Mask 07/20/18 07:15 104 26 99 Facial 35 07/20/18 07:15 Bi-pap 35 07/20/18 07:00 103 20 147/74 96 Bi-pap 35 07/20/18 06:00 96 20 133/70 96 Bi-pap 35 07/20/18 05:00 92 20 111/62 96 Bi-pap 35 07/20/18 04:53 91 19 96 Facial 35 07/20/18 04:00 35 07/20/18 04:00 98.1 96 21 139/76 100 Bi-pap 35 07/20/18 04:00 92 07/20/18 04:00 Mechanical Ventilator Venturi Mask 07/20/18 03:00 73 24 133/77 100 Bi-pap 35 07/20/18 02:40 87 21 97 Bi-pap 35 07/20/18 02:39 87 21 96 Facial 35 07/20/18 02:00 83 24 138/76 100 Bi-pap 35 07/20/18 01:10 77 20 100 Facial 40 07/20/18 01:00 78 24 152/77 100 Bi-pap 40 07/20/18 00:00 40 07/20/18 00:00 Mechanical Ventilator Bi-pap 07/20/18 00:00 99.3 80 21 113/67 100 Bi-pap 40 07/19/18 23:21 88 07/19/18 23:00 87 24 115/76 100 Bi-pap 40 07/19/18 22:33 88 27 90 Facial 40 07/19/18 22:08 99.3 07/19/18 22:01 152 109/83 07/19/18 22:00 88 24 113/71 95 Bi-pap 40 07/19/18 22:00 80 07/19/18 21:57 153 07/19/18 21:56 148 25 109/83 96 Bi-pap 40 07/19/18 21:00 151 28 110/76 98 Bi-pap 40 07/19/18 20:57 152 26 99 40 07/19/18 20:00 Mechanical Ventilator Venturi Mask 07/19/18 20:00 99.0 153 27 109/83 99 Bi-pap 35 07/19/18 20:00 35 07/19/18 19:41 155 30 94 Facial 60 07/19/18 19:00 152 22 109/61 97 Venturi Mask 30 07/19/18 18:59 153 07/19/18 18:43 95 Venturi Mask 10.0 35 07/19/18 18:00 155 27 171/32 94 Venturi Mask 30 07/19/18 17:00 102 19 127/72 100 Mechanical Ventilator 30 07/19/18 16:00 104 07/19/18 16:00 35 07/19/18 16:00 Mechanical Ventilator Venturi Mask 07/19/18 16:00 98.6 103 27 163/84 99 Mechanical Ventilator 30 07/19/18 15:00 103 19 161/114 100 Venturi Mask 30 07/19/18 14:00 101 24 144/83 94 Venturi Mask 30 07/19/18 13:36 100 Venturi Mask 10.0 35 07/19/18 13:28 99 28 100 Venturi Mask 10.0 35 Height (Feet): 6 Weight (Pounds): 170 Objective Gen: NAD, on VM HEENT: DMM, PERRL LUNGS: CTAB, No W/C CARDS: RRR, S1, S2, ABD: Soft, ND SKIN: Warm/dry, No rashes Laboratory Tests Test 07/19/18 20:30 07/20/18 04:00 07/20/18 09:20 07/20/18 11:30 Arterial Blood pH 7.432 (7.350-7.450) 7.452 (7.350-7.450) Arterial Blood Partial Pressure CO2 36.0 mmHg (35.0-45.0) 35.4 mmHg (35.0-45.0) Arterial Blood Partial Pressure O2 248.5 mmHg (75.0-100.0) H 86.5 mmHg (75.0-100.0) Arterial Blood HCO3 23.5 mmol/L (22.0-26.0) 24.2 mmol/L (22.0-26.0) Arterial Blood Oxygen Saturation 99.2 % (95-100) 96.3 % (95-100) Arterial Blood Base Excess -0.4 (-2-2) 0.6 (-2-2) Sudhakar Test Positive Positive White Blood Count 7.0 K/UL (4.8-10.8) Red Blood Count 3.71 M/UL (4.70-6.10) L Hemoglobin 11.0 G/DL (14.2-18.0) L Hematocrit 33.4 % (42.0-52.0) L Mean Corpuscular Volume 90 FL (80-99) Mean Corpuscular Hemoglobin 29.6 PG (27.0-31.0) Mean Corpuscular Hemoglobin Concent 32.9 G/DL (32.0-36.0) Red Cell Distribution Width 13.3 % (11.6-14.8) Platelet Count 200 K/UL (150-450) Mean Platelet Volume 6.0 FL (6.5-10.1) L Neutrophils (%) (Auto) 74.6 % (45.0-75.0) Lymphocytes (%) (Auto) 8.1 % (20.0-45.0) L Monocytes (%) (Auto) 16.4 % (1.0-10.0) H Eosinophils (%) (Auto) 0.1 % (0.0-3.0) Basophils (%) (Auto) 0.9 % (0.0-2.0) Activated Partial Thromboplast Time 61 SEC (23-33) H 76 SEC (23-33) H Sodium Level 140 MMOL/L (136-145) Potassium Level 3.7 MMOL/L (3.5-5.1) Chloride Level 106 MMOL/L (98-107) Carbon Dioxide Level 25 MMOL/L (21-32) Anion Gap 9 mmol/L (5-15) Blood Urea Nitrogen 14 mg/dL (7-18) Creatinine 0.9 MG/DL (0.55-1.30) Estimat Glomerular Filtration Rate mL/min (>60) Glucose Level 122 MG/DL (74-106) H Calcium Level 9.4 MG/DL (8.5-10.1) Phosphorus Level 2.9 MG/DL (2.5-4.9) Magnesium Level 1.9 MG/DL (1.8-2.4) Total Bilirubin 0.4 MG/DL (0.2-1.0) Aspartate Amino Transf (AST/SGOT) 28 U/L (15-37) Alanine Aminotransferase (ALT/SGPT) 65 U/L (12-78) Alkaline Phosphatase 240 U/L (46-116) H Total Protein 7.4 G/DL (6.4-8.2) Albumin 2.3 G/DL (3.4-5.0) L Globulin 5.1 g/dL Albumin/Globulin Ratio 0.5 (1.0-2.7) L Current Medications Medications (Trade) Dose Ordered Sig/Jesi Route PRN Reason Start Time Stop Time Status Last Admin Dose Admin Acetaminophen (Tylenol) 650 mg Q6H PRN NG FOR TEMP > 100 OR PAIN 1-07/20/18 11:30 08/19/18 11:29 07/20/18 11:53 Chlorhexidine Gluconate (Candie-Hex 2%) 1 applic DAILY@2000 TOPIC 07/16/18 20:00 08/15/18 19:59 07/19/18 21:06 Dextrose (Dextrose 50%) 25 ml Q30M PRN IV Hypoglycemia 07/13/18 01:15 08/12/18 01:14 Dextrose (Dextrose 50%) 50 ml Q30M PRN IV Hypoglycemia 07/13/18 01:15 08/12/18 01:14 Famotidine (Pepcid I.v.) 20 mg Q12HR IVP 07/13/18 09:00 08/12/18 08:59 07/20/18 09:28 Heparin Sodium/ Dextrose 500 ml @ 34.989 mls/ hr ADJUST PER PROTOCOL IV 07/20/18 05:30 08/18/18 04:29 07/20/18 05:31 Insulin Aspart (NovoLOG) EVERY 6 HOURS SUBQ 07/14/18 00:00 08/12/18 12:29 Levetiracetam 100 ml @ 400 mls/hr Q12H IVPB 07/14/18 21:15 08/13/18 21:14 07/20/18 10:37 Levetiracetam 100 ml @ 400 mls/hr Q12HR IVPB 07/14/18 21:00 08/13/18 20:59 07/20/18 11:24 Valproate Sodium 1000 mg/Dextrose 65 ml @ 32.5 mls/hr Q12HR@0100,1300 IV 07/14/18 13:00 08/13/18 12:59 07/20/18 12:36 Matteo Hunt MD Jul 20, 2018 13:15
--- NOTE | 2018-07-20 13:30 | NUR ---
NURSE NOTES: SEEN BY DR BRITT. MADE AWARE OF TEMP. WILL CONTINUE TO MONITOR.
--- NOTE | 2018-07-20 15:30 | NUR ---
NURSE NOTES: SEEN BY DR CORTEZ WITH NEW ORDER. AWARE PATIENT PULLED NGT. WILL CONTINUE TO MONITOR.
--- NOTE | 2018-07-20 15:55 | Internal Med Progress Note ---
Subjective Physician Name Will Mejía Attending Physician Will Mejía MD Current Medications Medications (Trade) Dose Ordered Sig/Jesi Route PRN Reason Start Time Stop Time Status Last Admin Dose Admin Acetaminophen (Tylenol) 650 mg Q6H PRN NG FOR TEMP > 100 OR PAIN 1-6 07/20/18 11:30 08/19/18 11:29 07/20/18 11:53 Chlorhexidine Gluconate (Candie-Hex 2%) 1 applic DAILY@2000 TOPIC 07/16/18 20:00 08/15/18 19:59 07/19/18 21:06 Dextrose (Dextrose 50%) 25 ml Q30M PRN IV Hypoglycemia 07/13/18 01:15 08/12/18 01:14 Dextrose (Dextrose 50%) 50 ml Q30M PRN IV Hypoglycemia 07/13/18 01:15 08/12/18 01:14 Famotidine (Pepcid I.v.) 20 mg Q12HR IVP 07/13/18 09:00 08/12/18 08:59 07/20/18 09:28 Heparin Sodium/ Dextrose 500 ml @ 34.989 mls/ hr ADJUST PER PROTOCOL IV 07/20/18 05:30 08/18/18 04:29 07/20/18 05:31 Insulin Aspart (NovoLOG) EVERY 6 HOURS SUBQ 07/14/18 00:00 08/12/18 12:29 Levetiracetam 100 ml @ 400 mls/hr Q12H IVPB 07/14/18 21:15 08/13/18 21:14 07/20/18 10:37 Levetiracetam 100 ml @ 400 mls/hr Q12HR IVPB 07/14/18 21:00 08/13/18 20:59 07/20/18 11:24 Valproate Sodium 1000 mg/Dextrose 65 ml @ 32.5 mls/hr Q12HR@0100,1300 IV 07/14/18 13:00 08/13/18 12:59 07/20/18 12:36 Allergies: Coded Allergies: HALOPERIDOL (Verified Allergy, Mild, [place] really bad, 07/05/16) Makes him irritable. THIORIDAZINE (Verified Allergy, Mild, [place] really bad, 07/05/16) Makes him violent TRAZODONE (Verified Allergy, Mild, [place] really bad, 07/05/16) Too strong; inability to move. Uncoded Allergies: PSYCHOTROPIC MEDICATION (Allergy, Mild, 08/13/14) Subjective In ICU, awake, alert, responsive, positive diarrhea, extubated yesterday, pull out the NG tube today Objective Last Vital Signs Date Time Temp Pulse Resp B/P (MAP) Pulse Ox O2 Delivery O2 Flow Rate FiO2 07/20/18 14:00 88 25 97/62 99 Bi-pap 35 07/20/18 12:23 99.2 07/19/18 18:43 10.0 Laboratory Tests Test 07/19/18 20:30 07/20/18 04:00 07/20/18 09:20 07/20/18 11:30 Arterial Blood pH 7.432 (7.350-7.450) 7.452 (7.350-7.450) Arterial Blood Partial Pressure CO2 36.0 mmHg (35.0-45.0) 35.4 mmHg (35.0-45.0) Arterial Blood Partial Pressure O2 248.5 mmHg (75.0-100.0) H 86.5 mmHg (75.0-100.0) Arterial Blood HCO3 23.5 mmol/L (22.0-26.0) 24.2 mmol/L (22.0-26.0) Arterial Blood Oxygen Saturation 99.2 % (95-100) 96.3 % (95-100) Arterial Blood Base Excess -0.4 (-2-2) 0.6 (-2-2) Sudhakar Test Positive Positive White Blood Count 7.0 K/UL (4.8-10.8) Red Blood Count 3.71 M/UL (4.70-6.10) L Hemoglobin 11.0 G/DL (14.2-18.0) L Hematocrit 33.4 % (42.0-52.0) L Mean Corpuscular Volume 90 FL (80-99) Mean Corpuscular Hemoglobin 29.6 PG (27.0-31.0) Mean Corpuscular Hemoglobin Concent 32.9 G/DL (32.0-36.0) Red Cell Distribution Width 13.3 % (11.6-14.8) Platelet Count 200 K/UL (150-450) Mean Platelet Volume 6.0 FL (6.5-10.1) L Neutrophils (%) (Auto) 74.6 % (45.0-75.0) Lymphocytes (%) (Auto) 8.1 % (20.0-45.0) L Monocytes (%) (Auto) 16.4 % (1.0-10.0) H Eosinophils (%) (Auto) 0.1 % (0.0-3.0) Basophils (%) (Auto) 0.9 % (0.0-2.0) Activated Partial Thromboplast Time 61 SEC (23-33) H 76 SEC (23-33) H Sodium Level 140 MMOL/L (136-145) Potassium Level 3.7 MMOL/L (3.5-5.1) Chloride Level 106 MMOL/L (98-107) Carbon Dioxide Level 25 MMOL/L (21-32) Anion Gap 9 mmol/L (5-15) Blood Urea Nitrogen 14 mg/dL (7-18) Creatinine 0.9 MG/DL (0.55-1.30) Estimat Glomerular Filtration Rate mL/min (>60) Glucose Level 122 MG/DL (74-106) H Calcium Level 9.4 MG/DL (8.5-10.1) Phosphorus Level 2.9 MG/DL (2.5-4.9) Magnesium Level 1.9 MG/DL (1.8-2.4) Total Bilirubin 0.4 MG/DL (0.2-1.0) Aspartate Amino Transf (AST/SGOT) 28 U/L (15-37) Alanine Aminotransferase (ALT/SGPT) 65 U/L (12-78) Alkaline Phosphatase 240 U/L (46-116) H Total Protein 7.4 G/DL (6.4-8.2) Albumin 2.3 G/DL (3.4-5.0) L Globulin 5.1 g/dL Albumin/Globulin Ratio 0.5 (1.0-2.7) L Intake and Output 07/19/18 07/20/18 19:00 07:00 Intake Total 1251.432 ml 1158.12 ml Output Total 875 ml 690 ml Balance 376.432 ml 468.12 ml Intake Free Water 50 ml IV Total 651.432 ml 658.12 ml Tube Feeding 600 ml 450 ml Output Urine Total 875 ml 690 ml # Bowel Movements 2 Objective General: No acute distress, awake and Responsive, on Ventimask. HEENT: NCAT, sclera anicteric, PERRL, EOMI. Neck: Supple, no significant jugular venous distention, Lungs: Fair inspiratory effort, decreased air at the bases no Wheeze or Rales. Heart: Regular rate and rhythm, normal S1/S2, no murmur. Abdomen: soft, nontender, nondistended. Normoactive bowel sounds. : Sims Cath. Extremities: No Cyanosis , clubbing or edema. Neuro: A&O x 2, Able to move all extremities Skin: warm, no rash. Assessment/Plan Assessment/Plan (1) Acute metabolic encephalopathy (2) Acute respiratory failure (3) Seizure disorder (4) COPD (chronic obstructive pulmonary disease) (5) Diabetes mellitus (6) Prostate cancer, primary, 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 site (7) Chronic low back pain PLAN: Monitor laboratory as well as culture including C. difficile toxin culture VT prophylaxis: heparin drip Bedside swallow study Follow-up with neurology as well as critical critical care recommendation PT mobility once the patient more stable CODE STATUS full code monitor off antibiotics Wlil Mejía MD Jul 20, 2018 15:55
--- NOTE | 2018-07-20 16:30 | NUR ---
NURSE NOTES: ST FLOWERS DONE. SEE SEPARATE NOTES.
--- NOTE | 2018-07-20 16:31 | NUR ---
ST NOTE: BEDSIDE SWALLOW EVAL RECEIVED BEDSIDE SWALLOW EVAL ORDER CHART REVIEWED PRIOR THE EVALUATION PT IS A 72-YEAR-OLD MALE WHO WAS TRANSFERRED FROM [facility] DUE TO RESPIRATORY FAILURE, INTUBATED FOR 7 DAYS. DYSPHAGIA RISK FACTORS: H/O TIA/CVA,EPILEPSY, GERD, COPD, DYSPHAGIA, DMII, HTN, S/P INTUBATION, POSS ASPIRATION, TBI, COLLAPSED VERTEBRA PLOF: PT [facility]ID[facility] AT [facility]. PER CHART, PT WAS MECH SOFT WITH NECTAR THICK LIQUIDS DIET. NO POLST WAS NOTED IN THE CHART CURRENT STATUS: PT SEEN AT BEDSIDE IN PM. ALERT, PT IS ON VENTURI MASK(FIO2: 35%), SEEMS CONFUSED. PER PT, SOMETHING IS IN HIS THROAT, COMPLETED OROPHARYNGEAL SUCTION, SIGNIFICANT ORAL SECRETION WAS NOTED. DUE PT PT HAS H/O CVA, TIA, SEIZURE, AND STILL REQUIRED DEEP ORAL SUCTION TO CLEAR THE SECRETION, PT IS NOT READY FOR ANY PO TRIAL AT THIS TIME, AND NOT SAFE FOR PO INTAKE. RECOMMENDATIONS: 1. CONTINUE STRICT NPO. 2. NGT FEEDING 3. ORAL OR OROPHARYNGEAL SUCTION PRN. 4. MODIFIED BARIUM SWALLOW STUDY D/W RNRAQUEL AND THE STAFF POSTED NPO SIGN
--- NOTE | 2018-07-20 17:00 | NUR ---
NURSE NOTES: TRIED TO PUT NGT IN WITH ANOTHER RN, AIDAN BUT COULDN'T GET IT IN.
--- NOTE | 2018-07-20 17:45 | Diagnostic Imaging Report ---
Indication: Dyspnea Comparison: 07/18/2018 A single view chest radiograph was obtained. Findings: Heart size is normal. Nasogastric tube and endotracheal tube appear in good position. PICC line is again noted in good position. Pulmonary vascularity is mildly prominent without definite CHF. No infiltrate seen. IMPRESSION: No significant change from the previous exam
--- NOTE | 2018-07-20 17:47 | Diagnostic Imaging Report ---
Indication: Post nasogastric tube placement Technique: Supine view of the upper abdomen Comparison: 07/13/2018 Findings: There is a nasogastric tube in place, tip projected at the level of the gastric antrum bowel gas pattern is unremarkable. Impression: Satisfactory nasogastric tube placement
--- NOTE | 2018-07-20 17:47 | Diagnostic Imaging Report ---
Indication: Dyspnea Technique: One view of the chest Comparison: 07/19/2018 Findings: Interim removal of endotracheal tube. Stable satisfactory position of nasogastric tube, left arm PICC. There is minimal interstitial edema which appears stable or perhaps slightly increased from the prior exam Impression: Interim extubation Mild interstitial edema, stable or perhaps slightly increased from previous study
--- NOTE | 2018-07-20 18:30 | NUR ---
NURSE NOTES: TRIED TO INSERT THE NGT 2ND TIME BUT STILL FAILED. WILL CONTINUE TO MONITOR.
--- NOTE | 2018-07-20 19:38 | NUR ---
HAND-OFF: Report given to Cj Lange RN.
--- NOTE | 2018-07-20 20:25 | NUR ---
NURSE NOTES: Received report from Derrick TAMAYO. Received patient in bed restless with episode, pt teaching provided. Encouraged patient to verbalize needs, fears and feelings to staff. of trying to pull out BIPAP. placed BIPAP 25/5 Fi02 35 satting 95%. Suctioned by RT. Patient awake,alert able to make needs known to staff. Denies any pain or discomfort. HOB elevated. Sims draining. Bilateral soft wrist restraint checked. Will continue to monitor patient. On Seizure precaution. Left upper arm PICC running Heparin drip @ 22units/kg/hr.Will continue plan of care. Addendum: 07/20/18 at 2304 by LIBERTY HARRIS RN Per report Pt Pulled NGT, will try to insert NGT.
[2018-07-20] MEDS: Dyna-Hex 2% Top Sol 2oz TOPIC SCH (20:59)
--- NOTE | 2018-07-20 22:01 | NUR ---
Victor M Pharmacist aware that when i scanned the the label for Levetiracetam 500mg IV its look like i gave the morning dose because the previous nurse scanned the dose timed 2114. charge nurse aware.
--- NOTE | 2018-07-20 22:25 | NUR ---
NURSE NOTES: Meds given tolerated well. Bed bath given tolerated well. No s/s of acute distress noted. will continue plan of care.
[2018-07-20] MEDS ORDERED: Morphine Sulfate 4mg/ml Inj (IV USE ONLY) IVP PRN (23:45)
[2018-07-21] VITALS (19 sets, daily range): BP systolic 106–144; BP diastolic 57–86
[2018-07-21] MEDS: Valproate Sodium INJ 1,000 MG in D5W 55 ML IV SCH ×2 (00:25→12:15)
--- NOTE | 2018-07-21 00:25 | NUR ---
NURSE NOTES: Patient with complained of 7/10 generalized body pain repositioned in bed, talk therapy provided and TV offered not effective. Morphine 4mg IVP given. On BIPAP 25/5 fi02 35% satting 98%. HOB elevated. Continue on Heparin drip 22units/kg/hr. SR on lens assistant HR 81. Seizure precaution maintained and observed. Will continue plan of acre.
--- NOTE | 2018-07-21 02:25 | NUR ---
NURSE NOTES: Patient in bed awake, watching TV. Repositioned. Sims draining. Continue on BIPAP 24/ fi02 35% satting 100%. Frequent visual checks continued. Will continue to monitor patient.
--- NOTE | 2018-07-21 03:00 | NUR ---
NURSE NOTES: attempted to insert NGT but patient started to have copious secretion. suctioned pt. will try again
--- NOTE | 2018-07-21 04:00 | NUR ---
NURSE NOTES: attempted to insert the NGT second time but the pt refused, explained the importance v/s risk and benefits still refused. will try again
--- NOTE | 2018-07-21 05:29 | Pulmonolgy Critical Care Note ---
Critical Care - Asmt/Plan Problems: (1) Acute metabolic encephalopathy (2) Acute respiratory failure (3) Seizure disorder (4) COPD (chronic obstructive pulmonary disease) (5) Diabetes mellitus (6) Prostate cancer, primary, 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 site (7) Chronic low back pain Respiratory: monitor respiratory rate, adjust FIO2, CXR Cardiac: continue to monitor HR/BP Renal: F/U I&O, keep IV fluid, check electrolytes Infectious Disease: check cultures, continue antibiotics Gastrointestinal: continue feedings/current rate Endocrine: monitor blood sugar, check TSH Hematologic: monitor H/H, transfuse if hgb<8.5 Neurologic: PRN Ativan, keep patient comfortable Affect: PRN ativan Prophylaxis: Protonix, Heparin Notes Reviewed: cardio, renal Discussed with: nurses, consultants, caseworker protective servicesonline advertising manager - Objective Last 24 Hour Vital Signs Date Time Temp Pulse Resp B/P (MAP) Pulse Ox O2 Delivery O2 Flow Rate FiO2 07/21/18 05:06 96 20 97 Facial 35 07/21/18 04:00 98.2 101 21 140/80 100 Bi-pap 07/21/18 04:00 Venturi Mask Bi-pap 07/21/18 04:00 101 07/21/18 03:34 99 21 137/76 Bi-pap 35 07/21/18 03:00 86 23 121/71 96 Bi-pap 35 07/21/18 02:53 90 20 96 Facial 35 07/21/18 02:00 91 23 139/72 95 Bi-pap 35 07/21/18 01:08 92 20 96 Facial 35 07/21/18 01:00 92 23 126/73 95 Bi-pap 35 07/21/18 00:55 98.2 07/21/18 00:00 Venturi Mask Bi-pap 07/21/18 00:00 97 07/21/18 00:00 98.0 95 19 144/62 99 Bi-pap 35 07/20/18 23:00 92 23 120/75 100 Bi-pap 35 07/20/18 22:42 83 22 95 Facial 35 07/20/18 22:00 92 23 122/75 100 Bi-pap 35 07/20/18 21:00 96 20 112/84 100 Bi-pap 35 07/20/18 20:39 99 20 99 Facial 35 07/20/18 20:00 94 07/20/18 20:00 Venturi Mask Venturi Mask 07/20/18 20:00 98.2 95 23 134/82 100 Bi-pap 35 07/20/18 19:13 98 Venturi Mask 10.0 35 07/20/18 19:00 101 11 155/83 98 Bi-pap 35 07/20/18 18:00 104 29 143/86 93 Bi-pap 35 07/20/18 17:00 98 25 143/80 97 Bi-pap 35 07/20/18 16:00 90 07/20/18 16:00 Venturi Mask Venturi Mask 07/20/18 16:00 98.2 83 23 146/74 99 Bi-pap 35 07/20/18 15:00 84 24 146/74 96 Bi-pap 35 07/20/18 14:00 88 25 97/62 99 Bi-pap 35 07/20/18 13:00 94 23 122/71 99 Bi-pap 35 07/20/18 12:23 99.2 07/20/18 12:00 101.0 95 24 128/78 100 Bi-pap 35 07/20/18 12:00 Venturi Mask Venturi Mask 07/20/18 12:00 96 07/20/18 11:00 106 15 138/77 100 Bi-pap 35 07/20/18 10:08 107 26 100 07/20/18 10:00 106 24 125/70 100 Bi-pap 35 07/20/18 09:15 95 27 97 Facial 35 07/20/18 09:00 104 23 132/79 97 Bi-pap 35 07/20/18 08:00 99.1 102 25 146/74 100 Bi-pap 35 07/20/18 08:00 100 07/20/18 08:00 35 07/20/18 08:00 Mechanical Ventilator Venturi Mask 07/20/18 07:15 104 26 99 Facial 35 07/20/18 07:15 Bi-pap 35 07/20/18 07:00 103 20 147/74 96 Bi-pap 35 07/20/18 06:00 96 20 133/70 96 Bi-pap 35 Status: awake Condition: critical, improving HEENT: atraumatic Lungs: rales, rhonchi Heart: HR/BP stable, regular Abdomen: soft, active bowel sounds Extremities: no C/C/E, edema Decubiti: stage Accucheck: 90 Critical Care - Subjective ROS Limited/Unobtainable: Yes Interval Events: needs bipap now Condition: critical FI02: 35 Vent Support Breath Rate: 14 Vent Support Mode: BiLevel Vent Tidal Volume: 600 Sputum Amount: Small PEEP: 5.0 PIP: 13 Tube Feeding Amount: 0 I&O: Intake and Output 07/20/18 07/21/18 18:59 06:59 Intake Total 1942.68 ml 557.04 ml Output Total 765 ml 930 ml Balance 1177.68 ml -372.96 ml IV Total 1692.68 ml 557.04 ml Tube Feeding 250 ml Output Urine Total 765 ml 930 ml # Bowel Movements 4 1 ET-Tube: 7.0 ET Position: 23 Maria E Shine MD Jul 21, 2018 05:29
[2018-07-21 05:41] LABS: BASOPHILS % (AUTO) 0.8 % (0.0-2.0); EOSINOPHILS % (AUTO) 1.3 % (0.0-3.0); HEMATOCRIT 33.8 % (42.0-52.0); HEMOGLOBIN 11.2 G/DL (14.2-18.0); LYMPHOCYTES % (AUTO) 10.6 % (20.0-45.0); MEAN CORPUSCULAR VOLUME 90 FL (80-99); MONOCYTES % (AUTO) 18.5 % (1.0-10.0); NEUTROPHILS % (AUTO) 68.8 % (45.0-75.0); PLATELET COUNT 209 K/UL (150-450); RED BLOOD COUNT 3.76 M/UL (4.70-6.10); RED CELL DISTRIBUTION WIDTH 13.3 % (11.6-14.8)
--- NOTE | 2018-07-21 05:44 | NUR ---
NURSE NOTES: called lab for PTT result, will follow up
[2018-07-21 05:57] LABS: ALANINE AMINOTRANSFERASE 47 U/L (12-78); ALBUMIN 2.3 G/DL (3.4-5.0); ALBUMIN/GLOBULIN RATIO 0.5 (1.0-2.7); ALKALINE PHOSPHATASE 189 U/L (46-116); ANION GAP 4 mmol/L (5-15); ASPARTATE AMINO TRANSFERASE 16 U/L (15-37); BILIRUBIN,TOTAL 0.5 MG/DL (0.2-1.0); BLOOD UREA NITROGEN 13 mg/dL (7-18); CALCIUM 9.4 MG/DL (8.5-10.1); CARBON DIOXIDE 31 MMOL/L (21-32); CHLORIDE 107 MMOL/L (98-107); CREATININE 0.8 MG/DL (0.55-1.30); POTASSIUM 3.2 MMOL/L (3.5-5.1); SODIUM 141 MMOL/L (136-145)
[2018-07-21] MEDS: NovoLOG Insulin Flexpen SUBQ SCH ×4 (06:00→17:09)
[2018-07-21] MEDS ORDERED: D5 1/2NS 1,000 ML IV SCH (06:15)
[2018-07-21] MEDS: Heparin 25,000u/D5W 500ml 500 ML IV SCH (07:06)
--- NOTE | 2018-07-21 07:22 | NUR ---
HAND-OFF: Report given to Deisy RN.Patient on D5 1/2 NS at 50cc/hr
--- NOTE | 2018-07-21 07:23 | NUR ---
NURSE NOTES: Received patient in bed. On continuous bipap, no respiratory distress at this time. With ongoing heparin drip. Patient is awake, confused, bilateral soft wrist restraints noted. Will continue plan of care.
--- NOTE | 2018-07-21 07:48 | NUR ---
NURSE NOTES: Informed Dr. Shine regarding today's ABG result. With no new order obtained at this time.
--- NOTE | 2018-07-21 08:16 | Diagnostic Imaging Report ---
EXAM: XR Chest, 1 View CLINICAL HISTORY: DYSPNEA TECHNIQUE: Frontal view of the chest. COMPARISON: Chest x-ray dated 07/20/18 and 07/15/18 FINDINGS: Lungs: Interval development of patchy hazy opacities throughout the right mid and lower lung, concerning for developing airspace disease. Stable appearance of prominent interstitial markings. Pleural space: Unremarkable. The costophrenic angles are sharp. No visible pneumothorax. Heart: Unremarkable. No cardiomegaly. Mediastinum: Unremarkable. Bones/joints: Unremarkable. Tubes, lines and devices: Telemetry leads overlie the thorax. IMPRESSION: 1. Interval development of patchy hazy opacities throughout the right mid and lower lung, concerning for developing airspace disease. 2. Stable appearance of prominent interstitial markings. This may represent mild interstitial edema or interstitial pneumonitis.
[2018-07-21] MEDS: levETIRAcetam 1,000mg/NS100ml IVPB SCH (08:44)
--- NOTE | 2018-07-21 09:00 | NUR ---
NURSE NOTES: Remains on bilateral soft wrist restraints. No respiratory distress at this time.
--- NOTE | 2018-07-21 09:29 | Infectious Diseases Prog Note ---
Assessment/Plan Assessment/Plan 72 yo male with PMHx of TBI, Seizure disorder, COPD, Encephalopathy, DM, HTN, CVA, Renal failure, CAD and Dysphagia s/p Peg who was brought to the ED on with intractable seizures. Fever- Probable new PNA (+secretions) -07/21 CXR: Interval development of patchy hazy opacities throughout the right mid and lower lung, concerning for developing airspace disease. Stable appearance of prominent interstitial markings. This may represent mild interstitial edema or interstitial pneumonitis. -p cx MSSA No leukocytosis Respiratory failure Most probably due to seizures Active PNA unlikely Sputum Cx 07/12/18 - NF Bacteriuria UTI unlikely UCx - Staph h. S/P 2 days Vancomycin DVT right leg On Heparin TBI Seizure disorder COPD Encephalopathy DM HTN CVA Renal failure CAD Dysphagia s/p Peg Extubated 07/19/18 PLAN - Start Ancef for probable MSSA PNA 07/15/18 S/P Vancomycin and Zosyn #2 - Supportive care - Monitor CBC and Temps -sp cx Subjective Allergies: Coded Allergies: HALOPERIDOL (Verified Allergy, Mild, [place] really bad, 07/05/16) Makes him irritable. THIORIDAZINE (Verified Allergy, Mild, [place] really bad, 07/05/16) Makes him violent TRAZODONE (Verified Allergy, Mild, [place] really bad, 07/05/16) Too strong; inability to move. Uncoded Allergies: PSYCHOTROPIC MEDICATION (Allergy, Mild, 08/13/14) Subjective afebrile in ~24hrs no leukocytosis Objective Vital Signs Last 24 Hour Vital Signs Date Time Temp Pulse Resp B/P (MAP) Pulse Ox O2 Delivery O2 Flow Rate FiO2 07/21/18 08:45 99 22 97 Facial 35 07/21/18 08:00 35 07/21/18 08:00 98.6 93 25 121/64 95 Bi-pap 07/21/18 08:00 Bi-pap 07/21/18 07:00 97 21 114/64 Bi-pap 35 07/21/18 06:57 99 Bi-pap 35 07/21/18 06:55 94 21 99 Facial 35 07/21/18 06:00 103 20 128/74 94 Bi-pap 35 07/21/18 05:06 96 20 97 Facial 35 07/21/18 05:00 103 20 106/57 94 Bi-pap 35 07/21/18 04:00 98.2 101 21 140/80 100 Bi-pap 07/21/18 04:00 Venturi Mask Bi-pap 07/21/18 04:00 35 07/21/18 04:00 101 07/21/18 03:34 99 21 137/76 Bi-pap 35 07/21/18 03:00 86 23 121/71 96 Bi-pap 35 07/21/18 02:53 90 20 96 Facial 35 07/21/18 02:00 91 23 139/72 95 Bi-pap 35 07/21/18 01:08 92 20 96 Facial 35 07/21/18 01:00 92 23 126/73 95 Bi-pap 35 07/21/18 00:55 98.2 07/21/18 00:00 Venturi Mask Bi-pap 07/21/18 00:00 35 07/21/18 00:00 97 07/21/18 00:00 98.0 95 19 144/62 99 Bi-pap 35 07/20/18 23:00 92 23 120/75 100 Bi-pap 35 07/20/18 22:42 83 22 95 Facial 35 07/20/18 22:00 92 23 122/75 100 Bi-pap 35 07/20/18 21:00 96 20 112/84 100 Bi-pap 35 07/20/18 20:39 99 20 99 Facial 35 07/20/18 20:00 94 07/20/18 20:00 Venturi Mask Venturi Mask 07/20/18 20:00 35 07/20/18 20:00 98.2 95 23 134/82 100 Bi-pap 35 07/20/18 19:13 98 Simple Mask 10.0 35 07/20/18 19:00 101 11 155/83 98 Bi-pap 35 07/20/18 18:00 104 29 143/86 93 Bi-pap 35 07/20/18 17:00 98 25 143/80 97 Bi-pap 35 07/20/18 16:00 90 07/20/18 16:00 Venturi Mask Venturi Mask 07/20/18 16:00 98.2 83 23 146/74 99 Bi-pap 35 07/20/18 15:00 84 24 146/74 96 Bi-pap 35 07/20/18 14:00 88 25 97/62 99 Bi-pap 35 07/20/18 13:00 94 23 122/71 99 Bi-pap 35 07/20/18 12:23 99.2 07/20/18 12:00 101.0 95 24 128/78 100 Bi-pap 35 07/20/18 12:00 Venturi Mask Venturi Mask 07/20/18 12:00 96 07/20/18 11:00 106 15 138/77 100 Bi-pap 35 07/20/18 10:08 107 26 100 07/20/18 10:00 106 24 125/70 100 Bi-pap 35 Height (Feet): 6 Weight (Pounds): 170 Objective Gen: NAD, on VM HEENT: DMM, PERRL LUNGS: CTAB, No W/C CARDS: RRR, S1, S2, ABD: Soft, ND SKIN: Warm/dry, No rashes Laboratory Tests Test 07/20/18 09:20 07/20/18 11:30 07/21/18 05:20 07/21/18 07:40 Arterial Blood pH 7.452 (7.350-7.450) 7.477 (7.350-7.450) Arterial Blood Partial Pressure CO2 35.4 mmHg (35.0-45.0) 38.1 mmHg (35.0-45.0) Arterial Blood Partial Pressure O2 86.5 mmHg (75.0-100.0) 57.6 mmHg (75.0-100.0) L Arterial Blood HCO3 24.2 mmol/L (22.0-26.0) 27.5 mmol/L (22.0-26.0) H Arterial Blood Oxygen Saturation 96.3 % (95-100) 89.0 % (95-100) *L Arterial Blood Base Excess 0.6 (-2-2) 3.9 (-2-2) H Sudhakar Test Positive Positive Activated Partial Thromboplast Time 76 SEC (23-33) H 72 SEC (23-33) H White Blood Count 7.0 K/UL (4.8-10.8) Red Blood Count 3.76 M/UL (4.70-6.10) L Hemoglobin 11.2 G/DL (14.2-18.0) L Hematocrit 33.8 % (42.0-52.0) L Mean Corpuscular Volume 90 FL (80-99) Mean Corpuscular Hemoglobin 29.8 PG (27.0-31.0) Mean Corpuscular Hemoglobin Concent 33.2 G/DL (32.0-36.0) Red Cell Distribution Width 13.3 % (11.6-14.8) Platelet Count 209 K/UL (150-450) Mean Platelet Volume 5.5 FL (6.5-10.1) L Neutrophils (%) (Auto) 68.8 % (45.0-75.0) Lymphocytes (%) (Auto) 10.6 % (20.0-45.0) L Monocytes (%) (Auto) 18.5 % (1.0-10.0) H Eosinophils (%) (Auto) 1.3 % (0.0-3.0) Basophils (%) (Auto) 0.8 % (0.0-2.0) Sodium Level 141 MMOL/L (136-145) Potassium Level 3.2 MMOL/L (3.5-5.1) L Chloride Level 107 MMOL/L (98-107) Carbon Dioxide Level 31 MMOL/L (21-32) Anion Gap 4 mmol/L (5-15) L Blood Urea Nitrogen 13 mg/dL (7-18) Creatinine 0.8 MG/DL (0.55-1.30) Estimat Glomerular Filtration Rate mL/min (>60) Glucose Level 96 MG/DL (74-106) Calcium Level 9.4 MG/DL (8.5-10.1) Total Bilirubin 0.5 MG/DL (0.2-1.0) Aspartate Amino Transf (AST/SGOT) 16 U/L (15-37) Alanine Aminotransferase (ALT/SGPT) 47 U/L (12-78) Alkaline Phosphatase 189 U/L (46-116) H Pro-B-Type Natriuretic Peptide 1130 pg/mL (0-125) H Total Protein 7.2 G/DL (6.4-8.2) Albumin 2.3 G/DL (3.4-5.0) L Globulin 4.9 g/dL Albumin/Globulin Ratio 0.5 (1.0-2.7) L Current Medications Medications (Trade) Dose Ordered Sig/Jesi Route PRN Reason Start Time Stop Time Status Last Admin Dose Admin Acetaminophen (Tylenol) 650 mg Q6H PRN NG FOR TEMP > 100 OR PAIN 1-6 6/7/19 11:30 08/19/18 11:29 07/20/18 11:53 Chlorhexidine Gluconate (Candie-Hex 2%) 1 applic DAILY@2000 TOPIC 07/16/18 20:00 08/15/18 19:59 07/20/18 20:59 Dextrose (Dextrose 50%) 25 ml Q30M PRN IV Hypoglycemia 07/13/18 01:15 08/12/18 01:14 Dextrose (Dextrose 50%) 50 ml Q30M PRN IV Hypoglycemia 07/13/18 01:15 08/12/18 01:14 Dextrose/Sodium Chloride 1,000 ml @ 50 mls/hr Q20H IV 07/21/18 06:15 08/20/18 06:14 07/21/18 06:34 Famotidine (Pepcid I.v.) 20 mg Q12HR IVP 07/13/18 09:00 08/12/18 08:59 07/21/18 08:44 Heparin Sodium/ Dextrose 500 ml @ 34.989 mls/ hr ADJUST PER PROTOCOL IV 07/20/18 05:30 08/18/18 04:29 07/21/18 07:06 Insulin Aspart (NovoLOG) EVERY 6 HOURS SUBQ 07/14/18 00:00 08/12/18 12:29 Levetiracetam 100 ml @ 400 mls/hr Q12H IVPB 07/14/18 21:15 08/13/18 21:14 07/20/18 21:59 Levetiracetam 100 ml @ 400 mls/hr Q12HR IVPB 07/14/18 21:00 08/13/18 20:59 07/21/18 08:44 Morphine Sulfate (Morphine Sulfate) 4 mg Q4H PRN IVP For Pain 07/20/18 23:45 07/27/18 23:44 07/21/18 00:25 Valproate Sodium 1000 mg/Dextrose 65 ml @ 32.5 mls/hr Q12HR@0100,1300 IV 07/14/18 13:00 08/13/18 12:59 07/21/18 00:25 La Nena Casey M.D. Jul 21, 2018 09:29
[2018-07-21] MEDS ORDERED: ceFAZolin sod 1 GM in D5W 55 ML IVPB SCH ×2 (10:00→18:00)
[2018-07-21] MEDS ORDERED: Heparin 25,000u/D5W 500ml 500 ML IV SCH ×2 (10:45→20:15)
--- NOTE | 2018-07-21 11:00 | NUR ---
NURSE NOTES: Remains on bipap, with FiO2 of 35%. No respiratory distress noted. Will continue to monitor.
--- NOTE | 2018-07-21 11:02 | NUR ---
NURSE NOTES: First dose of Ancef 1g IV given. Will monitor for any adverse reaction.
--- NOTE | 2018-07-21 13:00 | NUR ---
NURSE NOTES: Noted patient trying to remove bipap machine. Patient is trying to reach his head to his arms that is on restraints. Re-educated patient that he needs to keep the bipap on. Patient verbalized understanding at this time.
--- NOTE | 2018-07-21 19:15 | NUR ---
TRANSFER TO FLOOR: Patient transferred to SDU room 237-1, per Dr. Shine. Report given to Shauna Corona RN. No belongings. Medications given to Shauna Corona RN. On continuous heparin drip. Sims cath inplace. Contact isolation observed.
--- NOTE | 2018-07-21 19:20 | NUR ---
NURSE NOTES: Received report from Deisy TAMAYO. Received patient From ICU 246-C, pt in bed restless with episode, pt teaching provided. Encouraged patient to verbalize needs, fears and feelings to staff. of trying to pull out BIPAP. placed BIPAP 25/5 Fi02 35 satting 95%. Suctioned by RT. Patient awake,alert able to make needs known to staff. Denies any pain or discomfort. HOB elevated. Sims draining. Bilateral soft wrist restraint checked. Will continue to monitor patient. On Seizure precaution. Left upper arm PICC running Heparin drip @ 23units/kg/hr, D5 1/2 NS at 50cc/hr. Will continue plan of care.
--- NOTE | 2018-07-21 19:25 | Internal Med Progress Note ---
Subjective Date of Service: Jul 21, 2018 Physician Name RojoMichael angulo Attending Physician Will Mejía MD Current Medications Medications (Trade) Dose Ordered Sig/Jesi Route PRN Reason Start Time Stop Time Status Last Admin Dose Admin Acetaminophen (Tylenol) 650 mg Q6H PRN NG FOR TEMP > 100 OR PAIN 1-07/21/18 23:30 08/19/18 11:29 UNV Cefazolin Sodium 1 gm/Dextrose 55 ml @ 110 mls/hr Q8H IVPB 07/22/18 02:00 07/28/18 17:59 UNV Chlorhexidine Gluconate (Candie-Hex 2%) 1 applic DAILY@2000 TOPIC 07/21/18 20:00 08/15/18 19:59 UNV Dextrose (Dextrose 50%) 25 ml Q30M PRN IV Hypoglycemia 07/21/18 19:45 08/12/18 01:14 UNV Dextrose (Dextrose 50%) 50 ml Q30M PRN IV Hypoglycemia 07/21/18 19:45 08/12/18 01:14 UNV Dextrose/Sodium Chloride 1,000 ml @ 50 mls/hr Q20H IV 07/21/18 19:30 08/20/18 06:14 UNV Famotidine (Pepcid I.v.) 20 mg Q12HR IVP 07/21/18 21:00 08/12/18 08:59 UNV Heparin Sodium/ Dextrose 500 ml @ 35.471 mls/ hr ADJUST PER PROTOCOL IV 07/22/18 10:45 08/20/18 10:44 UNV Insulin Aspart (NovoLOG) EVERY 6 HOURS SUBQ 07/22/18 00:00 08/12/18 12:29 UNV Levetiracetam 100 ml @ 400 mls/hr Q12H IVPB 07/21/18 21:15 08/13/18 21:14 UNV Levetiracetam 100 ml @ 400 mls/hr Q12HR IVPB 07/21/18 21:00 08/13/18 20:59 UNV Morphine Sulfate (Morphine Sulfate) 4 mg Q4H PRN IVP For Pain 07/21/18 19:45 07/27/18 23:44 UNV Potassium Chloride 100 ml @ 50 mls/hr Q2H IV 07/21/18 19:30 07/21/18 23:29 UNV Valproate Sodium 1000 mg/Dextrose 65 ml @ 32.5 mls/hr Q12HR@0100,1300 IV 07/22/18 01:00 08/13/18 12:59 UNV Allergies: Coded Allergies: HALOPERIDOL (Verified Allergy, Mild, [place] really bad, 07/05/16) Makes him irritable. THIORIDAZINE (Verified Allergy, Mild, [place] really bad, 07/05/16) Makes him violent TRAZODONE (Verified Allergy, Mild, [place] really bad, 07/05/16) Too strong; inability to move. Uncoded Allergies: PSYCHOTROPIC MEDICATION (Allergy, Mild, 08/13/14) ROS Limited/Unobtainable: Yes Subjective 72 YO M admitted with breakthrough seizure. Now respiratory failure. Extubated 07/19/18; now on BIPAP. Cover for Int Med-Dr Mejía. ICU Objective Last Vital Signs Date Time Temp Pulse Resp B/P (MAP) Pulse Ox O2 Delivery O2 Flow Rate FiO2 07/21/18 17:04 88 17 100 Facial 40 07/21/18 16:00 99.1 118/75 07/20/18 19:13 10.0 Laboratory Tests Test 07/21/18 05:20 07/21/18 07:40 White Blood Count 7.0 K/UL (4.8-10.8) Red Blood Count 3.76 M/UL (4.70-6.10) L Hemoglobin 11.2 G/DL (14.2-18.0) L Hematocrit 33.8 % (42.0-52.0) L Mean Corpuscular Volume 90 FL (80-99) Mean Corpuscular Hemoglobin 29.8 PG (27.0-31.0) Mean Corpuscular Hemoglobin Concent 33.2 G/DL (32.0-36.0) Red Cell Distribution Width 13.3 % (11.6-14.8) Platelet Count 209 K/UL (150-450) Mean Platelet Volume 5.5 FL (6.5-10.1) L Neutrophils (%) (Auto) 68.8 % (45.0-75.0) Lymphocytes (%) (Auto) 10.6 % (20.0-45.0) L Monocytes (%) (Auto) 18.5 % (1.0-10.0) H Eosinophils (%) (Auto) 1.3 % (0.0-3.0) Basophils (%) (Auto) 0.8 % (0.0-2.0) Activated Partial Thromboplast Time 72 SEC (23-33) H Sodium Level 141 MMOL/L (136-145) Potassium Level 3.2 MMOL/L (3.5-5.1) L Chloride Level 107 MMOL/L (98-107) Carbon Dioxide Level 31 MMOL/L (21-32) Anion Gap 4 mmol/L (5-15) L Blood Urea Nitrogen 13 mg/dL (7-18) Creatinine 0.8 MG/DL (0.55-1.30) Estimat Glomerular Filtration Rate mL/min (>60) Glucose Level 96 MG/DL (74-106) Calcium Level 9.4 MG/DL (8.5-10.1) Total Bilirubin 0.5 MG/DL (0.2-1.0) Aspartate Amino Transf (AST/SGOT) 16 U/L (15-37) Alanine Aminotransferase (ALT/SGPT) 47 U/L (12-78) Alkaline Phosphatase 189 U/L (46-116) H Pro-B-Type Natriuretic Peptide 1130 pg/mL (0-125) H Total Protein 7.2 G/DL (6.4-8.2) Albumin 2.3 G/DL (3.4-5.0) L Globulin 4.9 g/dL Albumin/Globulin Ratio 0.5 (1.0-2.7) L Arterial Blood pH 7.477 (7.350-7.450) Arterial Blood Partial Pressure CO2 38.1 mmHg (35.0-45.0) Arterial Blood Partial Pressure O2 57.6 mmHg (75.0-100.0) L Arterial Blood HCO3 27.5 mmol/L (22.0-26.0) H Arterial Blood Oxygen Saturation 89.0 % (95-100) *L Arterial Blood Base Excess 3.9 (-2-2) H Sudhakar Test Positive Intake and Output 07/20/18 07/21/18 19:00 07:00 Intake Total 1892.68 ml 592.68 ml Output Total 775 ml 980 ml Balance 1117.68 ml -387.32 ml IV Total 1692.68 ml 592.68 ml Tube Feeding 200 ml Output Urine Total 775 ml 980 ml # Bowel Movements 5 Objective PHYSICAL EXAMINATION: GENERAL: The patient is a thin-appearing male, in no apparent distress. The patient is intubated and sedated. HEENT: Eyes, pupils are equal and responsive to light and accommodation. Extraocular movements are intact. NECK: Supple. No lymphadenopathy. CHEST: BIPAP; Few expiratory wheezes bilaterally. Otherwise, without crackles or rales. CARDIOVASCULAR: Tachycardic, regular rate. S1 and S2 are normal without murmurs, rubs, or gallops. ABDOMEN: Soft, nontender, and nondistended. Positive bowel sounds. No evidence of hepatosplenomegaly. Currently, no rebound or guarding noted. EXTREMITIES: Negative for clubbing, cyanosis, or edema. RECTAL/GENITAL: Not performed. NEUROLOGICALLY: Unable to assess secondary to the patient's mental status. Assessment/Plan Assessment/Plan ASSESSMENT: This is a 72-year-old male. 1. Intractable seizures. 2. Respiratory failure. 3. Probable pneumonia of the right upper lobe. 4. History of seizure disorder. 5. Chronic obstructive pulmonary disease. 6. Diabetes type 2. 7. Hypertension. 8. Metabolic encephalopathy. 9. Chronic obstructive pulmonary disease. 10. Chronic renal failure. 11. Traumatic brain injury. 12. Gastroesophageal reflux disease. 13. Coronary artery disease. 14. Anemia. 15. History of gastrointestinal hemorrhage. 16. Hypercholesteremia. 17. Cerebrovascular disease, status post cerebrovascular accident. 18. Dysphagia. 19. Prostate cancer with mets 20. UTI=staph haemolyticus TREATMENT: 1. Intractable seizure. A Neurology consultation has been obtained. The patient has been started on Ativan intravenously. We will follow recommendations of Neurology. Continue Keppra, Dilantin, and Depakote as above. 2. Respiratory failure. Pulmonary consultation has been obtained with Dr. Maria E Shine. The patient is S/P extubation 07/19/18 now on BIPAP We will follow recommendations of Pulmonary. 3. Chronic obstructive pulmonary disease. As above, a Pulmonary consultation has been obtained with Dr. Maria E Shine. 4. Diabetes type 2. The patient has been placed on a NovoLog sliding scale. 5. Hypertension. The patient is currently hypotensive. 6. Metabolic encephalopathy. 7. Renal failure. 8. Traumatic brain injury. 9. Gastroesophageal reflux disease. 10. Coronary artery disease. 11. Anemia. 12. Gastrointestinal hemorrhage. 13. Hypercholesterolemia. 14. Cerebrovascular disease. 15. Dysphagia, status post PEG placement. 16. D/C vanco for staph UTI; D/C zosyn for peumonia-await urine and sputum cultures per ID 17. ID consult=Michael Land MD Jul 21, 2018 19:25
[2018-07-21] MEDS ORDERED: Morphine Sulfate 4mg/ml Inj (IV USE ONLY) IVP PRN (19:45)
[2018-07-21] MEDS ORDERED: Acetaminophen 650mg/20.3ml NG PRN (19:45)
[2018-07-21] MEDS: Dyna-Hex 2% Top Sol 2oz TOPIC SCH (20:04)
[2018-07-21] MEDS: D5 1/2NS 1,000 ML IV SCH (20:05)
[2018-07-21] MEDS: levETIRAcetam 1,000mg/NS100ml 100 ML IVPB SCH (20:27)
[2018-07-21] MEDS: levETIRAcetam 500mg/NS100ml 100 ML IVPB SCH (20:49)
[2018-07-22] VITALS: BP 136/70
[2018-07-22] MEDS: Valproate Sodium INJ 1,000 MG in D5W 55 ML IV SCH ×2 (01:05→13:47)
[2018-07-22] MEDS: ceFAZolin sod 1 GM in D5W 55 ML IVPB SCH ×3 (01:07→18:21)
[2018-07-22 04:00] VITALS: BP 116/83
[2018-07-22 04:35] LABS: BASOPHILS % (AUTO) 0.7 % (0.0-2.0); EOSINOPHILS % (AUTO) 2.9 % (0.0-3.0); HEMATOCRIT 38.9 % (42.0-52.0); HEMOGLOBIN 12.6 G/DL (14.2-18.0); LYMPHOCYTES % (AUTO) 16.4 % (20.0-45.0); MEAN CORPUSCULAR VOLUME 91 FL (80-99); MONOCYTES % (AUTO) 15.5 % (1.0-10.0); NEUTROPHILS % (AUTO) 64.5 % (45.0-75.0); PLATELET COUNT 220 K/UL (150-450); RED BLOOD COUNT 4.28 M/UL (4.70-6.10); RED CELL DISTRIBUTION WIDTH 13.3 % (11.6-14.8); WHITE BLOOD COUNT 4.6 K/UL (4.8-10.8)
--- NOTE | 2018-07-22 04:47 | NUR ---
Patient PTT result 40, left message to pipeline. will follow up
[2018-07-22 05:01] LABS: ALANINE AMINOTRANSFERASE 32 U/L (12-78); ALBUMIN 2.3 G/DL (3.4-5.0); ALBUMIN/GLOBULIN RATIO 0.4 (1.0-2.7); ALKALINE PHOSPHATASE 174 U/L (46-116); ANION GAP 17 mmol/L (5-15); ASPARTATE AMINO TRANSFERASE 12 U/L (15-37); BILIRUBIN,TOTAL 0.5 MG/DL (0.2-1.0); BLOOD UREA NITROGEN 9 mg/dL (7-18); CALCIUM 9.2 MG/DL (8.5-10.1); CARBON DIOXIDE 26 MMOL/L (21-32); CHLORIDE 104 MMOL/L (98-107); CREATININE 0.8 MG/DL (0.55-1.30); PHOSPHORUS 3.3 MG/DL (2.5-4.9); POTASSIUM 3.4 MMOL/L (3.5-5.1); SODIUM 147 MMOL/L (136-145)
[2018-07-22] MEDS ORDERED: Heparin 25,000u/D5W 500ml 500 ML IV SCH ×4 (05:15→12:30)
[2018-07-22] MEDS ORDERED: Heparin 5000 units/ml inj IV ONE ×2 (05:15)
[2018-07-22] MEDS: NovoLOG Insulin Flexpen SUBQ SCH ×4 (06:00→18:00)
--- NOTE | 2018-07-22 07:45 | NUR ---
HAND-OFF: Report given to Urvashi TAMAYO.
--- NOTE | 2018-07-22 07:45 | NUR ---
NURSE NOTES: Received pt from RONI Villatoro in stable condition with no cardiopulmonary distress noted. Pt is AAOx2 on Venturi mask at 40% FiO2. F/C noted draining yellow urine. Pt has a KAMILLA PICC running heparin at 41.63cc/hr (27u/kg/hr). No visible bleeding noted. Pt has bilat soft wrist restraints, radial pulses present bilaterally, 1/2" circular skin tear noted beneath right wrist and covered with optifoam. No other skin alterations noted. Bed is in lowest position with alarm on, side rails up x3 and padded per seizure precaution. Call light within reach. Will continue to monitor pt.
[2018-07-22 08:00] VITALS: BP 112/67
[2018-07-22] MEDS: levETIRAcetam 1,000mg/NS100ml 100 ML IVPB SCH ×2 (08:54→20:48)
[2018-07-22] MEDS: levETIRAcetam 500mg/NS100ml 100 ML IVPB SCH ×2 (09:42→21:18)
--- NOTE | 2018-07-22 10:11 | Diagnostic Imaging Report ---
EXAM: XR Chest, 1 View CLINICAL HISTORY: DYSPNEA TECHNIQUE: Frontal view of the chest. COMPARISON: Chest x-ray dated 07/21/18 FINDINGS: Lungs: No significant change in the patchy opacities in the right mid and lower lung. Mildly prominent interstitial markings, unchanged. Pleural space: Unremarkable. The costophrenic angles are sharp. No visible pneumothorax. Heart: Unremarkable. No cardiomegaly. Mediastinum: Unremarkable. Bones/joints: Unremarkable. Tubes, lines and devices: Telemetry leads overlie the thorax. IMPRESSION: No significant interval change. Patchy opacities in the right mid and lower lung.
--- NOTE | 2018-07-22 10:24 | NUR ---
Left a message for Dr. Mejía regarding pt's potassium level awaiting call back.
[2018-07-22 12:00] VITALS: BP 138/67
[2018-07-22] MEDS ORDERED: Heparin 5000 units/ml inj IV SCH (12:30)
--- NOTE | 2018-07-22 14:37 | Pulmonology Progress Note ---
Assessment/Plan Problems: (1) Acute respiratory failure (2) Acute metabolic encephalopathy (3) COPD (chronic obstructive pulmonary disease) (4) Acute renal failure (ARF) (5) Lumbar spondylosis (6) posttraumatic seizure disorder (7) Diabetes mellitus (8) Anemia (9) Chronic low back pain (10) Seizure disorder Respiratory: monitor respiratory rate, adjust FIO2, CXR Cardiac: continue to monitor HR/BP Renal: F/U I&O, keep IV fluid, check electrolytes Infectious Disease: check cultures, continue antibiotics Gastrointestinal: continue feedings/current rate Endocrine: check TSH, check HgA1C Hematologic: transfuse if hgb<8.5 Neurologic: PRN Ativan, keep patient comfortable Prophylaxis: Protonix Subjective ROS Limited/Unobtainable: No Constitutional: Reports: no symptoms HEENT: Repors: no symptoms Respiratory: Reports: no symptoms Allergies: Coded Allergies: HALOPERIDOL (Verified Allergy, Mild, [place] really bad, 07/05/16) Makes him irritable. THIORIDAZINE (Verified Allergy, Mild, [place] really bad, 07/05/16) Makes him violent TRAZODONE (Verified Allergy, Mild, [place] really bad, 07/05/16) Too strong; inability to move. Uncoded Allergies: PSYCHOTROPIC MEDICATION (Allergy, Mild, 08/13/14) Objective Last 24 Hour Vital Signs Date Time Temp Pulse Resp B/P (MAP) Pulse Ox O2 Delivery O2 Flow Rate FiO2 07/22/18 13:42 Nasal Cannula 2.0 07/22/18 12:00 Venturi Mask 07/22/18 12:00 98.7 76 19 138/67 100 Nasal Cannula 30 07/22/18 12:00 77 07/22/18 09:30 30 07/22/18 08:00 85 07/22/18 08:00 40 07/22/18 08:00 99.0 84 22 112/67 100 Bi-pap 40 07/22/18 08:00 Venturi Mask 07/22/18 07:06 100 Venturi Mask 8.0 40 07/22/18 07:02 91 18 97 Facial 40 07/22/18 04:55 88 14 99 Facial 40 07/22/18 04:00 Bi-pap 07/22/18 04:00 35 07/22/18 04:00 92 07/22/18 04:00 98.5 86 20 116/83 98 Bi-pap 35 07/22/18 03:15 87 18 98 Facial 40 07/22/18 01:25 86 17 99 Facial 40 07/22/18 00:00 98.7 87 20 136/70 98 Bi-pap 35 07/22/18 00:00 35 07/22/18 00:00 91 07/22/18 00:00 Bi-pap 07/21/18 23:17 87 15 100 Facial 40 07/21/18 21:29 82 18 99 Facial 40 07/21/18 20:44 99.1 07/21/18 20:43 88 18 99 Facial 40 07/21/18 20:42 96 Venturi Mask 10.0 35 07/21/18 20:00 98.8 87 23 129/86 98 Bi-pap 35 07/21/18 20:00 92 07/21/18 20:00 Bi-pap 07/21/18 20:00 35 07/21/18 17:04 88 17 100 Facial 40 07/21/18 16:00 35 07/21/18 16:00 Bi-pap 07/21/18 16:00 99.1 96 16 118/75 100 Bi-pap 07/21/18 15:33 95 07/21/18 15:00 104 23 131/86 98 Bi-pap 35 Intake and Output 07/21/18 07/22/18 19:00 07:00 Intake Total 1060.536 ml 1363.529 ml Output Total 495 ml 1200 ml Balance 565.536 ml 163.529 ml IV Total 1060.536 ml 1363.529 ml Output Urine Total 495 ml 1200 ml General Appearance: WD/WN HEENT: normocephalic, atraumatic Respiratory/Chest: chest wall non-tender, lungs clear, chest wall tender Cardiovascular: normal peripheral pulses Abdomen: normal bowel sounds, soft, non tender 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 Laboratory Tests 07/22/18 04:00: White Blood Count 4.6L, Red Blood Count 4.28L, Hemoglobin 12.6L, Hematocrit 38.9L, Mean Corpuscular Volume 91, Mean Corpuscular Hemoglobin 29.3, Mean Corpuscular Hemoglobin Concent 32.3, Red Cell Distribution Width 13.3, Platelet Count 220, Mean Platelet Volume 5.2L, Neutrophils (%) (Auto) 64.5, Lymphocytes ( %) (Auto) 16.4L, Monocytes (%) (Auto) 15.5H, Eosinophils (%) (Auto) 2.9, Basophils (%) (Auto) 0.7, Activated Partial Thromboplast Time 40H, Sodium Level 147H, Potassium Level 3.4L, Chloride Level 104, Carbon Dioxide Level 26, Anion Gap 17H, Blood Urea Nitrogen 9, Creatinine 0.8, Estimat Glomerular Filtration Rate , Glucose Level 88, Calcium Level 9.2, Phosphorus Level 3.3, Magnesium Level 2.0, Total Bilirubin 0.5, Aspartate Amino Transf (AST/SGOT) 12L, Alanine Aminotransferase (ALT/SGPT) 32, Alkaline Phosphatase 174H, Total Protein 7.5, Albumin 2.3L, Globulin 5.2, Albumin/Globulin Ratio 0.4L 07/22/18 11:47: Activated Partial Thromboplast Time 49H Current Medications Medications (Trade) Dose Ordered Sig/Jesi Route PRN Reason Start Time Stop Time Status Last Admin Dose Admin Acetaminophen (Tylenol) 650 mg Q6H PRN NG FOR TEMP > 100 OR PAIN 1-07/21/18 19:45 08/19/18 19:44 Cefazolin Sodium 1 gm/Dextrose 55 ml @ 110 mls/hr Q8H IVPB 07/22/18 02:00 07/28/18 17:59 07/22/18 10:04 Chlorhexidine Gluconate (Candie-Hex 2%) 1 applic DAILY@2000 TOPIC 07/21/18 20:00 08/15/18 19:59 07/21/18 20:04 Dextrose (Dextrose 50%) 25 ml Q30M PRN IV Hypoglycemia 07/21/18 19:45 08/12/18 01:14 Dextrose (Dextrose 50%) 50 ml Q30M PRN IV Hypoglycemia 07/21/18 19:45 08/12/18 01:14 Dextrose/Sodium Chloride 1,000 ml @ 50 mls/hr Q20H IV 07/21/18 19:30 08/20/18 06:14 07/21/18 20:05 Famotidine (Pepcid I.v.) 20 mg Q12HR IVP 07/21/18 21:00 08/12/18 08:59 07/22/18 08:55 Heparin Sodium/ Dextrose 500 ml @ 47.809 mls/ hr ADJUST PER PROTOCOL IV 07/22/18 12:30 08/21/18 12:29 07/22/18 12:54 Insulin Aspart (NovoLOG) EVERY 6 HOURS SUBQ 07/22/18 00:00 08/12/18 12:29 Levetiracetam 100 ml @ 400 mls/hr Q12H IVPB 07/21/18 21:15 08/13/18 21:14 07/22/18 09:42 Levetiracetam 100 ml @ 400 mls/hr Q12HR IVPB 07/21/18 21:00 08/13/18 20:59 07/22/18 08:54 Morphine Sulfate (Morphine Sulfate) 4 mg Q4H PRN IVP For Pain 07/21/18 19:45 07/27/18 23:44 07/21/18 20:14 Potassium Chloride 100 ml @ 50 mls/hr Q2H IVPB 07/22/18 11:30 07/22/18 15:29 07/22/18 14:05 Valproate Sodium 1000 mg/Dextrose 65 ml @ 32.5 mls/hr Q12HR@0100,1300 IV 07/22/18 01:00 08/13/18 12:59 07/22/18 13:47 Maria E Shine MD Jul 22, 2018 14:37
[2018-07-22] MEDS: D5 1/2NS 1,000 ML IV SCH (15:13)
--- NOTE | 2018-07-22 15:53 | Internal Med Progress Note ---
Subjective Date of Service: Jul 22, 2018 Physician Name RojoMichael Attending Physician Will Mejía MD Current Medications Medications (Trade) Dose Ordered Sig/Jesi Route PRN Reason Start Time Stop Time Status Last Admin Dose Admin Acetaminophen (Tylenol) 650 mg Q6H PRN NG FOR TEMP > 100 OR PAIN 1-07/21/18 19:45 08/19/18 19:44 Cefazolin Sodium 1 gm/Dextrose 55 ml @ 110 mls/hr Q8H IVPB 07/22/18 02:00 07/28/18 17:59 07/22/18 10:04 Chlorhexidine Gluconate (Candie-Hex 2%) 1 applic DAILY@2000 TOPIC 07/21/18 20:00 08/15/18 19:59 07/21/18 20:04 Dextrose (Dextrose 50%) 25 ml Q30M PRN IV Hypoglycemia 07/21/18 19:45 08/12/18 01:14 Dextrose (Dextrose 50%) 50 ml Q30M PRN IV Hypoglycemia 07/21/18 19:45 08/12/18 01:14 Dextrose/Sodium Chloride 1,000 ml @ 50 mls/hr Q20H IV 07/21/18 19:30 08/20/18 06:14 07/22/18 15:13 Famotidine (Pepcid I.v.) 20 mg Q12HR IVP 07/21/18 21:00 08/12/18 08:59 07/22/18 08:55 Heparin Sodium/ Dextrose 500 ml @ 47.809 mls/ hr ADJUST PER PROTOCOL IV 07/22/18 12:30 08/21/18 12:29 07/22/18 12:54 Insulin Aspart (NovoLOG) EVERY 6 HOURS SUBQ 07/22/18 00:00 08/12/18 12:29 Levetiracetam 100 ml @ 400 mls/hr Q12H IVPB 07/21/18 21:15 08/13/18 21:14 07/22/18 09:42 Levetiracetam 100 ml @ 400 mls/hr Q12HR IVPB 07/21/18 21:00 08/13/18 20:59 07/22/18 08:54 Morphine Sulfate (Morphine Sulfate) 4 mg Q4H PRN IVP For Pain 07/21/18 19:45 07/27/18 23:44 07/21/18 20:14 Valproate Sodium 1000 mg/Dextrose 65 ml @ 32.5 mls/hr Q12HR@0100,1300 IV 07/22/18 01:00 08/13/18 12:59 07/22/18 13:47 Allergies: Coded Allergies: HALOPERIDOL (Verified Allergy, Mild, [place] really bad, 07/05/16) Makes him irritable. THIORIDAZINE (Verified Allergy, Mild, [place] really bad, 07/05/16) Makes him violent TRAZODONE (Verified Allergy, Mild, [place] really bad, 07/05/16) Too strong; inability to move. Uncoded Allergies: PSYCHOTROPIC MEDICATION (Allergy, Mild, 08/13/14) ROS Limited/Unobtainable: Yes Subjective 72 YO M admitted with breakthrough seizure. Now respiratory failure. Extubated 07/19/18. Cover for Int Med-Dr Mejía. LUIS Objective Last Vital Signs Date Time Temp Pulse Resp B/P (MAP) Pulse Ox O2 Delivery O2 Flow Rate FiO2 07/22/18 13:42 Nasal Cannula 2.0 07/22/18 12:00 98.7 76 19 138/67 100 30 Laboratory Tests Test 07/22/18 04:00 07/22/18 11:47 White Blood Count 4.6 K/UL (4.8-10.8) L Red Blood Count 4.28 M/UL (4.70-6.10) L Hemoglobin 12.6 G/DL (14.2-18.0) L Hematocrit 38.9 % (42.0-52.0) L Mean Corpuscular Volume 91 FL (80-99) Mean Corpuscular Hemoglobin 29.3 PG (27.0-31.0) Mean Corpuscular Hemoglobin Concent 32.3 G/DL (32.0-36.0) Red Cell Distribution Width 13.3 % (11.6-14.8) Platelet Count 220 K/UL (150-450) Mean Platelet Volume 5.2 FL (6.5-10.1) L Neutrophils (%) (Auto) 64.5 % (45.0-75.0) Lymphocytes (%) (Auto) 16.4 % (20.0-45.0) L Monocytes (%) (Auto) 15.5 % (1.0-10.0) H Eosinophils (%) (Auto) 2.9 % (0.0-3.0) Basophils (%) (Auto) 0.7 % (0.0-2.0) Activated Partial Thromboplast Time 40 SEC (23-33) H 49 SEC (23-33) H Sodium Level 147 MMOL/L (136-145) H Potassium Level 3.4 MMOL/L (3.5-5.1) L Chloride Level 104 MMOL/L (98-107) Carbon Dioxide Level 26 MMOL/L (21-32) Anion Gap 17 mmol/L (5-15) H Blood Urea Nitrogen 9 mg/dL (7-18) Creatinine 0.8 MG/DL (0.55-1.30) Estimat Glomerular Filtration Rate mL/min (>60) Glucose Level 88 MG/DL (74-106) Calcium Level 9.2 MG/DL (8.5-10.1) Phosphorus Level 3.3 MG/DL (2.5-4.9) Magnesium Level 2.0 MG/DL (1.8-2.4) Total Bilirubin 0.5 MG/DL (0.2-1.0) Aspartate Amino Transf (AST/SGOT) 12 U/L (15-37) L Alanine Aminotransferase (ALT/SGPT) 32 U/L (12-78) Alkaline Phosphatase 174 U/L (46-116) H Total Protein 7.5 G/DL (6.4-8.2) Albumin 2.3 G/DL (3.4-5.0) L Globulin 5.2 g/dL Albumin/Globulin Ratio 0.4 (1.0-2.7) L Intake and Output 07/21/18 07/22/18 19:00 07:00 Intake Total 1060.536 ml 1363.529 ml Output Total 495 ml 1200 ml Balance 565.536 ml 163.529 ml IV Total 1060.536 ml 1363.529 ml Output Urine Total 495 ml 1200 ml Objective PHYSICAL EXAMINATION: GENERAL: The patient is a thin-appearing male, in no apparent distress. The patient is intubated and sedated. HEENT: Eyes, pupils are equal and responsive to light and accommodation. Extraocular movements are intact. NECK: Supple. No lymphadenopathy. CHEST: Nasal canula; Few expiratory wheezes bilaterally. Otherwise, without crackles or rales. CARDIOVASCULAR: Tachycardic, regular rate. S1 and S2 are normal without murmurs, rubs, or gallops. ABDOMEN: Soft, nontender, and nondistended. Positive bowel sounds. No evidence of hepatosplenomegaly. Currently, no rebound or guarding noted. EXTREMITIES: Negative for clubbing, cyanosis, or edema. RECTAL/GENITAL: Not performed. NEUROLOGICALLY: Unable to assess secondary to the patient's mental status. Assessment/Plan Assessment/Plan ASSESSMENT: This is a 72-year-old male. 1. Intractable seizures. 2. Respiratory failure. 3. Probable pneumonia of the right upper lobe. 4. History of seizure disorder. 5. Chronic obstructive pulmonary disease. 6. Diabetes type 2. 7. Hypertension. 8. Metabolic encephalopathy. 9. Chronic obstructive pulmonary disease. 10. Chronic renal failure. 11. Traumatic brain injury. 12. Gastroesophageal reflux disease. 13. Coronary artery disease. 14. Anemia. 15. History of gastrointestinal hemorrhage. 16. Hypercholesteremia. 17. Cerebrovascular disease, status post cerebrovascular accident. 18. Dysphagia. 19. Prostate cancer with mets 20. UTI=staph haemolyticus TREATMENT: 1. Intractable seizure. A Neurology consultation has been obtained. The patient has been started on Ativan intravenously. We will follow recommendations of Neurology. Continue Keppra, Dilantin, and Depakote as above. 2. Respiratory failure. Pulmonary consultation has been obtained with Dr. Maria E Shine. The patient is S/P extubation 07/19/18 now on nasal canula We will follow recommendations of Pulmonary. 3. Chronic obstructive pulmonary disease. As above, a Pulmonary consultation has been obtained with Dr. Maria E Shine. 4. Diabetes type 2. The patient has been placed on a NovoLog sliding scale. 5. Hypertension. The patient is currently hypotensive. 6. Metabolic encephalopathy. 7. Renal failure. 8. Traumatic brain injury. 9. Gastroesophageal reflux disease. 10. Coronary artery disease. 11. Anemia. 12. Gastrointestinal hemorrhage. 13. Hypercholesterolemia. 14. Cerebrovascular disease. 15. Dysphagia, status post PEG placement. 16. D/C vanco for staph UTI; D/C zosyn for peumonia-await urine and sputum cultures per ID 17. ID consult=Michael Land MD Jul 22, 2018 15:53
[2018-07-22 16:00] VITALS: BP 129/86
--- NOTE | 2018-07-22 19:27 | NUR ---
HAND-OFF: Report given to RONI Aponte. Pt in stable condition.
--- NOTE | 2018-07-22 19:30 | NUR ---
NURSE NOTES: Pt is received Pt resting on the bed and awake and confused. Pt is agitated. On O2 2L via nasal cannula and no sign of acute distress noted. On Tele monitor with SR. Pt has PICC line on Lt. upper arm. Dressing is clean and dry and patent. On bilateral wrist soft restraint. Trying to release restraint when during care but pt still trying to touch PICC line, Sims and nasal cannula. Pt truing to get out of bed without assistance. Given Verbal cueing but he didn't understand. Checked circulation and comfort. Pt has dressing on Rt. wrist for skin tear. Changed position. On Sims cath and patent and drainage well. On heparin drip with 31U/kg/hr and no sign of acute bleeding. Placed fall and seizure precaution. Will continue to care plan.
[2018-07-22 20:00] VITALS: BP 140/70
[2018-07-22] MEDS: Dyna-Hex 2% Top Sol 2oz TOPIC SCH (20:06)
[2018-07-22] MEDS: Heparin 25,000u/D5W 500ml 500 ML IV SCH (21:48)
[2018-07-22] MEDS ORDERED: NS 275ml ONE (22:49)
[2018-07-22] MEDS ORDERED: D5 1/2NS 1000ml IV ONE (22:49)
--- NOTE | 2018-07-22 23:01 | NUR ---
RESPIRATORY NOTE: Pt placed on BiPAP for nightly use. Pt now on BiPAP 25/5, back up rate 16, 30%. Pt on a Facial Mask, skin intact, no redness/breakdowns noted. Foam tape applied on pt's cheeks/chin to prevent any irritations. Pt alert/awake, follows commands. B/S juan. rales, nonproductive cough. BiPAP plugged into red outlet, alarms on & audible. Pt in no apparent distress at this time. Will continue plan of care.
[2018-07-23] VITALS: BP 145/87
[2018-07-23] MEDS: Valproate Sodium INJ 1,000 MG in D5W 55 ML IV SCH ×2 (00:39→12:29)
[2018-07-23] MEDS: Heparin 25,000u/D5W 500ml 500 ML IV SCH (00:41)
[2018-07-23] MEDS: ceFAZolin sod 1 GM in D5W 55 ML IVPB SCH ×3 (02:41→17:47)
[2018-07-23 04:00] VITALS: BP 131/75
[2018-07-23 04:26] LABS: ALANINE AMINOTRANSFERASE 23 U/L (12-78); ALBUMIN 2.1 G/DL (3.4-5.0); ALBUMIN/GLOBULIN RATIO 0.5 (1.0-2.7); ALKALINE PHOSPHATASE 144 U/L (46-116); ANION GAP 9 mmol/L (5-15); ASPARTATE AMINO TRANSFERASE 11 U/L (15-37); BILIRUBIN,TOTAL 0.3 MG/DL (0.2-1.0); BLOOD UREA NITROGEN 7 mg/dL (7-18); CALCIUM 8.9 MG/DL (8.5-10.1); CARBON DIOXIDE 26 MMOL/L (21-32); CHLORIDE 108 MMOL/L (98-107); CREATININE 0.8 MG/DL (0.55-1.30); POTASSIUM 3.3 MMOL/L (3.5-5.1); SODIUM 143 MMOL/L (136-145)
[2018-07-23 04:35] LABS: BASOPHILS % (AUTO) 0.8 % (0.0-2.0); EOSINOPHILS % (AUTO) 4.5 % (0.0-3.0); HEMATOCRIT 30.3 % (42.0-52.0); HEMOGLOBIN 10.1 G/DL (14.2-18.0); LYMPHOCYTES % (AUTO) 18.1 % (20.0-45.0); MEAN CORPUSCULAR VOLUME 88 FL (80-99); MONOCYTES % (AUTO) 14.9 % (1.0-10.0); NEUTROPHILS % (AUTO) 61.7 % (45.0-75.0); PLATELET COUNT 197 K/UL (150-450); RED BLOOD COUNT 3.45 M/UL (4.70-6.10); WHITE BLOOD COUNT 3.9 K/UL (4.8-10.8)
--- NOTE | 2018-07-23 04:45 | NUR ---
NURSE NOTES: On heparin drip with 27U/kg/hr. Noted PTT: 138. Notified to pharmacist Kylee and hold 1hr than will decrease to 24U/kg/hr. Will continue to monitor any change of condition.
[2018-07-23] MEDS ORDERED: Heparin 25,000u/D5W 500ml 500 ML IV SCH ×3 (06:00→22:00)
[2018-07-23] MEDS: NovoLOG Insulin Flexpen SUBQ SCH ×4 (06:00→17:51)
--- NOTE | 2018-07-23 07:20 | NUR ---
HAND-OFF: Report given to RONI Waggoner. Pt is resting on the bed and no sign of acute distress noted. Noted potassium level is 3.3. Left message to Dr. Shine and awaiting call back.
--- NOTE | 2018-07-23 07:25 | NUR ---
RESPIRATORY NOTE:Received pt on current bipap settings. pt is on facial mask with foam tape to prevent skin breakdown. pt was taken off bipap and placed on 2l n/c. pt is showing no s/s of distress. will cont. to monitor pt.
[2018-07-23 08:00] VITALS: BP 116/73
--- NOTE | 2018-07-23 08:10 | NUR ---
NURSE NOTES: received pt in the bed, awake, confused, vital signs stable, no co pain, Bipap at night, now 2L via nasal canula, tolerate well, skin warm and dry to touch, NPO, for video swallow, soft wrist restrains for safety, bed in low position, call light within reach.
[2018-07-23] MEDS: levETIRAcetam 1,000mg/NS100ml 100 ML IVPB SCH ×2 (08:33→20:35)
--- NOTE | 2018-07-23 08:42 | NUR ---
RADIOLOGY DEPT., CHEST X-RAY DONE.-P.DYE
[2018-07-23] MEDS: levETIRAcetam 500mg/NS100ml 100 ML IVPB SCH ×2 (09:09→21:36)
--- NOTE | 2018-07-23 10:23 | Pulmonology Progress Note ---
Assessment/Plan Problems: (1) Acute respiratory failure (2) Acute metabolic encephalopathy (3) COPD (chronic obstructive pulmonary disease) (4) Acute renal failure (ARF) (5) Lumbar spondylosis (6) posttraumatic seizure disorder (7) Diabetes mellitus (8) Anemia (9) Chronic low back pain (10) Seizure disorder Assessment/Plan cxr reviewed, RML infiltrate on Nasal Canula now respiratory treatment check electrolytes swallow study sliding scale diabetic diet symptomatic treatment dvt prophylaxis. Subjective ROS Limited/Unobtainable: Yes Constitutional: Reports: no symptoms HEENT: Repors: no symptoms Allergies: Coded Allergies: HALOPERIDOL (Verified Allergy, Mild, [place] really bad, 07/05/16) Makes him irritable. THIORIDAZINE (Verified Allergy, Mild, [place] really bad, 07/05/16) Makes him violent TRAZODONE (Verified Allergy, Mild, [place] really bad, 07/05/16) Too strong; inability to move. Uncoded Allergies: PSYCHOTROPIC MEDICATION (Allergy, Mild, 08/13/14) Objective Last 24 Hour Vital Signs Date Time Temp Pulse Resp B/P (MAP) Pulse Ox O2 Delivery O2 Flow Rate FiO2 07/23/18 08:00 2.0 07/23/18 08:00 Nasal Cannula 2.0 07/23/18 08:00 97.5 69 20 116/73 98 Nasal Cannula 2.0 07/23/18 08:00 69 07/23/18 07:18 98 Nasal Cannula 2.0 28 07/23/18 05:35 69 18 100 Facial 30 07/23/18 04:00 68 07/23/18 04:00 30 07/23/18 04:00 97.5 69 22 131/75 100 Bi-pap 30 07/23/18 04:00 Bi-pap 07/23/18 03:10 89 25 100 Facial 30 07/23/18 00:58 77 17 100 Facial 30 07/23/18 00:00 97.9 77 18 145/87 99 Bi-pap 30 07/23/18 00:00 30 07/23/18 00:00 Bi-pap 07/23/18 00:00 79 07/22/18 22:59 76 16 100 Facial 30 07/22/18 20:00 97.8 76 18 140/70 98 Nasal Cannula 2.0 07/22/18 20:00 72 07/22/18 20:00 Nasal Cannula 2.0 07/22/18 20:00 2.0 07/22/18 18:57 97 Nasal Cannula 2.0 28 07/22/18 18:27 Nasal Cannula 2.0 07/22/18 16:00 98.1 80 18 129/86 99 Nasal Cannula 30 07/22/18 16:00 2.0 07/22/18 16:00 72 07/22/18 16:00 Nasal Cannula 2.0 07/22/18 13:42 Nasal Cannula 2.0 07/22/18 12:00 Venturi Mask 07/22/18 12:00 98.7 76 19 138/67 100 Nasal Cannula 30 07/22/18 12:00 77 Intake and Output 07/22/18 07/23/18 18:59 06:59 Intake Total 1648.334 ml 1386.899 ml Output Total 1475 ml 1000 ml Balance 173.334 ml 386.899 ml IV Total 1648.334 ml 1386.899 ml Output Urine Total 1475 ml 1000 ml # Bowel Movements 2 2 General Appearance: WD/WN HEENT: normocephalic, atraumatic Respiratory/Chest: chest wall non-tender, lungs clear, normal breath sounds Cardiovascular: normal peripheral pulses, normal rate, no JVD Abdomen: soft, non tender Genitourinary: normal external genitalia Extremities: no cyanosis Skin: no lesions 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 Laboratory Tests 07/22/18 11:47: Activated Partial Thromboplast Time 49H 07/22/18 18:58: Activated Partial Thromboplast Time > 150*H 07/23/18 03:49: Activated Partial Thromboplast Time 138H, White Blood Count 3.9L, Red Blood Count 3.45L, Hemoglobin 10.1L, Hematocrit 30.3L, Mean Corpuscular Volume 88, Mean Corpuscular Hemoglobin 29.3, Mean Corpuscular Hemoglobin Concent 33.3, Red Cell Distribution Width 13.0, Platelet Count 197, Mean Platelet Volume 4.8L, Neutrophils (%) (Auto) 61.7, Lymphocytes (%) (Auto) 18.1L, Monocytes (%) (Auto) 14.9H, Eosinophils (%) (Auto) 4.5H, Basophils (%) (Auto) 0.8, Sodium Level 143, Potassium Level 3.3L, Chloride Level 108H, Carbon Dioxide Level 26, Anion Gap 9 , Blood Urea Nitrogen 7, Creatinine 0.8, Estimat Glomerular Filtration Rate , Glucose Level 106, Calcium Level 8.9, Total Bilirubin 0.3, Aspartate Amino Transf (AST/SGOT) 11L, Alanine Aminotransferase (ALT/SGPT) 23, Alkaline Phosphatase 144H, Pro-B-Type Natriuretic Peptide 425H, Total Protein 6.6, Albumin 2.1L, Globulin 4.5, Albumin/Globulin Ratio 0.5L Current Medications Medications (Trade) Dose Ordered Sig/Jesi Route PRN Reason Start Time Stop Time Status Last Admin Dose Admin Acetaminophen (Tylenol) 650 mg Q6H PRN NG FOR TEMP > 100 OR PAIN 107/21/18 19:45 08/19/18 19:44 Cefazolin Sodium 1 gm/Dextrose 55 ml @ 110 mls/hr Q8H IVPB 07/22/18 02:00 07/28/18 17:59 07/23/18 09:47 Chlorhexidine Gluconate (Candie-Hex 2%) 1 applic DAILY@2000 TOPIC 07/21/18 20:00 08/15/18 19:59 07/22/18 20:06 Dextrose (Dextrose 50%) 25 ml Q30M PRN IV Hypoglycemia 07/21/18 19:45 08/12/18 01:14 Dextrose (Dextrose 50%) 50 ml Q30M PRN IV Hypoglycemia 07/21/18 19:45 08/12/18 01:14 Dextrose/Sodium Chloride 1,000 ml @ 50 mls/hr Q20H IV 07/21/18 19:30 08/20/18 06:14 07/22/18 15:13 Famotidine (Pepcid I.v.) 20 mg Q12HR IVP 07/21/18 21:00 08/12/18 08:59 07/23/18 08:33 Heparin Sodium/ Dextrose 500 ml @ 37.013 mls/ hr ADJUST PER PROTOCOL IV 07/23/18 06:00 08/21/18 21:29 07/23/18 06:06 Insulin Aspart (NovoLOG) EVERY 6 HOURS SUBQ 07/22/18 00:00 08/12/18 12:29 Levetiracetam 100 ml @ 400 mls/hr Q12H IVPB 07/21/18 21:15 08/13/18 21:14 07/23/18 09:09 Levetiracetam 100 ml @ 400 mls/hr Q12HR IVPB 07/21/18 21:00 08/13/18 20:59 07/23/18 08:33 Morphine Sulfate (Morphine Sulfate) 4 mg Q4H PRN IVP For Pain 07/21/18 19:45 07/27/18 23:44 07/21/18 20:14 Potassium Chloride 100 ml @ 50 mls/hr Q2H IVPB 07/23/18 12:00 07/23/18 15:59 Valproate Sodium 1000 mg/Dextrose 65 ml @ 32.5 mls/hr Q12HR@0100,1300 IV 07/22/18 01:00 08/13/18 12:59 07/23/18 00:39 Maria E Shine MD Jul 23, 2018 10:23
[2018-07-23] MEDS: D5 1/2NS 1,000 ML IV SCH (11:15)
--- NOTE | 2018-07-23 11:16 | NUR ---
RD ASSESSMENT & RECOMMENDATIONS SEE CARE ACTIVITY FOR COMPLETE ASSESSMENT DAILY ESTIMATED NEEDS: Needs based on Pulmonary 78kg 25-30 kcals/kg 4000-4350 total kcals 1-1.5 g protein/kg 78-117 g total protein 25-30 mL/kg 0227-5628 total fluid mLs NUTRITION DIAGNOSIS: Swallowing difficulty R/T respiratory status, h/o CVA/TIA as evidenced by pt is now s/p extubation, s/p pulling out NGT, NPO, pending VSS. CURRENT DIET: NPO PO DIET RECOMMENDATIONS: LOW NA/ texture per BILINGUAL LOAN PROCESSOR + Glucerna TID w/ meals ENTERAL NUTRITION RECOMMENDATIONS: IF TF INDICATED -> GLUCERNA 1.5 @55ml/hr x 24 hrs to provide 1320ml, 1980kcal, 109g prot, 1002ml free water * IF PT FAILS VSS AND TF IS INDICATED, OBTAIN GI ACCESS FOR TF * Initiate Glucerna 1.5 @ 25ml/hr x 6hrs, advance 10ml q 4-6 hrs as tolerated to goal rate. * HOB over 30 degrees/ water flush per MD ADDITIONAL RECOMMENDATIONS: * Obtain calibrated bedscale wt for accurate CBW * Monitor NPO status, f/up with VSS result -> TF REC ABOVE IF PT FAILS VSS * Lytes daily, replete as needed .
[2018-07-23 12:00] VITALS: BP 117/57
--- NOTE | 2018-07-23 12:19 | Diagnostic Imaging Report ---
Indication: Dyspnea Comparison: 07/22/2018 A single view chest radiograph was obtained. Findings: Pulmonary vascular congestion demonstrated. Cardiomegaly is present. The bones are slightly osteopenic. There is a left PICC line present with the tip projected over the SVC. IMPRESSION: Suspicion of pulmonary vascular congestion. Correlate clinically
--- NOTE | 2018-07-23 12:46 | NUR ---
NURSE NOTES: pt resting, vital signs stable, video swallow done, failed, no co pain, continue monitoring.
[2018-07-23] MEDS ORDERED: Heparin 5000 units/ml inj IV SCH (13:45)
--- NOTE | 2018-07-23 13:51 | NUR ---
ST NOTE: MODIFIED BARIUM SWALLOW STUDY COMPLETED MODIFIED BARIUM SWALLOW STUDY (MBSS) PT ALERT, COOPERATIVE, SEEMS CONFUSED, ABLE TO FOLLOW SOME SIMPLE COMMANDS WITH MAX CUES GIVEN PO TRIALS: THIN(TSP X 2), NECTAR THICK(TSP/MED CUP/[id number]-RPU), HONEY THICK(TSP) AND PUDDING(TSP). IMPRESSION: PT PRESENTS WITH SEVERE OROPHARYNGEAL DYSPHAGIA, WORSE OROPHARYNGEAL DYSPHAGIA COMPARED LAST MBSS IN 01/2016, CHARACTERIZED BY INCREASED ORAL TRANSIT TIME SECONDARY TO REDUCED LINGUAL MOTION AND STRENGTH. PHARYNGEAL PHASE: TRACE SILENT AND AUDIBLE(DELAYED COUGH) PENETRATION AND ASPIRATION WITH THIN; DEEP TRACE LARYNGEAL PENETRATION AND AUDIBLE(DELAYED COUGH) ASPIRATION WITH NECTAR THICK AND HONEY THICK LIQUIDS DUE TO DELAYED SWALLOW, REDUCED/WEAK HYO-LARYNGEAL ELEVATION/EXCURSION, MINIMAL TO NO INVERSION OF EPIGLOTTIC MOVEMENT AND REDUCED LARYNGEAL VESTIBULE CLOSURE. SIGNIFICANT(MODERATELY SEVERE) PHARYNGEAL RESIDUE(NOTED IN TONGUE BASE. VALLECULAE AND PYRIFORM SINUSES DUE TO OVERALL PHARYNGEAL WEAKNESS(REDUCED TONGUE BASE RETRACTION, REDUCED HYO-LARYNGEAL ELEVATION, REDUCED TO NO EPIGLOTTIC MOVEMENT). PT WAS ABLE TO USE SOME SWALLOW TECHNIQUES(CHIN TUCK, EFFORTFUL SWALLOW, SWALLOW X 3 TO 4 TIMES), NO SIGNIFICANT DIFFERENCE WITH CHIN TUCK, HEAD TURN TO LEFT OR RIGHT TO CLEAR PHARYNGEAL RESIDUE. PT IS AT HIGH RISK FOR CHRONIC SILENT AND AUDIBLE ASPIRATION RISK. RECOMMENDATIONS: 1. CONSERVATIVELY, LONG-TERM NONORAL FEEDING IS RECOMMENDED TO MEET NUTRITION AND HYDRATION NEEDS IF PT'S FAMILY AGREES. 2. KEEP PT NPO FOR NOW. 3. SWALLOW TX. REFER PT TO MAIL DELIVERY SUPERVISOR AT DISCHARGE FACILITY RE: SWALLOW TX. D/W RN, DOLORES, AND INFORMED MD, DR. VAZQUEZ AND CLEMENTE.
--- NOTE | 2018-07-23 14:14 | Infectious Diseases Prog Note ---
Assessment/Plan Assessment/Plan 72 yo male with PMHx of TBI, Seizure disorder, COPD, Encephalopathy, DM, HTN, CVA, Renal failure, CAD and Dysphagia s/p Peg who was brought to the ED on with intractable seizures. Respiratory failure Most probably due to seizures Active PNA unlikely Sputum Cx 07/12/18 - NF Bacteriuria UTI unlikely UCx - Staph h. S/P 2 days Vancomycin DVT right leg On Heparin TBI Seizure disorder COPD Encephalopathy DM HTN CVA Renal failure CAD Dysphagia s/p Peg Extubated 07/19/18 PLAN - Continue Cefazolin #2 / 7 On D/C could switch to Augmentin 875 BID to finish the course 07/15/18 S/P Vancomycin and Zosyn #2 - Supportive care - Monitor CBC and Temps Subjective Allergies: Coded Allergies: HALOPERIDOL (Verified Allergy, Mild, [place] really bad, 07/05/16) Makes him irritable. THIORIDAZINE (Verified Allergy, Mild, [place] really bad, 07/05/16) Makes him violent TRAZODONE (Verified Allergy, Mild, [place] really bad, 07/05/16) Too strong; inability to move. Uncoded Allergies: PSYCHOTROPIC MEDICATION (Allergy, Mild, 08/13/14) Subjective Doing well on 2L NC Afebrile No Leukocytosis Objective Vital Signs Last 24 Hour Vital Signs Date Time Temp Pulse Resp B/P (MAP) Pulse Ox O2 Delivery O2 Flow Rate FiO2 07/23/18 12:00 2.0 07/23/18 12:00 Nasal Cannula 2.0 07/23/18 08:00 2.0 07/23/18 08:00 Nasal Cannula 2.0 07/23/18 08:00 97.5 69 20 116/73 98 Nasal Cannula 2.0 07/23/18 08:00 69 07/23/18 07:18 98 Nasal Cannula 2.0 28 07/23/18 05:35 69 18 100 Facial 30 07/23/18 04:00 68 07/23/18 04:00 30 07/23/18 04:00 97.5 69 22 131/75 100 Bi-pap 30 07/23/18 04:00 Bi-pap 07/23/18 03:10 89 25 100 Facial 30 07/23/18 00:58 77 17 100 Facial 30 07/23/18 00:00 97.9 77 18 145/87 99 Bi-pap 30 07/23/18 00:00 30 07/23/18 00:00 Bi-pap 07/23/18 00:00 79 07/22/18 22:59 76 16 100 Facial 30 07/22/18 20:00 97.8 76 18 140/70 98 Nasal Cannula 2.0 07/22/18 20:00 72 07/22/18 20:00 Nasal Cannula 2.0 07/22/18 20:00 2.0 07/22/18 18:57 97 Nasal Cannula 2.0 28 07/22/18 18:27 Nasal Cannula 2.0 07/22/18 16:00 98.1 80 18 129/86 99 Nasal Cannula 30 07/22/18 16:00 2.0 07/22/18 16:00 72 07/22/18 16:00 Nasal Cannula 2.0 Height (Feet): 6 Weight (Pounds): 171 Objective Gen: NAD, Sat well on 2L HEENT: DMM, PERRL LUNGS: CTAB, No W/C CARDS: RRR, S1, S2, ABD: Soft, ND SKIN: Warm/dry, No rashes Laboratory Tests Test 07/22/18 18:58 07/23/18 03:49 07/23/18 13:00 Activated Partial Thromboplast Time > 150 SEC (23-33) *H 138 SEC (23-33) H 58 SEC (23-33) H White Blood Count 3.9 K/UL (4.8-10.8) L Red Blood Count 3.45 M/UL (4.70-6.10) L Hemoglobin 10.1 G/DL (14.2-18.0) L Hematocrit 30.3 % (42.0-52.0) L Mean Corpuscular Volume 88 FL (80-99) Mean Corpuscular Hemoglobin 29.3 PG (27.0-31.0) Mean Corpuscular Hemoglobin Concent 33.3 G/DL (32.0-36.0) Red Cell Distribution Width 13.0 % (11.6-14.8) Platelet Count 197 K/UL (150-450) Mean Platelet Volume 4.8 FL (6.5-10.1) L Neutrophils (%) (Auto) 61.7 % (45.0-75.0) Lymphocytes (%) (Auto) 18.1 % (20.0-45.0) L Monocytes (%) (Auto) 14.9 % (1.0-10.0) H Eosinophils (%) (Auto) 4.5 % (0.0-3.0) H Basophils (%) (Auto) 0.8 % (0.0-2.0) Sodium Level 143 MMOL/L (136-145) Potassium Level 3.3 MMOL/L (3.5-5.1) L Chloride Level 108 MMOL/L (98-107) H Carbon Dioxide Level 26 MMOL/L (21-32) Anion Gap 9 mmol/L (5-15) Blood Urea Nitrogen 7 mg/dL (7-18) Creatinine 0.8 MG/DL (0.55-1.30) Estimat Glomerular Filtration Rate mL/min (>60) Glucose Level 106 MG/DL (74-106) Calcium Level 8.9 MG/DL (8.5-10.1) Total Bilirubin 0.3 MG/DL (0.2-1.0) Aspartate Amino Transf (AST/SGOT) 11 U/L (15-37) L Alanine Aminotransferase (ALT/SGPT) 23 U/L (12-78) Alkaline Phosphatase 144 U/L (46-116) H Pro-B-Type Natriuretic Peptide 425 pg/mL (0-125) H Total Protein 6.6 G/DL (6.4-8.2) Albumin 2.1 G/DL (3.4-5.0) L Globulin 4.5 g/dL Albumin/Globulin Ratio 0.5 (1.0-2.7) L Current Medications Medications (Trade) Dose Ordered Sig/Jesi Route PRN Reason Start Time Stop Time Status Last Admin Dose Admin Acetaminophen (Tylenol) 650 mg Q6H PRN NG FOR TEMP > 100 OR PAIN 1-6 07/21/18 19:45 08/19/18 19:44 Cefazolin Sodium 1 gm/Dextrose 55 ml @ 110 mls/hr Q8H IVPB 07/22/18 02:00 07/28/18 17:59 07/23/18 09:47 Chlorhexidine Gluconate (Candie-Hex 2%) 1 applic DAILY@2000 TOPIC 07/21/18 20:00 08/15/18 19:59 07/22/18 20:06 Dextrose (Dextrose 50%) 25 ml Q30M PRN IV Hypoglycemia 07/21/18 19:45 08/12/18 01:14 Dextrose (Dextrose 50%) 50 ml Q30M PRN IV Hypoglycemia 07/21/18 19:45 08/12/18 01:14 Dextrose/Sodium Chloride 1,000 ml @ 50 mls/hr Q20H IV 07/21/18 19:30 08/20/18 06:14 07/23/18 11:15 Famotidine (Pepcid I.v.) 20 mg Q12HR IVP 07/21/18 21:00 08/12/18 08:59 07/23/18 08:33 Heparin Sodium (Porcine) (Heparin 5000 units/ml) 3,000 units ONCE IV 07/23/18 13:45 07/23/18 15:00 Heparin Sodium/ Dextrose 500 ml @ 40.098 mls/ hr ADJUST PER PROTOCOL IV 07/23/18 13:46 08/22/18 13:45 Insulin Aspart (NovoLOG) EVERY 6 HOURS SUBQ 07/22/18 00:00 08/12/18 12:29 Levetiracetam 100 ml @ 400 mls/hr Q12H IVPB 07/21/18 21:15 08/13/18 21:14 07/23/18 09:09 Levetiracetam 100 ml @ 400 mls/hr Q12HR IVPB 07/21/18 21:00 08/13/18 20:59 07/23/18 08:33 Morphine Sulfate (Morphine Sulfate) 4 mg Q4H PRN IVP For Pain 07/21/18 19:45 07/27/18 23:44 07/21/18 20:14 Potassium Chloride 100 ml @ 50 mls/hr Q2H IVPB 07/23/18 12:00 07/23/18 15:59 07/23/18 12:29 Valproate Sodium 1000 mg/Dextrose 65 ml @ 32.5 mls/hr Q12HR@0100,1300 IV 07/22/18 01:00 08/13/18 12:59 07/23/18 12:29 Matteo Hunt MD Jul 23, 2018 14:14
--- NOTE | 2018-07-23 14:50 | GI Initial Consult Note ---
History of Present Illness General Date patient seen: Jul 23, 2018 Time patient seen: 14:50 Referring physician: Dr. Will Mejía Reason for Consultation: PEG EVALUATION Present Illness HPI Patient is a 72-year-old male with history of traumatic brain injury and seizure disorder who is admitted with chief complaint of intractable seizures. The patient is a resident of [facility]. The patient began to have seizure activity yesterday, 07/12/2018. The patient was initially transported to [facility]. The patient is transferred to [facility] for insurance purposes. The patient is admitted with intractable breakthrough seizure and respiratory failure. GI consulted for PEG evaluation. ROS limited, patient seen awake alert no apparent distress with no active signs or symptoms of nausea vomiting. The patient presented with respiratory failure status post intubation now extubated on nasal cannula Had a swallow video study evaluation performed, in which he failed and deemed a high risk for chronic silent audible aspiration. It was recommended that the patient have follow-up terminal on oral feeding to meet his nutrition and hydration needs. The patient has a history of PEG placement x2, as noted by the healed GT sites on his abdomen. Home Meds Reported Medications Lorazepam* (LORAZEPAM*) 2 Mg Tablet, 2 MG ORAL Q1HR PRN for seizures, TAB 09/09/16 Levofloxacin* (LEVAQUIN*) 250 Mg Tablet, 250 MG ORAL DAILY for 5 Days, TAB 09/09/16 Acetaminophen* (TYLENOL EXTRA STRENGTH*) 500 Mg Tablet, 500 MG ORAL Q6H PRN for Mild Pain/Temp > 100.5, TAB 0 Refills 09/09/16 Polyethylene Glycol 3350* (MIRALAX*) 17 Gm Powd.pack, 17 GM ORAL DAILY PRN for Constipation, PACKET 09/09/16 Ondansetron* (ZOFRAN*) 4 Mg/2 Ml Vial, 4 MG IV Q6H PRN for Nausea & Vomiting, VIAL 09/09/16 Zolpidem Tartrate* (AMBIEN*) 5 Mg Tablet, 5 MG ORAL BEDTIME PRN for Insomnia, TAB 09/09/16 Al Hydroxide/mg Hydroxide (Mag-Al Liquid) 30 Ml Oral.susp, 30 ML ORAL PRN for gi upset, ML 09/09/16 Buspirone Hcl* (BUSPAR*) 10 Mg Tablet, 10 MG ORAL BID, #15 TAB 0 Refills 09/09/16 Heparin Sod (Porcine) (HEPARIN SODIUM*) 5 000/1 Ml Vial, 5000 UNITS SUBQ EVERY 12 HOURS, VIAL 09/09/16 Lisinopril (LISINOPRIL*) 20 Mg Tablet, 20 MG ORAL DAILY, TAB 09/09/16 Levetiracetam (KEPPRA) 1,000 Mg Tablet, 1500 MG ORAL Q12HR, #30 TAB 0 Refills 09/09/16 Gabapentin* (NEURONTIN*) 400 Mg Capsule, 400 MG ORAL THREE TIMES A DAY, #15 CAP 0 Refills 09/09/16 Hydrocodone Bit/Acetaminophen 10-325* (NORCO 10-325*) 1 Each Tablet, 1 TAB ORAL Q6H PRN for For Pain, #10 TAB 0 Refills PRN PAIN 09/09/16 Memantine Hcl* (NAMENDA*) 5 Mg Tablet, 5 MG ORAL TWICE A DAY, TAB 09/09/16 Buspirone Hcl* (BUSPIRONE HCL*) 10 Mg Tablet, 10 MG ORAL TWICE A DAY, #60 TAB 0 Refills 08/19/16 Med list reviewed/reconciled: Yes Allergies: Coded Allergies: HALOPERIDOL (Verified Allergy, Mild, [place] really bad, 07/05/16) Makes him irritable. THIORIDAZINE (Verified Allergy, Mild, [place] really bad, 07/05/16) Makes him violent TRAZODONE (Verified Allergy, Mild, [place] really bad, 07/05/16) Too strong; inability to move. Uncoded Allergies: PSYCHOTROPIC MEDICATION (Allergy, Mild, 08/13/14) Patient History Limited by: medical condition History Provided By: Medical Record [facility] Narrative 1. Traumatic brain injury as above. 2. Seizure disorder. 3. Chronic obstructive pulmonary disease. 4. Metabolic encephalopathy. 5. Diabetes type 2. 6. Renal failure. 7. Hypertension. 8. Gastroesophageal reflux disease. 9. Coronary artery disease. 10. Anemia. 11. History of gastrointestinal hemorrhage. 12. Hypercholesterolemia. 13. Dysphagia, status post PEG placement. 14. Cerebrovascular disease, status post cerebrovascular accident. PAST SURGICAL HISTORY: Significant for PEG placement, now removed. Review of Systems All Other Systems: limited Physical Exam Vital Signs Date Time Temp Pulse Resp B/P (MAP) Pulse Ox O2 Delivery O2 Flow Rate FiO2 07/19/18 07:00 77 15 99/61 98 Mechanical Ventilator 30 6/6/19 08:00 99.6 07/19/18 11:22 10.0 Sp02 EP Interpretation: reviewed, normal Labs Laboratory Tests Test 07/22/18 18:58 07/23/18 03:49 07/23/18 13:00 Activated Partial Thromboplast Time > 150 SEC (23-33) *H 138 SEC (23-33) H 58 SEC (23-33) H White Blood Count 3.9 K/UL (4.8-10.8) L Red Blood Count 3.45 M/UL (4.70-6.10) L Hemoglobin 10.1 G/DL (14.2-18.0) L Hematocrit 30.3 % (42.0-52.0) L Mean Corpuscular Volume 88 FL (80-99) Mean Corpuscular Hemoglobin 29.3 PG (27.0-31.0) Mean Corpuscular Hemoglobin Concent 33.3 G/DL (32.0-36.0) Red Cell Distribution Width 13.0 % (11.6-14.8) Platelet Count 197 K/UL (150-450) Mean Platelet Volume 4.8 FL (6.5-10.1) L Neutrophils (%) (Auto) 61.7 % (45.0-75.0) Lymphocytes (%) (Auto) 18.1 % (20.0-45.0) L Monocytes (%) (Auto) 14.9 % (1.0-10.0) H Eosinophils (%) (Auto) 4.5 % (0.0-3.0) H Basophils (%) (Auto) 0.8 % (0.0-2.0) Sodium Level 143 MMOL/L (136-145) Potassium Level 3.3 MMOL/L (3.5-5.1) L Chloride Level 108 MMOL/L (98-107) H Carbon Dioxide Level 26 MMOL/L (21-32) Anion Gap 9 mmol/L (5-15) Blood Urea Nitrogen 7 mg/dL (7-18) Creatinine 0.8 MG/DL (0.55-1.30) Estimat Glomerular Filtration Rate mL/min (>60) Glucose Level 106 MG/DL (74-106) Calcium Level 8.9 MG/DL (8.5-10.1) Total Bilirubin 0.3 MG/DL (0.2-1.0) Aspartate Amino Transf (AST/SGOT) 11 U/L (15-37) L Alanine Aminotransferase (ALT/SGPT) 23 U/L (12-78) Alkaline Phosphatase 144 U/L (46-116) H Pro-B-Type Natriuretic Peptide 425 pg/mL (0-125) H Total Protein 6.6 G/DL (6.4-8.2) Albumin 2.1 G/DL (3.4-5.0) L Globulin 4.5 g/dL Albumin/Globulin Ratio 0.5 (1.0-2.7) L General Appearance: well appearing, no apparent distress, alert Head: normocephalic EENT: PERRL/EOMI, normal ENT inspection Neck: supple Respiratory: normal breath sounds, no respiratory distress Cardiovascular: normal rate Gastrointestinal: normal inspection, non tender, soft, normal bowel sounds, non -distended Rectal: deferred Genitourinary: deferred Musculoskeletal: normal inspection, back normal Neurologic: normal inspection, alert, oriented x3, responsive Psychiatric: normal inspection, judgement/insight normal, memory normal Skin: normal inspection, normal color, no rash, warm/dry, palpation normal, well hydrated Lymphatic: normal inspection, no adenopathy Current Medications Current Medications Medications (Trade) Dose Ordered Sig/Jesi Route PRN Reason Start Time Stop Time Status Last Admin Dose Admin Acetaminophen (Tylenol) 650 mg Q6H PRN NG FOR TEMP > 100 OR PAIN 1-6 07/21/18 19:45 08/19/18 19:44 Cefazolin Sodium 1 gm/Dextrose 55 ml @ 110 mls/hr Q8H IVPB 07/22/18 02:00 07/28/18 17:59 07/23/18 09:47 Chlorhexidine Gluconate (Candie-Hex 2%) 1 applic DAILY@2000 TOPIC 07/21/18 20:00 08/15/18 19:59 07/22/18 20:06 Dextrose (Dextrose 50%) 25 ml Q30M PRN IV Hypoglycemia 07/21/18 19:45 08/12/18 01:14 Dextrose (Dextrose 50%) 50 ml Q30M PRN IV Hypoglycemia 07/21/18 19:45 08/12/18 01:14 Dextrose/Sodium Chloride 1,000 ml @ 50 mls/hr Q20H IV 07/21/18 19:30 08/20/18 06:14 07/23/18 11:15 Famotidine (Pepcid I.v.) 20 mg Q12HR IVP 07/21/18 21:00 08/12/18 08:59 07/23/18 08:33 Heparin Sodium (Porcine) (Heparin 5000 units/ml) 3,000 units ONCE IV 07/23/18 13:45 07/23/18 15:00 07/23/18 14:12 Heparin Sodium/ Dextrose 500 ml @ 40.098 mls/ hr ADJUST PER PROTOCOL IV 07/23/18 13:46 08/22/18 13:45 07/23/18 14:14 Insulin Aspart (NovoLOG) EVERY 6 HOURS SUBQ 07/22/18 00:00 08/12/18 12:29 Levetiracetam 100 ml @ 400 mls/hr Q12H IVPB 07/21/18 21:15 08/13/18 21:14 07/23/18 09:09 Levetiracetam 100 ml @ 400 mls/hr Q12HR IVPB 07/21/18 21:00 08/13/18 20:59 07/23/18 08:33 Morphine Sulfate (Morphine Sulfate) 4 mg Q4H PRN IVP For Pain 07/21/18 19:45 07/27/18 23:44 07/21/18 20:14 Potassium Chloride 100 ml @ 50 mls/hr Q2H IVPB 07/23/18 12:00 07/23/18 15:59 07/23/18 14:23 Valproate Sodium 1000 mg/Dextrose 65 ml @ 32.5 mls/hr Q12HR@0100,1300 IV 07/22/18 01:00 08/13/18 12:59 07/23/18 12:29 GI: Plan Problems: (1) Severe malnutrition (2) Encounter for PEG (percutaneous endoscopic gastrostomy) (3) Dehydration (4) Iron deficiency anemia (5) Anemia (6) Diabetes mellitus (7) Acute encephalopathy Plan PEG to be scheduled if family agrees, unable to contact family today. Insert NGT Okay to start tube feedings per RD after imaging confirmation anemia work up OB stool r/o GI bleed monitor H&H, prn transfusions bowel regimen ppi fu labs Discussed with Dr. Rubin. Thank you for this patient referral, we will follow. The patient was seen and examined at bedside and all new and available data was reviewed in the patients chart. I agree with the above findings, impression and plan. (Patient seen earlier today. Signature stamp does not reflect patient encounter time.). - MD Velvet CastelanAbrazo Central CampusPopCornell MANDI Jul 23, 2018 14:50
--- NOTE | 2018-07-23 14:53 | NUR ---
CASE MANAGEMENT: REVIEW 07/23/2018 SI:ACUTE RESP FAILURE. T 97.7 HR 70 RR 16 B/P 117/57 SATS 97% ON 2L/NC WBC 3.9 K 3.3 CL 108 AST 11 ALP 144 BNP 425 IS:IVF @ 50 mL/HR INSULIN ASPART SUBQ Q6H HEPARIN DRIP PER PARAMETERS KEPPRA IV Q12H KCL IV Q2H CEFAZOLIN IV Q8H SDU
[2018-07-23 16:00] VITALS: BP 130/73
--- NOTE | 2018-07-23 19:03 | NUR ---
NURSE NOTES: unable to insert NGT, charge nurse aware.
--- NOTE | 2018-07-23 19:04 | NUR ---
HAND-OFF: Report given to KIANA TAMAYO, NO ANY DISTRESS AT THIS TIME.
--- NOTE | 2018-07-23 19:30 | NUR ---
JEAN CARLOS NOTES: Pt is received Pt resting on the bed and awake and confused. Pt is agitated. On O2 2L via nasal cannula and no sign of acute distress noted. On Tele monitor with SR. Pt has PICC line on Lt. upper arm. Dressing is clean and dry and patent. On bilateral wrist soft restraint. Trying to release restraint when during care but pt still trying to touch PICC line, Sims and nasal cannula. Pt truing to get out of bed without assistance. Given Verbal cueing but he didn't understand. Checked circulation and comfort. Pt has dressing on Rt. wrist for skin tear. Changed position. On Sims cath and patent and drainage well. On heparin drip with 26U/kg/hr and no sign of acute bleeding. Placed fall and seizure precaution. Will continue to care plan.
[2018-07-23 20:00] VITALS: BP 134/68
[2018-07-23] MEDS: Dyna-Hex 2% Top Sol 2oz TOPIC SCH (20:01)
--- NOTE | 2018-07-23 20:35 | Internal Med Progress Note ---
Subjective Date of Service: Jul 23, 2018 Physician Name RojoMichael Attending Physician Will Mejía MD Current Medications Medications (Trade) Dose Ordered Sig/Jesi Route PRN Reason Start Time Stop Time Status Last Admin Dose Admin Acetaminophen (Tylenol) 650 mg Q6H PRN NG FOR TEMP > 100 OR PAIN 1-07/21/18 19:45 08/19/18 19:44 Cefazolin Sodium 1 gm/Dextrose 55 ml @ 110 mls/hr Q8H IVPB 07/22/18 02:00 07/28/18 17:59 07/23/18 17:47 Chlorhexidine Gluconate (Candie-Hex 2%) 1 applic DAILY@2000 TOPIC 07/21/18 20:00 08/15/18 19:59 07/23/18 20:01 Dextrose (Dextrose 50%) 25 ml Q30M PRN IV Hypoglycemia 07/21/18 19:45 08/12/18 01:14 Dextrose (Dextrose 50%) 50 ml Q30M PRN IV Hypoglycemia 07/21/18 19:45 08/12/18 01:14 Dextrose/Sodium Chloride 1,000 ml @ 50 mls/hr Q20H IV 07/21/18 19:30 08/20/18 06:14 07/23/18 11:15 Famotidine (Pepcid I.v.) 20 mg Q12HR IVP 07/21/18 21:00 08/12/18 08:59 07/23/18 08:33 Heparin Sodium/ Dextrose 500 ml @ 40.098 mls/ hr ADJUST PER PROTOCOL IV 07/23/18 13:46 08/22/18 13:45 07/23/18 14:14 Insulin Aspart (NovoLOG) EVERY 6 HOURS SUBQ 07/22/18 00:00 08/12/18 12:29 Levetiracetam 100 ml @ 400 mls/hr Q12H IVPB 07/21/18 21:15 08/13/18 21:14 07/23/18 09:09 Levetiracetam 100 ml @ 400 mls/hr Q12HR IVPB 07/21/18 21:00 08/13/18 20:59 07/23/18 08:33 Morphine Sulfate (Morphine Sulfate) 4 mg Q4H PRN IVP For Pain 07/21/18 19:45 07/27/18 23:44 07/21/18 20:14 Valproate Sodium 1000 mg/Dextrose 65 ml @ 32.5 mls/hr Q12HR@0100,1300 IV 07/22/18 01:00 08/13/18 12:59 07/23/18 12:29 Allergies: Coded Allergies: HALOPERIDOL (Verified Allergy, Mild, [place] really bad, 07/05/16) Makes him irritable. THIORIDAZINE (Verified Allergy, Mild, [place] really bad, 07/05/16) Makes him violent TRAZODONE (Verified Allergy, Mild, [place] really bad, 07/05/16) Too strong; inability to move. Uncoded Allergies: PSYCHOTROPIC MEDICATION (Allergy, Mild, 08/13/14) ROS Limited/Unobtainable: Yes Subjective 72 YO M admitted with breakthrough seizure. Now respiratory failure. Extubated 07/19/18. Cover for Int Med-Dr Mejía. LUIS Objective Last Vital Signs Date Time Temp Pulse Resp B/P (MAP) Pulse Ox O2 Delivery O2 Flow Rate FiO2 07/23/18 20:00 Nasal Cannula 2.0 07/23/18 16:00 97.7 70 22 130/73 100 07/23/18 07:18 28 Laboratory Tests Test 07/23/18 03:49 07/23/18 13:00 White Blood Count 3.9 K/UL (4.8-10.8) L Red Blood Count 3.45 M/UL (4.70-6.10) L Hemoglobin 10.1 G/DL (14.2-18.0) L Hematocrit 30.3 % (42.0-52.0) L Mean Corpuscular Volume 88 FL (80-99) Mean Corpuscular Hemoglobin 29.3 PG (27.0-31.0) Mean Corpuscular Hemoglobin Concent 33.3 G/DL (32.0-36.0) Red Cell Distribution Width 13.0 % (11.6-14.8) Platelet Count 197 K/UL (150-450) Mean Platelet Volume 4.8 FL (6.5-10.1) L Neutrophils (%) (Auto) 61.7 % (45.0-75.0) Lymphocytes (%) (Auto) 18.1 % (20.0-45.0) L Monocytes (%) (Auto) 14.9 % (1.0-10.0) H Eosinophils (%) (Auto) 4.5 % (0.0-3.0) H Basophils (%) (Auto) 0.8 % (0.0-2.0) Activated Partial Thromboplast Time 138 SEC (23-33) H 58 SEC (23-33) H Sodium Level 143 MMOL/L (136-145) Potassium Level 3.3 MMOL/L (3.5-5.1) L Chloride Level 108 MMOL/L (98-107) H Carbon Dioxide Level 26 MMOL/L (21-32) Anion Gap 9 mmol/L (5-15) Blood Urea Nitrogen 7 mg/dL (7-18) Creatinine 0.8 MG/DL (0.55-1.30) Estimat Glomerular Filtration Rate mL/min (>60) Glucose Level 106 MG/DL (74-106) Calcium Level 8.9 MG/DL (8.5-10.1) Total Bilirubin 0.3 MG/DL (0.2-1.0) Aspartate Amino Transf (AST/SGOT) 11 U/L (15-37) L Alanine Aminotransferase (ALT/SGPT) 23 U/L (12-78) Alkaline Phosphatase 144 U/L (46-116) H Pro-B-Type Natriuretic Peptide 425 pg/mL (0-125) H Total Protein 6.6 G/DL (6.4-8.2) Albumin 2.1 G/DL (3.4-5.0) L Globulin 4.5 g/dL Albumin/Globulin Ratio 0.5 (1.0-2.7) L Intake and Output 07/22/18 07/23/18 19:00 07:00 Intake Total 1598.334 ml 1470.199 ml Output Total 1475 ml 1000 ml Balance 123.334 ml 470.199 ml IV Total 1598.334 ml 1470.199 ml Output Urine Total 1475 ml 1000 ml # Bowel Movements 2 2 Objective PHYSICAL EXAMINATION: GENERAL: The patient is a thin-appearing male, in no apparent distress. The patient is intubated and sedated. HEENT: Eyes, pupils are equal and responsive to light and accommodation. Extraocular movements are intact. NECK: Supple. No lymphadenopathy. CHEST: Nasal canula; Few expiratory wheezes bilaterally. Otherwise, without crackles or rales. CARDIOVASCULAR: Tachycardic, regular rate. S1 and S2 are normal without murmurs, rubs, or gallops. ABDOMEN: Soft, nontender, and nondistended. Positive bowel sounds. No evidence of hepatosplenomegaly. Currently, no rebound or guarding noted. EXTREMITIES: Negative for clubbing, cyanosis, or edema. RECTAL/GENITAL: Not performed. NEUROLOGICALLY: Unable to assess secondary to the patient's mental status. Assessment/Plan Assessment/Plan ASSESSMENT: This is a 72-year-old male. 1. Intractable seizures. 2. Respiratory failure. 3. Probable pneumonia of the right upper lobe. 4. History of seizure disorder. 5. Chronic obstructive pulmonary disease. 6. Diabetes type 2. 7. Hypertension. 8. Metabolic encephalopathy. 9. Chronic obstructive pulmonary disease. 10. Chronic renal failure. 11. Traumatic brain injury. 12. Gastroesophageal reflux disease. 13. Coronary artery disease. 14. Anemia. 15. History of gastrointestinal hemorrhage. 16. Hypercholesteremia. 17. Cerebrovascular disease, status post cerebrovascular accident. 18. Dysphagia. 19. Prostate cancer with mets 20. UTI=staph haemolyticus TREATMENT: 1. Intractable seizure. A Neurology consultation has been obtained. The patient has been started on Ativan intravenously. We will follow recommendations of Neurology. Continue Keppra, Dilantin, and Depakote as above. 2. Respiratory failure. Pulmonary consultation has been obtained with Dr. Maria E Shine. The patient is S/P extubation 07/19/18 now on nasal canula We will follow recommendations of Pulmonary. 3. Chronic obstructive pulmonary disease. As above, a Pulmonary consultation has been obtained with Dr. Maria E Shine. 4. Diabetes type 2. The patient has been placed on a NovoLog sliding scale. 5. Hypertension. The patient is currently hypotensive. 6. Metabolic encephalopathy. 7. Renal failure. 8. Traumatic brain injury. 9. Gastroesophageal reflux disease. 10. Coronary artery disease. 11. Anemia. 12. Gastrointestinal hemorrhage. 13. Hypercholesterolemia. 14. Cerebrovascular disease. 15. Dysphagia, status post PEG placement. 16. D/C vanco for staph UTI; D/C zosyn for peumonia-await urine and sputum cultures per ID 17. ID consult=Michael Land MD Jul 23, 2018 20:35
--- NOTE | 2018-07-23 21:30 | NUR ---
NURSE NOTES: Noted PTT result is 114. Verified with pharmacist Dand and hold heparin drip 30mis and will decrease to dose to 23U/kg/hr. Will continue to monitor.
--- NOTE | 2018-07-23 23:41 | Neurology Progress Note ---
Interim History Interim History ROS Limited/Unobtainable: Yes Complaints: AMS Events: Doing well off vent, KAT x 4, confused but following commands. Interim History This visit was performed on July 21, [address] Abad Iniguez. Review of Systems Neuro Review of Systems Confused but non focal and strong. Objective Physical Exam Last Vital Signs Date Time Temp Pulse Resp B/P (MAP) Pulse Ox O2 Delivery O2 Flow Rate FiO2 07/23/18 20:00 83 07/23/18 20:00 Nasal Cannula 2.0 07/23/18 20:00 98.8 22 134/68 99 07/23/18 07:18 28 Laboratory Tests Test 07/23/18 03:49 07/23/18 13:00 07/23/18 20:30 White Blood Count 3.9 K/UL (4.8-10.8) L Red Blood Count 3.45 M/UL (4.70-6.10) L Hemoglobin 10.1 G/DL (14.2-18.0) L Hematocrit 30.3 % (42.0-52.0) L Mean Corpuscular Volume 88 FL (80-99) Mean Corpuscular Hemoglobin 29.3 PG (27.0-31.0) Mean Corpuscular Hemoglobin Concent 33.3 G/DL (32.0-36.0) Red Cell Distribution Width 13.0 % (11.6-14.8) Platelet Count 197 K/UL (150-450) Mean Platelet Volume 4.8 FL (6.5-10.1) L Neutrophils (%) (Auto) 61.7 % (45.0-75.0) Lymphocytes (%) (Auto) 18.1 % (20.0-45.0) L Monocytes (%) (Auto) 14.9 % (1.0-10.0) H Eosinophils (%) (Auto) 4.5 % (0.0-3.0) H Basophils (%) (Auto) 0.8 % (0.0-2.0) Activated Partial Thromboplast Time 138 SEC (23-33) H 58 SEC (23-33) H 113 SEC (23-33) H Sodium Level 143 MMOL/L (136-145) Potassium Level 3.3 MMOL/L (3.5-5.1) L Chloride Level 108 MMOL/L (98-107) H Carbon Dioxide Level 26 MMOL/L (21-32) Anion Gap 9 mmol/L (5-15) Blood Urea Nitrogen 7 mg/dL (7-18) Creatinine 0.8 MG/DL (0.55-1.30) Estimat Glomerular Filtration Rate mL/min (>60) Glucose Level 106 MG/DL (74-106) Calcium Level 8.9 MG/DL (8.5-10.1) Total Bilirubin 0.3 MG/DL (0.2-1.0) Aspartate Amino Transf (AST/SGOT) 11 U/L (15-37) L Alanine Aminotransferase (ALT/SGPT) 23 U/L (12-78) Alkaline Phosphatase 144 U/L (46-116) H Pro-B-Type Natriuretic Peptide 425 pg/mL (0-125) H Total Protein 6.6 G/DL (6.4-8.2) Albumin 2.1 G/DL (3.4-5.0) L Globulin 4.5 g/dL Albumin/Globulin Ratio 0.5 (1.0-2.7) L General: well developed, well nourished Head: normocophalic Neck: no rigidity EENT: benign Neurologic Exam Mental Status: awake, alert, other Speech: other Language: other Cranial Nerve II: fundus normal, visual dodd, no papilledema Cranial Nerves III, IV, : PERRLA, EOMI Cranial Nerve V: normal facial sensations, temporales function normal, masseters function normal, pterygoids function normal, other Cranial Nerve VII: no facial asymmetry, normal facial expressions Cranial Nerve VIII: normal hearing, no nystagmus Cranial Nerve IX: normal palate elevation, gag response Cranial Nerve XI: SCM symmetric, other Cranial Nerve XII: tongue midline, no tongue atrophy/fasciculations, other Motor System: normal muscle tone, strength 5/5, no involuntary movement, no muscle wasting Sensory: normal pinprick, normal light touch, other Coordination: other Deep Tendon Reflexes: 1+ bicep (L), 1+ bicep (R), 1+ tricep (L), 1+ tricep (R) , 1+ brachioradialis (L), 1+ brachioradialis (R), 1+ knee (L), 1+ knee (R), 1+ ankle (L), 1+ ankle (R) Reflexes: flexor plantar (L), flexor plantar (R); extensor plantar (L), extensor plantar (R) Stance: normal Objective Awake, alert eyes open, tracking with eyes- he He is KAT x 4 and some to command with full strength- Pupils are briskly reactive and PERRL - His exam is non focal Has BIPAP mask on now Impression/Recommendations Problems: (1) Acute metabolic encephalopathy (2) Acute encephalopathy (3) Drug abuse (4) COPD (chronic obstructive pulmonary disease) (5) Diabetes mellitus (6) Anemia (7) Acute respiratory failure (8) Seizure disorder (9) UTI (urinary tract infection) (10) Prostate cancer, primary, 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 site (11) Iron deficiency anemia (12) Acute renal failure (ARF) Status: stable, progressing, tolerating diet Recommendations Abx as per ID Valproate 1000mg BID to continue for seizure control Swallow eval and determination regarding method of oral delivery for conversion of meds following extubation. Continue with Q2 Neuro Obs while in ICU or step down to monitor for seizure activity--> once out of ICU may go to Q 4 hr neuro obs PT EVAL, patient is strong and non focal . May continue with Ativan 1mg as needed for seizure Kenia Pompa N.P. Jul 23, 2018 23:41
--- NOTE | 2018-07-23 23:41 | Neurology Progress Note ---
Interim History Interim History ROS Limited/Unobtainable: Yes Complaints: AMS Events: Extubated Yesterday Interim History This visit was performed on July 22, [address] Abad Iniguez. Review of Systems Neuro Review of Systems Slightly more lethargic, not on O2 mask at visit today. Quietly spoken, still nonfocal Objective Physical Exam Last Vital Signs Date Time Temp Pulse Resp B/P (MAP) Pulse Ox O2 Delivery O2 Flow Rate FiO2 07/23/18 20:00 83 07/23/18 20:00 Nasal Cannula 2.0 07/23/18 20:00 98.8 22 134/68 99 07/23/18 07:18 28 Laboratory Tests Test 07/23/18 03:49 07/23/18 13:00 07/23/18 20:30 White Blood Count 3.9 K/UL (4.8-10.8) L Red Blood Count 3.45 M/UL (4.70-6.10) L Hemoglobin 10.1 G/DL (14.2-18.0) L Hematocrit 30.3 % (42.0-52.0) L Mean Corpuscular Volume 88 FL (80-99) Mean Corpuscular Hemoglobin 29.3 PG (27.0-31.0) Mean Corpuscular Hemoglobin Concent 33.3 G/DL (32.0-36.0) Red Cell Distribution Width 13.0 % (11.6-14.8) Platelet Count 197 K/UL (150-450) Mean Platelet Volume 4.8 FL (6.5-10.1) L Neutrophils (%) (Auto) 61.7 % (45.0-75.0) Lymphocytes (%) (Auto) 18.1 % (20.0-45.0) L Monocytes (%) (Auto) 14.9 % (1.0-10.0) H Eosinophils (%) (Auto) 4.5 % (0.0-3.0) H Basophils (%) (Auto) 0.8 % (0.0-2.0) Activated Partial Thromboplast Time 138 SEC (23-33) H 58 SEC (23-33) H 113 SEC (23-33) H Sodium Level 143 MMOL/L (136-145) Potassium Level 3.3 MMOL/L (3.5-5.1) L Chloride Level 108 MMOL/L (98-107) H Carbon Dioxide Level 26 MMOL/L (21-32) Anion Gap 9 mmol/L (5-15) Blood Urea Nitrogen 7 mg/dL (7-18) Creatinine 0.8 MG/DL (0.55-1.30) Estimat Glomerular Filtration Rate mL/min (>60) Glucose Level 106 MG/DL (74-106) Calcium Level 8.9 MG/DL (8.5-10.1) Total Bilirubin 0.3 MG/DL (0.2-1.0) Aspartate Amino Transf (AST/SGOT) 11 U/L (15-37) L Alanine Aminotransferase (ALT/SGPT) 23 U/L (12-78) Alkaline Phosphatase 144 U/L (46-116) H Pro-B-Type Natriuretic Peptide 425 pg/mL (0-125) H Total Protein 6.6 G/DL (6.4-8.2) Albumin 2.1 G/DL (3.4-5.0) L Globulin 4.5 g/dL Albumin/Globulin Ratio 0.5 (1.0-2.7) L General: well developed, well nourished Head: normocophalic Neck: no rigidity EENT: benign Neurologic Exam Mental Status: awake, alert, other Speech: other Language: other Cranial Nerve II: fundus normal, visual dodd, no papilledema Cranial Nerves III, IV, : PERRLA, EOMI Cranial Nerve V: normal facial sensations, temporales function normal, masseters function normal, pterygoids function normal, other Cranial Nerve VII: no facial asymmetry, normal facial expressions Cranial Nerve VIII: normal hearing, no nystagmus Cranial Nerve IX: normal palate elevation, gag response Cranial Nerve XI: SCM symmetric, other Cranial Nerve XII: tongue midline, no tongue atrophy/fasciculations, other Motor System: normal muscle tone, strength 5/5, no involuntary movement, no muscle wasting Sensory: normal pinprick, normal light touch, other Coordination: other Deep Tendon Reflexes: 1+ bicep (L), 1+ bicep (R), 1+ tricep (L), 1+ tricep (R) , 1+ brachioradialis (L), 1+ brachioradialis (R), 1+ knee (L), 1+ knee (R), 1+ ankle (L), 1+ ankle (R) Reflexes: flexor plantar (L), flexor plantar (R); extensor plantar (L), extensor plantar (R) Stance: normal Objective Extubated with eyes open, tracking with eyes- he He is KAT x 4 and some to command with full strength- Pupils are briskly reactive and PERRL - His exam is non focal Has BIPAP mask on now Impression/Recommendations Problems: (1) Acute metabolic encephalopathy (2) Acute encephalopathy (3) Drug abuse (4) COPD (chronic obstructive pulmonary disease) (5) Diabetes mellitus (6) Anemia (7) Acute respiratory failure (8) Seizure disorder (9) UTI (urinary tract infection) (10) Prostate cancer, primary, 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 site (11) Iron deficiency anemia (12) Acute renal failure (ARF) Status: stable Recommendations Abx as per ID Valproate 1000mg BID to continue for seizure control Swallow eval and determination regarding method of oral delivery for conversion of meds following extubation. Continue with Q2 Neuro Obs while in ICU or step down to monitor for seizure activity---> Q4 once out of ICU PT EVAL, patient is strong and non focal . May continue with Ativan 1mg as eeded for seizure Kenia Pompa N.P. Jul 23, 2018 23:41
--- NOTE | 2018-07-23 23:42 | Neurology Progress Note ---
Interim History Interim History ROS Limited/Unobtainable: Yes Complaints: AMS Events: Still on NC, on hep drip, MS unchanged Interim History This visit was performed on July 23, [address] Abad Iniguez Review of Systems Neuro Review of Systems Stable, no new complaints All Systems: reviewed and negative except above Objective Physical Exam Last Vital Signs Date Time Temp Pulse Resp B/P (MAP) Pulse Ox O2 Delivery O2 Flow Rate FiO2 07/23/18 20:00 83 07/23/18 20:00 Nasal Cannula 2.0 07/23/18 20:00 98.8 22 134/68 99 07/23/18 07:18 28 Laboratory Tests Test 07/23/18 03:49 07/23/18 13:00 07/23/18 20:30 White Blood Count 3.9 K/UL (4.8-10.8) L Red Blood Count 3.45 M/UL (4.70-6.10) L Hemoglobin 10.1 G/DL (14.2-18.0) L Hematocrit 30.3 % (42.0-52.0) L Mean Corpuscular Volume 88 FL (80-99) Mean Corpuscular Hemoglobin 29.3 PG (27.0-31.0) Mean Corpuscular Hemoglobin Concent 33.3 G/DL (32.0-36.0) Red Cell Distribution Width 13.0 % (11.6-14.8) Platelet Count 197 K/UL (150-450) Mean Platelet Volume 4.8 FL (6.5-10.1) L Neutrophils (%) (Auto) 61.7 % (45.0-75.0) Lymphocytes (%) (Auto) 18.1 % (20.0-45.0) L Monocytes (%) (Auto) 14.9 % (1.0-10.0) H Eosinophils (%) (Auto) 4.5 % (0.0-3.0) H Basophils (%) (Auto) 0.8 % (0.0-2.0) Activated Partial Thromboplast Time 138 SEC (23-33) H 58 SEC (23-33) H 113 SEC (23-33) H Sodium Level 143 MMOL/L (136-145) Potassium Level 3.3 MMOL/L (3.5-5.1) L Chloride Level 108 MMOL/L (98-107) H Carbon Dioxide Level 26 MMOL/L (21-32) Anion Gap 9 mmol/L (5-15) Blood Urea Nitrogen 7 mg/dL (7-18) Creatinine 0.8 MG/DL (0.55-1.30) Estimat Glomerular Filtration Rate mL/min (>60) Glucose Level 106 MG/DL (74-106) Calcium Level 8.9 MG/DL (8.5-10.1) Total Bilirubin 0.3 MG/DL (0.2-1.0) Aspartate Amino Transf (AST/SGOT) 11 U/L (15-37) L Alanine Aminotransferase (ALT/SGPT) 23 U/L (12-78) Alkaline Phosphatase 144 U/L (46-116) H Pro-B-Type Natriuretic Peptide 425 pg/mL (0-125) H Total Protein 6.6 G/DL (6.4-8.2) Albumin 2.1 G/DL (3.4-5.0) L Globulin 4.5 g/dL Albumin/Globulin Ratio 0.5 (1.0-2.7) L General: well developed, well nourished Head: normocophalic Neck: no rigidity EENT: benign Neurologic Exam Mental Status: awake, alert, other Speech: other Language: other Cranial Nerve II: fundus normal, visual dodd, no papilledema Cranial Nerves III, IV, : PERRLA, EOMI Cranial Nerve V: normal facial sensations, temporales function normal, masseters function normal, pterygoids function normal, other Cranial Nerve VII: no facial asymmetry, normal facial expressions Cranial Nerve VIII: normal hearing, no nystagmus Cranial Nerve IX: normal palate elevation, gag response Cranial Nerve XI: SCM symmetric, other Cranial Nerve XII: tongue midline, no tongue atrophy/fasciculations, other Motor System: normal muscle tone, strength 5/5, no involuntary movement, no muscle wasting Sensory: normal pinprick, normal light touch, other Coordination: other Deep Tendon Reflexes: 1+ bicep (L), 1+ bicep (R), 1+ tricep (L), 1+ tricep (R) , 1+ brachioradialis (L), 1+ brachioradialis (R), 1+ knee (L), 1+ knee (R), 1+ ankle (L), 1+ ankle (R) Reflexes: flexor plantar (L), flexor plantar (R); extensor plantar (L), extensor plantar (R) Stance: normal Objective Extubated with eyes open, tracking with eyes- he He is KAT x 4 and some to command with full strength- Pupils are briskly reactive and PERRL - His exam is non focal Has BIPAP mask on now Impression/Recommendations Problems: (1) Acute metabolic encephalopathy (2) Acute encephalopathy (3) Drug abuse (4) COPD (chronic obstructive pulmonary disease) (5) Diabetes mellitus (6) Anemia (7) Acute respiratory failure (8) Seizure disorder (9) UTI (urinary tract infection) (10) Prostate cancer, primary, 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 site (11) Iron deficiency anemia (12) Acute renal failure (ARF) Status: stable Recommendations Abx as per ID Valproate 1000mg BID to continue for seizure control Swallow eval and determination regarding method of oral delivery for conversion of meds - may need NG tube inserted Continue with Q4 Neuro Obs PT EVAL, patient is strong and non focal . May continue with Ativan 1mg as eeded for seizure If exam waxes/wanes will recheck EEG Kenia Pompa N.P. Jul 23, 2018 23:42
--- NOTE | 2018-07-23 23:59 | NUR ---
RESPIRATORY NOTE: PT PLACED ON BIPAP PER CURRENT RESPIRATORY ORDERS. PT IS TOLERATING BIPAP WELL. PT HAS SOFT BILATERAL WRIST RESTRAINS SECURELY IN PLACE. NO S/S OF RESPIRATORY DISTRESS NOTED AT THIS TIME. WILL CONTINUE TO MONITOR.
[2018-07-24] VITALS: BP 133/80
[2018-07-24] MEDS: Valproate Sodium INJ 1,000 MG in D5W 55 ML IV SCH ×2 (00:25→13:37)
[2018-07-24] MEDS: ceFAZolin sod 1 GM in D5W 55 ML IVPB SCH ×3 (02:36→17:43)
[2018-07-24 04:00] VITALS: BP 121/80
[2018-07-24 04:18] LABS: BASOPHILS % (AUTO) 0.7 % (0.0-2.0); EOSINOPHILS % (AUTO) 3.3 % (0.0-3.0); HEMATOCRIT 29.7 % (42.0-52.0); HEMOGLOBIN 9.9 G/DL (14.2-18.0); LYMPHOCYTES % (AUTO) 18.4 % (20.0-45.0); MEAN CORPUSCULAR VOLUME 88 FL (80-99); MONOCYTES % (AUTO) 14.9 % (1.0-10.0); NEUTROPHILS % (AUTO) 62.7 % (45.0-75.0); PLATELET COUNT 190 K/UL (150-450); RED BLOOD COUNT 3.39 M/UL (4.70-6.10); RED CELL DISTRIBUTION WIDTH 12.6 % (11.6-14.8)
[2018-07-24 04:45] LABS: INR 1.2 (0.9-1.1)
[2018-07-24 04:46] LABS: ANION GAP 8 mmol/L (5-15); BLOOD UREA NITROGEN 5 mg/dL (7-18); CALCIUM 8.6 MG/DL (8.5-10.1); CARBON DIOXIDE 25 MMOL/L (21-32); CHLORIDE 109 MMOL/L (98-107); CREATININE 0.7 MG/DL (0.55-1.30); FERRITIN 67 NG/ML (8-388); POTASSIUM 3.2 MMOL/L (3.5-5.1); SODIUM 142 MMOL/L (136-145)
--- NOTE | 2018-07-24 05:03 | NUR ---
RESPIRATORY NOTE: PT REMAINED STABLE ON BIPAP WITH CURRENT ORDERS. BIPAP MASK AND CIRCUIT SECURE AND OUT OF THE WAY. NO S/S OF RESPIRATORY DISTRESS NOTED AT THIS TIME. BIPAP REMOVED AT 0540, PT PLACED ON 2LPM NASAL CANNULA WITHOUT ADVERSE REACTION. ALL VS WNL. NO RESPIRATORY DISTRESS NOTED AT THIS TIME.
[2018-07-24 05:27] LABS: % IRON SATURATION 18 % (15-50); IRON 30 ug/dL (50-175); TOTAL IRON BINDING CAPACITY 163 ug/dL (250-450)
[2018-07-24] MEDS ORDERED: Heparin 25,000u/D5W 500ml 500 ML IV SCH ×3 (05:30→23:00)
[2018-07-24] MEDS: NovoLOG Insulin Flexpen SUBQ SCH ×5 (06:00→23:37)
[2018-07-24] MEDS: D5 1/2NS 1,000 ML IV SCH (06:46)
--- NOTE | 2018-07-24 07:36 | NUR ---
HAND-OFF: Report given to RONI Waggoner. Pt is resting on the bed and no sign of acute distress noted.
[2018-07-24 08:00] VITALS: BP 142/61
--- NOTE | 2018-07-24 08:15 | NUR ---
NURSE NOTES: received pt in the bed, awake, confused, vital signs stable, no co pain, no SOB, skin warm and dry to touch, K 3.2, aware, Sims catheter with yellow urine, pt on Heparin drip 20u/kg, soft wrist restrains, bed in low position, call light within reach.
[2018-07-24] MEDS: levETIRAcetam 1,000mg/NS100ml 100 ML IVPB SCH ×2 (08:39→20:07)
[2018-07-24] MEDS: levETIRAcetam 500mg/NS100ml 100 ML IVPB SCH ×2 (09:10→20:38)
--- NOTE | 2018-07-24 10:12 | GI Progress Note ---
Assessment/Plan Problems: (1) Severe malnutrition ICD Codes: E43 - Unspecified severe protein-calorie malnutrition SNOMED: 57233613 (2) Encounter for PEG (percutaneous endoscopic gastrostomy) ICD Codes: Z43.1 - Encounter for attention to gastrostomy SNOMED: 829053821, 937275542 (3) Dehydration ICD Codes: E86.0 - Dehydration SNOMED: 96265270 (4) Drug abuse ICD Codes: F19.10 - Drug abuse SNOMED: 06704321 (5) Iron deficiency anemia ICD Codes: D50.9 - Iron deficiency anemia SNOMED: 35628141 (6) Anemia ICD Codes: D64.9 - Anemia, unspecified SNOMED: 596110693 Status: unchanged Status Narrative Discussed with Dr. Rubin Assessment/Plan PEG to be scheduled if family agrees, unable to contact family. NGT placement failed due to oxygen desaturation We will consider Dobbhoff placement today Okay to start tube feedings per RD after imaging confirmation anemia work up OB stool r/o GI bleed monitor H&H, prn transfusions bowel regimen ppi fu labs The patient was seen and examined at bedside and all new and available data was reviewed in the patients chart. I agree with the above findings, impression and plan. (Patient seen earlier today. Signature stamp does not reflect patient encounter time.). - Mu Rubin MD Subjective Subjective Limited Objective Last 24 Hour Vital Signs Date Time Temp Pulse Resp B/P (MAP) Pulse Ox O2 Delivery O2 Flow Rate FiO2 07/24/18 08:00 2.0 07/24/18 08:00 Bi-pap 07/24/18 07:50 97 Nasal Cannula 2.0 28 07/24/18 07:50 61 18 97 07/24/18 05:40 72 14 99 07/24/18 05:03 66 16 100 Facial 30 07/24/18 04:00 30 07/24/18 04:00 68 07/24/18 04:00 98.5 62 22 121/80 100 Bi-pap 30 07/24/18 04:00 Bi-pap 07/24/18 03:00 70 17 98 Facial 30 07/24/18 01:15 71 18 98 Facial 30 07/24/18 00:00 30 07/24/18 00:00 64 07/24/18 00:00 Nasal Cannula 2.0 07/24/18 00:00 98.6 71 22 133/80 99 Bi-pap 30 07/23/18 23:59 69 16 100 Facial 30 07/23/18 20:00 83 07/23/18 20:00 Nasal Cannula 2.0 07/23/18 20:00 2.0 07/23/18 20:00 98.8 82 22 134/68 99 Nasal Cannula 2.0 07/23/18 19:36 100 Nasal Cannula 2.0 28 07/23/18 16:00 97.7 70 22 130/73 100 Nasal Cannula 2.0 07/23/18 16:00 74 07/23/18 16:00 Nasal Cannula 2.0 07/23/18 16:00 2.0 07/23/18 12:00 69 07/23/18 12:00 2.0 07/23/18 12:00 Nasal Cannula 2.0 07/23/18 12:00 97.7 70 16 117/57 97 Nasal Cannula 2.0 Intake and Output 07/23/18 07/24/18 18:59 06:59 Intake Total 1248.757 ml 1328.452 ml Output Total 1150 ml 1200 ml Balance 98.757 ml 128.452 ml IV Total 1248.757 ml 1328.452 ml Output Urine Total 1150 ml 1200 ml # Bowel Movements 4 Laboratory Tests Test 07/23/18 13:00 07/23/18 20:30 07/24/18 04:10 Activated Partial Thromboplast Time 58 SEC (23-33) H 113 SEC (23-33) H 122 SEC (23-33) H White Blood Count 4.0 K/UL (4.8-10.8) L Red Blood Count 3.39 M/UL (4.70-6.10) L Hemoglobin 9.9 G/DL (14.2-18.0) L Hematocrit 29.7 % (42.0-52.0) L Mean Corpuscular Volume 88 FL (80-99) Mean Corpuscular Hemoglobin 29.2 PG (27.0-31.0) Mean Corpuscular Hemoglobin Concent 33.2 G/DL (32.0-36.0) Red Cell Distribution Width 12.6 % (11.6-14.8) Platelet Count 190 K/UL (150-450) Mean Platelet Volume 4.0 FL (6.5-10.1) L Neutrophils (%) (Auto) 62.7 % (45.0-75.0) Lymphocytes (%) (Auto) 18.4 % (20.0-45.0) L Monocytes (%) (Auto) 14.9 % (1.0-10.0) H Eosinophils (%) (Auto) 3.3 % (0.0-3.0) H Basophils (%) (Auto) 0.7 % (0.0-2.0) Reticulocyte Count Pending Prothrombin Time 12.2 SEC (9.30-11.50) H Prothromb Time International Ratio 1.2 (0.9-1.1) H Sodium Level 142 MMOL/L (136-145) Potassium Level 3.2 MMOL/L (3.5-5.1) L Chloride Level 109 MMOL/L (98-107) H Carbon Dioxide Level 25 MMOL/L (21-32) Anion Gap 8 mmol/L (5-15) Blood Urea Nitrogen 5 mg/dL (7-18) L Creatinine 0.7 MG/DL (0.55-1.30) Estimat Glomerular Filtration Rate mL/min (>60) Glucose Level 99 MG/DL (74-106) Calcium Level 8.6 MG/DL (8.5-10.1) Iron Level 30 ug/dL (50-175) L Total Iron Binding Capacity 163 ug/dL (250-450) L Percent Iron Saturation 18 % (15-50) Unsaturated Iron Binding 133 ug/dL (112-346) Ferritin 67 NG/ML (8-388) Vitamin B12 Level 1511 PG/ML (193-986) H Folate 17.4 NG/ML (8.6-58.9) Thyroid Stimulating Hormone (TSH) 0.566 uiU/mL (0.358-3.740) Free Thyroxine 1.07 NG/DL (0.76-1.46) Height (Feet): 6 Weight (Pounds): 171 General Appearance: no apparent distress, thin Cardiovascular: normal rate Respiratory/Chest: normal breath sounds, no respiratory distress Abdominal Exam: normal bowel sounds, non tender, soft Extremities: non-tender Gerald Verdin [employer]ICER Jul 24, 2018 10:12
--- NOTE | 2018-07-24 10:17 | Pulmonology Progress Note ---
Assessment/Plan Problems: (1) Acute respiratory failure (2) Acute metabolic encephalopathy (3) COPD (chronic obstructive pulmonary disease) (4) Acute renal failure (ARF) (5) Lumbar spondylosis (6) posttraumatic seizure disorder (7) Diabetes mellitus (8) Anemia (9) Chronic low back pain (10) Seizure disorder Assessment/Plan doing better failed swallow study Dubhoff will be tried by GI on Nasal [place] now respiratory treatment check electrolytes swallow study sliding scale diabetic diet symptomatic treatment dvt prophylaxis. Subjective ROS Limited/Unobtainable: No Constitutional: Reports: no symptoms HEENT: Repors: no symptoms Respiratory: Reports: no symptoms Allergies: Coded Allergies: HALOPERIDOL (Verified Allergy, Mild, [place] really bad, 07/05/16) Makes him irritable. THIORIDAZINE (Verified Allergy, Mild, [place] really bad, 07/05/16) Makes him violent TRAZODONE (Verified Allergy, Mild, [place] really bad, 07/05/16) Too strong; inability to move. Uncoded Allergies: PSYCHOTROPIC MEDICATION (Allergy, Mild, 08/13/14) Objective Last 24 Hour Vital Signs Date Time Temp Pulse Resp B/P (MAP) Pulse Ox O2 Delivery O2 Flow Rate FiO2 07/24/18 08:00 2.0 07/24/18 08:00 Bi-pap 07/24/18 07:50 97 Nasal Cannula 2.0 28 07/24/18 07:50 61 18 97 07/24/18 05:40 72 14 99 07/24/18 05:03 66 16 100 Facial 30 07/24/18 04:00 30 07/24/18 04:00 68 07/24/18 04:00 98.5 62 22 121/80 100 Bi-pap 30 07/24/18 04:00 Bi-pap 07/24/18 03:00 70 17 98 Facial 30 07/24/18 01:15 71 18 98 Facial 30 07/24/18 00:00 30 07/24/18 00:00 64 07/24/18 00:00 Nasal Cannula 2.0 07/24/18 00:00 98.6 71 22 133/80 99 Bi-pap 30 07/23/18 23:59 69 16 100 Facial 30 07/23/18 20:00 83 07/23/18 20:00 Nasal Cannula 2.0 07/23/18 20:00 2.0 07/23/18 20:00 98.8 82 22 134/68 99 Nasal Cannula 2.0 07/23/18 19:36 100 Nasal Cannula 2.0 28 07/23/18 16:00 97.7 70 22 130/73 100 Nasal Cannula 2.0 07/23/18 16:00 74 07/23/18 16:00 Nasal Cannula 2.0 07/23/18 16:00 2.0 07/23/18 12:00 69 07/23/18 12:00 2.0 07/23/18 12:00 Nasal Cannula 2.0 07/23/18 12:00 97.7 70 16 117/57 97 Nasal Cannula 2.0 Intake and Output 07/23/18 07/24/18 18:59 06:59 Intake Total 1248.757 ml 1328.452 ml Output Total 1150 ml 1200 ml Balance 98.757 ml 128.452 ml IV Total 1248.757 ml 1328.452 ml Output Urine Total 1150 ml 1200 ml # Bowel Movements 4 General Appearance: WD/WN HEENT: normocephalic, atraumatic Respiratory/Chest: chest wall non-tender, lungs clear Cardiovascular: normal rate, no gallop/murmur Abdomen: no organomegaly Genitourinary: normal external genitalia Skin: no rash, no ulcers Laboratory Tests 07/23/18 13:00: Activated Partial Thromboplast Time 58H 07/23/18 20:30: Activated Partial Thromboplast Time 113H 07/24/18 04:10: Activated Partial Thromboplast Time 122H, White Blood Count 4.0L, Red Blood Count 3.39L, Hemoglobin 9.9L, Hematocrit 29.7L, Mean Corpuscular Volume 88, Mean Corpuscular Hemoglobin 29.2, Mean Corpuscular Hemoglobin Concent 33.2, Red Cell Distribution Width 12.6, Platelet Count 190, Mean Platelet Volume 4.0L, Neutrophils (%) (Auto) 62.7, Lymphocytes (%) (Auto) 18.4L, Monocytes (%) (Auto) 14.9H, Eosinophils (%) (Auto) 3.3H, Basophils (%) (Auto) 0.7, Reticulocyte Count [Pending], Prothrombin Time 12.2H, Prothromb Time International Ratio 1.2H , Sodium Level 142, Potassium Level 3.2L, Chloride Level 109H, Carbon Dioxide Level 25, Anion Gap 8, Blood Urea Nitrogen 5L, Creatinine 0.7, Estimat Glomerular Filtration Rate , Glucose Level 99, Calcium Level 8.6, Iron Level 30L , Total Iron Binding Capacity 163L, Percent Iron Saturation 18, Unsaturated Iron Binding 133, Ferritin 67, Vitamin B12 Level 1511H, Folate 17.4, Thyroid Stimulating Hormone (TSH) 0.566, Free Thyroxine 1.07 Current Medications Medications (Trade) Dose Ordered Sig/Jesi Route PRN Reason Start Time Stop Time Status Last Admin Dose Admin Acetaminophen (Tylenol) 650 mg Q6H PRN NG FOR TEMP > 100 OR PAIN 1-07/21/18 19:45 08/19/18 19:44 Cefazolin Sodium 1 gm/Dextrose 55 ml @ 110 mls/hr Q8H IVPB 07/22/18 02:00 07/28/18 17:59 07/24/18 02:36 Chlorhexidine Gluconate (Candie-Hex 2%) 1 applic DAILY@2000 TOPIC 07/21/18 20:00 08/15/18 19:59 07/23/18 20:01 Dextrose (Dextrose 50%) 25 ml Q30M PRN IV Hypoglycemia 07/21/18 19:45 08/12/18 01:14 Dextrose (Dextrose 50%) 50 ml Q30M PRN IV Hypoglycemia 07/21/18 19:45 08/12/18 01:14 Dextrose/Sodium Chloride 1,000 ml @ 50 mls/hr Q20H IV 07/21/18 19:30 08/20/18 06:14 07/24/18 06:46 Famotidine (Pepcid I.v.) 20 mg Q12HR IVP 07/21/18 21:00 08/12/18 08:59 07/24/18 08:39 Heparin Sodium/ Dextrose 500 ml @ 30.844 mls/ hr ADJUST PER PROTOCOL IV 07/24/18 05:30 08/23/18 05:29 07/24/18 05:30 Insulin Aspart (NovoLOG) EVERY 6 HOURS SUBQ 07/22/18 00:00 08/12/18 12:29 Levetiracetam 100 ml @ 400 mls/hr Q12H IVPB 07/21/18 21:15 08/13/18 21:14 07/24/18 09:10 Levetiracetam 100 ml @ 400 mls/hr Q12HR IVPB 07/21/18 21:00 08/13/18 20:59 07/24/18 08:39 Morphine Sulfate (Morphine Sulfate) 4 mg Q4H PRN IVP For Pain 07/21/18 19:45 07/27/18 23:44 07/21/18 20:14 Potassium Chloride 100 ml @ 50 mls/hr ONCE ONCE IVPB 07/24/18 11:00 07/24/18 12:59 Valproate Sodium 1000 mg/Dextrose 65 ml @ 32.5 mls/hr Q12HR@0100,1300 IV 07/22/18 01:00 08/13/18 12:59 07/24/18 00:25 Maria E Shine MD Jul 24, 2018 10:17
--- NOTE | 2018-07-24 11:00 | NUR ---
NURSE NOTES: unable to insert NGT, Cornell Dill aware.
[2018-07-24 12:00] VITALS: BP 157/76
[2018-07-24] MEDS ORDERED: Heparin 5000 units/ml inj IV SCH (13:15)
--- NOTE | 2018-07-24 14:00 | NUR ---
NURSE NOTES: PTT 50, change Heparin drip to 24u/kg/h, continue monitoring.
--- NOTE | 2018-07-24 14:50 | Infectious Diseases Prog Note ---
Assessment/Plan Assessment/Plan 72 yo male with PMHx of TBI, Seizure disorder, COPD, Encephalopathy, DM, HTN, CVA, Renal failure, CAD and Dysphagia s/p Peg who was brought to the ED on with intractable seizures. Respiratory failure Most probably due to seizures Active PNA unlikely Sputum Cx 07/12/18 - NF Bacteriuria UTI unlikely UCx - Staph h. S/P 2 days Vancomycin DVT right leg On Heparin TBI Seizure disorder COPD Encephalopathy DM HTN CVA Renal failure CAD Dysphagia s/p Peg Extubated 07/19/18 PLAN - Continue Cefazolin #3 / 7 On D/C could switch to Augmentin 875 BID to finish the course 07/15/18 S/P Vancomycin and Zosyn #2 - Supportive care - Monitor CBC and Temps Subjective Allergies: Coded Allergies: HALOPERIDOL (Verified Allergy, Mild, [place] really bad, 07/05/16) Makes him irritable. THIORIDAZINE (Verified Allergy, Mild, [place] really bad, 07/05/16) Makes him violent TRAZODONE (Verified Allergy, Mild, [place] really bad, 07/05/16) Too strong; inability to move. Uncoded Allergies: PSYCHOTROPIC MEDICATION (Allergy, Mild, 08/13/14) Subjective Doing well on 2L O2 Afebrile No Leukocytosis Objective Vital Signs Last 24 Hour Vital Signs Date Time Temp Pulse Resp B/P (MAP) Pulse Ox O2 Delivery O2 Flow Rate FiO2 07/24/18 12:00 2.0 07/24/18 12:00 Bi-pap 07/24/18 12:00 97.2 72 20 157/76 99 Bi-pap 30 07/24/18 08:00 2.0 07/24/18 08:00 97.2 64 18 142/61 98 Bi-pap 30 07/24/18 08:00 Bi-pap 07/24/18 08:00 79 07/24/18 07:50 97 Nasal Cannula 2.0 28 07/24/18 07:50 61 18 97 07/24/18 05:40 72 14 99 07/24/18 05:03 66 16 100 Facial 30 07/24/18 04:00 30 07/24/18 04:00 68 07/24/18 04:00 98.5 62 22 121/80 100 Bi-pap 30 07/24/18 04:00 Bi-pap 07/24/18 03:00 70 17 98 Facial 30 07/24/18 01:15 71 18 98 Facial 30 07/24/18 00:00 30 07/24/18 00:00 64 07/24/18 00:00 Nasal Cannula 2.0 07/24/18 00:00 98.6 71 22 133/80 99 Bi-pap 30 07/23/18 23:59 69 16 100 Facial 30 07/23/18 20:00 83 07/23/18 20:00 Nasal Cannula 2.0 07/23/18 20:00 2.0 07/23/18 20:00 98.8 82 22 134/68 99 Nasal Cannula 2.0 07/23/18 19:36 100 Nasal Cannula 2.0 28 07/23/18 16:00 97.7 70 22 130/73 100 Nasal Cannula 2.0 07/23/18 16:00 74 07/23/18 16:00 Nasal Cannula 2.0 07/23/18 16:00 2.0 Height (Feet): 6 Weight (Pounds): 171 Objective Gen: NAD HEENT: DMM, PERRL LUNGS: CTAB, No W/C CARDS: RRR, S1, S2, ABD: Soft, ND SKIN: Warm/dry, No rashes Laboratory Tests Test 07/23/18 20:30 07/24/18 04:10 07/24/18 12:20 Activated Partial Thromboplast Time 113 SEC (23-33) H 122 SEC (23-33) H 50 SEC (23-33) H White Blood Count 4.0 K/UL (4.8-10.8) L Red Blood Count 3.39 M/UL (4.70-6.10) L Hemoglobin 9.9 G/DL (14.2-18.0) L Hematocrit 29.7 % (42.0-52.0) L Mean Corpuscular Volume 88 FL (80-99) Mean Corpuscular Hemoglobin 29.2 PG (27.0-31.0) Mean Corpuscular Hemoglobin Concent 33.2 G/DL (32.0-36.0) Red Cell Distribution Width 12.6 % (11.6-14.8) Platelet Count 190 K/UL (150-450) Mean Platelet Volume 4.0 FL (6.5-10.1) L Neutrophils (%) (Auto) 62.7 % (45.0-75.0) Lymphocytes (%) (Auto) 18.4 % (20.0-45.0) L Monocytes (%) (Auto) 14.9 % (1.0-10.0) H Eosinophils (%) (Auto) 3.3 % (0.0-3.0) H Basophils (%) (Auto) 0.7 % (0.0-2.0) Reticulocyte Count 3.3 % (0.5-2.0) H Prothrombin Time 12.2 SEC (9.30-11.50) H Prothromb Time International Ratio 1.2 (0.9-1.1) H Sodium Level 142 MMOL/L (136-145) Potassium Level 3.2 MMOL/L (3.5-5.1) L Chloride Level 109 MMOL/L (98-107) H Carbon Dioxide Level 25 MMOL/L (21-32) Anion Gap 8 mmol/L (5-15) Blood Urea Nitrogen 5 mg/dL (7-18) L Creatinine 0.7 MG/DL (0.55-1.30) Estimat Glomerular Filtration Rate mL/min (>60) Glucose Level 99 MG/DL (74-106) Calcium Level 8.6 MG/DL (8.5-10.1) Iron Level 30 ug/dL (50-175) L Total Iron Binding Capacity 163 ug/dL (250-450) L Percent Iron Saturation 18 % (15-50) Unsaturated Iron Binding 133 ug/dL (112-346) Ferritin 67 NG/ML (8-388) Vitamin B12 Level 1511 PG/ML (193-986) H Folate 17.4 NG/ML (8.6-58.9) Thyroid Stimulating Hormone (TSH) 0.566 uiU/mL (0.358-3.740) Free Thyroxine 1.07 NG/DL (0.76-1.46) Current Medications Medications (Trade) Dose Ordered Sig/Jesi Route PRN Reason Start Time Stop Time Status Last Admin Dose Admin Acetaminophen (Tylenol) 650 mg Q6H PRN NG FOR TEMP > 100 OR PAIN 1-6 07/21/18 19:45 08/19/18 19:44 Cefazolin Sodium 1 gm/Dextrose 55 ml @ 110 mls/hr Q8H IVPB 07/22/18 02:00 07/28/18 17:59 07/24/18 10:32 Chlorhexidine Gluconate (Candie-Hex 2%) 1 applic DAILY@2000 TOPIC 07/21/18 20:00 08/15/18 19:59 07/23/18 20:01 Dextrose (Dextrose 50%) 25 ml Q30M PRN IV Hypoglycemia 07/21/18 19:45 08/12/18 01:14 Dextrose (Dextrose 50%) 50 ml Q30M PRN IV Hypoglycemia 07/21/18 19:45 08/12/18 01:14 Dextrose/Sodium Chloride 1,000 ml @ 50 mls/hr Q20H IV 07/21/18 19:30 08/20/18 06:14 07/24/18 06:46 Famotidine (Pepcid I.v.) 20 mg Q12HR IVP 07/21/18 21:00 08/12/18 08:59 07/24/18 08:39 Heparin Sodium/ Dextrose 500 ml @ 37.013 mls/ hr ADJUST PER PROTOCOL IV 07/24/18 13:15 08/23/18 13:14 07/24/18 14:13 Insulin Aspart (NovoLOG) EVERY 6 HOURS SUBQ 07/22/18 00:00 08/12/18 12:29 Levetiracetam 100 ml @ 400 mls/hr Q12H IVPB 07/21/18 21:15 08/13/18 21:14 07/24/18 09:10 Levetiracetam 100 ml @ 400 mls/hr Q12HR IVPB 07/21/18 21:00 08/13/18 20:59 07/24/18 08:39 Morphine Sulfate (Morphine Sulfate) 4 mg Q4H PRN IVP For Pain 07/21/18 19:45 07/27/18 23:44 07/21/18 20:14 Valproate Sodium 1000 mg/Dextrose 65 ml @ 32.5 mls/hr Q12HR@0100,1300 IV 07/22/18 01:00 08/13/18 12:59 07/24/18 13:37 Matteo Hunt MD Jul 24, 2018 14:50
[2018-07-24 16:00] VITALS: BP 137/89
[2018-07-24] MEDS ORDERED: NS 275ml ONE (17:36)
[2018-07-24] MEDS ORDERED: Tubing IV Secondary IV ONE (17:36)
[2018-07-24] MEDS ORDERED: D5 1/2NS 1000ml IV ONE (17:36)
--- NOTE | 2018-07-24 18:44 | Internal Med Progress Note ---
Subjective Date of Service: Jul 24, 2018 Physician Name Michael Rojo Attending Physician Will Mejía MD Current Medications Medications (Trade) Dose Ordered Sig/Jesi Route PRN Reason Start Time Stop Time Status Last Admin Dose Admin Acetaminophen (Tylenol) 650 mg Q6H PRN NG FOR TEMP > 100 OR PAIN 1-07/21/18 19:45 08/19/18 19:44 Cefazolin Sodium 1 gm/Dextrose 55 ml @ 110 mls/hr Q8H IVPB 07/22/18 02:00 07/28/18 17:59 07/24/18 17:43 Chlorhexidine Gluconate (Candie-Hex 2%) 1 applic DAILY@2000 TOPIC 07/21/18 20:00 08/15/18 19:59 07/23/18 20:01 Dextrose (Dextrose 50%) 25 ml Q30M PRN IV Hypoglycemia 07/21/18 19:45 08/12/18 01:14 Dextrose (Dextrose 50%) 50 ml Q30M PRN IV Hypoglycemia 07/21/18 19:45 08/12/18 01:14 Dextrose/Sodium Chloride 1,000 ml @ 50 mls/hr Q20H IV 07/21/18 19:30 08/20/18 06:14 07/24/18 06:46 Famotidine (Pepcid I.v.) 20 mg Q12HR IVP 07/21/18 21:00 08/12/18 08:59 07/24/18 08:39 Heparin Sodium/ Dextrose 500 ml @ 37.013 mls/ hr ADJUST PER PROTOCOL IV 07/24/18 13:15 08/23/18 13:14 07/24/18 14:13 Insulin Aspart (NovoLOG) EVERY 6 HOURS SUBQ 07/22/18 00:00 08/12/18 12:29 Levetiracetam 100 ml @ 400 mls/hr Q12H IVPB 07/21/18 21:15 08/13/18 21:14 07/24/18 09:10 Levetiracetam 100 ml @ 400 mls/hr Q12HR IVPB 07/21/18 21:00 08/13/18 20:59 07/24/18 08:39 Morphine Sulfate (Morphine Sulfate) 4 mg Q4H PRN IVP For Pain 07/21/18 19:45 07/27/18 23:44 07/21/18 20:14 Valproate Sodium 1000 mg/Dextrose 65 ml @ 32.5 mls/hr Q12HR@0100,1300 IV 07/22/18 01:00 08/13/18 12:59 07/24/18 13:37 Allergies: Coded Allergies: HALOPERIDOL (Verified Allergy, Mild, [place] really bad, 07/05/16) Makes him irritable. THIORIDAZINE (Verified Allergy, Mild, [place] really bad, 07/05/16) Makes him violent TRAZODONE (Verified Allergy, Mild, [place] really bad, 07/05/16) Too strong; inability to move. Uncoded Allergies: PSYCHOTROPIC MEDICATION (Allergy, Mild, 08/13/14) ROS Limited/Unobtainable: Yes Subjective 72 YO M admitted with breakthrough seizure. Now respiratory failure. Extubated 07/19/18; now on BIPAP. Cover for Int Med-Dr Mejía. LUIS Objective Last Vital Signs Date Time Temp Pulse Resp B/P (MAP) Pulse Ox O2 Delivery O2 Flow Rate FiO2 07/24/18 16:00 Bi-pap 07/24/18 16:00 2.0 07/24/18 16:00 98.1 71 18 137/89 100 30 Laboratory Tests Test 07/23/18 20:30 07/24/18 04:10 07/24/18 12:20 Activated Partial Thromboplast Time 113 SEC (23-33) H 122 SEC (23-33) H 50 SEC (23-33) H White Blood Count 4.0 K/UL (4.8-10.8) L Red Blood Count 3.39 M/UL (4.70-6.10) L Hemoglobin 9.9 G/DL (14.2-18.0) L Hematocrit 29.7 % (42.0-52.0) L Mean Corpuscular Volume 88 FL (80-99) Mean Corpuscular Hemoglobin 29.2 PG (27.0-31.0) Mean Corpuscular Hemoglobin Concent 33.2 G/DL (32.0-36.0) Red Cell Distribution Width 12.6 % (11.6-14.8) Platelet Count 190 K/UL (150-450) Mean Platelet Volume 4.0 FL (6.5-10.1) L Neutrophils (%) (Auto) 62.7 % (45.0-75.0) Lymphocytes (%) (Auto) 18.4 % (20.0-45.0) L Monocytes (%) (Auto) 14.9 % (1.0-10.0) H Eosinophils (%) (Auto) 3.3 % (0.0-3.0) H Basophils (%) (Auto) 0.7 % (0.0-2.0) Reticulocyte Count 3.3 % (0.5-2.0) H Prothrombin Time 12.2 SEC (9.30-11.50) H Prothromb Time International Ratio 1.2 (0.9-1.1) H Sodium Level 142 MMOL/L (136-145) Potassium Level 3.2 MMOL/L (3.5-5.1) L Chloride Level 109 MMOL/L (98-107) H Carbon Dioxide Level 25 MMOL/L (21-32) Anion Gap 8 mmol/L (5-15) Blood Urea Nitrogen 5 mg/dL (7-18) L Creatinine 0.7 MG/DL (0.55-1.30) Estimat Glomerular Filtration Rate mL/min (>60) Glucose Level 99 MG/DL (74-106) Calcium Level 8.6 MG/DL (8.5-10.1) Iron Level 30 ug/dL (50-175) L Total Iron Binding Capacity 163 ug/dL (250-450) L Percent Iron Saturation 18 % (15-50) Unsaturated Iron Binding 133 ug/dL (112-346) Ferritin 67 NG/ML (8-388) Vitamin B12 Level 1511 PG/ML (193-986) H Folate 17.4 NG/ML (8.6-58.9) Thyroid Stimulating Hormone (TSH) 0.566 uiU/mL (0.358-3.740) Free Thyroxine 1.07 NG/DL (0.76-1.46) Intake and Output 07/23/18 07/24/18 19:00 07:00 Intake Total 1310.555 ml 1226.198 ml Output Total 1150 ml 1200 ml Balance 160.555 ml 26.198 ml IV Total 1310.555 ml 1226.198 ml Output Urine Total 1150 ml 1200 ml # Bowel Movements 4 Objective PHYSICAL EXAMINATION: GENERAL: The patient is a thin-appearing male, in no apparent distress. HEENT: Eyes, pupils are equal and responsive to light and accommodation. Extraocular movements are intact. NECK: Supple. No lymphadenopathy. CHEST: BIPAP; Few expiratory wheezes bilaterally. Otherwise, without crackles or rales. CARDIOVASCULAR: Tachycardic, regular rate. S1 and S2 are normal without murmurs, rubs, or gallops. ABDOMEN: Soft, nontender, and nondistended. Positive bowel sounds. No evidence of hepatosplenomegaly. Currently, no rebound or guarding noted. EXTREMITIES: Negative for clubbing, cyanosis, or edema. RECTAL/GENITAL: Not performed. NEUROLOGICALLY: Unable to assess secondary to the patient's mental status. Assessment/Plan Assessment/Plan ASSESSMENT: This is a 72-year-old male. 1. Intractable seizures. 2. Respiratory failure. 3. Probable pneumonia of the right upper lobe. 4. History of seizure disorder. 5. Chronic obstructive pulmonary disease. 6. Diabetes type 2. 7. Hypertension. 8. Metabolic encephalopathy. 9. Chronic obstructive pulmonary disease. 10. Chronic renal failure. 11. Traumatic brain injury. 12. Gastroesophageal reflux disease. 13. Coronary artery disease. 14. Anemia. 15. History of gastrointestinal hemorrhage. 16. Hypercholesteremia. 17. Cerebrovascular disease, status post cerebrovascular accident. 18. Dysphagia. 19. Prostate cancer with mets 20. UTI=staph haemolyticus TREATMENT: 1. Intractable seizure. A Neurology consultation has been obtained. The patient has been started on Ativan intravenously. We will follow recommendations of Neurology. Continue Keppra, Dilantin, and Depakote as above. 2. Respiratory failure. Pulmonary consultation has been obtained with Dr. Maria E Shine. The patient is S/P extubation 07/19/18 now on BIPAP We will follow recommendations of Pulmonary. 3. Chronic obstructive pulmonary disease. As above, a Pulmonary consultation has been obtained with Dr. Maria E Shine. 4. Diabetes type 2. The patient has been placed on a NovoLog sliding scale. 5. Hypertension. The patient is currently hypotensive. 6. Metabolic encephalopathy. 7. Renal failure. 8. Traumatic brain injury. 9. Gastroesophageal reflux disease. 10. Coronary artery disease. 11. Anemia. 12. Gastrointestinal hemorrhage. 13. Hypercholesterolemia. 14. Cerebrovascular disease. 15. Dysphagia, status post PEG placement. 16. D/C vanco for staph UTI; D/C zosyn for peumonia-await urine and sputum cultures per ID 17. ID consult=Michael Land MD Jul 24, 2018 18:44
--- NOTE | 2018-07-24 19:13 | NUR ---
HAND-OFF: Report given to CARLOS TAMAYO.
--- NOTE | 2018-07-24 19:14 | NUR ---
NURSE NOTES: Received report from Ariane Waggoner RN. Patient seen in bed in semi echevarria position. On oxygen 2 L/min via N/C. Sp02 is 97%. Alert, verbally responsive, able to make needs known. Confused at time. Denies pain. PICC line noted to left upper arm. ON IVF of D5 1/2 NS at 50CC/hr. noted soft wrist restraint. no redness or irritation noted to bilateral wrist area. Bed is in lowest position. Call light is within easy reach while in bed. Will continue to monitor.
[2018-07-24 20:00] VITALS: BP 126/60
[2018-07-24] MEDS: Dyna-Hex 2% Top Sol 2oz TOPIC SCH (20:06)
--- NOTE | 2018-07-24 21:55 | NUR ---
NURSE NOTES: Received PTT result. >150H. previous was 50. Attempted to confirm the site of the blood draw but the tech has left home already. Due to the significant difference in the result, redraw will be performed. Heparin will be held at this time until new result is available.
--- NOTE | 2018-07-24 22:20 | NUR ---
NURSE NOTES: Received call from pharmacist. Per pharmacist, will just follow facility heparin protocol due to patient having PICC line. The result will remain the same if it was the same arm from the PICC line or opposite. Heparin drip will be continue to be held until 2300. a new dose will be started at 2300 ( 20U/kg/hr ).
--- NOTE | 2018-07-24 23:58 | Neurology Progress Note ---
Interim History Interim History ROS Limited/Unobtainable: Yes Complaints: AMS Events: NG tube insertion failed/ back on BIPAP Interim History This visit was performed on July 24, [address] Abad Iniguez. Review of Systems Neuro Review of Systems Unchanged neuro exam but more lethargic on exam today. Remains confused, poor memory and non focal. All Systems: reviewed and negative except above Objective Physical Exam Last Vital Signs Date Time Temp Pulse Resp B/P (MAP) Pulse Ox O2 Delivery O2 Flow Rate FiO2 07/24/18 23:12 65 16 99 Facial 30 07/24/18 20:00 96.4 126/60 2.0 Laboratory Tests Test 07/24/18 04:10 07/24/18 12:20 07/24/18 20:35 White Blood Count 4.0 K/UL (4.8-10.8) L Red Blood Count 3.39 M/UL (4.70-6.10) L Hemoglobin 9.9 G/DL (14.2-18.0) L Hematocrit 29.7 % (42.0-52.0) L Mean Corpuscular Volume 88 FL (80-99) Mean Corpuscular Hemoglobin 29.2 PG (27.0-31.0) Mean Corpuscular Hemoglobin Concent 33.2 G/DL (32.0-36.0) Red Cell Distribution Width 12.6 % (11.6-14.8) Platelet Count 190 K/UL (150-450) Mean Platelet Volume 4.0 FL (6.5-10.1) L Neutrophils (%) (Auto) 62.7 % (45.0-75.0) Lymphocytes (%) (Auto) 18.4 % (20.0-45.0) L Monocytes (%) (Auto) 14.9 % (1.0-10.0) H Eosinophils (%) (Auto) 3.3 % (0.0-3.0) H Basophils (%) (Auto) 0.7 % (0.0-2.0) Reticulocyte Count 3.3 % (0.5-2.0) H Prothrombin Time 12.2 SEC (9.30-11.50) H Prothromb Time International Ratio 1.2 (0.9-1.1) H Activated Partial Thromboplast Time 122 SEC (23-33) H 50 SEC (23-33) H > 150 SEC (23-33) *H Sodium Level 142 MMOL/L (136-145) Potassium Level 3.2 MMOL/L (3.5-5.1) L Chloride Level 109 MMOL/L (98-107) H Carbon Dioxide Level 25 MMOL/L (21-32) Anion Gap 8 mmol/L (5-15) Blood Urea Nitrogen 5 mg/dL (7-18) L Creatinine 0.7 MG/DL (0.55-1.30) Estimat Glomerular Filtration Rate mL/min (>60) Glucose Level 99 MG/DL (74-106) Calcium Level 8.6 MG/DL (8.5-10.1) Iron Level 30 ug/dL (50-175) L Total Iron Binding Capacity 163 ug/dL (250-450) L Percent Iron Saturation 18 % (15-50) Unsaturated Iron Binding 133 ug/dL (112-346) Ferritin 67 NG/ML (8-388) Vitamin B12 Level 1511 PG/ML (193-986) H Folate 17.4 NG/ML (8.6-58.9) Thyroid Stimulating Hormone (TSH) 0.566 uiU/mL (0.358-3.740) Free Thyroxine 1.07 NG/DL (0.76-1.46) General: well developed, well nourished Head: normocophalic Neck: no rigidity EENT: benign Neurologic Exam Mental Status: awake, alert, other Speech: other Language: other Cranial Nerve II: fundus normal, visual dodd, no papilledema Cranial Nerves III, IV, : PERRLA, EOMI Cranial Nerve V: normal facial sensations, temporales function normal, masseters function normal, pterygoids function normal, other Cranial Nerve VII: no facial asymmetry, normal facial expressions Cranial Nerve VIII: normal hearing, no nystagmus Cranial Nerve IX: normal palate elevation, gag response Cranial Nerve XI: SCM symmetric, other Cranial Nerve XII: tongue midline, no tongue atrophy/fasciculations, other Motor System: normal muscle tone, strength 5/5, no involuntary movement, no muscle wasting Sensory: normal pinprick, normal light touch, other Coordination: other Deep Tendon Reflexes: 1+ bicep (L), 1+ bicep (R), 1+ tricep (L), 1+ tricep (R) , 1+ brachioradialis (L), 1+ brachioradialis (R), 1+ knee (L), 1+ knee (R), 1+ ankle (L), 1+ ankle (R) Reflexes: flexor plantar (L), flexor plantar (R); extensor plantar (L), extensor plantar (R) Stance: normal Objective Extubated with eyes open, tracking with eyes- he He is KAT x 4 and some to command with full strength- Pupils are briskly reactive and PERRL - His exam is non focal Has BIPAP mask on now Impression/Recommendations Problems: (1) Acute metabolic encephalopathy (2) Acute encephalopathy (3) Drug abuse (4) COPD (chronic obstructive pulmonary disease) (5) Diabetes mellitus (6) Anemia (7) Acute respiratory failure (8) Seizure disorder (9) UTI (urinary tract infection) (10) Prostate cancer, primary, 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 site (11) Iron deficiency anemia (12) Acute renal failure (ARF) Status: unchanged Recommendations Continue AEDs- doses stable at this time. Keppra 1500mg BID Valproate 1000mg BID Monitor LFTs intermittently. Q4 hr neuro obs Maintain normoglycemia with ISS Maintain normothermia Optimize oxygenation PT Intense Chest physiotherapy? Follow up causes of anemia- IRON Replete/ Replace lytes as needed: Potassium/ Magnesium etc Kenia Pompa N.P. Jul 24, 2018 23:58
[2018-07-25] VITALS: BP 156/78
[2018-07-25] MEDS: Valproate Sodium INJ 1,000 MG in D5W 55 ML IV SCH ×2 (00:09→13:00)
[2018-07-25] MEDS: ceFAZolin sod 1 GM in D5W 55 ML IVPB SCH ×3 (02:17→17:41)
[2018-07-25] MEDS: D5 1/2NS 1,000 ML IV SCH ×2 (02:18→22:57)
[2018-07-25 04:00] VITALS: BP 126/74
[2018-07-25] MEDS: NovoLOG Insulin Flexpen SUBQ SCH ×3 (05:34→18:00)
[2018-07-25 06:13] LABS: BASOPHILS % (AUTO) 0.6 % (0.0-2.0); EOSINOPHILS % (AUTO) 3.3 % (0.0-3.0); HEMATOCRIT 34.1 % (42.0-52.0); HEMOGLOBIN 11.2 G/DL (14.2-18.0); LYMPHOCYTES % (AUTO) 22.2 % (20.0-45.0); MEAN CORPUSCULAR VOLUME 89 FL (80-99); NEUTROPHILS % (AUTO) 54.9 % (45.0-75.0); PLATELET COUNT 213 K/UL (150-450); RED BLOOD COUNT 3.83 M/UL (4.70-6.10); RED CELL DISTRIBUTION WIDTH 13.1 % (11.6-14.8); WHITE BLOOD COUNT 4.7 K/UL (4.8-10.8)
[2018-07-25 06:31] LABS: ANION GAP 7 mmol/L (5-15); BLOOD UREA NITROGEN 4 mg/dL (7-18); CALCIUM 8.8 MG/DL (8.5-10.1); CARBON DIOXIDE 25 MMOL/L (21-32); CHLORIDE 109 MMOL/L (98-107); CREATININE 0.8 MG/DL (0.55-1.30); PHOSPHORUS 3.4 MG/DL (2.5-4.9); POTASSIUM 3.8 MMOL/L (3.5-5.1); SODIUM 141 MMOL/L (136-145)
--- NOTE | 2018-07-25 06:31 | NUR ---
NURSE NOTES: PTT result is pending at this time.
--- NOTE | 2018-07-25 06:46 | NUR ---
NURSE NOTES: Spoke to Indira from [facility]. PTT result made aware and heparin drip will be decreased to 18u/kg/hr. next PTT is at 1300
[2018-07-25] MEDS: Heparin 25,000u/D5W 500ml 500 ML IV SCH ×2 (06:54→18:04)
--- NOTE | 2018-07-25 07:09 | NUR ---
NURSE NOTES: Received patient from Vikki TAMAYO. Patient is asleep and is currently on Bipap settings 12/5 FIO2 at 35%. Restraints are on, skin intact, circulation not affected. Sims catheter is patent and draining. IV site is Left arm PICC Double Lumen receiving heparin drip at 18u/kg/hr and D5 1/2 NS at 50cc/hr. Bed is locked, placed in lowest positions, bed alarm on, side rails up x3, call light within reach. Will continue to monitor.
--- NOTE | 2018-07-25 07:09 | NUR ---
HAND-OFF: Report given to RONI Arriola.
--- NOTE | 2018-07-25 07:13 | NUR ---
RESPIRATORY NOTE: removed pt off bipap and placed on 2L NC. pt in no apparent resp distress at this time. current spo2 100%. bipap is plugged into the red outlet with alarms audible. RN in room when placed on NC. will cont to monitor.
--- NOTE | 2018-07-25 07:22 | Anethesia Preoperative Eval ---
Anesthesia Pre-op PMH/ROS General Date of Evaluation: Jul 25, 2018 Time of Evaluation: 07:22 Mallampati Score Class I : Soft palate, uvula, fauces, pillars visible Class II: Soft palate, uvula, fauces visible Class III: Soft palate, base of uvula visible Class IV: Only hard plate visible Mallampati Classification: Class II Allergies: Coded Allergies: HALOPERIDOL (Verified Allergy, Mild, [place] really bad, 07/05/16) Makes him irritable. THIORIDAZINE (Verified Allergy, Mild, [place] really bad, 07/05/16) Makes him violent TRAZODONE (Verified Allergy, Mild, [place] really bad, 07/05/16) Too strong; inability to move. Uncoded Allergies: PSYCHOTROPIC MEDICATION (Allergy, Mild, 08/13/14) Anesthesia Pre-op Phys. Exam Physician Exam Last Vital Signs Date Time Temp Pulse Resp B/P (MAP) Pulse Ox O2 Delivery O2 Flow Rate FiO2 07/25/18 07:13 100 Nasal Cannula 2.0 28 07/25/18 05:20 61 16 07/25/18 04:00 98.8 126/74 Anesthesia Pre-op A/P Labs Hematology Test 07/25/18 05:54 White Blood Count 4.7 K/UL (4.8-10.8) L Red Blood Count 3.83 M/UL (4.70-6.10) L Hemoglobin 11.2 G/DL (14.2-18.0) L Hematocrit 34.1 % (42.0-52.0) L Mean Corpuscular Volume 89 FL (80-99) Mean Corpuscular Hemoglobin 29.2 PG (27.0-31.0) Mean Corpuscular Hemoglobin Concent 32.8 G/DL (32.0-36.0) Red Cell Distribution Width 13.1 % (11.6-14.8) Platelet Count 213 K/UL (150-450) Mean Platelet Volume 4.5 FL (6.5-10.1) L Neutrophils (%) (Auto) 54.9 % (45.0-75.0) Lymphocytes (%) (Auto) 22.2 % (20.0-45.0) Monocytes (%) (Auto) 19.0 % (1.0-10.0) H Eosinophils (%) (Auto) 3.3 % (0.0-3.0) H Basophils (%) (Auto) 0.6 % (0.0-2.0) Coagulation Test 07/24/18 12:20 07/24/18 20:35 07/25/18 05:54 Activated Partial Thromboplast Time 50 SEC (23-33) H > 150 SEC (23-33) *H 96 SEC (23-33) H Chemistry Test 07/25/18 05:54 Sodium Level 141 MMOL/L (136-145) Potassium Level 3.8 MMOL/L (3.5-5.1) Chloride Level 109 MMOL/L (98-107) H Carbon Dioxide Level 25 MMOL/L (21-32) Anion Gap 7 mmol/L (5-15) Blood Urea Nitrogen 4 mg/dL (7-18) L Creatinine 0.8 MG/DL (0.55-1.30) Estimat Glomerular Filtration Rate mL/min (>60) Glucose Level 88 MG/DL (74-106) Calcium Level 8.8 MG/DL (8.5-10.1) Phosphorus Level 3.4 MG/DL (2.5-4.9) Magnesium Level 1.5 MG/DL (1.8-2.4) L Risk Assessment & Plan Assessment: [email or web address] Plan: Magdalena Lee MD Jul 25, 2018 07:22
[2018-07-25] MEDS ORDERED: Midazolam 2mg/2ml Inj IVP PRN (07:30)
[2018-07-25] MEDS ORDERED: DiphenhydrAMINE 50mg/ml Inj IVP PRN (07:30)
[2018-07-25] MEDS ORDERED: Atropine Inj 1mg/10ml Syr IV PRN (07:30)
[2018-07-25] MEDS ORDERED: fentaNYL 100 mcg/2 mL IV PRN (07:30)
[2018-07-25 08:00] VITALS: BP 108/72
--- NOTE | 2018-07-25 09:35 | General Progress Note ---
Assessment/Plan Problem List: (1) Iron deficiency anemia ICD Codes: D50.9 - Iron deficiency anemia SNOMED: 73690549 (2) Prostate cancer, primary, 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 site ICD Codes: C61 - Prostate cancer, primary, 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 site SNOMED: 665931803 (3) Seizure disorder ICD Codes: G40.909 - Epilepsy, unspecified, not intractable, without status epilepticus SNOMED: 008220018 (4) Anemia ICD Codes: D64.9 - Anemia, unspecified SNOMED: 695606229 (5) Diabetes mellitus ICD Codes: E11.9 - Type 2 diabetes mellitus without complications SNOMED: 49645677 (6) Acute encephalopathy ICD Codes: G93.40 - Encephalopathy, unspecified SNOMED: 7155216 (7) Severe malnutrition ICD Codes: E43 - Unspecified severe protein-calorie malnutrition SNOMED: 56655300 Status: unchanged Assessment/Plan: needs PEG unable to reach family for consent will consult social security specialist NGT for now wile pending peg Subjective ROS Limited/Unobtainable: No Allergies: Coded Allergies: HALOPERIDOL (Verified Allergy, Mild, [place] really bad, 07/05/16) Makes him irritable. THIORIDAZINE (Verified Allergy, Mild, [place] really bad, 07/05/16) Makes him violent TRAZODONE (Verified Allergy, Mild, [place] really bad, 07/05/16) Too strong; inability to move. Uncoded Allergies: PSYCHOTROPIC MEDICATION (Allergy, Mild, 08/13/14) Objective Last 24 Hour Vital Signs Date Time Temp Pulse Resp B/P (MAP) Pulse Ox O2 Delivery O2 Flow Rate FiO2 07/25/18 07:13 100 Nasal Cannula 2.0 28 07/25/18 05:20 61 16 100 Facial 30 07/25/18 04:00 98.8 85 18 126/74 100 Bi-pap 30 07/25/18 04:00 Bi-pap 07/25/18 04:00 30 07/25/18 03:20 64 07/25/18 02:52 65 19 100 Facial 30 07/25/18 02:50 67 19 100 Bi-pap 30 07/25/18 01:06 64 16 100 Facial 30 07/25/18 00:00 97.3 73 21 156/78 97 Bi-pap 30 07/25/18 00:00 Bi-pap 07/25/18 00:00 30 07/24/18 23:28 71 07/24/18 23:12 65 16 99 Facial 30 07/24/18 20:00 96.4 80 20 126/60 100 Nasal Cannula 2.0 07/24/18 20:00 Nasal Cannula 2.0 07/24/18 20:00 2.0 07/24/18 19:43 99 Nasal Cannula 2.0 28 07/24/18 19:07 69 07/24/18 16:00 Bi-pap 07/24/18 16:00 2.0 07/24/18 16:00 98.1 71 18 137/89 100 Bi-pap 30 07/24/18 16:00 67 07/24/18 12:00 63 07/24/18 12:00 2.0 07/24/18 12:00 Bi-pap 07/24/18 12:00 97.2 72 20 157/76 99 Bi-pap 30 Intake and Output 07/24/18 07/25/18 19:00 07:00 Intake Total 1314.285 ml 1075.61139 ml Output Total 1500 ml 1350 ml Balance -185.715 ml -274.73925 ml IV Total 1314.285 ml 1075.47996 ml Output Urine Total 1500 ml 1350 ml # Bowel Movements 1 2 Laboratory Tests 07/24/18 12:20: Activated Partial Thromboplast Time 50H 07/24/18 20:35: Activated Partial Thromboplast Time > 150*H 07/25/18 05:54: Activated Partial Thromboplast Time 96H, White Blood Count 4.7L, Red Blood Count 3.83L, Hemoglobin 11.2L, Hematocrit 34.1L, Mean Corpuscular Volume 89, Mean Corpuscular Hemoglobin 29.2, Mean Corpuscular Hemoglobin Concent 32.8, Red Cell Distribution Width 13.1, Platelet Count 213, Mean Platelet Volume 4.5L, Neutrophils (%) (Auto) 54.9, Lymphocytes (%) (Auto) 22.2, Monocytes (%) (Auto) 19.0H, Eosinophils (%) (Auto) 3.3H, Basophils (%) (Auto) 0.6, Sodium Level 141, Potassium Level 3.8, Chloride Level 109H, Carbon Dioxide Level 25, Anion Gap 7, Blood Urea Nitrogen 4L, Creatinine 0.8, Estimat Glomerular Filtration Rate , Glucose Level 88, Calcium Level 8.8, Phosphorus Level 3.4, Magnesium Level 1.5L Height (Feet): 6 Weight (Pounds): 175 General Appearance: no apparent distress EENT: normal ENT inspection Neck: supple Cardiovascular: normal rate Respiratory/Chest: decreased breath sounds Abdomen: normal bowel sounds, non tender, soft Extremities: non-tender Mu Rubin MD Jul 25, 2018 09:35
[2018-07-25] MEDS: levETIRAcetam 1,000mg/NS100ml 100 ML IVPB SCH ×2 (09:55→20:19)
[2018-07-25] MEDS: levETIRAcetam 500mg/NS100ml 100 ML IVPB SCH ×2 (09:55→21:13)
--- NOTE | 2018-07-25 10:22 | NUR ---
ST NOTE: FOLLOWED UP PT'S CONDITIONS. DISCUSSED WITH RNANISA RE:PT'S CONDITIONS. PER RN, UNABLE TO REACH PT'S TO GET CONSENT FOR PEG PLACEMENT. PER MD'S NOTE, WILL CONSULT WITH SOCIAL SERVICE. PLEASE SEE FULL MODIFIED BARIUM SWALLOW STUDY FOR DETAILS. D/W THE STAFF.
--- NOTE | 2018-07-25 10:45 | Pulmonology Progress Note ---
Assessment/Plan Problems: (1) Acute respiratory failure (2) Acute metabolic encephalopathy (3) COPD (chronic obstructive pulmonary disease) (4) Acute renal failure (ARF) (5) Lumbar spondylosis (6) posttraumatic seizure disorder (7) Diabetes mellitus (8) Anemia (9) Chronic low back pain (10) Seizure disorder Assessment/Plan doing better failed swallow study, will need PEG [place] will be tried by GI on Nasal Canula now respiratory treatment check electrolytes swallow study sliding scale diabetic diet symptomatic treatment dvt prophylaxis. Subjective ROS Limited/Unobtainable: No Interval Events: awake, confused Allergies: Coded Allergies: HALOPERIDOL (Verified Allergy, Mild, [place] really bad, 07/05/16) Makes him irritable. THIORIDAZINE (Verified Allergy, Mild, [place] really bad, 07/05/16) Makes him violent TRAZODONE (Verified Allergy, Mild, [place] really bad, 07/05/16) Too strong; inability to move. Uncoded Allergies: PSYCHOTROPIC MEDICATION (Allergy, Mild, 08/13/14) Objective Last 24 Hour Vital Signs Date Time Temp Pulse Resp B/P (MAP) Pulse Ox O2 Delivery O2 Flow Rate FiO2 07/25/18 08:00 2.0 07/25/18 08:00 97.8 62 13 108/72 100 Nasal Cannula 2.0 07/25/18 08:00 Nasal Cannula 2.0 07/25/18 07:53 68 07/25/18 07:13 100 Nasal Cannula 2.0 28 07/25/18 05:20 61 16 100 Facial 30 07/25/18 04:00 98.8 85 18 126/74 100 Bi-pap 30 07/25/18 04:00 Bi-pap 07/25/18 04:00 30 07/25/18 03:20 64 07/25/18 02:52 65 19 100 Facial 30 07/25/18 02:50 67 19 100 Bi-pap 30 07/25/18 01:06 64 16 100 Facial 30 07/25/18 00:00 97.3 73 21 156/78 97 Bi-pap 30 07/25/18 00:00 Bi-pap 07/25/18 00:00 30 07/24/18 23:28 71 07/24/18 23:12 65 16 99 Facial 30 07/24/18 20:00 96.4 80 20 126/60 100 Nasal Cannula 2.0 07/24/18 20:00 Nasal Cannula 2.0 07/24/18 20:00 2.0 07/24/18 19:43 99 Nasal Cannula 2.0 28 07/24/18 19:07 69 07/24/18 16:00 Bi-pap 07/24/18 16:00 2.0 07/24/18 16:00 98.1 71 18 137/89 100 Bi-pap 30 07/24/18 16:00 67 07/24/18 12:00 63 07/24/18 12:00 2.0 07/24/18 12:00 Bi-pap 07/24/18 12:00 97.2 72 20 157/76 99 Bi-pap 30 Intake and Output 07/24/18 07/25/18 19:00 07:00 Intake Total 1314.285 ml 1075.57125 ml Output Total 1500 ml 1350 ml Balance -185.715 ml -274.33783 ml IV Total 1314.285 ml 1075.01224 ml Output Urine Total 1500 ml 1350 ml # Bowel Movements 1 2 General Appearance: WD/WN HEENT: normocephalic, anicteric Respiratory/Chest: chest wall non-tender, lungs clear Cardiovascular: normal peripheral pulses, regular rhythm Abdomen: normal bowel sounds, no organomegaly Genitourinary: normal external genitalia Skin: no rash Laboratory Tests 07/24/18 12:20: Activated Partial Thromboplast Time 50H 07/24/18 20:35: Activated Partial Thromboplast Time > 150*H 07/25/18 05:54: Activated Partial Thromboplast Time 96H, White Blood Count 4.7L, Red Blood Count 3.83L, Hemoglobin 11.2L, Hematocrit 34.1L, Mean Corpuscular Volume 89, Mean Corpuscular Hemoglobin 29.2, Mean Corpuscular Hemoglobin Concent 32.8, Red Cell Distribution Width 13.1, Platelet Count 213, Mean Platelet Volume 4.5L, Neutrophils (%) (Auto) 54.9, Lymphocytes (%) (Auto) 22.2, Monocytes (%) (Auto) 19.0H, Eosinophils (%) (Auto) 3.3H, Basophils (%) (Auto) 0.6, Sodium Level 141, Potassium Level 3.8, Chloride Level 109H, Carbon Dioxide Level 25, Anion Gap 7, Blood Urea Nitrogen 4L, Creatinine 0.8, Estimat Glomerular Filtration Rate , Glucose Level 88, Calcium Level 8.8, Phosphorus Level 3.4, Magnesium Level 1.5L Current Medications Medications (Trade) Dose Ordered Sig/Jesi Route PRN Reason Start Time Stop Time Status Last Admin Dose Admin Acetaminophen (Tylenol) 650 mg Q6H PRN NG FOR TEMP > 100 OR PAIN 1-6 07/21/18 19:45 08/19/18 19:44 Cefazolin Sodium 1 gm/Dextrose 55 ml @ 110 mls/hr Q8H IVPB 07/22/18 02:00 07/28/18 17:59 07/25/18 10:18 Chlorhexidine Gluconate (Candie-Hex 2%) 1 applic DAILY@2000 TOPIC 07/21/18 20:00 08/15/18 19:59 07/24/18 20:06 Dextrose (Dextrose 50%) 25 ml Q30M PRN IV Hypoglycemia 07/21/18 19:45 08/12/18 01:14 Dextrose (Dextrose 50%) 50 ml Q30M PRN IV Hypoglycemia 07/21/18 19:45 08/12/18 01:14 Dextrose/Sodium Chloride 1,000 ml @ 50 mls/hr Q20H IV 07/21/18 19:30 08/20/18 06:14 07/25/18 02:18 Famotidine (Pepcid I.v.) 20 mg Q12HR IVP 07/21/18 21:00 08/12/18 08:59 07/25/18 09:55 Heparin Sodium/ Dextrose 500 ml @ 27.76 mls/ hr ADJUST PER PROTOCOL IV 07/25/18 07:00 08/24/18 06:59 07/25/18 06:54 Insulin Aspart (NovoLOG) EVERY 6 HOURS SUBQ 07/22/18 00:00 08/12/18 12:29 Levetiracetam 100 ml @ 400 mls/hr Q12H IVPB 07/21/18 21:15 08/13/18 21:14 07/25/18 09:55 Levetiracetam 100 ml @ 400 mls/hr Q12HR IVPB 07/21/18 21:00 08/13/18 20:59 07/25/18 09:55 Magnesium Sulfate 100 ml @ 100 mls/hr ONCE ONCE IVPB 07/25/18 09:45 07/25/18 10:44 07/25/18 10:19 Morphine Sulfate (Morphine Sulfate) 4 mg Q4H PRN IVP For Pain 07/21/18 19:45 07/27/18 23:44 07/21/18 20:14 Valproate Sodium 1000 mg/Dextrose 65 ml @ 32.5 mls/hr Q12HR@0100,1300 IV 07/22/18 01:00 08/13/18 12:59 07/25/18 00:09 Maria E Shine MD Jul 25, 2018 10:45
--- NOTE | 2018-07-25 11:50 | Infectious Diseases Prog Note ---
Assessment/Plan Assessment/Plan 72 yo male with PMHx of TBI, Seizure disorder, COPD, Encephalopathy, DM, HTN, CVA, Renal failure, CAD and Dysphagia s/p Peg who was brought to the ED on with intractable seizures. Respiratory failure Most probably due to seizures Active PNA unlikely Sputum Cx 07/12/18 - NF Bacteriuria UTI unlikely UCx - Staph h. S/P 2 days Vancomycin DVT right leg On Heparin TBI Seizure disorder COPD Encephalopathy DM HTN CVA Renal failure CAD Dysphagia s/p Peg Extubated 07/19/18 PLAN - Continue Cefazolin #4 / 7 On D/C could switch to Augmentin 875 BID to finish the course 07/15/18 S/P Vancomycin and Zosyn #2 - Supportive care - Monitor CBC and Temps Subjective Allergies: Coded Allergies: HALOPERIDOL (Verified Allergy, Mild, [place] really bad, 07/05/16) Makes him irritable. THIORIDAZINE (Verified Allergy, Mild, [place] really bad, 07/05/16) Makes him violent TRAZODONE (Verified Allergy, Mild, [place] really bad, 07/05/16) Too strong; inability to move. Uncoded Allergies: PSYCHOTROPIC MEDICATION (Allergy, Mild, 08/13/14) Subjective MARIANA Afebrile No Leukocytosis Objective Vital Signs Last 24 Hour Vital Signs Date Time Temp Pulse Resp B/P (MAP) Pulse Ox O2 Delivery O2 Flow Rate FiO2 07/25/18 08:00 2.0 07/25/18 08:00 97.8 62 13 108/72 100 Nasal Cannula 2.0 07/25/18 08:00 Nasal Cannula 2.0 07/25/18 07:53 68 07/25/18 07:13 100 Nasal Cannula 2.0 28 07/25/18 05:20 61 16 100 Facial 30 07/25/18 04:00 98.8 85 18 126/74 100 Bi-pap 30 07/25/18 04:00 Bi-pap 07/25/18 04:00 30 07/25/18 03:20 64 07/25/18 02:52 65 19 100 Facial 30 07/25/18 02:50 67 19 100 Bi-pap 30 07/25/18 01:06 64 16 100 Facial 30 07/25/18 00:00 97.3 73 21 156/78 97 Bi-pap 30 07/25/18 00:00 Bi-pap 07/25/18 00:00 30 07/24/18 23:28 71 07/24/18 23:12 65 16 99 Facial 30 07/24/18 20:00 96.4 80 20 126/60 100 Nasal Cannula 2.0 07/24/18 20:00 Nasal Cannula 2.0 07/24/18 20:00 2.0 07/24/18 19:43 99 Nasal Cannula 2.0 28 07/24/18 19:07 69 07/24/18 16:00 Bi-pap 07/24/18 16:00 2.0 07/24/18 16:00 98.1 71 18 137/89 100 Bi-pap 30 07/24/18 16:00 67 07/24/18 12:00 63 07/24/18 12:00 2.0 07/24/18 12:00 Bi-pap 07/24/18 12:00 97.2 72 20 157/76 99 Bi-pap 30 Height (Feet): 6 Weight (Pounds): 175 Objective Gen: NAD, Satting well HEENT: DMM, PERRL LUNGS: CTAB, No W/C CARDS: RRR, S1, S2, ABD: Soft, ND SKIN: Warm/dry, No rashes Laboratory Tests Test 07/24/18 12:20 07/24/18 20:35 07/25/18 05:54 Activated Partial Thromboplast Time 50 SEC (23-33) H > 150 SEC (23-33) *H 96 SEC (23-33) H White Blood Count 4.7 K/UL (4.8-10.8) L Red Blood Count 3.83 M/UL (4.70-6.10) L Hemoglobin 11.2 G/DL (14.2-18.0) L Hematocrit 34.1 % (42.0-52.0) L Mean Corpuscular Volume 89 FL (80-99) Mean Corpuscular Hemoglobin 29.2 PG (27.0-31.0) Mean Corpuscular Hemoglobin Concent 32.8 G/DL (32.0-36.0) Red Cell Distribution Width 13.1 % (11.6-14.8) Platelet Count 213 K/UL (150-450) Mean Platelet Volume 4.5 FL (6.5-10.1) L Neutrophils (%) (Auto) 54.9 % (45.0-75.0) Lymphocytes (%) (Auto) 22.2 % (20.0-45.0) Monocytes (%) (Auto) 19.0 % (1.0-10.0) H Eosinophils (%) (Auto) 3.3 % (0.0-3.0) H Basophils (%) (Auto) 0.6 % (0.0-2.0) Sodium Level 141 MMOL/L (136-145) Potassium Level 3.8 MMOL/L (3.5-5.1) Chloride Level 109 MMOL/L (98-107) H Carbon Dioxide Level 25 MMOL/L (21-32) Anion Gap 7 mmol/L (5-15) Blood Urea Nitrogen 4 mg/dL (7-18) L Creatinine 0.8 MG/DL (0.55-1.30) Estimat Glomerular Filtration Rate mL/min (>60) Glucose Level 88 MG/DL (74-106) Calcium Level 8.8 MG/DL (8.5-10.1) Phosphorus Level 3.4 MG/DL (2.5-4.9) Magnesium Level 1.5 MG/DL (1.8-2.4) L Current Medications Medications (Trade) Dose Ordered Sig/Jesi Route PRN Reason Start Time Stop Time Status Last Admin Dose Admin Acetaminophen (Tylenol) 650 mg Q6H PRN NG FOR TEMP > 100 OR PAIN 1-07/21/18 19:45 08/19/18 19:44 Cefazolin Sodium 1 gm/Dextrose 55 ml @ 110 mls/hr Q8H IVPB 07/22/18 02:00 07/28/18 17:59 07/25/18 10:18 Chlorhexidine Gluconate (Candie-Hex 2%) 1 applic DAILY@2000 TOPIC 07/21/18 20:00 08/15/18 19:59 07/24/18 20:06 Dextrose (Dextrose 50%) 25 ml Q30M PRN IV Hypoglycemia 07/21/18 19:45 08/12/18 01:14 Dextrose (Dextrose 50%) 50 ml Q30M PRN IV Hypoglycemia 07/21/18 19:45 08/12/18 01:14 Dextrose/Sodium Chloride 1,000 ml @ 50 mls/hr Q20H IV 07/21/18 19:30 08/20/18 06:14 07/25/18 02:18 Famotidine (Pepcid I.v.) 20 mg Q12HR IVP 07/21/18 21:00 08/12/18 08:59 07/25/18 09:55 Heparin Sodium/ Dextrose 500 ml @ 27.76 mls/ hr ADJUST PER PROTOCOL IV 07/25/18 07:00 08/24/18 06:59 07/25/18 06:54 Insulin Aspart (NovoLOG) EVERY 6 HOURS SUBQ 07/22/18 00:00 08/12/18 12:29 Levetiracetam 100 ml @ 400 mls/hr Q12H IVPB 07/21/18 21:15 08/13/18 21:14 07/25/18 09:55 Levetiracetam 100 ml @ 400 mls/hr Q12HR IVPB 07/21/18 21:00 08/13/18 20:59 07/25/18 09:55 Morphine Sulfate (Morphine Sulfate) 4 mg Q4H PRN IVP For Pain 07/21/18 19:45 07/27/18 23:44 07/21/18 20:14 Valproate Sodium 1000 mg/Dextrose 65 ml @ 32.5 mls/hr Q12HR@0100,1300 IV 07/22/18 01:00 08/13/18 12:59 07/25/18 00:09 Matteo Hunt MD Jul 25, 2018 11:50
[2018-07-25 12:00] VITALS: BP 114/69
--- NOTE | 2018-07-25 13:18 | NUR ---
NURSE NOTES: Lab clinical analyst was unable to draw blood for PTT. Will follow up for Heparin drip change.
[2018-07-25 16:00] VITALS: BP 141/84
[2018-07-25] MEDS ORDERED: D5 1/2NS 1000ml IV ONE (16:23)
[2018-07-25] MEDS ORDERED: Tubing IV Secondary IV ONE (16:23)
[2018-07-25] MEDS ORDERED: NS 275ml ONE (16:23)
--- NOTE | 2018-07-25 16:29 | NUR ---
NURSE NOTES: Patient tolerated an insertion of NG Tube fr 18 in right nare, but later DIRECTOR MARKET INTELLIGENCE found patient pulling the NG Tube out. Spoke to patient about the reason for the NG Tube but still refuses to keep NG tube inserted. Dr. Rubin made aware.
--- NOTE | 2018-07-25 19:03 | NUR ---
HAND-OFF: Report given to Vikki TAMAYO. Patient in stable condition.
--- NOTE | 2018-07-25 19:04 | NUR ---
NURSE NOTES: Received report from RONI Arriola. Patient seen in bed in semi echevarria position. On oxygen 2 L/min via N/C. Sp02 is 97%. Alert, verbally responsive, able to make needs known. Confused at time. Denies pain. PICC line noted to left upper arm. Continues on IVF of D5 1/2 NS at 50CC/hr. Continues on Soft wrist restraint. no redness or irritation noted to bilateral wrist area. Bed is in lowest position. Call light is within easy reach while in bed. Will continue to monitor.
--- NOTE | 2018-07-25 19:10 | Internal Med Progress Note ---
Subjective Date of Service: Jul 25, 2018 Physician Name Michael Rojo Attending Physician Will Mejía MD Current Medications Medications (Trade) Dose Ordered Sig/Jesi Route PRN Reason Start Time Stop Time Status Last Admin Dose Admin Acetaminophen (Tylenol) 650 mg Q6H PRN NG FOR TEMP > 100 OR PAIN 1-07/21/18 19:45 08/19/18 19:44 Cefazolin Sodium 1 gm/Dextrose 55 ml @ 110 mls/hr Q8H IVPB 07/22/18 02:00 07/28/18 17:59 07/25/18 17:41 Chlorhexidine Gluconate (Candie-Hex 2%) 1 applic DAILY@2000 TOPIC 07/21/18 20:00 08/15/18 19:59 07/24/18 20:06 Dextrose (Dextrose 50%) 25 ml Q30M PRN IV Hypoglycemia 07/21/18 19:45 08/12/18 01:14 Dextrose (Dextrose 50%) 50 ml Q30M PRN IV Hypoglycemia 07/21/18 19:45 08/12/18 01:14 Dextrose/Sodium Chloride 1,000 ml @ 50 mls/hr Q20H IV 07/21/18 19:30 08/20/18 06:14 07/25/18 02:18 Famotidine (Pepcid I.v.) 20 mg Q12HR IVP 07/21/18 21:00 08/12/18 08:59 07/25/18 09:55 Heparin Sodium/ Dextrose 500 ml @ 27.76 mls/ hr ADJUST PER PROTOCOL IV 07/25/18 07:00 08/24/18 06:59 07/25/18 18:04 Insulin Aspart (NovoLOG) EVERY 6 HOURS SUBQ 07/22/18 00:00 08/12/18 12:29 Levetiracetam 100 ml @ 400 mls/hr Q12H IVPB 07/21/18 21:15 08/13/18 21:14 07/25/18 09:55 Levetiracetam 100 ml @ 400 mls/hr Q12HR IVPB 07/21/18 21:00 08/13/18 20:59 07/25/18 09:55 Morphine Sulfate (Morphine Sulfate) 4 mg Q4H PRN IVP For Pain 07/21/18 19:45 07/27/18 23:44 07/21/18 20:14 Valproate Sodium 1000 mg/Dextrose 65 ml @ 32.5 mls/hr Q12HR@0100,1300 IV 07/22/18 01:00 08/13/18 12:59 07/25/18 13:00 Allergies: Coded Allergies: HALOPERIDOL (Verified Allergy, Mild, [place] really bad, 07/05/16) Makes him irritable. THIORIDAZINE (Verified Allergy, Mild, [place] really bad, 07/05/16) Makes him violent TRAZODONE (Verified Allergy, Mild, [place] really bad, 07/05/16) Too strong; inability to move. Uncoded Allergies: PSYCHOTROPIC MEDICATION (Allergy, Mild, 08/13/14) ROS Limited/Unobtainable: Yes Subjective 72 YO M admitted with breakthrough seizure. Now respiratory failure. Extubated 07/19/18; nasal canula. Cover for Int Med-Dr Mejía. [facility] Objective Last Vital Signs Date Time Temp Pulse Resp B/P (MAP) Pulse Ox O2 Delivery O2 Flow Rate FiO2 07/25/18 16:00 Nasal Cannula 2.0 07/25/18 16:00 98.2 68 24 141/84 95 07/25/18 07:13 28 Laboratory Tests Test 07/24/18 20:35 07/25/18 05:54 07/25/18 13:50 Activated Partial Thromboplast Time > 150 SEC (23-33) *H 96 SEC (23-33) H 71 SEC (23-33) H White Blood Count 4.7 K/UL (4.8-10.8) L Red Blood Count 3.83 M/UL (4.70-6.10) L Hemoglobin 11.2 G/DL (14.2-18.0) L Hematocrit 34.1 % (42.0-52.0) L Mean Corpuscular Volume 89 FL (80-99) Mean Corpuscular Hemoglobin 29.2 PG (27.0-31.0) Mean Corpuscular Hemoglobin Concent 32.8 G/DL (32.0-36.0) Red Cell Distribution Width 13.1 % (11.6-14.8) Platelet Count 213 K/UL (150-450) Mean Platelet Volume 4.5 FL (6.5-10.1) L Neutrophils (%) (Auto) 54.9 % (45.0-75.0) Lymphocytes (%) (Auto) 22.2 % (20.0-45.0) Monocytes (%) (Auto) 19.0 % (1.0-10.0) H Eosinophils (%) (Auto) 3.3 % (0.0-3.0) H Basophils (%) (Auto) 0.6 % (0.0-2.0) Sodium Level 141 MMOL/L (136-145) Potassium Level 3.8 MMOL/L (3.5-5.1) Chloride Level 109 MMOL/L (98-107) H Carbon Dioxide Level 25 MMOL/L (21-32) Anion Gap 7 mmol/L (5-15) Blood Urea Nitrogen 4 mg/dL (7-18) L Creatinine 0.8 MG/DL (0.55-1.30) Estimat Glomerular Filtration Rate mL/min (>60) Glucose Level 88 MG/DL (74-106) Calcium Level 8.8 MG/DL (8.5-10.1) Phosphorus Level 3.4 MG/DL (2.5-4.9) Magnesium Level 1.5 MG/DL (1.8-2.4) L Intake and Output 07/24/18 07/25/18 18:59 06:59 Intake Total 1270.116 ml 1162.90975 ml Output Total 1500 ml 1350 ml Balance -229.884 ml -187.06474 ml IV Total 1270.116 ml 1162.23041 ml Output Urine Total 1500 ml 1350 ml # Bowel Movements 1 2 Objective PHYSICAL EXAMINATION: GENERAL: The patient is a thin-appearing male, in no apparent distress. HEENT: Eyes, pupils are equal and responsive to light and accommodation. Extraocular movements are intact. NECK: Supple. No lymphadenopathy. CHEST: BIPAP; Few expiratory wheezes bilaterally. Otherwise, without crackles or rales. CARDIOVASCULAR: Tachycardic, regular rate. S1 and S2 are normal without murmurs, rubs, or gallops. ABDOMEN: Soft, nontender, and nondistended. Positive bowel sounds. No evidence of hepatosplenomegaly. Currently, no rebound or guarding noted. EXTREMITIES: Negative for clubbing, cyanosis, or edema. RECTAL/GENITAL: Not performed. NEUROLOGICALLY: Unable to assess secondary to the patient's mental status. Assessment/Plan Assessment/Plan ASSESSMENT: This is a 72-year-old male. 1. Intractable seizures. 2. Respiratory failure. 3. Probable pneumonia of the right upper lobe. 4. History of seizure disorder. 5. Chronic obstructive pulmonary disease. 6. Diabetes type 2. 7. Hypertension. 8. Metabolic encephalopathy. 9. Chronic obstructive pulmonary disease. 10. Chronic renal failure. 11. Traumatic brain injury. 12. Gastroesophageal reflux disease. 13. Coronary artery disease. 14. Anemia. 15. History of gastrointestinal hemorrhage. 16. Hypercholesteremia. 17. Cerebrovascular disease, status post cerebrovascular accident. 18. Dysphagia. 19. Prostate cancer with mets 20. UTI=staph haemolyticus TREATMENT: 1. Intractable seizure. A Neurology consultation has been obtained. The patient has been started on Ativan intravenously. We will follow recommendations of Neurology. Continue Keppra, Dilantin, and Depakote as above. 2. Respiratory failure. Pulmonary consultation has been obtained with Dr. Mari aE Shine. The patient is S/P extubation 07/19/18 now on nasal canula We will follow recommendations of Pulmonary. 3. Chronic obstructive pulmonary disease. As above, a Pulmonary consultation has been obtained with Dr. Maria E Shine. 4. Diabetes type 2. The patient has been placed on a NovoLog sliding scale. 5. Hypertension. The patient is currently hypotensive. 6. Metabolic encephalopathy. 7. Renal failure. 8. Traumatic brain injury. 9. Gastroesophageal reflux disease. 10. Coronary artery disease. 11. Anemia. 12. Gastrointestinal hemorrhage. 13. Hypercholesterolemia. 14. Cerebrovascular disease. 15. Dysphagia, status post PEG placement 16. Abx=cefazolin 17. ID consult=Michael Land MD Jul 25, 2018 19:10
[2018-07-25 20:00] VITALS: BP 147/69
[2018-07-25] MEDS: Dyna-Hex 2% Top Sol 2oz TOPIC SCH (20:19)
--- NOTE | 2018-07-25 20:41 | Neurology Progress Note ---
Interim History Interim History ROS Limited/Unobtainable: Yes Complaints: AMS Events: Back on BIPAP Interim History This visit was performed on July 25, [address] Abad Iniguez. Review of Systems Neuro Review of Systems Lethargic, confused but KAT x 4 and following commands. Objective Physical Exam Last Vital Signs Date Time Temp Pulse Resp B/P (MAP) Pulse Ox O2 Delivery O2 Flow Rate FiO2 07/25/18 19:30 96 Nasal Cannula 2.0 28 07/25/18 16:00 98.2 68 24 141/84 Laboratory Tests Test 07/25/18 05:54 07/25/18 13:50 White Blood Count 4.7 K/UL (4.8-10.8) L Red Blood Count 3.83 M/UL (4.70-6.10) L Hemoglobin 11.2 G/DL (14.2-18.0) L Hematocrit 34.1 % (42.0-52.0) L Mean Corpuscular Volume 89 FL (80-99) Mean Corpuscular Hemoglobin 29.2 PG (27.0-31.0) Mean Corpuscular Hemoglobin Concent 32.8 G/DL (32.0-36.0) Red Cell Distribution Width 13.1 % (11.6-14.8) Platelet Count 213 K/UL (150-450) Mean Platelet Volume 4.5 FL (6.5-10.1) L Neutrophils (%) (Auto) 54.9 % (45.0-75.0) Lymphocytes (%) (Auto) 22.2 % (20.0-45.0) Monocytes (%) (Auto) 19.0 % (1.0-10.0) H Eosinophils (%) (Auto) 3.3 % (0.0-3.0) H Basophils (%) (Auto) 0.6 % (0.0-2.0) Activated Partial Thromboplast Time 96 SEC (23-33) H 71 SEC (23-33) H Sodium Level 141 MMOL/L (136-145) Potassium Level 3.8 MMOL/L (3.5-5.1) Chloride Level 109 MMOL/L (98-107) H Carbon Dioxide Level 25 MMOL/L (21-32) Anion Gap 7 mmol/L (5-15) Blood Urea Nitrogen 4 mg/dL (7-18) L Creatinine 0.8 MG/DL (0.55-1.30) Estimat Glomerular Filtration Rate mL/min (>60) Glucose Level 88 MG/DL (74-106) Calcium Level 8.8 MG/DL (8.5-10.1) Phosphorus Level 3.4 MG/DL (2.5-4.9) Magnesium Level 1.5 MG/DL (1.8-2.4) L General: well developed, well nourished Head: normocophalic Neck: no rigidity EENT: benign Neurologic Exam Mental Status: awake, alert, other Speech: other Language: other Cranial Nerve II: fundus normal, visual dodd, no papilledema Cranial Nerves III, IV, : PERRLA, EOMI Cranial Nerve V: normal facial sensations, temporales function normal, masseters function normal, pterygoids function normal, other Cranial Nerve VII: no facial asymmetry, normal facial expressions Cranial Nerve VIII: normal hearing, no nystagmus Cranial Nerve IX: normal palate elevation, gag response Cranial Nerve XI: SCM symmetric, other Cranial Nerve XII: tongue midline, no tongue atrophy/fasciculations, other Motor System: normal muscle tone, strength 5/5, no involuntary movement, no muscle wasting Sensory: normal pinprick, normal light touch, other Coordination: other Deep Tendon Reflexes: 1+ bicep (L), 1+ bicep (R), 1+ tricep (L), 1+ tricep (R) , 1+ brachioradialis (L), 1+ brachioradialis (R), 1+ knee (L), 1+ knee (R), 1+ ankle (L), 1+ ankle (R) Reflexes: flexor plantar (L), flexor plantar (R); extensor plantar (L), extensor plantar (R) Stance: normal Objective Extubated with eyes open, tracking with eyes- he He is KAT x 4 and some to command with full strength- Pupils are briskly reactive and PERRL - His exam is non focal Has BIPAP mask on now Impression/Recommendations Problems: (1) Acute metabolic encephalopathy (2) Acute encephalopathy (3) Drug abuse (4) COPD (chronic obstructive pulmonary disease) (5) Diabetes mellitus (6) Anemia (7) Acute respiratory failure (8) Seizure disorder (9) UTI (urinary tract infection) (10) Prostate cancer, primary, 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 site (11) Iron deficiency anemia (12) Acute renal failure (ARF) Status: unchanged Recommendations Continue AEDs- doses stable at this time. Reattempt NG tube- patient needs improved nutrition shanae Keppra 1500mg BID Valproate 1000mg BID Monitor LFTs intermittently. Q4 hr neuro obs Maintain normoglycemia with ISS Maintain normothermia Optimize oxygenation PT Intense Chest physiotherapy? Follow up causes of anemia- IRON Replete/ Replace lytes as needed: Potassium/ Magnesium etc Kenia Pompa N.P. Jul 25, 2018 20:41
[2018-07-26] VITALS: BP 146/74
[2018-07-26] MEDS: Valproate Sodium INJ 1,000 MG in D5W 55 ML IV SCH ×2 (00:06→13:12)
[2018-07-26] MEDS: ceFAZolin sod 1 GM in D5W 55 ML IVPB SCH ×3 (02:32→17:09)
--- NOTE | 2018-07-26 03:32 | NUR ---
HAND-OFF: Patient transfered to Telemetry floor, room 209-1 Accompanied by RT and 3 RN via bed. remained on Bipap. Bed side report given to RONI Vela. Patient Stable at this time.
--- NOTE | 2018-07-26 03:33 | NUR ---
NURSE NOTES: Received pt from RONI Florez. Pt transferred on floor from [facility]. Pt is awake and resting in bed, placed on bi PAP by RT. PICC line intact and patent. Sims catheter intact and draining. Restraints on patient, assessed vascular check, WNL. Bed in lowest position, locked, and call light within reach. Will continue plan of care.
[2018-07-26 04:00] VITALS: BP 156/82
[2018-07-26] MEDS: D5 1/2NS 1,000 ML IV SCH ×2 (04:00→19:36)
[2018-07-26 04:26] LABS: BASOPHILS % (AUTO) 0.8 % (0.0-2.0); EOSINOPHILS % (AUTO) 3.7 % (0.0-3.0); HEMATOCRIT 31.9 % (42.0-52.0); HEMOGLOBIN 10.7 G/DL (14.2-18.0); LYMPHOCYTES % (AUTO) 20.3 % (20.0-45.0); MEAN CORPUSCULAR VOLUME 88 FL (80-99); MONOCYTES % (AUTO) 17.9 % (1.0-10.0); NEUTROPHILS % (AUTO) 57.4 % (45.0-75.0); PLATELET COUNT 184 K/UL (150-450); RED BLOOD COUNT 3.62 M/UL (4.70-6.10); RED CELL DISTRIBUTION WIDTH 13.1 % (11.6-14.8); WHITE BLOOD COUNT 4.6 K/UL (4.8-10.8)
[2018-07-26] MEDS ORDERED: Acetaminophen 650mg/20.3ml NG PRN (04:30)
[2018-07-26] MEDS ORDERED: Morphine Sulfate 4mg/ml Inj (IV USE ONLY) IVP PRN (04:30)
[2018-07-26 04:38] LABS: ANION GAP 8 mmol/L (5-15); BLOOD UREA NITROGEN 3 mg/dL (7-18); CALCIUM 8.3 MG/DL (8.5-10.1); CARBON DIOXIDE 26 MMOL/L (21-32); CHLORIDE 109 MMOL/L (98-107); CREATININE 0.7 MG/DL (0.55-1.30); POTASSIUM 3.2 MMOL/L (3.5-5.1); SODIUM 143 MMOL/L (136-145)
[2018-07-26] MEDS: NovoLOG Insulin Flexpen SUBQ SCH ×4 (06:00→17:16)
[2018-07-26] MEDS: Heparin 25,000u/D5W 500ml 500 ML IV SCH ×2 (06:38→13:13)
--- NOTE | 2018-07-26 07:10 | NUR ---
HAND-OFF: Report given to RONI Sabillon. Endorsed plan of care.
--- NOTE | 2018-07-26 07:10 | NUR ---
NURSE NOTES: Received report from RONI Vela. Pt in bed awake with bilateral wrist sift restraints. On oxygen 2 L/min via N/C. O2 saturating with 97%. Alert and confused. and verbally responsive. Able to follow the simple direction. Denies pain. PICC line noted to left upper arm with 2 lumens patent and asymptomatic running with IVF of D5 1/2 NS at 50CC/hr. Bed is in lowest position. Call light is within easy reach. Bed siderails x2 up and covered with blanket. Seizure precautions well maintained. Will continue to monitor.
[2018-07-26 08:00] VITALS: BP 112/37
--- NOTE | 2018-07-26 09:24 | NUR ---
CASE MANAGEMENT: REVIEW 07/26/2018 SI:ACUTE RESP FAILURE. T 97.4 HR 62 RR 20 B/P 112/37 SATS 100% ON BIPAP FiO2 30 WBC 4.6 K 3.2 CL 109 BUN 3 CA 8.3 IS:IVF @ 50 mL/HR INSULIN ASPART SUBQ Q6H HEPARIN DRIP PER PARAMETERS KEPPRA IV Q12H KCL IV Q2H CEFAZOLIN IV Q8H TELE
[2018-07-26] MEDS: levETIRAcetam 1,000mg/NS100ml 100 ML IVPB SCH ×2 (10:00→21:00)
[2018-07-26] MEDS: levETIRAcetam 500mg/NS100ml 100 ML IVPB SCH ×2 (10:02→21:33)
--- NOTE | 2018-07-26 10:15 | GI Progress Note ---
Assessment/Plan Problems: (1) Severe malnutrition ICD Codes: E43 - Unspecified severe protein-calorie malnutrition SNOMED: 52826676 (2) Encounter for PEG (percutaneous endoscopic gastrostomy) ICD Codes: Z43.1 - Encounter for attention to gastrostomy SNOMED: 361279104, 771096621 (3) Dehydration ICD Codes: E86.0 - Dehydration SNOMED: 48954939 (4) Drug abuse ICD Codes: F19.10 - Drug abuse SNOMED: 78402078 (5) Iron deficiency anemia ICD Codes: D50.9 - Iron deficiency anemia SNOMED: 13199952 (6) Anemia ICD Codes: D64.9 - Anemia, unspecified SNOMED: 724467210 Status: deteriorating Status Narrative Discussed with Dr. Rubin. Assessment/Plan needs PEG, patient pulled NGT again unable to reach family for consent will consult manager social responsibility The patient was seen and examined at bedside and all new and available data was reviewed in the patients chart. I agree with the above findings, impression and plan. (Patient seen earlier today. Signature stamp does not reflect patient encounter time.). - Mu Rubin MD Subjective Subjective Limited Objective Last 24 Hour Vital Signs Date Time Temp Pulse Resp B/P (MAP) Pulse Ox O2 Delivery O2 Flow Rate FiO2 07/26/18 08:00 97.4 62 20 112/37 100 Bi-pap 30 07/26/18 07:53 Bi-pap 30 07/26/18 07:52 58 16 97 07/26/18 04:50 68 16 99 Facial 30 07/26/18 04:00 30 07/26/18 04:00 98.0 66 20 156/82 97 Bi-pap 30 07/26/18 04:00 66 07/26/18 03:41 66 21 98 Facial 30 07/26/18 03:03 62 19 99 Facial 30 07/26/18 01:03 65 19 98 Facial 30 07/26/18 00:00 Bi-pap 07/26/18 00:00 97.8 65 20 146/74 65 Nasal Cannula 2.0 07/25/18 23:23 66 07/25/18 23:15 67 18 99 Facial 30 07/25/18 20:00 98.9 69 20 147/69 96 Nasal Cannula 2.0 07/25/18 20:00 2.0 07/25/18 20:00 Nasal Cannula 2.0 07/25/18 19:30 96 Nasal Cannula 2.0 28 07/25/18 19:21 66 07/25/18 16:00 Nasal Cannula 2.0 07/25/18 16:00 98.2 68 24 141/84 95 Nasal Cannula 2.0 07/25/18 16:00 2.0 07/25/18 15:23 69 07/25/18 12:00 98.3 65 17 114/69 99 Nasal Cannula 2.0 07/25/18 12:00 2.0 07/25/18 12:00 Nasal Cannula 2.0 07/25/18 11:47 67 Intake and Output 07/25/18 07/26/18 19:00 07:00 Intake Total 470.0 ml 919.98168 ml Output Total 1500 ml 350 ml Balance -1030.0 ml 569.26876 ml IV Total 470.0 ml 919.43006 ml Output Urine Total 1500 ml 350 ml Laboratory Tests Test 07/25/18 13:50 07/26/18 04:00 Activated Partial Thromboplast Time 71 SEC (23-33) H 77 SEC (23-33) H White Blood Count 4.6 K/UL (4.8-10.8) L Red Blood Count 3.62 M/UL (4.70-6.10) L Hemoglobin 10.7 G/DL (14.2-18.0) L Hematocrit 31.9 % (42.0-52.0) L Mean Corpuscular Volume 88 FL (80-99) Mean Corpuscular Hemoglobin 29.5 PG (27.0-31.0) Mean Corpuscular Hemoglobin Concent 33.5 G/DL (32.0-36.0) Red Cell Distribution Width 13.1 % (11.6-14.8) Platelet Count 184 K/UL (150-450) Mean Platelet Volume 4.3 FL (6.5-10.1) L Neutrophils (%) (Auto) 57.4 % (45.0-75.0) Lymphocytes (%) (Auto) 20.3 % (20.0-45.0) Monocytes (%) (Auto) 17.9 % (1.0-10.0) H Eosinophils (%) (Auto) 3.7 % (0.0-3.0) H Basophils (%) (Auto) 0.8 % (0.0-2.0) Sodium Level 143 MMOL/L (136-145) Potassium Level 3.2 MMOL/L (3.5-5.1) L Chloride Level 109 MMOL/L (98-107) H Carbon Dioxide Level 26 MMOL/L (21-32) Anion Gap 8 mmol/L (5-15) Blood Urea Nitrogen 3 mg/dL (7-18) L Creatinine 0.7 MG/DL (0.55-1.30) Estimat Glomerular Filtration Rate mL/min (>60) Glucose Level 98 MG/DL (74-106) Calcium Level 8.3 MG/DL (8.5-10.1) L Height (Feet): 6 Weight (Pounds): 175 General Appearance: WD/WN, no apparent distress, alert Cardiovascular: normal rate Respiratory/Chest: normal breath sounds, no respiratory distress Abdominal Exam: normal bowel sounds, non tender, soft Extremities: non-tender Objective Patient pulled NGT Gerald Verdin NP Jul 26, 2018 10:15
--- NOTE | 2018-07-26 10:17 | Pulmonology Progress Note ---
Assessment/Plan Problems: (1) Acute respiratory failure (2) Acute metabolic encephalopathy (3) COPD (chronic obstructive pulmonary disease) (4) Acute renal failure (ARF) (5) Lumbar spondylosis (6) posttraumatic seizure disorder (7) Diabetes mellitus (8) Anemia (9) Chronic low back pain (10) Seizure disorder Assessment/Plan less confused doing better failed swallow study, will need PEG Dubhoff will be tried by GI on Nasal Canula now respiratory treatment check electrolytes swallow study sliding scale diabetic diet symptomatic treatment dvt prophylaxis. Subjective ROS Limited/Unobtainable: No Constitutional: Reports: no symptoms HEENT: Repors: no symptoms Respiratory: Reports: no symptoms Allergies: Coded Allergies: HALOPERIDOL (Verified Allergy, Mild, [place] really bad, 07/05/16) Makes him irritable. THIORIDAZINE (Verified Allergy, Mild, [place] really bad, 07/05/16) Makes him violent TRAZODONE (Verified Allergy, Mild, [place] really bad, 07/05/16) Too strong; inability to move. Uncoded Allergies: PSYCHOTROPIC MEDICATION (Allergy, Mild, 08/13/14) Objective Last 24 Hour Vital Signs Date Time Temp Pulse Resp B/P (MAP) Pulse Ox O2 Delivery O2 Flow Rate FiO2 07/26/18 08:00 97.4 62 20 112/37 100 Bi-pap 30 07/26/18 07:53 Bi-pap 30 07/26/18 07:52 58 16 97 07/26/18 04:50 68 16 99 Facial 30 07/26/18 04:00 30 07/26/18 04:00 98.0 66 20 156/82 97 Bi-pap 30 07/26/18 04:00 66 07/26/18 03:41 66 21 98 Facial 30 07/26/18 03:03 62 19 99 Facial 30 07/26/18 01:03 65 19 98 Facial 30 07/26/18 00:00 Bi-pap 07/26/18 00:00 97.8 65 20 146/74 65 Nasal Cannula 2.0 07/25/18 23:23 66 07/25/18 23:15 67 18 99 Facial 30 07/25/18 20:00 98.9 69 20 147/69 96 Nasal Cannula 2.0 07/25/18 20:00 2.0 07/25/18 20:00 Nasal Cannula 2.0 07/25/18 19:30 96 Nasal Cannula 2.0 28 07/25/18 19:21 66 07/25/18 16:00 Nasal Cannula 2.0 07/25/18 16:00 98.2 68 24 141/84 95 Nasal Cannula 2.0 07/25/18 16:00 2.0 07/25/18 15:23 69 07/25/18 12:00 98.3 65 17 114/69 99 Nasal Cannula 2.0 07/25/18 12:00 2.0 07/25/18 12:00 Nasal Cannula 2.0 07/25/18 11:47 67 Intake and Output 07/25/18 07/26/18 19:00 07:00 Intake Total 470.0 ml 919.05212 ml Output Total 1500 ml 350 ml Balance -1030.0 ml 569.06260 ml IV Total 470.0 ml 919.87865 ml Output Urine Total 1500 ml 350 ml General Appearance: WD/WN HEENT: normocephalic, atraumatic Respiratory/Chest: chest wall non-tender, lungs clear Cardiovascular: normal peripheral pulses, normal rate Abdomen: normal bowel sounds, soft, non tender Genitourinary: normal external genitalia Skin: no lesions Laboratory Tests 07/25/18 13:50: Activated Partial Thromboplast Time 71H 07/26/18 04:00: Activated Partial Thromboplast Time 77H, White Blood Count 4.6L, Red Blood Count 3.62L, Hemoglobin 10.7L, Hematocrit 31.9L, Mean Corpuscular Volume 88, Mean Corpuscular Hemoglobin 29.5, Mean Corpuscular Hemoglobin Concent 33.5, Red Cell Distribution Width 13.1, Platelet Count 184, Mean Platelet Volume 4.3L, Neutrophils (%) (Auto) 57.4, Lymphocytes (%) (Auto) 20.3, Monocytes (%) (Auto) 17.9H, Eosinophils (%) (Auto) 3.7H, Basophils (%) (Auto) 0.8, Sodium Level 143, Potassium Level 3.2L, Chloride Level 109H, Carbon Dioxide Level 26, Anion Gap 8 , Blood Urea Nitrogen 3L, Creatinine 0.7, Estimat Glomerular Filtration Rate , Glucose Level 98, Calcium Level 8.3L Current Medications Medications (Trade) Dose Ordered Sig/Jesi Route PRN Reason Start Time Stop Time Status Last Admin Dose Admin Acetaminophen (Tylenol) 650 mg Q6H PRN NG FOR TEMP > 100 OR PAIN 1-07/26/18 04:30 08/19/18 04:29 Cefazolin Sodium 1 gm/Dextrose 55 ml @ 110 mls/hr Q8H IVPB 07/26/18 10:00 07/28/18 17:59 Chlorhexidine Gluconate (Candie-Hex 2%) 1 applic DAILY@2000 TOPIC 07/26/18 20:00 08/15/18 19:59 Dextrose (Dextrose 50%) 25 ml Q30M PRN IV Hypoglycemia 07/26/18 04:15 08/12/18 01:14 Dextrose (Dextrose 50%) 50 ml Q30M PRN IV Hypoglycemia 07/26/18 04:15 08/12/18 01:14 Dextrose/Sodium Chloride 1,000 ml @ 50 mls/hr Q20H IV 07/26/18 04:00 08/20/18 06:14 Famotidine (Pepcid I.v.) 20 mg Q12HR IVP 07/26/18 09:00 08/12/18 08:59 07/26/18 09:45 Heparin Sodium/ Dextrose 500 ml @ 27.76 mls/ hr ADJUST PER PROTOCOL IV 07/26/18 07:00 08/24/18 06:59 07/26/18 06:38 Insulin Aspart (NovoLOG) EVERY 6 HOURS SUBQ 07/26/18 06:00 08/12/18 12:29 Levetiracetam 100 ml @ 400 mls/hr Q12H IVPB 07/26/18 09:15 08/13/18 21:14 07/26/18 10:02 Levetiracetam 100 ml @ 400 mls/hr Q12HR IVPB 07/26/18 09:00 08/13/18 20:59 07/26/18 10:00 Morphine Sulfate (Morphine Sulfate) 4 mg Q4H PRN IVP For Pain 07/26/18 04:30 07/27/18 04:29 Valproate Sodium 1000 mg/Dextrose 65 ml @ 32.5 mls/hr Q12HR@0100,1300 IV 07/26/18 13:00 08/13/18 12:59 Maria E hSine MD Jul 26, 2018 10:17
--- NOTE | 2018-07-26 11:30 | NUR ---
Social Service Note Patient is non-represented. SW met with patient today to address POLST completed 03/24/18 indicating CPR, Full treatment and No artificial means of nutrition. Patient doesn't have an advance directive. Patient was alert, oriented and verbally responsive. Patient stated he had a G-tube previously and feels when you have a tube you are forgotten. Patient is aware he has swallowing issues but he wants to eat and drink by month. SW discussed the concerns ST presented to SW regarding risks for aspiration and further medial decline without the necessary nutrition and or medications. Patient states he would like time to think about the placement of G-tube. SW discussed with ST. SW recommends follow up conversations with patient from ST and GI. Patient has the right to refuse care. Patient able to sign consent if in agreement. Will continue to monitor.
--- NOTE | 2018-07-26 11:35 | NUR ---
ST NOTE: SWALLOW/SPEECH/COGNITIONS STATUS: PT SEEN AT BEDSIDE IN AM. ALERT, COOPERATIVE, BUT SEEMS CONFUSED, ABLE TO FOLLOW SIMPLE DIRECTIONS WITH MAX CUES. PT IS ON BIPAP AT NIGHT AND WITH NC(2L). OXYGEN LEVEL: 100%. WET VOCAL QUALITY WAS NOTED AND REQUIRED DEEP OROPHARYNGEAL SUCTION TO CLEAR IT, PT ALSO COUGHED ON HIS OWN SECRETION. ATTEMPTED SWALLOW TX, COMPLETED LARYNGEAL EXS(FALSETTO "EE") X 10 SETS WITH MAX CUES. PT FOLLOWED 20% OF THE TIME. EDUCATED PT THAT HE IS NOT SAFE FOR PO INTAKE. D/W RN, MIN AND THE STAFF.
--- NOTE | 2018-07-26 11:49 | Infectious Diseases Prog Note ---
Assessment/Plan Assessment/Plan 72 yo male with PMHx of TBI, Seizure disorder, COPD, Encephalopathy, DM, HTN, CVA, Renal failure, CAD and Dysphagia s/p Peg who was brought to the ED on with intractable seizures. Respiratory failure Most probably due to seizures Active PNA unlikely Sputum Cx 07/12/18 - NF Bacteriuria UTI unlikely UCx - Staph h. S/P 2 days Vancomycin DVT right leg On Heparin TBI Seizure disorder COPD Encephalopathy DM HTN CVA Renal failure CAD Dysphagia s/p Peg Extubated 07/19/18 PLAN - Continue Cefazolin #5 / 7 On D/C could switch to Augmentin 875 BID to finish the course 07/15/18 S/P Vancomycin and Zosyn #2 - Supportive care - Monitor CBC and Temps Subjective Allergies: Coded Allergies: HALOPERIDOL (Verified Allergy, Mild, [place] really bad, 07/05/16) Makes him irritable. THIORIDAZINE (Verified Allergy, Mild, [place] really bad, 07/05/16) Makes him violent TRAZODONE (Verified Allergy, Mild, [place] really bad, 07/05/16) Too strong; inability to move. Uncoded Allergies: PSYCHOTROPIC MEDICATION (Allergy, Mild, 08/13/14) Subjective Satting well on NC Afebrile No Leukocytosis Objective Vital Signs Last 24 Hour Vital Signs Date Time Temp Pulse Resp B/P (MAP) Pulse Ox O2 Delivery O2 Flow Rate FiO2 07/26/18 09:00 Nasal Cannula 2.0 07/26/18 08:00 2.0 07/26/18 08:00 97.4 62 20 112/37 100 Bi-pap 30 07/26/18 07:53 Bi-pap 30 07/26/18 07:52 58 16 97 07/26/18 04:50 68 16 99 Facial 30 07/26/18 04:00 30 07/26/18 04:00 98.0 66 20 156/82 97 Bi-pap 30 07/26/18 04:00 66 07/26/18 03:41 66 21 98 Facial 30 07/26/18 03:03 62 19 99 Facial 30 07/26/18 01:03 65 19 98 Facial 30 07/26/18 00:00 Bi-pap 07/26/18 00:00 97.8 65 20 146/74 65 Nasal Cannula 2.0 07/25/18 23:23 66 07/25/18 23:15 67 18 99 Facial 30 07/25/18 20:00 98.9 69 20 147/69 96 Nasal Cannula 2.0 07/25/18 20:00 2.0 07/25/18 20:00 Nasal Cannula 2.0 07/25/18 19:30 96 Nasal Cannula 2.0 28 07/25/18 19:21 66 07/25/18 16:00 Nasal Cannula 2.0 07/25/18 16:00 98.2 68 24 141/84 95 Nasal Cannula 2.0 07/25/18 16:00 2.0 07/25/18 15:23 69 07/25/18 12:00 98.3 65 17 114/69 99 Nasal Cannula 2.0 07/25/18 12:00 2.0 07/25/18 12:00 Nasal Cannula 2.0 Height (Feet): 6 Weight (Pounds): 173 Objective Gen: NAD HEENT: DMM, PERRL LUNGS: CTAB, No W/C CARDS: RRR, S1, S2, ABD: Soft, ND SKIN: Warm/dry, No rashes Laboratory Tests Test 07/25/18 13:50 07/26/18 04:00 Activated Partial Thromboplast Time 71 SEC (23-33) H 77 SEC (23-33) H White Blood Count 4.6 K/UL (4.8-10.8) L Red Blood Count 3.62 M/UL (4.70-6.10) L Hemoglobin 10.7 G/DL (14.2-18.0) L Hematocrit 31.9 % (42.0-52.0) L Mean Corpuscular Volume 88 FL (80-99) Mean Corpuscular Hemoglobin 29.5 PG (27.0-31.0) Mean Corpuscular Hemoglobin Concent 33.5 G/DL (32.0-36.0) Red Cell Distribution Width 13.1 % (11.6-14.8) Platelet Count 184 K/UL (150-450) Mean Platelet Volume 4.3 FL (6.5-10.1) L Neutrophils (%) (Auto) 57.4 % (45.0-75.0) Lymphocytes (%) (Auto) 20.3 % (20.0-45.0) Monocytes (%) (Auto) 17.9 % (1.0-10.0) H Eosinophils (%) (Auto) 3.7 % (0.0-3.0) H Basophils (%) (Auto) 0.8 % (0.0-2.0) Sodium Level 143 MMOL/L (136-145) Potassium Level 3.2 MMOL/L (3.5-5.1) L Chloride Level 109 MMOL/L (98-107) H Carbon Dioxide Level 26 MMOL/L (21-32) Anion Gap 8 mmol/L (5-15) Blood Urea Nitrogen 3 mg/dL (7-18) L Creatinine 0.7 MG/DL (0.55-1.30) Estimat Glomerular Filtration Rate mL/min (>60) Glucose Level 98 MG/DL (74-106) Calcium Level 8.3 MG/DL (8.5-10.1) L Current Medications Medications (Trade) Dose Ordered Sig/Jesi Route PRN Reason Start Time Stop Time Status Last Admin Dose Admin Acetaminophen (Tylenol) 650 mg Q6H PRN NG FOR TEMP > 100 OR PAIN 1-07/26/18 04:30 08/19/18 04:29 Cefazolin Sodium 1 gm/Dextrose 55 ml @ 110 mls/hr Q8H IVPB 07/26/18 10:00 07/28/18 17:59 07/26/18 11:17 Chlorhexidine Gluconate (Candie-Hex 2%) 1 applic DAILY@2000 TOPIC 07/26/18 20:00 08/15/18 19:59 Dextrose (Dextrose 50%) 25 ml Q30M PRN IV Hypoglycemia 07/26/18 04:15 08/12/18 01:14 Dextrose (Dextrose 50%) 50 ml Q30M PRN IV Hypoglycemia 07/26/18 04:15 08/12/18 01:14 Dextrose/Sodium Chloride 1,000 ml @ 50 mls/hr Q20H IV 07/26/18 04:00 08/20/18 06:14 Famotidine (Pepcid I.v.) 20 mg Q12HR IVP 07/26/18 09:00 08/12/18 08:59 07/26/18 09:45 Heparin Sodium/ Dextrose 500 ml @ 27.76 mls/ hr ADJUST PER PROTOCOL IV 07/26/18 07:00 08/24/18 06:59 07/26/18 06:38 Insulin Aspart (NovoLOG) EVERY 6 HOURS SUBQ 07/26/18 06:00 08/12/18 12:29 Levetiracetam 100 ml @ 400 mls/hr Q12H IVPB 07/26/18 09:15 08/13/18 21:14 07/26/18 10:02 Levetiracetam 100 ml @ 400 mls/hr Q12HR IVPB 07/26/18 09:00 08/13/18 20:59 07/26/18 10:00 Morphine Sulfate (Morphine Sulfate) 4 mg Q4H PRN IVP For Pain 07/26/18 04:30 07/27/18 04:29 Valproate Sodium 1000 mg/Dextrose 65 ml @ 32.5 mls/hr Q12HR@0100,1300 IV 07/26/18 13:00 08/13/18 12:59 Matteo Hunt MD Jul 26, 2018 11:49
[2018-07-26 12:00] VITALS: BP 133/61
--- NOTE | 2018-07-26 12:25 | NUR ---
ST NOTE: SWALLOW STATUS SPOKE TO GAUTAM BROWN RE:PT'S CONDITIONS. PER SW, WAS UNABLE TO LOCATE PT'S AND PER PT, HIS LAST YEAR. PER SW, PT DOESN'T WANT PEG PLACEMENT EVEN THOUGH SW EXPLAINED THAT PT IS AT HIGH RISK FOR ASPIRATION BUT WOULD CONSIDER. SEEN PT AGAIN AT BEDSIDE, WET VOCAL QUALITY WAS NOTED AND PT ALSO COUGHED ON HIS OWN SALIVA. DISCUSSED WITH PT RE: PLAN OF CARE. RECOMMENDED PEG PLACEMENT AND SWALLOW EXS AND SOME PO TRIAL WITH ST. PER PT, HE WANTS TO EAT AND HE DOESN'T WANT PEG PLACEMENT. EXPLAINED TO PT THAT HE IS AT HIGH RISK FOR CHRONIC ASPIRATION IF HE IS EATING/DRINKING BY MOUTH. PT VERBALIZED THE GOOD UNDERSTANDING OF INFO GIVEN. AND PER PT, WOULD CONSIDER. WILL FOLLOW UP TOMORROW D/W THE STAFF
--- NOTE | 2018-07-26 13:36 | NUR ---
RD ASSESSMENT & RECOMMENDATIONS SEE CARE ACTIVITY FOR COMPLETE ASSESSMENT DAILY ESTIMATED NEEDS: Needs based on Pulmonary 78kg 25-30 kcals/kg 7068-1819 total kcals 1-1.5 g protein/kg 78-117 g total protein 25-30 mL/kg 0048-0138 total fluid mLs NUTRITION DIAGNOSIS: Swallowing difficulty R/T respiratory status, h/o CVA/TIA as evidenced by pt is now s/p extubation, s/p pulling out NGT, NPO, pending [employer] eval. PO DIET RECOMMENDATIONS: LOW NA/ texture per [employer] + Glucerna TID w/ meals ENTERAL NUTRITION RECOMMENDATIONS: IF TF INDICATED -> GLUCERNA 1.5 @55ml/hr x 24 hrs to provide 1320ml, 1980kcal, 109g prot, 1002ml free water * IF PT FAILS VSS AND TF IS INDICATED, OBTAIN GI ACCESS FOR TF * Initiate Glucerna 1.5 @ 25ml/hr x 6hrs, advance 10ml q 4-6 hrs as tolerated to goal rate. * HOB over 30 degrees/ water flush per MD ---- ADDITIONAL RECOMMENDATIONS: * Obtain calibrated bedscale wt for accurate CBW (scale reads 2.6kg/ error) * Monitor NPO status, f/up with VSS result -> TF REC ABOVE IF PT FAILS VSS * Lytes daily, replete as needed (Low K, Low Mg) .
[2018-07-26 16:00] VITALS: BP 125/61
--- NOTE | 2018-07-26 16:48 | Internal Med Progress Note ---
Subjective Date of Service: Jul 26, 2018 Physician Name Rojo,Michael Attending Physician Will Mejía MD Current Medications Medications (Trade) Dose Ordered Sig/Jesi Route PRN Reason Start Time Stop Time Status Last Admin Dose Admin Acetaminophen (Tylenol) 650 mg Q6H PRN NG FOR TEMP > 100 OR PAIN 1-07/26/18 04:30 08/19/18 04:29 Cefazolin Sodium 1 gm/Dextrose 55 ml @ 110 mls/hr Q8H IVPB 07/26/18 10:00 07/28/18 17:59 07/26/18 11:17 Chlorhexidine Gluconate (Candie-Hex 2%) 1 applic DAILY@2000 TOPIC 07/26/18 20:00 08/15/18 19:59 Dextrose (Dextrose 50%) 25 ml Q30M PRN IV Hypoglycemia 07/26/18 04:15 08/12/18 01:14 Dextrose (Dextrose 50%) 50 ml Q30M PRN IV Hypoglycemia 07/26/18 04:15 08/12/18 01:14 Dextrose/Sodium Chloride 1,000 ml @ 50 mls/hr Q20H IV 07/26/18 04:00 08/20/18 06:14 Famotidine (Pepcid I.v.) 20 mg Q12HR IVP 07/26/18 09:00 08/12/18 08:59 07/26/18 09:45 Heparin Sodium/ Dextrose 500 ml @ 27.76 mls/ hr ADJUST PER PROTOCOL IV 07/26/18 07:00 08/24/18 06:59 07/26/18 13:13 Insulin Aspart (NovoLOG) EVERY 6 HOURS SUBQ 07/26/18 06:00 08/12/18 12:29 Levetiracetam 100 ml @ 400 mls/hr Q12H IVPB 07/26/18 09:15 08/13/18 21:14 07/26/18 10:02 Levetiracetam 100 ml @ 400 mls/hr Q12HR IVPB 07/26/18 09:00 08/13/18 20:59 07/26/18 10:00 Morphine Sulfate (Morphine Sulfate) 4 mg Q4H PRN IVP For Pain 07/26/18 04:30 07/27/18 04:29 Valproate Sodium 1000 mg/Dextrose 65 ml @ 32.5 mls/hr Q12HR@0100,1300 IV 07/26/18 13:00 08/13/18 12:59 07/26/18 13:12 Allergies: Coded Allergies: HALOPERIDOL (Verified Allergy, Mild, [place] really bad, 07/05/16) Makes him irritable. THIORIDAZINE (Verified Allergy, Mild, [place] really bad, 07/05/16) Makes him violent TRAZODONE (Verified Allergy, Mild, [place] really bad, 07/05/16) Too strong; inability to move. Uncoded Allergies: PSYCHOTROPIC MEDICATION (Allergy, Mild, 08/13/14) ROS Limited/Unobtainable: No Constitutional: Reports: no symptoms Cardiovascular: Reports: no symptoms Respiratory: Reports: cough, sputum Gastrointestinal/Abdominal: Reports: no symptoms Genitourinary: Reports: no symptoms Neurologic/Psychiatric: Reports: no symptoms Subjective 72 YO M admitted with breakthrough seizure. Now respiratory failure. Extubated 07/19/18; nasal canula. Cover for Int Med-Dr Mejía. Still C/O productive cough Objective Last Vital Signs Date Time Temp Pulse Resp B/P (MAP) Pulse Ox O2 Delivery O2 Flow Rate FiO2 07/26/18 16:00 98.5 68 19 125/61 98 Bi-pap 2.0 07/26/18 12:00 30 Laboratory Tests Test 07/26/18 04:00 White Blood Count 4.6 K/UL (4.8-10.8) L Red Blood Count 3.62 M/UL (4.70-6.10) L Hemoglobin 10.7 G/DL (14.2-18.0) L Hematocrit 31.9 % (42.0-52.0) L Mean Corpuscular Volume 88 FL (80-99) Mean Corpuscular Hemoglobin 29.5 PG (27.0-31.0) Mean Corpuscular Hemoglobin Concent 33.5 G/DL (32.0-36.0) Red Cell Distribution Width 13.1 % (11.6-14.8) Platelet Count 184 K/UL (150-450) Mean Platelet Volume 4.3 FL (6.5-10.1) L Neutrophils (%) (Auto) 57.4 % (45.0-75.0) Lymphocytes (%) (Auto) 20.3 % (20.0-45.0) Monocytes (%) (Auto) 17.9 % (1.0-10.0) H Eosinophils (%) (Auto) 3.7 % (0.0-3.0) H Basophils (%) (Auto) 0.8 % (0.0-2.0) Activated Partial Thromboplast Time 77 SEC (23-33) H Sodium Level 143 MMOL/L (136-145) Potassium Level 3.2 MMOL/L (3.5-5.1) L Chloride Level 109 MMOL/L (98-107) H Carbon Dioxide Level 26 MMOL/L (21-32) Anion Gap 8 mmol/L (5-15) Blood Urea Nitrogen 3 mg/dL (7-18) L Creatinine 0.7 MG/DL (0.55-1.30) Estimat Glomerular Filtration Rate mL/min (>60) Glucose Level 98 MG/DL (74-106) Calcium Level 8.3 MG/DL (8.5-10.1) L Intake and Output 07/25/18 07/26/18 18:59 06:59 Intake Total 420.0 ml 969.57801 ml Output Total 1500 ml 350 ml Balance -1080.0 ml 619.48060 ml IV Total 420.0 ml 969.40204 ml Output Urine Total 1500 ml 350 ml Objective PHYSICAL EXAMINATION: GENERAL: The patient is a thin-appearing male, in no apparent distress. HEENT: Eyes, pupils are equal and responsive to light and accommodation. Extraocular movements are intact. NECK: Supple. No lymphadenopathy. CHEST: Nasal canula; Few expiratory wheezes bilaterally. Otherwise, without crackles or rales. CARDIOVASCULAR: Tachycardic, regular rate. S1 and S2 are normal without murmurs, rubs, or gallops. ABDOMEN: Soft, nontender, and nondistended. Positive bowel sounds. No evidence of hepatosplenomegaly. Currently, no rebound or guarding noted. EXTREMITIES: Negative for clubbing, cyanosis, or edema. RECTAL/GENITAL: Not performed. NEUROLOGICALLY: Unable to assess secondary to the patient's mental status. Assessment/Plan Assessment/Plan ASSESSMENT: This is a 72-year-old male. 1. Intractable seizures. 2. Respiratory failure. 3. Probable pneumonia of the right upper lobe. 4. History of seizure disorder. 5. Chronic obstructive pulmonary disease. 6. Diabetes type 2. 7. Hypertension. 8. Metabolic encephalopathy. 9. Chronic obstructive pulmonary disease. 10. Chronic renal failure. 11. Traumatic brain injury. 12. Gastroesophageal reflux disease. 13. Coronary artery disease. 14. Anemia. 15. History of gastrointestinal hemorrhage. 16. Hypercholesteremia. 17. Cerebrovascular disease, status post cerebrovascular accident. 18. Dysphagia. 19. Prostate cancer with mets 20. UTI=staph haemolyticus TREATMENT: 1. Intractable seizure. A Neurology consultation has been obtained. The patient has been started on Ativan intravenously. We will follow recommendations of Neurology. Continue Keppra, Dilantin, and Depakote as above. 2. Respiratory failure. Pulmonary consultation has been obtained with Dr. Maria E Shine. The patient is S/P extubation 07/19/18 now on nasal canula We will follow recommendations of Pulmonary. 3. Chronic obstructive pulmonary disease. As above, a Pulmonary consultation has been obtained with Dr. Maria E Shine. 4. Diabetes type 2. The patient has been placed on a NovoLog sliding scale. 5. Hypertension. The patient is currently hypotensive. 6. Metabolic encephalopathy. 7. Renal failure. 8. Traumatic brain injury. 9. Gastroesophageal reflux disease. 10. Coronary artery disease. 11. Anemia. 12. Gastrointestinal hemorrhage. 13. Hypercholesterolemia. 14. Cerebrovascular disease. 15. Dysphagia, status post PEG placement 16. Abx=cefazolin 17. ID consult=Michael Land MD Jul 26, 2018 16:48
--- NOTE | 2018-07-26 19:39 | NUR ---
HAND-OFF: Report given to Porfirio TAMAYO. Pt remains stable.
--- NOTE | 2018-07-26 19:40 | NUR ---
NURSE NOTES: Received report from RONI Sabillon. Pt is awake and resting in bed. In no acute distress. IV PICC line on KAMILLA intact and patent. Bed in lowest position, call light within reach. Will continue plan of care.
[2018-07-26 20:00] VITALS: BP 156/72
[2018-07-26] MEDS: Dyna-Hex 2% Top Sol 2oz TOPIC SCH (21:00)
--- NOTE | 2018-07-26 23:43 | Neurology Progress Note ---
Interim History Interim History ROS Limited/Unobtainable: No Complaints: AMS Events: Afebrile, nutritionally deficient, iron deficient Interim History This visit was performed on July 26, [address] Abad Iniguez. Review of Systems Neuro Review of Systems MS / Neuro exam stable. Objective Physical Exam Last Vital Signs Date Time Temp Pulse Resp B/P (MAP) Pulse Ox O2 Delivery O2 Flow Rate FiO2 07/26/18 23:09 77 18 99 Facial 30 07/26/18 21:00 2.0 07/26/18 20:00 98.6 156/72 Laboratory Tests Test 07/26/18 04:00 White Blood Count 4.6 K/UL (4.8-10.8) L Red Blood Count 3.62 M/UL (4.70-6.10) L Hemoglobin 10.7 G/DL (14.2-18.0) L Hematocrit 31.9 % (42.0-52.0) L Mean Corpuscular Volume 88 FL (80-99) Mean Corpuscular Hemoglobin 29.5 PG (27.0-31.0) Mean Corpuscular Hemoglobin Concent 33.5 G/DL (32.0-36.0) Red Cell Distribution Width 13.1 % (11.6-14.8) Platelet Count 184 K/UL (150-450) Mean Platelet Volume 4.3 FL (6.5-10.1) L Neutrophils (%) (Auto) 57.4 % (45.0-75.0) Lymphocytes (%) (Auto) 20.3 % (20.0-45.0) Monocytes (%) (Auto) 17.9 % (1.0-10.0) H Eosinophils (%) (Auto) 3.7 % (0.0-3.0) H Basophils (%) (Auto) 0.8 % (0.0-2.0) Activated Partial Thromboplast Time 77 SEC (23-33) H Sodium Level 143 MMOL/L (136-145) Potassium Level 3.2 MMOL/L (3.5-5.1) L Chloride Level 109 MMOL/L (98-107) H Carbon Dioxide Level 26 MMOL/L (21-32) Anion Gap 8 mmol/L (5-15) Blood Urea Nitrogen 3 mg/dL (7-18) L Creatinine 0.7 MG/DL (0.55-1.30) Estimat Glomerular Filtration Rate mL/min (>60) Glucose Level 98 MG/DL (74-106) Calcium Level 8.3 MG/DL (8.5-10.1) L General: well developed, well nourished Head: normocophalic Neck: no rigidity EENT: benign Neurologic Exam Mental Status: awake, alert, other Speech: other Language: other Cranial Nerve II: fundus normal, visual dodd, no papilledema Cranial Nerves III, IV, : PERRLA, EOMI Cranial Nerve V: normal facial sensations, temporales function normal, masseters function normal, pterygoids function normal, other Cranial Nerve VII: no facial asymmetry, normal facial expressions Cranial Nerve VIII: normal hearing, no nystagmus Cranial Nerve IX: normal palate elevation, gag response Cranial Nerve XI: SCM symmetric, other Cranial Nerve XII: tongue midline, no tongue atrophy/fasciculations, other Motor System: normal muscle tone, strength 5/5, no involuntary movement, no muscle wasting Sensory: normal pinprick, normal light touch, other Coordination: other Deep Tendon Reflexes: 1+ bicep (L), 1+ bicep (R), 1+ tricep (L), 1+ tricep (R) , 1+ brachioradialis (L), 1+ brachioradialis (R), 1+ knee (L), 1+ knee (R), 1+ ankle (L), 1+ ankle (R) Reflexes: flexor plantar (L), flexor plantar (R); extensor plantar (L), extensor plantar (R) Stance: normal Objective Extubated with eyes open, tracking with eyes- he He is KAT x 4 and some to command with full strength- Pupils are briskly reactive and PERRL - His exam is non focal Has BIPAP mask on now Impression/Recommendations Problems: (1) Acute metabolic encephalopathy (2) Acute encephalopathy (3) Drug abuse (4) COPD (chronic obstructive pulmonary disease) (5) Diabetes mellitus (6) Anemia (7) Acute respiratory failure (8) Seizure disorder (9) UTI (urinary tract infection) (10) Prostate cancer, primary, 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 site (11) Iron deficiency anemia (12) Acute renal failure (ARF) Status: deteriorating Recommendations Continue AEDs- doses stable at this time. Gordon 1500mg BID Valproate 1000mg BID Monitor LFTs intermittently. Q4 hr neuro obs Maintain normoglycemia with ISS Maintain normothermia Optimize oxygenation PT Intense Chest physiotherapy? Follow up causes of anemia- IRON Replete/ Replace lytes as needed: Potassium/ Magnesium etc Replace IRON - IV Discuss enteral feeding needs Kenia Pompa N.P. Jul 26, 2018 23:43
[2018-07-27] VITALS (7 sets, daily range): BP systolic 122–145; BP diastolic 45–84
[2018-07-27] MEDS: Valproate Sodium INJ 1,000 MG in D5W 55 ML IV SCH ×2 (00:46→14:17)
[2018-07-27] MEDS: ceFAZolin sod 1 GM in D5W 55 ML IVPB SCH ×3 (02:28→17:25)
[2018-07-27 04:07] LABS: BASOPHILS % (AUTO) 1.1 % (0.0-2.0); EOSINOPHILS % (AUTO) 3.4 % (0.0-3.0); HEMATOCRIT 32.3 % (42.0-52.0); HEMOGLOBIN 10.7 G/DL (14.2-18.0); LYMPHOCYTES % (AUTO) 21.9 % (20.0-45.0); MEAN CORPUSCULAR VOLUME 87 FL (80-99); MONOCYTES % (AUTO) 13.7 % (1.0-10.0); NEUTROPHILS % (AUTO) 59.9 % (45.0-75.0); PLATELET COUNT 166 K/UL (150-450); RED BLOOD COUNT 3.69 M/UL (4.70-6.10); RED CELL DISTRIBUTION WIDTH 13.1 % (11.6-14.8); WHITE BLOOD COUNT 4.6 K/UL (4.8-10.8)
[2018-07-27 04:22] LABS: ANION GAP 9 mmol/L (5-15); BLOOD UREA NITROGEN 3 mg/dL (7-18); CALCIUM 8.5 MG/DL (8.5-10.1); CARBON DIOXIDE 26 MMOL/L (21-32); CHLORIDE 108 MMOL/L (98-107); CREATININE 0.8 MG/DL (0.55-1.30); SODIUM 143 MMOL/L (136-145)
[2018-07-27] MEDS: Heparin 25,000u/D5W 500ml 500 ML IV SCH (04:57)
[2018-07-27] MEDS: NovoLOG Insulin Flexpen SUBQ SCH ×5 (06:00→23:30)
--- NOTE | 2018-07-27 07:22 | NUR ---
HAND-OFF: Report given to RONI Thakkar.
--- NOTE | 2018-07-27 08:15 | NUR ---
NURSE NOTES: received pt in the bed, awake, confused, vital signs stable, no co pain, no SOB, o2 2l via nasal canula, pt on Heparin drip 16u/kg, next PTT at 1100, Sims catheter with yellow urine, PICC line on left upper arm, dressing dry and intact, RT arm swollen, soft wrist restrains for safety, bed in low position, HOB elevated.
[2018-07-27] MEDS: levETIRAcetam 1,000mg/NS100ml 100 ML IVPB SCH ×2 (09:05→21:47)
--- NOTE | 2018-07-27 09:36 | General Progress Note ---
Assessment/Plan Problem List: (1) Iron deficiency anemia ICD Codes: D50.9 - Iron deficiency anemia SNOMED: 58216175 (2) Prostate cancer, primary, 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 site ICD Codes: C61 - Prostate cancer, primary, 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 site SNOMED: 973279022 (3) Seizure disorder ICD Codes: G40.909 - Epilepsy, unspecified, not intractable, without status epilepticus SNOMED: 531760602 (4) Anemia ICD Codes: D64.9 - Anemia, unspecified SNOMED: 147320346 (5) Diabetes mellitus ICD Codes: E11.9 - Type 2 diabetes mellitus without complications SNOMED: 10585548 (6) Acute encephalopathy ICD Codes: G93.40 - Encephalopathy, unspecified SNOMED: 5751628 (7) Severe malnutrition ICD Codes: E43 - Unspecified severe protein-calorie malnutrition SNOMED: 92386293 Status: deteriorating Assessment/Plan: needs PEG unable to reach family for consent consult social secretary patient has been pulling out his NGT speech eval appreciated recommend Psych eval for competency Subjective ROS Limited/Unobtainable: No Allergies: Coded Allergies: HALOPERIDOL (Verified Allergy, Mild, [place] really bad, 07/05/16) Makes him irritable. THIORIDAZINE (Verified Allergy, Mild, [place] really bad, 07/05/16) Makes him violent TRAZODONE (Verified Allergy, Mild, [place] really bad, 07/05/16) Too strong; inability to move. Uncoded Allergies: PSYCHOTROPIC MEDICATION (Allergy, Mild, 08/13/14) Objective Last 24 Hour Vital Signs Date Time Temp Pulse Resp B/P (MAP) Pulse Ox O2 Delivery O2 Flow Rate FiO2 07/27/18 08:00 2.0 07/27/18 08:00 97.3 61 19 123/45 100 Bi-pap 07/27/18 04:45 67 18 100 Facial 30 07/27/18 04:00 97.9 62 20 145/73 99 Bi-pap 07/27/18 04:00 62 07/27/18 04:00 30 07/27/18 03:30 69 16 99 Facial 30 07/27/18 01:12 72 17 98 Facial 30 07/27/18 00:00 30 07/27/18 00:00 97.9 62 20 125/83 99 Bi-pap 07/27/18 00:00 62 07/26/18 23:09 77 18 99 Facial 30 07/26/18 21:00 Nasal Cannula 2.0 07/26/18 20:00 2.0 07/26/18 20:00 98.6 62 20 156/72 99 Nasal Cannula 2.0 07/26/18 20:00 62 07/26/18 19:24 98 Nasal Cannula 2.0 28 07/26/18 16:00 67 07/26/18 16:00 98.5 68 19 125/61 98 Bi-pap 2.0 07/26/18 16:00 2.0 07/26/18 12:00 2.0 07/26/18 12:00 96.6 59 20 133/61 100 Bi-pap 30 07/26/18 12:00 72 Intake and Output 07/26/18 07/27/18 19:00 07:00 Intake Total 653.12 ml 27.76 ml Output Total 240 ml 1000 ml Balance 413.12 ml -972.24 ml Intake Oral 0 ml IV Total 653.12 ml 27.76 ml Output Urine Total 240 ml 1000 ml Laboratory Tests 07/27/18 03:58: White Blood Count 4.6L, Red Blood Count 3.69L, Hemoglobin 10.7L, Hematocrit 32.3L, Mean Corpuscular Volume 87, Mean Corpuscular Hemoglobin 29.1, Mean Corpuscular Hemoglobin Concent 33.3, Red Cell Distribution Width 13.1, Platelet Count 166, Mean Platelet Volume 4.0L, Neutrophils (%) (Auto) 59.9, Lymphocytes ( %) (Auto) 21.9, Monocytes (%) (Auto) 13.7H, Eosinophils (%) (Auto) 3.4H, Basophils (%) (Auto) 1.1, Activated Partial Thromboplast Time 96H, Sodium Level 143, Potassium Level 3.0L, Chloride Level 108H, Carbon Dioxide Level 26, Anion Gap 9, Blood Urea Nitrogen 3L, Creatinine 0.8, Estimat Glomerular Filtration Rate , Glucose Level 103, Calcium Level 8.5 Height (Feet): 6 Weight (Pounds): 172 General Appearance: alert EENT: normal ENT inspection Neck: supple Cardiovascular: normal rate Respiratory/Chest: decreased breath sounds Abdomen: normal bowel sounds, non tender, soft Extremities: non-tender Vosoghi,Mu MD Jul 27, 2018 09:36
--- NOTE | 2018-07-27 09:40 | Infectious Diseases Prog Note ---
Assessment/Plan Assessment/Plan 72 yo male with PMHx of TBI, Seizure disorder, COPD, Encephalopathy, DM, HTN, CVA, Renal failure, CAD and Dysphagia s/p Peg who was brought to the ED on with intractable seizures. Respiratory failure Most probably due to seizures Active PNA unlikely Sputum Cx 07/12/18 - NF Bacteriuria UTI unlikely UCx - Staph h. S/P 2 days Vancomycin DVT right leg On Heparin TBI Seizure disorder COPD Encephalopathy DM HTN CVA Renal failure CAD Dysphagia s/p Peg Extubated 07/19/18 PLAN - Continue Cefazolin #6 / 7 On D/C could switch to Augmentin 875 BID to finish the course 07/15/18 S/P Vancomycin and Zosyn #2 - Supportive care - Monitor CBC and Temps Subjective Allergies: Coded Allergies: HALOPERIDOL (Verified Allergy, Mild, [place] really bad, 07/05/16) Makes him irritable. THIORIDAZINE (Verified Allergy, Mild, [place] really bad, 07/05/16) Makes him violent TRAZODONE (Verified Allergy, Mild, [place] really bad, 07/05/16) Too strong; inability to move. Uncoded Allergies: PSYCHOTROPIC MEDICATION (Allergy, Mild, 08/13/14) Subjective Afebrile No Leukocytosis Objective Vital Signs Last 24 Hour Vital Signs Date Time Temp Pulse Resp B/P (MAP) Pulse Ox O2 Delivery O2 Flow Rate FiO2 07/27/18 08:00 2.0 07/27/18 08:00 97.3 61 19 123/45 100 Bi-pap 07/27/18 04:45 67 18 100 Facial 30 07/27/18 04:00 97.9 62 20 145/73 99 Bi-pap 07/27/18 04:00 62 07/27/18 04:00 30 07/27/18 03:30 69 16 99 Facial 30 07/27/18 01:12 72 17 98 Facial 30 07/27/18 00:00 30 07/27/18 00:00 97.9 62 20 125/83 99 Bi-pap 07/27/18 00:00 62 07/26/18 23:09 77 18 99 Facial 30 07/26/18 21:00 Nasal Cannula 2.0 07/26/18 20:00 2.0 07/26/18 20:00 98.6 62 20 156/72 99 Nasal Cannula 2.0 07/26/18 20:00 62 07/26/18 19:24 98 Nasal Cannula 2.0 28 07/26/18 16:00 67 07/26/18 16:00 98.5 68 19 125/61 98 Bi-pap 2.0 07/26/18 16:00 2.0 07/26/18 12:00 2.0 07/26/18 12:00 96.6 59 20 133/61 100 Bi-pap 30 07/26/18 12:00 72 Height (Feet): 6 Weight (Pounds): 172 Objective HEENT: DMM, PERRL LUNGS: CTAB, No W/C CARDS: RRR, S1, S2, ABD: Soft, ND SKIN: Warm/dry, No rashes Laboratory Tests Test 07/27/18 03:58 White Blood Count 4.6 K/UL (4.8-10.8) L Red Blood Count 3.69 M/UL (4.70-6.10) L Hemoglobin 10.7 G/DL (14.2-18.0) L Hematocrit 32.3 % (42.0-52.0) L Mean Corpuscular Volume 87 FL (80-99) Mean Corpuscular Hemoglobin 29.1 PG (27.0-31.0) Mean Corpuscular Hemoglobin Concent 33.3 G/DL (32.0-36.0) Red Cell Distribution Width 13.1 % (11.6-14.8) Platelet Count 166 K/UL (150-450) Mean Platelet Volume 4.0 FL (6.5-10.1) L Neutrophils (%) (Auto) 59.9 % (45.0-75.0) Lymphocytes (%) (Auto) 21.9 % (20.0-45.0) Monocytes (%) (Auto) 13.7 % (1.0-10.0) H Eosinophils (%) (Auto) 3.4 % (0.0-3.0) H Basophils (%) (Auto) 1.1 % (0.0-2.0) Activated Partial Thromboplast Time 96 SEC (23-33) H Sodium Level 143 MMOL/L (136-145) Potassium Level 3.0 MMOL/L (3.5-5.1) L Chloride Level 108 MMOL/L (98-107) H Carbon Dioxide Level 26 MMOL/L (21-32) Anion Gap 9 mmol/L (5-15) Blood Urea Nitrogen 3 mg/dL (7-18) L Creatinine 0.8 MG/DL (0.55-1.30) Estimat Glomerular Filtration Rate mL/min (>60) Glucose Level 103 MG/DL (74-106) Calcium Level 8.5 MG/DL (8.5-10.1) Current Medications Medications (Trade) Dose Ordered Sig/Jesi Route PRN Reason Start Time Stop Time Status Last Admin Dose Admin Acetaminophen (Tylenol) 650 mg Q6H PRN NG FOR TEMP > 100 OR PAIN 1-07/26/18 04:30 08/19/18 04:29 Cefazolin Sodium 1 gm/Dextrose 55 ml @ 110 mls/hr Q8H IVPB 07/26/18 10:00 07/28/18 17:59 07/27/18 02:28 Chlorhexidine Gluconate (Candie-Hex 2%) 1 applic DAILY@2000 TOPIC 07/26/18 20:00 08/15/18 19:59 07/26/18 21:00 Dextrose (Dextrose 50%) 25 ml Q30M PRN IV Hypoglycemia 07/26/18 04:15 08/12/18 01:14 Dextrose (Dextrose 50%) 50 ml Q30M PRN IV Hypoglycemia 07/26/18 04:15 08/12/18 01:14 Dextrose/Sodium Chloride 1,000 ml @ 50 mls/hr Q20H IV 07/26/18 04:00 08/20/18 06:14 07/26/18 19:36 Famotidine (Pepcid I.v.) 20 mg Q12HR IVP 07/26/18 09:00 08/12/18 08:59 07/27/18 09:05 Heparin Sodium/ Dextrose 500 ml @ 24.676 mls/ hr ADJUST PER PROTOCOL IV 07/27/18 04:45 08/24/18 06:59 07/27/18 04:57 Insulin Aspart (NovoLOG) EVERY 6 HOURS SUBQ 07/26/18 06:00 08/12/18 12:29 Levetiracetam 100 ml @ 400 mls/hr Q12H IVPB 07/26/18 09:15 7/1/19 21:14 07/26/18 21:33 Levetiracetam 100 ml @ 400 mls/hr Q12HR IVPB 07/26/18 09:00 08/13/18 20:59 07/27/18 09:05 Valproate Sodium 1000 mg/Dextrose 65 ml @ 32.5 mls/hr Q12HR@0100,1300 IV 07/26/18 13:00 08/13/18 12:59 07/27/18 00:46 Matteo Hunt MD Jul 27, 2018 09:40
[2018-07-27] MEDS: levETIRAcetam 500mg/NS100ml 100 ML IVPB SCH ×2 (09:44→22:02)
--- NOTE | 2018-07-27 13:32 | Pulmonology Progress Note ---
Assessment/Plan Problems: (1) Acute respiratory failure (2) Acute metabolic encephalopathy (3) COPD (chronic obstructive pulmonary disease) (4) Acute renal failure (ARF) (5) Lumbar spondylosis (6) posttraumatic seizure disorder (7) Diabetes mellitus (8) Anemia (9) Chronic low back pain (10) Seizure disorder Assessment/Plan doing better doenst want any artificial feeding on Nasal [place] now respiratory treatment check electrolytes swallow study sliding scale diabetic diet symptomatic treatment dvt prophylaxis. Subjective ROS Limited/Unobtainable: No Constitutional: Reports: no symptoms HEENT: Repors: no symptoms Respiratory: Reports: no symptoms Allergies: Coded Allergies: HALOPERIDOL (Verified Allergy, Mild, [place] really bad, 07/05/16) Makes him irritable. THIORIDAZINE (Verified Allergy, Mild, [place] really bad, 07/05/16) Makes him violent TRAZODONE (Verified Allergy, Mild, [place] really bad, 07/05/16) Too strong; inability to move. Uncoded Allergies: PSYCHOTROPIC MEDICATION (Allergy, Mild, 08/13/14) Objective Last 24 Hour Vital Signs Date Time Temp Pulse Resp B/P (MAP) Pulse Ox O2 Delivery O2 Flow Rate FiO2 07/27/18 12:00 2.0 07/27/18 12:00 98.1 59 19 122/61 100 Bi-pap 07/27/18 09:00 Nasal Cannula 2.0 07/27/18 08:00 2.0 07/27/18 08:00 97.3 61 19 123/45 100 Bi-pap 07/27/18 08:00 62 07/27/18 04:45 67 18 100 Facial 30 07/27/18 04:00 97.9 62 20 145/73 99 Bi-pap 07/27/18 04:00 62 07/27/18 04:00 30 07/27/18 03:30 69 16 99 Facial 30 07/27/18 01:12 72 17 98 Facial 30 07/27/18 00:00 30 07/27/18 00:00 97.9 62 20 125/83 99 Bi-pap 07/27/18 00:00 62 07/26/18 23:09 77 18 99 Facial 30 07/26/18 21:00 Nasal Cannula 2.0 07/26/18 20:00 2.0 07/26/18 20:00 98.6 62 20 156/72 99 Nasal Cannula 2.0 07/26/18 20:00 62 07/26/18 19:24 98 Nasal Cannula 2.0 28 07/26/18 16:00 67 07/26/18 16:00 98.5 68 19 125/61 98 Bi-pap 2.0 07/26/18 16:00 2.0 Intake and Output 07/26/18 07/27/18 19:00 07:00 Intake Total 653.12 ml 52.436 ml Output Total 240 ml 1000 ml Balance 413.12 ml -947.564 ml Intake Oral 0 ml 0 ml IV Total 653.12 ml 52.436 ml Output Urine Total 240 ml 1000 ml General Appearance: WD/WN, no acute distress HEENT: anicteric Respiratory/Chest: lungs clear, normal breath sounds Cardiovascular: normal peripheral pulses, regular rhythm Abdomen: no organomegaly Genitourinary: normal external genitalia Skin: no rash Laboratory Tests 07/27/18 03:58: White Blood Count 4.6L, Red Blood Count 3.69L, Hemoglobin 10.7L, Hematocrit 32.3L, Mean Corpuscular Volume 87, Mean Corpuscular Hemoglobin 29.1, Mean Corpuscular Hemoglobin Concent 33.3, Red Cell Distribution Width 13.1, Platelet Count 166, Mean Platelet Volume 4.0L, Neutrophils (%) (Auto) 59.9, Lymphocytes ( %) (Auto) 21.9, Monocytes (%) (Auto) 13.7H, Eosinophils (%) (Auto) 3.4H, Basophils (%) (Auto) 1.1, Activated Partial Thromboplast Time 96H, Sodium Level 143, Potassium Level 3.0L, Chloride Level 108H, Carbon Dioxide Level 26, Anion Gap 9, Blood Urea Nitrogen 3L, Creatinine 0.8, Estimat Glomerular Filtration Rate , Glucose Level 103, Calcium Level 8.5 07/27/18 11:00: Activated Partial Thromboplast Time 77H Current Medications Medications (Trade) Dose Ordered Sig/Jesi Route PRN Reason Start Time Stop Time Status Last Admin Dose Admin Acetaminophen (Tylenol) 650 mg Q6H PRN NG FOR TEMP > 100 OR PAIN 1-6 07/26/18 04:30 08/19/18 04:29 Cefazolin Sodium 1 gm/Dextrose 55 ml @ 110 mls/hr Q8H IVPB 07/26/18 10:00 07/28/18 17:59 07/27/18 10:32 Chlorhexidine Gluconate (Candie-Hex 2%) 1 applic DAILY@2000 TOPIC 07/26/18 20:00 08/15/18 19:59 07/26/18 21:00 Dextrose (Dextrose 50%) 25 ml Q30M PRN IV Hypoglycemia 07/26/18 04:15 08/12/18 01:14 Dextrose (Dextrose 50%) 50 ml Q30M PRN IV Hypoglycemia 07/26/18 04:15 08/12/18 01:14 Dextrose/Sodium Chloride 1,000 ml @ 50 mls/hr Q20H IV 07/26/18 04:00 08/20/18 06:14 07/26/18 19:36 Famotidine (Pepcid I.v.) 20 mg Q12HR IVP 07/26/18 09:00 08/12/18 08:59 07/27/18 09:05 Heparin Sodium/ Dextrose 500 ml @ 24.676 mls/ hr ADJUST PER PROTOCOL IV 07/27/18 04:45 08/24/18 06:59 07/27/18 04:57 Insulin Aspart (NovoLOG) EVERY 6 HOURS SUBQ 07/26/18 06:00 08/12/18 12:29 Levetiracetam 100 ml @ 400 mls/hr Q12H IVPB 07/26/18 09:15 08/13/18 21:14 07/27/18 09:44 Levetiracetam 100 ml @ 400 mls/hr Q12HR IVPB 07/26/18 09:00 08/13/18 20:59 07/27/18 09:05 Valproate Sodium 1000 mg/Dextrose 65 ml @ 32.5 mls/hr Q12HR@0100,1300 IV 07/26/18 13:00 08/13/18 12:59 07/27/18 00:46 Maria E Shine MD Jul 27, 2018 13:32
--- NOTE | 2018-07-27 13:32 | NUR ---
ST NOTE: ST WEEKLY AND SWALLOW STATUS: ST WEEKLY: PT DID NOT MEET PO INTAKE GOALS. NURSING STAFF MET ASPIRATION PRECAUTIONS GOALS. CONTINUE SKILLED ST SERVICE. CURRENT STATUS: PT SEEN AT BEDSIDE IN PM. ALERT, COOPERATIVE. PT WITH NC(2L), OXYGEN LEVEL: 100%. ADJUST PT AT UPRIGHT POSITION. PT SEEN TO DISCUSS RE: PEG PLACEMENT AND ASPIRATION RISK IF PO IS GIVEN. DISCUSSED AND EDUCATED PT THAT PT IS AT HIGH RISK FOR ASPIRATION IF PO IS GIVEN. PT UNDERSTOOD THE INFORMATION GIVEN. HOWEVER, PT REFUSED PEG PLACEMENT AND WOULD LIKE TO EAT/DRINK BY MOUTH. GIVEN PO TRIALS: NECTAR THICK(TSP X 4) MILDLY INCREASED ORAL TRANSIT TIME(3 SECONDS) UNTIL PT INITIATED PHARYNGEAL SWALLOW, REDUCED LARYNGEAL ELEVATION, MILD WET VOCAL QUALITY WAS NOTED. ORAL SUCTION COMPLETED. GIVEN PT REFUSED PEG PLACEMENT, PO SHOULD BE GIVEN FOR QUALITY OF LIFE. DIET IS RECOMMENDED LIQUIFIED PUREED, LIKE NECTAR THICK SOUP CONSISTENCY WITH NECTAR THICK LIQUIDS WITH STRICT ASPIRATION PRECAUTIONS AT 1/2 TEASPOON LEVEL. D/W GAUTAM BROWN MD, DR. VAZQUEZ AND N.P., REZA. POSTED ASPIRATION PRECAUTIONS SIGN.
--- NOTE | 2018-07-27 13:54 | NUR ---
NURSE NOTES: K 3.0, dr. Rl velasquez.
--- NOTE | 2018-07-27 17:10 | Diagnostic Imaging Report ---
Indications: Dysphagia Technique: Patient ingested multiple substances under the supervision of speech pathology. Video fluoroscopic recording performed. Total fluoroscopy time 311.6 seconds. Total dose area product [id number] mGycm2 Total number of images-9 Comparison: none Findings: With ingestion of thin liquid barium, there is deep supraglottic laryngeal penetration and aspiration which is silent. There is considerable residual after swallowing. With ingestion of nectar thick liquid barium, there is deep pharyngeal penetration and occasional aspiration resulting in coughing. Considerable residual is seen in the vallecula after swallowing. Penetration and aspiration are also seen with honey thick liquid barium. Impression: Positive for deep penetration and aspiration of multiple substances, as described Please refer to speech pathology report for more detailed analysis
--- NOTE | 2018-07-27 19:05 | Neurology Progress Note ---
Interim History Interim History ROS Limited/Unobtainable: No Complaints: AMS Events: Afebrile, nutritionally deficient, iron deficient Interim History This visit was performed on July 27, [address] Abad Iniguez. Objective Physical Exam Last Vital Signs Date Time Temp Pulse Resp B/P (MAP) Pulse Ox O2 Delivery O2 Flow Rate FiO2 07/27/18 16:00 66 07/27/18 16:00 2.0 07/27/18 16:00 97.7 20 130/62 100 Nasal Cannula 07/27/18 04:45 30 Laboratory Tests Test 07/27/18 03:58 07/27/18 11:00 White Blood Count 4.6 K/UL (4.8-10.8) L Red Blood Count 3.69 M/UL (4.70-6.10) L Hemoglobin 10.7 G/DL (14.2-18.0) L Hematocrit 32.3 % (42.0-52.0) L Mean Corpuscular Volume 87 FL (80-99) Mean Corpuscular Hemoglobin 29.1 PG (27.0-31.0) Mean Corpuscular Hemoglobin Concent 33.3 G/DL (32.0-36.0) Red Cell Distribution Width 13.1 % (11.6-14.8) Platelet Count 166 K/UL (150-450) Mean Platelet Volume 4.0 FL (6.5-10.1) L Neutrophils (%) (Auto) 59.9 % (45.0-75.0) Lymphocytes (%) (Auto) 21.9 % (20.0-45.0) Monocytes (%) (Auto) 13.7 % (1.0-10.0) H Eosinophils (%) (Auto) 3.4 % (0.0-3.0) H Basophils (%) (Auto) 1.1 % (0.0-2.0) Activated Partial Thromboplast Time 96 SEC (23-33) H 77 SEC (23-33) H Sodium Level 143 MMOL/L (136-145) Potassium Level 3.0 MMOL/L (3.5-5.1) L Chloride Level 108 MMOL/L (98-107) H Carbon Dioxide Level 26 MMOL/L (21-32) Anion Gap 9 mmol/L (5-15) Blood Urea Nitrogen 3 mg/dL (7-18) L Creatinine 0.8 MG/DL (0.55-1.30) Estimat Glomerular Filtration Rate mL/min (>60) Glucose Level 103 MG/DL (74-106) Calcium Level 8.5 MG/DL (8.5-10.1) General: well developed, well nourished Head: normocophalic Neck: no rigidity EENT: benign Neurologic Exam Mental Status: awake, alert, other Speech: other Language: other Cranial Nerve II: fundus normal, visual dodd, no papilledema Cranial Nerves III, IV, : PERRLA, EOMI Cranial Nerve V: normal facial sensations, temporales function normal, masseters function normal, pterygoids function normal, other Cranial Nerve VII: no facial asymmetry, normal facial expressions Cranial Nerve VIII: normal hearing, no nystagmus Cranial Nerve IX: normal palate elevation, gag response Cranial Nerve XI: SCM symmetric, other Cranial Nerve XII: tongue midline, no tongue atrophy/fasciculations, other Motor System: normal muscle tone, strength 5/5, no involuntary movement, no muscle wasting Sensory: normal pinprick, normal light touch, other Coordination: other Deep Tendon Reflexes: 1+ bicep (L), 1+ bicep (R), 1+ tricep (L), 1+ tricep (R) , 1+ brachioradialis (L), 1+ brachioradialis (R), 1+ knee (L), 1+ knee (R), 1+ ankle (L), 1+ ankle (R) Reflexes: flexor plantar (L), flexor plantar (R); extensor plantar (L), extensor plantar (R) Stance: normal Objective Awake, alert eyes open, tracking with eyes- he He is KAT x 4 and some to command with full strength- Pupils are briskly reactive and PERRL - His exam is non focal Has BIPAP mask on now Impression/Recommendations Problems: (1) Acute metabolic encephalopathy (2) Acute encephalopathy (3) Drug abuse (4) COPD (chronic obstructive pulmonary disease) (5) Diabetes mellitus (6) Anemia (7) Acute respiratory failure (8) Seizure disorder (9) UTI (urinary tract infection) (10) Prostate cancer, primary, 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 site (11) Iron deficiency anemia (12) Acute renal failure (ARF) Status: stable, progressing, tolerating diet Recommendations Continue AEDs- doses stable at this time. Keppra 1500mg BID Valproate 1000mg BID Monitor LFTs intermittently. Q4 hr neuro obs Maintain normoglycemia with ISS Maintain normothermia Optimize oxygenation PT Intense Chest physiotherapy? Follow up causes of anemia- IRON Replete/ Replace lytes as needed: Potassium/ Magnesium etc Replace IRON - IV Discuss enteral feeding needs EEG ordered to establish that there are no subclinical seizures at this time. Kenia Pompa N.P. Jul 27, 2018 19:05
--- NOTE | 2018-07-27 19:05 | Internal Med Progress Note ---
Subjective Physician Name Will Mejía Attending Physician Will Mejía MD Current Medications Medications (Trade) Dose Ordered Sig/Jesi Route PRN Reason Start Time Stop Time Status Last Admin Dose Admin Acetaminophen (Tylenol) 650 mg Q6H PRN NG FOR TEMP > 100 OR PAIN 1-6 07/26/18 04:30 08/19/18 04:29 Cefazolin Sodium 1 gm/Dextrose 55 ml @ 110 mls/hr Q8H IVPB 07/26/18 10:00 07/28/18 17:59 07/27/18 17:25 Chlorhexidine Gluconate (Candie-Hex 2%) 1 applic DAILY@2000 TOPIC 07/26/18 20:00 08/15/18 19:59 07/26/18 21:00 Dextrose (Dextrose 50%) 25 ml Q30M PRN IV Hypoglycemia 07/26/18 04:15 08/12/18 01:14 Dextrose (Dextrose 50%) 50 ml Q30M PRN IV Hypoglycemia 07/26/18 04:15 08/12/18 01:14 Dextrose/Sodium Chloride 1,000 ml @ 50 mls/hr Q20H IV 07/26/18 04:00 08/20/18 06:14 07/26/18 19:36 Famotidine (Pepcid I.v.) 20 mg Q12HR IVP 07/26/18 09:00 08/12/18 08:59 07/27/18 09:05 Heparin Sodium/ Dextrose 500 ml @ 24.676 mls/ hr ADJUST PER PROTOCOL IV 07/27/18 04:45 08/24/18 06:59 07/27/18 04:57 Insulin Aspart (NovoLOG) EVERY 6 HOURS SUBQ 07/26/18 06:00 08/12/18 12:29 Levetiracetam 100 ml @ 400 mls/hr Q12H IVPB 07/26/18 09:15 08/13/18 21:14 07/27/18 09:44 Levetiracetam 100 ml @ 400 mls/hr Q12HR IVPB 07/26/18 09:00 08/13/18 20:59 07/27/18 09:05 Spironolactone (Aldactone) 25 mg EVERY 12 HOURS ORAL 07/27/18 21:00 08/26/18 20:59 Valproate Sodium 1000 mg/Dextrose 65 ml @ 32.5 mls/hr Q12HR@0100,1300 IV 07/26/18 13:00 08/13/18 12:59 07/27/18 14:17 Allergies: Coded Allergies: HALOPERIDOL (Verified Allergy, Mild, [place] really bad, 07/05/16) Makes him irritable. THIORIDAZINE (Verified Allergy, Mild, [place] really bad, 07/05/16) Makes him violent TRAZODONE (Verified Allergy, Mild, [place] really bad, 07/05/16) Too strong; inability to move. Uncoded Allergies: PSYCHOTROPIC MEDICATION (Allergy, Mild, 08/13/14) Subjective Awake, alert, responsive but confuse. Objective Last Vital Signs Date Time Temp Pulse Resp B/P (MAP) Pulse Ox O2 Delivery O2 Flow Rate FiO2 07/27/18 16:00 66 07/27/18 16:00 2.0 07/27/18 16:00 97.7 20 130/62 100 Nasal Cannula 07/27/18 04:45 30 Laboratory Tests Test 07/27/18 03:58 07/27/18 11:00 White Blood Count 4.6 K/UL (4.8-10.8) L Red Blood Count 3.69 M/UL (4.70-6.10) L Hemoglobin 10.7 G/DL (14.2-18.0) L Hematocrit 32.3 % (42.0-52.0) L Mean Corpuscular Volume 87 FL (80-99) Mean Corpuscular Hemoglobin 29.1 PG (27.0-31.0) Mean Corpuscular Hemoglobin Concent 33.3 G/DL (32.0-36.0) Red Cell Distribution Width 13.1 % (11.6-14.8) Platelet Count 166 K/UL (150-450) Mean Platelet Volume 4.0 FL (6.5-10.1) L Neutrophils (%) (Auto) 59.9 % (45.0-75.0) Lymphocytes (%) (Auto) 21.9 % (20.0-45.0) Monocytes (%) (Auto) 13.7 % (1.0-10.0) H Eosinophils (%) (Auto) 3.4 % (0.0-3.0) H Basophils (%) (Auto) 1.1 % (0.0-2.0) Activated Partial Thromboplast Time 96 SEC (23-33) H 77 SEC (23-33) H Sodium Level 143 MMOL/L (136-145) Potassium Level 3.0 MMOL/L (3.5-5.1) L Chloride Level 108 MMOL/L (98-107) H Carbon Dioxide Level 26 MMOL/L (21-32) Anion Gap 9 mmol/L (5-15) Blood Urea Nitrogen 3 mg/dL (7-18) L Creatinine 0.8 MG/DL (0.55-1.30) Estimat Glomerular Filtration Rate mL/min (>60) Glucose Level 103 MG/DL (74-106) Calcium Level 8.5 MG/DL (8.5-10.1) Intake and Output 07/26/18 07/27/18 18:59 06:59 Intake Total 703.12 ml 27.76 ml Output Total 240 ml 1000 ml Balance 463.12 ml -972.24 ml Intake Oral 0 ml IV Total 703.12 ml 27.76 ml Output Urine Total 240 ml 1000 ml Objective General: No acute distress, awake and Responsive, confuse. HEENT: NCAT, sclera anicteric, PERRL, EOMI. Neck: Supple, no significant jugular venous distention, Lungs: Fair inspiratory effort, decreased air at the bases no Wheeze or Rales. Heart: Regular rate and rhythm, normal S1/S2, no murmur. Abdomen: soft, nontender, nondistended. Normoactive bowel sounds. : Sims Cath. Extremities: No Cyanosis , clubbing, RUE edema, Piccline on LUE Neuro: A&O x 2, Able to move all extremities Skin: warm, no rash. Assessment/Plan Assessment/Plan (1) Acute metabolic encephalopathy (2) Acute encephalopathy (3) Drug abuse (4) COPD (chronic obstructive pulmonary disease) (5) Diabetes mellitus (6) Anemia (7) Acute respiratory failure (8) Seizure disorder (9) UTI (urinary tract infection) (10) Prostate cancer, primary, 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 site (11) Iron deficiency anemia (12) Acute renal failure (ARF) PLAN: Monitor laboratory VT prophylaxis: heparin drip Psych consult for capacity evaluation Follow-up with GI as well as critical critical care recommendation PT mobility CODE STATUS full code Abx: Ancef IV Refuse PEG placement, unable to reach family members Will Mejía MD Jul 27, 2018 19:05
--- NOTE | 2018-07-27 19:27 | NUR ---
NURSE NOTES:Patient received from DOLORES Shankar Patient lying in bed and confused . no sob noted . patient on O2 2L via n/c in placed . patient on Heparin drip 16 U / KG next PTT AT 04:00 AM PICC LINE ON left arm with D51/2 NS AT 50 CC /HR. Infusing well right arm swollen noted . bilateral arm on soft wrist restrains .safety /fall implemented . HOD elevated . Sims catheter draining to yellow urine . call light within reach . bed in low position at all times . will continue to monitor. Addendum: 07/28/18 at 0019 by NANCY QUEZADA LVN NURSE NOTES : Patient repositioned every 2 hrs for comfort . HOB elevated . will continue to monitor.
--- NOTE | 2018-07-27 19:27 | NUR ---
HAND-OFF: Report given to NANCY YOUNGBLOOD.
[2018-07-27] MEDS: D5 1/2NS 1,000 ML IV SCH (20:53)
[2018-07-27] MEDS: Dyna-Hex 2% Top Sol 2oz TOPIC SCH (20:53)
[2018-07-27] MEDS: Spironolactone 25mg tab ORAL SCH (20:58)
--- NOTE | 2018-07-27 22:00 | NUR ---
HAND-OFF: Report given to GALEN Shankar
--- NOTE | 2018-07-27 23:10 | NUR ---
NURSE NOTES: Pt has an order for Aldactone 25mg PO. Notified Dr. Shine that pt failed swallow eval and ST advised not to give PO meds. MD said to hold medication.
[2018-07-28] MEDS: Valproate Sodium INJ 1,000 MG in D5W 55 ML IV SCH ×2 (00:38→13:15)
[2018-07-28] MEDS: ceFAZolin sod 1 GM in D5W 55 ML IVPB SCH ×2 (02:05→10:26)
[2018-07-28 04:00] VITALS: BP 116/67
[2018-07-28] MEDS: Heparin 25,000u/D5W 500ml 500 ML IV SCH (05:41)
[2018-07-28] MEDS: NovoLOG Insulin Flexpen SUBQ SCH ×3 (05:41→17:05)
--- NOTE | 2018-07-28 07:44 | NUR ---
HAND-OFF: Report given to Stacy TAMAYO. Patient in stable condition, plan of care endorsed.
--- NOTE | 2018-07-28 07:45 | Consultation ---
DATE OF CONSULTATION: 07/28/2018 HISTORY OF PRESENT ILLNESS: The patient is a 72-year-old male with a history of multiple medical problems including anemia, depression, substance use disorder, prostate cancer, UTI, chronic low back pain, seizure disorder, and lumbar spondylosis. The patient is confused and disoriented. He is unable to provide any history. The patient is having memory impairment. He is unable to understand, process, communicate, nor appreciate the informations given to him in regard to his medical condition. The patient lives in [facility]. The patient apparently had seizure prior to the admission. In the hospital, he pulled out his NG-tube, requires G-tube per gastrointestinal. The patient is unable to understand the importance of the urgency of the procedure. PAST PSYCHIATRIC HISTORY: Depression. MEDICATIONS: He is on psychotropic medications including trazodone. PAST MEDICAL HISTORY: As above. ALLERGIES: Haldol, and tramadol. SUBSTANCE ABUSE HISTORY: The patient has a history of past substance use disorder. MENTAL STATUS EXAMINATION: The patient is alert, confused, and disoriented. Mood is anxious. Affect is constricted, congruent with mood. Thought process is concrete. Thought content, no suicidal or homicidal ideation. Cognition is impaired. Insight and judgment nonexistent. ASSESSMENT: [place] I Major depressive disorder. Dementia. [place] II Deferred. [place] III As above. [place] IV Low. [place] V 20. PLAN: 1. The patient lacks capacity to make decision for G-tube replacement. 2. If the GI doctor the necessity of G-tube placement, the procedure needs to be happening as soon as possible. 3. If the patient's anxiety persists, we will restart the patient on BuSpar for anxiety. We will continue to follow. Rayna Yu M.D. DR: JORGE LUIS JOB#: [id number] CC:
--- NOTE | 2018-07-28 07:54 | NUR ---
NURSE NOTES: Received report from RONI Krueger. Patient was on Bipap and sleeping. Bed is at lowest position, break engaged, Side rails X 2, bed alarm on , call light within reach. Patient showed no sign of distress. No SOB, denies pain. Respiration is even and unlabored, on Bipap. PICC is patent, running fluid and heparin drip. Patient is in stable condition. Will continue to monitor.
[2018-07-28 08:00] VITALS: BP 140/60
[2018-07-28] MEDS: Spironolactone 25mg tab ORAL SCH ×2 (09:00→21:00)
[2018-07-28] MEDS: levETIRAcetam 1,000mg/NS100ml 100 ML IVPB SCH ×2 (09:19→21:13)
[2018-07-28] MEDS: levETIRAcetam 500mg/NS100ml 100 ML IVPB SCH ×2 (09:19→21:44)
--- NOTE | 2018-07-28 09:35 | Diagnostic Imaging Report ---
APPROVED REPORT CPT Code: 89289 Present Symptoms Comments: Swelling RIGHT UPPER EXTREMITY: Venous imaging reveals patency of the internal jugular, subclavian, axillary and brachial veins. The cephalic and basilic veins are also patent. Doppler indicates normal spontaneous flow within these venous segments. NOTE: Incidental finding of upper arm fluid collection (an echoic and non vascular) noted.
--- NOTE | 2018-07-28 11:21 | Infectious Diseases Prog Note ---
Assessment/Plan Assessment/Plan 89 yo male with PMHx of TBI, Seizure disorder, COPD, Encephalopathy, DM, HTN, CVA, Renal failure, CAD and Dysphagia s/p Peg who was brought to the ED on with intractable seizures. Respiratory failure Most probably due to seizures Active PNA unlikely Sputum Cx 07/12/18 - NF/ MSSA Bacteriuria UTI unlikely UCx - Staph h. S/P 2 days Vancomycin DVT right leg On Heparin TBI Seizure disorder COPD Encephalopathy DM HTN CVA Renal failure CAD Dysphagia s/p Peg Extubated 07/19/18 PLAN - DC Cefazolin # 7 07/15/18 S/P Vancomycin and Zosyn #2 - Supportive care - Monitor CBC and Temps Subjective Allergies: Coded Allergies: HALOPERIDOL (Verified Allergy, Mild, [place] really bad, 07/05/16) Makes him irritable. THIORIDAZINE (Verified Allergy, Mild, [place] really bad, 07/05/16) Makes him violent TRAZODONE (Verified Allergy, Mild, [place] really bad, 07/05/16) Too strong; inability to move. Uncoded Allergies: PSYCHOTROPIC MEDICATION (Allergy, Mild, 08/13/14) Subjective afebrile Objective Vital Signs Last 24 Hour Vital Signs Date Time Temp Pulse Resp B/P (MAP) Pulse Ox O2 Delivery O2 Flow Rate FiO2 07/28/18 09:00 Nasal Cannula 2.0 07/28/18 08:00 30 07/28/18 08:00 97.5 61 20 140/60 100 Bi-pap 61 07/28/18 07:15 97 Bi-Pap 30 07/28/18 07:15 80 19 99 Facial 30 07/28/18 05:01 78 19 98 Facial 30 07/28/18 04:01 55 07/28/18 04:00 97.3 56 20 116/67 97 Bi-pap 07/28/18 04:00 30 07/28/18 03:05 80 18 99 Facial 30 07/28/18 00:12 71 18 100 Facial 30 07/28/18 00:00 30 07/27/18 23:57 57 07/27/18 23:41 97.6 70 20 131/84 94 Room Air 07/27/18 21:27 97 Nasal Cannula 2.0 28 07/27/18 21:00 Nasal Cannula 2.0 6/14/19 20:00 98.0 55 20 132/66 96 Room Air 07/27/18 20:00 55 07/27/18 20:00 55 07/27/18 20:00 2.0 07/27/18 20:00 98.0 55 20 132/66 96 Nasal Cannula 07/27/18 19:56 68 07/27/18 16:00 66 07/27/18 16:00 2.0 07/27/18 16:00 97.7 64 20 130/62 100 Nasal Cannula 07/27/18 12:00 2.0 07/27/18 12:00 98.1 59 19 122/61 100 Bi-pap 07/27/18 12:00 56 Height (Feet): 6 Weight (Pounds): 175 HEENT: anicteric Respiratory/Chest: normal breath sounds Cardiovascular: normal rate Abdomen: normal bowel sounds Laboratory Tests Test 07/28/18 03:50 Activated Partial Thromboplast Time 85 SEC (23-33) H Current Medications Medications (Trade) Dose Ordered Sig/Jesi Route PRN Reason Start Time Stop Time Status Last Admin Dose Admin Acetaminophen (Tylenol) 650 mg Q6H PRN NG FOR TEMP > 100 OR PAIN 1-07/26/18 04:30 08/19/18 04:29 Cefazolin Sodium 1 gm/Dextrose 55 ml @ 110 mls/hr Q8H IVPB 07/26/18 10:00 07/28/18 17:59 07/28/18 10:26 Chlorhexidine Gluconate (Candie-Hex 2%) 1 applic DAILY@2000 TOPIC 07/26/18 20:00 08/15/18 19:59 07/27/18 20:53 Dextrose (Dextrose 50%) 25 ml Q30M PRN IV Hypoglycemia 07/26/18 04:15 08/12/18 01:14 Dextrose (Dextrose 50%) 50 ml Q30M PRN IV Hypoglycemia 07/26/18 04:15 08/12/18 01:14 Dextrose/Sodium Chloride 1,000 ml @ 50 mls/hr Q20H IV 07/26/18 04:00 08/20/18 06:14 07/27/18 20:53 Famotidine (Pepcid I.v.) 20 mg Q12HR IVP 07/26/18 09:00 08/12/18 08:59 07/28/18 09:19 Heparin Sodium/ Dextrose 500 ml @ 24.676 mls/ hr ADJUST PER PROTOCOL IV 07/27/18 04:45 08/24/18 06:59 07/28/18 05:41 Insulin Aspart (NovoLOG) EVERY 6 HOURS SUBQ 07/26/18 06:00 08/12/18 12:29 Levetiracetam 100 ml @ 400 mls/hr Q12H IVPB 07/26/18 09:15 08/13/18 21:14 07/28/18 09:19 Levetiracetam 100 ml @ 400 mls/hr Q12HR IVPB 07/26/18 09:00 08/13/18 20:59 07/28/18 09:19 Spironolactone (Aldactone) 25 mg EVERY 12 HOURS ORAL 07/27/18 21:00 08/26/18 20:59 Valproate Sodium 1000 mg/Dextrose 65 ml @ 32.5 mls/hr Q12HR@0100,1300 IV 07/26/18 13:00 08/13/18 12:59 07/28/18 00:38 Catrachito Torres MD Jul 28, 2018 11:21
--- NOTE | 2018-07-28 11:26 | NUR ---
NURSE NOTES: Pt has trace amount of blood in his urine. Changed hunter back to better assess amount of blood. Left message with Dr. Shine; awaiting response.
--- NOTE | 2018-07-28 11:35 | NUR ---
NURSE NOTES: Spoke with Dr. Shine about the hematuria. He ordered to discontinue heparin drip. Order noted and carried out.
[2018-07-28 12:00] VITALS: BP 133/60
--- NOTE | 2018-07-28 14:28 | Internal Med Progress Note ---
Subjective Date of Service: Jul 28, 2018 Physician Name Rojo,Michael Attending Physician Will Mejía MD Current Medications Medications (Trade) Dose Ordered Sig/Jesi Route PRN Reason Start Time Stop Time Status Last Admin Dose Admin Acetaminophen (Tylenol) 650 mg Q6H PRN NG FOR TEMP > 100 OR PAIN 1-6 07/26/18 04:30 08/19/18 04:29 Cefazolin Sodium 1 gm/Dextrose 55 ml @ 110 mls/hr Q8H IVPB 07/28/18 18:00 07/28/18 23:55 Chlorhexidine Gluconate (Candie-Hex 2%) 1 applic DAILY@2000 TOPIC 07/26/18 20:00 08/15/18 19:59 07/27/18 20:53 Dextrose (Dextrose 50%) 25 ml Q30M PRN IV Hypoglycemia 07/26/18 04:15 08/12/18 01:14 Dextrose (Dextrose 50%) 50 ml Q30M PRN IV Hypoglycemia 07/26/18 04:15 08/12/18 01:14 Dextrose/Sodium Chloride 1,000 ml @ 50 mls/hr Q20H IV 07/26/18 04:00 08/20/18 06:14 07/27/18 20:53 Famotidine (Pepcid I.v.) 20 mg Q12HR IVP 07/26/18 09:00 08/12/18 08:59 07/28/18 09:19 Insulin Aspart (NovoLOG) EVERY 6 HOURS SUBQ 07/26/18 06:00 08/12/18 12:29 Levetiracetam 100 ml @ 400 mls/hr Q12H IVPB 07/26/18 09:15 08/13/18 21:14 07/28/18 09:19 Levetiracetam 100 ml @ 400 mls/hr Q12HR IVPB 07/26/18 09:00 08/13/18 20:59 07/28/18 09:19 Spironolactone (Aldactone) 25 mg EVERY 12 HOURS ORAL 07/27/18 21:00 08/26/18 20:59 Valproate Sodium 1000 mg/Dextrose 65 ml @ 32.5 mls/hr Q12HR@0100,1300 IV 07/26/18 13:00 08/13/18 12:59 07/28/18 13:15 Allergies: Coded Allergies: HALOPERIDOL (Verified Allergy, Mild, [place] really bad, 07/05/16) Makes him irritable. THIORIDAZINE (Verified Allergy, Mild, [place] really bad, 07/05/16) Makes him violent TRAZODONE (Verified Allergy, Mild, [place] really bad, 07/05/16) Too strong; inability to move. Uncoded Allergies: PSYCHOTROPIC MEDICATION (Allergy, Mild, 08/13/14) ROS Limited/Unobtainable: No Constitutional: Reports: no symptoms HEENT: Reports: no symptoms Cardiovascular: Reports: no symptoms Respiratory: Reports: no symptoms Gastrointestinal/Abdominal: Reports: no symptoms Genitourinary: Reports: no symptoms Neurologic/Psychiatric: Reports: no symptoms Subjective 72 YO M admitted with breakthrough seizure. Now respiratory failure. Extubated 07/19/18; nasal canula. Cover for Int Connor-Dr Mejía. Still C/O productive cough Objective Last Vital Signs Date Time Temp Pulse Resp B/P (MAP) Pulse Ox O2 Delivery O2 Flow Rate FiO2 07/28/18 12:00 2.0 07/28/18 12:00 98.4 55 18 133/60 99 Nasal Cannula 55 07/28/18 08:00 30 Laboratory Tests Test 07/28/18 03:50 Activated Partial Thromboplast Time 85 SEC (23-33) H Intake and Output 07/27/18 07/28/18 19:00 07:00 Intake Total 1216.112 ml 719.352 ml Output Total 500 ml 1500 ml Balance 716.112 ml -780.648 ml Intake Oral 0 ml IV Total 1216.112 ml 719.352 ml Output Urine Total 500 ml 1500 ml # Bowel Movements 1 Objective PHYSICAL EXAMINATION: GENERAL: The patient is a thin-appearing male, in no apparent distress. HEENT: Eyes, pupils are equal and responsive to light and accommodation. Extraocular movements are intact. NECK: Supple. No lymphadenopathy. CHEST: Nasal canula; Few expiratory wheezes bilaterally. Otherwise, without crackles or rales. CARDIOVASCULAR: Tachycardic, regular rate. S1 and S2 are normal without murmurs, rubs, or gallops. ABDOMEN: Soft, nontender, and nondistended. Positive bowel sounds. No evidence of hepatosplenomegaly. Currently, no rebound or guarding noted. EXTREMITIES: Negative for clubbing, cyanosis, or edema. RECTAL/GENITAL: Not performed. NEUROLOGICALLY: Unable to assess secondary to the patient's mental status. Assessment/Plan Assessment/Plan ASSESSMENT: This is a 72-year-old male. 1. Intractable seizures. 2. Respiratory failure. 3. Probable pneumonia of the right upper lobe. 4. History of seizure disorder. 5. Chronic obstructive pulmonary disease. 6. Diabetes type 2. 7. Hypertension. 8. Metabolic encephalopathy. 9. Chronic obstructive pulmonary disease. 10. Chronic renal failure. 11. Traumatic brain injury. 12. Gastroesophageal reflux disease. 13. Coronary artery disease. 14. Anemia. 15. History of gastrointestinal hemorrhage. 16. Hypercholesteremia. 17. Cerebrovascular disease, status post cerebrovascular accident. 18. Dysphagia. 19. Prostate cancer with mets 20. UTI=staph haemolyticus 21. Protein calorie Malnutrition TREATMENT: 1. Intractable seizure. A Neurology consultation has been obtained. The patient has been started on Ativan intravenously. We will follow recommendations of Neurology. Continue Keppra, Dilantin, and Depakote as above. 2. Respiratory failure. Pulmonary consultation has been obtained with Dr. Maria E Shine. The patient is S/P extubation 07/19/18 now on nasal canula We will follow recommendations of Pulmonary. 3. Chronic obstructive pulmonary disease. As above, a Pulmonary consultation has been obtained with Dr. Maria E Shine. 4. Diabetes type 2. The patient has been placed on a NovoLog sliding scale. 5. Hypertension. The patient is currently hypotensive. 6. Metabolic encephalopathy. 7. Renal failure. 8. Traumatic brain injury. 9. Gastroesophageal reflux disease. 10. Coronary artery disease. 11. Anemia. 12. Gastrointestinal hemorrhage. 13. Hypercholesterolemia. 14. Cerebrovascular disease. 15. Dysphagia, status post PEG placement 16. Abx=cefazolin 17. ID consult=Dr Hunt 18. Await PEG-see psych note concerning competence. Michael Rojo MD Jul 28, 2018 14:28
[2018-07-28 16:00] VITALS: BP 159/64
--- NOTE | 2018-07-28 16:46 | Pulmonology Progress Note ---
Assessment/Plan Assessment/Plan ASSESSMENT Acute respiratory failure requiring intubation, s/p extubation Acute metabolic encephalopathy Acute DVT RLE bacteriuria, possible UTI COPD Seizure disorder with breakthrough episode ( on admission to [facility]) Hx of traumatic brain injury Diabetes mellitus Hx of prostate Ca E/lyte abnormalities Anemia Transaminitis Hx of CVA Dysphagia PLAN OF CARE tele heparin gtt venous duplex BLE with acute DVT RLE CF to popliteal veins O2 titrate prn, HHN prn s/p abx as per ID recs sputum cx negative, urine cx + Staph haemolyticus , no UA prior collected, doubt UTI, probably bacteriuria, repeated sputum cx + Staph aureus, Jaimee EEG neuro follows. seizure precaution, continue Keppra and Depakote GI prophylaxis BS management with sliding scale /sensitive of insulin , hemoglobin A1c - 5.6 monitor H&H with goal to keep hemoglobin above 7 trend LFT, hepatitis panel negative abdominal US noted will get PSA in lieu of questionable hx of prostate Ca repeatedly removing NGT failed VSS need PEG as per GI GI unable to reach family will probably need bioethics consult supportive care case discussed and evaluated by supervising physician Subjective Allergies: Coded Allergies: HALOPERIDOL (Verified Allergy, Mild, [place] really bad, 07/05/16) Makes him irritable. THIORIDAZINE (Verified Allergy, Mild, [place] really bad, 07/05/16) Makes him violent TRAZODONE (Verified Allergy, Mild, [place] really bad, 07/05/16) Too strong; inability to move. Uncoded Allergies: PSYCHOTROPIC MEDICATION (Allergy, Mild, 08/13/14) Subjective no fevers, no resp distress, on O2 2 L via NC pusle ox stable Objective Last 24 Hour Vital Signs Date Time Temp Pulse Resp B/P (MAP) Pulse Ox O2 Delivery O2 Flow Rate FiO2 07/28/18 16:00 98.1 54 17 159/64 99 Nasal Cannula 2.0 99 07/28/18 12:00 2.0 07/28/18 12:00 98.4 55 18 133/60 99 Nasal Cannula 2.0 55 07/28/18 12:00 54 07/28/18 09:00 Nasal Cannula 2.0 07/28/18 08:00 30 07/28/18 08:00 97.5 61 20 140/60 100 Bi-pap 61 07/28/18 07:45 59 07/28/18 07:15 97 Bi-Pap 30 07/28/18 07:15 80 19 99 Facial 30 07/28/18 05:01 78 19 98 Facial 30 07/28/18 04:01 55 07/28/18 04:00 97.3 56 20 116/67 97 Bi-pap 07/28/18 04:00 30 07/28/18 03:05 80 18 99 Facial 30 07/28/18 00:12 71 18 100 Facial 30 07/28/18 00:00 30 07/27/18 23:57 57 07/27/18 23:41 97.6 70 20 131/84 94 Room Air 07/27/18 21:27 97 Nasal Cannula 2.0 28 07/27/18 21:00 Nasal Cannula 2.0 07/27/18 20:00 98.0 55 20 132/66 96 Room Air 07/27/18 20:00 55 07/27/18 20:00 55 07/27/18 20:00 2.0 07/27/18 20:00 98.0 55 20 132/66 96 Nasal Cannula 07/27/18 19:56 68 Intake and Output 07/27/18 07/28/18 19:00 07:00 Intake Total 1216.112 ml 719.352 ml Output Total 500 ml 1500 ml Balance 716.112 ml -780.648 ml Intake Oral 0 ml IV Total 1216.112 ml 719.352 ml Output Urine Total 500 ml 1500 ml # Bowel Movements 1 General Appearance: no acute distress HEENT: normocephalic, atraumatic, anicteric Respiratory/Chest: lungs clear, no accessory muscle use Cardiovascular: normal rate Abdomen: soft, non tender Extremities: no edema Skin: other - old healed abd scars Neurologic/Psychiatric: abnormal gait, other - awake, poorly responsive Laboratory Tests 07/28/18 03:50: Activated Partial Thromboplast Time 85H 07/28/18 04:30: Valproic Acid (Depakene) Level [Pending] Current Medications Medications (Trade) Dose Ordered Sig/Jesi Route PRN Reason Start Time Stop Time Status Last Admin Dose Admin Acetaminophen (Tylenol) 650 mg Q6H PRN NG FOR TEMP > 100 OR PAIN 1-6 07/26/18 04:30 08/19/18 04:29 Cefazolin Sodium 1 gm/Dextrose 55 ml @ 110 mls/hr Q8H IVPB 07/28/18 18:00 07/28/18 23:55 Chlorhexidine Gluconate (Candie-Hex 2%) 1 applic DAILY@2000 TOPIC 07/26/18 20:00 08/15/18 19:59 07/27/18 20:53 Dextrose (Dextrose 50%) 25 ml Q30M PRN IV Hypoglycemia 07/26/18 04:15 08/12/18 01:14 Dextrose (Dextrose 50%) 50 ml Q30M PRN IV Hypoglycemia 07/26/18 04:15 08/12/18 01:14 Dextrose/Sodium Chloride 1,000 ml @ 50 mls/hr Q20H IV 07/26/18 04:00 08/20/18 06:14 07/27/18 20:53 Famotidine (Pepcid I.v.) 20 mg Q12HR IVP 07/26/18 09:00 08/12/18 08:59 07/28/18 09:19 Insulin Aspart (NovoLOG) EVERY 6 HOURS SUBQ 07/26/18 06:00 08/12/18 12:29 Levetiracetam 100 ml @ 400 mls/hr Q12H IVPB 07/26/18 09:15 08/13/18 21:14 07/28/18 09:19 Levetiracetam 100 ml @ 400 mls/hr Q12HR IVPB 07/26/18 09:00 08/13/18 20:59 07/28/18 09:19 Spironolactone (Aldactone) 25 mg EVERY 12 HOURS ORAL 07/27/18 21:00 08/26/18 20:59 Valproate Sodium 1500 mg/Dextrose 100 ml @ 50 mls/hr ONCE ONCE IV 07/28/18 17:00 07/28/18 18:59 Valproate Sodium 1500 mg/Dextrose 100 ml @ 50 mls/hr Q12HR IV 07/28/18 21:00 08/27/18 20:59 Sharla Mandujano NP Jul 28, 2018 16:46
--- NOTE | 2018-07-28 16:59 | NUR ---
NURSE NOTES: Valproic acid is 112. Made Kenia Pompa NP aware. She said up to 125 is okay and if it is okay with pharmacy, continue the valproic acid dose as ordered.
[2018-07-28] MEDS ORDERED: D5W IV ONE (17:00)
[2018-07-28] MEDS ORDERED: VALPROATE SODIUM IV ONE (17:00)
[2018-07-28] MEDS: D5 1/2NS 1,000 ML IV SCH (17:47)
[2018-07-28] MEDS ORDERED: ceFAZolin sod 1 GM in D5W 55 ML IVPB SCH (18:00)
--- NOTE | 2018-07-28 18:18 | NUR ---
NURSE NOTES: PICC line dressing changed.
--- NOTE | 2018-07-28 19:17 | NUR ---
HAND-OFF: Report given to RONI Krueger. Pt is in stable condition; plan of care endorsed.
--- NOTE | 2018-07-28 19:25 | NUR ---
NURSE NOTES: Received patient from Stacy TAMAYO. Patient in bed, awake, oriented x3. Bed in low position, locked, bed alarm on. Call light within reach. On room air, no s/s of respiratory distress. Bilateral wrist restraints on, peripheral pulses present, no s/s of trauma at the wrists. Sims catheter intact, PICC on KAMILLA, dressing intact, patent, D5 1/2 NS infusing at 50ml/hr.
[2018-07-28 20:00] VITALS: BP 158/64
--- NOTE | 2018-07-28 20:13 | General Progress Note ---
Assessment/Plan Status: stable, progressing, tolerating diet Assessment/Plan: ASSESSMENT (1) Iron deficiency anemia ICD Codes: D50.9 - Iron deficiency anemia SNOMED: 54361644 (2) Prostate cancer, primary, 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 site ICD Codes: C61 - Prostate cancer, primary, 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 site SNOMED: 495079202 (3) Seizure disorder ICD Codes: G40.909 - Epilepsy, unspecified, not intractable, without status epilepticus SNOMED: 827955968 (4) Anemia ICD Codes: D64.9 - Anemia, unspecified SNOMED: 270400696 (5) Diabetes mellitus ICD Codes: E11.9 - Type 2 diabetes mellitus without complications SNOMED: 31294111 (6) Acute encephalopathy ICD Codes: G93.40 - Encephalopathy, unspecified SNOMED: 4846629 (7) Severe malnutrition ICD Codes: E43 - Unspecified severe protein-calorie malnutrition SNOMED: 96282210 Assessment/Plan: needs PEG unable to reach family for consent consult social scientist patient has been pulling out his NGT speech eval appreciated recommend Psych eval for competency Subjective Allergies: Coded Allergies: HALOPERIDOL (Verified Allergy, Mild, [place] really bad, 07/05/16) Makes him irritable. THIORIDAZINE (Verified Allergy, Mild, [place] really bad, 07/05/16) Makes him violent TRAZODONE (Verified Allergy, Mild, [place] really bad, 07/05/16) Too strong; inability to move. Uncoded Allergies: PSYCHOTROPIC MEDICATION (Allergy, Mild, 08/13/14) Subjective Above noted no abd pain restrained on pureed diet Objective Last 24 Hour Vital Signs Date Time Temp Pulse Resp B/P (MAP) Pulse Ox O2 Delivery O2 Flow Rate FiO2 07/28/18 16:00 52 07/28/18 16:00 98.1 54 17 159/64 99 Nasal Cannula 2.0 99 07/28/18 16:00 2.0 07/28/18 12:00 2.0 07/28/18 12:00 98.4 55 18 133/60 99 Nasal Cannula 2.0 55 07/28/18 12:00 54 07/28/18 09:00 Nasal Cannula 2.0 07/28/18 08:00 30 07/28/18 08:00 97.5 61 20 140/60 100 Bi-pap 61 07/28/18 07:45 59 07/28/18 07:15 97 Bi-Pap 30 07/28/18 07:15 80 19 99 Facial 30 07/28/18 05:01 78 19 98 Facial 30 07/28/18 04:01 55 07/28/18 04:00 97.3 56 20 116/67 97 Bi-pap 07/28/18 04:00 30 07/28/18 03:05 80 18 99 Facial 30 07/28/18 00:12 71 18 100 Facial 30 07/28/18 00:00 30 07/27/18 23:57 57 07/27/18 23:41 97.6 70 20 131/84 94 Room Air 07/27/18 21:27 97 Nasal Cannula 2.0 28 07/27/18 21:00 Nasal Cannula 2.0 Intake and Output 07/27/18 07/28/18 19:00 07:00 Intake Total 1216.112 ml 719.352 ml Output Total 500 ml 1500 ml Balance 716.112 ml -780.648 ml Intake Oral 0 ml IV Total 1216.112 ml 719.352 ml Output Urine Total 500 ml 1500 ml # Bowel Movements 1 Laboratory Tests 07/28/18 03:50: Activated Partial Thromboplast Time 85H 07/28/18 04:30: Valproic Acid (Depakene) Level 112*H Height (Feet): 6 Weight (Pounds): 175 Objective WDWN AA man NCAT suppleCTA RRR abd soft NT ND no edema Millicent Monsivais MD Jul 28, 2018 20:13
[2018-07-28] MEDS ORDERED: VALPROATE SODIUM IV SCH (21:00)
[2018-07-28] MEDS ORDERED: D5W IV SCH (21:00)
[2018-07-28] MEDS: Dyna-Hex 2% Top Sol 2oz TOPIC SCH (21:12)
--- NOTE | 2018-07-28 22:38 | NUR ---
RESPIRATORY NOTE: Pt placed on BiPAP for nightly use. Pt previously on RA. Pt now on BiPAP 25/5, backup rate 16, 30%. Pt on a Facial mask, skin intact, no redness/breakdowns noted. Foam tape applied on pt's nosebridge/cheeks/chin to prevent any mask irritations. Pt alert/awake, follows commands. B/S juan. diminished, nonproductive cough. BiPAP plugged into red outlet, alarms on & audible. Pt resting comfortably, in no apparent distress at this time. Will continue plan of care.
--- NOTE | 2018-07-28 23:37 | Neurology Progress Note ---
Interim History Interim History ROS Limited/Unobtainable: No Complaints: AMS Events: EEG done today with seizure activity recorded, subclinical presentation Interim History This visit was performed on July 28, [address] Abad Iniguez. Objective Physical Exam Last Vital Signs Date Time Temp Pulse Resp B/P (MAP) Pulse Ox O2 Delivery O2 Flow Rate FiO2 07/28/18 22:35 60 16 98 Facial 30 07/28/18 21:00 2.0 07/28/18 20:00 98.2 158/64 Laboratory Tests Test 07/28/18 03:50 07/28/18 04:30 Activated Partial Thromboplast Time 85 SEC (23-33) H Valproic Acid (Depakene) Level 112 MCG/ML (50-100) *H General: well developed, well nourished Head: normocophalic Neck: no rigidity EENT: benign Neurologic Exam Mental Status: awake, alert, other Speech: other Language: other Cranial Nerve II: fundus normal, visual dodd, no papilledema Cranial Nerves III, IV, : PERRLA, EOMI Cranial Nerve V: normal facial sensations, temporales function normal, masseters function normal, pterygoids function normal, other Cranial Nerve VII: no facial asymmetry, normal facial expressions Cranial Nerve VIII: normal hearing, no nystagmus Cranial Nerve IX: normal palate elevation, gag response Cranial Nerve XI: SCM symmetric, other Cranial Nerve XII: tongue midline, no tongue atrophy/fasciculations, other Motor System: normal muscle tone, strength 5/5, no involuntary movement, no muscle wasting Sensory: normal pinprick, normal light touch, other Coordination: other Deep Tendon Reflexes: 1+ bicep (L), 1+ bicep (R), 1+ tricep (L), 1+ tricep (R) , 1+ brachioradialis (L), 1+ brachioradialis (R), 1+ knee (L), 1+ knee (R), 1+ ankle (L), 1+ ankle (R) Reflexes: flexor plantar (L), flexor plantar (R); extensor plantar (L), extensor plantar (R) Stance: normal Objective Awake, alert eyes open, tracking with eyes- he He is KAT x 4 and some to command with full strength- Pupils are briskly reactive and PERRL - His exam is non focal Has BIPAP mask on now Impression/Recommendations Problems: (1) Acute metabolic encephalopathy (2) Acute encephalopathy (3) Drug abuse (4) COPD (chronic obstructive pulmonary disease) (5) Diabetes mellitus (6) Anemia (7) Acute respiratory failure (8) Seizure disorder (9) UTI (urinary tract infection) (10) Prostate cancer, primary, 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 site (11) Iron deficiency anemia (12) Acute renal failure (ARF) Status: stable, progressing, tolerating diet Recommendations Continue AEDs- doses stable at this time. Keppra 1500mg BID Valproate 1000mg BID Monitor LFTs intermittently. Q4 hr neuro obs Maintain normoglycemia with ISS Maintain normothermia Optimize oxygenation PT Intense Chest physiotherapy? Follow up causes of anemia- IRON Replete/ Replace lytes as needed: Potassium/ Magnesium etc Replace IRON - IV Discuss enteral feeding needs EEG ordered to establish that there are no subclinical seizures at this time. Kenia Pompa N.P. Jul 28, 2018 23:37
[2018-07-29 00:14] VITALS: BP 117/68
[2018-07-29 04:00] VITALS: BP 143/62
[2018-07-29 05:30] LABS: BASOPHILS % (AUTO) 0.9 % (0.0-2.0); EOSINOPHILS % (AUTO) 3.8 % (0.0-3.0); HEMOGLOBIN 11.6 G/DL (14.2-18.0); LYMPHOCYTES % (AUTO) 20.7 % (20.0-45.0); MEAN CORPUSCULAR VOLUME 89 FL (80-99); MONOCYTES % (AUTO) 13.5 % (1.0-10.0); NEUTROPHILS % (AUTO) 61.1 % (45.0-75.0); PLATELET COUNT 166 K/UL (150-450); RED BLOOD COUNT 3.96 M/UL (4.70-6.10); RED CELL DISTRIBUTION WIDTH 13.6 % (11.6-14.8)
[2018-07-29 05:47] LABS: ANION GAP 9 mmol/L (5-15); BLOOD UREA NITROGEN 3 mg/dL (7-18); CALCIUM 8.9 MG/DL (8.5-10.1); CARBON DIOXIDE 25 MMOL/L (21-32); CHLORIDE 110 MMOL/L (98-107); CREATININE 0.8 MG/DL (0.55-1.30); POTASSIUM 3.1 MMOL/L (3.5-5.1); SODIUM 144 MMOL/L (136-145)
[2018-07-29] MEDS: NovoLOG Insulin Flexpen SUBQ SCH ×4 (05:59→18:00)
--- NOTE | 2018-07-29 06:59 | NUR ---
NURSE NOTES: Potassium 3.1, up from 3.0. Notified Dr. Mejía, awaiting response.
--- NOTE | 2018-07-29 07:45 | NUR ---
NURSE NOTES: Received pt from RONI Krueger in stable condition with no cardiopulmonary distress noted. Pt is asleep in bed,on 2L O2 via NC. Restraints noted on bilat wrists, small skin tear noted on right wrist and covered with optifoam. Radial pulses present bilaterally. F/C noted draining yellow urine. KAMILLA PICC noted. Skin alterations noted. Bed is in lowest position with side rails up x 3, call light within reach. Will continue to monitor.
--- NOTE | 2018-07-29 07:45 | NUR ---
NURSE NOTES: Received order for KCL 40 meq IV x1 dose. Order placed.
--- NOTE | 2018-07-29 07:46 | NUR ---
HAND-OFF: Report given to Kiki TAMAYO. Plan of care endorsed.
[2018-07-29 08:00] VITALS: BP 110/64
[2018-07-29] MEDS: levETIRAcetam 1,000mg/NS100ml 100 ML IVPB SCH ×2 (08:18→21:30)
[2018-07-29] MEDS: Spironolactone 25mg tab ORAL SCH ×2 (08:22→21:29)
[2018-07-29] MEDS: levETIRAcetam 500mg/NS100ml 100 ML IVPB SCH ×2 (08:48→21:31)
[2018-07-29] MEDS ORDERED: D5 1/2NS 1000ml IV ONE ×3 (09:36→16:00)
[2018-07-29] MEDS ORDERED: NS 275ml ONE ×2 (09:36→10:09)
--- NOTE | 2018-07-29 09:36 | NUR ---
NURSE NOTES: Left a message for Kenia Pompa NP regarding pt's valproic acid level (112) to confirm if this morning's dose should still be administered. Holding the dose until I hear back from her.
--- NOTE | 2018-07-29 09:47 | NUR ---
NURSE NOTES: Received call back from Dr. Peraza (on behald of Kenia Pompa), tramaine to administer valproic acid despite Valproic acid serum level of 112 (per Dr. Peraza). Will administer now.
[2018-07-29] MEDS: VALPROATE SODIUM IV SCH ×2 (09:49→21:29)
[2018-07-29] MEDS: D5W IV SCH ×2 (09:49→21:29)
[2018-07-29] MEDS ORDERED: Tubing IV Secondary IV ONE ×2 (10:09→16:00)
--- NOTE | 2018-07-29 10:26 | Pulmonology Progress Note ---
Assessment/Plan Assessment/Plan ASSESSMENT Acute respiratory failure requiring intubation, s/p extubation Acute metabolic encephalopathy Acute DVT RLE bacteriuria, possible UTI COPD Seizure disorder with breakthrough episode ( on admission to [facility]) Hx of traumatic brain injury Diabetes mellitus Hx of prostate Ca E/lyte abnormalities Anemia Transaminitis Hx of CVA Dysphagia PLAN OF CARE tele heparin gtt venous duplex BLE with acute DVT RLE CF to popliteal veins O2 titrate prn, HHN prn s/p abx as per ID recs sputum cx negative, urine cx + Staph haemolyticus , no UA prior collected, doubt UTI, probably bacteriuria, repeated sputum cx + Staph aureus, Jaimee EEG neuro follows. seizure precaution, continue Keppra and Depakote GI prophylaxis BS management with sliding scale /sensitive of insulin , hemoglobin A1c - 5.6 monitor H&H with goal to keep hemoglobin above 7 trend LFT, hepatitis panel negative abdominal US noted will get PSA in lieu of questionable hx of prostate Ca repeatedly removing NGT failed VSS need PEG as per GI unable to reach family, but patient declined PEG start diet as per ST recs for quality of life with strict aspiration precautions and 1 to 1 supervision supportive care replace K today, check K and Mg in am case discussed and evaluated by supervising physician Subjective Allergies: Coded Allergies: HALOPERIDOL (Verified Allergy, Mild, [place] really bad, 07/05/16) Makes him irritable. THIORIDAZINE (Verified Allergy, Mild, [place] really bad, 07/05/16) Makes him violent TRAZODONE (Verified Allergy, Mild, [place] really bad, 07/05/16) Too strong; inability to move. Uncoded Allergies: PSYCHOTROPIC MEDICATION (Allergy, Mild, 08/13/14) Subjective no fevers, no resp distress, on O2 2 L via NC pulse ox stable K-low Objective Last 24 Hour Vital Signs Date Time Temp Pulse Resp B/P (MAP) Pulse Ox O2 Delivery O2 Flow Rate FiO2 07/29/18 08:00 2.0 07/29/18 08:00 98.0 66 23 110/64 100 Nasal Cannula 2.0 07/29/18 04:00 30 07/29/18 04:00 54 07/29/18 04:00 96.4 54 21 143/62 100 Bi-pap 30 07/29/18 03:33 63 16 97 Facial 30 07/29/18 01:29 61 16 98 Facial 30 07/29/18 00:14 97.9 61 17 117/68 100 Bi-pap 30 07/29/18 00:00 30 07/28/18 23:46 54 07/28/18 22:35 60 16 98 Facial 30 07/28/18 22:35 97 Room Air 21 07/28/18 21:00 Nasal Cannula 2.0 07/28/18 20:00 2.0 07/28/18 20:00 98.2 56 17 158/64 94 Room Air 07/28/18 19:51 57 07/28/18 16:00 52 07/28/18 16:00 98.1 54 17 159/64 99 Nasal Cannula 2.0 99 07/28/18 16:00 2.0 07/28/18 12:00 2.0 07/28/18 12:00 98.4 55 18 133/60 99 Nasal Cannula 2.0 55 07/28/18 12:00 54 Intake and Output 07/28/18 07/29/18 19:00 07:00 Intake Total 50 ml 750 ml Output Total 1200 ml 1100 ml Balance -1150 ml -350 ml IV Total 50 ml 750 ml Output Urine Total 1200 ml 1100 ml Objective General Appearance: no acute distress HEENT: normocephalic, atraumatic, anicteric Respiratory/Chest: lungs clear, no accessory muscle use Cardiovascular: normal rate Abdomen: soft, non tender Extremities: no edema Skin: old healed abd scars Neurologic/Psychiatric: abnormal gait, awake, responsive Laboratory Tests 07/29/18 04:15: White Blood Count 4.0L, Red Blood Count 3.96L, Hemoglobin 11.6L, Hematocrit 35.0L, Mean Corpuscular Volume 89, Mean Corpuscular Hemoglobin 29.4, Mean Corpuscular Hemoglobin Concent 33.2, Red Cell Distribution Width 13.6, Platelet Count 166, Mean Platelet Volume 5.0L, Neutrophils (%) (Auto) 61.1, Lymphocytes ( %) (Auto) 20.7, Monocytes (%) (Auto) 13.5H, Eosinophils (%) (Auto) 3.8H, Basophils (%) (Auto) 0.9, Activated Partial Thromboplast Time 28, Sodium Level 144, Potassium Level 3.1L, Chloride Level 110H, Carbon Dioxide Level 25, Anion Gap 9, Blood Urea Nitrogen 3L, Creatinine 0.8, Estimat Glomerular Filtration Rate , Glucose Level 76, Calcium Level 8.9 Current Medications Medications (Trade) Dose Ordered Sig/Jesi Route PRN Reason Start Time Stop Time Status Last Admin Dose Admin Acetaminophen (Tylenol) 650 mg Q6H PRN NG FOR TEMP > 100 OR PAIN 1-07/26/18 04:30 08/19/18 04:29 Chlorhexidine Gluconate (Candie-Hex 2%) 1 applic DAILY@2000 TOPIC 07/26/18 20:00 08/15/18 19:59 07/28/18 21:12 Dextrose (Dextrose 50%) 25 ml Q30M PRN IV Hypoglycemia 07/26/18 04:15 08/12/18 01:14 Dextrose (Dextrose 50%) 50 ml Q30M PRN IV Hypoglycemia 07/26/18 04:15 08/12/18 01:14 Dextrose/Sodium Chloride 1,000 ml @ 50 mls/hr Q20H IV 07/26/18 04:00 08/20/18 06:14 07/28/18 17:47 Famotidine (Pepcid I.v.) 20 mg Q12HR IVP 07/26/18 09:00 08/12/18 08:59 07/29/18 08:20 Insulin Aspart (NovoLOG) EVERY 6 HOURS SUBQ 07/26/18 06:00 08/12/18 12:29 Levetiracetam 100 ml @ 400 mls/hr Q12H IVPB 07/26/18 09:15 08/13/18 21:14 07/29/18 08:48 Levetiracetam 100 ml @ 400 mls/hr Q12HR IVPB 07/26/18 09:00 08/13/18 20:59 07/29/18 08:18 Potassium Chloride 100 ml @ 50 mls/hr Q2H IVPB 07/29/18 10:00 07/29/18 13:59 Spironolactone (Aldactone) 25 mg EVERY 12 HOURS ORAL 07/27/18 21:00 08/26/18 20:59 07/29/18 08:22 Valproate Sodium 1500 mg/Dextrose 100 ml @ 50 mls/hr Q12HR IV 07/29/18 09:00 08/28/18 08:59 07/29/18 09:49 Sharla Mandujano NP Jul 29, 2018 10:26
[2018-07-29] MEDS ORDERED: Albuterol/Ipratropium 3ml neb HHN PRN (10:30)
--- NOTE | 2018-07-29 11:00 | NUR ---
NURSE NOTES: Per pharmacy, heparin drip was d/c 07/28 at 0541. Pt had visible hematuria per casino shift manager nurse (Evans). Pt expectorates blood-tinged sputum currently. Dr. Mejía is aware Heparin drip is d/c and pharmacological tx for DVT is contraindicated until active bleeding resolves. Will continue to monitor pt.
[2018-07-29] MEDS: D5 1/2NS 1,000 ML IV SCH (11:15)
[2018-07-29 12:00] VITALS: BP 159/69
--- NOTE | 2018-07-29 13:00 | NUR ---
NURSE NOTES: Pt still refuses PEG placement. Diet changed per ST recommendation and Sharla Mandujano NP- however, pt is unable to tolerate PO diet. Pt started coughing despite 1:1 feeder and small teaspoons given. Will hold off on PO diet and endorse to [facility].
--- NOTE | 2018-07-29 14:23 | Internal Med Progress Note ---
Subjective Date of Service: Jul 29, 2018 Physician Name RojoMichael Attending Physician Will Mejía MD Current Medications Medications (Trade) Dose Ordered Sig/Jesi Route PRN Reason Start Time Stop Time Status Last Admin Dose Admin Acetaminophen (Tylenol) 650 mg Q6H PRN NG FOR TEMP > 100 OR PAIN 1-6 07/26/18 04:30 08/19/18 04:29 Albuterol/ Ipratropium (Albuterol/ Ipratropium) 3 ml Q4HRT PRN HHN sob 07/29/18 10:30 08/03/18 10:29 Chlorhexidine Gluconate (Candie-Hex 2%) 1 applic DAILY@2000 TOPIC 07/26/18 20:00 08/15/18 19:59 07/28/18 21:12 Dextrose (Dextrose 50%) 25 ml Q30M PRN IV Hypoglycemia 07/26/18 04:15 08/12/18 01:14 Dextrose (Dextrose 50%) 50 ml Q30M PRN IV Hypoglycemia 07/26/18 04:15 08/12/18 01:14 Dextrose/Sodium Chloride 1,000 ml @ 50 mls/hr Q20H IV 07/26/18 04:00 08/20/18 06:14 07/29/18 11:15 Famotidine (Pepcid I.v.) 20 mg Q12HR IVP 07/26/18 09:00 08/12/18 08:59 07/29/18 08:20 Insulin Aspart (NovoLOG) EVERY 6 HOURS SUBQ 07/26/18 06:00 08/12/18 12:29 Levetiracetam 100 ml @ 400 mls/hr Q12H IVPB 07/26/18 09:15 08/13/18 21:14 07/29/18 08:48 Levetiracetam 100 ml @ 400 mls/hr Q12HR IVPB 07/26/18 09:00 08/13/18 20:59 07/29/18 08:18 Spironolactone (Aldactone) 25 mg EVERY 12 HOURS ORAL 07/27/18 21:00 08/26/18 20:59 07/29/18 08:22 Valproate Sodium 1500 mg/Dextrose 100 ml @ 50 mls/hr Q12HR IV 07/29/18 09:00 08/28/18 08:59 07/29/18 09:49 Allergies: Coded Allergies: HALOPERIDOL (Verified Allergy, Mild, [place] really bad, 07/05/16) Makes him irritable. THIORIDAZINE (Verified Allergy, Mild, [place] really bad, 07/05/16) Makes him violent TRAZODONE (Verified Allergy, Mild, [place] really bad, 07/05/16) Too strong; inability to move. Uncoded Allergies: PSYCHOTROPIC MEDICATION (Allergy, Mild, 08/13/14) ROS Limited/Unobtainable: Yes Subjective 72 YO M admitted with breakthrough seizure. Now respiratory failure. Extubated 07/19/18; nasal canula. Cover for Int Med-Dr Mejía. Await PEG Objective Last Vital Signs Date Time Temp Pulse Resp B/P (MAP) Pulse Ox O2 Delivery O2 Flow Rate FiO2 07/29/18 12:00 48 07/29/18 12:00 97.9 20 159/69 98 Nasal Cannula 2.0 07/29/18 04:00 30 Laboratory Tests Test 07/29/18 04:15 White Blood Count 4.0 K/UL (4.8-10.8) L Red Blood Count 3.96 M/UL (4.70-6.10) L Hemoglobin 11.6 G/DL (14.2-18.0) L Hematocrit 35.0 % (42.0-52.0) L Mean Corpuscular Volume 89 FL (80-99) Mean Corpuscular Hemoglobin 29.4 PG (27.0-31.0) Mean Corpuscular Hemoglobin Concent 33.2 G/DL (32.0-36.0) Red Cell Distribution Width 13.6 % (11.6-14.8) Platelet Count 166 K/UL (150-450) Mean Platelet Volume 5.0 FL (6.5-10.1) L Neutrophils (%) (Auto) 61.1 % (45.0-75.0) Lymphocytes (%) (Auto) 20.7 % (20.0-45.0) Monocytes (%) (Auto) 13.5 % (1.0-10.0) H Eosinophils (%) (Auto) 3.8 % (0.0-3.0) H Basophils (%) (Auto) 0.9 % (0.0-2.0) Activated Partial Thromboplast Time 28 SEC (23-33) Sodium Level 144 MMOL/L (136-145) Potassium Level 3.1 MMOL/L (3.5-5.1) L Chloride Level 110 MMOL/L (98-107) H Carbon Dioxide Level 25 MMOL/L (21-32) Anion Gap 9 mmol/L (5-15) Blood Urea Nitrogen 3 mg/dL (7-18) L Creatinine 0.8 MG/DL (0.55-1.30) Estimat Glomerular Filtration Rate mL/min (>60) Glucose Level 76 MG/DL (74-106) Calcium Level 8.9 MG/DL (8.5-10.1) Intake and Output 07/28/18 07/29/18 19:00 07:00 Intake Total 50 ml 750 ml Output Total 1200 ml 1100 ml Balance -1150 ml -350 ml IV Total 50 ml 750 ml Output Urine Total 1200 ml 1100 ml Objective PHYSICAL EXAMINATION: GENERAL: The patient is a thin-appearing male, in no apparent distress. HEENT: Eyes, pupils are equal and responsive to light and accommodation. Extraocular movements are intact. NECK: Supple. No lymphadenopathy. CHEST: Nasal canula; Few expiratory wheezes bilaterally. Otherwise, without crackles or rales. CARDIOVASCULAR: Tachycardic, regular rate. S1 and S2 are normal without murmurs, rubs, or gallops. ABDOMEN: Soft, nontender, and nondistended. Positive bowel sounds. No evidence of hepatosplenomegaly. Currently, no rebound or guarding noted. EXTREMITIES: Negative for clubbing, cyanosis, or edema. RECTAL/GENITAL: Not performed. NEUROLOGICALLY: Unable to assess secondary to the patient's mental status. Assessment/Plan Assessment/Plan ASSESSMENT: This is a 72-year-old male. 1. Intractable seizures. 2. Respiratory failure. 3. Probable pneumonia of the right upper lobe. 4. History of seizure disorder. 5. Chronic obstructive pulmonary disease. 6. Diabetes type 2. 7. Hypertension. 8. Metabolic encephalopathy. 9. Chronic obstructive pulmonary disease. 10. Chronic renal failure. 11. Traumatic brain injury. 12. Gastroesophageal reflux disease. 13. Coronary artery disease. 14. Anemia. 15. History of gastrointestinal hemorrhage. 16. Hypercholesteremia. 17. Cerebrovascular disease, status post cerebrovascular accident. 18. Dysphagia. 19. Prostate cancer with mets 20. UTI=staph haemolyticus 21. Protein calorie Malnutrition TREATMENT: 1. Intractable seizure. A Neurology consultation has been obtained. The patient has been started on Ativan intravenously. We will follow recommendations of Neurology. Continue Keppra, Dilantin, and Depakote as above. 2. Respiratory failure. Pulmonary consultation has been obtained with Dr. Maria E Shine. The patient is S/P extubation 07/19/18 now on nasal canula We will follow recommendations of Pulmonary. 3. Chronic obstructive pulmonary disease. As above, a Pulmonary consultation has been obtained with Dr. Maria E Shine. 4. Diabetes type 2. The patient has been placed on a NovoLog sliding scale. 5. Hypertension. The patient is currently hypotensive. 6. Metabolic encephalopathy. 7. Renal failure. 8. Traumatic brain injury. 9. Gastroesophageal reflux disease. 10. Coronary artery disease. 11. Anemia. 12. Gastrointestinal hemorrhage. 13. Hypercholesterolemia. 14. Cerebrovascular disease. 15. Dysphagia, status post PEG placement 16. Abx=cefazolin 17. ID consult=Dr Hunt 18. Await PEG-see psych note concerning competence. Michael Rojo MD Jul 29, 2018 14:23
[2018-07-29 16:00] VITALS: BP 125/55
--- NOTE | 2018-07-29 16:57 | General Progress Note ---
Assessment/Plan Status: stable, progressing, tolerating diet Assessment/Plan: ASSESSMENT (1) Iron deficiency anemia ICD Codes: D50.9 - Iron deficiency anemia SNOMED: 19640589 (2) Prostate cancer, primary, 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 site ICD Codes: C61 - Prostate cancer, primary, 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 site SNOMED: 847101504 (3) Seizure disorder ICD Codes: G40.909 - Epilepsy, unspecified, not intractable, without status epilepticus SNOMED: 677413319 (4) Anemia ICD Codes: D64.9 - Anemia, unspecified SNOMED: 179668133 (5) Diabetes mellitus ICD Codes: E11.9 - Type 2 diabetes mellitus without complications SNOMED: 99737860 (6) Acute encephalopathy ICD Codes: G93.40 - Encephalopathy, unspecified SNOMED: 5645282 (7) Severe malnutrition ICD Codes: E43 - Unspecified severe protein-calorie malnutrition SNOMED: 82008781 Assessment/Plan: needs PEG unable to reach family for consent patient has been pulling out his NGT speech eval appreciated psych eval noted - not competent PEG placement per Dr Rubin Subjective Allergies: Coded Allergies: HALOPERIDOL (Verified Allergy, Mild, [place] really bad, 07/05/16) Makes him irritable. THIORIDAZINE (Verified Allergy, Mild, [place] really bad, 07/05/16) Makes him violent TRAZODONE (Verified Allergy, Mild, [place] really bad, 07/05/16) Too strong; inability to move. Uncoded Allergies: PSYCHOTROPIC MEDICATION (Allergy, Mild, 08/13/14) Subjective Above noted no abd pain calm on pureed diet Objective Last 24 Hour Vital Signs Date Time Temp Pulse Resp B/P (MAP) Pulse Ox O2 Delivery O2 Flow Rate FiO2 07/29/18 16:00 2.0 07/29/18 12:00 48 07/29/18 12:00 97.9 49 20 159/69 98 Nasal Cannula 2.0 07/29/18 12:00 2.0 07/29/18 09:00 Nasal Cannula 2.0 07/29/18 08:00 2.0 07/29/18 08:00 98.0 66 23 110/64 100 Nasal Cannula 2.0 07/29/18 08:00 68 07/29/18 04:00 30 07/29/18 04:00 54 07/29/18 04:00 96.4 54 21 143/62 100 Bi-pap 30 07/29/18 03:33 63 16 97 Facial 30 07/29/18 01:29 61 16 98 Facial 30 07/29/18 00:14 97.9 61 17 117/68 100 Bi-pap 30 07/29/18 00:00 30 07/28/18 23:46 54 07/28/18 22:35 60 16 98 Facial 30 07/28/18 22:35 97 Room Air 21 07/28/18 21:00 Nasal Cannula 2.0 07/28/18 20:00 2.0 07/28/18 20:00 98.2 56 17 158/64 94 Room Air 07/28/18 19:51 57 Intake and Output 07/28/18 07/29/18 19:00 07:00 Intake Total 50 ml 750 ml Output Total 1200 ml 1100 ml Balance -1150 ml -350 ml IV Total 50 ml 750 ml Output Urine Total 1200 ml 1100 ml Laboratory Tests 07/29/18 04:15: White Blood Count 4.0L, Red Blood Count 3.96L, Hemoglobin 11.6L, Hematocrit 35.0L, Mean Corpuscular Volume 89, Mean Corpuscular Hemoglobin 29.4, Mean Corpuscular Hemoglobin Concent 33.2, Red Cell Distribution Width 13.6, Platelet Count 166, Mean Platelet Volume 5.0L, Neutrophils (%) (Auto) 61.1, Lymphocytes ( %) (Auto) 20.7, Monocytes (%) (Auto) 13.5H, Eosinophils (%) (Auto) 3.8H, Basophils (%) (Auto) 0.9, Activated Partial Thromboplast Time 28, Sodium Level 144, Potassium Level 3.1L, Chloride Level 110H, Carbon Dioxide Level 25, Anion Gap 9, Blood Urea Nitrogen 3L, Creatinine 0.8, Estimat Glomerular Filtration Rate , Glucose Level 76, Calcium Level 8.9 Height (Feet): 6 Weight (Pounds): 171 Objective WDWN AA man NCAT suppleCTA RRR abd soft NT ND no edema Millicent Monsivais MD Jul 29, 2018 16:57
--- NOTE | 2018-07-29 17:30 | NUR ---
NURSE NOTES: Pt insisted on eating dinner. Pt was able to tolerate 35% of dinner but coughed mildly. Will endorse to next shift.
--- NOTE | 2018-07-29 19:40 | NUR ---
HAND-OFF: Report given to RONI Gates. Pt in stable condition.
--- NOTE | 2018-07-29 19:50 | NUR ---
NURSE NOTES: patient received. patient in no acute distress at this time. patient complains of no pain at this time. patient awake alert and oriented x2. patient has small tear in right wrist from restraint. covered with biotin dressing and dry and intact. Sims intact and draining. patient on 2L NC, canula intact and patient is sating 100%. IV intact patent and asymptomatic. patient on restraints. restraints were renewed previous shift and i will renew by midnight. seizure precautions taken. bed rails padded. bed in lowest position and locked. call light within reach. bed alarm on. will continue to monitor.
[2018-07-29 20:00] VITALS: BP 138/77
[2018-07-29] MEDS: Dyna-Hex 2% Top Sol 2oz TOPIC SCH (21:29)
--- NOTE | 2018-07-29 23:49 | Neurology Progress Note ---
Interim History Interim History ROS Limited/Unobtainable: Yes Complaints: AMS Events: Valproate dose increased to 1500mgBID due to seizure on EEG Interim History This visit was performed on July 29, [address] Abad Iniguez. Objective Physical Exam Last Vital Signs Date Time Temp Pulse Resp B/P (MAP) Pulse Ox O2 Delivery O2 Flow Rate FiO2 07/29/18 22:20 68 16 96 Facial 30 07/29/18 20:00 2.0 07/29/18 16:00 98.1 125/55 Laboratory Tests Test 07/29/18 04:15 White Blood Count 4.0 K/UL (4.8-10.8) L Red Blood Count 3.96 M/UL (4.70-6.10) L Hemoglobin 11.6 G/DL (14.2-18.0) L Hematocrit 35.0 % (42.0-52.0) L Mean Corpuscular Volume 89 FL (80-99) Mean Corpuscular Hemoglobin 29.4 PG (27.0-31.0) Mean Corpuscular Hemoglobin Concent 33.2 G/DL (32.0-36.0) Red Cell Distribution Width 13.6 % (11.6-14.8) Platelet Count 166 K/UL (150-450) Mean Platelet Volume 5.0 FL (6.5-10.1) L Neutrophils (%) (Auto) 61.1 % (45.0-75.0) Lymphocytes (%) (Auto) 20.7 % (20.0-45.0) Monocytes (%) (Auto) 13.5 % (1.0-10.0) H Eosinophils (%) (Auto) 3.8 % (0.0-3.0) H Basophils (%) (Auto) 0.9 % (0.0-2.0) Activated Partial Thromboplast Time 28 SEC (23-33) Sodium Level 144 MMOL/L (136-145) Potassium Level 3.1 MMOL/L (3.5-5.1) L Chloride Level 110 MMOL/L (98-107) H Carbon Dioxide Level 25 MMOL/L (21-32) Anion Gap 9 mmol/L (5-15) Blood Urea Nitrogen 3 mg/dL (7-18) L Creatinine 0.8 MG/DL (0.55-1.30) Estimat Glomerular Filtration Rate mL/min (>60) Glucose Level 76 MG/DL (74-106) Calcium Level 8.9 MG/DL (8.5-10.1) General: well developed, well nourished Head: normocophalic Neck: no rigidity EENT: benign Neurologic Exam Mental Status: awake, alert, other Speech: other Language: other Cranial Nerve II: fundus normal, visual dodd, no papilledema Cranial Nerves III, IV, : PERRLA, EOMI Cranial Nerve V: normal facial sensations, temporales function normal, masseters function normal, pterygoids function normal, other Cranial Nerve VII: no facial asymmetry, normal facial expressions Cranial Nerve VIII: normal hearing, no nystagmus Cranial Nerve IX: normal palate elevation, gag response Cranial Nerve XI: SCM symmetric, other Cranial Nerve XII: tongue midline, no tongue atrophy/fasciculations, other Motor System: normal muscle tone, strength 5/5, no involuntary movement, no muscle wasting Sensory: normal pinprick, normal light touch, other Coordination: other Deep Tendon Reflexes: 1+ bicep (L), 1+ bicep (R), 1+ tricep (L), 1+ tricep (R) , 1+ brachioradialis (L), 1+ brachioradialis (R), 1+ knee (L), 1+ knee (R), 1+ ankle (L), 1+ ankle (R) Reflexes: flexor plantar (L), flexor plantar (R); extensor plantar (L), extensor plantar (R) Stance: normal Objective Awake, alert eyes open, tracking with eyes- he He is KAT x 4 and some to command with full strength- Pupils are briskly reactive and PERRL - His exam is non focal He is alert but confused. Impression/Recommendations Problems: (1) Acute metabolic encephalopathy (2) Acute encephalopathy (3) Drug abuse (4) COPD (chronic obstructive pulmonary disease) (5) Diabetes mellitus (6) Anemia (7) Acute respiratory failure (8) Seizure disorder (9) UTI (urinary tract infection) (10) Prostate cancer, primary, 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 site (11) Iron deficiency anemia (12) Acute renal failure (ARF) Status: stable, progressing, tolerating diet Recommendations Continue AEDs- doses stable at this time. Keppra 1500mg BID Valproate 1000mg BID Monitor LFTs intermittently. Recheck Valproate Level Q4 hr neuro obs Maintain normoglycemia with ISS Maintain normothermia Optimize oxygenation PT Intense Chest physiotherapy? Follow up causes of anemia- IRON Replete/ Replace lytes as needed: Potassium/ Magnesium etc Replace IRON - IV Discuss enteral feeding needs Kenia Pompa N.P. Jul 29, 2018 23:49
[2018-07-30] VITALS: BP 146/75
[2018-07-30 04:00] VITALS: BP 150/81
[2018-07-30] MEDS: NovoLOG Insulin Flexpen SUBQ SCH ×4 (06:00→18:00)
--- NOTE | 2018-07-30 07:12 | NUR ---
HAND-OFF: Report given to RONI wakefield, patient stable.
[2018-07-30 07:53] LABS: BASOPHILS % (AUTO) 0.4 % (0.0-2.0); EOSINOPHILS % (AUTO) 2.2 % (0.0-3.0); HEMATOCRIT 31.3 % (42.0-52.0); HEMOGLOBIN 10.5 G/DL (14.2-18.0); LYMPHOCYTES % (AUTO) 14.1 % (20.0-45.0); MEAN CORPUSCULAR VOLUME 88 FL (80-99); MONOCYTES % (AUTO) 13.3 % (1.0-10.0); NEUTROPHILS % (AUTO) 69.9 % (45.0-75.0); PLATELET COUNT 154 K/UL (150-450); RED BLOOD COUNT 3.54 M/UL (4.70-6.10); RED CELL DISTRIBUTION WIDTH 13.7 % (11.6-14.8); WHITE BLOOD COUNT 6.4 K/UL (4.8-10.8)
--- NOTE | 2018-07-30 07:58 | NUR ---
NURSE NOTES: Report was given by RONI Hernandez. Patient was sleeping. Patient was using Bipap. No signs of distress or discomfort. Bed is in lowest position, wrist restraints applied on both wrist, skin is intact, no redness, no tear. PICC line is patent, no s/s of redness, tenderness. Call light within reach.
[2018-07-30 08:00] VITALS: BP 138/53
[2018-07-30] MEDS: D5 1/2NS 1,000 ML IV SCH (08:00)
[2018-07-30 08:13] LABS: ANION GAP 8 mmol/L (5-15); BLOOD UREA NITROGEN 6 mg/dL (7-18); CALCIUM 8.5 MG/DL (8.5-10.1); CARBON DIOXIDE 26 MMOL/L (21-32); CHLORIDE 109 MMOL/L (98-107); CREATININE 0.8 MG/DL (0.55-1.30); POTASSIUM 3.3 MMOL/L (3.5-5.1); SODIUM 143 MMOL/L (136-145)
--- NOTE | 2018-07-30 08:55 | NUR ---
RADIOLOGY: PCXR COMPLETED 0855 HRS. NF
--- NOTE | 2018-07-30 09:05 | NUR ---
NURSE NOTES: Made Dr. Mejía aware that patient's potassium is 3.3 and magnesium is 1.5. Dr. Mejía ordered 2gm of Mag IV and KCL 40meq PO x 1 dose. Ordered noted and carried out.
[2018-07-30] MEDS: D5W IV SCH ×2 (09:22→21:39)
[2018-07-30] MEDS: Spironolactone 25mg tab ORAL SCH ×2 (09:22→21:40)
[2018-07-30] MEDS: levETIRAcetam 1,000mg/NS100ml 100 ML IVPB SCH ×2 (09:22→21:40)
[2018-07-30] MEDS: VALPROATE SODIUM IV SCH ×2 (09:22→21:39)
--- NOTE | 2018-07-30 09:50 | NUR ---
PT EVALUATION NOTE Patient seen for initial evaluation, see complete evaluation for details. Patient presents with generalized weakness, impaired cognition and deficits in functional mobility. Patient required min assist for bed mobility and transfers with FWW. Gait deferred due to impaired balance and weakness. Patient will benefit from skilled inpatient PT intervention to address strength, balance, safety and functional mobility. Recommend discharge to SNF for further rehab once medically cleared by MD. Addendum: 07/30/18 at 1315 by ELLIS ROSARIO PT Amended: Links added.
[2018-07-30] MEDS: levETIRAcetam 500mg/NS100ml 100 ML IVPB SCH ×2 (09:52→21:40)
--- NOTE | 2018-07-30 10:19 | GI Progress Note ---
Assessment/Plan Problems: (1) Severe malnutrition ICD Codes: E43 - Unspecified severe protein-calorie malnutrition SNOMED: 52371034 (2) Encounter for PEG (percutaneous endoscopic gastrostomy) ICD Codes: Z43.1 - Encounter for attention to gastrostomy SNOMED: 490848258, 541936942 (3) Dehydration ICD Codes: E86.0 - Dehydration SNOMED: 39370591 (4) Drug abuse ICD Codes: F19.10 - Drug abuse SNOMED: 37958635 (5) Iron deficiency anemia ICD Codes: D50.9 - Iron deficiency anemia SNOMED: 87775843 (6) Anemia ICD Codes: D64.9 - Anemia, unspecified SNOMED: 901381717 Status: stable Status Narrative Discussed with Dr. Rubin. Assessment/Plan Patient refused PEG Diet advanced, patient tolerating okay for DC per GI standpoint The patient was seen and examined at bedside and all new and available data was reviewed in the patients chart. I agree with the above findings, impression and plan. (Patient seen earlier today. Signature stamp does not reflect patient encounter time.). - Mu Rubin MD Subjective Gastrointestinal/Abdominal: Reports: no symptoms Objective Last 24 Hour Vital Signs Date Time Temp Pulse Resp B/P (MAP) Pulse Ox O2 Delivery O2 Flow Rate FiO2 07/30/18 08:42 Nasal Cannula 2.0 07/30/18 08:00 98.5 57 20 138/53 100 Bi-pap 07/30/18 08:00 2.0 07/30/18 04:00 98.3 60 18 150/81 99 Nasal Cannula 2.0 07/30/18 04:00 58 07/30/18 04:00 2.0 30 07/30/18 03:25 68 16 98 Facial 30 07/30/18 02:40 64 18 98 Bi-Pap 30 07/30/18 01:33 64 16 98 Facial 30 07/30/18 00:00 2.0 30 07/30/18 00:00 62 07/30/18 00:00 98.5 65 19 146/75 99 Nasal Cannula 2.0 07/29/18 22:20 68 16 96 Facial 30 07/29/18 20:00 98.6 74 18 138/77 98 Nasal Cannula 2.0 07/29/18 20:00 76 07/29/18 20:00 98 Nasal Cannula 2.0 28 07/29/18 19:39 Nasal Cannula 2.0 07/29/18 16:00 60 07/29/18 16:00 2.0 07/29/18 16:00 98.1 53 22 125/55 97 Nasal Cannula 2.0 07/29/18 12:00 48 07/29/18 12:00 97.9 49 20 159/69 98 Nasal Cannula 2.0 07/29/18 12:00 2.0 Intake and Output 07/29/18 07/30/18 18:59 06:59 Intake Total 1062.5 ml 50 ml Output Total 800 ml Balance 262.5 ml 50 ml IV Total 1062.5 ml 50 ml Output Urine Total 800 ml # Bowel Movements 1 1 Laboratory Tests Test 07/30/18 07:15 White Blood Count 6.4 K/UL (4.8-10.8) # Red Blood Count 3.54 M/UL (4.70-6.10) L Hemoglobin 10.5 G/DL (14.2-18.0) L Hematocrit 31.3 % (42.0-52.0) L Mean Corpuscular Volume 88 FL (80-99) Mean Corpuscular Hemoglobin 29.8 PG (27.0-31.0) Mean Corpuscular Hemoglobin Concent 33.7 G/DL (32.0-36.0) Red Cell Distribution Width 13.7 % (11.6-14.8) Platelet Count 154 K/UL (150-450) Mean Platelet Volume 3.9 FL (6.5-10.1) L Neutrophils (%) (Auto) 69.9 % (45.0-75.0) Lymphocytes (%) (Auto) 14.1 % (20.0-45.0) L Monocytes (%) (Auto) 13.3 % (1.0-10.0) H Eosinophils (%) (Auto) 2.2 % (0.0-3.0) Basophils (%) (Auto) 0.4 % (0.0-2.0) Sodium Level 143 MMOL/L (136-145) Potassium Level 3.3 MMOL/L (3.5-5.1) L Chloride Level 109 MMOL/L (98-107) H Carbon Dioxide Level 26 MMOL/L (21-32) Anion Gap 8 mmol/L (5-15) Blood Urea Nitrogen 6 mg/dL (7-18) L Creatinine 0.8 MG/DL (0.55-1.30) Estimat Glomerular Filtration Rate mL/min (>60) Glucose Level 86 MG/DL (74-106) Calcium Level 8.5 MG/DL (8.5-10.1) Magnesium Level 1.5 MG/DL (1.8-2.4) L Height (Feet): 6 Weight (Pounds): 167 General Appearance: WD/WN, no apparent distress, alert, thin Cardiovascular: normal rate Respiratory/Chest: normal breath sounds, no respiratory distress Abdominal Exam: normal bowel sounds, non tender, soft Extremities: non-tender Objective Patient pulled NGT Gerald Verdin NP Jul 30, 2018 10:19
--- NOTE | 2018-07-30 11:21 | NUR ---
NURSE NOTES: D/C restraint at 1000. Told patient about not pulling out his PICC line, his hunter catheter and will need to call us in when he needs to get out of bed. He stated he understood. Will monitor patient closely for pulling out devices.
--- NOTE | 2018-07-30 11:43 | Diagnostic Imaging Report ---
Indication: Shortness of breath Technique: One view of the chest Comparison: 07/23/2018 Findings: Less optimal inspiration currently. There is increasing opacity at the right lung base. There is some blunting of the right costophrenic sulcus. Left lung and pleural space are largely clear an previously demonstrated interstitial congestion has improved Impression: Increased opacity of the right lung base, may reflect increasing infiltrate and/or pleural fluid, since prior study of one week earlier
--- NOTE | 2018-07-30 11:58 | NUR ---
RD ASSESSMENT & RECOMMENDATIONS SEE CARE ACTIVITY FOR COMPLETE ASSESSMENT DAILY ESTIMATED NEEDS: Needs based on Pulmonary 78kg 25-30 kcals/kg 5746-7459 total kcals 1-1.5 g protein/kg 78-117 g total protein 25-30 mL/kg 1057-7596 total fluid mLs NUTRITION DIAGNOSIS: Swallowing difficulty R/T respiratory status, h/o CVA/TIA as evidenced by pt is now s/p extubation, s/p pulling out NGT, PEG was recommended but pt refused, pt now on liquify pureed, NTL CURRENT DIET:REGULAR, liquify pureed, NTL PO DIET RECOMMENDATIONS: LOW NA/ texture per MEDICAL SCRIBE ENTERAL NUTRITION RECOMMENDATIONS: IF PT AGREES W/ PEG PLACEMENT: GLUCERNA 1.5 @55ml/hr x 24 hrs to provide 1320ml, 1980kcal, 109g prot, 1002ml free water * If pt agrees w/ PEG placement and w/ GI access, initiate Glucerna 1.5 @ 25ml/hr x 6hrs, advance 10ml q 4-6 hrs as tolerated to goal rate. * HOB over 30 degrees/ water flush per MD ADDITIONAL RECOMMENDATIONS: * Obtain calibrated bedscale wt for accurate CBW (scale reads 2.6kg/ error) * Add Ensure Enlive TID w/ meals -> Glucerna TID if elev BGs * Lytes daily, replete as needed (Low K, Low Mg) * Monitor POC -> pt declined PEG at this time, on oral diet * Monitor PO intake and tolerance closely
[2018-07-30 12:00] VITALS: BP 140/70
--- NOTE | 2018-07-30 12:08 | Infectious Diseases Prog Note ---
Assessment/Plan Assessment/Plan 72 yo male with PMHx of TBI, Seizure disorder, COPD, Encephalopathy, DM, HTN, CVA, Renal failure, CAD and Dysphagia s/p Peg who was brought to the ED on with intractable seizures. Respiratory failure Most probably due to seizures Active PNA unlikely Sputum Cx 07/12/18 - NF Bacteriuria UTI unlikely UCx - Staph h. S/P 2 days Vancomycin DVT right leg On Heparin TBI Seizure disorder COPD Encephalopathy DM HTN CVA Renal failure CAD Dysphagia s/p Peg Extubated 07/19/18 PLAN - Monitor off abx - 07/29/18 S/P Cefazolin #7 - 07/15/18 S/P Vancomycin and Zosyn #2 - Supportive care - Monitor CBC and Temps Subjective Allergies: Coded Allergies: HALOPERIDOL (Verified Allergy, Mild, [place] really bad, 07/05/16) Makes him irritable. THIORIDAZINE (Verified Allergy, Mild, [place] really bad, 07/05/16) Makes him violent TRAZODONE (Verified Allergy, Mild, [place] really bad, 07/05/16) Too strong; inability to move. Uncoded Allergies: PSYCHOTROPIC MEDICATION (Allergy, Mild, 08/13/14) Subjective Satting well on 2L NC Afebrile No Leukocytosis Objective Vital Signs Last 24 Hour Vital Signs Date Time Temp Pulse Resp B/P (MAP) Pulse Ox O2 Delivery O2 Flow Rate FiO2 07/30/18 08:42 Nasal Cannula 2.0 07/30/18 08:00 98.5 57 20 138/53 100 Bi-pap 07/30/18 08:00 60 07/30/18 08:00 2.0 07/30/18 04:00 98.3 60 18 150/81 99 Nasal Cannula 2.0 07/30/18 04:00 58 07/30/18 04:00 2.0 30 07/30/18 03:25 68 16 98 Facial 30 07/30/18 02:40 64 18 98 Bi-Pap 30 07/30/18 01:33 64 16 98 Facial 30 07/30/18 00:00 2.0 30 07/30/18 00:00 62 07/30/18 00:00 98.5 65 19 146/75 99 Nasal Cannula 2.0 07/29/18 22:20 68 16 96 Facial 30 6/16/19 20:00 98.6 74 18 138/77 98 Nasal Cannula 2.0 07/29/18 20:00 76 07/29/18 20:00 98 Nasal Cannula 2.0 28 07/29/18 19:39 Nasal Cannula 2.0 07/29/18 16:00 60 07/29/18 16:00 2.0 07/29/18 16:00 98.1 53 22 125/55 97 Nasal Cannula 2.0 Height (Feet): 6 Weight (Pounds): 167 Objective GEN: NAD HEENT: DMM, PERRL LUNGS: CTAB, No W/C CARDS: RRR, S1, S2, ABD: Soft, ND SKIN: Warm/dry, No rashes Laboratory Tests Test 07/30/18 07:15 White Blood Count 6.4 K/UL (4.8-10.8) # Red Blood Count 3.54 M/UL (4.70-6.10) L Hemoglobin 10.5 G/DL (14.2-18.0) L Hematocrit 31.3 % (42.0-52.0) L Mean Corpuscular Volume 88 FL (80-99) Mean Corpuscular Hemoglobin 29.8 PG (27.0-31.0) Mean Corpuscular Hemoglobin Concent 33.7 G/DL (32.0-36.0) Red Cell Distribution Width 13.7 % (11.6-14.8) Platelet Count 154 K/UL (150-450) Mean Platelet Volume 3.9 FL (6.5-10.1) L Neutrophils (%) (Auto) 69.9 % (45.0-75.0) Lymphocytes (%) (Auto) 14.1 % (20.0-45.0) L Monocytes (%) (Auto) 13.3 % (1.0-10.0) H Eosinophils (%) (Auto) 2.2 % (0.0-3.0) Basophils (%) (Auto) 0.4 % (0.0-2.0) Sodium Level 143 MMOL/L (136-145) Potassium Level 3.3 MMOL/L (3.5-5.1) L Chloride Level 109 MMOL/L (98-107) H Carbon Dioxide Level 26 MMOL/L (21-32) Anion Gap 8 mmol/L (5-15) Blood Urea Nitrogen 6 mg/dL (7-18) L Creatinine 0.8 MG/DL (0.55-1.30) Estimat Glomerular Filtration Rate mL/min (>60) Glucose Level 86 MG/DL (74-106) Calcium Level 8.5 MG/DL (8.5-10.1) Magnesium Level 1.5 MG/DL (1.8-2.4) L Current Medications Medications (Trade) Dose Ordered Sig/Jesi Route PRN Reason Start Time Stop Time Status Last Admin Dose Admin Acetaminophen (Tylenol) 650 mg Q6H PRN NG FOR TEMP > 100 OR PAIN 1-07/26/18 04:30 08/19/18 04:29 Albuterol/ Ipratropium (Albuterol/ Ipratropium) 3 ml Q4HRT PRN HHN sob 07/29/18 10:30 08/03/18 10:29 Chlorhexidine Gluconate (Candie-Hex 2%) 1 applic DAILY@2000 TOPIC 07/26/18 20:00 08/15/18 19:59 07/29/18 21:29 Dextrose (Dextrose 50%) 25 ml Q30M PRN IV Hypoglycemia 07/26/18 04:15 08/12/18 01:14 Dextrose (Dextrose 50%) 50 ml Q30M PRN IV Hypoglycemia 07/26/18 04:15 08/12/18 01:14 Dextrose/Sodium Chloride 1,000 ml @ 50 mls/hr Q20H IV 07/26/18 04:00 08/20/18 06:14 07/29/18 11:15 Famotidine (Pepcid I.v.) 20 mg Q12HR IVP 07/26/18 09:00 08/12/18 08:59 07/30/18 09:22 Insulin Aspart (NovoLOG) EVERY 6 HOURS SUBQ 07/26/18 06:00 08/12/18 12:29 07/30/18 11:50 Levetiracetam 100 ml @ 400 mls/hr Q12H IVPB 07/26/18 09:15 08/13/18 21:14 07/30/18 09:52 Levetiracetam 100 ml @ 400 mls/hr Q12HR IVPB 07/26/18 09:00 08/13/18 20:59 07/30/18 09:22 Spironolactone (Aldactone) 25 mg EVERY 12 HOURS ORAL 07/27/18 21:00 08/26/18 20:59 07/30/18 09:22 Valproate Sodium 1500 mg/Dextrose 100 ml @ 50 mls/hr Q12HR IV 07/29/18 09:00 08/28/18 08:59 07/30/18 09:22 Matteo Hunt MD Jul 30, 2018 12:08
--- NOTE | 2018-07-30 12:36 | NUR ---
CASE MANAGEMENT: REVIEW 07/30/2018 SI:ACUTE RESP FAILURE. T 98.4 HR 59 RR 20 B/P 140/70 SATS 100% ON 2L/NC K 3.3 CL 109 BUN 6 PHOS 1.5 IS:IVF @ 50 mL/HR INSULIN ASPART SUBQ Q6H VALPROATE IV Q12H KEPPRA IV Q12H KCL IV Q2H CEFAZOLIN IV Q8H TELE
--- NOTE | 2018-07-30 12:56 | Pulmonology Progress Note ---
Assessment/Plan Problems: (1) Acute respiratory failure (2) Acute metabolic encephalopathy (3) COPD (chronic obstructive pulmonary disease) (4) Acute renal failure (ARF) (5) Lumbar spondylosis (6) posttraumatic seizure disorder (7) Diabetes mellitus (8) Anemia (9) Chronic low back pain (10) Seizure disorder Assessment/Plan doing better doenst want any artificial feeding on Nasal Canula now respiratory treatment check electrolytes swallow study sliding scale diabetic diet symptomatic treatment start comadin dvt prophylaxis. Subjective ROS Limited/Unobtainable: No Constitutional: Reports: no symptoms HEENT: Repors: no symptoms Allergies: Coded Allergies: HALOPERIDOL (Verified Allergy, Mild, [place] really bad, 07/05/16) Makes him irritable. THIORIDAZINE (Verified Allergy, Mild, [place] really bad, 07/05/16) Makes him violent TRAZODONE (Verified Allergy, Mild, [place] really bad, 07/05/16) Too strong; inability to move. Uncoded Allergies: PSYCHOTROPIC MEDICATION (Allergy, Mild, 08/13/14) Objective Last 24 Hour Vital Signs Date Time Temp Pulse Resp B/P (MAP) Pulse Ox O2 Delivery O2 Flow Rate FiO2 07/30/18 12:00 98.4 59 20 140/70 100 Nasal Cannula 2.0 07/30/18 12:00 2.0 07/30/18 08:42 Nasal Cannula 2.0 07/30/18 08:00 98.5 57 20 138/53 100 Bi-pap 07/30/18 08:00 60 07/30/18 08:00 2.0 07/30/18 04:00 98.3 60 18 150/81 99 Nasal Cannula 2.0 07/30/18 04:00 58 07/30/18 04:00 2.0 30 07/30/18 03:25 68 16 98 Facial 30 07/30/18 02:40 64 18 98 Bi-Pap 30 07/30/18 01:33 64 16 98 Facial 30 07/30/18 00:00 2.0 30 07/30/18 00:00 62 07/30/18 00:00 98.5 65 19 146/75 99 Nasal Cannula 2.0 07/29/18 22:20 68 16 96 Facial 30 07/29/18 20:00 98.6 74 18 138/77 98 Nasal Cannula 2.0 07/29/18 20:00 76 07/29/18 20:00 98 Nasal Cannula 2.0 28 07/29/18 19:39 Nasal Cannula 2.0 07/29/18 16:00 60 07/29/18 16:00 2.0 07/29/18 16:00 98.1 53 22 125/55 97 Nasal Cannula 2.0 Intake and Output 07/29/18 07/30/18 19:00 07:00 Intake Total 1062.5 ml 50 ml Output Total 800 ml Balance 262.5 ml 50 ml IV Total 1062.5 ml 50 ml Output Urine Total 800 ml # Bowel Movements 1 1 General Appearance: WD/WN HEENT: normocephalic, atraumatic Respiratory/Chest: chest wall non-tender, lungs clear Cardiovascular: normal peripheral pulses, normal rate Abdomen: normal bowel sounds, no organomegaly Laboratory Tests 07/30/18 07:15: White Blood Count 6.4#, Red Blood Count 3.54L, Hemoglobin 10.5L, Hematocrit 31.3L, Mean Corpuscular Volume 88, Mean Corpuscular Hemoglobin 29.8, Mean Corpuscular Hemoglobin Concent 33.7, Red Cell Distribution Width 13.7, Platelet Count 154, Mean Platelet Volume 3.9L, Neutrophils (%) (Auto) 69.9, Lymphocytes ( %) (Auto) 14.1L, Monocytes (%) (Auto) 13.3H, Eosinophils (%) (Auto) 2.2, Basophils (%) (Auto) 0.4, Sodium Level 143, Potassium Level 3.3L, Chloride Level 109H, Carbon Dioxide Level 26, Anion Gap 8, Blood Urea Nitrogen 6L, Creatinine 0.8, Estimat Glomerular Filtration Rate , Glucose Level 86, Calcium Level 8.5, Magnesium Level 1.5L Current Medications Medications (Trade) Dose Ordered Sig/Jesi Route PRN Reason Start Time Stop Time Status Last Admin Dose Admin Acetaminophen (Tylenol) 650 mg Q6H PRN NG FOR TEMP > 100 OR PAIN 1-07/26/18 04:30 08/19/18 04:29 Albuterol/ Ipratropium (Albuterol/ Ipratropium) 3 ml Q4HRT PRN HHN sob 07/29/18 10:30 08/03/18 10:29 Chlorhexidine Gluconate (Candie-Hex 2%) 1 applic DAILY@1999 TOPIC 07/26/18 20:00 08/15/18 19:59 07/29/18 21:29 Dextrose (Dextrose 50%) 25 ml Q30M PRN IV Hypoglycemia 07/26/18 04:15 08/12/18 01:14 Dextrose (Dextrose 50%) 50 ml Q30M PRN IV Hypoglycemia 07/26/18 04:15 08/12/18 01:14 Dextrose/Sodium Chloride 1,000 ml @ 50 mls/hr Q20H IV 07/26/18 04:00 08/20/18 06:14 07/29/18 11:15 Famotidine (Pepcid I.v.) 20 mg Q12HR IVP 07/26/18 09:00 08/12/18 08:59 07/30/18 09:22 Insulin Aspart (NovoLOG) EVERY 6 HOURS SUBQ 07/26/18 06:00 08/12/18 12:29 07/30/18 11:50 Levetiracetam 100 ml @ 400 mls/hr Q12H IVPB 07/26/18 09:15 08/13/18 21:14 07/30/18 09:52 Levetiracetam 100 ml @ 400 mls/hr Q12HR IVPB 07/26/18 09:00 08/13/18 20:59 07/30/18 09:22 Spironolactone (Aldactone) 25 mg EVERY 12 HOURS ORAL 07/27/18 21:00 08/26/18 20:59 07/30/18 09:22 Valproate Sodium 1500 mg/Dextrose 100 ml @ 50 mls/hr Q12HR IV 07/29/18 09:00 08/28/18 08:59 07/30/18 09:22 Maria E Shine MD Jul 30, 2018 12:56
--- NOTE | 2018-07-30 13:00 | Pulmonology Progress Note ---
Assessment/Plan Problems: (1) At high risk for aspiration (2) DVT (deep venous thrombosis) (3) COPD (chronic obstructive pulmonary disease) (4) Lumbar spondylosis (5) posttraumatic seizure disorder (6) Diabetes mellitus (7) Anemia (8) Chronic low back pain (9) Seizure disorder Assessment/Plan Pt lacks capacity to decide about Gtube insertion on Nasal Canula now respiratory treatment check electrolytes swallow study sliding scale diabetic diet symptomatic treatment dvt prophylaxis. Subjective ROS Limited/Unobtainable: No Constitutional: Reports: no symptoms HEENT: Repors: no symptoms Respiratory: Reports: no symptoms Allergies: Coded Allergies: HALOPERIDOL (Verified Allergy, Mild, [place] really bad, 07/05/16) Makes him irritable. THIORIDAZINE (Verified Allergy, Mild, [place] really bad, 07/05/16) Makes him violent TRAZODONE (Verified Allergy, Mild, [place] really bad, 07/05/16) Too strong; inability to move. Uncoded Allergies: PSYCHOTROPIC MEDICATION (Allergy, Mild, 08/13/14) Objective Last 24 Hour Vital Signs Date Time Temp Pulse Resp B/P (MAP) Pulse Ox O2 Delivery O2 Flow Rate FiO2 07/30/18 12:00 98.4 59 20 140/70 100 Nasal Cannula 2.0 07/30/18 12:00 2.0 07/30/18 08:42 Nasal Cannula 2.0 07/30/18 08:00 98.5 57 20 138/53 100 Bi-pap 07/30/18 08:00 60 07/30/18 08:00 2.0 07/30/18 04:00 98.3 60 18 150/81 99 Nasal Cannula 2.0 07/30/18 04:00 58 07/30/18 04:00 2.0 30 07/30/18 03:25 68 16 98 Facial 30 07/30/18 02:40 64 18 98 Bi-Pap 30 07/30/18 01:33 64 16 98 Facial 30 07/30/18 00:00 2.0 30 07/30/18 00:00 62 07/30/18 00:00 98.5 65 19 146/75 99 Nasal Cannula 2.0 07/29/18 22:20 68 16 96 Facial 30 07/29/18 20:00 98.6 74 18 138/77 98 Nasal Cannula 2.0 6/16/19 20:00 76 07/29/18 20:00 98 Nasal Cannula 2.0 28 07/29/18 19:39 Nasal Cannula 2.0 07/29/18 16:00 60 07/29/18 16:00 2.0 07/29/18 16:00 98.1 53 22 125/55 97 Nasal Cannula 2.0 Intake and Output 07/29/18 07/30/18 19:00 07:00 Intake Total 1062.5 ml 50 ml Output Total 800 ml Balance 262.5 ml 50 ml IV Total 1062.5 ml 50 ml Output Urine Total 800 ml # Bowel Movements 1 1 General Appearance: WD/WN HEENT: normocephalic, anicteric Respiratory/Chest: lungs clear, normal breath sounds, no accessory muscle use Cardiovascular: normal peripheral pulses, regularly irregular Abdomen: normal bowel sounds, soft, non tender, no organomegaly Laboratory Tests 07/30/18 07:15: White Blood Count 6.4#, Red Blood Count 3.54L, Hemoglobin 10.5L, Hematocrit 31.3L, Mean Corpuscular Volume 88, Mean Corpuscular Hemoglobin 29.8, Mean Corpuscular Hemoglobin Concent 33.7, Red Cell Distribution Width 13.7, Platelet Count 154, Mean Platelet Volume 3.9L, Neutrophils (%) (Auto) 69.9, Lymphocytes ( %) (Auto) 14.1L, Monocytes (%) (Auto) 13.3H, Eosinophils (%) (Auto) 2.2, Basophils (%) (Auto) 0.4, Sodium Level 143, Potassium Level 3.3L, Chloride Level 109H, Carbon Dioxide Level 26, Anion Gap 8, Blood Urea Nitrogen 6L, Creatinine 0.8, Estimat Glomerular Filtration Rate , Glucose Level 86, Calcium Level 8.5, Magnesium Level 1.5L Current Medications Medications (Trade) Dose Ordered Sig/Jesi Route PRN Reason Start Time Stop Time Status Last Admin Dose Admin Acetaminophen (Tylenol) 650 mg Q6H PRN NG FOR TEMP > 100 OR PAIN 1-07/26/18 04:30 08/19/18 04:29 Albuterol/ Ipratropium (Albuterol/ Ipratropium) 3 ml Q4HRT PRN HHN sob 07/29/18 10:30 08/03/18 10:29 Chlorhexidine Gluconate (Candie-Hex 2%) 1 applic DAILY@2000 TOPIC 07/26/18 20:00 08/15/18 19:59 07/29/18 21:29 Dextrose (Dextrose 50%) 25 ml Q30M PRN IV Hypoglycemia 07/26/18 04:15 08/12/18 01:14 Dextrose (Dextrose 50%) 50 ml Q30M PRN IV Hypoglycemia 07/26/18 04:15 08/12/18 01:14 Famotidine (Pepcid I.v.) 20 mg Q12HR IVP 07/26/18 09:00 08/12/18 08:59 07/30/18 09:22 Insulin Aspart (NovoLOG) EVERY 6 HOURS SUBQ 07/26/18 06:00 08/12/18 12:29 07/30/18 11:50 Levetiracetam 100 ml @ 400 mls/hr Q12H IVPB 07/26/18 09:15 08/13/18 21:14 07/30/18 09:52 Levetiracetam 100 ml @ 400 mls/hr Q12HR IVPB 07/26/18 09:00 08/13/18 20:59 07/30/18 09:22 Spironolactone (Aldactone) 25 mg EVERY 12 HOURS ORAL 07/27/18 21:00 08/26/18 20:59 07/30/18 09:22 Valproate Sodium 1500 mg/Dextrose 100 ml @ 50 mls/hr Q12HR IV 07/29/18 09:00 08/28/18 08:59 07/30/18 09:22 Warfarin Sodium (Coumadin per pharmacy) 1 ea DAILY PRN MISC Per rx protocol 07/30/18 13:00 08/29/18 12:59 Maria E Ruelas MD Jul 30, 2018 13:00
[2018-07-30] MEDS ORDERED: Heparin 5000 units/ml inj IV ONE (13:15)
[2018-07-30] MEDS ORDERED: Heparin 25,000u/D5W 500ml 500 ML IV SCH (13:17)
[2018-07-30 14:22] LABS: BASOPHILS % (AUTO) 0.4 % (0.0-2.0); EOSINOPHILS % (AUTO) 2.3 % (0.0-3.0); HEMATOCRIT 32.2 % (42.0-52.0); HEMOGLOBIN 10.8 G/DL (14.2-18.0); LYMPHOCYTES % (AUTO) 16.3 % (20.0-45.0); MEAN CORPUSCULAR VOLUME 88 FL (80-99); MONOCYTES % (AUTO) 11.6 % (1.0-10.0); NEUTROPHILS % (AUTO) 69.5 % (45.0-75.0); PLATELET COUNT 142 K/UL (150-450); RED BLOOD COUNT 3.66 M/UL (4.70-6.10); RED CELL DISTRIBUTION WIDTH 13.7 % (11.6-14.8); WHITE BLOOD COUNT 5.5 K/UL (4.8-10.8)
--- NOTE | 2018-07-30 15:49 | NUR ---
ST NOTE: ST WEEKLY AND SWALLOW STATUS ST WEEKLY: PT DID NOT MEET PO INTAKE GOALS. NURSING STAFF MET ASPIRATION PRECAUTIONS GOALS. CONTINUE SKILLED ST SERVICE. CURRENT STATUS: REVIEWED CHART. DIET IS ORDERED WITH STRICT ASPIRATION PRECAUTIONS DUE TO PT REFUSED PEG PLACEMENT. PER MD, PT IS LACK OF CAPACITY TO DECIDE PEG PLACEMENT. PER RN, PT WAS ABLE TO TOLERATE BREAKFAST GOOD, HOWEVER, PT COUGHED DURING LUNCH. DISCUSSED WITH RN RE:PT'S CONDITIONS AND MODIFIED BARIUM SWALLOW STUDY RESULT AND RECOMMENDATIONS. PT REFUSED PEG PLACEMENT AND PULLED OUT NGT. CONTINUE PO DIET FOR QUALITY OF LIFE WITH STRICT ASPIRATION PRECAUTIONS. D/W THE STAFF.
[2018-07-30 16:00] VITALS: BP 130/85
--- NOTE | 2018-07-30 16:27 | NUR ---
NURSE NOTES: D/C hunter at 1400 and applied condom catheter. Patient saturated one pad with urine post d/c.
--- NOTE | 2018-07-30 17:54 | NUR ---
NURSE NOTES: Patient's blood glucose was 63. I fed him 15gm thickened OJ, patient tolerated well, no s/s dizziness or blurry vision. I rechecked his blood glucose 15 minutes after and it was 90. It's WNL. Will continue to monitor closely.
--- NOTE | 2018-07-30 18:03 | NUR ---
NURSE NOTES: Left message to Dr. Mejía, awaiting response. Addendum: 07/30/18 at 1856 by Nelia Pastrana RN Left message to Dr. Mejía about patient's hypoglycemic state, awaiting response.
--- NOTE | 2018-07-30 18:48 | Internal Med Progress Note ---
Subjective Date of Service: Jul 30, 2018 Physician Name Rojo,Michael Attending Physician Will Mejía MD Current Medications Medications (Trade) Dose Ordered Sig/Jesi Route PRN Reason Start Time Stop Time Status Last Admin Dose Admin Acetaminophen (Tylenol) 650 mg Q6H PRN NG FOR TEMP > 100 OR PAIN 1-6 07/26/18 04:30 08/19/18 04:29 Albuterol/ Ipratropium (Albuterol/ Ipratropium) 3 ml Q4HRT PRN HHN sob 07/29/18 10:30 08/03/18 10:29 Chlorhexidine Gluconate (Cnadie-Hex 2%) 1 applic DAILY@2000 TOPIC 07/26/18 20:00 08/15/18 19:59 07/29/18 21:29 Dextrose (Dextrose 50%) 25 ml Q30M PRN IV Hypoglycemia 07/26/18 04:15 08/12/18 01:14 Dextrose (Dextrose 50%) 50 ml Q30M PRN IV Hypoglycemia 07/26/18 04:15 08/12/18 01:14 Famotidine (Pepcid I.v.) 20 mg Q12HR IVP 07/26/18 09:00 08/12/18 08:59 07/30/18 09:22 Heparin Sodium/ Dextrose 500 ml @ 27.27 mls/ hr ADJUST PER PROTOCOL IV 07/30/18 13:17 08/29/18 13:16 07/30/18 14:11 Insulin Aspart (NovoLOG) EVERY 6 HOURS SUBQ 07/26/18 06:00 08/12/18 12:29 07/30/18 11:50 Levetiracetam 100 ml @ 400 mls/hr Q12H IVPB 07/26/18 09:15 08/13/18 21:14 07/30/18 09:52 Levetiracetam 100 ml @ 400 mls/hr Q12HR IVPB 07/26/18 09:00 08/13/18 20:59 07/30/18 09:22 Spironolactone (Aldactone) 25 mg EVERY 12 HOURS ORAL 07/27/18 21:00 08/26/18 20:59 07/30/18 09:22 Valproate Sodium 1500 mg/Dextrose 100 ml @ 50 mls/hr Q12HR IV 07/29/18 09:00 08/28/18 08:59 07/30/18 09:22 Allergies: Coded Allergies: HALOPERIDOL (Verified Allergy, Mild, [place] really bad, 07/05/16) Makes him irritable. THIORIDAZINE (Verified Allergy, Mild, [place] really bad, 07/05/16) Makes him violent TRAZODONE (Verified Allergy, Mild, [place] really bad, 07/05/16) Too strong; inability to move. Uncoded Allergies: PSYCHOTROPIC MEDICATION (Allergy, Mild, 08/13/14) ROS Limited/Unobtainable: No Constitutional: Reports: no symptoms HEENT: Reports: no symptoms Cardiovascular: Reports: no symptoms Respiratory: Reports: no symptoms Gastrointestinal/Abdominal: Reports: no symptoms Genitourinary: Reports: no symptoms Neurologic/Psychiatric: Reports: no symptoms Subjective 72 YO M admitted with breakthrough seizure. Now respiratory failure. Extubated 07/19/18; nasal canula. Cover for Int Connor-Dr Mejía. Patient Refused PEG Objective Last Vital Signs Date Time Temp Pulse Resp B/P (MAP) Pulse Ox O2 Delivery O2 Flow Rate FiO2 07/30/18 16:00 54 07/30/18 16:00 2.0 07/30/18 16:00 98.1 20 130/85 100 Nasal Cannula 07/30/18 04:00 30 Laboratory Tests Test 07/30/18 07:15 07/30/18 13:25 07/30/18 14:00 White Blood Count 6.4 K/UL (4.8-10.8) # 5.5 K/UL (4.8-10.8) Red Blood Count 3.54 M/UL (4.70-6.10) L 3.66 M/UL (4.70-6.10) L Hemoglobin 10.5 G/DL (14.2-18.0) L 10.8 G/DL (14.2-18.0) L Hematocrit 31.3 % (42.0-52.0) L 32.2 % (42.0-52.0) L Mean Corpuscular Volume 88 FL (80-99) 88 FL (80-99) Mean Corpuscular Hemoglobin 29.8 PG (27.0-31.0) 29.5 PG (27.0-31.0) Mean Corpuscular Hemoglobin Concent 33.7 G/DL (32.0-36.0) 33.5 G/DL (32.0-36.0) Red Cell Distribution Width 13.7 % (11.6-14.8) 13.7 % (11.6-14.8) Platelet Count 154 K/UL (150-450) 142 K/UL (150-450) L Mean Platelet Volume 3.9 FL (6.5-10.1) L 3.7 FL (6.5-10.1) L Neutrophils (%) (Auto) 69.9 % (45.0-75.0) 69.5 % (45.0-75.0) Lymphocytes (%) (Auto) 14.1 % (20.0-45.0) L 16.3 % (20.0-45.0) L Monocytes (%) (Auto) 13.3 % (1.0-10.0) H 11.6 % (1.0-10.0) H Eosinophils (%) (Auto) 2.2 % (0.0-3.0) 2.3 % (0.0-3.0) Basophils (%) (Auto) 0.4 % (0.0-2.0) 0.4 % (0.0-2.0) Sodium Level 143 MMOL/L (136-145) Potassium Level 3.3 MMOL/L (3.5-5.1) L Chloride Level 109 MMOL/L (98-107) H Carbon Dioxide Level 26 MMOL/L (21-32) Anion Gap 8 mmol/L (5-15) Blood Urea Nitrogen 6 mg/dL (7-18) L Creatinine 0.8 MG/DL (0.55-1.30) Estimat Glomerular Filtration Rate mL/min (>60) Glucose Level 86 MG/DL (74-106) Calcium Level 8.5 MG/DL (8.5-10.1) Magnesium Level 1.5 MG/DL (1.8-2.4) L Activated Partial Thromboplast Time 36 SEC (23-33) H Intake and Output 07/29/18 07/30/18 19:00 07:00 Intake Total 1062.5 ml 50 ml Output Total 800 ml Balance 262.5 ml 50 ml IV Total 1062.5 ml 50 ml Output Urine Total 800 ml # Bowel Movements 1 1 Objective PHYSICAL EXAMINATION: GENERAL: The patient is a thin-appearing male, in no apparent distress. HEENT: Eyes, pupils are equal and responsive to light and accommodation. Extraocular movements are intact. NECK: Supple. No lymphadenopathy. CHEST: Nasal canula; Few expiratory wheezes bilaterally. Otherwise, without crackles or rales. CARDIOVASCULAR: Tachycardic, regular rate. S1 and S2 are normal without murmurs, rubs, or gallops. ABDOMEN: Soft, nontender, and nondistended. Positive bowel sounds. No evidence of hepatosplenomegaly. Currently, no rebound or guarding noted. EXTREMITIES: Negative for clubbing, cyanosis, or edema. RECTAL/GENITAL: Not performed. NEUROLOGICALLY: Unable to assess secondary to the patient's mental status. Assessment/Plan Assessment/Plan ASSESSMENT: This is a 72-year-old male. 1. Intractable seizures. 2. Respiratory failure. 3. Probable pneumonia of the right upper lobe. 4. History of seizure disorder. 5. Chronic obstructive pulmonary disease. 6. Diabetes type 2. 7. Hypertension. 8. Metabolic encephalopathy. 9. Chronic obstructive pulmonary disease. 10. Chronic renal failure. 11. Traumatic brain injury. 12. Gastroesophageal reflux disease. 13. Coronary artery disease. 14. Anemia. 15. History of gastrointestinal hemorrhage. 16. Hypercholesteremia. 17. Cerebrovascular disease, status post cerebrovascular accident. 18. Dysphagia. 19. Prostate cancer with mets 20. UTI=staph haemolyticus 21. Protein calorie Malnutrition TREATMENT: 1. Intractable seizure. A Neurology consultation has been obtained. The patient has been started on Ativan intravenously. We will follow recommendations of Neurology. Continue Keppra, Dilantin, and Depakote as above. 2. Respiratory failure. Pulmonary consultation has been obtained with Dr. Maria E Shine. The patient is S/P extubation 07/19/18 now on nasal canula We will follow recommendations of Pulmonary. 3. Chronic obstructive pulmonary disease. As above, a Pulmonary consultation has been obtained with Dr. Maria E Shine. 4. Diabetes type 2. The patient has been placed on a NovoLog sliding scale. 5. Hypertension. The patient is currently hypotensive. 6. Metabolic encephalopathy. 7. Renal failure. 8. Traumatic brain injury. 9. Gastroesophageal reflux disease. 10. Coronary artery disease. 11. Anemia. 12. Gastrointestinal hemorrhage. 13. Hypercholesterolemia. 14. Cerebrovascular disease. 15. Dysphagia, status post PEG placement 16. Abx=cefazolin 17. ID consult=Dr Hunt 18. Patient refused PEG-see psych note concerning competence. Michael Rojo MD Jul 30, 2018 18:48
--- NOTE | 2018-07-30 19:14 | NUR ---
HAND-OFF: Report given to RONI Moreno. Pt is in stable condition; plan of care endorsed.
--- NOTE | 2018-07-30 19:15 | NUR ---
NURSE NOTES: rECEIVED PT from RONI Kumar. Pt awake, alert, and congested. Bed in lowest position. Call light within reach. Heparin drip running in PICC line. Will continue to monitor.
--- NOTE | 2018-07-30 19:45 | Electroencephalogram ---
EEG REPORT DATE OF TRACIN07/28/2018 REQUESTING PHYSICIAN: Abad Iniguez M.D. READING PHYSICIAN: Jori Donahue M.D. PROCEDURE PERFORMED: Electroencephalogram. HISTORY: This EEG was performed on a 72-year-old gentleman with history of multiple medical problems including an alteration in mental state and questionable seizures. The purpose of this EEG was to evaluate the patient for the degree and type of cerebral dysfunction and to exclude ongoing inter-ictal or ictal phenomena. TECHNICAL NOTE: This EEG was performed on a [employer] with electrodes placed on the scalp according to the International 10-20 system. [id number] and [id number] montages were used. The EEG was technically satisfactory and was performed in the awake and drowsy states. OBSERVATIONS: In the best awake state, the background activity consisted of 8.5- 9 Hz alpha activity in the posterior derivations. Drowsiness was characterized by slowing of the background in the 4-5 Hz theta range. Throughout the tracing, bilateral frontal polymorphic delta activity was noted. In addition, F3 and F4 sharp and slow wave discharges were also seen sometimes occurring singly and at other times in a brief runs of 4 to 5 discharges. No definite electrographic or clinical seizures were noted. IMPRESSION: This is an abnormal EEG characterized by: 1. Polymorphic delta activity seen in the frontal derivations. 2. Bilateral frontal sharp and slow wave discharges occurring either singly or in brief runs. COMMENT: This study is consistent with: 1. Bilateral frontal dysfunction. 2. Epileptogenic foci in the right and left frontal area with interictal discharges seen on this EEG. Jori Donahue M.D., M.S.P.H. DR: Reyna JOB#: [id number] [facility] CAMPUSDejan
[2018-07-30 20:00] VITALS: BP 143/71
[2018-07-30] MEDS: Dyna-Hex 2% Top Sol 2oz TOPIC SCH (21:41)
--- NOTE | 2018-07-30 22:14 | Neurology Progress Note ---
Interim History Interim History ROS Limited/Unobtainable: No Complaints: AMS Interim History This visit was performed on July 30, [address] Abad Iniguez Review of Systems Neuro Review of Systems Patient is alert and oriented, doing well today. All Systems: reviewed and negative except above Objective Physical Exam Last Vital Signs Date Time Temp Pulse Resp B/P (MAP) Pulse Ox O2 Delivery O2 Flow Rate FiO2 07/30/18 16:00 54 07/30/18 16:00 2.0 07/30/18 16:00 98.1 20 130/85 100 Nasal Cannula 07/30/18 04:00 30 Laboratory Tests Test 07/30/18 07:15 07/30/18 13:25 07/30/18 14:00 07/30/18 20:50 White Blood Count 6.4 K/UL (4.8-10.8) # 5.5 K/UL (4.8-10.8) Red Blood Count 3.54 M/UL (4.70-6.10) L 3.66 M/UL (4.70-6.10) L Hemoglobin 10.5 G/DL (14.2-18.0) L 10.8 G/DL (14.2-18.0) L Hematocrit 31.3 % (42.0-52.0) L 32.2 % (42.0-52.0) L Mean Corpuscular Volume 88 FL (80-99) 88 FL (80-99) Mean Corpuscular Hemoglobin 29.8 PG (27.0-31.0) 29.5 PG (27.0-31.0) Mean Corpuscular Hemoglobin Concent 33.7 G/DL (32.0-36.0) 33.5 G/DL (32.0-36.0) Red Cell Distribution Width 13.7 % (11.6-14.8) 13.7 % (11.6-14.8) Platelet Count 154 K/UL (150-450) 142 K/UL (150-450) L Mean Platelet Volume 3.9 FL (6.5-10.1) L 3.7 FL (6.5-10.1) L Neutrophils (%) (Auto) 69.9 % (45.0-75.0) 69.5 % (45.0-75.0) Lymphocytes (%) (Auto) 14.1 % (20.0-45.0) L 16.3 % (20.0-45.0) L Monocytes (%) (Auto) 13.3 % (1.0-10.0) H 11.6 % (1.0-10.0) H Eosinophils (%) (Auto) 2.2 % (0.0-3.0) 2.3 % (0.0-3.0) Basophils (%) (Auto) 0.4 % (0.0-2.0) 0.4 % (0.0-2.0) Sodium Level 143 MMOL/L (136-145) Potassium Level 3.3 MMOL/L (3.5-5.1) L Chloride Level 109 MMOL/L (98-107) H Carbon Dioxide Level 26 MMOL/L (21-32) Anion Gap 8 mmol/L (5-15) Blood Urea Nitrogen 6 mg/dL (7-18) L Creatinine 0.8 MG/DL (0.55-1.30) Estimat Glomerular Filtration Rate mL/min (>60) Glucose Level 86 MG/DL (74-106) Calcium Level 8.5 MG/DL (8.5-10.1) Magnesium Level 1.5 MG/DL (1.8-2.4) L Activated Partial Thromboplast Time 36 SEC (23-33) H 95 SEC (23-33) H General: well developed, well nourished Head: normocophalic Neck: no rigidity EENT: benign Neurologic Exam Mental Status: awake, alert, oriented x4, normal recent memory, normal remote memory, preserved visuospatial function Speech: normal speech, no dysarthia Language: other Cranial Nerve II: fundus normal, visual dodd, no papilledema Cranial Nerves III, IV, : PERRLA, EOMI Cranial Nerve V: normal facial sensations, temporales function normal, masseters function normal, pterygoids function normal, other Cranial Nerve VII: no facial asymmetry, normal facial expressions Cranial Nerve VIII: normal hearing, no nystagmus Cranial Nerve IX: normal palate elevation, gag response Cranial Nerve X: no voice hoarseness Cranial Nerve XI: SCM symmetric, trapezii function normal, other Cranial Nerve XII: tongue midline, no tongue atrophy/fasciculations, other Motor System: normal muscle tone, strength 5/5, no involuntary movement, no muscle wasting Sensory: normal pinprick, normal light touch, other Coordination: normal finger to nose bilaterally, normal heel to escalante bilaterally Deep Tendon Reflexes: 1+ bicep (L), 1+ bicep (R), 1+ tricep (L), 1+ tricep (R) , 1+ brachioradialis (L), 1+ brachioradialis (R), 1+ knee (L), 1+ knee (R), 1+ ankle (L), 1+ ankle (R) Reflexes: flexor plantar (L), flexor plantar (R); extensor plantar (L), extensor plantar (R) Stance: normal Gait: stable Impression/Recommendations Problems: (1) Acute metabolic encephalopathy (2) Acute encephalopathy (3) Drug abuse (4) COPD (chronic obstructive pulmonary disease) (5) Diabetes mellitus (6) Anemia (7) Acute respiratory failure (8) Seizure disorder (9) UTI (urinary tract infection) (10) Prostate cancer, primary, 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 site (11) Iron deficiency anemia (12) Acute renal failure (ARF) Status: doing well, stable, progressing, tolerating diet, ambulating well Recommendations AED conversion to oral meds Keppra 1500mg BID Valproate 1000mg BID Monitor LFTs intermittently. Recheck Valproate Level Slightly elevated Valproate level following increased dose secondary to seeing subclinical seizure activity Transition to oral Keppra 1500mg BID and Depakote 1500mg BID Recheck Depakote level Q4 hr neuro obs Final EEG before discharge if possible. If not possible and patient remains stable, he may be discharged with instructions for follow up EEG. SBP<140 MRI Brain results pending. Patient stable for discharge from a neurological perspective. Kenia Pompa N.P. Jul 30, 2018 22:14
[2018-07-31] VITALS (7 sets, daily range): BP systolic 117–166; BP diastolic 41–76
--- NOTE | 2018-07-31 00:15 | Progress Note ---
DATE: 07/30/2018 SUBJECTIVE: The patient is in bed. The patient is in no acute distress. He has episodes of anxiety. Unable to understand, process, communicate, nor appreciate the informations given to him. The patient is having poor insight. MENTAL STATUS EXAMINATION: The patient is alert, confused, disoriented. Mood is neutral to anxious. Affect is constricted, congruent with mood. Thought process is concrete. Thought content, no suicidal or homicidal ideations. ASSESSMENT: Dementia. The patient lacks capacity to make decisions. PLAN: We will continue the current medications. Provide the patient with reality orientation and supportive therapy. Rayna Yu M.D. DR: MEHREEN JOB#: [id number] CC:
--- NOTE | 2018-07-31 00:17 | NUR ---
NURSE NOTES: Called and left a message with Dr. Mejía requesting to change pts BG check from, Q6 to AC/HS since pt is no longer on NG tube feedings. Awaiting call back.
[2018-07-31 04:59] LABS: BASOPHILS % (AUTO) 1.5 % (0.0-2.0); EOSINOPHILS % (AUTO) 2.3 % (0.0-3.0); HEMATOCRIT 32.3 % (42.0-52.0); HEMOGLOBIN 10.8 G/DL (14.2-18.0); LYMPHOCYTES % (AUTO) 17.6 % (20.0-45.0); MEAN CORPUSCULAR VOLUME 88 FL (80-99); MONOCYTES % (AUTO) 16.6 % (1.0-10.0); PLATELET COUNT 154 K/UL (150-450); RED BLOOD COUNT 3.68 M/UL (4.70-6.10); RED CELL DISTRIBUTION WIDTH 14.1 % (11.6-14.8); WHITE BLOOD COUNT 5.6 K/UL (4.8-10.8)
[2018-07-31 05:22] LABS: ANION GAP 10 mmol/L (5-15); BLOOD UREA NITROGEN 8 mg/dL (7-18); CALCIUM 7.9 MG/DL (8.5-10.1); CARBON DIOXIDE 23 MMOL/L (21-32); CHLORIDE 107 MMOL/L (98-107); CREATININE 0.8 MG/DL (0.55-1.30); POTASSIUM 3.7 MMOL/L (3.5-5.1); SODIUM 140 MMOL/L (136-145)
[2018-07-31] MEDS: NovoLOG Insulin Flexpen SUBQ SCH ×5 (06:01→21:00)
--- NOTE | 2018-07-31 07:35 | NUR ---
NURSE NOTES: Bedside report from RONI Moreno. Patient is awake and about to eat breakfast. No s/s of distress or SOB. Denies pain. PICC line is patent, no s/s of redness nor infection. Patient on O2 2L. Bed at lowest position, call light within reach. No more condom catheter. Patient eats independently but we still monitor him closely. He stated he feels very sleepy.
--- NOTE | 2018-07-31 07:40 | NUR ---
HAND-OFF: Report given to RONI Kumar. Pt stable.
[2018-07-31] MEDS ORDERED: Heparin 25,000u/D5W 500ml 500 ML IV SCH ×4 (08:00→21:15)
[2018-07-31] MEDS: Spironolactone 25mg tab ORAL SCH ×2 (08:06→20:59)
[2018-07-31] MEDS: levETIRAcetam 1,000mg/NS100ml 100 ML IVPB SCH (08:07)
[2018-07-31] MEDS: levETIRAcetam 500mg/NS100ml 100 ML IVPB SCH (08:31)
--- NOTE | 2018-07-31 09:19 | Infectious Diseases Prog Note ---
Assessment/Plan Assessment/Plan 72 yo male with PMHx of TBI, Seizure disorder, COPD, Encephalopathy, DM, HTN, CVA, Renal failure, CAD and Dysphagia s/p Peg who was brought to the ED on with intractable seizures. Respiratory failure Most probably due to seizures Active PNA unlikely Sputum Cx 07/12/18 - NF Bacteriuria UTI unlikely UCx - Staph h. S/P 2 days Vancomycin DVT right leg On Heparin TBI Seizure disorder COPD Encephalopathy DM HTN CVA Renal failure CAD Dysphagia s/p Peg Extubated 07/19/18 PLAN - Continue to monitor off abx - 07/29/18 S/P Cefazolin #7 - 07/15/18 S/P Vancomycin and Zosyn #2 - Supportive care - Monitor CBC and Temps Subjective Allergies: Coded Allergies: HALOPERIDOL (Verified Allergy, Mild, [place] really bad, 07/05/16) Makes him irritable. THIORIDAZINE (Verified Allergy, Mild, [place] really bad, 07/05/16) Makes him violent TRAZODONE (Verified Allergy, Mild, [place] really bad, 07/05/16) Too strong; inability to move. Uncoded Allergies: PSYCHOTROPIC MEDICATION (Allergy, Mild, 08/13/14) Subjective MARIANA Afebrile No Leukocytosis Objective Vital Signs Last 24 Hour Vital Signs Date Time Temp Pulse Resp B/P (MAP) Pulse Ox O2 Delivery O2 Flow Rate FiO2 07/31/18 08:43 98 Nasal Cannula 2.0 28 07/31/18 04:00 69 07/31/18 04:00 2.0 07/31/18 04:00 98.4 66 18 158/70 98 Nasal Cannula 2.0 07/31/18 02:04 63 134/65 07/31/18 00:00 98.1 62 18 166/71 98 Nasal Cannula 2.0 07/31/18 00:00 2.0 07/31/18 00:00 62 07/30/18 21:00 Nasal Cannula 2.0 07/30/18 20:00 60 07/30/18 20:00 98.3 57 18 143/71 98 Nasal Cannula 2.0 07/30/18 19:00 99 Nasal Cannula 2.0 28 07/30/18 16:00 54 07/30/18 16:00 2.0 07/30/18 16:00 98.1 63 20 130/85 100 Nasal Cannula 2.0 07/30/18 14:00 Nasal Cannula 2.0 07/30/18 12:00 98.4 59 20 140/70 100 Nasal Cannula 2.0 07/30/18 12:00 2.0 07/30/18 12:00 58 Height (Feet): 6 Weight (Pounds): 170 Objective GEN: NAD, Satting well on 2L HEENT: DMM, PERRL LUNGS: CTAB, No W/C CARDS: RRR, S1, S2, ABD: Soft, ND SKIN: Warm/dry, No rashes Laboratory Tests Test 07/30/18 13:25 07/30/18 13:50 07/30/18 14:00 07/30/18 20:50 Activated Partial Thromboplast Time 36 SEC (23-33) H 95 SEC (23-33) H Valproic Acid (Depakene) Level 108 MCG/ML (50-100) H White Blood Count 5.5 K/UL (4.8-10.8) Red Blood Count 3.66 M/UL (4.70-6.10) L Hemoglobin 10.8 G/DL (14.2-18.0) L Hematocrit 32.2 % (42.0-52.0) L Mean Corpuscular Volume 88 FL (80-99) Mean Corpuscular Hemoglobin 29.5 PG (27.0-31.0) Mean Corpuscular Hemoglobin Concent 33.5 G/DL (32.0-36.0) Red Cell Distribution Width 13.7 % (11.6-14.8) Platelet Count 142 K/UL (150-450) L Mean Platelet Volume 3.7 FL (6.5-10.1) L Neutrophils (%) (Auto) 69.5 % (45.0-75.0) Lymphocytes (%) (Auto) 16.3 % (20.0-45.0) L Monocytes (%) (Auto) 11.6 % (1.0-10.0) H Eosinophils (%) (Auto) 2.3 % (0.0-3.0) Basophils (%) (Auto) 0.4 % (0.0-2.0) Test 07/31/18 04:10 White Blood Count 5.6 K/UL (4.8-10.8) Red Blood Count 3.68 M/UL (4.70-6.10) L Hemoglobin 10.8 G/DL (14.2-18.0) L Hematocrit 32.3 % (42.0-52.0) L Mean Corpuscular Volume 88 FL (80-99) Mean Corpuscular Hemoglobin 29.3 PG (27.0-31.0) Mean Corpuscular Hemoglobin Concent 33.3 G/DL (32.0-36.0) Red Cell Distribution Width 14.1 % (11.6-14.8) Platelet Count 154 K/UL (150-450) Mean Platelet Volume 4.8 FL (6.5-10.1) L Neutrophils (%) (Auto) 62.0 % (45.0-75.0) Lymphocytes (%) (Auto) 17.6 % (20.0-45.0) L Monocytes (%) (Auto) 16.6 % (1.0-10.0) H Eosinophils (%) (Auto) 2.3 % (0.0-3.0) Basophils (%) (Auto) 1.5 % (0.0-2.0) Activated Partial Thromboplast Time 135 SEC (23-33) H Sodium Level 140 MMOL/L (136-145) Potassium Level 3.7 MMOL/L (3.5-5.1) Chloride Level 107 MMOL/L (98-107) Carbon Dioxide Level 23 MMOL/L (21-32) Anion Gap 10 mmol/L (5-15) Blood Urea Nitrogen 8 mg/dL (7-18) Creatinine 0.8 MG/DL (0.55-1.30) Estimat Glomerular Filtration Rate mL/min (>60) Glucose Level 80 MG/DL (74-106) Calcium Level 7.9 MG/DL (8.5-10.1) L Magnesium Level 1.4 MG/DL (1.8-2.4) L Current Medications Medications (Trade) Dose Ordered Sig/Jesi Route PRN Reason Start Time Stop Time Status Last Admin Dose Admin Acetaminophen (Tylenol) 650 mg Q6H PRN NG FOR TEMP > 100 OR PAIN 1-6 07/26/18 04:30 08/19/18 04:29 Albuterol/ Ipratropium (Albuterol/ Ipratropium) 3 ml Q4HRT PRN HHN sob 07/29/18 10:30 08/03/18 10:29 Chlorhexidine Gluconate (Candie-Hex 2%) 1 applic DAILY@2000 TOPIC 07/26/18 20:00 08/15/18 19:59 07/30/18 21:41 Dextrose (Dextrose 50%) 25 ml Q30M PRN IV Hypoglycemia 07/26/18 04:15 08/12/18 01:14 Dextrose (Dextrose 50%) 50 ml Q30M PRN IV Hypoglycemia 07/26/18 04:15 08/12/18 01:14 Famotidine (Pepcid I.v.) 20 mg Q12HR IVP 07/26/18 09:00 08/12/18 08:59 07/31/18 08:06 Heparin Sodium/ Dextrose 500 ml @ 22.725 mls/ hr ADJUST PER PROTOCOL IV 07/31/18 08:00 08/30/18 07:59 07/31/18 07:22 Insulin Aspart (NovoLOG) EVERY 6 HOURS SUBQ 07/26/18 06:00 08/12/18 12:29 07/31/18 06:01 Levetiracetam 100 ml @ 400 mls/hr Q12H IVPB 07/26/18 09:15 08/13/18 21:14 07/31/18 08:31 Levetiracetam 100 ml @ 400 mls/hr Q12HR IVPB 07/26/18 09:00 08/13/18 20:59 07/31/18 08:07 Magnesium Sulfate 100 ml @ 100 mls/hr Q1H IVPB 07/31/18 08:45 07/31/18 12:44 07/31/18 09:00 Spironolactone (Aldactone) 25 mg EVERY 12 HOURS ORAL 07/27/18 21:00 08/26/18 20:59 07/31/18 08:06 Valproate Sodium 1500 mg/Dextrose 100 ml @ 50 mls/hr Q12HR IV 07/29/18 09:00 08/28/18 08:59 07/30/18 21:39 Matteo Hunt MD Jul 31, 2018 09:19
[2018-07-31] MEDS: VALPROATE SODIUM IV SCH ×2 (09:30→20:59)
[2018-07-31] MEDS: D5W IV SCH ×2 (09:30→20:59)
--- NOTE | 2018-07-31 10:14 | GI Progress Note ---
Assessment/Plan Problems: (1) Severe malnutrition ICD Codes: E43 - Unspecified severe protein-calorie malnutrition SNOMED: 33671780 (2) Encounter for PEG (percutaneous endoscopic gastrostomy) ICD Codes: Z43.1 - Encounter for attention to gastrostomy SNOMED: 442195272, 169361337 (3) Dehydration ICD Codes: E86.0 - Dehydration SNOMED: 40947985 (4) Drug abuse ICD Codes: F19.10 - Drug abuse SNOMED: 45413724 (5) Iron deficiency anemia ICD Codes: D50.9 - Iron deficiency anemia SNOMED: 21938065 (6) Anemia ICD Codes: D64.9 - Anemia, unspecified SNOMED: 123067303 Status: stable, unchanged Status Narrative Discussed with Dr. Rubin. Assessment/Plan Patient refused PEG Diet advanced, patient tolerating okay for DC per GI standpoint The patient was seen and examined at bedside and all new and available data was reviewed in the patients chart. I agree with the above findings, impression and plan. (Patient seen earlier today. Signature stamp does not reflect patient encounter time.). - Mu Rubin MD Subjective Gastrointestinal/Abdominal: Reports: no symptoms Objective Last 24 Hour Vital Signs Date Time Temp Pulse Resp B/P (MAP) Pulse Ox O2 Delivery O2 Flow Rate FiO2 07/31/18 08:43 98 Nasal Cannula 2.0 28 07/31/18 08:00 97.3 54 19 125/68 99 Nasal Cannula 2.0 07/31/18 04:00 69 07/31/18 04:00 2.0 07/31/18 04:00 98.4 66 18 158/70 98 Nasal Cannula 2.0 07/31/18 02:04 63 134/65 07/31/18 00:00 98.1 62 18 166/71 98 Nasal Cannula 2.0 07/31/18 00:00 2.0 07/31/18 00:00 62 07/30/18 21:00 Nasal Cannula 2.0 07/30/18 20:00 60 07/30/18 20:00 98.3 57 18 143/71 98 Nasal Cannula 2.0 07/30/18 19:00 99 Nasal Cannula 2.0 28 07/30/18 16:00 54 07/30/18 16:00 2.0 07/30/18 16:00 98.1 63 20 130/85 100 Nasal Cannula 2.0 07/30/18 14:00 Nasal Cannula 2.0 07/30/18 12:00 98.4 59 20 140/70 100 Nasal Cannula 2.0 07/30/18 12:00 2.0 07/30/18 12:00 58 Intake and Output 07/30/18 07/31/18 18:59 06:59 Intake Total 340 ml Output Total 600 ml Balance -260 ml Intake Oral 340 ml Output Urine Total 600 ml # Voids 2 2 # Bowel Movements 2 1 Laboratory Tests Test 07/30/18 13:25 07/30/18 13:50 07/30/18 14:00 07/30/18 20:50 Activated Partial Thromboplast Time 36 SEC (23-33) H 95 SEC (23-33) H Valproic Acid (Depakene) Level 108 MCG/ML (50-100) H White Blood Count 5.5 K/UL (4.8-10.8) Red Blood Count 3.66 M/UL (4.70-6.10) L Hemoglobin 10.8 G/DL (14.2-18.0) L Hematocrit 32.2 % (42.0-52.0) L Mean Corpuscular Volume 88 FL (80-99) Mean Corpuscular Hemoglobin 29.5 PG (27.0-31.0) Mean Corpuscular Hemoglobin Concent 33.5 G/DL (32.0-36.0) Red Cell Distribution Width 13.7 % (11.6-14.8) Platelet Count 142 K/UL (150-450) L Mean Platelet Volume 3.7 FL (6.5-10.1) L Neutrophils (%) (Auto) 69.5 % (45.0-75.0) Lymphocytes (%) (Auto) 16.3 % (20.0-45.0) L Monocytes (%) (Auto) 11.6 % (1.0-10.0) H Eosinophils (%) (Auto) 2.3 % (0.0-3.0) Basophils (%) (Auto) 0.4 % (0.0-2.0) Test 07/31/18 04:10 White Blood Count 5.6 K/UL (4.8-10.8) Red Blood Count 3.68 M/UL (4.70-6.10) L Hemoglobin 10.8 G/DL (14.2-18.0) L Hematocrit 32.3 % (42.0-52.0) L Mean Corpuscular Volume 88 FL (80-99) Mean Corpuscular Hemoglobin 29.3 PG (27.0-31.0) Mean Corpuscular Hemoglobin Concent 33.3 G/DL (32.0-36.0) Red Cell Distribution Width 14.1 % (11.6-14.8) Platelet Count 154 K/UL (150-450) Mean Platelet Volume 4.8 FL (6.5-10.1) L Neutrophils (%) (Auto) 62.0 % (45.0-75.0) Lymphocytes (%) (Auto) 17.6 % (20.0-45.0) L Monocytes (%) (Auto) 16.6 % (1.0-10.0) H Eosinophils (%) (Auto) 2.3 % (0.0-3.0) Basophils (%) (Auto) 1.5 % (0.0-2.0) Activated Partial Thromboplast Time 135 SEC (23-33) H Sodium Level 140 MMOL/L (136-145) Potassium Level 3.7 MMOL/L (3.5-5.1) Chloride Level 107 MMOL/L (98-107) Carbon Dioxide Level 23 MMOL/L (21-32) Anion Gap 10 mmol/L (5-15) Blood Urea Nitrogen 8 mg/dL (7-18) Creatinine 0.8 MG/DL (0.55-1.30) Estimat Glomerular Filtration Rate mL/min (>60) Glucose Level 80 MG/DL (74-106) Calcium Level 7.9 MG/DL (8.5-10.1) L Magnesium Level 1.4 MG/DL (1.8-2.4) L Height (Feet): 6 Weight (Pounds): 170 General Appearance: no apparent distress Cardiovascular: normal rate Abdominal Exam: soft Objective Patient pulled Gerald Garsia NP Jul 31, 2018 10:14
--- NOTE | 2018-07-31 12:08 | NUR ---
DISCHARGE PLANNING: NOTE CLINICALS FAXED TO [facility] FOR REVIEW Addendum: 07/31/18 at 1322 by Clarisse Renee CM [facility]. MESSAGE FOR DC CLEMENTE LEFT AWAITING DC ORDER.
[2018-07-31 13:22] LABS: INR 1.2 (0.9-1.1)
--- NOTE | 2018-07-31 14:13 | Pulmonology Progress Note ---
Assessment/Plan Problems: (1) At high risk for aspiration (2) DVT (deep venous thrombosis) (3) COPD (chronic obstructive pulmonary disease) (4) Lumbar spondylosis (5) posttraumatic seizure disorder (6) Diabetes mellitus (7) Anemia (8) Chronic low back pain (9) Seizure disorder Assessment/Plan pt eating by himself on Nasal Canula now respiratory treatment check electrolytes swallow study sliding scale diabetic diet symptomatic treatment dvt prophylaxis. Subjective ROS Limited/Unobtainable: No Constitutional: Reports: no symptoms HEENT: Repors: no symptoms Allergies: Coded Allergies: HALOPERIDOL (Verified Allergy, Mild, [place] really bad, 07/05/16) Makes him irritable. THIORIDAZINE (Verified Allergy, Mild, [place] really bad, 07/05/16) Makes him violent TRAZODONE (Verified Allergy, Mild, [place] really bad, 07/05/16) Too strong; inability to move. Uncoded Allergies: PSYCHOTROPIC MEDICATION (Allergy, Mild, 08/13/14) Objective Last 24 Hour Vital Signs Date Time Temp Pulse Resp B/P (MAP) Pulse Ox O2 Delivery O2 Flow Rate FiO2 07/31/18 12:00 97.5 59 20 117/41 99 Nasal Cannula 2.0 07/31/18 12:00 2.0 07/31/18 12:00 54 07/31/18 09:00 Nasal Cannula 2.0 07/31/18 08:43 98 Nasal Cannula 2.0 28 07/31/18 08:00 58 07/31/18 08:00 2.0 07/31/18 08:00 97.3 54 19 125/68 99 Nasal Cannula 2.0 07/31/18 04:00 69 07/31/18 04:00 2.0 07/31/18 04:00 98.4 66 18 158/70 98 Nasal Cannula 2.0 07/31/18 02:04 63 134/65 07/31/18 00:00 98.1 62 18 166/71 98 Nasal Cannula 2.0 07/31/18 00:00 2.0 07/31/18 00:00 62 07/30/18 21:00 Nasal Cannula 2.0 07/30/18 20:00 60 07/30/18 20:00 98.3 57 18 143/71 98 Nasal Cannula 2.0 07/30/18 19:00 99 Nasal Cannula 2.0 28 07/30/18 16:00 54 07/30/18 16:00 2.0 07/30/18 16:00 98.1 63 20 130/85 100 Nasal Cannula 2.0 Intake and Output 07/30/18 07/31/18 19:00 07:00 Intake Total 340 ml 120 ml Output Total 600 ml Balance -260 ml 120 ml Intake Oral 340 ml 120 ml Output Urine Total 600 ml # Voids 2 2 # Bowel Movements 2 1 General Appearance: WD/WN HEENT: normocephalic, atraumatic Respiratory/Chest: chest wall non-tender, lungs clear Cardiovascular: normal peripheral pulses, normal rate Abdomen: normal bowel sounds, soft, non tender Genitourinary: normal external genitalia Extremities: no cyanosis Skin: no rash, no lesions Laboratory Tests 07/30/18 20:50: Activated Partial Thromboplast Time 95H 07/31/18 04:10: Activated Partial Thromboplast Time 135H, White Blood Count 5.6, Red Blood Count 3.68L, Hemoglobin 10.8L, Hematocrit 32.3L, Mean Corpuscular Volume 88, Mean Corpuscular Hemoglobin 29.3, Mean Corpuscular Hemoglobin Concent 33.3, Red Cell Distribution Width 14.1, Platelet Count 154, Mean Platelet Volume 4.8L, Neutrophils (%) (Auto) 62.0, Lymphocytes (%) (Auto) 17.6L, Monocytes (%) (Auto) 16.6H, Eosinophils (%) (Auto) 2.3, Basophils (%) (Auto) 1.5, Sodium Level 140, Potassium Level 3.7, Chloride Level 107, Carbon Dioxide Level 23, Anion Gap 10, Blood Urea Nitrogen 8, Creatinine 0.8, Estimat Glomerular Filtration Rate , Glucose Level 80, Calcium Level 7.9L, Magnesium Level 1.4L 07/31/18 12:50: Activated Partial Thromboplast Time 110H, Prothrombin Time 12.6H, Prothromb Time International Ratio 1.2H Current Medications Medications (Trade) Dose Ordered Sig/Jesi Route PRN Reason Start Time Stop Time Status Last Admin Dose Admin Acetaminophen (Tylenol) 650 mg Q6H PRN NG FOR TEMP > 100 OR PAIN 1-6 07/26/18 04:30 08/19/18 04:29 Albuterol/ Ipratropium (Albuterol/ Ipratropium) 3 ml Q4HRT PRN HHN sob 07/29/18 10:30 08/03/18 10:29 Chlorhexidine Gluconate (Candie-Hex 2%) 1 applic DAILY@2000 TOPIC 07/26/18 20:00 08/15/18 19:59 07/30/18 21:41 Dextrose (Dextrose 50%) 25 ml Q30M PRN IV Hypoglycemia 07/26/18 04:15 08/12/18 01:14 Dextrose (Dextrose 50%) 50 ml Q30M PRN IV Hypoglycemia 07/26/18 04:15 08/12/18 01:14 Famotidine (Pepcid I.v.) 20 mg Q12HR IVP 07/26/18 09:00 08/12/18 08:59 07/31/18 08:06 Heparin Sodium/ Dextrose 500 ml @ 18.18 mls/ hr ADJUST PER PROTOCOL IV 07/31/18 14:25 08/30/18 14:24 Insulin Aspart (NovoLOG) BEFORE MEALS AND HS SUBQ 07/31/18 11:30 08/12/18 12:29 Levetiracetam 100 ml @ 400 mls/hr Q12H IVPB 07/26/18 09:15 08/13/18 21:14 07/31/18 08:31 Levetiracetam 100 ml @ 400 mls/hr Q12HR IVPB 07/26/18 09:00 08/13/18 20:59 07/31/18 08:07 Spironolactone (Aldactone) 25 mg EVERY 12 HOURS ORAL 07/27/18 21:00 08/26/18 20:59 07/31/18 08:06 Valproate Sodium 1500 mg/Dextrose 100 ml @ 50 mls/hr Q12HR IV 07/29/18 09:00 08/28/18 08:59 07/31/18 09:30 Warfarin Sodium (Coumadin per pharmacy) 1 ea DAILY PRN MISC Per rx protocol 07/31/18 14:00 08/30/18 13:59 Warfarin Sodium (Coumadin) 5 mg COUMADIN ONCE ORAL 07/31/18 17:00 07/31/18 17:01 Maria E Shine MD Jul 31, 2018 14:13
--- NOTE | 2018-07-31 16:35 | NUR ---
DISCHARGE DISPOSITION: PLEASE READ PATIENT TO BE DISCHARGED TO [facility] [address] [facility] [address] T: [phone]>> CALL FOR REPORT [facility] ETA 1830 BLS SKILLED NO FAMILY TO NOTIFY TRANSFER REPORT TO BE PROVIDED
[2018-07-31] MEDS ORDERED: Warfarin Sodium 5mg ORAL ONE (17:00)
--- NOTE | 2018-07-31 17:07 | Internal Med Progress Note ---
Subjective Date of Service: Jul 31, 2018 Physician Name AliaMichael Attending Physician Will Mejía MD Current Medications Medications (Trade) Dose Ordered Sig/Jesi Route PRN Reason Start Time Stop Time Status Last Admin Dose Admin Acetaminophen (Tylenol) 650 mg Q6H PRN NG FOR TEMP > 100 OR PAIN 1-6 07/26/18 04:30 08/19/18 04:29 Albuterol/ Ipratropium (Albuterol/ Ipratropium) 3 ml Q4HRT PRN HHN sob 07/29/18 10:30 08/03/18 10:29 Chlorhexidine Gluconate (Candie-Hex 2%) 1 applic DAILY@2000 TOPIC 07/26/18 20:00 08/15/18 19:59 07/30/18 21:41 Dextrose (Dextrose 50%) 25 ml Q30M PRN IV Hypoglycemia 07/26/18 04:15 08/12/18 01:14 Dextrose (Dextrose 50%) 50 ml Q30M PRN IV Hypoglycemia 07/26/18 04:15 08/12/18 01:14 Famotidine (Pepcid I.v.) 20 mg Q12HR IVP 07/26/18 09:00 08/12/18 08:59 07/31/18 08:06 Heparin Sodium/ Dextrose 500 ml @ 18.18 mls/ hr ADJUST PER PROTOCOL IV 07/31/18 14:25 08/30/18 14:24 07/31/18 14:34 Insulin Aspart (NovoLOG) BEFORE MEALS AND HS SUBQ 07/31/18 11:30 08/12/18 12:29 Levetiracetam 100 ml @ 400 mls/hr Q12H IVPB 07/26/18 09:15 08/13/18 21:14 07/31/18 08:31 Levetiracetam 100 ml @ 400 mls/hr Q12HR IVPB 07/26/18 09:00 08/13/18 20:59 07/31/18 08:07 Spironolactone (Aldactone) 25 mg EVERY 12 HOURS ORAL 07/27/18 21:00 08/26/18 20:59 07/31/18 08:06 Valproate Sodium 1500 mg/Dextrose 100 ml @ 50 mls/hr Q12HR IV 07/29/18 09:00 08/28/18 08:59 07/31/18 09:30 Warfarin Sodium (Coumadin per pharmacy) 1 ea DAILY PRN MISC Per rx protocol 07/31/18 14:00 08/30/18 13:59 Allergies: Coded Allergies: HALOPERIDOL (Verified Allergy, Mild, [place] really bad, 07/05/16) Makes him irritable. THIORIDAZINE (Verified Allergy, Mild, [place] really bad, 07/05/16) Makes him violent TRAZODONE (Verified Allergy, Mild, [place] really bad, 07/05/16) Too strong; inability to move. Uncoded Allergies: PSYCHOTROPIC MEDICATION (Allergy, Mild, 08/13/14) ROS Limited/Unobtainable: No Constitutional: Reports: no symptoms HEENT: Reports: no symptoms Cardiovascular: Reports: no symptoms Respiratory: Reports: no symptoms Gastrointestinal/Abdominal: Reports: no symptoms Genitourinary: Reports: no symptoms Neurologic/Psychiatric: Reports: no symptoms Subjective 72 YO M admitted with breakthrough seizure. Now respiratory failure. Extubated 07/19/18; nasal canula. Cover for Int Med-Dr Mejía. Patient Refused PEG Objective Last Vital Signs Date Time Temp Pulse Resp B/P (MAP) Pulse Ox O2 Delivery O2 Flow Rate FiO2 07/31/18 16:00 2.0 07/31/18 12:00 97.5 59 20 117/41 99 Nasal Cannula 07/31/18 08:43 28 Laboratory Tests Test 07/30/18 20:50 07/31/18 04:10 07/31/18 12:50 Activated Partial Thromboplast Time 95 SEC (23-33) H 135 SEC (23-33) H 110 SEC (23-33) H White Blood Count 5.6 K/UL (4.8-10.8) Red Blood Count 3.68 M/UL (4.70-6.10) L Hemoglobin 10.8 G/DL (14.2-18.0) L Hematocrit 32.3 % (42.0-52.0) L Mean Corpuscular Volume 88 FL (80-99) Mean Corpuscular Hemoglobin 29.3 PG (27.0-31.0) Mean Corpuscular Hemoglobin Concent 33.3 G/DL (32.0-36.0) Red Cell Distribution Width 14.1 % (11.6-14.8) Platelet Count 154 K/UL (150-450) Mean Platelet Volume 4.8 FL (6.5-10.1) L Neutrophils (%) (Auto) 62.0 % (45.0-75.0) Lymphocytes (%) (Auto) 17.6 % (20.0-45.0) L Monocytes (%) (Auto) 16.6 % (1.0-10.0) H Eosinophils (%) (Auto) 2.3 % (0.0-3.0) Basophils (%) (Auto) 1.5 % (0.0-2.0) Sodium Level 140 MMOL/L (136-145) Potassium Level 3.7 MMOL/L (3.5-5.1) Chloride Level 107 MMOL/L (98-107) Carbon Dioxide Level 23 MMOL/L (21-32) Anion Gap 10 mmol/L (5-15) Blood Urea Nitrogen 8 mg/dL (7-18) Creatinine 0.8 MG/DL (0.55-1.30) Estimat Glomerular Filtration Rate mL/min (>60) Glucose Level 80 MG/DL (74-106) Calcium Level 7.9 MG/DL (8.5-10.1) L Magnesium Level 1.4 MG/DL (1.8-2.4) L Prothrombin Time 12.6 SEC (9.30-11.50) H Prothromb Time International Ratio 1.2 (0.9-1.1) H Intake and Output 07/30/18 07/31/18 19:00 07:00 Intake Total 340 ml 120 ml Output Total 600 ml Balance -260 ml 120 ml Intake Oral 340 ml 120 ml Output Urine Total 600 ml # Voids 2 2 # Bowel Movements 2 1 Objective PHYSICAL EXAMINATION: GENERAL: The patient is a thin-appearing male, in no apparent distress. HEENT: Eyes, pupils are equal and responsive to light and accommodation. Extraocular movements are intact. NECK: Supple. No lymphadenopathy. CHEST: Nasal canula; Few expiratory wheezes bilaterally. Otherwise, without crackles or rales. CARDIOVASCULAR: Tachycardic, regular rate. S1 and S2 are normal without murmurs, rubs, or gallops. ABDOMEN: Soft, nontender, and nondistended. Positive bowel sounds. No evidence of hepatosplenomegaly. Currently, no rebound or guarding noted. EXTREMITIES: Negative for clubbing, cyanosis, or edema. RECTAL/GENITAL: Not performed. NEUROLOGICALLY: Unable to assess secondary to the patient's mental status. Assessment/Plan Assessment/Plan ASSESSMENT: This is a 72-year-old male. 1. Intractable seizures. 2. Respiratory failure. 3. Probable pneumonia of the right upper lobe. 4. History of seizure disorder. 5. Chronic obstructive pulmonary disease. 6. Diabetes type 2. 7. Hypertension. 8. Metabolic encephalopathy. 9. Chronic obstructive pulmonary disease. 10. Chronic renal failure. 11. Traumatic brain injury. 12. Gastroesophageal reflux disease. 13. Coronary artery disease. 14. Anemia. 15. History of gastrointestinal hemorrhage. 16. Hypercholesteremia. 17. Cerebrovascular disease, status post cerebrovascular accident. 18. Dysphagia. 19. Prostate cancer with mets 20. UTI=staph haemolyticus 21. Protein calorie Malnutrition TREATMENT: 1. Intractable seizure. A Neurology consultation has been obtained. The patient has been started on Ativan intravenously. We will follow recommendations of Neurology. Continue Keppra, Dilantin, and Depakote as above. 2. Respiratory failure. Pulmonary consultation has been obtained with Dr. Maria E Shine. The patient is S/P extubation 07/19/18 now on nasal canula We will follow recommendations of Pulmonary. 3. Chronic obstructive pulmonary disease. As above, a Pulmonary consultation has been obtained with Dr. Maria E Shine. 4. Diabetes type 2. The patient has been placed on a NovoLog sliding scale. 5. Hypertension. The patient is currently hypotensive. 6. Metabolic encephalopathy. 7. Renal failure. 8. Traumatic brain injury. 9. Gastroesophageal reflux disease. 10. Coronary artery disease. 11. Anemia. 12. Gastrointestinal hemorrhage. 13. Hypercholesterolemia. 14. Cerebrovascular disease. 15. Dysphagia, status post PEG placement 16. Abx=cefazolin 17. ID consult=Dr Hunt 18. Patient refused PEG-see psych note concerning competence. 19. Await MRI brain 20. Discharge to [facility] when MRI completed Michael Rojo MD Jul 31, 2018 17:07
[2018-07-31] MEDS ORDERED: LORazepam Inj 2mg/ml 1ml IV SCH (17:45)
--- NOTE | 2018-07-31 17:48 | NUR ---
NURSE NOTES: Pt supposed to be discharged to [facility]. Per MANDI Pompa, patient should wait until results of MRI. Dr. Rojo said to hold discharge until tomorrow awaiting results of MRI. Called radiology about MRI. Radiology said pt is not a good candidate for MRI due to not following commands and anxiety. Told MANDI Pompa who ordered 0.5 mg ativan for the patient to have MRI. Order noted and carried out.
--- NOTE | 2018-07-31 18:25 | NUR ---
NURSE NOTES: Pt down for MRI
--- NOTE | 2018-07-31 19:15 | NUR ---
HAND-OFF: Report given to RONI Moreno. Pt is in stable condition; plan of care endorsed.
--- NOTE | 2018-07-31 19:17 | NUR ---
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 Patient's comfortable, no SOB, no sign of distress. Patient denies pain.
--- NOTE | 2018-07-31 19:57 | NUR ---
NURSE NOTES: Received report from RONI Kumar. Pt awake, alert, and talkative. Still sounds congested when talking. Bed in lowest position. Call light within reach. Will continue to monitor.
[2018-07-31] MEDS: Dyna-Hex 2% Top Sol 2oz TOPIC SCH (21:00)
[2018-07-31] MEDS ORDERED: Heparin 5000 units/ml inj IV SCH (21:15)
[2018-08-01] VITALS: BP 119/65
--- NOTE | 2018-08-01 00:30 | Progress Note ---
DATE: 07/31/2018 SUBJECTIVE: The patient is more talkative and following day impairment. MENTAL STATUS EXAMINATION: He is alert and oriented to self. Mood is dysphoric. Affect is constricted, congruent with mood. Thought process is concrete. Thought content, no suicidal or homicidal ideations. Memory is impaired. ASSESSMENT: 1. Cognitive impairment. 2. Encephalopathy, improving. PLAN: We will continue current medications. Provide the patient with reality orientation and supportive therapy. Rayna Yu M.D. DR: KP JOB#: [id number] CC: GEOFF
--- NOTE | 2018-08-01 01:58 | NUR ---
NURSE NOTES: cALLED AND LEFT A MESSAGE WITH dR. Church REGARDING PTS VALPROIC ACID LEVEL. Awaiting call back.
[2018-08-01 03:38] LABS: BASOPHILS % (AUTO) 0.4 % (0.0-2.0); EOSINOPHILS % (AUTO) 2.2 % (0.0-3.0); HEMATOCRIT 34.5 % (42.0-52.0); HEMOGLOBIN 11.8 G/DL (14.2-18.0); LYMPHOCYTES % (AUTO) 20.1 % (20.0-45.0); MEAN CORPUSCULAR VOLUME 87 FL (80-99); MONOCYTES % (AUTO) 9.2 % (1.0-10.0); NEUTROPHILS % (AUTO) 68.1 % (45.0-75.0); PLATELET COUNT 141 K/UL (150-450); RED BLOOD COUNT 3.95 M/UL (4.70-6.10); RED CELL DISTRIBUTION WIDTH 14.2 % (11.6-14.8); WHITE BLOOD COUNT 7.3 K/UL (4.8-10.8)
[2018-08-01 04:00] VITALS: BP 113/66
[2018-08-01 04:15] LABS: ANION GAP 10 mmol/L (5-15); BLOOD UREA NITROGEN 7 mg/dL (7-18); CALCIUM 8.4 MG/DL (8.5-10.1); CARBON DIOXIDE 26 MMOL/L (21-32); CHLORIDE 104 MMOL/L (98-107); CREATININE 0.8 MG/DL (0.55-1.30); POTASSIUM 3.4 MMOL/L (3.5-5.1); SODIUM 140 MMOL/L (136-145)
[2018-08-01 04:41] LABS: INR 1.3 (0.9-1.1)
[2018-08-01] MEDS ORDERED: Heparin 25,000u/D5W 500ml 500 ML IV SCH ×2 (06:00→08:00)
[2018-08-01] MEDS: NovoLOG Insulin Flexpen SUBQ SCH ×4 (06:09→21:00)
--- NOTE | 2018-08-01 07:26 | NUR ---
HAND-OFF: Report given to RONI Galvan. Pt stable.
--- NOTE | 2018-08-01 07:35 | NUR ---
NURSE NOTES: Pt received from RONI Moreno alert and oriented x3, no acute s/s of distress noted. On 2L NC, no acute s/s of resp distress noted. PICC Line asymptomatic and patent on KAMILLA, running to Heparin drip as ordered. Bed in lowest position, bed alarm on. Call light and belongings within reach.
[2018-08-01 08:00] VITALS: BP 116/77
[2018-08-01] MEDS ORDERED: Depakote 500mg tab ORAL SCH (09:00)
[2018-08-01] MEDS: Spironolactone 25mg tab ORAL SCH ×2 (09:00→22:16)
--- NOTE | 2018-08-01 09:36 | GI Progress Note ---
Assessment/Plan Problems: (1) Severe malnutrition ICD Codes: E43 - Unspecified severe protein-calorie malnutrition SNOMED: 21039273 (2) Encounter for PEG (percutaneous endoscopic gastrostomy) ICD Codes: Z43.1 - Encounter for attention to gastrostomy SNOMED: 911577541, 920368291 (3) Dehydration ICD Codes: E86.0 - Dehydration SNOMED: 01050937 (4) Drug abuse ICD Codes: F19.10 - Drug abuse SNOMED: 72309242 (5) Iron deficiency anemia ICD Codes: D50.9 - Iron deficiency anemia SNOMED: 66651096 (6) Anemia ICD Codes: D64.9 - Anemia, unspecified SNOMED: 344378640 Status: stable Status Narrative Discussed with Dr. Rubin Assessment/Plan Patient refused PEG, improving encephalopathy per psych Diet advanced, patient tolerating Strict aspiration precautions PT evaluation okay for DC per GI standpoint The patient was seen and examined at bedside and all new and available data was reviewed in the patients chart. I agree with the above findings, impression and plan. (Patient seen earlier today. Signature stamp does not reflect patient encounter time.). - Mu Rubin MD Subjective Gastrointestinal/Abdominal: Reports: no symptoms Objective Last 24 Hour Vital Signs Date Time Temp Pulse Resp B/P (MAP) Pulse Ox O2 Delivery O2 Flow Rate FiO2 08/01/18 08:33 97 Nasal Cannula 2.0 28 08/01/18 04:00 54 08/01/18 04:00 2.0 08/01/18 04:00 96.6 56 20 113/66 100 Nasal Cannula 2.0 08/01/18 00:00 56 08/01/18 00:00 97.7 52 20 119/65 96 Nasal Cannula 2.0 07/31/18 21:00 Nasal Cannula 2.0 07/31/18 20:18 97 Nasal Cannula 2.0 28 07/31/18 20:00 61 07/31/18 20:00 2.0 07/31/18 20:00 98.6 65 18 149/76 100 Nasal Cannula 2.0 07/31/18 16:00 62 07/31/18 16:00 2.0 07/31/18 16:00 97.5 64 20 150/73 100 Nasal Cannula 2.0 07/31/18 12:00 97.5 59 20 117/41 99 Nasal Cannula 2.0 07/31/18 12:00 2.0 07/31/18 12:00 54 Intake and Output 07/31/18 08/01/18 18:59 06:59 Intake Total 445 ml Output Total 500 ml Balance 445 ml -500 ml Intake Oral 360 ml IV Total 85 ml Output Urine Total 500 ml # Voids 3 # Bowel Movements 3 1 Laboratory Tests Test 07/31/18 12:50 07/31/18 20:35 07/31/18 23:00 08/01/18 03:30 Prothrombin Time 12.6 SEC (9.30-11.50) H 13.4 SEC (9.30-11.50) H Prothromb Time International Ratio 1.2 (0.9-1.1) H 1.3 (0.9-1.1) H Activated Partial Thromboplast Time 110 SEC (23-33) H 45 SEC (23-33) H 300 SEC (23-33) *H Valproic Acid (Depakene) Level 124 MCG/ML (50-100) *H White Blood Count 7.3 K/UL (4.8-10.8) Red Blood Count 3.95 M/UL (4.70-6.10) L Hemoglobin 11.8 G/DL (14.2-18.0) L Hematocrit 34.5 % (42.0-52.0) L Mean Corpuscular Volume 87 FL (80-99) Mean Corpuscular Hemoglobin 29.8 PG (27.0-31.0) Mean Corpuscular Hemoglobin Concent 34.1 G/DL (32.0-36.0) Red Cell Distribution Width 14.2 % (11.6-14.8) Platelet Count 141 K/UL (150-450) L Mean Platelet Volume 3.9 FL (6.5-10.1) L Neutrophils (%) (Auto) 68.1 % (45.0-75.0) Lymphocytes (%) (Auto) 20.1 % (20.0-45.0) Monocytes (%) (Auto) 9.2 % (1.0-10.0) Eosinophils (%) (Auto) 2.2 % (0.0-3.0) Basophils (%) (Auto) 0.4 % (0.0-2.0) Sodium Level 140 MMOL/L (136-145) Potassium Level 3.4 MMOL/L (3.5-5.1) L Chloride Level 104 MMOL/L (98-107) Carbon Dioxide Level 26 MMOL/L (21-32) Anion Gap 10 mmol/L (5-15) Blood Urea Nitrogen 7 mg/dL (7-18) Creatinine 0.8 MG/DL (0.55-1.30) Estimat Glomerular Filtration Rate mL/min (>60) Glucose Level 91 MG/DL (74-106) Calcium Level 8.4 MG/DL (8.5-10.1) L Magnesium Level 1.8 MG/DL (1.8-2.4) Height (Feet): 6 Weight (Pounds): 170 General Appearance: WD/WN, no apparent distress, alert Cardiovascular: normal rate Respiratory/Chest: normal breath sounds, no respiratory distress Abdominal Exam: normal bowel sounds, non tender, soft Extremities: normal range of motion, non-tender Objective Patient pulled Gerald Garsia NP Aug 01, 2018 09:36
[2018-08-01 12:00] VITALS: BP 118/68
--- NOTE | 2018-08-01 12:47 | Pulmonology Progress Note ---
Assessment/Plan Problems: (1) At high risk for aspiration (2) DVT (deep venous thrombosis) (3) COPD (chronic obstructive pulmonary disease) (4) Lumbar spondylosis (5) posttraumatic seizure disorder (6) Diabetes mellitus (7) Anemia (8) Chronic low back pain (9) Seizure disorder Assessment/Plan pt eating by himself on Nasal Canula now respiratory treatment check electrolytes swallow study sliding scale diabetic diet symptomatic treatment dvt prophylaxis. [facility] INR is between 2-3 Subjective ROS Limited/Unobtainable: No Constitutional: Reports: no symptoms HEENT: Repors: no symptoms Allergies: Coded Allergies: HALOPERIDOL (Verified Allergy, Mild, [place] really bad, 07/05/16) Makes him irritable. THIORIDAZINE (Verified Allergy, Mild, [place] really bad, 07/05/16) Makes him violent TRAZODONE (Verified Allergy, Mild, [place] really bad, 07/05/16) Too strong; inability to move. Uncoded Allergies: PSYCHOTROPIC MEDICATION (Allergy, Mild, 08/13/14) Objective Last 24 Hour Vital Signs Date Time Temp Pulse Resp B/P (MAP) Pulse Ox O2 Delivery O2 Flow Rate FiO2 08/01/18 09:00 Nasal Cannula 2.0 08/01/18 08:33 97 Nasal Cannula 2.0 28 08/01/18 08:00 2.0 08/01/18 08:00 98.2 66 20 116/77 98 Nasal Cannula 2.0 08/01/18 08:00 58 08/01/18 04:00 54 08/01/18 04:00 2.0 08/01/18 04:00 96.6 56 20 113/66 100 Nasal Cannula 2.0 08/01/18 00:00 56 08/01/18 00:00 97.7 52 20 119/65 96 Nasal Cannula 2.0 07/31/18 21:00 Nasal Cannula 2.0 07/31/18 20:18 97 Nasal Cannula 2.0 28 07/31/18 20:00 61 07/31/18 20:00 2.0 07/31/18 20:00 98.6 65 18 149/76 100 Nasal Cannula 2.0 07/31/18 16:00 62 07/31/18 16:00 2.0 07/31/18 16:00 97.5 64 20 150/73 100 Nasal Cannula 2.0 Intake and Output 07/31/18 08/01/18 18:59 06:59 Intake Total 445 ml Output Total 500 ml Balance 445 ml -500 ml Intake Oral 360 ml IV Total 85 ml Output Urine Total 500 ml # Voids 3 # Bowel Movements 3 1 General Appearance: cachetic HEENT: normocephalic, anicteric Respiratory/Chest: chest wall non-tender, lungs clear Cardiovascular: normal peripheral pulses, normal rate Abdomen: normal bowel sounds, soft, non tender Genitourinary: normal external genitalia Skin: no ulcers Laboratory Tests 07/31/18 12:50: Prothrombin Time 12.6H, Prothromb Time International Ratio 1.2H, Activated Partial Thromboplast Time 110H 07/31/18 20:35: Activated Partial Thromboplast Time 45H 07/31/18 23:00: Valproic Acid (Depakene) Level 124*H 08/01/18 03:30: Prothrombin Time 13.4H, Prothromb Time International Ratio 1.3H, Activated Partial Thromboplast Time 300*H, White Blood Count 7.3, Red Blood Count 3.95L, Hemoglobin 11.8L, Hematocrit 34.5L, Mean Corpuscular Volume 87, Mean Corpuscular Hemoglobin 29.8, Mean Corpuscular Hemoglobin Concent 34.1, Red Cell Distribution Width 14.2, Platelet Count 141L, Mean Platelet Volume 3.9L, Neutrophils (%) (Auto) 68.1, Lymphocytes (%) (Auto) 20.1, Monocytes (%) (Auto) 9.2, Eosinophils (%) (Auto) 2.2, Basophils (%) (Auto) 0.4, Sodium Level 140, Potassium Level 3.4L, Chloride Level 104, Carbon Dioxide Level 26, Anion Gap 10 , Blood Urea Nitrogen 7, Creatinine 0.8, Estimat Glomerular Filtration Rate , Glucose Level 91, Calcium Level 8.4L, Magnesium Level 1.8 Current Medications Medications (Trade) Dose Ordered Sig/Jesi Route PRN Reason Start Time Stop Time Status Last Admin Dose Admin Acetaminophen (Tylenol) 650 mg Q6H PRN NG FOR TEMP > 100 OR PAIN 1-6 07/26/18 04:30 08/19/18 04:29 Albuterol/ Ipratropium (Albuterol/ Ipratropium) 3 ml Q4HRT PRN HHN sob 07/29/18 10:30 08/03/18 10:29 Chlorhexidine Gluconate (Candie-Hex 2%) 1 applic DAILY@2000 TOPIC 07/26/18 20:00 08/15/18 19:59 07/31/18 21:00 Dextrose (Dextrose 50%) 25 ml Q30M PRN IV Hypoglycemia 07/26/18 04:15 08/12/18 01:14 Dextrose (Dextrose 50%) 50 ml Q30M PRN IV Hypoglycemia 07/26/18 04:15 08/12/18 01:14 Divalproex Sodium (Depakote) 1,000 mg EVERY 12 HOURS ORAL 08/01/18 21:00 08/31/18 08:59 Famotidine (Pepcid I.v.) 20 mg Q12HR IVP 07/26/18 09:00 08/12/18 08:59 08/01/18 09:00 Heparin Sodium/ Dextrose 500 ml @ 18.18 mls/ hr ADJUST PER PROTOCOL IV 08/01/18 08:00 08/31/18 05:59 08/01/18 08:59 Insulin Aspart (NovoLOG) BEFORE MEALS AND HS SUBQ 07/31/18 11:30 08/12/18 12:29 Levetiracetam (Keppra) 1,500 mg Q12HR ORAL 07/31/18 21:00 08/30/18 20:59 08/01/18 08:59 Spironolactone (Aldactone) 25 mg EVERY 12 HOURS ORAL 07/27/18 21:00 08/26/18 20:59 08/01/18 09:00 Warfarin Sodium (Coumadin per pharmacy) 1 ea DAILY PRN MISC Per rx protocol 07/31/18 14:00 08/30/18 13:59 Maria E Shine MD Aug 01, 2018 12:47
--- NOTE | 2018-08-01 12:55 | Internal Med Progress Note ---
Subjective Date of Service: Aug 01, 2018 Physician Name Michael Rojo Attending Physician Will Mejía MD Current Medications Medications (Trade) Dose Ordered Sig/Jesi Route PRN Reason Start Time Stop Time Status Last Admin Dose Admin Acetaminophen (Tylenol) 650 mg Q6H PRN NG FOR TEMP > 100 OR PAIN 1-6 07/26/18 04:30 08/19/18 04:29 Albuterol/ Ipratropium (Albuterol/ Ipratropium) 3 ml Q4HRT PRN HHN sob 07/29/18 10:30 08/03/18 10:29 Chlorhexidine Gluconate (Candie-Hex 2%) 1 applic DAILY@2000 TOPIC 07/26/18 20:00 08/15/18 19:59 07/31/18 21:00 Dextrose (Dextrose 50%) 25 ml Q30M PRN IV Hypoglycemia 07/26/18 04:15 08/12/18 01:14 Dextrose (Dextrose 50%) 50 ml Q30M PRN IV Hypoglycemia 07/26/18 04:15 08/12/18 01:14 Divalproex Sodium (Depakote) 1,000 mg EVERY 12 HOURS ORAL 08/01/18 21:00 08/31/18 08:59 Famotidine (Pepcid I.v.) 20 mg Q12HR IVP 07/26/18 09:00 08/12/18 08:59 08/01/18 09:00 Heparin Sodium/ Dextrose 500 ml @ 18.18 mls/ hr ADJUST PER PROTOCOL IV 08/01/18 08:00 08/31/18 05:59 08/01/18 08:59 Insulin Aspart (NovoLOG) BEFORE MEALS AND HS SUBQ 07/31/18 11:30 08/12/18 12:29 Levetiracetam (Keppra) 1,500 mg Q12HR ORAL 07/31/18 21:00 08/30/18 20:59 08/01/18 08:59 Spironolactone (Aldactone) 25 mg EVERY 12 HOURS ORAL 07/27/18 21:00 08/26/18 20:59 08/01/18 09:00 Warfarin Sodium (Coumadin per pharmacy) 1 ea DAILY PRN MISC Per rx protocol 07/31/18 14:00 08/30/18 13:59 Allergies: Coded Allergies: HALOPERIDOL (Verified Allergy, Mild, [place] really bad, 07/05/16) Makes him irritable. THIORIDAZINE (Verified Allergy, Mild, [place] really bad, 07/05/16) Makes him violent TRAZODONE (Verified Allergy, Mild, [place] really bad, 07/05/16) Too strong; inability to move. Uncoded Allergies: PSYCHOTROPIC MEDICATION (Allergy, Mild, 08/13/14) ROS Limited/Unobtainable: No Constitutional: Reports: no symptoms HEENT: Reports: no symptoms Cardiovascular: Reports: no symptoms Respiratory: Reports: no symptoms Gastrointestinal/Abdominal: Reports: no symptoms Genitourinary: Reports: no symptoms Neurologic/Psychiatric: Reports: no symptoms Subjective 72 YO M admitted with breakthrough seizure. Now respiratory failure. Extubated 07/19/18; nasal canula. Cover for [facility]-Dr Mejía. Patient Refused PEG. Await MRI brain result Objective Last Vital Signs Date Time Temp Pulse Resp B/P (MAP) Pulse Ox O2 Delivery O2 Flow Rate FiO2 08/01/18 09:00 Nasal Cannula 2.0 08/01/18 08:33 97 28 08/01/18 08:00 98.2 66 20 116/77 Laboratory Tests Test 07/31/18 20:35 07/31/18 23:00 08/01/18 03:30 Activated Partial Thromboplast Time 45 SEC (23-33) H 300 SEC (23-33) *H Valproic Acid (Depakene) Level 124 MCG/ML (50-100) *H White Blood Count 7.3 K/UL (4.8-10.8) Red Blood Count 3.95 M/UL (4.70-6.10) L Hemoglobin 11.8 G/DL (14.2-18.0) L Hematocrit 34.5 % (42.0-52.0) L Mean Corpuscular Volume 87 FL (80-99) Mean Corpuscular Hemoglobin 29.8 PG (27.0-31.0) Mean Corpuscular Hemoglobin Concent 34.1 G/DL (32.0-36.0) Red Cell Distribution Width 14.2 % (11.6-14.8) Platelet Count 141 K/UL (150-450) L Mean Platelet Volume 3.9 FL (6.5-10.1) L Neutrophils (%) (Auto) 68.1 % (45.0-75.0) Lymphocytes (%) (Auto) 20.1 % (20.0-45.0) Monocytes (%) (Auto) 9.2 % (1.0-10.0) Eosinophils (%) (Auto) 2.2 % (0.0-3.0) Basophils (%) (Auto) 0.4 % (0.0-2.0) Prothrombin Time 13.4 SEC (9.30-11.50) H Prothromb Time International Ratio 1.3 (0.9-1.1) H Sodium Level 140 MMOL/L (136-145) Potassium Level 3.4 MMOL/L (3.5-5.1) L Chloride Level 104 MMOL/L (98-107) Carbon Dioxide Level 26 MMOL/L (21-32) Anion Gap 10 mmol/L (5-15) Blood Urea Nitrogen 7 mg/dL (7-18) Creatinine 0.8 MG/DL (0.55-1.30) Estimat Glomerular Filtration Rate mL/min (>60) Glucose Level 91 MG/DL (74-106) Calcium Level 8.4 MG/DL (8.5-10.1) L Magnesium Level 1.8 MG/DL (1.8-2.4) Intake and Output 07/31/18 08/01/18 18:59 06:59 Intake Total 445 ml Output Total 500 ml Balance 445 ml -500 ml Intake Oral 360 ml IV Total 85 ml Output Urine Total 500 ml # Voids 3 # Bowel Movements 3 1 Objective PHYSICAL EXAMINATION: GENERAL: The patient is a thin-appearing male, in no apparent distress. HEENT: Eyes, pupils are equal and responsive to light and accommodation. Extraocular movements are intact. NECK: Supple. No lymphadenopathy. CHEST: Nasal canula; Few expiratory wheezes bilaterally. Otherwise, without crackles or rales. CARDIOVASCULAR: Tachycardic, regular rate. S1 and S2 are normal without murmurs, rubs, or gallops. ABDOMEN: Soft, nontender, and nondistended. Positive bowel sounds. No evidence of hepatosplenomegaly. Currently, no rebound or guarding noted. EXTREMITIES: Negative for clubbing, cyanosis, or edema. RECTAL/GENITAL: Not performed. NEUROLOGICALLY: Unable to assess secondary to the patient's mental status. Assessment/Plan Assessment/Plan ASSESSMENT: This is a 72-year-old male. 1. Intractable seizures. 2. Respiratory failure. 3. Probable pneumonia of the right upper lobe. 4. History of seizure disorder. 5. Chronic obstructive pulmonary disease. 6. Diabetes type 2. 7. Hypertension. 8. Metabolic encephalopathy. 9. Chronic obstructive pulmonary disease. 10. Chronic renal failure. 11. Traumatic brain injury. 12. Gastroesophageal reflux disease. 13. Coronary artery disease. 14. Anemia. 15. History of gastrointestinal hemorrhage. 16. Hypercholesteremia. 17. Cerebrovascular disease, status post cerebrovascular accident. 18. Dysphagia. 19. Prostate cancer with mets 20. UTI=staph haemolyticus 21. Protein calorie Malnutrition TREATMENT: 1. Intractable seizure. A Neurology consultation has been obtained. The patient has been started on Ativan intravenously. We will follow recommendations of Neurology. Continue Keppra, Dilantin, and Depakote as above. 2. Respiratory failure. Pulmonary consultation has been obtained with Dr. Maria E Shine. The patient is S/P extubation 07/19/18 now on nasal canula We will follow recommendations of Pulmonary. 3. Chronic obstructive pulmonary disease. As above, a Pulmonary consultation has been obtained with Dr. Maria E Shine. 4. Diabetes type 2. The patient has been placed on a NovoLog sliding scale. 5. Hypertension. The patient is currently hypotensive. 6. Metabolic encephalopathy. 7. Renal failure. 8. Traumatic brain injury. 9. Gastroesophageal reflux disease. 10. Coronary artery disease. 11. Anemia. 12. Gastrointestinal hemorrhage. 13. Hypercholesterolemia. 14. Cerebrovascular disease. 15. Dysphagia, status post PEG placement 16. Abx=cefazolin 17. ID consult=Dr Hunt 18. Patient refused PEG-see psych note concerning competence. 19. Await MRI brain result 20. Discharge to [facility] when MRI completed Michael Rojo MD Aug 01, 2018 12:54
--- NOTE | 2018-08-01 13:08 | Infectious Diseases Prog Note ---
Assessment/Plan Assessment/Plan 72 yo male with PMHx of TBI, Seizure disorder, COPD, Encephalopathy, DM, HTN, CVA, Renal failure, CAD and Dysphagia s/p Peg who was brought to the ED on with intractable seizures. Respiratory failure Most probably due to seizures Active PNA unlikely Sputum Cx 07/12/18 - NF Bacteriuria UTI unlikely UCx - Staph h. S/P 2 days Vancomycin DVT right leg On Heparin TBI Seizure disorder COPD Encephalopathy DM HTN CVA Renal failure CAD Dysphagia s/p Peg Extubated 07/19/18 PLAN - Continue to monitor off abx as he is stable - 07/29/18 S/P Cefazolin #7 - 07/15/18 S/P Vancomycin and Zosyn #2 - Supportive care - Monitor CBC and Temps Subjective Allergies: Coded Allergies: HALOPERIDOL (Verified Allergy, Mild, [place] really bad, 07/05/16) Makes him irritable. THIORIDAZINE (Verified Allergy, Mild, [place] really bad, 07/05/16) Makes him violent TRAZODONE (Verified Allergy, Mild, [place] really bad, 07/05/16) Too strong; inability to move. Uncoded Allergies: PSYCHOTROPIC MEDICATION (Allergy, Mild, 08/13/14) Subjective Afebrile No Leukocytosis Objective Vital Signs Last 24 Hour Vital Signs Date Time Temp Pulse Resp B/P (MAP) Pulse Ox O2 Delivery O2 Flow Rate FiO2 08/01/18 09:00 Nasal Cannula 2.0 08/01/18 08:33 97 Nasal Cannula 2.0 28 08/01/18 08:00 2.0 08/01/18 08:00 98.2 66 20 116/77 98 Nasal Cannula 2.0 08/01/18 08:00 58 08/01/18 04:00 54 08/01/18 04:00 2.0 08/01/18 04:00 96.6 56 20 113/66 100 Nasal Cannula 2.0 08/01/18 00:00 56 08/01/18 00:00 97.7 52 20 119/65 96 Nasal Cannula 2.0 07/31/18 21:00 Nasal Cannula 2.0 07/31/18 20:18 97 Nasal Cannula 2.0 28 07/31/18 20:00 61 07/31/18 20:00 2.0 07/31/18 20:00 98.6 65 18 149/76 100 Nasal Cannula 2.0 07/31/18 16:00 62 07/31/18 16:00 2.0 07/31/18 16:00 97.5 64 20 150/73 100 Nasal Cannula 2.0 Height (Feet): 6 Weight (Pounds): 170 Objective GEN: NAD HEENT: DMM, PERRL LUNGS: CTAB, No W/C CARDS: RRR, S1, S2, ABD: Soft, ND SKIN: Warm/dry, No rashes Laboratory Tests Test 07/31/18 20:35 07/31/18 23:00 08/01/18 03:30 Activated Partial Thromboplast Time 45 SEC (23-33) H 300 SEC (23-33) *H Valproic Acid (Depakene) Level 124 MCG/ML (50-100) *H White Blood Count 7.3 K/UL (4.8-10.8) Red Blood Count 3.95 M/UL (4.70-6.10) L Hemoglobin 11.8 G/DL (14.2-18.0) L Hematocrit 34.5 % (42.0-52.0) L Mean Corpuscular Volume 87 FL (80-99) Mean Corpuscular Hemoglobin 29.8 PG (27.0-31.0) Mean Corpuscular Hemoglobin Concent 34.1 G/DL (32.0-36.0) Red Cell Distribution Width 14.2 % (11.6-14.8) Platelet Count 141 K/UL (150-450) L Mean Platelet Volume 3.9 FL (6.5-10.1) L Neutrophils (%) (Auto) 68.1 % (45.0-75.0) Lymphocytes (%) (Auto) 20.1 % (20.0-45.0) Monocytes (%) (Auto) 9.2 % (1.0-10.0) Eosinophils (%) (Auto) 2.2 % (0.0-3.0) Basophils (%) (Auto) 0.4 % (0.0-2.0) Prothrombin Time 13.4 SEC (9.30-11.50) H Prothromb Time International Ratio 1.3 (0.9-1.1) H Sodium Level 140 MMOL/L (136-145) Potassium Level 3.4 MMOL/L (3.5-5.1) L Chloride Level 104 MMOL/L (98-107) Carbon Dioxide Level 26 MMOL/L (21-32) Anion Gap 10 mmol/L (5-15) Blood Urea Nitrogen 7 mg/dL (7-18) Creatinine 0.8 MG/DL (0.55-1.30) Estimat Glomerular Filtration Rate mL/min (>60) Glucose Level 91 MG/DL (74-106) Calcium Level 8.4 MG/DL (8.5-10.1) L Magnesium Level 1.8 MG/DL (1.8-2.4) Current Medications Medications (Trade) Dose Ordered Sig/Jesi Route PRN Reason Start Time Stop Time Status Last Admin Dose Admin Acetaminophen (Tylenol) 650 mg Q6H PRN NG FOR TEMP > 100 OR PAIN 1-07/26/18 04:30 08/19/18 04:29 Albuterol/ Ipratropium (Albuterol/ Ipratropium) 3 ml Q4HRT PRN HHN sob 07/29/18 10:30 08/03/18 10:29 Chlorhexidine Gluconate (Candie-Hex 2%) 1 applic DAILY@2000 TOPIC 07/26/18 20:00 08/15/18 19:59 07/31/18 21:00 Dextrose (Dextrose 50%) 25 ml Q30M PRN IV Hypoglycemia 07/26/18 04:15 08/12/18 01:14 Dextrose (Dextrose 50%) 50 ml Q30M PRN IV Hypoglycemia 07/26/18 04:15 08/12/18 01:14 Divalproex Sodium (Depakote) 1,000 mg EVERY 12 HOURS ORAL 08/01/18 21:00 08/31/18 08:59 Famotidine (Pepcid I.v.) 20 mg Q12HR IVP 07/26/18 09:00 08/12/18 08:59 08/01/18 09:00 Heparin Sodium/ Dextrose 500 ml @ 18.18 mls/ hr ADJUST PER PROTOCOL IV 08/01/18 08:00 08/31/18 05:59 08/01/18 08:59 Insulin Aspart (NovoLOG) BEFORE MEALS AND HS SUBQ 07/31/18 11:30 08/12/18 12:29 Levetiracetam (Keppra) 1,500 mg Q12HR ORAL 07/31/18 21:00 08/30/18 20:59 08/01/18 08:59 Spironolactone (Aldactone) 25 mg EVERY 12 HOURS ORAL 07/27/18 21:00 08/26/18 20:59 08/01/18 09:00 Warfarin Sodium (Coumadin per pharmacy) 1 ea DAILY PRN MISC Per rx protocol 07/31/18 14:00 08/30/18 13:59 Matteo Hunt MD Aug 01, 2018 13:08
--- NOTE | 2018-08-01 13:15 | NUR ---
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 RN spoke with [facility] pharmacist, who stated that Lovenox might be safer for pt d/t difficulty drawing labs for timed PTTs. RN endorsed to Dr. Shine about recent PTT and difficulty to obtain timed PTTs from pt. Per Dr. Shine, d/c Heparin drip and have pharmacy dose Lovenox to bridge with Warfarin PO for R femoral DVT. RN endorsed to [facility] pharmacist.
[2018-08-01] MEDS: Enoxaparin 80mg Inj SUBQ SCH ×2 (14:08→22:17)
--- NOTE | 2018-08-01 15:11 | Diagnostic Imaging Report ---
Indication: Altered mental status, confusion, seizures Technique: sagittal T1 fast spin echo, axial T1 FLAIR, axial T2 FLAIR, axial T2 FS PROPELLER, axial T2* GRE, axial diffusion weighted images. ADC and exponential ADC maps generated Comparison: 01/12/[address]; no comparison brain MRI studies Findings: There is extensive high T2 and low T1 signal abnormality involving the bilateral inferior frontal lobes symmetrically. This correlates with hypodensity is seen on prior CT scan. Abnormal white matter and cortical T2 signal is seen in the left temporal lobe. This correlates with hypodensity demonstrated on prior CT scan. There is less extensive deep white matter high hyperintensity in the right anterior temporal lobe, as well as some cortical high T2 signal and low T1 signal in the posterior right temporal lobe. No definite correlate is abnormality on prior CT demonstrated. Abnormal high or mostly white matter but also cortical T2 signal with some volume loss is seen in the posterior right parietal lobe. This correlates with encephalomalacia demonstrated in this area on prior CT scan. No evidence of acute hemorrhage. No diffusion restriction demonstrated. There is age-related volume loss which is progressive since prior exam. Old lacunar infarcts are seen in the basal ganglia bilaterally. Abnormal low signal is seen near the odontoid process of the C2 vertebral segment. The right mastoid air cells demonstrate considerable fluid. There is minimal maxillary sinus mucosal thickening. Impression: Extensive white matter and cortical signal abnormality, as described above. Given absence of associated diffusion abnormality and evidence of similar abnormalities on prior CT scan, findings are most likely on the basis of encephalomalacia, presumably due to ischemia or other prior insults. Progressed cortical and central volume loss Negative for acute intracranial bleed or mass effect This agrees with the preliminary interpretation provided overnight by [facility] teleradiology service. Abnormal signal within the C2 odontoid, may indicate pathological process. Consider cervical spine MRI for better characterization. This finding was not described on the preliminary report, was phoned to Dr. Shine at the time of interpretation
--- NOTE | 2018-08-01 15:58 | Neurology Progress Note ---
Interim History Interim History ROS Limited/Unobtainable: No Complaints: AMS Interim History This visit was performed on July 31, [address] Abad Iniguez. Review of Systems Neuro Review of Systems Stable MS, no seizures clinically observed, afebrile, ambulatory/ eating well. Objective Physical Exam Last Vital Signs Date Time Temp Pulse Resp B/P (MAP) Pulse Ox O2 Delivery O2 Flow Rate FiO2 08/01/18 12:00 2.0 08/01/18 12:00 58 08/01/18 12:00 98.3 20 118/68 98 Nasal Cannula 08/01/18 08:33 28 Laboratory Tests Test 07/31/18 20:35 07/31/18 23:00 08/01/18 03:30 Activated Partial Thromboplast Time 45 SEC (23-33) H 300 SEC (23-33) *H Valproic Acid (Depakene) Level 124 MCG/ML (50-100) *H White Blood Count 7.3 K/UL (4.8-10.8) Red Blood Count 3.95 M/UL (4.70-6.10) L Hemoglobin 11.8 G/DL (14.2-18.0) L Hematocrit 34.5 % (42.0-52.0) L Mean Corpuscular Volume 87 FL (80-99) Mean Corpuscular Hemoglobin 29.8 PG (27.0-31.0) Mean Corpuscular Hemoglobin Concent 34.1 G/DL (32.0-36.0) Red Cell Distribution Width 14.2 % (11.6-14.8) Platelet Count 141 K/UL (150-450) L Mean Platelet Volume 3.9 FL (6.5-10.1) L Neutrophils (%) (Auto) 68.1 % (45.0-75.0) Lymphocytes (%) (Auto) 20.1 % (20.0-45.0) Monocytes (%) (Auto) 9.2 % (1.0-10.0) Eosinophils (%) (Auto) 2.2 % (0.0-3.0) Basophils (%) (Auto) 0.4 % (0.0-2.0) Prothrombin Time 13.4 SEC (9.30-11.50) H Prothromb Time International Ratio 1.3 (0.9-1.1) H Sodium Level 140 MMOL/L (136-145) Potassium Level 3.4 MMOL/L (3.5-5.1) L Chloride Level 104 MMOL/L (98-107) Carbon Dioxide Level 26 MMOL/L (21-32) Anion Gap 10 mmol/L (5-15) Blood Urea Nitrogen 7 mg/dL (7-18) Creatinine 0.8 MG/DL (0.55-1.30) Estimat Glomerular Filtration Rate mL/min (>60) Glucose Level 91 MG/DL (74-106) Calcium Level 8.4 MG/DL (8.5-10.1) L Magnesium Level 1.8 MG/DL (1.8-2.4) General: well developed, well nourished Head: normocophalic Neck: no rigidity EENT: benign Neurologic Exam Mental Status: awake, alert, oriented x4, normal recent memory, normal remote memory, preserved visuospatial function Speech: normal speech, no dysarthia Language: other Cranial Nerve II: fundus normal, visual dodd, no papilledema Cranial Nerves III, IV, : PERRLA, EOMI Cranial Nerve V: normal facial sensations, temporales function normal, masseters function normal, pterygoids function normal, other Cranial Nerve VII: no facial asymmetry, normal facial expressions Cranial Nerve VIII: normal hearing, no nystagmus Cranial Nerve IX: normal palate elevation, gag response Cranial Nerve X: no voice hoarseness Cranial Nerve XI: SCM symmetric, trapezii function normal, other Cranial Nerve XII: tongue midline, no tongue atrophy/fasciculations, other Motor System: normal muscle tone, strength 5/5, no involuntary movement, no muscle wasting Sensory: normal pinprick, normal light touch, other Coordination: normal finger to nose bilaterally, normal heel to escalante bilaterally Deep Tendon Reflexes: 1+ bicep (L), 1+ bicep (R), 1+ tricep (L), 1+ tricep (R) , 1+ brachioradialis (L), 1+ brachioradialis (R), 1+ knee (L), 1+ knee (R), 1+ ankle (L), 1+ ankle (R) Reflexes: flexor plantar (L), flexor plantar (R); extensor plantar (L), extensor plantar (R) Stance: normal Gait: stable Impression/Recommendations Problems: (1) Acute metabolic encephalopathy (2) Acute encephalopathy (3) Drug abuse (4) COPD (chronic obstructive pulmonary disease) (5) Diabetes mellitus (6) Anemia (7) Acute respiratory failure (8) Seizure disorder (9) UTI (urinary tract infection) (10) Prostate cancer, primary, 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 site (11) Iron deficiency anemia (12) Acute renal failure (ARF) Status: stable, progressing, tolerating diet, ambulating well Recommendations AED conversion to oral meds Keppra 1500mg BID Valproate 1500mg ---> 1000mg BID secondary to serum levels being high. No s/s of toxicity. Q4 hr neuro obs Final EEG before discharge if possible. If not possible and patient remains stable, he may be discharged with instructions for follow up EEG. SBP<140 MRI Brain results pending. Patient stable for discharge from a neurological perspective. Kenia Pompa N.P. Aug 01, 2018 15:58
--- NOTE | 2018-08-01 15:59 | Neurology Progress Note ---
Interim History Interim History ROS Limited/Unobtainable: No Complaints: AMS Events: EEG done today with no clinical correlation to pt status Interim History This visit was performed on August 01, [address] Abad Iniguez. Review of Systems Neuro Review of Systems MRI results negative for acute intracranial process but C2 process noted incidentally and scan was prominent for encephalomalacia. All Systems: reviewed and negative except above Objective Physical Exam Last Vital Signs Date Time Temp Pulse Resp B/P (MAP) Pulse Ox O2 Delivery O2 Flow Rate FiO2 08/01/18 12:00 2.0 08/01/18 12:00 58 08/01/18 12:00 98.3 20 118/68 98 Nasal Cannula 08/01/18 08:33 28 Laboratory Tests Test 07/31/18 20:35 07/31/18 23:00 08/01/18 03:30 Activated Partial Thromboplast Time 45 SEC (23-33) H 300 SEC (23-33) *H Valproic Acid (Depakene) Level 124 MCG/ML (50-100) *H White Blood Count 7.3 K/UL (4.8-10.8) Red Blood Count 3.95 M/UL (4.70-6.10) L Hemoglobin 11.8 G/DL (14.2-18.0) L Hematocrit 34.5 % (42.0-52.0) L Mean Corpuscular Volume 87 FL (80-99) Mean Corpuscular Hemoglobin 29.8 PG (27.0-31.0) Mean Corpuscular Hemoglobin Concent 34.1 G/DL (32.0-36.0) Red Cell Distribution Width 14.2 % (11.6-14.8) Platelet Count 141 K/UL (150-450) L Mean Platelet Volume 3.9 FL (6.5-10.1) L Neutrophils (%) (Auto) 68.1 % (45.0-75.0) Lymphocytes (%) (Auto) 20.1 % (20.0-45.0) Monocytes (%) (Auto) 9.2 % (1.0-10.0) Eosinophils (%) (Auto) 2.2 % (0.0-3.0) Basophils (%) (Auto) 0.4 % (0.0-2.0) Prothrombin Time 13.4 SEC (9.30-11.50) H Prothromb Time International Ratio 1.3 (0.9-1.1) H Sodium Level 140 MMOL/L (136-145) Potassium Level 3.4 MMOL/L (3.5-5.1) L Chloride Level 104 MMOL/L (98-107) Carbon Dioxide Level 26 MMOL/L (21-32) Anion Gap 10 mmol/L (5-15) Blood Urea Nitrogen 7 mg/dL (7-18) Creatinine 0.8 MG/DL (0.55-1.30) Estimat Glomerular Filtration Rate mL/min (>60) Glucose Level 91 MG/DL (74-106) Calcium Level 8.4 MG/DL (8.5-10.1) L Magnesium Level 1.8 MG/DL (1.8-2.4) General: well developed, well nourished Head: normocophalic Neck: no rigidity EENT: benign Neurologic Exam Mental Status: awake, alert, oriented x4, normal recent memory, normal remote memory, preserved visuospatial function Speech: normal speech, no dysarthia Language: other Cranial Nerve II: fundus normal, visual dodd, no papilledema Cranial Nerves III, IV, : PERRLA, EOMI Cranial Nerve V: normal facial sensations, temporales function normal, masseters function normal, pterygoids function normal, other Cranial Nerve VII: no facial asymmetry, normal facial expressions Cranial Nerve VIII: normal hearing, no nystagmus Cranial Nerve IX: normal palate elevation, gag response Cranial Nerve X: no voice hoarseness Cranial Nerve XI: SCM symmetric, trapezii function normal, other Cranial Nerve XII: tongue midline, no tongue atrophy/fasciculations, other Motor System: normal muscle tone, strength 5/5, no involuntary movement, no muscle wasting Sensory: normal pinprick, normal light touch, other Coordination: normal finger to nose bilaterally, normal heel to escalante bilaterally Deep Tendon Reflexes: 1+ bicep (L), 1+ bicep (R), 1+ tricep (L), 1+ tricep (R) , 1+ brachioradialis (L), 1+ brachioradialis (R), 1+ knee (L), 1+ knee (R), 1+ ankle (L), 1+ ankle (R) Reflexes: flexor plantar (L), flexor plantar (R); extensor plantar (L), extensor plantar (R) Stance: normal Gait: stable Imaging EEG REPORT DATE OF TRACIN07/28/2018 REQUESTING PHYSICIAN: Abad Iniguez M.D. READING PHYSICIAN: Jori Donahue M.D. PROCEDURE PERFORMED: Electroencephalogram. HISTORY: This EEG was performed on a 72-year-old gentleman with history of multiple medical problems including an alteration in mental state and questionable seizures. The purpose of this EEG was to evaluate the patient for the degree and type of cerebral dysfunction and to exclude ongoing inter-ictal or ictal phenomena. TECHNICAL NOTE: This EEG was performed on a [employer] with electrodes placed on the scalp according to the International 10-20 system. Avfws-me-iafqx and jjugj-rp-jnr montages were used. The EEG was technically satisfactory and was performed in the awake and drowsy states. OBSERVATIONS: In the best awake state, the background activity consisted of 8.5- 9 Hz alpha activity in the posterior derivations. Drowsiness was characterized by slowing of the background in the 4-5 Hz theta range. Throughout the tracing, bilateral frontal polymorphic delta activity was noted. In addition, F3 and F4 sharp and slow wave discharges were also seen sometimes occurring singly and at other times in a brief runs of 4 to 5 discharges. No definite electrographic or clinical seizures were noted. IMPRESSION: This is an abnormal EEG characterized by: 1. Polymorphic delta activity seen in the frontal derivations. 2. Bilateral frontal sharp and slow wave discharges occurring either singly or in brief runs. COMMENT: This study is consistent with: 1. Bilateral frontal dysfunction. 2. Epileptogenic foci in the right and left frontal area with interictal discharges seen on this EEG. Jori Donahue M.D., M.S.P.H. DR: Reyna JOB#: [id number] <Electronically signed by Jori Donahue MD> 07/31/18 1038 MTH0 [id number] [place], [place] [address] ELECTROENCEPHALOGRAM Patient: FIDENCIO LANDRY JR [facility] Rec #: [id number] Patient No.: [id number] Date of Service: 07/13/18 MTF0 30 Page of [facility] [address] [facility] [place] [address] [phone], fax [phone] Phil Boogie M.D. Luggage Repairer Patient : FIDENCIO LANDRY JR Referring Physician: Kenia Pompa N.P. ID Number: [id number] Service Date: 07/31/18 : 1945 Report Date: 08/01/18 Gender: M Accession No.: [id number] Location: Procedure: MRI Brain no Contrast Indication: Altered mental status, confusion, seizures Technique: sagittal T1 fast spin echo, axial T1 FLAIR, axial T2 FLAIR, axial T2 FS PROPELLER, axial T2* GRE, axial diffusion weighted images. ADC and exponential ADC maps generated Comparison: 01/12/[address]; no comparison brain MRI studies Findings: There is extensive high T2 and low T1 signal abnormality involving the bilateral inferior frontal lobes symmetrically. This correlates with hypodensity is seen on prior CT scan. Abnormal white matter and cortical T2 signal is seen in the left temporal lobe. This correlates with hypodensity demonstrated on prior CT scan. There is less extensive deep white matter high hyperintensity in the right anterior temporal lobe, as well as some cortical high T2 signal and low T1 signal in the posterior right temporal lobe. No definite correlate is abnormality on prior CT demonstrated. Abnormal high or mostly white matter but also cortical T2 signal with some volume loss is seen in the posterior right parietal lobe. This correlates with encephalomalacia demonstrated in this area on prior CT scan. No evidence of acute hemorrhage. No diffusion restriction demonstrated. There is age-related volume loss which is progressive since prior exam. Old lacunar infarcts are seen in the basal ganglia bilaterally. Abnormal low signal is seen near the odontoid process of the C2 vertebral segment. The right mastoid air cells demonstrate considerable fluid. There is minimal maxillary sinus mucosal thickening. Impression: Extensive white matter and cortical signal abnormality, as described above. Given absence of associated diffusion abnormality and evidence of similar abnormalities on prior CT scan, findings are most likely on the basis of encephalomalacia, presumably due to ischemia or other prior insults. Progressed cortical and central volume loss Negative for acute intracranial bleed or mass effect This agrees with the preliminary interpretation provided overnight by [facility] teleradiology service. Abnormal signal within the C2 odontoid, may indicate pathological process. Consider cervical spine MRI for better characterization. This finding was not described on the preliminary report, was phoned to Dr. Shine at the time of interpretation Dictated By: Wilbert Hernandez MD Electronically Signed By: Wilbert Hernandez MD Signed Date/Time 08/01/18 9563 CC: Kenia Pompa N.P.; Will Mejía MD Impression/Recommendations Problems: (1) Acute metabolic encephalopathy (2) Acute encephalopathy (3) Drug abuse (4) COPD (chronic obstructive pulmonary disease) (5) Diabetes mellitus (6) Anemia (7) Acute respiratory failure (8) Seizure disorder (9) UTI (urinary tract infection) (10) Prostate cancer, primary, 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 site (11) Iron deficiency anemia (12) Acute renal failure (ARF) Assessment & Plan: Clinical seizures controlled. 2nd AED (Valproate added - up to 1500mg BID, now lowered to 1000mg BID oral) with no evidence of clinical seizures at this time. DATE OF PROCEDURE: 08/01/2018 REQUESTING PHYSICIAN: Will Mejía M.D. READING PHYSICIAN: Jori Donahue M.D. PROCEDURE PERFORMED: Electroencephalogram. HISTORY: This EEG was performed on a 72-year-old gentleman with a history of seizures. The purpose of this EEG was to evaluate the patient for ongoing ictal or interictal phenomena. TECHNICAL NOTE: This EEG was performed on a [employer] Unit with electrodes placed on the scalp according to the international 10-20 system. Qapad-yu-icptl and wrmej-mc-tnh montages were used. The EEG was of technically mediocre quality because the railway signal technician made no indications as to what state the patient was in throughout the tracing. The railway signal technician made no note of the state of the patient throughout the tracing. OBSERVATIONS: What seemed to be in awake state, the background activity consisted of 8 to 9 hertz alpha activity over the left hemisphere and 5 to 6 hertz theta activity with intermixed delta frequencies over the right hemisphere. Frequent F4 sharp and slow-wave discharges sometimes spreading to F4-C4 was seen. No clinical manifestations were described. IMPRESSION: This is an abnormal EEG characterized by, 1. Slowing of the background in the 5 to 6 hertz theta range with intermixed delta frequencies over the right hemisphere. 2. The presence of frequent F4 sharp and slow-wave discharges sometimes spreading to the F4-C4 region. COMMENT: The study is consistent with, 1. Right hemispheric dysfunction. 2. Continuous epileptogenic discharges emanating from the right frontal central region. Clinical correlation is recommended. Jori Donahue M.D. DR: ARNALDO JOB#: [id number] CC: [facility] [address] [place], [place] [address] ELECTROENCEPHALOGRAM [id number] Patient No.: [id number] Date of Service: 07/13/18 MTF0 30 Page of Status: stable, progressing, tolerating diet, ambulating well Recommendations AED conversion to oral meds Keppra 1500mg BID Valproate 1500mg ---> 1000mg BID secondary to serum levels being high. No s/s of toxicity. Q4 hr neuro obs Final EEG before discharge if possible. If not possible and patient remains stable, he may be discharged with instructions for follow up EEG. SBP<140 Can follow up with Cervical spinal imaging as outpatient, Patient stable for discharge from a neurological perspective. Kenia Pompa N.P. Aug 01, 2018 15:59
[2018-08-01 16:00] VITALS: BP 143/75
[2018-08-01] MEDS ORDERED: Warfarin Sodium 5mg ORAL ONE (17:00)
--- NOTE | 2018-08-01 19:25 | NUR ---
HAND-OFF: Report given to RONI Nova. No acute s/s of distress noted.
--- NOTE | 2018-08-01 19:30 | NUR ---
NURSE NOTES: Report received from Juanito Jacobson RN. Pt is resting in bed in stable condition. Pt is AOx4 with slightly delayed response time and garbled speech. Pt is on 2L O2 via nasal cannula and breathing is even and unlabored. No acute distress noted. IV site is L upper arm DL PICC line, inserted 07/16/18. Last dressing change was 07/28/18. Site and dressing are clean, dry and intact. Bed is placed in lowest position with brake engaged, side rails up x3, and bed alarm on. Call light and side table placed within reach. Pt instructed to call prior to attempting to get out of bed. Pt verbalized understanding. Will continue to monitor.
[2018-08-01 20:00] VITALS: BP 123/62
[2018-08-01] MEDS: Depakote 500mg tab ORAL SCH (22:15)
[2018-08-01] MEDS: Dyna-Hex 2% Top Sol 2oz TOPIC SCH (22:16)
[2018-08-02] VITALS: BP 102/62
[2018-08-02 04:00] VITALS: BP 100/47
--- NOTE | 2018-08-02 05:15 | NUR ---
NURSE NOTES: Labs drawn from PICC line and given to Yolanda mine laborer, to take to lab.
[2018-08-02] MEDS: NovoLOG Insulin Flexpen SUBQ SCH ×3 (06:30→16:30)
--- NOTE | 2018-08-02 07:26 | NUR ---
HAND-OFF: Report given to Juanito Montenegro RN. Pt is resting in bed in stable condition. No acute distress noted. Endorsed plan of care.
--- NOTE | 2018-08-02 07:27 | NUR ---
NURSE NOTES: Received report from RONI Nova. The patient is sleeping on the bed without acute distress or shortness of breath. The patient's bed in the lowest position, call light in reach, and fall, aspiration, and seizure precaution reinforced. Seizure padding completed. Patency of PICC line confirmed. Will continue plan of care.
[2018-08-02 07:28] LABS: BASOPHILS % (AUTO) 0.5 % (0.0-2.0); HEMATOCRIT 31.1 % (42.0-52.0); HEMOGLOBIN 10.3 G/DL (14.2-18.0); LYMPHOCYTES % (AUTO) 14.4 % (20.0-45.0); MEAN CORPUSCULAR VOLUME 88 FL (80-99); MONOCYTES % (AUTO) 10.3 % (1.0-10.0); NEUTROPHILS % (AUTO) 73.9 % (45.0-75.0); PLATELET COUNT 130 K/UL (150-450); RED BLOOD COUNT 3.51 M/UL (4.70-6.10); WHITE BLOOD COUNT 8.4 K/UL (4.8-10.8)
[2018-08-02 07:34] LABS: ALANINE AMINOTRANSFERASE < 6 U/L (12-78); ALBUMIN 2.1 G/DL (3.4-5.0); ALBUMIN/GLOBULIN RATIO 0.5 (1.0-2.7); ALKALINE PHOSPHATASE 86 U/L (46-116); ANION GAP 6 mmol/L (5-15); ASPARTATE AMINO TRANSFERASE 13 U/L (15-37); BILIRUBIN,TOTAL 0.4 MG/DL (0.2-1.0); BLOOD UREA NITROGEN 8 mg/dL (7-18); CALCIUM 8.5 MG/DL (8.5-10.1); CARBON DIOXIDE 27 MMOL/L (21-32); CHLORIDE 106 MMOL/L (98-107); CREATININE 0.9 MG/DL (0.55-1.30); POTASSIUM 3.3 MMOL/L (3.5-5.1); SODIUM 139 MMOL/L (136-145)
[2018-08-02 07:42] LABS: INR 3.4 (0.9-1.1)
[2018-08-02 08:00] VITALS: BP 112/61
[2018-08-02] MEDS: Spironolactone 25mg tab ORAL SCH (09:04)
[2018-08-02] MEDS: Depakote 500mg tab ORAL SCH (09:05)
--- NOTE | 2018-08-02 09:30 | NUR ---
NURSE NOTES: Reported Potassium level of 3.3, and the patient is on Spironolactone 25mg to Dr. Mejía. Will continue to monitor the patient and carry out the order as soon as receives it. Will continue to monitor the patient.
--- NOTE | 2018-08-02 09:49 | GI Progress Note ---
Assessment/Plan Problems: (1) Severe malnutrition ICD Codes: E43 - Unspecified severe protein-calorie malnutrition SNOMED: 16778465 (2) Encounter for PEG (percutaneous endoscopic gastrostomy) ICD Codes: Z43.1 - Encounter for attention to gastrostomy SNOMED: 847881781, 396611238 (3) Dehydration ICD Codes: E86.0 - Dehydration SNOMED: 22659031 (4) Drug abuse ICD Codes: F19.10 - Drug abuse SNOMED: 14335372 (5) Iron deficiency anemia ICD Codes: D50.9 - Iron deficiency anemia SNOMED: 34071788 (6) Anemia ICD Codes: D64.9 - Anemia, unspecified SNOMED: 432976213 Status: stable Status Narrative Discussed with Dr. Rubin. Assessment/Plan Patient refused PEG, improving encephalopathy per psych Diet advanced, patient tolerating Strict aspiration precautions PT evaluation okay for DC per GI standpoint The patient was seen and examined at bedside and all new and available data was reviewed in the patients chart. I agree with the above findings, impression and plan. (Patient seen earlier today. Signature stamp does not reflect patient encounter time.). - Mu Rubin MD Subjective Gastrointestinal/Abdominal: Reports: no symptoms Objective Last 24 Hour Vital Signs Date Time Temp Pulse Resp B/P (MAP) Pulse Ox O2 Delivery O2 Flow Rate FiO2 08/02/18 09:37 99 Nasal Cannula 2.0 28 08/02/18 08:00 97.5 53 18 112/61 98 Bi-pap 30 53 08/02/18 04:00 97.8 52 16 100/47 99 Bi-pap 30 08/02/18 04:00 55 08/02/18 04:00 30 08/02/18 03:03 64 16 98 Facial 30 08/02/18 01:48 68 16 98 Facial 30 08/02/18 00:00 70 08/02/18 00:00 97.6 70 17 102/62 99 Bi-pap 30 08/02/18 00:00 30 08/01/18 23:46 62 16 98 Facial 30 08/01/18 21:00 Nasal Cannula 3.0 08/01/18 20:49 95 Nasal Cannula 2.0 28 08/01/18 20:00 97.8 82 20 123/62 99 Nasal Cannula 2.0 08/01/18 20:00 2.0 6/19/19 20:00 80 08/01/18 16:00 2.0 08/01/18 16:00 76 08/01/18 16:00 97.5 89 20 143/75 98 Nasal Cannula 2.0 08/01/18 12:00 2.0 08/01/18 12:00 58 08/01/18 12:00 98.3 57 20 118/68 98 Nasal Cannula 2.0 Intake and Output 08/01/18 08/02/18 18:59 06:59 Intake Total 18.18 ml Output Total 600 ml 3 ml Balance -581.82 ml -3 ml IV Total 18.18 ml Output Urine Total 600 ml 3 ml # Bowel Movements 1 Laboratory Tests Test 08/02/18 06:30 White Blood Count 8.4 K/UL (4.8-10.8) Red Blood Count 3.51 M/UL (4.70-6.10) L Hemoglobin 10.3 G/DL (14.2-18.0) L Hematocrit 31.1 % (42.0-52.0) L Mean Corpuscular Volume 88 FL (80-99) Mean Corpuscular Hemoglobin 29.3 PG (27.0-31.0) Mean Corpuscular Hemoglobin Concent 33.2 G/DL (32.0-36.0) Red Cell Distribution Width 14.0 % (11.6-14.8) Platelet Count 130 K/UL (150-450) L Mean Platelet Volume 3.7 FL (6.5-10.1) L Neutrophils (%) (Auto) 73.9 % (45.0-75.0) Lymphocytes (%) (Auto) 14.4 % (20.0-45.0) L Monocytes (%) (Auto) 10.3 % (1.0-10.0) H Eosinophils (%) (Auto) 1.0 % (0.0-3.0) Basophils (%) (Auto) 0.5 % (0.0-2.0) Prothrombin Time 34.1 SEC (9.30-11.50) H Prothromb Time International Ratio 3.4 (0.9-1.1) H Sodium Level 139 MMOL/L (136-145) Potassium Level 3.3 MMOL/L (3.5-5.1) L Chloride Level 106 MMOL/L (98-107) Carbon Dioxide Level 27 MMOL/L (21-32) Anion Gap 6 mmol/L (5-15) Blood Urea Nitrogen 8 mg/dL (7-18) Creatinine 0.9 MG/DL (0.55-1.30) Estimat Glomerular Filtration Rate mL/min (>60) Glucose Level 73 MG/DL (74-106) L Calcium Level 8.5 MG/DL (8.5-10.1) Total Bilirubin 0.4 MG/DL (0.2-1.0) Aspartate Amino Transf (AST/SGOT) 13 U/L (15-37) L Alanine Aminotransferase (ALT/SGPT) < 6 U/L (12-78) L Alkaline Phosphatase 86 U/L (46-116) Total Protein 6.2 G/DL (6.4-8.2) L Albumin 2.1 G/DL (3.4-5.0) L Globulin 4.1 g/dL Albumin/Globulin Ratio 0.5 (1.0-2.7) L Height (Feet): 6 Weight (Pounds): 171 General Appearance: WD/WN, no apparent distress, alert Cardiovascular: normal rate Respiratory/Chest: normal breath sounds, no respiratory distress Abdominal Exam: normal bowel sounds, non tender, soft Extremities: normal range of motion, non-tender Objective Patient pulled Gerald Garsia NP Aug 02, 2018 09:49
--- NOTE | 2018-08-02 10:02 | Infectious Diseases Prog Note ---
Assessment/Plan Assessment/Plan 72 yo male with PMHx of TBI, Seizure disorder, COPD, Encephalopathy, DM, HTN, CVA, Renal failure, CAD and Dysphagia s/p Peg who was brought to the ED on with intractable seizures. Respiratory failure Most probably due to seizures Active PNA unlikely Sputum Cx 07/12/18 - NF Bacteriuria UTI unlikely UCx - Staph h. S/P 2 days Vancomycin DVT right leg On Heparin TBI Seizure disorder COPD Encephalopathy DM HTN CVA Renal failure CAD Dysphagia s/p Peg Extubated 07/19/18 PLAN - Continue to monitor off abx - 07/29/18 S/P Cefazolin #7 - 07/15/18 S/P Vancomycin and Zosyn #2 - Supportive care - Monitor CBC and Temps Subjective Allergies: Coded Allergies: HALOPERIDOL (Verified Allergy, Mild, [place] really bad, 07/05/16) Makes him irritable. THIORIDAZINE (Verified Allergy, Mild, [place] really bad, 07/05/16) Makes him violent TRAZODONE (Verified Allergy, Mild, [place] really bad, 07/05/16) Too strong; inability to move. Uncoded Allergies: PSYCHOTROPIC MEDICATION (Allergy, Mild, 08/13/14) Subjective MARIANA Afebrile No Leukocytosis Objective Vital Signs Last 24 Hour Vital Signs Date Time Temp Pulse Resp B/P (MAP) Pulse Ox O2 Delivery O2 Flow Rate FiO2 08/02/18 09:37 99 Nasal Cannula 2.0 28 08/02/18 08:00 97.5 53 18 112/61 98 Bi-pap 30 53 08/02/18 04:00 97.8 52 16 100/47 99 Bi-pap 30 08/02/18 04:00 55 08/02/18 04:00 30 08/02/18 03:03 64 16 98 Facial 30 08/02/18 01:48 68 16 98 Facial 30 08/02/18 00:00 70 08/02/18 00:00 97.6 70 17 102/62 99 Bi-pap 30 08/02/18 00:00 30 08/01/18 23:46 62 16 98 Facial 30 08/01/18 21:00 Nasal Cannula 3.0 08/01/18 20:49 95 Nasal Cannula 2.0 28 08/01/18 20:00 97.8 82 20 123/62 99 Nasal Cannula 2.0 08/01/18 20:00 2.0 08/01/18 20:00 80 08/01/18 16:00 2.0 08/01/18 16:00 76 08/01/18 16:00 97.5 89 20 143/75 98 Nasal Cannula 2.0 08/01/18 12:00 2.0 08/01/18 12:00 58 08/01/18 12:00 98.3 57 20 118/68 98 Nasal Cannula 2.0 Height (Feet): 6 Weight (Pounds): 171 Objective GEN: NAD, Satting well on 2L NC HEENT: DMM, PERRL LUNGS: CTAB, No W/C CARDS: RRR, S1, S2, ABD: Soft, ND SKIN: Warm/dry, No rashes Laboratory Tests Test 08/02/18 06:30 White Blood Count 8.4 K/UL (4.8-10.8) Red Blood Count 3.51 M/UL (4.70-6.10) L Hemoglobin 10.3 G/DL (14.2-18.0) L Hematocrit 31.1 % (42.0-52.0) L Mean Corpuscular Volume 88 FL (80-99) Mean Corpuscular Hemoglobin 29.3 PG (27.0-31.0) Mean Corpuscular Hemoglobin Concent 33.2 G/DL (32.0-36.0) Red Cell Distribution Width 14.0 % (11.6-14.8) Platelet Count 130 K/UL (150-450) L Mean Platelet Volume 3.7 FL (6.5-10.1) L Neutrophils (%) (Auto) 73.9 % (45.0-75.0) Lymphocytes (%) (Auto) 14.4 % (20.0-45.0) L Monocytes (%) (Auto) 10.3 % (1.0-10.0) H Eosinophils (%) (Auto) 1.0 % (0.0-3.0) Basophils (%) (Auto) 0.5 % (0.0-2.0) Prothrombin Time 34.1 SEC (9.30-11.50) H Prothromb Time International Ratio 3.4 (0.9-1.1) H Sodium Level 139 MMOL/L (136-145) Potassium Level 3.3 MMOL/L (3.5-5.1) L Chloride Level 106 MMOL/L (98-107) Carbon Dioxide Level 27 MMOL/L (21-32) Anion Gap 6 mmol/L (5-15) Blood Urea Nitrogen 8 mg/dL (7-18) Creatinine 0.9 MG/DL (0.55-1.30) Estimat Glomerular Filtration Rate mL/min (>60) Glucose Level 73 MG/DL (74-106) L Calcium Level 8.5 MG/DL (8.5-10.1) Total Bilirubin 0.4 MG/DL (0.2-1.0) Aspartate Amino Transf (AST/SGOT) 13 U/L (15-37) L Alanine Aminotransferase (ALT/SGPT) < 6 U/L (12-78) L Alkaline Phosphatase 86 U/L (46-116) Total Protein 6.2 G/DL (6.4-8.2) L Albumin 2.1 G/DL (3.4-5.0) L Globulin 4.1 g/dL Albumin/Globulin Ratio 0.5 (1.0-2.7) L Current Medications Medications (Trade) Dose Ordered Sig/Jesi Route PRN Reason Start Time Stop Time Status Last Admin Dose Admin Acetaminophen (Tylenol) 650 mg Q6H PRN NG FOR TEMP > 100 OR PAIN 1-07/26/18 04:30 08/19/18 04:29 Albuterol/ Ipratropium (Albuterol/ Ipratropium) 3 ml Q4HRT PRN HHN sob 07/29/18 10:30 08/03/18 10:29 Chlorhexidine Gluconate (Candie-Hex 2%) 1 applic DAILY@1999 TOPIC 07/26/18 20:00 08/15/18 19:59 08/01/18 22:16 Dextrose (Dextrose 50%) 25 ml Q30M PRN IV Hypoglycemia 07/26/18 04:15 08/12/18 01:14 Dextrose (Dextrose 50%) 50 ml Q30M PRN IV Hypoglycemia 07/26/18 04:15 08/12/18 01:14 Divalproex Sodium (Depakote) 1,000 mg EVERY 12 HOURS ORAL 08/01/18 21:00 08/31/18 08:59 08/02/18 09:05 Famotidine (Pepcid I.v.) 20 mg Q12HR IVP 07/26/18 09:00 08/12/18 08:59 08/02/18 09:04 Insulin Aspart (NovoLOG) BEFORE MEALS AND HS SUBQ 07/31/18 11:30 08/12/18 12:29 Levetiracetam (Keppra) 1,500 mg Q12HR ORAL 07/31/18 21:00 08/30/18 20:59 08/02/18 09:05 Spironolactone (Aldactone) 25 mg EVERY 12 HOURS ORAL 07/27/18 21:00 08/26/18 20:59 08/02/18 09:04 Warfarin Sodium (Coumadin per pharmacy) 1 ea DAILY PRN MISC Per rx protocol 07/31/18 14:00 08/30/18 13:59 Matteo Hunt MD Aug 02, 2018 10:02
--- NOTE | 2018-08-02 10:58 | NUR ---
DISCHARGE DISPOSITION: PLEASE READ PATIENT TO BE DISCHARGED TO [facility] [address] [facility] [address] T: [phone]>> CALL FOR REPORT [facility] ETA 1300 BLS TRANSFER REPORT TO BE PROVIDED Addendum: 08/02/18 at 1515 by Clarisse Renee ERVIN FRAUSTO UNABLE TO ACCOMMODATE. [place] BEGUM AWARE. [facility] ETA 1631
[2018-08-02] MEDS ORDERED: KEPPRA500 MG ORAL (11:39)
[2018-08-02] MEDS ORDERED: DEPAKOTE500 MG ORAL (11:39)
[2018-08-02] MEDS ORDERED: SPIRONOLACTONE25 MG ORAL (11:39)
[2018-08-02] MEDS ORDERED: Warfarin per pharmacy MISC (11:39)
[2018-08-02] MEDS ORDERED: NOVOLOG100 UNITS1 SUBQ (11:39)
--- NOTE | 2018-08-02 11:43 | Pulmonology Progress Note ---
Assessment/Plan Problems: (1) At high risk for aspiration (2) DVT (deep venous thrombosis) (3) COPD (chronic obstructive pulmonary disease) (4) Lumbar spondylosis (5) posttraumatic seizure disorder (6) Diabetes mellitus (7) Anemia (8) Chronic low back pain (9) Seizure disorder Assessment/Plan pt eating by himself on Nasal Canula now respiratory treatment check electrolytes swallow study sliding scale diabetic diet symptomatic treatment inr is therapeutic now dvt prophylaxis. Subjective ROS Limited/Unobtainable: No Constitutional: Reports: no symptoms HEENT: Repors: no symptoms Allergies: Coded Allergies: HALOPERIDOL (Verified Allergy, Mild, [place] really bad, 07/05/16) Makes him irritable. THIORIDAZINE (Verified Allergy, Mild, [place] really bad, 07/05/16) Makes him violent TRAZODONE (Verified Allergy, Mild, [place] really bad, 07/05/16) Too strong; inability to move. Uncoded Allergies: PSYCHOTROPIC MEDICATION (Allergy, Mild, 08/13/14) Objective Last 24 Hour Vital Signs Date Time Temp Pulse Resp B/P (MAP) Pulse Ox O2 Delivery O2 Flow Rate FiO2 08/02/18 09:37 99 Nasal Cannula 2.0 28 08/02/18 09:00 Nasal Cannula 2.0 08/02/18 08:00 2.0 08/02/18 08:00 97.5 53 18 112/61 98 Bi-pap 30 53 08/02/18 04:00 97.8 52 16 100/47 99 Bi-pap 30 08/02/18 04:00 55 08/02/18 04:00 30 08/02/18 03:03 64 16 98 Facial 30 08/02/18 01:48 68 16 98 Facial 30 08/02/18 00:00 70 08/02/18 00:00 97.6 70 17 102/62 99 Bi-pap 30 08/02/18 00:00 30 08/01/18 23:46 62 16 98 Facial 30 08/01/18 21:00 Nasal Cannula 3.0 08/01/18 20:49 95 Nasal Cannula 2.0 28 08/01/18 20:00 97.8 82 20 123/62 99 Nasal Cannula 2.0 08/01/18 20:00 2.0 08/01/18 20:00 80 08/01/18 16:00 2.0 08/01/18 16:00 76 08/01/18 16:00 97.5 89 20 143/75 98 Nasal Cannula 2.0 08/01/18 12:00 2.0 08/01/18 12:00 58 08/01/18 12:00 98.3 57 20 118/68 98 Nasal Cannula 2.0 Intake and Output 08/01/18 08/02/18 18:59 06:59 Intake Total 18.18 ml Output Total 600 ml 3 ml Balance -581.82 ml -3 ml IV Total 18.18 ml Output Urine Total 600 ml 3 ml # Bowel Movements 1 General Appearance: WD/WN HEENT: normocephalic, atraumatic Respiratory/Chest: chest wall non-tender, lungs clear Cardiovascular: normal peripheral pulses, normal rate Abdomen: normal bowel sounds, no organomegaly Genitourinary: normal external genitalia Extremities: no clubbing Skin: no rash Neurologic/Psychiatric: no motor/sensory deficits, normal mood/affect Laboratory Tests 08/02/18 06:30: White Blood Count 8.4, Red Blood Count 3.51L, Hemoglobin 10.3L, Hematocrit 31.1L , Mean Corpuscular Volume 88, Mean Corpuscular Hemoglobin 29.3, Mean Corpuscular Hemoglobin Concent 33.2, Red Cell Distribution Width 14.0, Platelet Count 130L, Mean Platelet Volume 3.7L, Neutrophils (%) (Auto) 73.9, Lymphocytes (%) (Auto) 14.4L, Monocytes (%) (Auto) 10.3H, Eosinophils (%) (Auto) 1.0, Basophils (%) (Auto) 0.5, Prothrombin Time 34.1H, Prothromb Time International Ratio 3.4H, Sodium Level 139, Potassium Level 3.3L, Chloride Level 106, Carbon Dioxide Level 27, Anion Gap 6, Blood Urea Nitrogen 8, Creatinine 0.9, Estimat Glomerular Filtration Rate , Glucose Level 73L, Calcium Level 8.5, Total Bilirubin 0.4, Aspartate Amino Transf (AST/SGOT) 13L, Alanine Aminotransferase ( ALT/SGPT) < 6L, Alkaline Phosphatase 86, Total Protein 6.2L, Albumin 2.1L, Globulin 4.1, Albumin/Globulin Ratio 0.5L Current Medications Medications (Trade) Dose Ordered Sig/Jesi Route PRN Reason Start Time Stop Time Status Last Admin Dose Admin Acetaminophen (Tylenol) 650 mg Q6H PRN NG FOR TEMP > 100 OR PAIN 1-07/26/18 04:30 08/19/18 04:29 Albuterol/ Ipratropium (Albuterol/ Ipratropium) 3 ml Q4HRT PRN HHN sob 07/29/18 10:30 08/03/18 10:29 Chlorhexidine Gluconate (Candie-Hex 2%) 1 applic DAILY@2000 TOPIC 07/26/18 20:00 08/15/18 19:59 08/01/18 22:16 Dextrose (Dextrose 50%) 25 ml Q30M PRN IV Hypoglycemia 07/26/18 04:15 08/12/18 01:14 Dextrose (Dextrose 50%) 50 ml Q30M PRN IV Hypoglycemia 07/26/18 04:15 08/12/18 01:14 Divalproex Sodium (Depakote) 1,000 mg EVERY 12 HOURS ORAL 08/01/18 21:00 08/31/18 08:59 08/02/18 09:05 Famotidine (Pepcid I.v.) 20 mg Q12HR IVP 07/26/18 09:00 08/12/18 08:59 08/02/18 09:04 Insulin Aspart (NovoLOG) BEFORE MEALS AND HS SUBQ 07/31/18 11:30 08/12/18 12:29 Levetiracetam (Keppra) 1,500 mg Q12HR ORAL 07/31/18 21:00 08/30/18 20:59 08/02/18 09:05 Spironolactone (Aldactone) 25 mg EVERY 12 HOURS ORAL 07/27/18 21:00 08/26/18 20:59 08/02/18 09:04 Warfarin Sodium (Coumadin per pharmacy) 1 ea DAILY PRN MISC Per rx protocol 07/31/18 14:00 08/30/18 13:59 Maria E Shine MD Aug 02, 2018 11:42
[2018-08-02 12:00] VITALS: BP 134/48
--- NOTE | 2018-08-02 13:00 | NUR ---
NURSE NOTES: Report given to Cindy, who is a receiving nurse at [facility]. The patient will go to room 4B per Cindy. Full course of hospitalization was explained to Cindy. Asked to follow up changed dosage of Keppra and Valproate Acid. Asked to schedule final EEG and cervical spinal imaging per neurologist recommendation. Asked to start warfarin for right femoral DVT per doctor's order. Informed that strict aspiration and seizure precaution should be made. Right wrist skin tear picture taken.
[2018-08-02 16:00] VITALS: BP 122/71
--- NOTE | 2018-08-02 18:44 | Internal Med Progress Note ---
Subjective Date of Service: Aug 02, 2018 Physician Name Michael Rojo Attending Physician Will Mejía MD Current Medications Medications (Trade) Dose Ordered Sig/Jesi Route PRN Reason Start Time Stop Time Status Last Admin Dose Admin Acetaminophen (Tylenol) 650 mg Q6H PRN NG FOR TEMP > 100 OR PAIN 1-6 07/26/18 04:30 08/19/18 04:29 Albuterol/ Ipratropium (Albuterol/ Ipratropium) 3 ml Q4HRT PRN HHN sob 07/29/18 10:30 08/03/18 10:29 Chlorhexidine Gluconate (Candie-Hex 2%) 1 applic DAILY@2000 TOPIC 07/26/18 20:00 08/15/18 19:59 08/01/18 22:16 Dextrose (Dextrose 50%) 25 ml Q30M PRN IV Hypoglycemia 07/26/18 04:15 08/12/18 01:14 Dextrose (Dextrose 50%) 50 ml Q30M PRN IV Hypoglycemia 07/26/18 04:15 08/12/18 01:14 Divalproex Sodium (Depakote) 1,000 mg EVERY 12 HOURS ORAL 08/01/18 21:00 08/31/18 08:59 08/02/18 09:05 Famotidine (Pepcid I.v.) 20 mg Q12HR IVP 07/26/18 09:00 08/12/18 08:59 08/02/18 09:04 Insulin Aspart (NovoLOG) BEFORE MEALS AND HS SUBQ 07/31/18 11:30 08/12/18 12:29 Levetiracetam (Keppra) 1,500 mg Q12HR ORAL 07/31/18 21:00 08/30/18 20:59 08/02/18 09:05 Spironolactone (Aldactone) 25 mg EVERY 12 HOURS ORAL 07/27/18 21:00 08/26/18 20:59 08/02/18 09:04 Warfarin Sodium (Coumadin per pharmacy) 1 ea DAILY PRN MISC Per rx protocol 07/31/18 14:00 08/30/18 13:59 Allergies: Coded Allergies: HALOPERIDOL (Verified Allergy, Mild, [place] really bad, 07/05/16) Makes him irritable. THIORIDAZINE (Verified Allergy, Mild, [place] really bad, 07/05/16) Makes him violent TRAZODONE (Verified Allergy, Mild, [place] really bad, 07/05/16) Too strong; inability to move. Uncoded Allergies: PSYCHOTROPIC MEDICATION (Allergy, Mild, 08/13/14) Subjective 72 YO M admitted with breakthrough seizure. Now respiratory failure. Extubated 07/19/18; nasal canula. Cover for Int Connor-Dr Mejía. Patient Refused PEG. S/P MRI brain Objective Last Vital Signs Date Time Temp Pulse Resp B/P (MAP) Pulse Ox O2 Delivery O2 Flow Rate FiO2 08/02/18 16:00 96.6 58 18 122/71 100 Nasal Cannula 2.0 58 08/02/18 12:00 30 Laboratory Tests Test 08/02/18 06:30 White Blood Count 8.4 K/UL (4.8-10.8) Red Blood Count 3.51 M/UL (4.70-6.10) L Hemoglobin 10.3 G/DL (14.2-18.0) L Hematocrit 31.1 % (42.0-52.0) L Mean Corpuscular Volume 88 FL (80-99) Mean Corpuscular Hemoglobin 29.3 PG (27.0-31.0) Mean Corpuscular Hemoglobin Concent 33.2 G/DL (32.0-36.0) Red Cell Distribution Width 14.0 % (11.6-14.8) Platelet Count 130 K/UL (150-450) L Mean Platelet Volume 3.7 FL (6.5-10.1) L Neutrophils (%) (Auto) 73.9 % (45.0-75.0) Lymphocytes (%) (Auto) 14.4 % (20.0-45.0) L Monocytes (%) (Auto) 10.3 % (1.0-10.0) H Eosinophils (%) (Auto) 1.0 % (0.0-3.0) Basophils (%) (Auto) 0.5 % (0.0-2.0) Prothrombin Time 34.1 SEC (9.30-11.50) H Prothromb Time International Ratio 3.4 (0.9-1.1) H Sodium Level 139 MMOL/L (136-145) Potassium Level 3.3 MMOL/L (3.5-5.1) L Chloride Level 106 MMOL/L (98-107) Carbon Dioxide Level 27 MMOL/L (21-32) Anion Gap 6 mmol/L (5-15) Blood Urea Nitrogen 8 mg/dL (7-18) Creatinine 0.9 MG/DL (0.55-1.30) Estimat Glomerular Filtration Rate mL/min (>60) Glucose Level 73 MG/DL (74-106) L Calcium Level 8.5 MG/DL (8.5-10.1) Total Bilirubin 0.4 MG/DL (0.2-1.0) Aspartate Amino Transf (AST/SGOT) 13 U/L (15-37) L Alanine Aminotransferase (ALT/SGPT) < 6 U/L (12-78) L Alkaline Phosphatase 86 U/L (46-116) Total Protein 6.2 G/DL (6.4-8.2) L Albumin 2.1 G/DL (3.4-5.0) L Globulin 4.1 g/dL Albumin/Globulin Ratio 0.5 (1.0-2.7) L Intake and Output 08/01/18 08/02/18 18:59 06:59 Intake Total 18.18 ml Output Total 600 ml 3 ml Balance -581.82 ml -3 ml IV Total 18.18 ml Output Urine Total 600 ml 3 ml # Bowel Movements 1 Objective PHYSICAL EXAMINATION: GENERAL: The patient is a thin-appearing male, in no apparent distress. HEENT: Eyes, pupils are equal and responsive to light and accommodation. Extraocular movements are intact. NECK: Supple. No lymphadenopathy. CHEST: Nasal canula; Few expiratory wheezes bilaterally. Otherwise, without crackles or rales. CARDIOVASCULAR: Tachycardic, regular rate. S1 and S2 are normal without murmurs, rubs, or gallops. ABDOMEN: Soft, nontender, and nondistended. Positive bowel sounds. No evidence of hepatosplenomegaly. Currently, no rebound or guarding noted. EXTREMITIES: Negative for clubbing, cyanosis, or edema. RECTAL/GENITAL: Not performed. NEUROLOGICALLY: Unable to assess secondary to the patient's mental status. Assessment/Plan Assessment/Plan ASSESSMENT: This is a 72-year-old male. 1. Intractable seizures. 2. Respiratory failure. 3. Probable pneumonia of the right upper lobe. 4. History of seizure disorder. 5. Chronic obstructive pulmonary disease. 6. Diabetes type 2. 7. Hypertension. 8. Metabolic encephalopathy. 9. Chronic obstructive pulmonary disease. 10. Chronic renal failure. 11. Traumatic brain injury. 12. Gastroesophageal reflux disease. 13. Coronary artery disease. 14. Anemia. 15. History of gastrointestinal hemorrhage. 16. Hypercholesteremia. 17. Cerebrovascular disease, status post cerebrovascular accident. 18. Dysphagia. 19. Prostate cancer with mets 20. UTI=staph haemolyticus 21. Protein calorie Malnutrition TREATMENT: 1. Intractable seizure. A Neurology consultation has been obtained. The patient has been started on Ativan intravenously. We will follow recommendations of Neurology. Continue Keppra, Dilantin, and Depakote as above. 2. Respiratory failure. Pulmonary consultation has been obtained with Dr. Maria E Shine. The patient is S/P extubation 07/19/18 now on nasal canula We will follow recommendations of Pulmonary. 3. Chronic obstructive pulmonary disease. As above, a Pulmonary consultation has been obtained with Dr. Maria E Shine. 4. Diabetes type 2. The patient has been placed on a NovoLog sliding scale. 5. Hypertension. The patient is currently hypotensive. 6. Metabolic encephalopathy. 7. Renal failure. 8. Traumatic brain injury. 9. Gastroesophageal reflux disease. 10. Coronary artery disease. 11. Anemia. 12. Gastrointestinal hemorrhage. 13. Hypercholesterolemia. 14. Cerebrovascular disease. 15. Dysphagia, status post PEG placement 16. Abx=cefazolin 17. ID consult=Dr Hunt 18. Patient refused PEG-see psych note concerning competence. 19. MRI brain = neg acute dis 20. Discharge to [facility] today Michael Rojo MD Aug 02, 2018 18:44
--- NOTE | 2018-08-02 18:53 | NUR ---
NURSE NOTES: Report given to [facility] regarding new order and course of hospitalization. The patient denies of acute distress or shortness of breath. The patient's physical condition and vital signs was stable upon discharge. The patient does not have belongings with him and inventory form signed by the patient. Discharge instruction, teaching, change in dosage of medications, follow up of EEG, outpatient consult for cervical spinal imaging, seizure control, strict aspiration precaution, skin tear care given to Cindy, who is a receiving nurse at [facility] and the patient and discharge instruction form signed by the patient. MRSA swab completed. Name band, IV, and tele monitoring box removed by the nurse. The patient is safely back to [address] via [employer] transportation. Addendum: 08/02/18 at 1931 by Gary Montenegro RN *PICC line safely removed with the charge nurse's assistance.
--- NOTE | 2018-08-02 23:45 | Progress Note ---
DATE: 08/02/2018 SUBJECTIVE: The patient is calm, cooperative, more engaged, answering the questions appropriately, more clear. MENTAL STATUS EXAMINATION: The patient is alert and oriented times self. Mood is neutral. Affect is constricted, congruent with mood. Thought process is concrete. Thought content, no suicidal or homicidal ideation. ASSESSMENT: The patient is more stable, encephalopathy is improving. PLAN: 1. We will continue current medication. 2. Provide the patient with reality orientation and supportive therapy. Rayna Yu M.D. DR: KP JOB#: [id number] CC:
--- NOTE | 2018-08-03 14:38 | Discharge Summary ---
Discharge Summary Discharge Summary _ DATE OF ADMISSION: 07/13/2018 DATE OF DISCHARGE: 08/02/2018 DISCHARGED BY: Dr. Will Mejía CONSULTANTS: Dr. Rayna Iniguez [facility] HOSPITAL COURSE: Patient is a 72-year-old -[place] male, with history of traumatic brain injury and seizure disorder, was admitted with chief complaint of intractable seizures. Patient is a resident of [facility]. Patient started to have seizure on 07/12/2018. He was initially transported to [facility]. Patient was then transferred to [facility] for insurance purposes. Patient was then a direct admit and was admitted to ICU due to intractable breakthrough seizure. He was placed on seizure precautions. He was given IV Ativan prn seizures. He was continued on Keppra, Dilantin and Depakote. He was continued on vent support. Glucose was monitored. Hemoglobin A1c was stable. He was started empirically on IV antibiotics vancomycin and Zosyn. Venous duplex showed acute DVT on the right lower leg. He was started on heparin drip. ID was consulted. Urine culture showed growth of staph. Sputum culture with normal joana. Patient was afebrile and there was no leukocytosis. Antibiotics were discontinued. Patient was noted by nursing staff to have rhythmic motions. Valproate 1000 milligrams twice daily was added to his regimen. EEG performed showed moderately severe encephalopathy with definite toxic component as evidenced by abundance of beta activity; left more active than right frontal polar and frontal epileptogenic foci. On 07/19/2018, he was eventually extubated. He was placed on Venturi mask. BiPAP as needed. He was able to tolerate extubation. He was continued on O2 support. Patient had swallow evaluation done. Patient was assessed high risk for aspiration. He was recommended non-oral feeding to meet nutritional and hydration needs. GI was consulted. Patient had a history of PEG placement x2 as noted by the healed G-tube sites on his abdomen. He was recommended PEG tube placement pending consent. He had a difficult NG tube placement. He was eventually started on tube feedings. Chest x-ray done on 07/21/2018 showed internal development of patchy hazy opacities throughout the right mid and lower lung. Repeat sputum culture showed growth of staph or use and Jaimee. He was started on Ancef for probable MSSA pneumonia. Patient kept on pulling out NGT. Unable to locate family. Patient refused PEG tube placement. Psychiatrist was consulted. Patient was assessed to lack the capacity to make decision for G-tube replacement. He completed antibiotic treatment and was observed off antibiotics. Antiepileptic medications were transitioned to oral meds. MRI of the brain was negative for acute intracranial process. Repeat EEG showed bilateral frontal dysfunction with epileptogenic foci in the right and left frontal area with interictal discharges. He was continued on antiepileptic medications. Anticonvulsants were adjusted. Social service was consulted. Patient is not represented. Patient had a POLST completed on 03/24/2018 indicating CPR, full treatment and no artificial means of nutrition. Patient refused PEG tube placement and would like some time to think about it. He was eventually started on p.o. diet for quality of life. He was placed on strict aspiration precautions. Patient was tolerating diet. Patient was more stable and encephalopathy improved. INR was therapeutic. He was eventually discharged back to assisted. FINAL DIAGNOSES: Intractable seizures with breakthrough seizures Acute respiratory failure most probably due to seizures status post intubation and extubation on 07/19/2018 Acute right leg DVT Bacteriuria, unlikely UTI COPD Type 2 diabetes Acute metabolic encephalopathy Hypertension Traumatic brain injury GERD Iron deficiency anemia Coronary artery disease Hypercholesterolemia Old CVA Dysphagia with history of previous PEG tube placement Dehydration Prostate CA with mets Severe protein calorie malnutrition Transaminitis DISPOSITION: Patient was discharged to a SNF. DISCHARGE MEDICATIONS: Refer to Discharge Medication List. I have been assigned to complete a discharge summary on this account, I was not involved with the patient's management.--MANDI Barillas Jacqueline Robles NP Aug 03, 2018 14:38
--- NOTE | 2018-08-03 16:15 | Electroencephalogram ---
DATE OF PROCEDURE: 08/01/2018 REQUESTING PHYSICIAN: Will Mejía M.D. READING PHYSICIAN: Jori Donahue M.D. PROCEDURE PERFORMED: Electroencephalogram. HISTORY: This EEG was performed on a 72-year-old gentleman with a history of seizures. The purpose of this EEG was to evaluate the patient for ongoing ictal or interictal phenomena. TECHNICAL NOTE: This EEG was performed on a [employer] with electrodes placed on the scalp according to the international 10-20 system. [id number] and [id number] montages were used. The EEG was of technically mediocre quality because the blow mold technician made no indications as to what state the patient was in throughout the tracing. The blow mold technician made no note of the state of the patient throughout the tracing. OBSERVATIONS: What seemed to be in awake state, the background activity consisted of 8 to 9 hertz alpha activity over the left hemisphere and 5 to 6 hertz theta activity with intermixed delta frequencies over the right hemisphere. Frequent F4 sharp and slow-wave discharges sometimes spreading to F4-C4 was seen. No clinical manifestations were described. IMPRESSION: This is an abnormal EEG characterized by, 1. Slowing of the background in the 5 to 6 hertz theta range with intermixed delta frequencies over the right hemisphere. 2. The presence of frequent F4 sharp and slow-wave discharges sometimes spreading to the F4-C4 region. COMMENT: The study is consistent with, 1. Right hemispheric dysfunction. 2. Continuous epileptogenic discharges emanating from the right frontal central region. Clinical correlation is recommended. Jori Donahue M.D. DR: ARNALDO JOB#: [id number] CC:
== END 2018-08-02 19:05 | DRG 207 ==
LOC: ICU 07-13 00:19 → UNDOADMIN 07-13 00:19 → ICU 07-13 00:30 → 2W 07-21 19:41 → 2E 07-26 03:26
PROC: 5A1955Z Respiratory Ventilation, Greater than 96 Consecutive Hours (ICD-10-PCS; principal; 2018-07-13)
PROC: 0BH17EZ Insertion of Endotracheal Airway into Trachea, Via Natural or Artificial Opening (ICD-10-PCS; principal; 2018-07-13)
PROC: B548ZZA Ultrasonography of Superior Vena Cava, Guidance (ICD-10-PCS; 2018-07-16)
PROC: 02HV33Z Insertion of Infusion Device into Superior Vena Cava, Percutaneous Approach (ICD-10-PCS; 2018-07-16)
DX: J96.00 Acute respiratory failure, unspecified whether with hypoxia or hypercapnia (principal); J18.9 Pneumonia, unspecified organism; G93.41 Metabolic encephalopathy; E43 Unspecified severe protein-calorie malnutrition; G40.919 Epilepsy, unspecified, intractable, without status epilepticus; C79.89 Secondary malignant neoplasm of other specified sites; J44.0 Chronic obstructive pulmonary disease with (acute) lower respiratory infection; N17.9 Acute kidney failure, unspecified; I82.411 Acute embolism and thrombosis of right femoral vein; I82.431 Acute embolism and thrombosis of right popliteal vein; J44.9 Chronic obstructive pulmonary disease, unspecified; C61 Malignant neoplasm of prostate; I12.9 Hypertensive chronic kidney disease with stage 1 through stage 4 chronic kidney disease, or unspecified chronic kidney disease; E11.22 Type 2 diabetes mellitus with diabetic chronic kidney disease; N18.9 Chronic kidney disease, unspecified; K21.9 Gastro-esophageal reflux disease without esophagitis; I25.10 Atherosclerotic heart disease of native coronary artery without angina pectoris; R13.10 Dysphagia, unspecified; Z86.73 Personal history of transient ischemic attack (TIA), and cerebral infarction without residual deficits; D50.9 Iron deficiency anemia, unspecified; E78.00 Pure hypercholesterolemia, unspecified; R82.71 Bacteriuria; Z68.23 Body mass index [BMI] 23.0-23.9, adult; E86.0 Dehydration; I95.9 Hypotension, unspecified; F03.90 Unspecified dementia, unspecified severity, without behavioral disturbance, psychotic disturbance, mood disturbance, and anxiety; M54.5 Low back pain; E83.42 Hypomagnesemia
CPT/HCPCS: 36415; 36569; 36600; 70551; 71045; 74018; 74230; 76700; 76937; 80048; 80053; 80164; 80299; 82607; 82728; 82746; 82803; 82962; 83036; 83540; 83550; 83735; 83880; 84100; 84153; 84154; 84439; 84443; 85025; 85044; 85610; 85730; 86705; 86709; 86803; 86850; 86870; 86900; 86901; 86920; 87070; 87081; 87086; 87181; 87205; 87340; 93005; 93970; 93971; 94002; 94003; 94640; 94660; 94664; 95819; J1815; J8499